=== PATIENT | male | born 1940 | race Caucasian/White ===

== ENCOUNTER 2023-06-19 10:06 | Inpatient (IN) | payer MEDICARE, SELFPAY ==
--- NOTE | 2023-06-18 22:59 | ED.GENMED ---
History of Present Illness
<KOREY Viveros - Last Filed: 06/18/23 23:24>
General
Chief Complaint: Breathing Problem
Source: patient
Exam Limitations: none
Time Seen by Provider: 06/18/23 22:43
Nursing documentation reviewed up to this point in time: agreed with
Travel History
Have you had any contact with someone who has COVID-19?: No
Do you have any symptoms of coronavirus? Fever > 100 degrees, chills, cough, shortness of breath, sore throat, loss of taste or smell, muscle aches, or headache?: No
History of Present Illness
History of Present Illness:
83 y/o M with history of afib, CHF, and HTN presents to ED c/o SOB x 7-8 days. He states that he feels short of breath with mild activity. He can only go about 3 steps before he feels SOB. This is not his usual. Patient states that the SOB was only
with activity but for the past 2-3 days, he has been feeling SOB at rest. He is also reporting leg pain, specifically left knee, for the past 4 days. He states he falls often due to leg weakness but reports the pain was prior to his falls. He uses a
walker at home. He also has associated leg swelling bilaterally for the past few weeks for which he is following his skills trainer for. Patient dose for his diuretic was doubled from 20mg am/20mg pm to 40mg am and 40mg pm due to increased swelling.
He also reports a home nurse visits his house often to help check his weight for fluid retenion and monitor symptoms. He has an appointment with cardiology tomorrow but may cancel due to his pain and SOB. Patient denies nausea, vomiting, diarrhea,
cough, congestion, chest pain, palpitations or dizziness.
Past History
<KOREY Viveros - Last Filed: 06/18/23 23:24>
Past History
ED Past Medical History: Arrthythmia (Paroxysmal atrial fibrillation), CHF, COPD, CVA, HTN, Hypercholesterolemia and Other (CKD)
ED Past Surgical History: Orthopedic (Resection of a thoracic spine lesion and spinal fusion)
Social History
Tobacco: Former smoker
Alcohol: None
Drug: None
Personal:
Living: alone
Employment: Retired
Family History
Family History: Other (Noncontributory)
Review of Systems
<KOREY Viveros - Last Filed: 06/18/23 23:24>
Review of Systems
Allergies reviewed?: Yes
All Other Systems: ROS reviewed and negative except as documented in HPI and ROS
Constitutional: Reports no symptoms
EENT: Reports no symptoms
Respiratory: Reports trouble breathing
Cardiac: Reports other (edema )
ABD/GI: Reports no symptoms
: Reports no symptoms
Musculoskeletal: Reports edema and other (leg pain)
Skin: Reports no symptoms
Neurological: Reports no symptoms
Endocrine: Reports no symptoms
Hematologic/Lymphatic: Reports no symptoms
Psychiatric: Reports no symptoms
Phy Exam
<KOREY Viveros - Last Filed: 06/18/23 23:24>
General Physical Exam
General Presentation: well appearing and no apparent distress
General age: appears stated age
General Skin: warm and dry
General Habitus: normal
General Mental: alert
General Hydration: appears well hydrated
ENT Exam
ENT Exam: EOMI, TM's normal, pharynx normal and neck supple
Eye Exam
Eye Exam: PERRL and EOMI
Cardiovascular Exam
Cardiovascular Exam: irregularly irregular
Pulmonary Exam
Pulmonary Exam: lungs clear and no respiratory distress
Neurological Exam
Neurological Exam: alert and oriented x3
Musculoskeletal Exam
Musculoskeletal Exam: neuro vasc intact and other (tender along lateral medial and posterior patella border, L knee mildly swollen )
Skin Exam
Skin Exam: other (edema and erythema in bilateral legs)
<Phyllis Pettit DO - Last Filed: 06/19/23 02:24>
Heart Failure Risk
Heart Failure Risk Score: Yes
History of Stroke or TIA: Yes
History of intubation for respiratory distress: No
Heart rate on ED arrival >/= 110: No
SaO2 <90% on arrival on room air: No
HR >/=110 during 3min walk test (or too ill to perform test): Yes
ECG has acute ischemic changes: No
Urea >/=12mmol/L (BUN 33.6mg/dL): No
Serum CO2>/=35mmol/L: No
Troponin I or T elevated to VT Level (0.4mg/dL): No
NT-proBNP >/=5,000ng/L (5,000pg/ml): No
HF Risk Score: 3
Admission Status: HIGH RISK 15.9% Consider SNF treatment or admission to hospital
Course
<KOREY Viveros - Last Filed: 06/18/23 23:24>
Orders/Labs/Results
Orders:
Orders
06/18/23 21:25
Electrocardiogram (*1) Urgent
Reason for Study: Chest Pain
Cardiac Monitoring- Treatment ONCE
EKG- Treatment ONCE
IV Insert/Care/Rem.- Treatment PRN
O2 Therapy [RESP] Urgent
Titrate/Wean O2 to maintain O2 sat greater than (%): 90
Special Instructions: Maintain sats >/=90%
Pulse Ox/spot Check [RESP] Urgent
Quantity: 1
Special Instructions: ON ROOM AIR
06/18/23 23:03
CR Chest - 2 Views Urgent
Comment:
Reason For Exam: SOB, hx CHF, COPD
06/18/23 23:29
Knee, Left 4 or More Views [CR Knee - Left 4 Or More View*] Urgent
Comment:
Reason For Exam: knee pain
06/18/23 23:44
Complete Blood Count/With Diff Urgent
Sed Rate [Erythrocyte Sed Rate] Urgent
06/18/23 23:45
Pro-BNP [NT-proBNP] Urgent
Troponin I Urgent
06/19/23 00:00
US Periph Venous LOWER Ext Manjit Urgent
Reason For Exam: progressive b/l LE edema, SOB
06/19/23 00:40
Interrogate Pacemaker- Treatment ONCE
06/19/23 01:09
Comprehensive Metabolic Panel Urgent
PTT Urgent
Uric Acid Urgent
Comment: REDRAW
Abnormal Lab Results
06/19/23 06/19/23
00:41 01:09
RBC 4.00 L 10^6/uL
(4.70-6.10)
Hgb 12.2 L g/dL
(13.0-18.0)
Hct 37.7 L %
(39.0-52.0)
MCV 94.3 H fL
(80.0-94.0)
MCHC 32.4 L g/dL
(33.0-37.0)
Abs Immat Gran (auto) 0.1 H 10^3/uL
(0-0.05)
Absolute Neuts (auto) 8.2 H 10^3/uL
(1.4-6.5)
Absolute Monos (auto) 0.9 H 10^3/uL
(0.1-0.6)
Immature Gran % 1.2 H %
(0-0.5)
Neutrophils % 78.3 H %
(42.2-75.2)
Lymphocytes % 11.0 L %
(20.5-51.1)
ESR 52 H mm/hour
(0-20)
Chloride 110 H mmol/L
(98-107)
BUN 27 H mg/dl
(9-20)
Uric Acid 10.2 H mg/dl
(3.5-8.5)
Calcium 7.7 L mg/dl
(8.4-10.2)
Total Protein 6.0 L g/dl
(6.3-8.2)
Albumin 3.2 L g/dl
(3.5-5.0)
06/19/23 00:41
06/19/23 01:09
Vital Signs
Initial and Last Documented VS:
Initial Vital Signs
Temp Pulse Resp Pulse Ox
97.8 F 86 28 95
06/18/23 21:19 06/18/23 21:19 06/18/23 21:19 06/18/23 21:19
Last Documented Vital Signs
Temp Pulse Resp Pulse Ox
97.8 F 86 28 95
06/18/23 21:19 06/18/23 21:19 06/18/23 21:19 06/18/23 21:19
<Phyllis Pettit DO - Last Filed: 06/19/23 02:24>
Orders/Labs/Results
Orders:
Orders
06/18/23 21:25
Electrocardiogram (*1) Urgent
Reason for Study: Chest Pain
Cardiac Monitoring- Treatment ONCE
EKG- Treatment ONCE
IV Insert/Care/Rem.- Treatment PRN
O2 Therapy [RESP] Urgent
Titrate/Wean O2 to maintain O2 sat greater than (%): 90
Special Instructions: Maintain sats >/=90%
Pulse Ox/spot Check [RESP] Urgent
Quantity: 1
Special Instructions: ON ROOM AIR
06/18/23 23:03
CR Chest - 2 Views Urgent
Comment:
Reason For Exam: SOB, hx CHF, COPD
06/18/23 23:29
Knee, Left 4 or More Views [CR Knee - Left 4 Or More View*] Urgent
Comment:
Reason For Exam: knee pain
06/18/23 23:44
Complete Blood Count/With Diff Urgent
Sed Rate [Erythrocyte Sed Rate] Urgent
06/18/23 23:45
Pro-BNP [NT-proBNP] Urgent
Troponin I Urgent
06/19/23 00:00
US Periph Venous LOWER Ext Manjit Urgent
Reason For Exam: progressive b/l LE edema, SOB
06/19/23 00:40
Interrogate Pacemaker- Treatment ONCE
06/19/23 01:09
Comprehensive Metabolic Panel Urgent
PTT Urgent
Uric Acid Urgent
Comment: REDRAW
Abnormal Lab Results
06/19/23 06/19/23
00:41 01:09
RBC 4.00 L 10^6/uL
(4.70-6.10)
Hgb 12.2 L g/dL
(13.0-18.0)
Hct 37.7 L %
(39.0-52.0)
MCV 94.3 H fL
(80.0-94.0)
MCHC 32.4 L g/dL
(33.0-37.0)
Abs Immat Gran (auto) 0.1 H 10^3/uL
(0-0.05)
Absolute Neuts (auto) 8.2 H 10^3/uL
(1.4-6.5)
Absolute Monos (auto) 0.9 H 10^3/uL
(0.1-0.6)
Immature Gran % 1.2 H %
(0-0.5)
Neutrophils % 78.3 H %
(42.2-75.2)
Lymphocytes % 11.0 L %
(20.5-51.1)
ESR 52 H mm/hour
(0-20)
Chloride 110 H mmol/L
(98-107)
BUN 27 H mg/dl
(9-20)
Uric Acid 10.2 H mg/dl
(3.5-8.5)
Calcium 7.7 L mg/dl
(8.4-10.2)
Total Protein 6.0 L g/dl
(6.3-8.2)
Albumin 3.2 L g/dl
(3.5-5.0)
06/19/23 00:41
06/19/23 01:09
Vital Signs
Initial and Last Documented VS:
Initial Vital Signs
Temp Pulse Resp Pulse Ox
97.8 F 86 28 95
06/18/23 21:19 06/18/23 21:19 06/18/23 21:19 06/18/23 21:19
Last Documented Vital Signs
Temp Pulse Resp Pulse Ox
97.8 F 86 28 95
06/18/23 21:19 06/18/23 21:19 06/18/23 21:19 06/18/23 21:19
<KOREY Viveros - Last Filed: 06/18/23 23:24>
MDM/Problems Addressed
Differential Diagnosis Includes:
Arrhythmia
CHF
Knee fracture?
<Phyllis Pettit DO - Last Filed: 06/19/23 02:24>
*Radiology
Radiology exam reviewed: preliminary read by ED provider (Chest x-ray shows cardiomegaly, mild interstitial fullness, perhaps minimally improved compared to previous film June 2022. No evidence of infiltrate. Left knee x-ray shows mild DJD, no
evidence of fracture.) and radiology read reviewed (Venous Doppler bilateral lower extremities negative for DVT.)
*Pulse Oximetry
Patient hypoxic: no
*EKG
Interpreted by ED Provider?: Yes
Interpretation: abnormal
Comparison EKG: changes noted (Atrial fibrillation is new compared to previous EKG showing normal sinus rhythm.)
Rate: normal
Rhythm: a-fib
[place]: left axis deviation
Interval: normal QT interval
QRS Pattern: normal QRS
Ischemia: no ischemia
*Regulator Assembler Interpretation
Rate: normal
Interpretation: abnormal
Rhythm: a-fib
*Critical Care Note
Total Time (30-74mins, 75-104mins- exclusive of procedures): Not Applicable
ED Attending Note
<KOREY Viveros - Last Filed: 06/18/23 23:24>
-
Portions of this chart may have been created with voice recognition software.� Occasional wrong word or��sound alike� substitutions may have occurred due to the inherent limitations of voice recognition software.
<Phyllis Pettit DO - Last Filed: 06/19/23 02:24>
ED Attending Note
Patient seen and examined by attending physician: Yes
I performed the substantive portion of visit, reviewed & personally made and approve the management plan that is documented in note by myself or BALTAZAR.: Yes
I performed a history and physical exam of patient and discussed management with resident, I reviewed resident's note and agree with documented findings and plan of care.: Yes
ED Attending Note:
This is an 83-year-old gentleman who has history of chronic diastolic CHF, paroxysmal atrial fibrillation maintained on Pradaxa, hypertension, chronic lymphedema, COPD, hyperlipidemia, hypothyroidism with previous hospitalization July 2022 for
acute on chronic CHF.
He follows with cardiology, Dr. Shin and was evaluated by PA in office 5 weeks ago due to some dyspnea on exertion and progression of bilateral lower extremity edema. At that time torsemide was increased from 20 mg twice daily to 40 mg twice
daily.
Despite increase in diuretic and despite minimal improvement/downtrend in weights he continues with significant bilateral lower extremity edema and has had progressive dyspnea on exertion much more so over the past week especially over the past 2 to
3 days.
He denies cough nor fever, denies palpitations nor chest pain, denies dizziness nor lightheadedness.
He has prior history of gout but reports no recent gout attacks.
He does however complain of left anterior knee pain that began 3 to 4 days ago. He has suffered several falls to his knees. He chronically uses a walker to ambulate and states over the past several weeks his legs have 'given out on him' and he has
fallen onto his knees most recently this morning. He has had no head injuries, no loss of consciousness, no neck or back pain.
He has a follow-up appointment with Dr. Shin scheduled for tomorrow but due to progressive dyspnea on exertion, much more so over the past few days he had a friend dropped him off at the [facility].
GENERAL: 83-year-old obese gentleman appears his stated age. Awake and alert, appears in no acute distress. Mild resting tachypnea noted when speaking. No cough appreciated.
EYE: pupils equal and reactive. anicteric
NECK: Supple, nontender, no meningismus, no significant adenopathy. Mild JVD.
ENT: oral mucosa is moist. No rhinorrhea.
CARDIAC: Irregularly irregular at a rate of 60-80, no murmur.
LUNGS: Mild resting tachypnea. Scant bibasilar rales otherwise lungs are clear to auscultation. No cough appreciated.
ABDOMEN: Rotund, soft, nondistended, without focal tenderness, no r/g, no cvat. normoactive BS.
NEUROLOGICAL: Alert and oriented x3, no focal neuro deficits.
SKIN: Warm and dry, mildly pale in color, skin intact. Moderate erythematous inguinal rash bilaterally. There is moderate global erythema to the left great toe.
MUSCULOSKELETAL: Significant global edema bilateral lower extremities left leg greater than right leg. There is very minimal ecchymosis left anterior knee with mild to moderate tenderness to palpation left anterior knee. No definitive joint
effusion, no erythema. There is full knee range of motion with increased pain with flexion greater than 90 degrees. No crepitus. No laxity. There is moderate global erythema to the left great toe with moderate local tenderness to palpation. No
lymphangitis. No tenderness to the foot nor ankle. Peripheral pulses are full and equal b/l.
PSYCH: Normal and appropriate interaction.
Concern for acute exacerbation of CHF, less likely exacerbation of COPD especially with lack of cough. Pneumonia is less likely as well with lack of cough nor fever.
Patient has no prior history of DVT nor previous thromboembolism and although no history of chronic lymphedema bilateral lower extremity, left leg is globally larger than right thus concern for potential DVT. Will check ultrasound bilateral lower
extremities.
He has history of paroxysmal A-fib, currently in A-fib with controlled ventricular response. Unclear as to how long he has been in A-fib. Will attempt to interrogate [employer] recorder. Patient himself believes EKG was performed 5 weeks ago at
skills trainer office and he recalls no mention of A-fib at that time.
Exam remarkable for bilateral inguinal erythema most consistent with tinea cruris. Cellulitis is less likely.
He is also noted to have moderate global erythema and mild to moderate tenderness left great toe which may be gout related. Focal cellulitis is another consideration.
06/19/2023 0211 AM
Labs show elevated BNP at 2600, this has trended up from 1800 in April.
Troponin is negative.
Creatinine 1.3, baseline 1.0-1.3 with occasional uptrend to 1.5/1.8.
Mildly to moderately elevated sed rate of 50, similar elevation noted previously as well as moderately elevated uric acid of 10 has trended down slightly from 2021 but remains elevated.
CBC shows mild anemia, similar to previous.
Chest x-ray shows cardiomegaly, very minimal interstitial fullness, overall similar to previous June 2022.
Left knee x-ray shows mild DJD, no evidence of fracture.
Venous Doppler bilateral lower extremities negative for DVT.
Due to progressive dyspnea on exertion, now unable to ambulate more than 2 to 3 feet without needing to stop to rest I suspect this is related to acute on chronic CHF and patient will require acute hospitalization.
Will initiate IV Lasix and admit to hospitalist service.
Discharge Plan
Departure
Patient Disposition: Admit
Date of Disposition: 06/19/23
Time of Disposition: 02:21
Admit to: Telemetry
Admit to doctor: Micah
Presentation/result/management discussed w/ accepting MD/DO: Hospitalist
Condition: Fair
Discharge Problem:
Acute on chronic diastolic (congestive) heart failure, Atrial fibrillation with controlled ventricular rate, Contusion of knee, left, Tinea cruris
Prescriptions:
No Action
atorvastatin 40 MG tablet
40 mg PO QPM
dabigatran etexilate [Pradaxa] 150 MG capsule
150 mg PO BID
folic acid 0.4 MG tablet
1 mg PO Q48H
tamsulosin 0.4 MG capsule
0.4 mg PO HS
finasteride 5 MG tablet
5 mg PO HS
metoprolol tartrate 25 MG tablet
25 mg PO BID
aspirin 81 MG tablet,delayed release (DR/EC)
81 mg PO DAILY
multivitamin with folic acid [Tab-A-Rikki] 1 TABLET tablet
1 tab PO TUTH
levothyroxine 112 MCG tablet
112 mcg PO DAILY
fluoxetine [Prozac] 40 MG capsule
40 mg PO HS
albuterol sulfate [ProAir HFA] 90 mcg/actuation Hfa Aerosol Inhaler
2 inh INHALATION R BID
Anoro Ellipta 62.5-25 mcg/actuation Blister With Device
1 inh INHALATION R DAILY
acetaminophen 325 MG tablet
650 mg PO Q4HPRN PRN (Reason: mild pain)
torsemide 20 mg Tablet
20 mg PO BID@0800,1600 Qty: 60 0RF
hydralazine 25 mg Tablet
25 mg PO TID Qty: 90 0RF
potassium chloride [Klor-Con] 20 mEq Packet
20 meq PO BID@0800,1600 Qty: 60 0RF
prednisone 20 mg Tablet
40 mg PO DAILY Qty: 4 0RF
mirtazapine 30 MG tablet
15 mg PO HS Qty: 0 0RF
Referrals:
Rajiv Pavon MD [Family Provider] -
Interventions
Interventions:
*General Assessment Last Done: 06/18/23 21:19
*Neglect/Abuse Screening Last Done: 06/18/23 21:19
ED- Fall Risk Assessment Last Done: 06/18/23 21:19
*ED COVID-19 Vaccine History Last Done: 06/18/23 21:19
[2023-06-18 23:00] VITALS: BP 137/71
[2023-06-19] VITALS (12 sets, daily range): BP systolic 123–182; BP diastolic 61–106; BMI 42.7; BMI 41.9
[2023-06-19 00:56] LABS: % Basophils 0.2 % (0-2); % Immature Granulocytes 1.2 % (0-0.5); % Monocytes 8.3 % (1.7-9.3); % Neutrophils 78.3 % (42.2-75.2); Absolute Eosinophils 0.1 10^3/uL (0-0.7); Absolute Immature Granulocytes 0.1 10^3/uL (0-0.05); Absolute Lymphocytes 1.2 10^3/uL (1.2-3.4); Absolute Monocytes 0.9 10^3/uL (0.1-0.6); Absolute Neutrophils 8.2 10^3/uL (1.4-6.5); Hematocrit 37.7 % (39.0-52.0); Hemoglobin 12.2 g/dL (13.0-18.0); Mean Corp Hgb Conc. 32.4 g/dL (33.0-37.0); Mean Corpuscular Hgb 30.5 pg (27.0-31.0); Mean Corpuscular Volume 94.3 fL (80.0-94.0); Mean Platelet Volume 9.9 fL (7.4-10.4); Nucleated Red Blood Cells % 0 % (-); Platelet Count 201 10^3/uL (130-400); Red Cell Dist. Width 14.4 % (11.5-14.5); White Blood Cell Count 10.4 10^3/uL (4.8-10.8)
[2023-06-19 01:14] LABS: NT-proBNP 2610 pg/ml; Troponin I < 0.012 ng/ml
[2023-06-19 01:31] LABS: Erythrocyte Sed Rate 52 mm/hour (0-20)
[2023-06-19 01:35] LABS: APTT 30.3 Sec (23.4-35.0)
[2023-06-19 01:45] LABS: ALT (SGPT) 10 U/L (0-50); AST (SGOT) 18 U/L (17-59); Albumin 3.2 g/dl (3.5-5.0); Alkaline Phosphatase 99 U/L (38-126); Blood Urea Nitrogen 27 mg/dl (9-20); Calcium 7.7 mg/dl (8.4-10.2); Carbon Dioxide 26 mmol/L (22-30); Chloride 110 mmol/L (98-107); Glucose 97 mg/dl (70-99); Potassium 3.7 mmol/L (3.5-5.1); Sodium 141 mmol/L (135-145); Total Bilirubin 0.4 mg/dl (0.2-1.3); Uric Acid 10.2 mg/dl (3.5-8.5); eGFR 54.51
[2023-06-19] MEDS: LASIX 40 MG IV ×3 (02:42→16:14)
--- NOTE | 2023-06-19 05:09 | HPS.HSE ---
Family Physician
-
Family Physician: Rajiv Pavon
Chief Complaint
-
SOB
History of Present Illness
Allergies
Allergy/AdvReac Type Severity Reaction Status Date / Time
No Known Allergies Allergy Verified 06/18/23 21:17
Home Medications
atorvastatin 40 mg tablet 40 mg PO QPM High cholesterol 01/19/20
dabigatran etexilate 150 mg capsule (Pradaxa) 150 mg PO BID Blood clot prevention/tx 01/19/20
aspirin 81 mg tablet,delayed release 81 mg PO DAILY Blood clot prevention/tx 04/07/20
finasteride 5 mg tablet 5 mg PO HS Urinary issue 04/07/20
folic acid 400 mcg tablet 1 mg PO Q48H Supplement 04/07/20
metoprolol tartrate 25 mg tablet 25 mg PO BID Blood pressure 04/07/20
multivitamin with folic acid 400 mcg tablet (Tab-A-Rikki) 1 tab PO TUTH Supplement 04/07/20
tamsulosin 0.4 mg capsule 0.4 mg PO HS Urinary issue 04/07/20
levothyroxine 112 mcg tablet 112 mcg PO DAILY Thyroid 07/21/21
fluoxetine 40 mg capsule (Prozac) 40 mg PO HS Mental Health/Anxiety 11/02/21
acetaminophen 325 mg tablet 650 mg PO Q4HPRN PRN mild pain 06/27/22
albuterol sulfate 90 mcg/actuation aerosol inhaler (ProAir HFA) 2 inh inhalation R BID PRN SOB 06/27/22
umeclidinium 62.5 mcg-vilanterol 25 mcg/actuation powdr for inhalation (Anoro Ellipta) 1 inh inhalation R DAILY 06/27/22
hydralazine 25 mg tablet 25 mg PO TID #90 tabs 07/07/22
mirtazapine 30 mg tablet 15 mg PO HS Mental Health/Anxiety #0 tabs 07/07/22
potassium chloride 20 mEq oral packet (Klor-Con) 20 meq PO BID@0800,1600 #60 ea 07/07/22
torsemide 20 mg tablet 40 mg PO BID@0800,1600 06/19/23
Medical History
Past Medical History
Past Medical History: Reports Arrhythmia (PAF on Pradaxa), CHF (HFpEF), COPD, HTN, Hypercholesterolemia, Renal Failure (CKD) and Other
Past Surgical History: Reports Cardiac (Cardioversion 06/30/22, [employer] )
Social History
Tobacco: Non-smoker
Alcohol: None
Drug: None
Family History
Family History: Not pertinent
Allergies / Home Medications
Allergies reflects when Allergies were last updated in [employer].
Home Medications with original date entered in [employer]
Allergy/Medication List:
Allergies
Allergy/AdvReac Type Severity Reaction Status Date / Time
No Known Allergies Allergy Verified 06/18/23 21:17
Home Medications
atorvastatin 40 mg tablet 40 mg PO QPM High cholesterol 01/19/20
dabigatran etexilate 150 mg capsule (Pradaxa) 150 mg PO BID Blood clot prevention/tx 01/19/20
aspirin 81 mg tablet,delayed release 81 mg PO DAILY Blood clot prevention/tx 04/07/20
finasteride 5 mg tablet 5 mg PO HS Urinary issue 04/07/20
folic acid 400 mcg tablet 1 mg PO Q48H Supplement 04/07/20
metoprolol tartrate 25 mg tablet 25 mg PO BID Blood pressure 04/07/20
multivitamin with folic acid 400 mcg tablet (Tab-A-Rikki) 1 tab PO TUTH Supplement 04/07/20
tamsulosin 0.4 mg capsule 0.4 mg PO HS Urinary issue 04/07/20
levothyroxine 112 mcg tablet 112 mcg PO DAILY Thyroid 07/21/21
fluoxetine 40 mg capsule (Prozac) 40 mg PO HS Mental Health/Anxiety 11/02/21
acetaminophen 325 mg tablet 650 mg PO Q4HPRN PRN mild pain 06/27/22
albuterol sulfate 90 mcg/actuation aerosol inhaler (ProAir HFA) 2 inh inhalation R BID PRN SOB 06/27/22
umeclidinium 62.5 mcg-vilanterol 25 mcg/actuation powdr for inhalation (Anoro Ellipta) 1 inh inhalation R DAILY 06/27/22
hydralazine 25 mg tablet 25 mg PO TID #90 tabs 07/07/22
mirtazapine 30 mg tablet 15 mg PO HS Mental Health/Anxiety #0 tabs 07/07/22
potassium chloride 20 mEq oral packet (Klor-Con) 20 meq PO BID@0800,1600 #60 ea 07/07/22
prednisone 20 mg tablet 40 mg PO DAILY #4 tabs 07/07/22
torsemide 20 mg tablet 40 mg PO BID@0800,1600 06/19/23
Review of Systems
-
A 12 point ROS was completed and negative except as noted: Yes
Physical Exam
Vital Signs
Vital Signs
Temp Pulse Resp BP Pulse Ox
97.8 F 68 21 131/78 93
06/18/23 21:19 06/19/23 04:45 06/19/23 04:45 06/19/23 04:00 06/19/23 04:45
Physical Exam
General: Well Developed, Well Nourished and No Apparent Distress
HEENT: NormoCephalic, Anicteric and Moist mucous membranes
Respiratory: Clear
Cardiac: S1/S2 and Regular Rhythm
GI: Soft, Non Tender, Non Distended and Normal Bowel Sounds
Musculoskeletal: No Clubbing, No Cyanosis, Edema, Left Lower Extremity and Edema, Right Lower Extremity
Skin: Warm and Dry
Neuro: AO x 3 and No Motor Deficits
Psych: Calm
Laboratory Results
-
06/19/23 00:41
06/19/23 01:09
Laboratory Results
APTT 30.3 Sec (23.4-35.0) 06/19/23 01:09
Total Bilirubin 0.4 mg/dl (0.2-1.3) 06/19/23 01:09
AST 18 U/L (17-59) 06/19/23 01:09
ALT 10 U/L (0-50) 06/19/23 01:09
Alkaline Phosphatase 99 U/L (38-126) 06/19/23 01:09
Troponin I < 0.012 ng/ml 06/19/23 00:41
Impression/Plan
-
IMPRESSION:
The patient is an 83 year old male with PMH significant for Atrial fibrillation, CHF, and HTN who presents to the ED due to dyspnea for the past 8 days, worse with mild activity. He also notes SOB at rest over the past 2-3 days. est. He is also
reporting leg pain, specifically left knee, for the past 4 days along with leg swelling. He recently increased Torsemide from 20 mg BID to 40 mg BID with good urine output.
ED txt:
Lasix 40 mg IV once
#Acute on chronic diastolic heart failure
-continue IV Lasix BID 40 mg
-Cardiology consultation is appreciated
-intake/output and daily weights
-monitor and replete electrolytes as needed
-check Mg and TSH
-Echo on 04/2023 normal LV function, mild pulmonary HTN, EF 55-60%
#Persistent A.fib
-continue BB and Pradaxa
#HTN
#HLD
#CKD creat is 1.3 (04/26/23 creat is 1.7)
DVT proph-Pradaxa
Full Code
[2023-06-19 07:03] LABS: Troponin I < 0.012 ng/ml
--- NOTE | 2023-06-19 08:30 | CON.CAR ---
Consultation
Consultation Request
Date/Time Consultation Requested: 06/19/19
Requesting Provider: Dr Obrien
Performing Provider: Dr Shin
Reason for Consultation: sob
Medical History
-
Chief Complaint: sob
History of Present Illness:
83-year-old gentleman who is well-known to me with a past medical history of HFpEF, persistent atrial fibrillation on Pradaxa, CKD 3A, COPD, hypertension, morbid obesity and lymphedema presented to the ED yesterday for evaluation of increasing
shortness of breath over the last 7 to 8 days. He was feeling winded with only 2-3 steps but over the last several days it has occurred with rest. He states he is not taking his torsemide as per shortness of breath come on all of a sudden and are
fleeting. Probably, he is having episodes of intermittent chest pain described as a burning in the left upper chest. These are also intermittent. He has had increasing lower extremity edema. He is not wrapping his legs. He is trying to be good
about his salt and fluid intake. He is compliant with his Pradaxa and reports no abnormal bleeding..
Past Medical History
Past Medical History: Arrhythmias (chronic afib), CHF (HFpEF), COPD, CVA, HTN, Hypothyroidism and Other
Social History
Tobacco: Non-Smoker
Alcohol: None
Living: Alone
Family History
Family History: Reviewed & Not Pertinent
Allergies / Home Medications
Allergy/AdvReac Type Severity Reaction Status Date / Time
No Known Allergies Allergy Verified 06/18/23 21:17
Medication Instructions Recorded Confirmed Type
atorvastatin 40 mg tablet 40 mg PO QPM High cholesterol 01/19/20 06/27/22 History
dabigatran etexilate 150 mg 150 mg PO BID Blood clot 01/19/20 06/27/22 History
capsule (Pradaxa) prevention/tx
aspirin 81 mg tablet,delayed 81 mg PO DAILY Blood clot 04/07/20 06/27/22 History
release prevention/tx
finasteride 5 mg tablet 5 mg PO HS Urinary issue 04/07/20 06/27/22 History
folic acid 400 mcg tablet 1 mg PO Q48H Supplement 04/07/20 06/27/22 History
metoprolol tartrate 25 mg tablet 25 mg PO BID Blood pressure 04/07/20 06/27/22 History
multivitamin with folic acid 400 1 tab PO TUTH Supplement 04/07/20 06/27/22 History
mcg tablet (Tab-A-Rikki)
tamsulosin 0.4 mg capsule 0.4 mg PO HS Urinary issue 04/07/20 06/27/22 History
levothyroxine 112 mcg tablet 112 mcg PO DAILY Thyroid 07/21/21 06/27/22 History
fluoxetine 40 mg capsule (Prozac) 40 mg PO HS Mental Health/Anxiety 11/02/21 06/27/22 History
acetaminophen 325 mg tablet 650 mg PO Q4HPRN PRN mild pain 06/27/22 06/27/22 History
albuterol sulfate 90 mcg/actuation 2 inh inhalation R BID PRN SOB 06/27/22 06/27/22 History
aerosol inhaler (ProAir HFA)
umeclidinium 62.5 mcg-vilanterol 1 inh inhalation R DAILY 06/27/22 06/27/22 History
25 mcg/actuation powdr for
inhalation (Anoro Ellipta)
hydralazine 25 mg tablet 25 mg PO TID #90 tabs 07/07/22 Rx
mirtazapine 30 mg tablet 15 mg PO HS Mental Health/Anxiety 07/07/22 06/27/22 Rx
#0 tabs
potassium chloride 20 mEq oral 20 meq PO BID@0800,1600 #60 ea 07/07/22 Rx
packet (Klor-Con)
prednisone 20 mg tablet 40 mg PO DAILY #4 tabs 07/07/22 Rx
torsemide 20 mg tablet 40 mg PO BID@0800,1600 06/19/23 History
Review of Systems
-
All other systems: Negative unless noted
Physical Exam
Vital Signs
Temp Pulse Resp BP Pulse Ox
97.8 F 75 28 127/68 93
06/18/23 21:19 06/19/23 07:30 06/19/23 07:30 06/19/23 07:00 06/19/23 07:15
Lab Results
06/19/23 00:41
06/19/23 01:09
Troponin I < 0.012 ng/ml 06/19/23 06:29
Yil-Y-Fxlxxktvnof Pept 2610 pg/ml 06/19/23 00:41
Physical Exam
General: Well Developed and Well Nourished
HEENT: Normocephalic
Respiratory: Clear, Wheezes (None), Crackles (None) and Rhonchi (None)
Cardiac: S1/S2, Irregular Rhythm, Murmur (None), Rub (None) and Peripheral Edema (Severe bilateral edema with mostly nonpitting and edema into the toes. Skin changes consistent of chronic lymphedema)
GI: Soft, Non Tender and Non Distended
Musculoskeletal: No Clubbing and No Cyanosis
Neuro: AO x 3
Impression / Plan
-
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
with complaints of shortness of breath.
Shortness of breath and chest pain: Intermittent, difficult to say what is the etiology.
-He has chronic lymphedema which makes it difficult to assess his body habitus. His chest x-ray is not overwhelming for volume overload.
Kidney function is normal.
-His risk factors, I would like to evaluate him with a right and left heart catheterization. This will help us evaluate his filling pressures and rule out ischemia as a source of his symptoms
HFpEF - chronic I suspect a an acute element to this.
Will continue with diuresis today.
will david out sglt2 inhibitor
Chronic Atrial Fibrillation
-Rates controlled
-Oral Anticoagulation: Continue�Pradaxa 150 mg BID. CrCl remains >30
-[id number]: score 6 (Heart failure, HTN, age 75 or more, prior Stroke/TIA)---will bridge while holding pradaxa for cath
� � �
HTN Urgency: resolved
-Continue�Hydralazine 25 mg TID.
CKD3a
-Follow with diuresis: stable
Obesity, morbid - BMI 42
Prior CVA
Chronic Lymphedema - add MEGAN wraps
Data:TTE 04/25/23: �
�Normal left ventricular size and systolic function without regional wall motion
�abnormality.
�Cannot comment on right ventricular size, but function appears normal.
PASP 46mmHG, IVC normal
�Compared to previous echo 06/28/2022, the prior study used Definity images. The
�pulmonary pressure has decreased from 55mmHg on the prior study.� The right
�ventricle now appears normal in function.
Data Reviewed
-
EKG: Tracing Personally Visualized and interpreted (atrial fibrillation with controlled ventricular response, ns st wane changes. )
Radiology: Image Personally Visualized and interpreted (no significant acute finding. )
Ultrasound: Report Reviewed by me (06/19/23 KAREN negative)
[2023-06-19] MEDS: STRIVERDI RESPIMAT 2 PUFF INH (08:32)
[2023-06-19] MEDS: SPIRIVA RESPIMAT 2.5 MCG 2 PUFF INH (08:32)
[2023-06-19] MEDS: ASPIR LOW (ENTERIC COATED) 81 MG PO (08:50)
[2023-06-19] MEDS: APRESOLINE 25 MG PO ×3 (08:50→22:54)
[2023-06-19] MEDS: SYNTHROID 112 MCG PO (08:51)
[2023-06-19] MEDS: PRADAXA 150 MG PO (08:51)
[2023-06-19] MEDS: FOLVITE 1 MG PO (08:52)
[2023-06-19] MEDS: LOPRESSOR 25 MG PO (08:52)
[2023-06-19] MEDS: THERAGRAN 1 TABLET PO (09:02)
--- NOTE | 2023-06-19 09:23 | W.PN.HOSP.TC ---
Today's Communication/Plan
-
cont iv diuresis, plan for cardiac cath
Assessment / Plan
Assessment / Plan
Physical exam:
General: Acutely ill, obese
HEENT: Normocephalic, Atraumatic and Moist Mucous Membranes
Respiratory: Scattered wheezes; Some crackles B/L. Negative Rhonchi
Cardiac: Irregular Rate and Rhythm and S1/S2
GI: Soft, Nontender and Nondistended
Musculoskeletal: No Clubbing, No Cyanosis. B/L Edema
Neuro: Awake, Alert and Oriented
Psych: Calm
A/P:
Acute on chronic diastolic heart failure/chest pain--> continue IV Lasix BID 40 mg, cardiology consult appreciated-->discussed with supervisor channel process today, Echo on 04/2023 normal LV function, mild pulmonary HTN, EF 55-60%. Start heparin drip tonight and
plan for cardiac cath tomorrow.
Persistent A.fib-->continue BB and Pradaxa(can hold for cardiac cath).
CKD--> avoid nephrotoxics, cont to monitor while diurese,
HTN--> cont current anti-hypertensives and adjust meds according to BP
Morbid obesity--> affect all spheres of care, might benefit from OP bariatric surgery if candidate.
DVT proph-Pradaxa-->heparin gtt
Full Code
Total time spent on today's encounter was 52 minutes which included time spent in counseling the patient/family regarding diagnosis and treatment plan as listed above, goals of care, and symptom management. Case was discussed with nursing staff,
specialists, and care coordinators/case management. All labs and imaging personally reviewed by me. Remainder the time spent in detailed review of previous records, lab data, imaging, and other medical provider documentation
Anticipated Discharge: > 48 hours
Subjective/Interval History
-
Date of Service: June 19, 2023
patient c/o sob, wheezing, LE edema. No cp today but had cp over the weekend prior to admission.
Objective Data
-
Labs:
Laboratory Results
06/19/23 06/19/23
00:41 01:09
WBC 10.4
Hgb 12.2 L
Hct 37.7 L
Plt Count 201
APTT 30.3
Sodium Cancelled 141
Potassium Cancelled 3.7
Chloride Cancelled 110 H
Carbon Dioxide Cancelled 26
BUN Cancelled 27 H
Creatinine Cancelled 1.3
Glucose Cancelled 97
Calcium Cancelled 7.7 L
Total Bilirubin Cancelled 0.4
AST Cancelled 18
ALT Cancelled 10
Alkaline Phosphatase Cancelled 99
Vital Signs:
Vital Signs
Temp Pulse Resp BP Pulse Ox
97.5 F 95 18 127/68 96
06/19/23 07:40 06/19/23 08:52 06/19/23 08:34 06/19/23 08:52 06/19/23 08:34
I&O
06/18/23 06/19/23 06/20/23
06:59 06:59 06:59
Output Total 200 / 200
Balance -200 / -200
--- NOTE | 2023-06-19 09:58 | VNURNOTE ---
Patient is current with [facility] since 03/08,now just w/SN, will monitor progress and plan at discharge.
[2023-06-19] MEDS: DESENEX/MITRAZOL/ZEASORB 1 APPLIC TOPICAL ×2 (10:11→22:55)
--- NOTE | 2023-06-19 10:57 | CM ---
Addendum entered by Lora Martin 06/19/23 11:15:
CM received consult for cost of Jardiance (10 mg) vs Farixga (10 mg). CM spoke with pharmacist at [facility], patient has Pacenet along with Medicare part D, has a $40 deductible monthly for Pacenet, which per Pharmacist, patients other
scripts pay into. Pharmacist reports david of Farxiga will be $15 a month would be cheaper than Jardiance.
Original Note:
Patient seen bedside, initial assessment completed. Emilio reports he lives alone in a town house, 13 steps to the second floor. Patient reports lately he has been sleeping on the couch on the first floor as steps have become difficult for him.
Patient reports he does still drive and is currently working with [facility]. Patient denies SNF. Patient confirms PCP Dr. Pavon at [facility], pharmacy used is [facility] in [place]. CM will continue to follow for discharge planning needs.
Plan; home with [facility] vs SNF, watch for PT/OT evals.
CM received TT that patient has been switched to inpatient status.
[2023-06-19 12:09] LABS: Troponin I < 0.012 ng/ml
[2023-06-19] MEDS: TYLENOL 650 MG PO (14:40)
[2023-06-19] MEDS: LIPITOR 40 MG PO (16:14)
[2023-06-19] MEDS: HEPARIN 25000 UNITS/250 ML IV (17:42)
[2023-06-19] MEDS: LOPRESSOR PO (21:23)
[2023-06-19] MEDS: FLOMAX 0.400000000000000022 MG PO (22:54)
[2023-06-19] MEDS: PROSCAR 5 MG PO (22:55)
[2023-06-19] MEDS: PROZAC 40 MG PO (22:55)
[2023-06-19] MEDS: REMERON 15 MG PO (22:55)
[2023-06-20] VITALS (16 sets, daily range): BP systolic 118–190; BP diastolic 61–140; BMI 42.5
[2023-06-20] MEDS: TYLENOL 650 MG PO (00:27)
[2023-06-20 01:18] LABS: APTT 90.6 Sec (23.4-35.0)
[2023-06-20] MEDS: LOPRESSOR 25 MG PO (07:41)
[2023-06-20] MEDS: ASPIR LOW (ENTERIC COATED) 81 MG PO (07:41)
[2023-06-20] MEDS: SYNTHROID 112 MCG PO (07:41)
[2023-06-20] MEDS: APRESOLINE 25 MG PO ×3 (07:42→22:33)
[2023-06-20] MEDS: DESENEX/MITRAZOL/ZEASORB 1 APPLIC TOPICAL ×2 (07:42→20:14)
[2023-06-20] MEDS: LASIX 40 MG IV (07:43)
[2023-06-20] MEDS: SPIRIVA RESPIMAT 2.5 MCG 2 PUFF INH (07:48)
[2023-06-20] MEDS: STRIVERDI RESPIMAT 2 PUFF INH (07:48)
[2023-06-20 07:54] LABS: APTT 75.1 Sec (23.4-35.0)
[2023-06-20 09:00] LABS: ALT (SGPT) < 10 U/L (0-50); AST (SGOT) 16 U/L (17-59); Albumin 2.9 g/dl (3.5-5.0); Alkaline Phosphatase 85 U/L (38-126); Blood Urea Nitrogen 32 mg/dl (9-20); Calcium 8.2 mg/dl (8.4-10.2); Carbon Dioxide 27 mmol/L (22-30); Chloride 106 mmol/L (98-107); Estimated Creatinine Clearance 55 ml/min; Glucose 105 mg/dl (70-99); Potassium 3.7 mmol/L (3.5-5.1); Sodium 140 mmol/L (135-145); Total Bilirubin 0.6 mg/dl (0.2-1.3); Total Protein 5.6 g/dl (6.3-8.2); eGFR 49.87
[2023-06-20 09:29] LABS: TSH Reflex To Free T4 3.73 uIU/ml (0.47-4.68)
[2023-06-20 09:35] LABS: Magnesium 2.5 mg/dl (1.6-2.3)
--- NOTE | 2023-06-20 12:17 | PTCARENOTE ---
1212: this Rn gave report to Alfreda Crowder via phone. pt will be transferred to IVU s/p procedure. This RN did not complete a physical assessment prior to pt leaving floor. belongings brought down to pts room in the IVU.
--- NOTE | 2023-06-20 12:24 | W.PN.CD ---
Today's Communication / Plan
-
L/RHC today.
We will adjust diuretics/GDMT aftewards.
Impression / Plan
-
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
Emergency Department with complaints of shortness of breath.
#Shortness of breath and chest pain
-Intermittent, difficult to say what is the etiology. Possible unstable angina.
-He has chronic lymphedema which makes it difficult to assess his body habitus. His chest x-ray is not overwhelming for volume overload.
-Given his multiple risk factors, it is reasonable to assess his coronary anatomy and filling pressures.
-L/RHC today.
-Continue secondary prevention with high dose, high potency statin.
#Acute on chronic HFpEF
-Weight is up compared to this time last year.
-Continue furosemide 40 mg IV BID.
-Assess filling pressures at cath today.
-Not currently on ACEI/ARB/ARNi (normal EF).
-He would benefit from SGLT2i. Start dapagliflozin 10 mg daily.
#Chronic Atrial Fibrillation
-Rates controlled on metoprolol.
-[id number]: score 6 (Heart failure, HTN, age 75 or more, prior Stroke/TIA).
-Oral Anticoagulation: resume�dabigatran 150 mg BID after cardiac catheterization.
#HTN
-Urgency resolved.
-BP's remain elevated.
-Hydralazine increased to 25 mg TID from home dose (10 mg TID).
-Would add isosorbide mononitrate 30 mg daily to hydralazine in the context of heart failure. This does not have an enormous BP effect but should be added and we can reassess BP afterward.
#CKD3a
-Baseline creatinine 1.3-1.6.
-Stable at 1.4.
#Prior CVA
-Chronic.
-Carotid Duplex shows < 50% bilateral stenoses.
#Obesity, morbid - BMI 42
#Chronic Lymphedema - add MEGAN wraps
Subjective/Interval History:
Some acute shortness in breath overnight.
Episodes are intermittent, occurring with exertion and occasionally at rest.
DATA:
TTE, 04/25/23: �
�Normal left ventricular size and systolic function without regional wall motion
�abnormality.
�Cannot comment on right ventricular size, but function appears normal.
PASP 46mmHG, IVC normal
�Compared to previous echo 06/28/2022, the prior study used Definity images. The
�pulmonary pressure has decreased from 55mmHg on the prior study.� The right
�ventricle now appears normal in function.
Physical Exam
Vital Signs/Labs
Vital Signs
Temp Pulse Resp BP Pulse Ox
36.3 C 75 20 138/75 93
06/20/23 07:59 06/20/23 07:59 06/20/23 07:59 06/20/23 07:59 06/20/23 07:59
06/19/23 06/20/23 06/21/23
11:59 11:59 11:59
Actual Weight 132.477 kg 134.263 kg
06/19/23 00:41
06/20/23 07:23
APTT 75.1 Sec (23.4-35.0) H 06/20/23 07:23
Magnesium 2.5 mg/dl (1.6-2.3) H 06/20/23 07:23
06/19/23
00:41
Osd-G-Tvbvktehwxj Pept 2610
LAB Results
06/19/23 06/19/23 06/19/23
00:41 06:29 11:37
Troponin I < 0.012 < 0.012 < 0.012
Physical Exam
Constitutional: No acute distress and Comfortable
EENT: Anicteric and Moist mucous membranes
Cardiovascular: Rhythm/rate is irregular, Pedal edema present, JVD present, S1S2 is normal and Murmur/rub/gallop absent
Respiratory: Respiratory effort normal, Lungs clear to auscul., Wheeze Absent, Crackles Absent and Rhonchi Absent
GI: Soft, Distention absent, Non tender, Normal bowel sounds and Other (Obese.)
Neuro/Psych: AO x 3
Data Reviewed
-
Date of Service: June 20, 2023
Medical Decision Making: Reviewed Test Results, Independent Historian Assessment, Test Interpretation and Review of Case with other Provider
EKG: Tracing Personally Visualized and interpreted
Echo: Report Reviewed by me
X-Ray/CT/US/MRI/NUC/PET: Image Personally Visualized and interpreted and Report Reviewed by me
Labs: Labs Reviewed by me
--- NOTE | 2023-06-20 12:37 | ITS.CL.ANGIO ---
[employer] - Angioplasty
Angioplasty
Procedure Report:
CARDIAC CATHETERIZATION REPORT
Date of Procedure: 06/20/2023
Referring: Britt Shin M.D.
Indication: Unstable angina, assessment of filling pressures.
PROCEDURE:
1. Right heart catheterization.
2. Left heart catheterization.
3. Coronary angiography.
4. IFR of the mid LAD.
5. Successful PCI of the mid LAD.
ACCESS:
6 Serbian right radial artery.
5 Serbian right antecubital vein.
CATHETERS:
1. 5 Serbian balloon wedge.
2. 5 Serbian JL 3.5.
3. 5 Serbian JR4.
4. 6 Serbian EBU 4.0 guiding catheter.
HEMODYNAMIC DATA
Weight (kg): 134.3
AO (s/d/x mmHg): 143/69/97
LV (s/x mmHg): 144/24
PCWP (a/v/x mmHg): 28//25
PA (s/d/x mmHg): 57/30/39
RV (s/x mmHg): 57/17
RA (a/v/x mmHg): /
SVC SvO2 (%): 64.4
PA SvO2 (%): 61.8
SaO2 (%): 94.9
Hbg (g/dL): 11.5
CO (L/min): 5.48
CI (L/min/m2): 2.22
TPG (mmHg): 14
PVR (East Units): 2.55
SVR (dynes*seconds*cm^-5): 1168
AVO2 Diff (Volume %): 5.18
AV gradient (x, mmHg): None.
AV area (cm2): Normal.
LEFT VENTRICULOGRAPHY: Not performed.
CORONARY ANGIOGRAPHY
Dominance: Codominant.
Left Main: Normal size, bifurcating vessel. There is no coronary artery disease.
LAD: Normal size vessel giving rise to 1 significant diagonal. There is a long, 30% lesion culminating in a 70% lesion in the mid vessel.
Ramus: Congenitally absent.
Circumflex: Large size, codominant vessel giving rise to 2 large obtuse marginals before terminating as a partial LPDA. There are minor luminal irregularities.
RCA: Normal size, codominant vessel that terminates as a partial RPDA. There are minor luminal irregularities.
INTERVENTIONS
1. Successful IFR of the 70% mid LAD lesion, demonstrating occlusive disease (IFR = 0.65).
2. Successful PCI of the 70% lesion, including the surrounding 30% plaque (overlapping Xience Skypoint 3.0 x 28 JANETTE, 3.25 x 8 JANETTE, postdilated with a 3.0 NC balloon) with reduction in stenoses to 0%, maintaining TOMY-3 flow.
Narrative:
The decision was made to perform physiologic testing. The diagnostic catheter was removed over a wire and exchanged for a(n) 6 Serbian EBU 4.0 guiding catheter. The guiding catheter was advanced into the ascending aorta and seated in the left main
coronary artery. Additional heparin was given to obtain an ACT greater than 250 seconds. An iFR wire was zeroed outside of the body, then inserted into the guiding sheath. The wire was advanced and the transducer was normalized just outside of the
guiding catheter tip. The wire was advanced into the distal LAD. Three iFR measurements were taken. The lesion was determined to be occlusive (0.65).
The decision was made to proceed with percutaneous coronary intervention. The Verrata wire was withdrawn and a Power Turn Flex wire was advanced into the distal LAD. The 70% mid LAD lesion was predilated with a 2.0 x 12 semi-compliant balloon to 12
osiel and a GuideLiner was advanced to assist with selective imaging of the LAD. The semi-compliant balloon was removed and a Xience Skypoint 3.0 x 28 drug-eluting stent was advanced. The stent was deployed at 12 atmospheres. The stent balloon was
removed. A 3.0 x 20 noncompliant balloon was advanced but would not cross into the body of the stent, likely due to catching on the edge of the stent as well as its overall rigidity. The NC balloon was withdrawn and a 3.0 x 12 noncompliant balloon
was advanced into the stent and the stent was postdilated to 14 atmospheres in the distal margin, 16 osiel in the mid and proximal margins.
Repeat angiography demonstrated an excellent stent expansion and apposition. I was concerned about a certain degree of pleating of the LAD at the proximal stent margin. The guide liner was advanced to this level for improved imaging. On passing
by the questionable segment, I noticed ventricularization of the pressure waveform, confirming that this was likely occlusive. The decision was made to extend the stented segment to cover this section. A Xience Skypoint 3.25 x 8 mm drug-eluting
stent was advanced. Meticulous care was taken while positioning the stent with the distal aspect overlapping with the first stent in the proximal aspect completely covering the pleated segment. The stent was deployed at 12 osiel. The stent balloon
was withdrawn.
Angiography was performed in orthogonal views, confirming good stent expansion and an excellent angiographic result. The coronary wire was withdrawn and the guide was disengaged from the artery. The catheter was removed over a standard J-wire.
Closure Device: Vascular band.
Radiation dose (mGy): 1501.16
DAP (cm2.Gy): 109.97
Fluoroscopy time (minutes): 14.6
Sedation time (minutes): 48
CONCLUSIONS:
1. Codominant circulation with a long, 30% mid LAD lesion culminating in an occlusive 70% lesion (IFR = 0.65), status post successful PCI of the entire lesion (overlapping Xience Skypoint 3.0 x 28 JANETTE, 3.25 x 8 JANETTE, postdilated with a 3.0 NC
balloon) with reduction in all stenoses to 0%, maintaining TOMY-3 flow.
2. Severely elevated filling pressures (LVEDP = 24 mmHg, PCWP = 25 mmHg at 134.3 kg).
3. Moderate pulmonary hypertension, WHO group 2.
RECOMMENDATIONS:
1. Expectant management after cardiac catheterization via right radial/right antecubital approach.
2. Limited weight bearing on the right wrist for one week.
3. Antiplatelet therapy with clopidogrel load 600 mg tomorrow morning (received ticagrelor in the [employer]). We will resume dabigatran for chronic atrial fibrillation.
4. Change furosemide to 80 mg IV daily.
5. Secondary prevention with high-dose, high potency statin.
6. Referral to cardiac rehab.
Copy to: Britt Shin M.D., Rajiv Pavon M.D.
Taqueria Wolf DO, FACC, FACP
[2023-06-20] MEDS: APRESOLINE 10 MG IV (13:43)
[2023-06-20] MEDS: LASIX 80 MG IV (13:44)
--- NOTE | 2023-06-20 13:56 | CM ---
Chart reviewed. Patient is independent of ADLS, lives at home alone in a [address] [facility], [facility], ambulates with a rolling walker at home. Patient with frequent falls at home. Await PT/OT evaluation. Patient is current with [facility]. Plan is for the patient
to return home with [facility] vs SNF. CM to follow
--- NOTE | 2023-06-20 14:21 | PTCARENOTE ---
received pt from [employer] [employer], right brachial is CDI, right radial ecchymotic, O2 99%. BP was 190/87, notified Dr. Wolf, hydralazine and lasix ordered. given as ordered. pt educated on plan of care and pt verbalized understanding. call corrigan within
reach.
--- NOTE | 2023-06-20 14:32 | W.PN.HOSP.TC ---
Today's Communication/Plan
-
Continue diuresis
PT/OT
Assessment / Plan
Assessment / Plan
Gen-AAOx3, NAD, morbid obesity
HEENT-NC, AT, anicteric, clear oral mm
Neck-supple
CV-reg, no M, +S1/S2
Lungs-clear B/L
Abd-soft, NT, ND
Ext-bilateral lower extremity lymphedema, Robert wraps
Musculoskeletal-no cyanosis, clubbing
Skin-warm and dry
Neuro-grossly non-focal
Psych-calm, cooperative
Acute on chronic heart failure preserved EF -continue diuresis. BNP 2610. Chest x-ray did not showing pulmonary edema. Patient underwent right and left heart catheterization today, results pending.
Chronic A.fib -resume Pradaxa when okay with cardiology.
CKD 3a -creatinine 1.4 today, will monitor.
Essential HTN - cont current anti-hypertensives and adjust meds according to BP
History of stroke
Bilateral lower extremity lymphedema -continue Robert wraps. Doppler ultrasound negative for DVT bilaterally.
COPD without exacerbation
Hyperlipidemia -continue atorvastatin.
Hypothyroidism -continue Synthroid.
BPH -continue finasteride, tamsulosin.
Morbid obesity due to excess calories
Full Code
Consult PT/OT
Anticipated Discharge: 24 - 48 hours
Subjective/Interval History
-
Date of Service: June 20, 2023
Patient seen and examined. Complaining of some shortness of breath after the catheterization.
Objective Data
-
Labs:
Laboratory Results
06/20/23
07:23
APTT 75.1 H
Sodium 140
Potassium 3.7
Chloride 106
Carbon Dioxide 27
BUN 32 H
Creatinine 1.4 H
Glucose 105 H
Calcium 8.2 L
Total Bilirubin 0.6
AST 16 L
ALT < 10
Alkaline Phosphatase 85
Vital Signs:
Vital Signs
Temp Pulse Resp BP Pulse Ox
97.5 F 57 24 169/80 99
06/20/23 13:00 06/20/23 13:44 06/20/23 13:00 06/20/23 13:44 06/20/23 13:00
I&O
06/19/23 06/20/23 06/21/23
06:59 06:59 06:59
Intake Total 870 / 870 30 / 30
Output Total 200 / 200 875 / 875 500 / 500
Balance -200 / -200 -5 / -5 -470 / -470
Review of Systems
-
History Source: Patient
All other systems: Reviewed and negative
[2023-06-20 15:01] LABS: ACT-LR - POC > 397 Seconds (116-155)
[2023-06-20 15:01] LABS: ACT-LR - POC > 397 Seconds (116-155)
[2023-06-20] MEDS: LIPITOR 40 MG PO (17:19)
--- NOTE | 2023-06-20 19:03 | PTCARENOTE ---
pt continued to be Afib on the monitor, HR in the 70s. VSS. pt complains of SOB intermittently, takes deep breaths and then his HR drops to 31 (AF), have him on 2L NC with pulse ox of 99%. His BP was high so dr. bryant ordered Lasix and hydralazine.
brachial is bleeding a bit, little edematous and radial is a little ecchymotic. dressing changed. pt denies pain at both sites. pt educated on plan of care and pt verbalized understanding. call corrigan within reach.
[2023-06-20] MEDS: PRADAXA 150 MG PO (20:14)
--- NOTE | 2023-06-20 22:08 | PTCARENOTE ---
Pt received start of shift, HR A-fib 70s. R radial dressing CDI, surrounding area ecchymotic. R brachial dressing CDI, surrounding area ecchymotic. Reviewed activity instructions with pt in regards to cardiac cath, pt states understanding. Pt denies
any CP, worsening SOB, or lightheadedness/dizziness at this time. Informed to notify RN if any changes, call corrigan within reach.
[2023-06-20] MEDS: PROSCAR 5 MG PO (22:32)
[2023-06-20] MEDS: REMERON 15 MG PO (22:32)
[2023-06-20] MEDS: FLOMAX 0.400000000000000022 MG PO (22:32)
[2023-06-20] MEDS: PROZAC 40 MG PO (22:32)
[2023-06-21] VITALS (8 sets, daily range): BP systolic 137–155; BP diastolic 63–82; PULSE 83; O2SAT 95–96; BMI 42.4
[2023-06-21 03:28] LABS: Hematocrit 34.4 % (39.0-52.0); Hemoglobin 11.7 g/dL (13.0-18.0); Mean Corpuscular Hgb 30.9 pg (27.0-31.0); Mean Corpuscular Volume 90.8 fL (80.0-94.0); Mean Platelet Volume 9.9 fL (7.4-10.4); Platelet Count 179 10^3/uL (130-400); Red Blood Cell Count 3.79 10^6/uL (4.70-6.10); Red Cell Dist. Width 14.4 % (11.5-14.5); White Blood Cell Count 7.5 10^3/uL (4.8-10.8)
[2023-06-21 03:47] LABS: Blood Urea Nitrogen 30 mg/dl (9-20); Calcium 7.9 mg/dl (8.4-10.2); Carbon Dioxide 26 mmol/L (22-30); Chloride 111 mmol/L (98-107); Estimated Creatinine Clearance 59 ml/min; Glucose 96 mg/dl (70-99); HDL Cholesterol 31 mg/dl; LDL Cholesterol, Calculated 65 mg/dl; Potassium 3.8 mmol/L (3.5-5.1); Sodium 140 mmol/L (135-145); Total Cholesterol 119 mg/dl (50-199); Triglyceride 119 mg/dl (10-149); Very Low Density Lipoprotein 23 mg/dl (0-30); eGFR 54.51
--- NOTE | 2023-06-21 07:54 | W.PN.HOSP.TC ---
Today's Communication/Plan
-
Diuresis
PT/OT
Assessment / Plan
Assessment / Plan
Gen-AAOx3, NAD, morbid obesity
HEENT-NC, AT, anicteric, clear oral mm
Neck-supple
CV-reg, no M, +S1/S2
Lungs-clear B/L
Abd-soft, NT, ND
Ext-bilateral lower extremity lymphedema, Robert wraps
Musculoskeletal-no cyanosis, clubbing
Skin-warm and dry
Neuro-grossly non-focal
Psych-calm, cooperative
Unstable angina -left heart catheterization performed 06/20, revealing 30% mid LAD lesion culminating in an occlusive 70% lesion. Treated with PCI and overlapping drug-eluting stents. Continue antiplatelet therapy per cardiology.
Acute on chronic heart failure preserved EF -continue diuresis. BNP 2610. Chest x-ray did not showing pulmonary edema. Right heart catheterization showed high pulmonary capillary wedge pressure. Continue IV Lasix.
Chronic A.fib -continue Pradaxa.
CKD 3a -creatinine stable at 1.3 today.
Essential HTN - cont current anti-hypertensives and adjust meds according to BP
History of stroke
Bilateral lower extremity lymphedema -continue Robert wraps. Doppler ultrasound negative for DVT bilaterally.
COPD without exacerbation
Hyperlipidemia -continue atorvastatin.
Hypothyroidism -continue Synthroid.
BPH -continue finasteride, tamsulosin.
Morbid obesity due to excess calories
Full Code
Consult PT/OT
Anticipated Discharge: > 48 hours
Subjective/Interval History
-
Date of Service: June 21, 2023
Patient seen and examined. No complaints. Denies chest pain or shortness of breath. Slept well.
Objective Data
-
Labs:
Laboratory Results
06/21/23
03:12
WBC 7.5
Hgb 11.7 L
Hct 34.4 L
Plt Count 179
Sodium 140
Potassium 3.8
Chloride 111 H
Carbon Dioxide 26
BUN 30 H
Creatinine 1.3
Glucose 96
Calcium 7.9 L
Vital Signs:
Vital Signs
Temp Pulse Resp BP Pulse Ox
98 F 73 20 141/74 95
06/21/23 02:59 06/21/23 03:15 06/21/23 02:59 06/21/23 02:59 06/21/23 02:59
I&O
06/20/23 06/21/23 06/22/23
06:59 06:59 06:59
Intake Total 870 / 870 990 / 990
Output Total 875 / 875 3250 / 3250
Balance -5 / -5 -2260 / -2260
Review of Systems
-
History Source: Patient
All other systems: Reviewed and negative
[2023-06-21] MEDS: SYNTHROID 112 MCG PO (08:10)
[2023-06-21] MEDS: PRADAXA 150 MG PO ×2 (08:12→20:26)
[2023-06-21] MEDS: FOLVITE 1 MG PO (08:13)
[2023-06-21] MEDS: ASPIR LOW (ENTERIC COATED) 81 MG PO (08:13)
[2023-06-21] MEDS: APRESOLINE 25 MG PO ×3 (08:13→22:51)
[2023-06-21] MEDS: DESENEX/MITRAZOL/ZEASORB 1 APPLIC TOPICAL ×2 (08:14→20:26)
[2023-06-21] MEDS: LASIX 80 MG IV (08:14)
[2023-06-21] MEDS: STRIVERDI RESPIMAT 2 PUFF INH (08:24)
[2023-06-21] MEDS: SPIRIVA RESPIMAT 2.5 MCG 2 PUFF INH (08:25)
[2023-06-21] MEDS: PLAVIX 600 MG PO (08:33)
--- NOTE | 2023-06-21 09:00 | PTCARENOTE ---
Assumed care of pt from night RN. Pt received awake and alert, Ox3. VSs, CM shows AF 70's, POX 97% on 2l nc. Pt assisted into chair with minimal assist. Robert wraps intact to both lower legs. Pt denies any pain or discomfort. # 25 cc intact
draining clear yellow urine.
[2023-06-21] MEDS: THERAGRAN 1 TABLET PO (09:40)
--- NOTE | 2023-06-21 10:50 | W.PN.CD ---
Today's Communication / Plan
-
Daily weights.
Start lisinopril 5 mg daily.
Start dapagliflozin 10 mg daily.
Case management consult for pricing.
Colchicine 0.3 mg PRN for ankle pain (gout vs. CPPD)
Impression / Plan
-
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
Emergency Department with complaints of shortness of breath.
#Unstable Angina/CAD
-New diagnosis.
-Cardiac catheterization showed a severe, iFR positive 70% mLAD lesion, s/p successful PCI (overlapping Xience Skypoint 3.0 x 28 JANETTE, 3.25 x 8 JANETTE) with reduction in stenosis to 0%, maintaining TOMY III flow.
-Antithrombotic therapy with clopidogrel (load this morning) and dabigatran.
-Continue secondary prevention with high dose, high potency statin. Goal LDL < 55.
#Acute on chronic HFpEF
-Weight is up. No new weight this morning.
-LVEDP 24 at catheterization. Furosemide changed from 40 mg IV BID to 80 mg IV daily.
-Not currently on ACEI/ARB/ARNi (normal EF).
-He would benefit from SGLT2i. Start dapagliflozin 10 mg daily. Case management consult.
-Daily weights.
#Chronic Atrial Fibrillation
-Rates controlled on metoprolol.
-[id number]: score 6 (Heart failure, HTN, age 75 or more, prior Stroke/TIA).
-Oral Anticoagulation: resume�dabigatran 150 mg BID after cardiac catheterization.
#HTN
-Urgency resolved.
-BP's remain elevated.
-Hydralazine increased to 25 mg TID from home dose (10 mg TID).
-Start lisinopril 5 mg daily. Monitor renal function.
#CKD3a
-Baseline creatinine 1.3-1.6.
-Stable at 1.3.
-Starting lisinopril 5 mg for HTN, renal protection.
-Monitor with addition of ACEI and SGLT2i.
#Ankle pain/crystalline arthropathy
-Gout vs. CPPD.
-Start colchicine 0.3 mg daily PRN. Monitor with renal dysfunction.
-No role for allopurinol as this can acutely worsen gout flair.
#Prior CVA
-Chronic.
-Carotid Duplex shows < 50% bilateral stenoses.
#Obesity, morbid - BMI 42
#Chronic Lymphedema - add MEGAN wraps
Subjective/Interval History:
Successful PCI of obstructive mLAD lesion yesterday.
LVEDP = 24 mmHg at cath. Furosemide changed to 80 mg IV daily.
He reports sitting in the chair and ambulating to the door with significant improvement in his MELGOZA.
He also reports some ankle pain and is concerned that his gout is about to flair.
DATA:
TTE, 04/25/23: �
�Normal left ventricular size and systolic function without regional wall motion
�abnormality.
�Cannot comment on right ventricular size, but function appears normal.
PASP 46mmHG, IVC normal
�Compared to previous echo 06/28/2022, the prior study used Definity images. The
�pulmonary pressure has decreased from 55mmHg on the prior study.� The right
�ventricle now appears normal in function.
Cardiac Catheterization/PCI, 06/20/2023:
CONCLUSIONS:
1.� Codominant circulation with a long, 30% mid LAD lesion culminating in an occlusive 70% lesion (IFR = 0.65), status post successful PCI of the entire lesion (overlapping Xience Skypoint 3.0 x 28 JANETTE, 3.25 x 8 JANETTE, postdilated with a 3.0 NC
balloon) with reduction in all stenoses to 0%, maintaining TOMY-3 flow.
2.� Severely elevated filling pressures (LVEDP = 24 mmHg, PCWP = 25 mmHg at 134.3 kg).
3.� Moderate pulmonary hypertension, WHO group 2.
Physical Exam
Vital Signs/Labs
Vital Signs
Temp Pulse Resp BP Pulse Ox
36.7 C 91 18 151/82 97
06/21/23 08:03 06/21/23 09:00 06/21/23 08:34 06/21/23 08:13 06/21/23 08:57
06/19/23 06/20/23 06/21/23
11:59 11:59 11:59
Actual Weight 132.477 kg 134.263 kg
06/21/23 03:12
06/21/23 03:12
APTT 75.1 Sec (23.4-35.0) H 06/20/23 07:23
Magnesium 2.5 mg/dl (1.6-2.3) H 06/20/23 07:23
Triglycerides 119 mg/dl (10-149) 06/21/23 03:12
LDL Cholesterol, Calc 65 mg/dl 06/21/23 03:12
VLDL Cholesterol, Calc 23 mg/dl (0-30) 06/21/23 03:12
HDL Cholesterol 31 mg/dl 06/21/23 03:12
06/19/23
00:41
Pjl-I-Zccflirnysp Pept 2610
LAB Results
06/19/23 06/19/23 06/19/23
00:41 06:29 11:37
Troponin I < 0.012 < 0.012 < 0.012
Physical Exam
Constitutional: No acute distress and Comfortable
EENT: Anicteric and Moist mucous membranes
Cardiovascular: Rhythm/rate is irregular, Pedal edema present, S1S2 is normal and Murmur/rub/gallop absent
Respiratory: Respiratory effort normal, Lungs clear to auscul., Wheeze Absent, Crackles Absent and Rhonchi Absent
GI: Soft, Distention absent, Flat, Non tender and Normal bowel sounds
Neuro/Psych: AO x 3
Other: Cath Site (Right radial/antecubital access site is C/D/I.)
Data Reviewed
-
Date of Service: June 21, 2023
Medical Decision Making: Reviewed Test Results, Independent Historian Assessment and Test Interpretation
EKG: Tracing Personally Visualized and interpreted and Report Reviewed by me
Echo: Tracing Personally Visualized and interpreted and Report Reviewed by me
X-Ray/CT/US/MRI/NUC/PET: Image Personally Visualized and interpreted and Report Reviewed by me
Medical Tests (PFT, Pathology etc): Image Personally Visualized and interpreted and Report Reviewed by me
Labs: Labs Reviewed by me
[2023-06-21] MEDS: FARXIGA 10 MG PO (11:12)
[2023-06-21] MEDS: ZESTRIL 5 MG PO (11:12)
[2023-06-21] MEDS: COLCHICINE 0.299999999999999989 MG PO (13:10)
--- NOTE | 2023-06-21 13:19 | PTCARENOTE ---
Colchicine 3 mg po given as per JUL for gout.
--- NOTE | 2023-06-21 15:59 | CM ---
Chart reviewed. Patient is independent of ADLS, lives at home alone in a [address], 2 [facility], ambulates with a rolling walker. Patient is current with [facility]. PT/OT recommending SNF vs Home PT. I will follow up with nursing and the patient as far as
plan of care.
[2023-06-21] MEDS: LIPITOR 40 MG PO (17:59)
[2023-06-21] MEDS: PROZAC 40 MG PO (22:51)
[2023-06-21] MEDS: REMERON 15 MG PO (22:51)
[2023-06-21] MEDS: FLOMAX 0.400000000000000022 MG PO (22:51)
[2023-06-21] MEDS: PROSCAR 5 MG PO (22:51)
--- NOTE | 2023-06-21 23:42 | PTCARENOTE ---
Assumed care of pt at [facility], HR A-fib 60s-80s. Pt appears much more awake and active than previous night. Pt sitting on side of bed without difficulty. Pt states they feel 'much better'. Pt denies any CP, SOB, or lightheadedness/dizziness
at this time. Informed to notify RN if any changes, call corrigan within reach.
[2023-06-22] VITALS (7 sets, daily range): BP systolic 118–150; BP diastolic 53–65; BMI 42.2
[2023-06-22] MEDS: SYNTHROID 112 MCG PO (06:36)
[2023-06-22] MEDS: SPIRIVA RESPIMAT 2.5 MCG 2 PUFF INH (08:36)
[2023-06-22] MEDS: STRIVERDI RESPIMAT 2 PUFF INH (08:36)
[2023-06-22] MEDS: ULTRAM 50 MG PO ×2 (08:47→18:16)
[2023-06-22] MEDS: FARXIGA 10 MG PO (08:49)
[2023-06-22] MEDS: PRADAXA 150 MG PO ×2 (08:50→20:20)
[2023-06-22] MEDS: ZESTRIL 5 MG PO (08:50)
[2023-06-22] MEDS: ASPIR LOW (ENTERIC COATED) 81 MG PO (08:50)
[2023-06-22] MEDS: APRESOLINE 25 MG PO ×3 (08:50→22:53)
[2023-06-22] MEDS: DESENEX/MITRAZOL/ZEASORB 1 APPLIC TOPICAL ×2 (08:51→20:17)
[2023-06-22] MEDS: PLAVIX 75 MG PO (08:51)
[2023-06-22] MEDS: ZAROXOLYN 5 MG PO (08:56)
--- NOTE | 2023-06-22 09:22 | W.PN.CD ---
Today's Communication / Plan
-
add metolazone 5mg x1
hold lisinopril until see cr
Impression / Plan
-
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
Emergency Department with complaints of shortness of breath.
#Unstable Angina/CAD
-New diagnosis.
-chest pain resolved
-Cardiac catheterization showed a severe, iFR positive 70% mLAD lesion, s/p successful PCI (overlapping Xience Skypoint 3.0 x 28 JANETTE, 3.25 x 8 JANETTE) with reduction in stenosis to 0%, maintaining TOMY III flow.
-Antithrombotic therapy with clopidogrel (load this morning) and dabigatran.
-Continue secondary prevention with high dose, high potency statin. Goal LDL < 55.
#Acute on chronic HFpEF
-Weight is up. and slowly declining
-LVEDP 24 at catheterization wt 134.3kg.
-Continue furosemide 80IV bid. Will add a single dose of metolazone (use with caution in the past has lead to Hyponatremia for him)
-Not currently on ACEI/ARB/ARNi (normal EF).
-He would benefit from SGLT2i. Start dapagliflozin 10 mg daily. Case management consult.
-Daily weights.
#Chronic Atrial Fibrillation
-Rates controlled on metoprolol.
-[id number]: score 6 (Heart failure, HTN, age 75 or more, prior Stroke/TIA).
-Oral Anticoagulation: resume�dabigatran 150 mg BID after cardiac catheterization.
#HTN
-Urgency resolved.
-BP's remain elevated.
-Hydralazine increased to 25 mg TID from home dose (10 mg TID).
-Dr Wolf Started lisinopril 5 mg daily. Monitor renal function.---given the need for more diuresis, farxiga, recent contrast and colchicine will hold tomorrow's dose until cr seen.
#CKD3a
-Baseline creatinine 1.3-1.6.
-Stable at 1.3. monitor with agents
-Consider lisinopril 5 mg for HTN, renal protection when diuresis complete
-Monitor with addition of ACEI and SGLT2i.
#Ankle pain/crystalline arthropathy
-Gout vs. CPPD.
-Start colchicine 0.3 mg daily PRN. Monitor with renal dysfunction.
-No role for allopurinol as this can acutely worsen gout flair.
#Prior CVA
-Chronic.
-Carotid Duplex shows < 50% bilateral stenoses.
#Obesity, morbid - BMI 42
#Chronic Lymphedema - add MEGAN wraps
Subjective/Interval History:
Back is hurting which is a chronic intermittent issue, but sob and cp resolved.
DATA:
TTE, 04/25/23: �
�Normal left ventricular size and systolic function without regional wall motion
�abnormality.
�Cannot comment on right ventricular size, but function appears normal.
PASP 46mmHG, IVC normal
�Compared to previous echo 06/28/2022, the prior study used Definity images. The
�pulmonary pressure has decreased from 55mmHg on the prior study.� The right
�ventricle now appears normal in function.
Cardiac Catheterization/PCI, 06/20/2023:
CONCLUSIONS:
1.� Codominant circulation with a long, 30% mid LAD lesion culminating in an occlusive 70% lesion (IFR = 0.65), status post successful PCI of the entire lesion (overlapping Xience Skypoint 3.0 x 28 JANETTE, 3.25 x 8 JANETTE, postdilated with a 3.0 NC
balloon) with reduction in all stenoses to 0%, maintaining TOMY-3 flow.
2.� Severely elevated filling pressures (LVEDP = 24 mmHg, PCWP = 25 mmHg at 134.3 kg).
3.� Moderate pulmonary hypertension, WHO group 2.
Physical Exam
Vital Signs/Labs
Vital Signs
Temp Pulse Resp BP Pulse Ox
97.8 F 73 20 142/63 95
06/22/23 07:13 06/22/23 08:56 06/22/23 07:13 06/22/23 08:56 06/22/23 07:13
06/21/23 06/22/23 06/23/23
06:59 06:59 06:59
Actual Weight 134 kg 133.3 kg
06/21/23 03:12
06/21/23 03:12
APTT 75.1 Sec (23.4-35.0) H 06/20/23 07:23
Magnesium 2.5 mg/dl (1.6-2.3) H 06/20/23 07:23
Triglycerides 119 mg/dl (10-149) 06/21/23 03:12
LDL Cholesterol, Calc 65 mg/dl 06/21/23 03:12
VLDL Cholesterol, Calc 23 mg/dl (0-30) 06/21/23 03:12
HDL Cholesterol 31 mg/dl 06/21/23 03:12
06/19/23
00:41
Rkt-Y-Zplpxzreecp Pept 2610
LAB Results
06/19/23
11:37
Troponin I < 0.012
Physical Exam
Constitutional: No acute distress
Cardiovascular: Systolic murmur absent, Diastolic murmur absent and Pedal edema present (soft with megan wraps on )
Respiratory: Respiratory effort normal, Lungs clear to auscul., Wheeze Absent, Crackles Absent and Rhonchi Absent
Neuro/Psych: AO x 3
Data Reviewed
-
Date of Service: June 22, 2023
EKG: Other (fib rate controlled)
Medical Tests (PFT, Pathology etc): Discussed with Physician (Dr Pena, will watch cr with all the renal insults )
--- NOTE | 2023-06-22 09:40 | W.PN.HOSP.TC ---
Today's Communication/Plan
-
Continue with IV Lasix
Assessment / Plan
Assessment / Plan
Unstable angina -left heart catheterization performed 06/20, revealing 30% mid LAD lesion culminating in an occlusive 70% lesion. Treated with PCI and overlapping drug-eluting stents. Continue antiplatelet therapy per cardiology. Asymptomatic
without further chest pain.
Acute on chronic heart failure preserved EF -continue diuresis. BNP 2610. Chest x-ray did not showing pulmonary edema. Right heart catheterization showed high pulmonary capillary wedge pressure. Continue IV Lasix. Follow weights daily.
Chronic A.fib -continue Pradaxa. Rate controlled
CKD 3a -creatinine stable at 1.3
Essential HTN - cont current anti-hypertensives and adjust meds according to BP
History of stroke
Bilateral lower extremity lymphedema -continue Robert wraps. Doppler ultrasound negative for DVT bilaterally.
COPD without exacerbation
Hyperlipidemia -continue atorvastatin.
Hypothyroidism -continue Synthroid.
BPH -continue finasteride, tamsulosin.
Morbid obesity due to excess calories
Full Code
Consult PT/OT
Anticipated Discharge: 24 - 48 hours
Subjective/Interval History
-
Date of Service: June 22, 2023
No chest pain or shortness of breath. Weight is higher than his baseline ; normally 280s.
He has a chronic back pain which is acting up because of being in bed.
Objective Data
-
Vital Signs:
Vital Signs
Temp Pulse Resp BP Pulse Ox
97.8 F 73 20 142/63 95
06/22/23 07:13 06/22/23 08:56 06/22/23 07:13 06/22/23 08:56 06/22/23 07:13
I&O
06/21/23 06/22/23 06/23/23
06:59 06:59 06:59
Intake Total 990 / 990
Output Total 3250 / 3250 1170 / 1170 120 / 120
Balance -2260 / -2260 -1170 / -1170 -120 / -120
Review of Systems
-
Constitutional: Denies Fever
EENT: Denies Sore Throat
Respiratory: Denies Cough
Abdomen/GI: Denies Abdominal Pain, Nausea or Vomiting
Neuro: Denies Dizzy
Physical Exam
-
General: No Apparent Distress
HEENT: Moist Mucous Membranes
Respiratory: Clear to Auscultation
Cardiac: S1/S2 and Irregular Rhythm; Negative Tachycardic
GI: Soft
Musculoskeletal: Other (Both legs in Robert wrap)
Neuro: AO x 3
Psych: Calm
Data Reviewed
-
Labs: Labs Reviewed by me
[2023-06-22] MEDS: LASIX 80 MG IV (09:59)
--- NOTE | 2023-06-22 11:30 | CM ---
Addendum entered by Sabina Quezada RN 06/22/23 14:59:
Agricultural Chemist thought the patient appeared still weak and would benefit from Skilled Rehab. I was able to convince the patient to go to Skilled Rehab. Patient is agreeable to go to [facility]. Referrals sent to [facility] and [facility]. [facility] will have a bed available on Sunday. Plan is for the patient to go to Skilled Rehab. CM to follow
Original Note:
Chart reviewed. Patient is independent of ADLS, lives alone in a [facility], 2 [facility], ambulates with a rolling walker. PT/OT recommending Home PT vs SNF, patient refusing SNF saying he had a horrible experience in the past. Patient is current with
[facility]. Patient would like to return home with [facility]. CM to follow
[2023-06-22] MEDS: LIPITOR 40 MG PO (18:12)
[2023-06-22] MEDS: FLUSH (NSS) 1 FLUSH IV (20:21)
--- NOTE | 2023-06-22 22:17 | PTCARENOTE ---
Received patient at change of shift this PM. AAOx3. VSS. He is A-Fib on the monitor with occasional PVCs. HR in the 60s-70s. INT patent. Right antecubital site appears ANGEL and clean, dry, and intact. Right radial site dressing is clean, dry, and
intact. No bleeding. Right upper extremity is very ecchymotic and purple. Post-cath restrictions and guidelines reviewed. He denies chest pain or discomfort at this time. Plan of care discussed. He is receptive to teaching and motivated. We
discussed his medications and he has no further questions about these at this time. He denies pain and appears comfortable in bed. Will continue to monitor.
[2023-06-22] MEDS: FLOMAX 0.400000000000000022 MG PO (22:52)
[2023-06-22] MEDS: PROZAC 40 MG PO (22:53)
[2023-06-22] MEDS: PROSCAR 5 MG PO (22:53)
[2023-06-22] MEDS: REMERON 15 MG PO (22:53)
[2023-06-23 04:12] VITALS: BP 137/59
[2023-06-23 04:40] LABS: Hematocrit 33.8 % (39.0-52.0); Hemoglobin 11.1 g/dL (13.0-18.0); Mean Corp Hgb Conc. 32.8 g/dL (33.0-37.0); Mean Corpuscular Hgb 30.4 pg (27.0-31.0); Mean Corpuscular Volume 92.6 fL (80.0-94.0); Mean Platelet Volume 9.8 fL (7.4-10.4); Platelet Count 180 10^3/uL (130-400); Red Blood Cell Count 3.65 10^6/uL (4.70-6.10); Red Cell Dist. Width 14.2 % (11.5-14.5); White Blood Cell Count 8.5 10^3/uL (4.8-10.8)
[2023-06-23] MEDS: SYNTHROID 112 MCG PO (04:41)
[2023-06-23] MEDS: COLCHICINE 0.299999999999999989 MG PO (04:41)
[2023-06-23 04:44] VITALS: BMI 42.1
[2023-06-23 05:04] LABS: Blood Urea Nitrogen 40 mg/dl (9-20); Calcium 8.2 mg/dl (8.4-10.2); Carbon Dioxide 29 mmol/L (22-30); Chloride 100 mmol/L (98-107); Estimated Creatinine Clearance 43 ml/min; Glucose 113 mg/dl (70-99); Potassium 3.4 mmol/L (3.5-5.1); Sodium 138 mmol/L (135-145); eGFR 36.89
--- NOTE | 2023-06-23 07:36 | W.PN.CD ---
Today's Communication / Plan
-
increase lasix to bid
hold lisinopril and farxiga
Impression / Plan
-
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
Emergency Department with complaints of shortness of breath.
#Unstable Angina/CAD
-New diagnosis.
-chest pain resolved
-Cardiac catheterization showed a severe, iFR positive 70% mLAD lesion, s/p successful PCI (overlapping Xience Skypoint 3.0 x 28 JANETTE, 3.25 x 8 JANETTE) with reduction in stenosis to 0%, maintaining TOMY III flow.
-Antithrombotic therapy with clopidogrel (load this morning) and dabigatran.
-Continue secondary prevention with high dose, high potency statin. Goal LDL < 55.
#Acute on chronic HFpEF
-Weight slowly declining
-LVEDP 24 at catheterization wt 134.3kg.
-Increase furosemide 80IV to bid. Will hold further metolzaone
-intensive monitoring of lytes and renal function
-potassium added.
-Not currently on ACEI/ARB/ARNi (normal EF).
-He would benefit from SGLT2i. Start dapagliflozin 10 mg daily on discharge if affordable Case management consult.
-Daily weights.
#Chronic Atrial Fibrillation
-Rates controlled on metoprolol.
-[id number]: score 6 (Heart failure, HTN, age 75 or more, prior Stroke/TIA).
-Oral Anticoagulation: resume�dabigatran 150 mg BID after cardiac catheterization.
#HTN
-Urgency resolved.
-BP's remain elevated.
-Hydralazine increased to 25 mg TID from home dose (10 mg TID).
-Dr Wolf Started lisinopril 5 mg daily. Monitor renal function.---given the need for more diuresis, farxiga, recent contrast and colchicine will hold tomorrow's dose until cr seen.
#CKD3a
-Baseline creatinine 1.3-1.6.--up to 1.8 but in the setting of farxiga, lisinopril, contrast exposure and diuresis
-hold lisinopril and farxiga
-will still need diuresis
-Consider lisinopril 5 mg for HTN, renal protection when diuresis complete
#Ankle pain/crystalline arthropathy
-Gout vs. CPPD.
-Start colchicine 0.3 mg daily PRN. Monitor with renal dysfunction.
-No role for allopurinol as this can acutely worsen gout flair.
#Prior CVA
-Chronic.
-Carotid Duplex shows < 50% bilateral stenoses.
#Obesity, morbid - BMI 42
#Chronic Lymphedema -continue MEGAN wraps
Subjective/Interval History:
He is feeling much better, sob improving. back pain improved
DATA:
TTE, 04/25/23: �
�Normal left ventricular size and systolic function without regional wall motion
�abnormality.
�Cannot comment on right ventricular size, but function appears normal.
PASP 46mmHG, IVC normal
�Compared to previous echo 06/28/2022, the prior study used Definity images. The
�pulmonary pressure has decreased from 55mmHg on the prior study.� The right
�ventricle now appears normal in function.
Cardiac Catheterization/PCI, 06/20/2023:
CONCLUSIONS:
1.� Codominant circulation with a long, 30% mid LAD lesion culminating in an occlusive 70% lesion (IFR = 0.65), status post successful PCI of the entire lesion (overlapping Xience Skypoint 3.0 x 28 JANETTE, 3.25 x 8 JANETTE, postdilated with a 3.0 NC
balloon) with reduction in all stenoses to 0%, maintaining TOMY-3 flow.
2.� Severely elevated filling pressures (LVEDP = 24 mmHg, PCWP = 25 mmHg at 134.3 kg).
3.� Moderate pulmonary hypertension, WHO group 2.
Physical Exam
Vital Signs/Labs
Vital Signs
Temp Pulse Resp BP Pulse Ox
97.6 F 74 18 137/59 95
06/23/23 04:12 06/23/23 04:30 06/23/23 04:12 06/23/23 04:12 06/23/23 04:12
06/22/23 06/23/23 06/24/23
06:59 06:59 06:59
Actual Weight 133.3 kg 133 kg
06/23/23 04:21
06/23/23 04:21
APTT 75.1 Sec (23.4-35.0) H 06/20/23 07:23
Magnesium 2.5 mg/dl (1.6-2.3) H 06/20/23 07:23
Triglycerides 119 mg/dl (10-149) 06/21/23 03:12
LDL Cholesterol, Calc 65 mg/dl 06/21/23 03:12
VLDL Cholesterol, Calc 23 mg/dl (0-30) 06/21/23 03:12
HDL Cholesterol 31 mg/dl 06/21/23 03:12
06/19/23
00:41
Jtb-K-Ocjkairoxmy Pept 2610
Physical Exam
Constitutional: No acute distress
Cardiovascular: Systolic murmur absent, Diastolic murmur absent, Rhythm/rate is irregular and Pedal edema present (1-2+ pitting and nonpitting)
Respiratory: Respiratory effort normal, Lungs clear to auscul., Wheeze Absent, Crackles Absent and Rhonchi Absent
Neuro/Psych: AO x 3
Data Reviewed
-
Date of Service: June 23, 2023
X-Ray/CT/US/MRI/NUC/PET: Discussed with Physician (holding farxiga and acei, increase lasix to bid) and Discussed with Nurse (lasix bid today)
[2023-06-23] MEDS: STRIVERDI RESPIMAT 2 PUFF INH (07:48)
[2023-06-23] MEDS: SPIRIVA RESPIMAT 2.5 MCG 2 PUFF INH (07:48)
[2023-06-23 07:55] VITALS: BP 137/68
[2023-06-23] MEDS: APRESOLINE 25 MG PO ×3 (08:27→22:38)
[2023-06-23] MEDS: KCL 40 MEQ PO (08:27)
[2023-06-23] MEDS: ASPIR LOW (ENTERIC COATED) 81 MG PO (08:27)
[2023-06-23] MEDS: ULTRAM 50 MG PO ×2 (08:28→23:25)
[2023-06-23] MEDS: DESENEX/MITRAZOL/ZEASORB 1 APPLIC TOPICAL ×2 (08:28→19:51)
[2023-06-23] MEDS: PLAVIX 75 MG PO (08:28)
[2023-06-23] MEDS: PRADAXA 150 MG PO ×2 (08:28→19:52)
[2023-06-23] MEDS: FOLVITE 1 MG PO (08:28)
[2023-06-23] MEDS: FLUSH (NSS) 2 FLUSH IV ×2 (08:29→09:25)
[2023-06-23] MEDS: LASIX IV (08:29)
--- NOTE | 2023-06-23 08:43 | W.PN.HOSP.TC ---
Today's Communication/Plan
-
Continue diuresis per cardiology
Repeat creatinine in a.m.
Follow weights daily
Assessment / Plan
Assessment / Plan
Unstable angina -left heart catheterization performed 06/20, revealing 30% mid LAD lesion culminating in an occlusive 70% lesion. Treated with PCI and overlapping drug-eluting stents. Continue antiplatelet therapy per cardiology. Asymptomatic
without further chest pain.
Acute on chronic heart failure preserved EF -continue diuresis. BNP 2610. Chest x-ray without pulmonary edema. Right heart catheterization showed high pulmonary capillary wedge pressure. Follow weights daily-293 pounds like yesterday. Rising
creatinine noted. Discussed with cardiology today who recommends to continue Lasix but no more metolazone ,Farxiga or lisinopril.
Chronic A.fib -continue Pradaxa. Rate controlled
ZA on CKD 3a -baseline creatinine at 1.3
Elevated creatinine up to 1.8 today noted. Suspect probably medication related. He also had cath with the dye.
Continue to follow creatinine-ROBERT inhibitors, Farxiga on hold. No more metolazone.
Diuretics per cardiology
Essential HTN - cont current anti-hypertensives and adjust meds according to BP
History of stroke
Bilateral lower extremity lymphedema -continue Robert wraps. Doppler ultrasound negative for DVT bilaterally.
COPD without exacerbation
Hyperlipidemia -continue atorvastatin.
Hypothyroidism -continue Synthroid.
BPH -continue finasteride, tamsulosin.
Morbid obesity due to excess calories
Full Code
Anticipated Discharge: 24 - 48 hours
Subjective/Interval History
-
Date of Service: June 23, 2023
Feeling improved from breathing standpoint. Off of oxygen.
No chest pain.
Objective Data
-
Labs:
Laboratory Results
06/23/23
04:21
WBC 8.5
Hgb 11.1 L
Hct 33.8 L
Plt Count 180
Sodium 138
Potassium 3.4 L
Chloride 100
Carbon Dioxide 29
BUN 40 H
Creatinine 1.8 H
Glucose 113 H
Calcium 8.2 L
Vital Signs:
Vital Signs
Temp Pulse Resp BP Pulse Ox
97.4 F 76 16 137/68 91
06/23/23 07:53 06/23/23 08:00 06/23/23 07:54 06/23/23 07:55 06/23/23 07:54
I&O
06/22/23 06/23/23 06/24/23
06:59 06:59 06:59
Intake Total 500 / 500
Output Total 1170 / 1170 1170 / 1170
Balance -1170 / -1170 -670 / -670
Review of Systems
-
Constitutional: Denies Fever
EENT: Denies Sore Throat
Respiratory: Denies Cough
Abdomen/GI: Denies Abdominal Pain, Nausea or Vomiting
Neuro: Denies Dizzy
Physical Exam
-
General: No Apparent Distress
HEENT: Moist Mucous Membranes
Respiratory: Clear to Auscultation and Non Labored Respirations; Negative Accessory Resp Muscle Use
Cardiac: S1/S2 and Irregular Rhythm; Negative Tachycardic
Musculoskeletal: Edema, Right Lower Extrem (1+ bilateral) and Edema, Left Lower Extrem
Neuro: AO x 3
Psych: Calm
Data Reviewed
-
Labs: Labs Reviewed by me
[2023-06-23] MEDS: LASIX 80 MG IV ×2 (09:25→17:06)
--- NOTE | 2023-06-23 11:12 | PTCARENOTE ---
Received patient this morning resting in bed. Plan for SNF by Sunday. Patient seen by cardiology and ok to continue scheduled IV lasix. Lower extremities remain edematous, eleuterio wraps applied.
[2023-06-23 11:23] VITALS: BP 161/80
[2023-06-23 15:40] VITALS: BP 137/65
[2023-06-23] MEDS: LIPITOR 40 MG PO (17:06)
[2023-06-23 19:27] VITALS: BP 160/68
[2023-06-23] MEDS: FLUSH (NSS) 1 FLUSH IV (19:52)
--- NOTE | 2023-06-23 21:14 | PTCARENOTE ---
Received patient at change of shift this PM. AAOx3. VSS. He is A-Fib on the monitor with occasional PVCs. HR in the 60s-80s. INT patent. Right antecubital and radial sites appear [employer] and clean, dry, and intact. He denies chest pain or discomfort.
Plan of care discussed. He is receptive to teaching and motivated. He understands that he is weakened at this time and needs assistance with ambulation. He is agreeable to SNF and understands to use his call corrigan for assistance with ambulation. We
discussed his medications at this time and he has no further questions. He appears comfortable in bed. Will continue to monitor.
[2023-06-23 22:37] VITALS: BP 121/57
[2023-06-23] MEDS: FLOMAX 0.400000000000000022 MG PO (22:38)
[2023-06-23] MEDS: PROSCAR 5 MG PO (22:38)
[2023-06-23] MEDS: REMERON 15 MG PO (22:40)
[2023-06-23] MEDS: PROZAC 40 MG PO (22:40)
[2023-06-24] VITALS (8 sets, daily range): BP systolic 129–152; BP diastolic 50–71; PULSE 77; BMI 41.3
[2023-06-24 03:28] LABS: Blood Urea Nitrogen 42 mg/dl (9-20); Carbon Dioxide 30 mmol/L (22-30); Chloride 100 mmol/L (98-107); Estimated Creatinine Clearance 43 ml/min; Glucose 113 mg/dl (70-99); Potassium 3.3 mmol/L (3.5-5.1); Sodium 137 mmol/L (135-145); eGFR 36.89
[2023-06-24] MEDS: KCL 40 MEQ PO (03:42)
[2023-06-24] MEDS: SYNTHROID 112 MCG PO (06:09)
[2023-06-24] MEDS: ULTRAM 50 MG PO ×3 (07:31→22:39)
[2023-06-24] MEDS: STRIVERDI RESPIMAT 2 PUFF INH (07:51)
[2023-06-24] MEDS: SPIRIVA RESPIMAT 2.5 MCG 2 PUFF INH (07:51)
[2023-06-24] MEDS: ASPIR LOW (ENTERIC COATED) 81 MG PO (09:15)
[2023-06-24] MEDS: APRESOLINE 25 MG PO ×3 (09:15→22:37)
[2023-06-24] MEDS: PLAVIX 75 MG PO (09:16)
[2023-06-24] MEDS: DESENEX/MITRAZOL/ZEASORB 1 APPLIC TOPICAL ×2 (09:16→19:29)
[2023-06-24] MEDS: LASIX 80 MG IV ×2 (09:16→15:29)
[2023-06-24] MEDS: PRADAXA 150 MG PO ×2 (09:16→19:28)
[2023-06-24] MEDS: FLUSH (NSS) 2 FLUSH IV (09:17)
--- NOTE | 2023-06-24 09:40 | W.PN.HOSP.TC ---
Today's Communication/Plan
-
Continue with diuretics. Replete potassium. Follow creatinine.
Assessment / Plan
Assessment / Plan
Unstable angina -left heart catheterization performed 06/20, revealing 30% mid LAD lesion culminating in an occlusive 70% lesion. Treated with PCI and overlapping drug-eluting stents. Continue antiplatelet therapy per cardiology. Asymptomatic
without further chest pain.
Acute on chronic heart failure preserved EF -continue diuresis. BNP 2610. Chest x-ray without pulmonary edema. Right heart catheterization showed high pulmonary capillary wedge pressure. Follow weights daily-293 pounds -await today's wt.
Rising creatinine noted. continue Lasix but holding metolazone ,Farxiga or lisinopril.
Chronic A.fib -continue Pradaxa. Rate controlled
ZA on CKD 3a -baseline creatinine at 1.3
Elevated creatinine up to 1.8 today noted. Suspect probably medication related. He also had cath with the dye.
Continue to follow creatinine-ROBERT inhibitors, Farxiga on hold. No more metolazone.
Diuretics per cardiology
Hypokalemia -replete
Essential HTN - cont current anti-hypertensives and adjust meds according to BP
History of stroke
Bilateral lower extremity lymphedema -continue Robert wraps. Doppler ultrasound negative for DVT bilaterally.
COPD without exacerbation
Hyperlipidemia -continue atorvastatin.
Hypothyroidism -continue Synthroid.
BPH -continue finasteride, tamsulosin.
Morbid obesity due to excess calories
Full Code
Anticipated Discharge: 24 - 48 hours
Subjective/Interval History
-
Date of Service: June 24, 2023
Couldnt get into gear and sleep last night . He hardly got any sleep. He is feeling little short of breath today. No chest pain. No angina. No cough. No nausea vomiting.
Objective Data
-
Labs:
Laboratory Results
06/24/23
02:44
Sodium 137
Potassium 3.3 L
Chloride 100
Carbon Dioxide 30
BUN 42 H
Creatinine 1.8 H
Glucose 113 H
Calcium 8.0 L
Vital Signs:
Vital Signs
Temp Pulse Resp BP Pulse Ox
97.8 F 72 15 129/55 95
06/24/23 06:59 06/24/23 07:55 06/24/23 07:55 06/24/23 07:03 06/24/23 07:55
I&O
06/23/23 06/24/23 06/25/23
06:59 06:59 06:59
Intake Total 500 / 500 1080 / 1080
Output Total 1170 / 1170 2800 / 2800
Balance -670 / -670 -1720 / -1720
Review of Systems
-
Constitutional: Denies Fever or Chills
EENT: Denies Sore Throat
Respiratory: Denies Cough
Abdomen/GI: Denies Abdominal Pain, Nausea or Vomiting
Neuro: Denies Dizzy
Physical Exam
-
General: No Apparent Distress
HEENT: Moist Mucous Membranes
Respiratory: Clear to Auscultation; Negative Wheezes or Crackles
Cardiac: Regular Rhythm and S1/S2
GI: Soft
Neuro: AO x 3
Psych: Calm; Negative Confused
Data Reviewed
-
Labs: Labs Reviewed by me
[2023-06-24] MEDS: COLCHICINE 0.299999999999999989 MG PO (09:50)
--- NOTE | 2023-06-24 10:49 | PTCARENOTE ---
Received patient this morning complained of insomnia last night, was up most of the night. States this does happen at home too. Complaining of lower back pain and medicated with tramadol as ordered. Also having gout type discomfort in the right
ankle and given prn colchicine. Required assist of two to stand at the bedside to obtain daily weight.
[2023-06-24] MEDS: FLUSH (NSS) 1 FLUSH IV (15:29)
--- NOTE | 2023-06-24 16:31 | W.PN.CD ---
Today's Communication / Plan
-
continue iv diuresis with intensive monitoring of lyte, renal function and bp
d/c planning
Impression / Plan
-
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
Emergency Department with complaints of shortness of breath.
#Unstable Angina/CAD
-New diagnosis.
-chest pain resolved
-Cardiac catheterization showed a severe, iFR positive 70% mLAD lesion, s/p successful PCI (overlapping Xience Skypoint 3.0 x 28 JANETTE, 3.25 x 8 JANETTE) with reduction in stenosis to 0%, maintaining TOMY III flow.
-Antithrombotic therapy with clopidogrel (load this morning) and dabigatran.
-Continue secondary prevention with high dose, high potency statin. Goal LDL < 55.
#Acute on chronic HFpEF
-Weight finally declinings now 130.7 from 135 on admission
-LVEDP 24 at catheterization wt 134.3kg.
-Increase furosemide 80IV to bid. Will hold further metolzaone
-intensive monitoring of lytes and renal function
-potassium added.
-Not currently on ACEI/ARB/ARNi (normal EF).
-He would benefit from SGLT2i. Start dapagliflozin 10 mg daily on discharge if affordable Case management consult.
-Daily weights.
#Chronic Atrial Fibrillation
-Rates controlled on metoprolol.
-[id number]: score 6 (Heart failure, HTN, age 75 or more, prior Stroke/TIA).
-Oral Anticoagulation: continue dabigatran 150 mg BID
#HTN
-Urgency resolved.
-BP's improved continue current medications
-Hydralazine increased to 25 mg TID from home dose (10 mg TID).
-Dr Wolf Started lisinopril 5 mg daily. Monitor renal function.---given the need for more diuresis, farxiga, recent contrast and colchicine will hold tomorrow's dose until cr seen.
#CKD3a
-Baseline creatinine 1.3-1.6.--up to 1.8 but in the setting of farxiga, lisinopril, contrast exposure and diuresis
-hold lisinopril and farxiga
-stable with diuresis
-Consider lisinopril 5 mg for HTN, renal protection when diuresis complete and renal function improved
#Ankle pain/crystalline arthropathy
-Gout vs. CPPD.
-Start colchicine 0.3 mg daily PRN. Monitor with renal dysfunction.
-No role for allopurinol as this can acutely worsen gout flair.
#Prior CVA
-Chronic.
-Carotid Duplex shows < 50% bilateral stenoses.
#Obesity, morbid - BMI 42
#Chronic Lymphedema -continue MEGAN wraps
Subjective/Interval History:
He is feeling much better, sob improving. back pain improved, he is planning to go to rehab
DATA:
TTE, 04/25/23: �
�Normal left ventricular size and systolic function without regional wall motion
�abnormality.
�Cannot comment on right ventricular size, but function appears normal.
PASP 46mmHG, IVC normal
�Compared to previous echo 06/28/2022, the prior study used Definity images. The
�pulmonary pressure has decreased from 55mmHg on the prior study.� The right
�ventricle now appears normal in function.
Cardiac Catheterization/PCI, 06/20/2023:
CONCLUSIONS:
1.� Codominant circulation with a long, 30% mid LAD lesion culminating in an occlusive 70% lesion (IFR = 0.65), status post successful PCI of the entire lesion (overlapping Xience Skypoint 3.0 x 28 JANETTE, 3.25 x 8 JANETTE, postdilated with a 3.0 NC
balloon) with reduction in all stenoses to 0%, maintaining TOMY-3 flow.
2.� Severely elevated filling pressures (LVEDP = 24 mmHg, PCWP = 25 mmHg at 134.3 kg).
3.� Moderate pulmonary hypertension, WHO group 2.
Physical Exam
Vital Signs/Labs
Vital Signs
Temp Pulse Resp BP Pulse Ox
97.8 F 81 20 131/67 95
06/24/23 15:43 06/24/23 15:45 06/24/23 15:43 06/24/23 15:32 06/24/23 15:43
06/23/23 06/24/23 06/25/23
06:59 06:59 06:59
Actual Weight 133 kg 130.7 kg
06/23/23 04:21
06/24/23 02:44
APTT 75.1 Sec (23.4-35.0) H 06/20/23 07:23
Magnesium 2.5 mg/dl (1.6-2.3) H 06/20/23 07:23
Triglycerides 119 mg/dl (10-149) 06/21/23 03:12
LDL Cholesterol, Calc 65 mg/dl 06/21/23 03:12
VLDL Cholesterol, Calc 23 mg/dl (0-30) 06/21/23 03:12
HDL Cholesterol 31 mg/dl 06/21/23 03:12
06/19/23
00:41
Pbe-P-Bdqsruvvbhx Pept 2610
Physical Exam
Constitutional: No acute distress
Cardiovascular: Rhythm & rate is regular, JVD pressure is normal, Systolic murmur absent, Diastolic murmur absent and JVD present (2+ b/l)
Respiratory: Respiratory effort normal, Lungs clear to auscul., Wheeze Absent, Crackles Absent and Rhonchi Absent
Neuro/Psych: AO x 3
Data Reviewed
-
Date of Service: June 24, 2023
EKG: Other (tele fib with rate control)
[2023-06-24] MEDS: LIPITOR 40 MG PO (17:41)
[2023-06-24] MEDS: PROSCAR 5 MG PO (22:36)
[2023-06-24] MEDS: REMERON 15 MG PO (22:36)
[2023-06-24] MEDS: PROZAC 40 MG PO (22:36)
[2023-06-24] MEDS: FLOMAX 0.400000000000000022 MG PO (22:37)
--- NOTE | 2023-06-25 01:27 | PTCARENOTE ---
Lower extremity edema remains but much improved per patient. Took ultram for back pain with relief. Sleeping at present. Remains in A-fib on the monitor in the 70's.
[2023-06-25 04:42] VITALS: BP 133/67
[2023-06-25] MEDS: SYNTHROID 112 MCG PO (05:06)
[2023-06-25 05:18] LABS: Hematocrit 33.6 % (39.0-52.0); Hemoglobin 11.1 g/dL (13.0-18.0); Mean Corpuscular Hgb 30.9 pg (27.0-31.0); Mean Corpuscular Volume 93.6 fL (80.0-94.0); Mean Platelet Volume 10.1 fL (7.4-10.4); Platelet Count 194 10^3/uL (130-400); Red Blood Cell Count 3.59 10^6/uL (4.70-6.10); Red Cell Dist. Width 13.6 % (11.5-14.5); White Blood Cell Count 10.3 10^3/uL (4.8-10.8)
[2023-06-25 06:17] LABS: Blood Urea Nitrogen 51 mg/dl (9-20); Calcium 8.1 mg/dl (8.4-10.2); Carbon Dioxide 31 mmol/L (22-30); Chloride 93 mmol/L (98-107); Estimated Creatinine Clearance 42 ml/min; Glucose 118 mg/dl (70-99); Potassium 3.4 mmol/L (3.5-5.1); Sodium 135 mmol/L (135-145); eGFR 36.89
[2023-06-25 06:48] VITALS: BP 141/60
[2023-06-25] MEDS: STRIVERDI RESPIMAT 2 PUFF INH (07:26)
[2023-06-25] MEDS: SPIRIVA RESPIMAT 2.5 MCG 2 PUFF INH (07:26)
--- NOTE | 2023-06-25 09:30 | W.PN.CD ---
Today's Communication / Plan
-
transition to torsemide 40 mg BID
daily weights
compression to legs daily
repeat renal function in 7 days
ok to discharge to rehab
will arrange office follow up for 4-6 weeks
I will sign off
Impression / Plan
-
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
Emergency Department with complaints of shortness of breath.
#Unstable Angina/CAD
-New diagnosis.
-chest pain resolved
-Cardiac catheterization showed a severe, iFR positive 70% mLAD lesion, s/p successful PCI (overlapping Xience Skypoint 3.0 x 28 JANETTE, 3.25 x 8 JANETTE) with reduction in stenosis to 0%, maintaining TOMY III flow.
-Antithrombotic therapy with clopidogrel (load this morning) and dabigatran.
-Continue secondary prevention with high dose, high potency statin. Goal LDL < 55.
#Acute on chronic HFpEF
-Weight finally declinings now 129.8 from 135 on admission
-lets call this 'dry'.
-LVEDP 24 at catheterization wt 134.3kg.
-Transition to torsemide 40mg bid
-Would recommend Renal panel in 7days.
-Not currently on ACEI/ARB/ARNi/SGLT2i due to renal function, can consider as an outpatient.
-Need DAILY WEIGHTS
#Chronic Atrial Fibrillation
-Rates controlled on metoprolol.
-[id number]: score 6 (Heart failure, HTN, age 75 or more, prior Stroke/TIA).
-Oral Anticoagulation: continue dabigatran 150 mg BID
#HTN
-Urgency resolved.
-BP's improved continue current medications
-Hydralazine increased to 25 mg TID from home dose (10 mg TID).
#CKD3a
-Baseline creatinine 1.3-1.6.--up to 1.8 but in the setting of farxiga, lisinopril, contrast exposure and diuresis
-hold lisinopril and farxiga
-stable with diuresis
--Would recommend Renal panel in 7days.
#Ankle pain/crystalline arthropathy
-Gout vs. CPPD.
-Start colchicine 0.3 mg daily PRN. Monitor with renal dysfunction.
-No role for allopurinol as this can acutely worsen gout flair.
#Prior CVA
-Chronic.
-Carotid Duplex shows < 50% bilateral stenoses.
#Obesity, morbid - BMI 42
#Chronic Lymphedema -continue MEGAN wraps
Subjective/Interval History:
He is feeling much better, sob improving
DATA:
TTE, 04/25/23: �
�Normal left ventricular size and systolic function without regional wall motion
�abnormality.
�Cannot comment on right ventricular size, but function appears normal.
PASP 46mmHG, IVC normal
�Compared to previous echo 06/28/2022, the prior study used Definity images. The
�pulmonary pressure has decreased from 55mmHg on the prior study.� The right
�ventricle now appears normal in function.
Cardiac Catheterization/PCI, 06/20/2023:
CONCLUSIONS:
1.� Codominant circulation with a long, 30% mid LAD lesion culminating in an occlusive 70% lesion (IFR = 0.65), status post successful PCI of the entire lesion (overlapping Xience Skypoint 3.0 x 28 JANETTE, 3.25 x 8 JANETTE, postdilated with a 3.0 NC
balloon) with reduction in all stenoses to 0%, maintaining TOMY-3 flow.
2.� Severely elevated filling pressures (LVEDP = 24 mmHg, PCWP = 25 mmHg at 134.3 kg).
3.� Moderate pulmonary hypertension, WHO group 2.
Physical Exam
Vital Signs/Labs
Vital Signs
Temp Pulse Resp BP Pulse Ox
98.3 F 71 16 141/60 90
06/25/23 06:53 06/25/23 07:29 06/25/23 07:29 06/25/23 06:48 06/25/23 07:29
06/24/23 06/25/23 06/26/23
06:59 06:59 06:59
Actual Weight 130.7 kg
06/25/23 04:57
06/25/23 04:57
APTT 75.1 Sec (23.4-35.0) H 06/20/23 07:23
Magnesium 2.5 mg/dl (1.6-2.3) H 06/20/23 07:23
Triglycerides 119 mg/dl (10-149) 06/21/23 03:12
LDL Cholesterol, Calc 65 mg/dl 06/21/23 03:12
VLDL Cholesterol, Calc 23 mg/dl (0-30) 06/21/23 03:12
HDL Cholesterol 31 mg/dl 06/21/23 03:12
06/19/23
00:41
Cfw-I-Wteqxiynaxm Pept 2610
Physical Exam
Constitutional: No acute distress
Cardiovascular: JVD pressure is normal, Systolic murmur absent, Diastolic murmur absent, Rhythm/rate is irregular and Pedal edema present (trace to 1 + pitting)
Respiratory: Respiratory effort normal, Lungs clear to auscul., Wheeze Absent, Crackles Absent and Rhonchi Absent
Neuro/Psych: AO x 3
Data Reviewed
-
Date of Service: June 25, 2023
EKG: Other (tele afib and pvc)
--- NOTE | 2023-06-25 09:38 | W.PN.HOSP.TC ---
Today's Communication/Plan
-
DC planning
Assessment / Plan
Assessment / Plan
Unstable angina -left heart catheterization performed 06/20, revealing 30% mid LAD lesion culminating in an occlusive 70% lesion. Treated with PCI and overlapping drug-eluting stents. Continue antiplatelet therapy per cardiology. Asymptomatic
without further chest pain.
Acute on chronic heart failure preserved EF -continue diuresis. BNP 2610. Chest x-ray without pulmonary edema. Right heart catheterization showed high pulmonary capillary wedge pressure. Follow weights daily-288 pounds . creatinine at 1.8 .
continue Lasix but holding metolazone ,Farxiga or lisinopril.
Chronic A.fib -continue Pradaxa. Rate controlled
ZA on CKD 3a -baseline creatinine at 1.3
Elevated creatinine up to 1.8 today noted. Suspect probably medication related. He also had cath with the dye.
Continue to follow creatinine-ROBERT inhibitors, Farxiga on hold. No more metolazone.
Diuretics per cardiology
Hypokalemia -replete
Essential HTN - cont current anti-hypertensives and adjust meds according to BP
History of stroke
Bilateral lower extremity lymphedema -continue Robert wraps. Doppler ultrasound negative for DVT bilaterally.
Gout with flare - improved left ankle pain ;tocday with right ankle and forefoot pain -cw colchicine prn daily
COPD without exacerbation
Hyperlipidemia -continue atorvastatin.
Hypothyroidism -continue Synthroid.
BPH -continue finasteride, tamsulosin.
Morbid obesity due to excess calories
Full Code
If ok with cardiology standpoint will discharge to rehab today
Anticipated Discharge: Today
Subjective/Interval History
-
Date of Service: June 25, 2023
Improved weight. Improved breathing.
Slept well last night.
He had left ankle pain and today right ankle pain. Colchicine helping. He has prior history of gout.
Objective Data
-
Labs:
Laboratory Results
06/25/23
04:57
WBC 10.3
Hgb 11.1 L
Hct 33.6 L
Plt Count 194
Sodium 135
Potassium 3.4 L
Chloride 93 L
Carbon Dioxide 31 H
BUN 51 H
Creatinine 1.8 H
Glucose 118 H
Calcium 8.1 L
Vital Signs:
Vital Signs
Temp Pulse Resp BP Pulse Ox
98.3 F 71 16 141/60 90
06/25/23 06:53 06/25/23 07:29 06/25/23 07:29 06/25/23 06:48 06/25/23 07:29
I&O
06/24/23 06/25/23 06/26/23
06:59 06:59 06:59
Intake Total 1080 / 1080 1080 / 1080
Output Total 2800 / 2800 2700 / 2700
Balance -1720 / -1720 -1620 / -1620
Review of Systems
-
Constitutional: Denies Fever
EENT: Denies Sore Throat
Respiratory: Denies Cough
Cardiac: Denies Chest Pain
Abdomen/GI: Denies Nausea or Vomiting
Musculoskeletal: Reports Joint Pain (left ankle and foot)
Neuro: Denies Dizzy
Physical Exam
-
General: No Apparent Distress
HEENT: Moist Mucous Membranes
Respiratory: Clear to Auscultation
Cardiac: Regular Rhythm and S1/S2
GI: Soft
Musculoskeletal: Edema, Right Lower Extrem, Edema, Left Lower Extrem and Other (rt ankle join tenderness and as well rt forefoot medially as well)
Neuro: AO x 3
Psych: Calm; Negative Confused
Data Reviewed
-
Labs: Labs Reviewed by me
[2023-06-25 09:43] VITALS: BMI 41.1
[2023-06-25] MEDS: COLCHICINE 0.299999999999999989 MG PO (09:44)
[2023-06-25] MEDS: PRADAXA 150 MG PO (09:45)
[2023-06-25] MEDS: PLAVIX 75 MG PO (09:45)
[2023-06-25] MEDS: APRESOLINE 25 MG PO ×2 (09:45→15:52)
[2023-06-25] MEDS: FOLVITE 1 MG PO (09:46)
[2023-06-25] MEDS: DESENEX/MITRAZOL/ZEASORB 1 APPLIC TOPICAL (09:46)
[2023-06-25] MEDS: ASPIR LOW (ENTERIC COATED) 81 MG PO (09:46)
[2023-06-25] MEDS: LASIX IV (09:57)
[2023-06-25] MEDS: DEMADEX 40 MG PO (09:58)
[2023-06-25] MEDS: FLUSH (NSS) 1 FLUSH IV (09:59)
--- NOTE | 2023-06-25 10:37 | PTCARENOTE ---
Received patient this morning resting in bed. Had a better night's sleep last night. Patient seen by cardiology, weight down 1 kg and IV lasix changed back to patient's usual PO demadex. Patient does not want to get oob yet. Medicated for gout
discomfort with PO colchicine. Bilateral eleuterio wraps applied for compression.
[2023-06-25 11:18] VITALS: BP 144/65
--- NOTE | 2023-06-25 12:20 | W.DS.TRANS ---
DC Summary - [employer]
-
Discharge Instructions:
Discharge Diagnosis/Procedures Unstable angina-Angioplasty with stent to LAD;
acute on chronic heart failure with preserved EF
; chronic atrial fibrillation; chronic kidney
disease stage IIIa; acute gout of the ankles
Diet Low Cholesterol,2 Gram Sodium
Activity As tolerated
Driving Restrictions As prior to admission
Blood Work BMP in one week
Other Services Cardiac Rehab,PT,OT
Specialty Instructions Weigh Daily
Instructions: *[facility] Heart Failure Instructions
Stand-Alone Forms: DC Instructions- Cath/EP Lab
Changes to Home Medications: Yes
Discharge Medications:
DC Medications w/original date entered in [employer]
atorvastatin 40 mg tablet 40 mg PO QPM High cholesterol 01/19/20
dabigatran etexilate 150 mg capsule (Pradaxa) 150 mg PO BID Blood clot prevention/tx 01/19/20
finasteride 5 mg tablet 5 mg PO HS Urinary issue 04/07/20
metoprolol tartrate 25 mg tablet 25 mg PO BID Blood pressure 04/07/20
tamsulosin 0.4 mg capsule 0.4 mg PO HS Urinary issue 04/07/20
levothyroxine 112 mcg tablet 112 mcg PO DAILY Thyroid 07/21/21
fluoxetine 40 mg capsule (Prozac) 40 mg PO HS Mental Health/Anxiety 11/02/21
albuterol sulfate 90 mcg/actuation aerosol inhaler (ProAir HFA) 2 inh inhalation R BIDPRN PRN SOB 06/27/22
folic acid 1 mg tablet 1 mg PO DAILY Supplement 06/19/23
potassium chloride 20 mEq oral packet (Klor-Con) 20 meq PO BID@0800,1600 Supplement 06/19/23
torsemide 20 mg tablet 40 mg PO BID@0800,1600 Fluid Retention/Swelling 06/19/23
clopidogrel 75 mg tablet 75 mg PO DAILY #1 tab 06/25/23
colchicine 0.6 mg tablet 0.3 mg PO DAILY PRN ankle pain #1 tab 06/25/23
hydralazine 25 mg tablet 25 mg PO TID #1 tab 06/25/23
mirtazapine 15 mg tablet 15 mg PO HS #1 tab 06/25/23
multivitamin with folic acid 400 mcg tablet (Tab-A-Rikki) 1 tab PO TuTh@0800 #1 tab 06/25/23
olodaterol 2.5 mcg/actuation mist for inhalation (Striverdi Respimat) 2.5 mcg inhalation R DAILY #4 grams 06/25/23
tramadol 50 mg tablet 50 mg PO Q6HPRN PRN moderate pain #10 tabs 06/25/23
Home Medication Changes
Discontinue medication-aspirin
New medication-Plavix, colchicine as needed, tramadol as needed
Change medication-hydralazine dose increased, mirtazapine dose decreased
Pending Results: No
[2023-06-25] MEDS: ULTRAM 50 MG PO (13:18)
[2023-06-25] MEDS: FLUZONE HIGH-DOSE QUAD 2023-24 0.699999999999999956 ML IM (13:23)
[2023-06-25] MEDS: PREVNAR 20 0.5 ML IM (13:25)
--- NOTE | 2023-06-25 13:29 | W.HF.CON ---
Heart Failure
- LV Function
Left ventricular function study result: LV Ejection fraction >40% (ECHO 04/25/23)
Ejection Fraction Percentage: 55-60
- ARNI
Patient already on ARNI: No
Heart Failure ARNI Not Indicated: LV Ejection Fraction >/= 40%
- ACEI/ARB
Patient already on ACEI/ARB: No
Heart Failure ACEI/ARB Not Indicated: LV Ejection Fraction > 40%
- Beta Billy
Patient already on Evidence Based Beta Billy: No
Heart Failure Evidence Based Beta Billy Not Indicated: LV Ejection Fraction > 40%
- Mineralocorticord Receptor Antagonist
Patient already on MRA: No
Heart Failure MRA Not Indicated: LV Ejection Fraction > 40%
- SGLT-2 Inhibitor
Patient already on SGLT-2 Inhibitor: No
Heart Failure SGLT-2 Inhibitor Not Indicated: LV Ejection Fraction >40%
- Afib Anticoagulation
Patient already on Anticoagulation for Afib: Yes
- NYHA CHF Classification
NYHA CHF Classification Level: Class III - Symptoms w/ min exertion, interferes w/ nml daily activity
- ACC/AHA Stage
ACC/AHA Stage: Stage C: Symptomatic Heart Failure
--- NOTE | 2023-06-25 15:02 | CM ---
bed avail at [facility], transportation via [employer]. pt called in payment.
[2023-06-25] MEDS: KCL 20 MEQ PO (15:52)
--- NOTE | 2023-06-25 17:59 | PTCARENOTE ---
Report called to Emilio Black, patient ate an early dinner and transferred via wheelchair van with his belongings.
--- NOTE | 2023-06-26 07:39 | W.DCSUMMARY ---
Discharge Summary
Discharge Data
Date of Admission: 06/19/23
Date of Discharge: 06/26/23
-
Pending Results: No
Hospital Course
Primary diagnosis:
Unstable angina status post left anterior descending artery stenting
Acute on chronic heart failure with preserved EF
Acute kidney injury on chronic kidney disease stage IIIa
Secondary diagnosis:
Essential hypertension
Chronic atrial fibrillation
History of stroke
Chronic obstructive pulmonary disease.
Hyperlipidemia
Hypothyroidism
Benign prostatic hypertension
Hospital course:
Patient presented with shortness of breath and intermittent chest pains. Clinical concern for unstable angina and heart failure. Troponins peaked to 0.1 only. Given the multiple risk factors it was felt reasonable to assess his coronary anatomy
and filling pressures and went on to have left and right heart catheterization which showed mid LAD 70% stenosis for which she had successful PCI (overlapping Xience Skypoint 3.0 x 28 JANETTE, 3.25 x 8 JANETTE). He was initiated on Plavix with loading.
Continued on Pradaxa for his A-fib. Aspirin was discontinued.
He was also discovered to be in acute on chronic heart failure with preserved EF. His LVEDP was 24 at weight 134.3 kg. He was initiated on diuretics higher dose. His weight came down from 297 pounds to 286 pounds at the time of discharge. He
also did get a dose of metolazone. Post catheter was initiated on Pradaxa ,MEGAN inhibitors which was discontinued as his creatinine bumped from 1.3-1.8 which plateaued holding this medication. On discharge no ARB/MEGAN inhibitor/Farxiga was
prescribed. He used to follow with cardiology next week to readdress goal-directed medical therapy for his cardiac disease.
He was also advised to get a repeat BMP in a week.
Consultants on board:
Cardiology-Dr. Shin
Discharge Plan
-
Patient Disposition: Prison/SNF
Discharge Diagnosis/Procedures: Unstable angina-Angioplasty with stent to LAD; acute on chronic heart failure with preserved EF; chronic atrial fibrillation; chronic kidney disease stage IIIa; acute gout of the ankles
Diet: Low Cholesterol and 2 Gram Sodium
Activity: As tolerated
Driving Restrictions: As prior to admission
Blood Work: BMP in one week
Other Services: PT, OT and Cardiac Rehab
Specialty Instructions: Weigh Daily- Call MD for wt gain/loss 3 lbs overnight/5 lbs in 1 week
Instructions: *CBC Heart Failure Instructions
Stand Alone Forms: DC Instructions- Cath/EP Lab
Referrals:
[facility] [Outside] - 07/26/23 1:00 pm
(Cardiac Rehab Orientation appointment is on 07/26/2023 at 1 PM.
The Cardiac Rehab gym is located on the first floor of the [facility].)
[facility] [Outside]
Gisela Blackwell NP [Specified Professional Personl] - 07/04/23 9:40 am (Cardiology followup appointment)
Rajiv Pavon MD [Family Provider] -
Prescriptions:
New
hydralazine 25 mg Tablet
25 mg PO TID Qty: 1 0RF
mirtazapine 15 mg Tablet
15 mg PO HS Qty: 1 0RF
multivitamin with folic acid [Tab-A-Rikki] 400 mcg Tablet
1 tab PO TuTh@0800 Qty: 1 0RF
clopidogrel 75 mg Tablet
75 mg PO DAILY Qty: 1 0RF
colchicine 0.6 mg Tablet
0.3 mg PO DAILY PRN (Reason: ankle pain) Qty: 1 0RF
Striverdi Respimat 2.5 mcg/actuation Mist
2.5 mcg inhalation R DAILY Qty: 4 0RF
tramadol 50 mg Tablet
50 mg PO Q6HPRN PRN (Reason: moderate pain) Qty: 10 0RF
Continued
atorvastatin 40 MG tablet
40 mg PO QPM
dabigatran etexilate [Pradaxa] 150 MG capsule
150 mg PO BID
tamsulosin 0.4 MG capsule
0.4 mg PO HS
finasteride 5 MG tablet
5 mg PO HS
metoprolol tartrate 25 MG tablet
25 mg PO BID
levothyroxine 112 MCG tablet
112 mcg PO DAILY
fluoxetine [Prozac] 40 MG capsule
40 mg PO HS
albuterol sulfate [ProAir HFA] 90 mcg/actuation Hfa Aerosol Inhaler
2 inh INHALATION R BIDPRN PRN (Reason: SOB )
torsemide 20 mg tablet
40 mg PO BID@0800,1600
folic acid 1 mg Tablet
1 mg PO DAILY
potassium chloride [Klor-Con] 20 mEq packet
20 meq PO BID@0800,1600
Discontinued
aspirin 81 MG tablet,delayed release (DR/EC)
81 mg PO DAILY
hydralazine 10 mg Tablet
10 mg PO TID
mirtazapine 45 mg Tablet
45 mg PO HS
Discharge Orders:
Discharge Patient (As Directed); Ordered 06/25/23
Ordered By: Fransisco Pena
Care Plan Goals
Care Plan Goals:
Problem: Readiness for enhanced knowledge related to diagnosis and treatment plan
Goal: Understand your diagnosis and treatment plan needs, including medications if applicable.
Instructions: Know your diagnosis, underlying causes and treatment plan options, including medications if applicable. Consult with your health care team to learn about your diagnosis and treatment plan, including medications if applicable.
Discharge Date and Time
Discharge Date/Time: 06/25/23 18:02
== END 2023-06-25 18:02 | DRG 321 ==
LOC: IVU 10:06
PROVIDERS: Emergency Medicine; Hospitalist; Internal Medicine Cardiovascular Disease; Nurse Practitioner Adult Health; Nurse Practitioner Gerontology; ADMITTING PHYSICIAN Internal Medicine; ATTENDING PHYSICIAN Internal Medicine; EMERGENCY PHYSICIAN Emergency Medicine; FAMILY PHYSICIAN Internal Medicine; OTHER PHYSICIAN Internal Medicine Cardiovascular Disease
PROC: 4A033BC Measurement of Arterial Pressure, Coronary, Percutaneous Approach (ICD-10-PCS; 2023-06-20)
PROC: B2111ZZ Fluoroscopy of Multiple Coronary Arteries using Low Osmolar Contrast (ICD-10-PCS; 2023-06-20)
PROC: 4A023N8 Measurement of Cardiac Sampling and Pressure, Bilateral, Percutaneous Approach (ICD-10-PCS; 2023-06-20)
PROC: 027034Z Dilation of Coronary Artery, One Artery with Drug-eluting Intraluminal Device, Percutaneous Approach (ICD-10-PCS; 2023-06-20)
PROC: 3E02340 Introduction of Influenza Vaccine into Muscle, Percutaneous Approach (ICD-10-PCS; 2023-06-25)
DX: I13.0 Hypertensive heart and chronic kidney disease with heart failure and stage 1 through stage 4 chronic kidney disease, or unspecified chronic kidney disease (principal); I50.33 Acute on chronic diastolic (congestive) heart failure; I48.19 Other persistent atrial fibrillation; Z68.41 Body mass index [BMI] 40.0-44.9, adult; N17.9 Acute kidney failure, unspecified; I25.110 Atherosclerotic heart disease of native coronary artery with unstable angina pectoris; N18.31 Chronic kidney disease, stage 3a; R29.6 Repeated falls; I27.22 Pulmonary hypertension due to left heart disease; J44.9 Chronic obstructive pulmonary disease, unspecified; E03.9 Hypothyroidism, unspecified; D64.9 Anemia, unspecified; I16.0 Hypertensive urgency; E66.01 Morbid (severe) obesity due to excess calories; N40.0 Benign prostatic hyperplasia without lower urinary tract symptoms; E78.00 Pure hypercholesterolemia, unspecified; M10.9 Gout, unspecified; E87.6 Hypokalemia; I89.0 Lymphedema, not elsewhere classified; Z87.891 Personal history of nicotine dependence; Z98.1 Arthrodesis status; Z23 Encounter for immunization; Z79.82 Long term (current) use of aspirin; Z79.890 Hormone replacement therapy; Z79.52 Long term (current) use of systemic steroids; Z86.73 Personal history of transient ischemic attack (TIA), and cerebral infarction without residual deficits
CPT/HCPCS: 71046; 73564; 80048; 80053; 80061; 83735; 83880; 84443; 84484; 84550; 85025; 85027; 85347; 85652; 85730; 90662; 90677; 93005; 93460; 93571; 93970; 94640; 94760; 96374; 97162; 97167; 97530; 99285; C1725; C1769; C1874; C1887; C1894; C9600; G0008; G0009; Q9967

== ENCOUNTER → 2023-06-27 10:35 | Outpatient (REF) | payer OTHER, MEDICARE, SELFPAY ==
[2023-06-27 17:11] LABS: Blood Urea Nitrogen 59 mg/dl (9-20); Calcium 8.4 mg/dl (8.4-10.2); Carbon Dioxide 28 mmol/L (22-30); Chloride 97 mmol/L (98-107); Glucose 108 mg/dl (70-99); Potassium 3.5 mmol/L (3.5-5.1); Sodium 134 mmol/L (135-145); eGFR 32.51
== END ==
LOC: OLABP 10:35
PROVIDERS: ATTENDING PHYSICIAN Family Medicine
DX: I50.33 Acute on chronic diastolic (congestive) heart failure (principal); I48.91 Unspecified atrial fibrillation; N18.30 Chronic kidney disease, stage 3 unspecified; J44.9 Chronic obstructive pulmonary disease, unspecified; I11.0 Hypertensive heart disease with heart failure; Z86.73 Personal history of transient ischemic attack (TIA), and cerebral infarction without residual deficits
CPT/HCPCS: 80048

== ENCOUNTER → 2023-07-02 12:03 | Outpatient (REF) | payer OTHER, MEDICARE, SELFPAY ==
[2023-07-02 13:34] LABS: Blood Urea Nitrogen 44 mg/dl (9-20); Calcium 7.9 mg/dl (8.4-10.2); Carbon Dioxide 31 mmol/L (22-30); Chloride 104 mmol/L (98-107); Glucose 88 mg/dl (70-99); Potassium 3.5 mmol/L (3.5-5.1); Sodium 141 mmol/L (135-145); eGFR 45.91
== END ==
LOC: OLABP 12:03
PROVIDERS: ATTENDING PHYSICIAN Family Medicine
DX: I50.33 Acute on chronic diastolic (congestive) heart failure (principal); I48.91 Unspecified atrial fibrillation; N18.30 Chronic kidney disease, stage 3 unspecified; J44.9 Chronic obstructive pulmonary disease, unspecified; I11.0 Hypertensive heart disease with heart failure; Z86.73 Personal history of transient ischemic attack (TIA), and cerebral infarction without residual deficits
CPT/HCPCS: 36415; 80048

== ENCOUNTER → 2023-07-09 13:26 | Outpatient (REF) | payer OTHER, MEDICARE, SELFPAY ==
[2023-07-09 13:46] LABS: % Basophils 0.2 % (0-2); % Eosinophils 2.4 % (0-6); % Immature Granulocytes 0.4 % (0-0.5); % Lymphocytes 12.7 % (20.5-51.1); % Monocytes 8.3 % (1.7-9.3); Absolute Eosinophils 0.2 10^3/uL (0-0.7); Absolute Lymphocytes 1.1 10^3/uL (1.2-3.4); Absolute Monocytes 0.7 10^3/uL (0.1-0.6); Absolute Neutrophils 6.4 10^3/uL (1.4-6.5); Hematocrit 33.6 % (39.0-52.0); Hemoglobin 10.7 g/dL (13.0-18.0); Mean Corp Hgb Conc. 31.8 g/dL (33.0-37.0); Mean Corpuscular Hgb 30.2 pg (27.0-31.0); Mean Corpuscular Volume 94.9 fL (80.0-94.0); Mean Platelet Volume 10.1 fL (7.4-10.4); Nucleated Red Blood Cells % 0 % (-); Platelet Count 207 10^3/uL (130-400); Red Blood Cell Count 3.54 10^6/uL (4.70-6.10); Red Cell Dist. Width 14.2 % (11.5-14.5); White Blood Cell Count 8.4 10^3/uL (4.8-10.8)
[2023-07-09 13:54] LABS: Blood Urea Nitrogen 31 mg/dl (9-20); Calcium 7.6 mg/dl (8.4-10.2); Carbon Dioxide 29 mmol/L (22-30); Chloride 103 mmol/L (98-107); Glucose 87 mg/dl (70-99); Potassium 3.6 mmol/L (3.5-5.1); Sodium 143 mmol/L (135-145); eGFR 54.51
== END ==
LOC: OLABP 13:26
PROVIDERS: ATTENDING PHYSICIAN Family Medicine
DX: I50.33 Acute on chronic diastolic (congestive) heart failure (principal); I48.91 Unspecified atrial fibrillation; N18.30 Chronic kidney disease, stage 3 unspecified; J44.9 Chronic obstructive pulmonary disease, unspecified; I11.0 Hypertensive heart disease with heart failure; Z86.73 Personal history of transient ischemic attack (TIA), and cerebral infarction without residual deficits
CPT/HCPCS: 36415; 80048; 85025

== ENCOUNTER 2023-08-28 08:44 | Inpatient (IN) | payer MEDICARE, SELFPAY ==
[2023-08-28] VITALS (14 sets, daily range): BP systolic 125–151; BP diastolic 54–94; O2SAT 97; BMI 41.9; BMI 39.8
[2023-08-28 05:08] LABS: % Basophils 0.3 % (0-2); % Eosinophils 0.9 % (0-6); % Immature Granulocytes 0.5 % (0-0.5); % Lymphocytes 6.3 % (20.5-51.1); % Monocytes 7.7 % (1.7-9.3); % Neutrophils 84.3 % (42.2-75.2); Absolute Eosinophils 0.1 10^3/uL (0-0.7); Absolute Immature Granulocytes 0.1 10^3/uL (0-0.05); Absolute Lymphocytes 0.8 10^3/uL (1.2-3.4); Absolute Neutrophils 10.4 10^3/uL (1.4-6.5); Hematocrit 35.2 % (39.0-52.0); Hemoglobin 11.1 g/dL (13.0-18.0); Mean Corp Hgb Conc. 31.5 g/dL (33.0-37.0); Mean Corpuscular Hgb 30.7 pg (27.0-31.0); Mean Corpuscular Volume 97.2 fL (80.0-94.0); Mean Platelet Volume 9.5 fL (7.4-10.4); Nucleated Red Blood Cells % 0 % (-); Platelet Count 228 10^3/uL (130-400); Red Blood Cell Count 3.62 10^6/uL (4.70-6.10); Red Cell Dist. Width 14.1 % (11.5-14.5); White Blood Cell Count 12.3 10^3/uL (4.8-10.8)
[2023-08-28 05:17] LABS: Albumin 3.5 g/dl (3.5-5.0)
[2023-08-28 05:31] LABS: NT-proBNP 3730 pg/ml; Troponin I < 0.012 ng/ml
[2023-08-28 05:46] LABS: ALT (SGPT) 11 U/L (0-50); AST (SGOT) 17 U/L (17-59); Alkaline Phosphatase 85 U/L (38-126); Blood Urea Nitrogen 24 mg/dl (9-20); Calcium 8.1 mg/dl (8.4-10.2); Carbon Dioxide 23 mmol/L (22-30); Chloride 109 mmol/L (98-107); Estimated Creatinine Clearance 51 ml/min; Glucose 117 mg/dl (70-99); Potassium 3.6 mmol/L (3.5-5.1); Sodium 140 mmol/L (135-145); Total Bilirubin 0.5 mg/dl (0.2-1.3); Total Protein 6.2 g/dl (6.3-8.2); eGFR 45.91
--- NOTE | 2023-08-28 06:45 | ED.GENMED ---
History of Present Illness
General
Chief Complaint: Cardiac Symptoms
Source: patient and records
Exam Limitations: none
Time Seen by Provider: 08/28/23 06:36
Nursing documentation reviewed up to this point in time: agreed with
Travel History
Have you had any contact with someone who has COVID-19?: No
Do you have any symptoms of coronavirus? Fever > 100 degrees, chills, cough, shortness of breath, sore throat, loss of taste or smell, muscle aches, or headache?: No
History of Present Illness
History of Present Illness:
83-year-old male patient Dr. Lady Shin and congestive heart failure PAF CAD status post stenting on most recent admission few months ago by Dr. Wolf presents with a few days of fatigue cough weakness trouble with activities of daily living
shortness of breath believes he has been in A-fib send leg edema no changes weight that he knows of, possibly did not have his Lasix yesterday no fevers no hemoptysis. Is noted to be hypoxic placed on oxygen
Past History
Past History
ED Past Medical History: Arrthythmia (Paroxysmal atrial fibrillation), CAD, CHF, COPD, CVA, HTN, Hypercholesterolemia and Other (CKD)
ED Past Surgical History: Cardiac and Orthopedic (Resection of a thoracic spine lesion and spinal fusion)
Social History
Tobacco: Former smoker
Alcohol: None
Drug: None
Personal:
Living: alone
Employment: Retired
Family History
Family History: Other (Noncontributory)
Review of Systems
Review of Systems
All Other Systems: Not applicable
Constitutional: Reports fatigue
EENT: Reports no symptoms
Respiratory: Reports cough and trouble breathing
Cardiac: Reports palpitations (Feels like he is in A-fib); Denies chest pain, diaphoresis or syncope
ABD/GI: Reports no symptoms
: Reports no symptoms
Musculoskeletal: Reports edema
Skin: Reports no symptoms
Neurological: Reports weakness
Endocrine: Reports no symptoms
Phy Exam
Physical Exam
Physical Exam:
Physical Exam
General: Chronically ill-appearing male
Neck: Positive JVD
Heart: Irregular
Lungs: Bibasilar crackle
Abdomen: Not
Neuro: alert and oriented. no focal neurological deficits
Skin: no rash
Psychiatric: Disheveled cooperative
Extremities: Edema present
Scores
Heart Failure Risk
Heart Failure Risk Score: Yes
History of Stroke or TIA: No
History of intubation for respiratory distress: No
Heart rate on ED arrival >/= 110: No
SaO2 <90% on arrival on room air: Yes
HR >/=110 during 3min walk test (or too ill to perform test): Yes
ECG has acute ischemic changes: No
Urea >/=12mmol/L (BUN 33.6mg/dL): No
Serum CO2>/=35mmol/L: No
Troponin I or T elevated to MO Level (0.4mg/dL): No
NT-proBNP >/=5,000ng/L (5,000pg/ml): Yes
HF Risk Score: 4
Admission Status: HIGH RISK 26.1% Consider SNF treatment or admission to hospital
Course
Orders/Labs/Results
Orders:
Orders
08/28/23 04:29
Electrocardiogram (*1) Urgent
Reason for Study: Palpitations
EKG- Treatment ONCE
08/28/23 04:38
IV Insert/Care/Rem.- Treatment PRN
08/28/23 05:00
BNP [NT-proBNP] Urgent
Complete Blood Count/With Diff Urgent
Comprehensive Metabolic Panel Urgent
Troponin I Urgent
08/28/23 05:02
Chest [CR Chest - 2 Views ] Urgent
Comment:
Reason For Exam: sob, hx chf
Abnormal Lab Results
08/28/23
05:00
WBC 12.3 H 10^3/uL
(4.8-10.8)
RBC 3.62 L 10^6/uL
(4.70-6.10)
Hgb 11.1 L g/dL
(13.0-18.0)
Hct 35.2 L %
(39.0-52.0)
MCV 97.2 H fL
(80.0-94.0)
MCHC 31.5 L g/dL
(33.0-37.0)
Abs Immat Gran (auto) 0.1 H 10^3/uL
(0-0.05)
Absolute Neuts (auto) 10.4 H 10^3/uL
(1.4-6.5)
Absolute Lymphs (auto) 0.8 L 10^3/uL
(1.2-3.4)
Absolute Monos (auto) 1.0 H 10^3/uL
(0.1-0.6)
Neutrophils % 84.3 H %
(42.2-75.2)
Lymphocytes % 6.3 L %
(20.5-51.1)
Chloride 109 H mmol/L
(98-107)
BUN 24 H mg/dl
(9-20)
Creatinine 1.5 H mg/dL
(0.7-1.3)
Glucose 117 H mg/dl
(70-99)
Calcium 8.1 L mg/dl
(8.4-10.2)
Total Protein 6.2 L g/dl
(6.3-8.2)
08/28/23 05:00
08/28/23 05:00
Vital Signs
Initial and Last Documented VS:
Initial Vital Signs
Temp Pulse Resp BP Pulse Ox
97.7 F 72 26 135/56 96
08/28/23 04:24 08/28/23 04:24 08/28/23 04:24 08/28/23 04:24 08/28/23 04:24
Last Documented Vital Signs
Temp Pulse Resp BP Pulse Ox
97.7 F 64 16 140/76 98
08/28/23 04:24 08/28/23 06:30 08/28/23 06:30 08/28/23 06:00 08/28/23 06:30
MDM/Problems Addressed
Differential Diagnosis Includes:
Congestive heart failure pneumonia aspiration doubt PE
MDM/Problems Addressed:
Shortness of breath A-fib
Chronic conditions affecting care:
Hypertension CHF CAD A-fib
Chronic conditions affecting care: HTN, CAD, Cardiomyopathy and Arrhythmia
Acute Exacerbation and/or Progression of Chronic Illness: HTN, CAD, Cardiomyopathy and Arrhythmia
*Radiology
Radiology exam reviewed: preliminary read by ED provider
*Pulse Oximetry
Patient hypoxic: yes
*EKG
Interpreted by ED Provider?: Yes
Interpretation: abnormal
Comparison EKG: no comparison EKG present
Heart Rate: 68
Rate: normal
Rhythm: a-fib
Ischemia: non-specific ST changes
*News Camera Person Interpretation
Rate: bradycardiac
Interpretation: abnormal
Heart Rate: 70
Rhythm: a-fib
*Critical Care Note
Total Time (30-74mins, 75-104mins- exclusive of procedures): 12
Data Reviewed
Review of Other/Old Records Reveals: Labs, Radiology Studies, Operative Reports, Progress Notes and Discharge Summary
Source: patient and records
Patient Management
Social determinants of health affecting care: Living situation and Poor outpatient follow-up
Escalation/DeEscalation of care consider admission/obs:
Patient with significant comorbid conditions suspect he is in exacerbation congestive heart failure he looks deconditioned he is hypoxic requiring oxygen will almost certainly require admission
ED Attending Note
-
Portions of this chart may have been created with voice recognition software.� Occasional wrong word or��sound alike� substitutions may have occurred due to the inherent limitations of voice recognition software.
Discharge Plan
Departure
Prescriptions:
No Action
atorvastatin 40 MG tablet
40 mg PO QPM
dabigatran etexilate [Pradaxa] 150 MG capsule
150 mg PO BID
tamsulosin 0.4 MG capsule
0.4 mg PO HS
finasteride 5 MG tablet
5 mg PO HS
metoprolol tartrate 25 MG tablet
25 mg PO BID
levothyroxine 112 MCG tablet
112 mcg PO DAILY
fluoxetine [Prozac] 40 MG capsule
40 mg PO HS
albuterol sulfate [ProAir HFA] 90 mcg/actuation Hfa Aerosol Inhaler
2 inh INHALATION R BIDPRN PRN (Reason: SOB )
torsemide 20 mg tablet
40 mg PO BID@0800,1600
folic acid 1 mg Tablet
1 mg PO DAILY
potassium chloride [Klor-Con] 20 mEq packet
20 meq PO BID@0800,1600
hydralazine 25 mg Tablet
25 mg PO TID Qty: 1 0RF
mirtazapine 15 mg Tablet
15 mg PO HS Qty: 1 0RF
multivitamin with folic acid [Tab-A-Rikki] 400 mcg Tablet
1 tab PO TuTh@0800 Qty: 1 0RF
clopidogrel 75 mg Tablet
75 mg PO DAILY Qty: 1 0RF
colchicine 0.6 mg Tablet
0.3 mg PO DAILY PRN (Reason: ankle pain) Qty: 1 0RF
Striverdi Respimat 2.5 mcg/actuation Mist
2.5 mcg inhalation R DAILY Qty: 4 0RF
tramadol 50 mg Tablet
50 mg PO Q6HPRN PRN (Reason: moderate pain) Qty: 10 0RF
Referrals:
Rajiv Pavon MD [Family Provider] -
Interventions
Interventions:
*Risk Screen - Suicide Last Done: 08/28/23 04:24
*General Assessment Last Done: 08/28/23 04:41
*Neglect/Abuse Screening Last Done: 08/28/23 04:24
ED- Fall Risk Assessment Last Done: 08/28/23 04:41
*ED COVID-19 Vaccine History Last Done: 08/28/23 04:41
ED-Skin Assessment Last Done: 08/28/23 04:41
ED- Pulmonary Assessment Last Done: 08/28/23 04:41
ED- Neurological Assessment Last Done: 08/28/23 04:41
ED-Musculoskeletal Assessment Last Done: 08/28/23 04:41
ED- Cardiac Assessment Last Done: 08/28/23 04:41
Discharge Date and Time
Print Language: MACEDONIAN
[2023-08-28] MEDS: LASIX 80 MG IV ×2 (07:20→15:51)
[2023-08-28] MEDS: DUONEB 3 ML INH (08:02)
--- NOTE | 2023-08-28 08:09 | HPS.HSE ---
Family Physician
-
Family Physician: Rajiv Pavon
Chief Complaint
-
Shortness of breath.
History of Present Illness
Patient is a 83 years old male with history of CHF, COPD, A-fib, hypertension, CVA, hypothyroidism, presented to the hospital with shortness of breath. Patient has been increasingly having shortness of breath for the last several days and it has
been progressively getting worse associated with increased lower extremity edema. Patient has been complaining of increased shortness of breath over the last 5 days. He has some orthopnea. Patient also has been having some generalized weakness
which has been significant for him over the last several days. He had mild dry cough. He might have not taken his diuretics yesterday per ER report but he tells me he is taking all his medication including his anticoagulant. He also complains of
bilateral lower extremity discomfort but more so on the right lower extremity. Denies any chest pain. Denies any fevers or chills. Denies any new rash. Denies any nausea vomiting or diarrhea. In the ED, noted hypoxic and placed on oxygen,
patient was noted with a BNP of 3730 and troponin less than 0.012, creatinine 1.5, white blood cell count 12.3, hemoglobin 11.1. Chest x-ray no acute cardiopulmonary disease per radiology. He was given Lasix 80 mg IV x 1 and DuoNeb x 1 in the ER.
He was referred to hospitalist for further evaluation.
Medical History
Past Medical History
Past Medical History: Reports Other (Hypertension, hyperlipidemia, chronic diastolic CHF, persistent atrial fibrillation, CKD, COPD, morbid obesity, lymphedema,)
Past Surgical History: Reports Other (Cardioversion, cardiac cath couple months ago.)
Social History
Tobacco: Non-smoker
Alcohol: None
Drug: None
Family History
Family History: Not pertinent
Allergies / Home Medications
Allergies reflects when Allergies were last updated in [facility].
Home Medications with original date entered in [facility]
Allergy/Medication List:
Allergies
Allergy/AdvReac Type Severity Reaction Status Date / Time
No Known Allergies Allergy Verified 08/28/23 04:28
Home Medications
atorvastatin 40 mg tablet 40 mg PO QPM High cholesterol 01/19/20
dabigatran etexilate 150 mg capsule (Pradaxa) 150 mg PO BID Blood clot prevention/tx 01/19/20
finasteride 5 mg tablet 5 mg PO HS Urinary issue 04/07/20
metoprolol tartrate 25 mg tablet 25 mg PO BID Blood pressure 04/07/20
tamsulosin 0.4 mg capsule 0.4 mg PO HS Urinary issue 04/07/20
levothyroxine 112 mcg tablet 112 mcg PO DAILY Thyroid 07/21/21
fluoxetine 40 mg capsule (Prozac) 40 mg PO HS Mental Health/Anxiety 11/02/21
albuterol sulfate 90 mcg/actuation aerosol inhaler (ProAir HFA) 2 inh inhalation R BIDPRN PRN SOB 06/27/22
folic acid 1 mg tablet 1 mg PO DAILY Supplement 06/19/23
potassium chloride 20 mEq oral packet (Klor-Con) 20 meq PO BID@0800,1600 Supplement 06/19/23
torsemide 20 mg tablet 40 mg PO BID@0800,1600 Fluid Retention/Swelling 06/19/23
clopidogrel 75 mg tablet 75 mg PO DAILY #1 tab 06/25/23
colchicine 0.6 mg tablet 0.3 mg (1/2 x 0.6 mg) PO DAILY PRN ankle pain #1 tab 06/25/23
hydralazine 25 mg tablet 25 mg PO TID #1 tab 06/25/23
multivitamin with folic acid 400 mcg tablet (Tab-A-Rikki) 1 tab PO TuTh@0800 #1 tab 06/25/23
olodaterol 2.5 mcg/actuation mist for inhalation (Striverdi Respimat) 2.5 mcg inhalation R DAILY #4 grams 06/25/23
tramadol 50 mg tablet 50 mg PO Q6HPRN PRN moderate pain #10 tabs 06/25/23
mirtazapine 15 mg tablet 15 mg PO HS 08/28/23
Review of Systems
-
A 12 point ROS was completed and negative except as noted: Yes
Physical Exam
Vital Signs
Vital Signs
Temp Pulse Resp BP Pulse Ox
97.7 F 64 16 140/76 98
08/28/23 04:24 08/28/23 06:30 08/28/23 06:30 08/28/23 06:00 08/28/23 06:30
Physical exam:
General: Acutely ill
HEENT: Normocephalic, Atraumatic and Moist Mucous Membranes
Respiratory: Coarse crackles bilateral; Negative Wheezes, Rales or Rhonchi
Cardiac: Irregular rate and rhythm and S1/S2
GI: Soft, Nontender and Nondistended
Musculoskeletal: Bilateral edema. No Clubbing, No Cyanosis
Neuro: Awake, Alert and Oriented
Psych: Calm
Physical Exam
General: Other
Laboratory Results
-
08/28/23 05:00
08/28/23 05:00
Laboratory Results
Total Bilirubin 0.5 mg/dl (0.2-1.3) 08/28/23 05:00
AST 17 U/L (17-59) 08/28/23 05:00
ALT 11 U/L (0-50) 08/28/23 05:00
Alkaline Phosphatase 85 U/L (38-126) 08/28/23 05:00
Troponin I < 0.012 ng/ml 08/28/23 05:00
Impression/Plan
-
IMPRESSION:
Patient 83 years old male with multiple comorbidities presented to the hospital worsening shortness of breath and found to be in acute decompensated heart failure. Patient with acute on chronic diastolic congestive heart failure. Patient also with
chronic/persistent atrial fibrillation. Given patient's presentation and multiple comorbidities he is at increased morbidity mortality and needs to be in the hospital treated accordingly and monitor very closely.
PLAN:
Acute hypoxic respiratory insufficiency due to Acute on chronic diastolic heart failure--> IV diuretics of Lasix 40 mg IV twice a day but he might need more in the ballpark of 80 mg twice a day but will reevaluate (Given 80 mg IV in the ER), monitor
strict I/O, monitor daily weight, monitor renal function and electrolytes, reviewed latest echocardiogram on our system, continue guideline-directed medical therapy for heart failure (GDMT), fluid restriction, salt restriction, heart failure
education, follow up clinical response. Cardiology consult.
Persistent A.fib-->continue BB and Pradaxa.
Leukocytosis--> reactive versus infectious. Afebrile and not localizing symptoms of infection but follow-up closely.
CKD--> avoid nephrotoxics, cont to monitor while diurese, creatinine 1.5 upon admission.
HTN--> cont current anti-hypertensives and adjust meds according to BP
Morbid obesity--> affect all spheres of care, might benefit from OP bariatric surgery if candidate.
DVT proph-Pradaxa
Full Code
Total time spent on today's encounter was 75 minutes which included time spent in counseling the patient/family regarding diagnosis and treatment plan as listed above, goals of care, and symptom management. Case was discussed with nursing staff,
specialists, and care coordinators/case management. All labs and imaging personally reviewed by me. Remainder the time spent in detailed review of previous records, lab data, imaging, and other medical provider documentation.
--- NOTE | 2023-08-28 10:39 | CON.CAR ---
Addendum entered and electronically signed by Max Spivey MD 08/28/23 14:24:
I saw and examined the patient.
The HAT LINING BLOCKER's note was reviewed and I agree with the note.
Comment:
HFpEF, acute on chronic
CKD3a
Needing PO KCl chronically (not on MRA)
Perm AFib
Plan:
He needs diuresis
We can stop KCl and add MRA (Aldactone and plan on serial BMP checks as outpatient)
We can add SGLT2-I
-
-
BB are not a part of HFpEF treatment plan but are used for rate control of his perm AFib
Original Note:
Consultation
Consultation Request
Date/Time Consultation Requested: 08/28/23 08:20
Date/Time Consultation Performed: 08/28/23 10:30
Requesting Provider: Dr. Lizarraga
Performing Provider: ALEXSANDRA Parrish for Dr. Spivey
Reason for Consultation: Acute on chronic HF
Medical History
-
Chief Complaint: Fatigue, weakness
History of Present Illness:
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
Emergency Department with complaints of weakness. He reports he has been experiencing weakness for several days. He states his right knee 'just gave out' this morning. After his prior hospitalization, he completed rehab at [facility]. He was given
a prescription for physical therapy by his PCP but has been having difficulties caring for himself at home. He has a weight gain, elevated proBNP, and worsening lower extremity edema. This is all consistent with acute on chronic heart failure. He
endorses medication and dietary adherence. He is not having any chest pain.
Past Medical History
Past Medical History: Arrhythmias (permanent atrial fibrillation [on Pradaxa]), CAD, CHF, COPD, CVA, HTN, Hypercholesterolemia and Other (chronic LE lymphedema, obesity)
Past Surgical History: Orthopedic
Social History
Tobacco: Former Smoker
Alcohol: None
Drug: None
Personal:
Living: Alone
Employment: Retired
Family History
Family History: Reviewed & Not Pertinent
Allergies / Home Medications
Allergy/AdvReac Type Severity Reaction Status Date / Time
No Known Allergies Allergy Verified 08/28/23 04:28
�Medication �Instructions �Recorded �Confirmed �Type
atorvastatin 40 mg tablet 40 mg PO QPM High cholesterol 01/19/20 08/28/23 History
dabigatran etexilate 150 mg 150 mg PO BID Blood clot 01/19/20 08/28/23 History
capsule (Pradaxa) prevention/tx
finasteride 5 mg tablet 5 mg PO HS Urinary issue 04/07/20 08/28/23 History
metoprolol tartrate 25 mg tablet 25 mg PO BID Blood pressure 04/07/20 08/28/23 History
tamsulosin 0.4 mg capsule 0.4 mg PO HS Urinary issue 04/07/20 08/28/23 History
levothyroxine 112 mcg tablet 112 mcg PO DAILY Thyroid 07/21/21 08/28/23 History
fluoxetine 40 mg capsule (Prozac) 40 mg PO HS Mental Health/Anxiety 11/02/21 08/28/23 History
albuterol sulfate 90 mcg/actuation 2 inh inhalation R BIDPRN PRN SOB 06/27/22 08/28/23 History
aerosol inhaler (ProAir HFA)
folic acid 1 mg tablet 1 mg PO DAILY Supplement 06/19/23 08/28/23 History
potassium chloride 20 mEq oral 20 meq PO BID@0800,1600 Supplement 06/19/23 08/28/23 History
packet (Klor-Con)
torsemide 20 mg tablet 40 mg PO BID@0800,1600 Fluid 06/19/23 08/28/23 History
Retention/Swelling
clopidogrel 75 mg tablet 75 mg PO DAILY #1 tab 06/25/23 08/28/23 Rx
colchicine 0.6 mg tablet 0.3 mg (1/2 x 0.6 mg) PO DAILY PRN 06/25/23 08/28/23 Rx
ankle pain #1 tab
hydralazine 25 mg tablet 25 mg PO TID #1 tab 06/25/23 08/28/23 Rx
multivitamin with folic acid 400 1 tab PO TuTh@0800 #1 tab 06/25/23 08/28/23 Rx
mcg tablet (Tab-A-Rikki)
olodaterol 2.5 mcg/actuation mist 2.5 mcg inhalation R DAILY #4 grams 06/25/23 08/28/23 Rx
for inhalation (Striverdi Respimat)
tramadol 50 mg tablet 50 mg PO Q6HPRN PRN moderate pain 06/25/23 08/28/23 Rx
#10 tabs
mirtazapine 15 mg tablet 15 mg PO HS 08/28/23 08/28/23 History
Review of Systems
-
History Source: Patient
All other systems: Negative unless noted
Constitutional: Fatigue
Respiratory: No Symptoms
Cardiac: No Symptoms
Musculoskeletal: Joint Pain (right knee) and Edema
Neurological: Weakness
Physical Exam
Vital Signs
Temp Pulse Resp BP Pulse Ox
97.7 F 70 23 149/94 97
08/28/23 04:24 08/28/23 09:00 08/28/23 09:00 08/28/23 09:00 08/28/23 09:00
Lab Results
08/28/23 05:00
08/28/23 05:00
Troponin I < 0.012 ng/ml 08/28/23 05:00
Uka-F-Zbkoyfgveei Pept 3730 pg/ml 08/28/23 05:00
Physical Exam
General: Well Developed, Well Nourished, No Apparent Distress and Comfortable
HEENT: Normocephalic, Anicteric and Moist Mucous Membranes
Respiratory: Clear and Non Labored Respirations
Cardiac: S1/S2, Irregular Rhythm and Peripheral Edema (+3 LE edema)
Breast: Deferred by me
GI: Soft, Non Tender, Non Distended and Normal Bowel Sounds
Rectal: Deferred by Provider
Genito-urinary: No Costovertebral Tender
Musculoskeletal: No Clubbing and No Cyanosis
Skin: Warm and Dry
Neuro: AO x 3
Hematologic/Lymphatic: No Lymphadenopathy
Psych: Calm
Impression / Plan
-
HFpEF, acute on chronic
-Volume overloaded on exam with elevated proBNP
-Denies missed doses of torsemide 40 mg twice daily at home
-Diuresis with furosemide 80 mg IV twice daily, goal weight ~129kg
-RHC 06/2023: LVEDP = 24 mmHg, PCWP = 25 mmHg at 134.3 kg
-Add spironolactone given the need for potassium supplementation
-Transition metoprolol to tartrate to metoprolol succinate
-Can consider addition of Farxiga ($15/month)
-Echocardiogram in am
Permanent atrial fibrillation
-Rate controlled on metoprolol tartrate 25 mg twice daily
-Oral Anticoagulation: Dabigatran, he denies missed doses and abnormal bleeding
-[id number]: score at least 7 (Heart failure, HTN, age 75 or more, prior Stroke/TIA, Vascular disease)
CAD
-Stable without chest pain
-Overlapping stents to LAD (06/2023) on DAPT (clopidogrel and dabigatran)
-Continue atorvastatin 40 mg, goal LDL <55
CKD3a, follow with diuresis
Anemia of chronic disease
Moderate pulmonary HTN by cardiac cath 06/2023
COPD
Chronic lymphedema, he would benefit from compression
Data Reviewed
-
EKG: Report Reviewed by me (Atrial fibrillation, rate 64)
Radiology: Report Reviewed by me (CXR: No active cardiopulmonary disease.)
Medical Tests (Nuc Med, Echo etc): Report Reviewed by me (LHC/RHC as above)
Labs: Labs Reviewed by me
Old Records: Reviewed
[2023-08-28] MEDS: LOPRESSOR PO ×2 (12:46→12:47)
[2023-08-28] MEDS: PLAVIX 75 MG PO (12:49)
[2023-08-28] MEDS: SYNTHROID 112 MCG PO (12:49)
[2023-08-28] MEDS: FOLVITE 1 MG PO (12:49)
[2023-08-28] MEDS: PRADAXA 150 MG PO ×2 (12:49→22:21)
[2023-08-28] MEDS: ULTRAM 50 MG PO (13:02)
[2023-08-28] MEDS: STRIVERDI RESPIMAT INH (14:01)
[2023-08-28] MEDS: APRESOLINE 25 MG PO ×2 (15:50→22:21)
[2023-08-28] MEDS: DILAUDID 0.25 MG IV ×2 (15:55→23:39)
[2023-08-28] MEDS: LIPITOR 40 MG PO (17:43)
[2023-08-28] MEDS: FLOMAX 0.400000000000000022 MG PO (22:21)
[2023-08-28] MEDS: PROSCAR 5 MG PO (22:21)
[2023-08-28] MEDS: LOPRESSOR 25 MG PO (22:24)
[2023-08-28] MEDS: PROZAC 40 MG PO (22:29)
[2023-08-28] MEDS: REMERON 15 MG PO (22:29)
[2023-08-29] VITALS (8 sets, daily range): BP systolic 99–144; BP diastolic 46–70; PULSE 64; O2SAT 94; BMI 39.8; BMI 41.2
[2023-08-29] MEDS: COLCHICINE 0.299999999999999989 MG PO (04:04)
[2023-08-29] MEDS: SYNTHROID 112 MCG PO (06:07)
[2023-08-29 07:44] LABS: % Basophils 0.2 % (0-2); % Immature Granulocytes 0.3 % (0-0.5); % Lymphocytes 7.1 % (20.5-51.1); % Monocytes 7.6 % (1.7-9.3); % Neutrophils 83.8 % (42.2-75.2); Absolute Eosinophils 0.1 10^3/uL (0-0.7); Absolute Lymphocytes 0.9 10^3/uL (1.2-3.4); Absolute Monocytes 0.9 10^3/uL (0.1-0.6); Hematocrit 35.1 % (39.0-52.0); Hemoglobin 10.8 g/dL (13.0-18.0); Mean Corp Hgb Conc. 30.8 g/dL (33.0-37.0); Mean Corpuscular Hgb 30.4 pg (27.0-31.0); Mean Corpuscular Volume 98.9 fL (80.0-94.0); Mean Platelet Volume 9.7 fL (7.4-10.4); Nucleated Red Blood Cells % 0 % (-); Platelet Count 210 10^3/uL (130-400); Red Blood Cell Count 3.55 10^6/uL (4.70-6.10); Red Cell Dist. Width 13.9 % (11.5-14.5)
[2023-08-29] MEDS: PRADAXA 150 MG PO ×2 (07:56→20:16)
[2023-08-29] MEDS: PLAVIX 75 MG PO (07:56)
[2023-08-29] MEDS: ULTRAM 50 MG PO (07:56)
[2023-08-29] MEDS: FARXIGA 10 MG PO (07:56)
[2023-08-29] MEDS: LOPRESSOR 25 MG PO ×2 (07:57→20:17)
[2023-08-29] MEDS: APRESOLINE 25 MG PO ×3 (07:57→23:45)
[2023-08-29] MEDS: ALDACTONE 25 MG PO (07:57)
[2023-08-29] MEDS: FOLVITE 1 MG PO (07:57)
[2023-08-29] MEDS: LASIX 80 MG IV ×2 (07:58→15:51)
[2023-08-29] MEDS: STRIVERDI RESPIMAT 2 PUFF INH (08:39)
[2023-08-29 09:09] LABS: Glycohemoglobin (HgbA1c) 5.8 % (4.0-5.6)
[2023-08-29] MEDS: DILAUDID 0.25 MG IV (09:28)
--- NOTE | 2023-08-29 09:59 | W.PN.HOSP.TC ---
Today's Communication/Plan
-
IV Lasix. Start oral steroids and colchicine.
Assessment / Plan
Assessment / Plan
Physical exam:
General: Acutely ill
HEENT: Normocephalic, Atraumatic and Moist Mucous Membranes
Respiratory: Coarse crackles bilateral; Negative Wheezes, Rales or Rhonchi
Cardiac: Irregular rate and rhythm and S1/S2
GI: Soft, Nontender and Nondistended
Musculoskeletal: Bilateral edema. Both knees are swollen but no erythema or warmth and amenable to flexion and extension. No Clubbing, No Cyanosis
Neuro: Awake, Alert and Oriented
Psych: Calm
A/P:
Acute hypoxic respiratory insufficiency due to Acute on chronic diastolic heart failure--> IV diuretics of Lasix 80 mg IV BID, monitor strict I/O, monitor daily weight, monitor renal function and electrolytes, reviewed latest echocardiogram on our
system, continue guideline-directed medical therapy for heart failure (GDMT), fluid restriction, salt restriction, heart failure education, follow up clinical response. Cardiology consult appreciated. (HbA1c ordered by cardio and it is 5.8)
Gouty attack on lower extremities--> start colchicine 0.6 mg twice a day, start prednisone 30 mg twice a day rather than NSAIDs since he is on both antiplatelets and anticoagulation, continue with Dilaudid, check uric acid. No need for ultrasound
of the legs since he is consistently on anticoagulation.
Persistent A.fib-->continue BB and Pradaxa.
CAD--> continue Plavix and Pradaxa due to overlapping stents to LAD back in June 2023.
Leukocytosis--> reactive versus infectious. Afebrile and not localizing symptoms of infection. Could be related to gout.
CKD--> component of cardiorenal syndrome. Avoid nephrotoxics, cont to monitor while diurese, creatinine 1.5 upon admission. Creatinine down to 1.3 today with diuresis.
HTN--> cont current anti-hypertensives and adjust meds according to BP
Morbid obesity--> affect all spheres of care, might benefit from OP bariatric surgery if candidate.
DVT proph-Pradaxa
Full Code
Total time spent on today's encounter was 52 minutes which included time spent in counseling the patient/family regarding diagnosis and treatment plan as listed above, goals of care, and symptom management. Case was discussed with nursing staff,
specialists, and care coordinators/case management. All labs and imaging personally reviewed by me. Remainder the time spent in detailed review of previous records, lab data, imaging, and other medical provider documentation.
Anticipated Discharge: > 48 hours
Subjective/Interval History
-
Date of Service: August 29, 2023
Patient complains significant amount of pain in his knees and unable to do anything with his legs due to pain. Prior he had pain in his hip and also shoulder area. No fevers. Shortness of breath improving.
Objective Data
-
Labs:
Laboratory Results
08/29/23
07:07
WBC 12.0 H
Hgb 10.8 L
Hct 35.1 L
Plt Count 210
Sodium Pending
Potassium Pending
Chloride Pending
Carbon Dioxide Pending
BUN Pending
Creatinine Pending
Glucose Pending
Calcium Pending
Vital Signs:
Vital Signs
Temp Pulse Resp BP Pulse Ox
98.9 F 75 18 99/62 97
08/29/23 08:00 08/29/23 08:45 08/29/23 08:45 08/29/23 08:00 08/29/23 08:45
I&O
08/28/23 08/29/23 08/30/23
06:59 06:59 06:59
Intake Total 1200 / 1200
Output Total 1900 / 1900
Balance -700 / -700
--- NOTE | 2023-08-29 10:01 | PTCARENOTE ---
pt aaox3. states 8/10 pain in both legs. pain med given as ordered. pt states he feels worse today. 3lnc. breath sounds diminished. afib seen on monitor. +2 edema in lower legs/pedal. weak pulses. condom cath on pt. pt refusing to turn and
eleuterio wraps due to pain. MD made aware of pt condition.
[2023-08-29 10:30] LABS: Blood Urea Nitrogen 25 mg/dl (9-20); Calcium 8.1 mg/dl (8.4-10.2); Carbon Dioxide 28 mmol/L (22-30); Chloride 105 mmol/L (98-107); Estimated Creatinine Clearance 58 ml/min; Glucose 97 mg/dl (70-99); Potassium 4.3 mmol/L (3.5-5.1); Sodium 140 mmol/L (135-145); eGFR 54.51
[2023-08-29] MEDS: DELTASONE 30 MG PO ×2 (11:30→20:16)
[2023-08-29] MEDS: COLCHICINE 0.599999999999999978 MG PO ×2 (11:30→20:18)
--- NOTE | 2023-08-29 11:36 | W.PN.CD ---
Addendum entered and electronically signed by Rei Tate MD 08/30/23 08:00:
I saw and examined the patient.
The PARCEL POST CARRIER's note was reviewed and I agree with the note.
Comment: Late addendum: patient seen and examined on August 29, 2023.
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
complaints of weakness. He has a weight gain, elevated proBNP, and worsening lower extremity edema.
- cont IV diuresis
Original Note:
Today's Communication / Plan
-
-continue IV diuresis and follow weights, I/O's, renal function/electrolytes
-Steven added this admit
Impression / Plan
-
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
Department with complaints of weakness. He has a weight gain, elevated proBNP, and worsening lower extremity edema. This is all consistent with acute on chronic heart failure.
HFpEF, acute on chronic:
-echo 04/25/23, limited study: Normal left ventricular size and systolic function without regional wall motion abnormality. Cannot comment on right ventricular size, but function appears normal. Aortic sclerosis. Mild pulmonary hypertension.
-Continue diuresis with furosemide 80 mg IV twice daily and monitor response. Goal weight was said to be 129 kg, but I think he will need more than that based on today's exam. His catheter bag is full, so seems to be diuresing- nursing to
dump/chart. Of note, I suspect the weight from 08/28/23 of 126 kg is erroneous as it is not similar to weight from today or earlier yesterday, so overall seems weight coming down with diuresis.
-RHC 06/2023: LVEDP = 24 mmHg, PCWP = 25 mmHg at 134.3 kg
-we have added spironolactone and Farxiga- continue
Permanent atrial fibrillation:
-Rate controlled- continue metoprolol
-continue Pradaxa for OAC
CAD:
-Stable without chest pain
-Overlapping stents to LAD (06/2023) on DAPT (clopidogrel and dabigatran)
-Continue atorvastatin 40 mg, goal LDL <55
CKD3a, follow with diuresis
Anemia of chronic disease
Moderate pulmonary HTN by cardiac cath 06/2023
COPD
Chronic lymphedema, he would benefit from compression
Physical Exam
Vital Signs/Labs
Vital Signs
Temp Pulse Resp BP Pulse Ox
98.9 F 75 18 99/62 97
08/29/23 08:00 08/29/23 08:45 08/29/23 08:45 08/29/23 08:00 08/29/23 08:45
08/28/23 08/29/23 08/30/23
06:59 06:59 06:59
Actual Weight 132.5 kg 130.351 kg
08/29/23 07:07
08/29/23 07:07
08/28/23
05:00
Rld-B-Atjtajtcxfy Pept 3730
LAB Results
08/28/23
05:00
Troponin I < 0.012
Physical Exam
Constitutional: No acute distress
EENT: Anicteric
Cardiovascular: Rhythm/rate is irregular
Respiratory: Other (on O2 by NC, some mild expiratory wheezing, scattered. Otherwise diminished.)
Neuro/Psych: AO x 3
Other: Skin (warm and dry)
Data Reviewed
-
Date of Service: August 29, 2023
EKG: Other (AFIB, rate controlled)
Labs: Labs Reviewed by me
[2023-08-29] MEDS: LIPITOR 40 MG PO (17:12)
--- NOTE | 2023-08-29 18:01 | CM ---
met with patient at bedside.patient lives alone in a 2 story house with 4 steps to enter,his bed and bath is on the second level,he amb with rw,he is I with his adl.dme:shower bench and rrw.his pcp is dr monika ahn and he uses [facility] in
[place] for his pharmacy needs.he does not have home oxygen.he has had a vn from [facility] and has been to [facility] and [facility] in past.he does not want to return to [facility],pt is adm with chf on iv lasix,3 liters nc o2.he was seen by therapy
who recommend snf.referrals sent via care port.
[2023-08-29] MEDS: PROSCAR 5 MG PO (23:04)
[2023-08-29] MEDS: PROZAC 40 MG PO (23:04)
[2023-08-29] MEDS: REMERON 15 MG PO (23:04)
[2023-08-29] MEDS: FLOMAX 0.400000000000000022 MG PO (23:04)
[2023-08-30] VITALS (7 sets, daily range): BP systolic 116–143; BP diastolic 55–84; BMI 41.9
[2023-08-30] MEDS: TYLENOL 650 MG PO (03:15)
[2023-08-30] MEDS: SYNTHROID 112 MCG PO (08:10)
[2023-08-30] MEDS: STRIVERDI RESPIMAT 2 PUFF INH (08:39)
--- NOTE | 2023-08-30 08:44 | W.PN.HOSP.TC ---
Addendum entered and electronically signed by Earnest Lizarraga MD 08/30/23 13:36:
Permanent atrial fibrillation
Original Note:
Today's Communication/Plan
-
IV Lasix. Oral steroids and colchicine.
Assessment / Plan
Assessment / Plan
Physical exam:
General: Acutely ill
HEENT: Normocephalic, Atraumatic and Moist Mucous Membranes
Respiratory: Coarse crackles bilateral; Negative Wheezes, Rales or Rhonchi
Cardiac: Irregular rate and rhythm and S1/S2
GI: Soft, Nontender and Nondistended
Musculoskeletal: Bilateral edema. Both knees are swollen but no erythema or warmth and amenable to flexion and extension. No Clubbing, No Cyanosis
Neuro: Awake, Alert and Oriented
Psych: Calm
A/P:
Acute hypoxic respiratory insufficiency due to Acute on chronic diastolic heart failure--> IV diuretics of Lasix 80 mg IV BID, monitor strict I/O, monitor daily weight, monitor renal function and electrolytes, reviewed latest echocardiogram on our
system, continue guideline-directed medical therapy for heart failure (GDMT), fluid restriction, salt restriction, heart failure education, follow up clinical response. Cardiology consult appreciated. (HbA1c ordered by cardio and it is 5.8)
Gouty attack on lower extremities--> start colchicine 0.6 mg twice a day, start prednisone 30 mg twice a day rather than NSAIDs since he is on both antiplatelets and anticoagulation, continue with Dilaudid, check uric acid. No need for ultrasound
of the legs since he is consistently on anticoagulation.
Fever, low-grade ---> likely from gout but rule out other infectious etiology obtain blood cultures and urinalysis.
Persistent A.fib-->continue BB and Pradaxa.
CAD--> continue Plavix and Pradaxa due to overlapping stents to LAD back in June 2023.
Leukocytosis--> reactive versus infectious. Afebrile and not localizing symptoms of infection. Could be related to gout.
CKD--> component of cardiorenal syndrome. Avoid nephrotoxics, cont to monitor while diurese, creatinine 1.5 upon admission. Creatinine down to 1.3 today with diuresis.
HTN--> cont current anti-hypertensives and adjust meds according to BP
Morbid obesity--> affect all spheres of care, might benefit from OP bariatric surgery if candidate.
DVT proph-Pradaxa
Full Code
Total time spent on today's encounter was 52 minutes which included time spent in counseling the patient/family regarding diagnosis and treatment plan as listed above, goals of care, and symptom management. Case was discussed with nursing staff,
specialists, and care coordinators/case management. All labs and imaging personally reviewed by me. Remainder the time spent in detailed review of previous records, lab data, imaging, and other medical provider documentation.
Anticipated Discharge: > 48 hours
Subjective/Interval History
-
Date of Service: August 30, 2023
Patient pain in his lower extremities improving substantially today. He had low-grade fever. Less shortness of breath. No chest pain
Objective Data
-
Labs:
Laboratory Results
08/30/23
07:40
Sodium Pending
Potassium Pending
Chloride Pending
Carbon Dioxide Pending
BUN Pending
Creatinine Pending
Glucose Pending
Calcium Pending
Vital Signs:
Vital Signs
Temp Pulse Resp BP Pulse Ox
97.3 F 68 20 120/66 95
08/30/23 08:26 08/30/23 08:26 08/30/23 08:26 08/30/23 08:26 08/30/23 08:26
I&O
08/29/23 08/30/23 08/31/23
06:59 06:59 06:59
Intake Total 1200 / 1200 1260 / 1260
Output Total 1900 / 1900 2250 / 2250
Balance -700 / -700 -990 / -990
--- NOTE | 2023-08-30 08:58 | W.PN.CD ---
Today's Communication / Plan
-
Continue IV diuresis
K > 4 Mag > 2
Impression / Plan
-
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
Department with complaints of weakness. He has a weight gain, elevated proBNP, and worsening lower extremity edema. This is all consistent with acute on chronic heart failure.
HFpEF, acute on chronic:
-echo 04/25/23, limited study: Normal left ventricular size and systolic function without regional wall motion abnormality. Cannot comment on right ventricular size, but function appears normal. Aortic sclerosis. Mild pulmonary hypertension.
-Continue diuresis with furosemide 80 mg IV twice daily weight continues to come down goal weight ~280 lbs.
-RHC 06/2023: LVEDP = 24 mmHg, PCWP = 25 mmHg at 134.3 kg
-we have added spironolactone and Farxiga- continue
Permanent atrial fibrillation:
-Rate controlled- continue metoprolol
-continue Pradaxa for OAC
CAD:
-Stable without chest pain
-Overlapping stents to LAD (06/2023) on DAPT (clopidogrel and dabigatran)
-Continue atorvastatin 40 mg, goal LDL <55
CKD3a, follow with diuresis
Anemia of chronic disease
Moderate pulmonary HTN by cardiac cath 06/2023
COPD
Chronic lymphedema, he would benefit from compression
Physical Exam
Vital Signs/Labs
Vital Signs
Temp Pulse Resp BP Pulse Ox
97.3 F 68 20 120/66 95
08/30/23 08:26 08/30/23 08:26 08/30/23 08:26 08/30/23 08:26 08/30/23 08:26
04/08/30/23 08/31/23
06:59 06:59 06:59
Actual Weight 287 lb 6 oz
08/29/23 07:07
08/28/23
05:00
Kua-K-Tslybmacauu Pept 3730
LAB Results
08/28/23
05:00
Troponin I < 0.012
Physical Exam
Constitutional: No acute distress
EENT: Anicteric
Cardiovascular: Rhythm/rate is irregular and Pedal edema present
Respiratory: Respiratory effort normal, Wheeze Present and Crackles Present
GI: Soft (obese)
Neuro/Psych: AO x 3
Data Reviewed
-
Date of Service: August 30, 2023
Medical Decision Making: Reviewed Test Results
EKG: Tracing Personally Visualized and interpreted (AF)
Echo: Report Reviewed by me
Labs: Labs Reviewed by me (not back will review)
[2023-08-30] MEDS: DELTASONE 30 MG PO ×2 (09:01→19:45)
[2023-08-30] MEDS: APRESOLINE 25 MG PO ×3 (09:01→22:34)
[2023-08-30] MEDS: LOPRESSOR 25 MG PO ×2 (09:01→19:48)
[2023-08-30] MEDS: PLAVIX 75 MG PO (09:01)
[2023-08-30] MEDS: PRADAXA 150 MG PO ×2 (09:01→19:46)
[2023-08-30] MEDS: FARXIGA 10 MG PO (09:01)
[2023-08-30] MEDS: ALDACTONE 25 MG PO (09:02)
[2023-08-30] MEDS: LASIX 80 MG IV ×2 (09:02→16:53)
[2023-08-30] MEDS: COLCHICINE 0.599999999999999978 MG PO ×2 (09:02→19:47)
[2023-08-30] MEDS: FOLVITE 1 MG PO (09:02)
[2023-08-30] MEDS: DESENEX/MITRAZOL/ZEASORB 1 APPLIC TOPICAL ×2 (09:03→19:48)
[2023-08-30 09:10] LABS: Blood Urea Nitrogen 30 mg/dl (9-20); Calcium 8.4 mg/dl (8.4-10.2); Carbon Dioxide 28 mmol/L (22-30); Chloride 103 mmol/L (98-107); Estimated Creatinine Clearance 47 ml/min; Glucose 120 mg/dl (70-99); Potassium 3.9 mmol/L (3.5-5.1); Sodium 138 mmol/L (135-145); eGFR 42.49
[2023-08-30] MEDS: THERAGRAN 1 TABLET PO (09:17)
--- NOTE | 2023-08-30 10:20 | PN.CDI ---
CDI
- -
CDI:
Physician Documentation Request
Admit Date: 08/28/23 08:44
Dear Doctor Zia,
Patient admitted for acute on chronic heart failure.
08/27 Cardiology Consult: 'Permanent atrial fibrillation -Rate controlled on metoprolol tartrate 25 mg twice daily'
08/28 Hospitalist PN: 'Persistent A.fib-->continue BB and Pradaxa.'
If possible, please provide further specificity regarding atrial fibrillation, such as:
Permanent atrial fibrillation - when a decision has been made to accept the presence of AF and there is no further attempt to restore or maintain sinus rhythm
Persistent atrial fibrillation - episodes of continuous AF that last more than 7 days and do not self-terminate
Other - please specify
Use of terms such as suspected, likely, concern for, or probable (associated with a specific diagnosis that is being evaluated, monitored, or treated as if it exists) are acceptable and can be coded in the inpatient setting, when documented at the
time of discharge.
Thank you,
Taty Hogue RN, BSN
CDI Specialist
Available via [place] text
Please use your independent medical judgment in providing your response.
[2023-08-30] MEDS: LIPITOR 40 MG PO (16:54)
[2023-08-30] MEDS: ULTRAM 50 MG PO (17:05)
[2023-08-30 17:18] LABS: Urine Albumin Negative (Neg - Trace); Urine Bilirubin Negative (Negative); Urine Character Clear (Clear); Urine Color Yellow; Urine Glucose 3+ (Negative); Urine Ketone Negative (Negative); Urine Leukocyte Negative (Negative); Urine Nitrite Negative (Negative); Urine Occult Blood Negative (Negative); Urine Specific Gravity 1.015 (<1.030); Urine Urobilinogen Negative (Neg - 1+)
[2023-08-30] MEDS: PROZAC 40 MG PO (22:33)
[2023-08-30] MEDS: REMERON 15 MG PO (22:34)
[2023-08-30] MEDS: PROSCAR 5 MG PO (22:34)
[2023-08-30] MEDS: FLOMAX 0.400000000000000022 MG PO (22:34)
[2023-08-31] MEDS: ULTRAM 50 MG PO ×2 (00:19→08:47)
[2023-08-31 03:38] VITALS: BP 127/53
[2023-08-31] MEDS: DILAUDID 0.25 MG IV (03:50)
[2023-08-31] MEDS: SYNTHROID 112 MCG PO (03:54)
[2023-08-31 06:00] VITALS: BMI 40.9
[2023-08-31 07:30] VITALS: BP 146/70
[2023-08-31 07:41] LABS: Blood Urea Nitrogen 42 mg/dl (9-20); Calcium 8.5 mg/dl (8.4-10.2); Carbon Dioxide 30 mmol/L (22-30); Chloride 101 mmol/L (98-107); Estimated Creatinine Clearance 50 ml/min; Glucose 123 mg/dl (70-99); Magnesium 2.5 mg/dl (1.6-2.3); Potassium 3.7 mmol/L (3.5-5.1); Sodium 138 mmol/L (135-145); eGFR 45.91
--- NOTE | 2023-08-31 07:43 | W.PN.HOSP.TC ---
Addendum entered and electronically signed by Earnest Lizarraga MD 08/31/23 14:30:
ZA on CKD
Original Note:
Today's Communication/Plan
-
IV Lasix. Colchicine and oral steroids.
Assessment / Plan
Assessment / Plan
Physical exam:
General: Acutely ill
HEENT: Normocephalic, Atraumatic and Moist Mucous Membranes
Respiratory: Coarse crackles bilateral; Negative Wheezes, Rales or Rhonchi
Cardiac: Irregular rate and rhythm and S1/S2
GI: Soft, Nontender and Nondistended
Musculoskeletal: Bilateral edema. Both knees are swollen but no erythema or warmth and amenable to flexion and extension. No Clubbing, No Cyanosis
Neuro: Awake, Alert and Oriented
Psych: Calm
A/P:
Acute hypoxic respiratory insufficiency due to Acute on chronic diastolic heart failure--> IV diuretics of Lasix 80 mg IV BID, monitor strict I/O, monitor daily weight, monitor renal function and electrolytes, reviewed latest echocardiogram on our
system, continue guideline-directed medical therapy for heart failure (GDMT), fluid restriction, salt restriction, heart failure education, follow up clinical response. Cardiology consult appreciated. (HbA1c ordered by cardio and it is 5.8).
Discussed with cardiology today.
Gouty attack on lower extremities--> continue colchicine 0.6 mg twice a day, continue prednisone but titrate to 20 mg twice a day rather than NSAIDs since he is on both antiplatelets and anticoagulation, continue with Dilaudid, check uric acid and
it is 10. No need for ultrasound of the legs since he is consistently on anticoagulation. Unfortunately gout can be exacerbated by diuresis but he definitely needs it at this point.
Fever, low-grade ---> likely from gout but rule out other infectious etiology obtain blood cultures and urinalysis. Urinalysis unremarkable blood cultures no growth blood pending.
Persistent A.fib-->continue BB and Pradaxa.
CAD--> continue Plavix and Pradaxa due to overlapping stents to LAD back in June 2023.
Leukocytosis--> reactive versus infectious. Afebrile and not localizing symptoms of infection. Could be related to gout.
CKD--> component of cardiorenal syndrome. Avoid nephrotoxics, cont to monitor while diurese, creatinine 1.5 upon admission. Creatinine down to 1.3 today with diuresis.
HTN--> cont current anti-hypertensives and adjust meds according to BP
Morbid obesity--> affect all spheres of care, might benefit from OP bariatric surgery if candidate.
DVT proph-Pradaxa
Full Code
Total time spent on today's encounter was 52 minutes which included time spent in counseling the patient/family regarding diagnosis and treatment plan as listed above, goals of care, and symptom management. Case was discussed with nursing staff,
specialists, and care coordinators/case management. All labs and imaging personally reviewed by me. Remainder the time spent in detailed review of previous records, lab data, imaging, and other medical provider documentation.
Anticipated Discharge: > 48 hours
Subjective/Interval History
-
Date of Service: August 31, 2023
Patient pain is back mainly on his right knee. Less shortness of breath but on supplemental oxygen. Still with significant peripheral edema.
Objective Data
-
Labs:
Laboratory Results
08/31/23
06:48
Sodium 138
Potassium 3.7
Chloride 101
Carbon Dioxide 30
BUN 42 H
Creatinine 1.5 H
Glucose 123 H
Calcium 8.5
Vital Signs:
Vital Signs
Temp Pulse Resp BP Pulse Ox
97.4 F 68 18 127/53 96
08/31/23 03:38 08/31/23 03:38 08/31/23 03:38 08/31/23 03:38 08/31/23 03:38
I&O
08/30/23 08/31/23 09/01/23
06:59 06:59 06:59
Intake Total 1260 / 1260 1560 / 1560
Output Total 2250 / 2250 2600 / 2600
Balance -990 / -990 -1040 / -1040
--- NOTE | 2023-08-31 07:54 | W.PN.CD ---
Today's Communication / Plan
-
continue diuresis
wean oxygen
continue rx for gout
Impression / Plan
-
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
Department with complaints of weakness. He has a weight gain, elevated proBNP, and worsening lower extremity edema. This is all consistent with acute on chronic heart failure.
HFpEF, acute on chronic:
-echo 04/25/23, limited study: Normal left ventricular size and systolic function without regional wall motion abnormality. Cannot comment on right ventricular size, but function appears normal. Aortic sclerosis. Mild pulmonary hypertension.
-Continue diuresis with furosemide 80 mg IV twice daily weight continues to come down goal weight ~280 lbs.
-[facility] 06/2023: LVEDP = 24 mmHg, PCWP = 25 mmHg at 134.3 kg
-Continue spironolactone and Farxiga- new this admission
-in the past has had ZA with Farxiga but in the setting of metolazone so hopefully he will tolerate
Permanent atrial fibrillation:
-Rate controlled- continue metoprolol
-continue Pradaxa for OAC
CAD:
-Stable without chest pain
-Overlapping stents to LAD (06/2023) on DAPT (clopidogrel and dabigatran)
-Continue atorvastatin 40 mg, goal LDL <55
Gout:
-predates admission and diuresis
-treatment as per medicine
CKD3a, follow with diuresis
Anemia of chronic disease
Moderate pulmonary HTN by cardiac cath 06/2023
COPD
Chronic lymphedema, he would benefit from compression
Physical Exam
Vital Signs/Labs
Vital Signs
Temp Pulse Resp BP Pulse Ox
97.4 F 68 18 127/53 96
08/31/23 03:38 08/31/23 03:38 08/31/23 03:38 08/31/23 03:38 08/31/23 03:38
08/30/23 08/31/23 09/01/23
06:59 06:59 06:59
Actual Weight 129.359 kg
08/29/23 07:07
08/31/23 06:48
Magnesium 2.5 mg/dl (1.6-2.3) H 08/31/23 06:48
08/28/23
05:00
Hhw-T-Femdxyfdymp Pept 3730
Physical Exam
Constitutional: No acute distress
Cardiovascular: JVD pressure is normal, Systolic murmur absent, Rhythm/rate is irregular and Pedal edema present
Respiratory: Respiratory effort normal, Lungs clear to auscul., Wheeze Absent, Crackles Absent and Rhonchi Absent
Neuro/Psych: AO x 3
Other: Other (right knee tender to touch but not red or hot)
Data Reviewed
-
Date of Service: August 31, 2023
Medical Tests (PFT, Pathology etc): Discussed with Physician (continue diuresis)
[2023-08-31] MEDS: ALDACTONE 25 MG PO (08:29)
[2023-08-31] MEDS: FOLVITE 1 MG PO (08:29)
[2023-08-31] MEDS: FARXIGA 10 MG PO (08:29)
[2023-08-31] MEDS: COLCHICINE 0.599999999999999978 MG PO ×2 (08:29→21:02)
[2023-08-31] MEDS: PRADAXA 150 MG PO ×2 (08:29→21:01)
[2023-08-31] MEDS: LOPRESSOR 25 MG PO ×2 (08:29→21:02)
[2023-08-31] MEDS: APRESOLINE 25 MG PO ×3 (08:29→21:02)
[2023-08-31] MEDS: PLAVIX 75 MG PO (08:30)
[2023-08-31] MEDS: DELTASONE 20 MG PO ×2 (08:30→21:01)
[2023-08-31] MEDS: LASIX 80 MG IV ×2 (08:30→17:00)
[2023-08-31] MEDS: DESENEX/MITRAZOL/ZEASORB 1 APPLIC TOPICAL ×2 (08:31→21:06)
[2023-08-31] MEDS: STRIVERDI RESPIMAT 2 PUFF INH (08:39)
--- NOTE | 2023-08-31 09:49 | PN.CDI ---
CDI
- -
CDI:
Physician Documentation Request
Admit Date: 08/28/23 08:44
Dear Doctor Zia,
Patient admitted for acute heart failure exacerbation.
Laboratory Tests
08/29/23 08/30/23
07:07 07:40
Creatinine 1.3 1.6 H
Clarify which of the following accurately represents the patient's renal status:
ZA on CKD
Rise in creatinine
Other
Criteria for ZA*
1 Increase in serum creatinine by > or = to 0.3 mg/dL (> or = to 26.5 micromol/L) within 48 hours, OR
2 Increase in serum creatinine to > or = to 1.5 times baseline, which is known or presumed to have occurred within 7 days, OR
3 Urine volume < 0.5 nL/kg/hour for six hours
Use of terms such as suspected, likely, concern for, or probable (associated with a specific diagnosis that is being evaluated, monitored, or treated as if it exists) are acceptable and can be coded in the inpatient setting, when documented at the
time of discharge.
Thank you,
Taty Hogue RN, BSN
CDI Specialist
Available via [place] text
Please use your independent medical judgment in providing your response.
*Source: Kidney Disease: Improving Global Outcomes (KDIGO) 2012
[2023-08-31 11:00] VITALS: BP 131/65
[2023-08-31 16:00] VITALS: BP 139/77
[2023-08-31] MEDS: LIPITOR 40 MG PO (17:49)
[2023-08-31 19:36] VITALS: BP 158/73
[2023-08-31] MEDS: PROZAC 40 MG PO (21:01)
[2023-08-31] MEDS: REMERON 15 MG PO (21:01)
[2023-08-31] MEDS: FLOMAX 0.400000000000000022 MG PO (21:01)
[2023-08-31] MEDS: PROSCAR 5 MG PO (21:02)
[2023-08-31 23:49] VITALS: BP 148/79
[2023-09-01 04:00] VITALS: BP 168/91
[2023-09-01 04:41] VITALS: BMI 41.1
[2023-09-01] MEDS: SYNTHROID 112 MCG PO (06:26)
[2023-09-01 07:00] VITALS: BP 164/79
[2023-09-01] MEDS: LASIX 80 MG IV ×2 (07:47→15:52)
[2023-09-01] MEDS: ULTRAM 50 MG PO ×2 (07:48→14:06)
[2023-09-01] MEDS: FOLVITE 1 MG PO (07:48)
[2023-09-01] MEDS: PRADAXA 150 MG PO ×2 (07:48→21:00)
[2023-09-01] MEDS: PLAVIX 75 MG PO (07:48)
[2023-09-01] MEDS: FARXIGA 10 MG PO (07:48)
[2023-09-01] MEDS: APRESOLINE 25 MG PO ×3 (07:48→21:12)
[2023-09-01] MEDS: COLCHICINE 0.599999999999999978 MG PO ×2 (07:48→21:00)
[2023-09-01] MEDS: ALDACTONE 25 MG PO (07:49)
[2023-09-01] MEDS: DELTASONE 20 MG PO ×2 (07:49→21:00)
[2023-09-01] MEDS: DESENEX/MITRAZOL/ZEASORB 1 APPLIC TOPICAL ×2 (07:49→21:13)
[2023-09-01] MEDS: LOPRESSOR 25 MG PO ×2 (07:49→21:00)
--- NOTE | 2023-09-01 07:49 | W.PN.CD ---
Today's Communication / Plan
-
Continue diuresis
Impression / Plan
-
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
Department with complaints of weakness. He has a weight gain, elevated proBNP, and worsening lower extremity edema. This is all consistent with acute on chronic heart failure.
HFpEF, acute on chronic:
-echo 04/25/23, limited study: Normal left ventricular size and systolic function without regional wall motion abnormality. Cannot comment on right ventricular size, but function appears normal. Aortic sclerosis. Mild pulmonary hypertension.
-Continue diuresis with furosemide 80 mg IV twice daily weight continues to come down goal weight ~280 lbs.
-RHC 06/2023: LVEDP = 24 mmHg, PCWP = 25 mmHg at 134.3 kg
-Continue spironolactone and Farxiga- new this admission
-in the past has had ZA with Farxiga but in the setting of metolazone so hopefully he will tolerate - Cr is improving
Permanent atrial fibrillation:
-Rate controlled- continue metoprolol
-continue Pradaxa for OAC
CAD:
-Stable without chest pain
-Overlapping stents to LAD (06/2023) on DAPT (clopidogrel and dabigatran)
-Continue atorvastatin 40 mg, goal LDL <55
Gout:
-predates admission and diuresis
-treatment as per medicine
CKD3a, follow with diuresis
Anemia of chronic disease
Moderate pulmonary HTN by cardiac cath 06/2023
COPD
Chronic lymphedema, he would benefit from compression
Physical Exam
Vital Signs/Labs
Vital Signs
Temp Pulse Resp BP Pulse Ox
97.4 F 65 20 168/91 93
09/01/23 04:00 09/01/23 04:00 09/01/23 04:00 09/01/23 04:00 09/01/23 04:00
08/31/23 09/01/23 09/02/23
06:59 06:59 06:59
Actual Weight 129.359 kg 129.812 kg
08/29/23 07:07
Magnesium 2.5 mg/dl (1.6-2.3) H 08/31/23 06:48
08/28/23
05:00
Tyt-G-Zyxopvooglz Pept 3730
Physical Exam
Constitutional: No acute distress and Comfortable
EENT: Anicteric and Moist mucous membranes
Cardiovascular: Rhythm/rate is irregular, JVD present and Systolic murmur present
Respiratory: Respiratory effort normal and Lungs clear to auscul.
GI: Soft and Non tender
Neuro/Psych: Alert and AO x 3
Data Reviewed
-
Date of Service: September 01, 2023
Medical Decision Making: Reviewed Test Results and Independent Historian Assessment
EKG: Tracing Personally Visualized and interpreted
Echo: Report Reviewed by me
Labs: Labs Reviewed by me
Old Records: Reviewed
[2023-09-01] MEDS: STRIVERDI RESPIMAT 2 PUFF INH (08:16)
[2023-09-01 08:42] LABS: Blood Urea Nitrogen 50 mg/dl (9-20); Calcium 8.2 mg/dl (8.4-10.2); Carbon Dioxide 29 mmol/L (22-30); Chloride 101 mmol/L (98-107); Estimated Creatinine Clearance 54 ml/min; Glucose 114 mg/dl (70-99); Potassium 3.8 mmol/L (3.5-5.1); Sodium 137 mmol/L (135-145); eGFR 49.87
--- NOTE | 2023-09-01 09:24 | W.PN.HOSP.TC ---
Today's Communication/Plan
-
IV Lasix. Oral steroids.
Assessment / Plan
Assessment / Plan
Physical exam:
General: Acutely ill
HEENT: Normocephalic, Atraumatic and Moist Mucous Membranes
Respiratory: Coarse crackles bilateral; Negative Wheezes, Rales or Rhonchi
Cardiac: Irregular rate and rhythm and S1/S2
GI: Soft, Nontender and Nondistended
Musculoskeletal: Bilateral edema but decreasing. Both knees are swollen but no erythema or warmth and amenable to flexion and extension. No Clubbing, No Cyanosis
Neuro: Awake, Alert and Oriented, no gross neuro-deficits
Psych: Calm
A/P:
Acute hypoxic respiratory insufficiency due to Acute on chronic diastolic heart failure--> IV diuretics of Lasix 80 mg IV BID, monitor strict I/O, monitor daily weight, monitor renal function and electrolytes, reviewed latest echocardiogram on our
system, continue guideline-directed medical therapy for heart failure (GDMT), fluid restriction, salt restriction, heart failure education, follow up clinical response. Cardiology consult appreciated. (HbA1c ordered by cardio and it is 5.8).
Gouty attack on lower extremities--> continue colchicine 0.6 mg twice a day, continue prednisone but titrate to 20 mg twice a day rather than NSAIDs since he is on both antiplatelets and anticoagulation, continue with Dilaudid, check uric acid and
it is 10. No need for ultrasound of the legs since he is consistently on anticoagulation. Unfortunately gout can be exacerbated by diuresis but he definitely needs it at this point. Right knee x-ray no fractures and arthritis and mild effusion
present (no evidence of septic arthritis).
Fever, low-grade ---> likely from gout but rule out other infectious etiology obtain blood cultures and urinalysis. Urinalysis unremarkable blood cultures no growth.
Permanent A.fib-->continue BB and Pradaxa.
CAD--> continue Plavix and Pradaxa due to overlapping stents to LAD back in June 2023.
Leukocytosis--> reactive versus infectious. Not localizing signs of infection. Likely related to gout.
ZA on CKD--> component of cardiorenal syndrome. Avoid nephrotoxics, cont to monitor while diurese, creatinine 1.5 upon admission. Creatinine down to 1.4 today with diuresis.
HTN--> cont current anti-hypertensives and adjust meds according to BP
Morbid obesity--> affect all spheres of care, might benefit from OP bariatric surgery if candidate.
DVT proph-Pradaxa
Full Code
Total time spent on today's encounter was 52 minutes which included time spent in counseling the patient/family regarding diagnosis and treatment plan as listed above, goals of care, and symptom management. Case was discussed with nursing staff,
specialists, and care coordinators/case management. All labs and imaging personally reviewed by me. Remainder the time spent in detailed review of previous records, lab data, imaging, and other medical provider documentation.
Anticipated Discharge: 24 - 48 hours
Subjective/Interval History
-
Date of Service: September 01, 2023
Patient feels less short of breath overall. Pain is better today in his knee.
Objective Data
-
Labs:
Laboratory Results
09/01/23
06:54
Sodium 137
Potassium 3.8
Chloride 101
Carbon Dioxide 29
BUN 50 H
Creatinine 1.4 H
Glucose 114 H
Calcium 8.2 L
Vital Signs:
Vital Signs
Temp Pulse Resp BP Pulse Ox
97.6 F 60 16 168/91 97
09/01/23 07:00 09/01/23 08:21 09/01/23 08:21 09/01/23 07:49 09/01/23 08:21
I&O
08/31/23 09/01/23 09/02/23
06:59 06:59 06:59
Intake Total 1560 / 1560 1080 / 1080
Output Total 2600 / 2600 2900 / 2900
Balance -1040 / -1040 -1820 / -1820
Review of Systems
-
All other systems: Reviewed and negative
[2023-09-01 11:00] VITALS: BP 150/78
--- NOTE | 2023-09-01 13:38 | CM ---
Spoke with patient bedside.
Continue oxygen weaning, room air today.
IV diuresis.
PT recommending skilled rehab.
Discussed facilities patient accepted to with patient.
Plan: skilled rehab when medically stable. no auth required.
[2023-09-01] MEDS: TYLENOL 650 MG PO (14:06)
[2023-09-01 15:00] VITALS: BP 143/94
[2023-09-01] MEDS: LIPITOR 40 MG PO (15:53)
[2023-09-01 19:58] VITALS: BP 146/68
[2023-09-01] MEDS: FLOMAX 0.400000000000000022 MG PO (21:12)
[2023-09-01] MEDS: PROZAC 40 MG PO (21:12)
[2023-09-01] MEDS: PROSCAR 5 MG PO (21:12)
[2023-09-01] MEDS: REMERON 15 MG PO (21:12)
[2023-09-01 23:56] VITALS: BP 158/90
[2023-09-02] VITALS (8 sets, daily range): BP systolic 128–159; BP diastolic 53–91; PULSE 51–54; O2SAT 93–96; BMI 40.6
[2023-09-02] MEDS: SYNTHROID 112 MCG PO (06:00)
[2023-09-02] MEDS: LASIX 80 MG IV ×2 (07:35→15:01)
[2023-09-02] MEDS: FARXIGA 10 MG PO (07:36)
[2023-09-02] MEDS: ALDACTONE 25 MG PO (07:36)
[2023-09-02] MEDS: PRADAXA 150 MG PO ×2 (07:36→21:05)
[2023-09-02] MEDS: COLCHICINE 0.599999999999999978 MG PO ×2 (07:36→21:06)
[2023-09-02] MEDS: LOPRESSOR 25 MG PO ×2 (07:36→21:05)
[2023-09-02] MEDS: APRESOLINE 25 MG PO ×3 (07:36→21:06)
[2023-09-02] MEDS: PLAVIX 75 MG PO (07:36)
[2023-09-02] MEDS: FOLVITE 1 MG PO (07:37)
[2023-09-02] MEDS: DELTASONE 20 MG PO (07:37)
[2023-09-02] MEDS: ULTRAM 50 MG PO (07:37)
[2023-09-02] MEDS: DESENEX/MITRAZOL/ZEASORB 1 APPLIC TOPICAL ×2 (07:37→21:07)
[2023-09-02] MEDS: STRIVERDI RESPIMAT 2 PUFF INH (08:21)
--- NOTE | 2023-09-02 09:21 | W.PN.CD ---
Today's Communication / Plan
-
Continue diuresis. Creatinine is 1.2 today
Impression / Plan
-
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
Department with complaints of weakness. He has a weight gain, elevated proBNP, and worsening lower extremity edema. This is all consistent with acute on chronic heart failure.
HFpEF, acute on chronic:
-echo 04/25/23, limited study: Normal left ventricular size and systolic function without regional wall motion abnormality. Cannot comment on right ventricular size, but function appears normal. Aortic sclerosis. Mild pulmonary hypertension.
-Continue diuresis with furosemide 80 mg IV twice daily weight continues to come down goal weight ~280 lbs.
-C 06/2023: LVEDP = 24 mmHg, PCWP = 25 mmHg at 134.3 kg
-Continue spironolactone and Farxiga- new this admission
-in the past has had ZA with Farxiga but in the setting of metolazone so hopefully he will tolerate - Cr is improving
Permanent atrial fibrillation:
-Rate controlled- continue metoprolol
-continue Pradaxa for OAC
CAD:
-Stable without chest pain
-Overlapping stents to LAD (06/2023) on DAPT (clopidogrel and dabigatran)
-Continue atorvastatin 40 mg, goal LDL <55
Gout:
-predates admission and diuresis
-treatment as per medicine
CKD3a, follow with diuresis
Anemia of chronic disease
Moderate pulmonary HTN by cardiac cath 06/2023
COPD
Chronic lymphedema, he would benefit from compression
Physical Exam
Vital Signs/Labs
Vital Signs
Temp Pulse Resp BP Pulse Ox
97.6 F 60 16 159/71 96
09/02/23 07:44 09/02/23 08:24 09/02/23 08:24 09/02/23 07:44 09/02/23 08:59
09/01/23 09/02/23 09/03/23
06:59 06:59 06:59
Actual Weight 129.812 kg 128.48 kg
08/29/23 07:07
Magnesium 2.5 mg/dl (1.6-2.3) H 08/31/23 06:48
08/28/23
05:00
Zsc-E-Bycnrhsasgm Pept 3730
Physical Exam
Constitutional: No acute distress and Comfortable
EENT: Anicteric and Moist mucous membranes
Cardiovascular: Rhythm/rate is irregular, JVD present and Systolic murmur present
Respiratory: Respiratory effort normal and Lungs clear to auscul.
GI: Soft, Non tender and Normal bowel sounds
Neuro/Psych: Alert, Oriented and AO x 3
Data Reviewed
-
Date of Service: September 02, 2023
Medical Decision Making: Reviewed Test Results, Independent Historian Assessment and Test Interpretation
EKG: Tracing Personally Visualized and interpreted
Echo: Report Reviewed by me
Labs: Labs Reviewed by me
Old Records: Reviewed
--- NOTE | 2023-09-02 09:29 | W.PN.HOSP.TC ---
Today's Communication/Plan
-
IV Lasix. Titrate oral steroids.
Assessment / Plan
Assessment / Plan
Physical exam:
General: Acutely ill
HEENT: Normocephalic, Atraumatic and Moist Mucous Membranes
Respiratory: Coarse crackles bilateral; Negative Wheezes, Rales or Rhonchi
Cardiac: Irregular rate and rhythm and S1/S2
GI: Soft, Nontender and Nondistended
Musculoskeletal: Bilateral edema but decreasing. Both knees are swollen but no erythema or warmth and amenable to flexion and extension. No Clubbing, No Cyanosis
Neuro: Awake, Alert and Oriented, no gross neuro-deficits
Psych: Calm
A/P:
Acute hypoxic respiratory insufficiency due to Acute on chronic diastolic heart failure--> IV diuretics of Lasix 80 mg IV BID, monitor strict I/O, monitor daily weight, monitor renal function and electrolytes, reviewed latest echocardiogram on our
system, continue guideline-directed medical therapy for heart failure (GDMT), fluid restriction, salt restriction, heart failure education, follow up clinical response. Cardiology consult appreciated. (HbA1c ordered by cardio and it is 5.8).
Gouty attack on lower extremities--> continue colchicine 0.6 mg twice a day, continue prednisone 30 bid-->20 bid-->titrate to 15 mg twice a day today (steroids rather than NSAIDs since he is on both antiplatelets and anticoagulation), continue with
Dilaudid, check uric acid and it is 10. No need for ultrasound of the legs since he is consistently on anticoagulation. Unfortunately gout can be exacerbated by diuresis but he definitely needs it at this point. Right knee x-ray no fractures and
arthritis and mild effusion present (no evidence of septic arthritis).
Fever, low-grade ---> likely from gout but rule out other infectious etiology obtain blood cultures and urinalysis. Urinalysis unremarkable blood cultures no growth.
Permanent A.fib-->continue BB and Pradaxa.
CAD--> continue Plavix and Pradaxa due to overlapping stents to LAD back in June 2023.
Leukocytosis--> reactive versus infectious. Not localizing signs of infection. Likely related to gout.
ZA on CKD--> component of cardiorenal syndrome. Avoid nephrotoxics, cont to monitor while diurese, creatinine 1.5 upon admission. Creatinine down to 1.2 today with diuresis.
HTN--> cont current anti-hypertensives and adjust meds according to BP
Morbid obesity--> affect all spheres of care, might benefit from OP bariatric surgery if candidate.
DVT proph-Pradaxa
Full Code
Anticipated Discharge: 24 - 48 hours
Subjective/Interval History
-
Date of Service: September 02, 2023
Patient has less shortness of breath. Pain in his knee is improving
Objective Data
-
Labs:
Laboratory Results
09/02/23
07:22
Sodium Pending
Potassium Pending
Chloride Pending
Carbon Dioxide Pending
BUN Pending
Creatinine Pending
Glucose Pending
Calcium Pending
Vital Signs:
Vital Signs
Temp Pulse Resp BP Pulse Ox
97.6 F 60 16 159/71 96
09/02/23 07:44 09/02/23 08:24 09/02/23 08:24 09/02/23 07:44 09/02/23 08:59
I&O
09/01/23 09/02/23 09/03/23
06:59 06:59 06:59
Intake Total 1320 / 1320 1620 / 1620
Output Total 2900 / 2900 750 / 750
Balance -1580 / -1580 870 / 870
Review of Systems
-
All other systems: Reviewed and negative
[2023-09-02 09:33] LABS: Blood Urea Nitrogen 55 mg/dl (9-20); Calcium 8.3 mg/dl (8.4-10.2); Carbon Dioxide 29 mmol/L (22-30); Chloride 100 mmol/L (98-107); Estimated Creatinine Clearance 63 ml/min; Glucose 128 mg/dl (70-99); Potassium 3.9 mmol/L (3.5-5.1); Sodium 138 mmol/L (135-145); eGFR > 60.00
--- NOTE | 2023-09-02 12:43 | CM ---
Addendum entered by Tonia Thomson 09/02/23 13:37:
Spoke with patients friend Stephan.
He would like [facility].
[facility] and [facility] are the first choices.
Stephan concerned no therapy this weekend, will [facility] PT/OT see patient.
Original Note:
Patient seen bedside.
Patient with questions re post d/c rehab.
patient accepted at [facility], [facility], and [facility] all pending bed availability on day of d/c.
Continues IV diuresis.
Oxygen 2liters/min.
PT/OT recommending skilled rehab.
Plan: Skilled rehab when stable, no auth needed. 1st choice [facility].
[2023-09-02] MEDS: LIPITOR 40 MG PO (17:18)
[2023-09-02] MEDS: DELTASONE 15 MG PO (21:02)
[2023-09-02] MEDS: PROZAC 40 MG PO (21:03)
[2023-09-02] MEDS: REMERON 15 MG PO (21:05)
[2023-09-02] MEDS: FLOMAX 0.400000000000000022 MG PO (21:06)
[2023-09-02] MEDS: PROSCAR 5 MG PO (21:06)
[2023-09-02] MEDS: DESYREL 12.5 MG PO (21:33)
[2023-09-03 03:09] VITALS: BP 116/92
[2023-09-03 04:15] VITALS: BMI 40.4
[2023-09-03] MEDS: SYNTHROID 112 MCG PO (05:34)
[2023-09-03 08:00] VITALS: BP 144/73
[2023-09-03 08:12] LABS: Blood Urea Nitrogen 57 mg/dl (9-20); Calcium 8.2 mg/dl (8.4-10.2); Carbon Dioxide 33 mmol/L (22-30); Chloride 99 mmol/L (98-107); Estimated Creatinine Clearance 63 ml/min; Glucose 110 mg/dl (70-99); Potassium 4.2 mmol/L (3.5-5.1); Sodium 139 mmol/L (135-145); eGFR > 60.00
[2023-09-03] MEDS: STRIVERDI RESPIMAT 2 PUFF INH (08:23)
--- NOTE | 2023-09-03 08:35 | W.PN.CD ---
Today's Communication / Plan
-
continue iv lasix
wean oxygen
Impression / Plan
-
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
Department with complaints of weakness. He has a weight gain, elevated proBNP, and worsening lower extremity edema. This is all consistent with acute on chronic heart failure.
HFpEF, acute on chronic:
-echo 04/25/23, limited study: Normal left ventricular size and systolic function without regional wall motion abnormality. Cannot comment on right ventricular size, but function appears normal. Aortic sclerosis. Mild pulmonary hypertension.
-Continue diuresis with furosemide 80 mg IV twice daily weight continues to come down goal weight ~280 lbs. Today at 281lbs
-likely transition to po torsemide in the am
-[facility] 06/2023: LVEDP = 24 mmHg, PCWP = 25 mmHg at 134.3 kg
-Continue spironolactone and Farxiga- new this admission
-in the past has had ZA with Farxiga but in the setting of metolazone so hopefully he will tolerate - Cr is improving with diuresis
Permanent atrial fibrillation:
-Rate controlled- continue metoprolol
-continue Pradaxa for OAC
CAD:
-Stable without chest pain
-Overlapping stents to LAD (06/2023) on DAPT (clopidogrel and dabigatran)
-Continue atorvastatin 40 mg, goal LDL <55
Gout:
-predates admission and diuresis
-treatment as per medicine
CKD3a, follow with diuresis
Anemia of chronic disease
Moderate pulmonary HTN by cardiac cath 06/2023
COPD
Chronic lymphedema, continue eleuterio
Subjective:
he is feeling so much better, knee improved, swelling improved, breathing improved
Physical Exam
Vital Signs/Labs
Vital Signs
Temp Pulse Resp BP Pulse Ox
97.6 F 65 14 144/73 96
09/03/23 08:00 09/03/23 08:25 09/03/23 08:25 09/03/23 08:00 09/03/23 08:25
09/02/23 09/03/23 09/04/23
06:59 06:59 06:59
Actual Weight 128.48 kg 127.6 kg
08/29/23 07:07
09/03/23 06:47
Magnesium 2.5 mg/dl (1.6-2.3) H 08/31/23 06:48
08/28/23
05:00
Cnf-V-Xzszgicxwkv Pept 3730
Physical Exam
Constitutional: No acute distress
Cardiovascular: JVD pressure is normal, Rhythm/rate is irregular, Pedal edema present (trace b/l), Systolic murmur present, Diastolic murmur present and Other (eleuterio wraps in place)
Respiratory: Respiratory effort normal, Lungs clear to auscul., Wheeze Absent and Crackles Absent
Neuro/Psych: AO x 3
Data Reviewed
-
Date of Service: September 03, 2023
[2023-09-03] MEDS: FARXIGA 10 MG PO (09:41)
[2023-09-03] MEDS: PRADAXA 150 MG PO ×2 (09:41→20:12)
[2023-09-03] MEDS: ALDACTONE 25 MG PO (09:42)
[2023-09-03] MEDS: COLCHICINE 0.599999999999999978 MG PO ×2 (09:42→20:13)
[2023-09-03] MEDS: DELTASONE 15 MG PO (09:43)
[2023-09-03] MEDS: LOPRESSOR 25 MG PO ×2 (09:44→20:13)
[2023-09-03] MEDS: FOLVITE 1 MG PO (09:44)
[2023-09-03] MEDS: DESENEX/MITRAZOL/ZEASORB 1 APPLIC TOPICAL ×2 (09:44→20:14)
[2023-09-03] MEDS: APRESOLINE 25 MG PO ×3 (09:44→23:05)
[2023-09-03] MEDS: PLAVIX 75 MG PO (09:44)
[2023-09-03] MEDS: LASIX 80 MG IV ×2 (09:45→17:32)
--- NOTE | 2023-09-03 09:49 | W.PN.HOSP.TC ---
Today's Communication/Plan
-
IV Lasix. Taper oral steroids. Case management for discharge disposition
Assessment / Plan
Assessment / Plan
Physical exam:
General: Acutely ill
HEENT: Normocephalic, Atraumatic and Moist Mucous Membranes
Respiratory: Coarse crackles bilateral; Negative Wheezes, Rales or Rhonchi
Cardiac: Irregular rate and rhythm and S1/S2
GI: Soft, Nontender and Nondistended
Musculoskeletal: Bilateral edema but decreasing. Both knees are swollen but no erythema or warmth and amenable to flexion and extension. No Clubbing, No Cyanosis
Neuro: Awake, Alert and Oriented, no gross neuro-deficits
Psych: Calm
A/P:
Acute hypoxic respiratory insufficiency due to Acute on chronic diastolic heart failure--> IV diuretics of Lasix 80 mg IV BID, monitor strict I/O, monitor daily weight, monitor renal function and electrolytes, reviewed latest echocardiogram on our
system, continue guideline-directed medical therapy for heart failure (GDMT), fluid restriction, salt restriction, heart failure education, follow up clinical response. Cardiology consult appreciated. (HbA1c ordered by cardio and it is 5.8).
Patient wants to go to rehab. dba manager consult as well as PT OT for skilled rehab discharge disposition. Titrate oxygen down as able.
Gouty attack on lower extremities--> continue colchicine 0.6 mg twice a day, continue prednisone 30 bid-->20 bid-->15 mg twice a day-->titrate to 20mg daily (steroids rather than NSAIDs since he is on both antiplatelets and anticoagulation),
continue with Dilaudid, check uric acid and it is 10. No need for ultrasound of the legs since he is consistently on anticoagulation. Unfortunately gout can be exacerbated by diuresis but he definitely needs it at this point. Right knee x-ray no
fractures and arthritis and mild effusion present (no evidence of septic arthritis).
Fever, low-grade ---> likely from gout but rule out other infectious etiology obtain blood cultures and urinalysis. Urinalysis unremarkable blood cultures no growth.
Permanent A.fib-->continue BB and Pradaxa.
CAD--> continue Plavix and Pradaxa due to overlapping stents to LAD back in June 2023.
Leukocytosis--> reactive versus infectious. Not localizing signs of infection. Likely related to gout.
ZA on CKD--> component of cardiorenal syndrome. Avoid nephrotoxics, cont to monitor while diurese, creatinine 1.5 upon admission. Creatinine down to 1.2 today with diuresis.
HTN--> cont current anti-hypertensives and adjust meds according to BP
Morbid obesity--> affect all spheres of care, might benefit from OP bariatric surgery if candidate.
DVT proph-Pradaxa
Full Code
Anticipated Discharge: Within 24 hours
Subjective/Interval History
-
Date of Service: September 03, 2023
Patient feels better overall. Less shortness of breath. Less peripheral edema. Significant amount of less pain and able to ambulate to some degree. Still generalized weakness. Still on oxygen
Objective Data
-
Labs:
Laboratory Results
09/03/23
06:47
Sodium 139
Potassium 4.2
Chloride 99
Carbon Dioxide 33 H
BUN 57 H
Creatinine 1.2
Glucose 110 H
Calcium 8.2 L
Vital Signs:
Vital Signs
Temp Pulse Resp BP Pulse Ox
97.6 F 65 14 144/73 96
09/03/23 08:00 09/03/23 08:25 09/03/23 08:25 09/03/23 08:00 09/03/23 08:25
I&O
09/02/23 09/03/23 09/04/23
06:59 06:59 06:59
Intake Total 1620 / 1620 1500 / 1500 240 / 240
Output Total 750 / 750 2000 / 2000 1500 / 1500
Balance 870 / 870 -500 / -500 -1260 / -1260
[2023-09-03 11:30] VITALS: BP 125/60
--- NOTE | 2023-09-03 12:15 | CM ---
CM consult for dc planning- ADC <24 hours
Bedside meeting with pt and update on SNF referrals
Pt offered beds at [facility], [facility] and [place] pending bed availability
[facility] referral remains pending
IMM verbally reviewed- copy provided
Discharge Disposition- SNF
[2023-09-03] MEDS: DELTASONE 5 MG PO (12:35)
[2023-09-03 16:04] VITALS: BP 154/76
[2023-09-03] MEDS: LIPITOR 40 MG PO (17:33)
[2023-09-03 19:30] VITALS: BP 125/68
[2023-09-03] MEDS: REMERON 15 MG PO (23:05)
[2023-09-03] MEDS: FLOMAX 0.400000000000000022 MG PO (23:05)
[2023-09-03] MEDS: PROSCAR 5 MG PO (23:05)
[2023-09-03] MEDS: DESYREL 12.5 MG PO (23:05)
[2023-09-03] MEDS: PROZAC 40 MG PO (23:05)
[2023-09-03 23:20] VITALS: BP 148/80
[2023-09-04 03:20] VITALS: BP 152/68
[2023-09-04] MEDS: SYNTHROID 112 MCG PO (05:49)
[2023-09-04 06:00] VITALS: BMI 39.2
[2023-09-04 07:00] VITALS: BP 155/85
[2023-09-04 07:28] LABS: Hematocrit 39.4 % (39.0-52.0); Hemoglobin 12.3 g/dL (13.0-18.0)
--- NOTE | 2023-09-04 07:40 | W.PN.HOSP.TC ---
Today's Communication/Plan
-
Discharge planning today.
Assessment / Plan
Assessment / Plan
Physical exam:
General: No acute distress
HEENT: Normocephalic, Atraumatic and Moist Mucous Membranes
Respiratory: Coarse crackles bilateral; Negative Wheezes, Rales or Rhonchi
Cardiac: Irregular rate and rhythm and S1/S2
GI: Soft, Nontender and Nondistended
Musculoskeletal: Bilateral edema but decreasing. Both knees are less swollen and no erythema or warmth and amenable to flexion and extension. No Clubbing, No Cyanosis
Neuro: Awake, Alert and Oriented, no gross neuro-deficits
Psych: Calm
A/P:
Acute hypoxic respiratory insufficiency due to Acute on chronic diastolic heart failure--> IV diuretics of Lasix 80 mg IV BID, monitor strict I/O, monitor daily weight, monitor renal function and electrolytes, reviewed latest echocardiogram on our
system, continue guideline-directed medical therapy for heart failure (GDMT), fluid restriction, salt restriction, heart failure education, follow up clinical response. Cardiology consult appreciated. (HbA1c ordered by cardio and it is 5.8).
Patient wants to go to rehab. skating rink manager consult as well as PT OT for skilled rehab discharge disposition. Off oxygen today. Cardiology cleared for discharge today.
Gouty attack on lower extremities--> continue colchicine 0.6 mg twice a day, continue prednisone 30 bid-->20 bid-->15 mg twice a day-->titrate to 20mg daily for 3 more days (steroids rather than NSAIDs since he is on both antiplatelets and
anticoagulation), continue with Dilaudid, check uric acid and it is 10. No need for ultrasound of the legs since he is consistently on anticoagulation. Unfortunately gout can be exacerbated by diuresis but he definitely needs it at this point.
Right knee x-ray no fractures and arthritis and mild effusion present (no evidence of septic arthritis).
Fever, low-grade ---> likely from gout but rule out other infectious etiology obtain blood cultures and urinalysis. Urinalysis unremarkable blood cultures no growth.
Permanent A.fib-->continue BB and Pradaxa.
CAD--> continue Plavix and Pradaxa due to overlapping stents to LAD back in June 2023.
Leukocytosis--> reactive versus infectious. Not localizing signs of infection. Likely related to gout.
ZA on CKD--> component of cardiorenal syndrome. Avoid nephrotoxics, cont to monitor while diurese, creatinine 1.5 upon admission. Creatinine down to 1.2 today with diuresis.
HTN--> cont current anti-hypertensives and adjust meds according to BP
Morbid obesity--> affect all spheres of care, might benefit from OP bariatric surgery if candidate.
DVT proph-Pradaxa
Full Code
Anticipated Discharge: Today
Subjective/Interval History
-
Date of Service: September 04, 2023
Patient doing well today.
Objective Data
-
Labs:
Laboratory Results
09/04/23
05:58
Hgb 12.3 L
Hct 39.4
Sodium Pending
Potassium Pending
Chloride Pending
Carbon Dioxide Pending
BUN Pending
Creatinine Pending
Glucose Pending
Calcium Pending
Vital Signs:
Vital Signs
Temp Pulse Resp BP Pulse Ox
97.4 F 59 18 152/68 94
09/04/23 03:20 09/04/23 03:20 09/04/23 03:20 09/04/23 03:20 09/04/23 03:20
I&O
09/03/23 09/04/23 09/05/23
06:59 06:59 06:59
Intake Total 1500 / 1500 360 / 360
Output Total 1999 / 1999 4370 / 4370
Balance -500 / -500 -4010 / -4010
[2023-09-04 08:03] LABS: Blood Urea Nitrogen 52 mg/dl (9-20); Calcium 8.4 mg/dl (8.4-10.2); Carbon Dioxide 34 mmol/L (22-30); Chloride 98 mmol/L (98-107); Estimated Creatinine Clearance 53 ml/min; Glucose 87 mg/dl (70-99); Magnesium 2.7 mg/dl (1.6-2.3); Potassium 4.2 mmol/L (3.5-5.1); Sodium 137 mmol/L (135-145); eGFR 49.87
[2023-09-04 08:10] VITALS: BMI 39.2
[2023-09-04] MEDS: FARXIGA 10 MG PO (08:10)
[2023-09-04] MEDS: STRIVERDI RESPIMAT 2 PUFF INH (08:10)
[2023-09-04] MEDS: THERAGRAN 1 TABLET PO (08:11)
[2023-09-04] MEDS: ALDACTONE 25 MG PO (08:12)
[2023-09-04] MEDS: APRESOLINE 25 MG PO ×2 (08:12→16:06)
[2023-09-04] MEDS: COLCHICINE 0.599999999999999978 MG PO (08:12)
[2023-09-04] MEDS: FOLVITE 1 MG PO (08:12)
[2023-09-04] MEDS: PRADAXA 150 MG PO (08:13)
[2023-09-04] MEDS: DELTASONE 20 MG PO (08:13)
[2023-09-04] MEDS: LOPRESSOR 25 MG PO (08:14)
[2023-09-04] MEDS: PLAVIX 75 MG PO (08:15)
[2023-09-04] MEDS: LASIX 80 MG IV (08:15)
[2023-09-04] MEDS: DESENEX/MITRAZOL/ZEASORB 1 APPLIC TOPICAL (08:16)
--- NOTE | 2023-09-04 10:15 | W.PN.CD ---
Today's Communication / Plan
-
Move to PO Demedex 40 bid (none tonight)
Will need bmp in 1 and 3 weeks with new meds
Impression / Plan
-
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
Department with complaints of weakness. He has a weight gain, elevated proBNP, and worsening lower extremity edema. This is all consistent with acute on chronic heart failure.
HFpEF, acute on chronic:
- Diuresis goal weight ~280 lbs (127 kg)
- May have over shot diuresis => Today at 123.9 kg (272.6 pounds)
- Move to PO Demedex (hold tonight)
- Continue spironolactone and Farxiga- new this admission
- in the past has had ZA with Farxiga but in the setting of metolazone so hopefully he will tolerate - Cr is improving with diuresis
Permanent atrial fibrillation:
-Rate controlled- continue metoprolol
-continue Pradaxa for OAC
CAD:
-Stable without chest pain
-Overlapping stents to LAD (06/2023) on DAPT (clopidogrel and dabigatran)
-Continue atorvastatin 40 mg, goal LDL <55
Gout:
-predates admission and diuresis
-treatment as per medicine
CKD3a, follow with diuresis
Anemia of chronic disease
Moderate pulmonary HTN by cardiac cath 06/2023
COPD
Chronic lymphedema, continue eleuterio
Subjective:
Feels better
- RHC 06/2023: LVEDP = 24 mmHg, PCWP = 25 mmHg at 134.3 kg
- Echo 04/25/23, limited study: Normal left ventricular size and systolic function without regional wall motion abnormality. Cannot comment on right ventricular size, but function appears normal. Aortic sclerosis. Mild pulmonary hypertension.
Physical Exam
Vital Signs/Labs
Vital Signs
Temp Pulse Resp BP Pulse Ox
97.3 F 55 20 155/85 98
09/04/23 07:00 09/04/23 07:00 09/04/23 07:00 09/04/23 07:00 09/04/23 08:10
09/03/23 09/04/23 09/05/23
06:59 06:59 06:59
Actual Weight 127.6 kg 123.944 kg
09/04/23 05:58
09/04/23 05:58
Magnesium 2.7 mg/dl (1.6-2.3) H 09/04/23 05:58
08/28/23
05:00
Ony-[id number]-Qyyggxtoeri Pept [id number]
Physical Exam
Constitutional: No acute distress
EENT: Anicteric
Cardiovascular: Pedal edema is absent and Rhythm/rate is irregular
Respiratory: Respiratory effort normal and Lungs clear to auscul.
GI: Soft
Neuro/Psych: AO x 3
Data Reviewed
-
Date of Service: September 04, 2023
[2023-09-04 11:35] VITALS: BP 120/88
--- NOTE | 2023-09-04 12:03 | CM ---
Addendum entered by Tonia Thomson 09/04/23 14:22:
TC back from Stephan/POA he will contact [facility] and pay for WC van.
Addendum entered by Tonia Thomson 09/04/23 14:16:
Reviewed skilled facility costs with patient and he verbalized understanding and hopes to be home befere week 3 of skilled rehab.
Covid test negative.
Original Note:
Patient accepted at [facility] for today.
patient will require a Covid test.
patient will transport via WC van, left voice message for Stephan, primary contact/POA and await TCB.
Per [facility], since no secondary insurance, days 1-20 will be covered at 100%, days 21-100 would have a daily copay of $204.
Patient updated, will update POA.
Patient will require a Covid test.
[facility] (formerly [facility])
Report# [phone]
--- NOTE | 2023-09-04 12:40 | W.DCSUMMARY ---
Discharge Summary
Discharge Data
Date of Admission: 08/28/23
Date of Discharge: 09/04/23
-
Pending Results: No
Hospital Course
Patient 83 years old male with history of A-fib, CAD, CHF, COPD, hypertension, CKD, obesity, presented to hospital generalized weakness and shortness of breath and lower extremity edema. Patient was found to be in acute decompensated heart failure.
Cardiology consulted. Patient was aggressively diuresed. His weight went down to dry weight. He had negative balance throughout this hospital stay. Cardiology switch his diuretics to oral. Course complicated with gout and he was treated with
increased doses of colchicine and steroids taper due to the fact that he was on anticoagulants and antiplatelets. He will be kept on colchicine and finished a course of steroids for the next few days. Patient had x-rays of the right knee and no
fractures. Patient did well in terms of his gout attack and improved substantially. Patient participated PT and OT. It was felt that he would benefit from rehab. Patient is currently discharged to skilled facility today.
Discharge duration: 38 minutes
Discharge Plan
-
Patient Disposition: Residential/SNF
Discharge Diagnosis/Procedures: Acute on chronic diastolic congestive heart failure. Gout attack. Permanent atrial fibrillation. Coronary artery disease. Chronic kidney disease. Chronic lymphedema. Pulmonary hypertension. Anemia of chronic
disease.
Condition: Fair
Diet: Low Cholesterol, Low Sodium and Restrict fluids to 48 oz
Blood Work: Please PCP to order CBC, BMP within 1 week.
Specialty Instructions: Weigh Daily- Call MD for wt gain/loss 3 lbs overnight/5 lbs in 1 week
Instructions: *CBC Heart Failure Instructions
Referrals:
Rajiv Pavon MD [Family Provider] - in less than 1 week
Max Spivey MD [Active] - in two to three weeks
Prescriptions:
New
prednisone 20 mg Tablet
20 mg PO DAILY 3 Days Qty: 3 0RF
spironolactone 25 mg Tablet
25 mg PO DAILY 30 Days Qty: 30 0RF
dapagliflozin propanediol 10 mg Tablet
10 mg PO DAILY 30 Days Qty: 30 0RF
Continued
atorvastatin 40 MG tablet
40 mg PO QPM
dabigatran etexilate [Pradaxa] 150 MG capsule
150 mg PO BID
tamsulosin 0.4 MG capsule
0.4 mg PO HS
finasteride 5 MG tablet
5 mg PO HS
metoprolol tartrate 25 MG tablet
25 mg PO BID
levothyroxine 112 MCG tablet
112 mcg PO DAILY
fluoxetine [Prozac] 40 MG capsule
40 mg PO HS
albuterol sulfate [ProAir HFA] 90 mcg/actuation Hfa Aerosol Inhaler
2 inh INHALATION R BIDPRN PRN (Reason: SOB )
folic acid 1 mg Tablet
1 mg PO DAILY
potassium chloride [Klor-Con] 20 mEq packet
20 meq PO BID@0800,1600
hydralazine 25 mg Tablet
25 mg PO TID Qty: 1 0RF
multivitamin with folic acid [Tab-A-Rikki] 400 mcg Tablet
1 tab PO TuTh@0800 Qty: 1 0RF
clopidogrel 75 mg Tablet
75 mg PO DAILY Qty: 1 0RF
Striverdi Respimat 2.5 mcg/actuation Mist
2.5 mcg inhalation R DAILY Qty: 4 0RF
mirtazapine 15 mg Tablet
15 mg PO HS
Rx Instructions:
stop 45mg
tramadol 50 mg Tablet
50 mg PO Q6HPRN PRN (Reason: moderate pain) Qty: 4 0RF
Changed
colchicine 0.6 mg Tablet
0.3 mg PO DAILY Qty: 1 0RF
Held
torsemide 20 mg tablet
40 mg PO BID@0800,1600
Hold Instructions: Resume on 09/05/23.
Discharge Orders:
Discharge Patient (As Directed); Ordered 09/04/23
Ordered By: Earnest Lizarraga
Discharge Date and Time
Print Language: [place]
[2023-09-04 13:19] LABS: COVID-19 Antigen Negative (Negative)
[2023-09-04 16:05] VITALS: BP 151/77
[2023-09-04] MEDS: LIPITOR 40 MG PO (16:06)
== END 2023-09-04 16:33 | DRG 291 ==
LOC: 4 WEST ACU 08:44
PROVIDERS: Emergency Medicine; ADMITTING PHYSICIAN Hospitalist; CONSULT PHYSICIAN Internal Medicine Cardiovascular Disease; EMERGENCY PHYSICIAN Emergency Medicine; FAMILY PHYSICIAN Internal Medicine
DX: I13.0 Hypertensive heart and chronic kidney disease with heart failure and stage 1 through stage 4 chronic kidney disease, or unspecified chronic kidney disease (principal); I50.33 Acute on chronic diastolic (congestive) heart failure; I48.21 Permanent atrial fibrillation; N17.9 Acute kidney failure, unspecified; R09.02 Hypoxemia; I25.10 Atherosclerotic heart disease of native coronary artery without angina pectoris; E78.00 Pure hypercholesterolemia, unspecified; N18.32 Chronic kidney disease, stage 3b; J44.9 Chronic obstructive pulmonary disease, unspecified; R06.89 Other abnormalities of breathing; I89.0 Lymphedema, not elsewhere classified; M10.9 Gout, unspecified; D63.8 Anemia in other chronic diseases classified elsewhere; I27.20 Pulmonary hypertension, unspecified; E03.9 Hypothyroidism, unspecified; D72.829 Elevated white blood cell count, unspecified; E66.01 Morbid (severe) obesity due to excess calories; Z11.52 Encounter for screening for COVID-19; Z87.891 Personal history of nicotine dependence; Z98.1 Arthrodesis status; Z79.890 Hormone replacement therapy; Z79.02 Long term (current) use of antithrombotics/antiplatelets; Z79.51 Long term (current) use of inhaled steroids; Z68.39 Body mass index [BMI] 39.0-39.9, adult; Z86.73 Personal history of transient ischemic attack (TIA), and cerebral infarction without residual deficits; Z79.52 Long term (current) use of systemic steroids
CPT/HCPCS: 71046; 73560; 80048; 80053; 81003; 83036; 83735; 83880; 84484; 84550; 85014; 85018; 85025; 87040; 87811; 93005; 94640; 96374; 97163; 97167; 97530; 99285

== ENCOUNTER 2023-12-10 15:07 | Inpatient (IN) | payer MEDICARE, SELFPAY ==
[2023-12-10 11:54] VITALS: BP 128/77
[2023-12-10 12:25] LABS: % Basophils 0.2 % (0-2); % Eosinophils 0.1 % (0-6); % Immature Granulocytes 0.9 % (0-0.5); % Lymphocytes 8.6 % (20.5-51.1); % Monocytes 5.5 % (1.7-9.3); % Neutrophils 84.7 % (42.2-75.2); Absolute Immature Granulocytes 0.1 10^3/uL (0-0.05); Absolute Lymphocytes 0.8 10^3/uL (1.2-3.4); Absolute Monocytes 0.5 10^3/uL (0.1-0.6); Absolute Neutrophils 8.1 10^3/uL (1.4-6.5); Hematocrit 38.1 % (39.0-52.0); Hemoglobin 12.9 g/dL (13.0-18.0); Mean Corp Hgb Conc. 33.9 g/dL (33.0-37.0); Mean Corpuscular Hgb 30.6 pg (27.0-31.0); Mean Corpuscular Volume 90.3 fL (80.0-94.0); Nucleated Red Blood Cells % 0 % (-); Platelet Count 297 10^3/uL (130-400); Red Blood Cell Count 4.22 10^6/uL (4.70-6.10); Red Cell Dist. Width 14.3 % (11.5-14.5); White Blood Cell Count 9.6 10^3/uL (4.8-10.8)
[2023-12-10 12:39] LABS: ALT (SGPT) 14 U/L (0-50); AST (SGOT) 21 U/L (17-59); Albumin 3.9 g/dl (3.5-5.0); Alkaline Phosphatase 94 U/L (38-126); Blood Urea Nitrogen 38 mg/dl (9-20); Calcium 8.8 mg/dl (8.4-10.2); Carbon Dioxide 24 mmol/L (22-30); Chloride 105 mmol/L (98-107); Glucose 157 mg/dl (70-99); Potassium 3.8 mmol/L (3.5-5.1); Sodium 139 mmol/L (135-145); Total Bilirubin 0.7 mg/dl (0.2-1.3); Total Protein 6.6 g/dl (6.3-8.2); eGFR 39.51
--- NOTE | 2023-12-10 13:13 | ED.GENMED ---
History of Present Illness
General
Chief Complaint: Breathing Problem
Time Seen by Provider: 12/10/23 13:05
History of Present Illness
History of Present Illness:
83-year-old male with history of prior stroke, chronic atrial fibrillation on Pradaxa, hypertension, hyperlipidemia, and hypothyroidism presents to the emergency department for evaluation of abrupt onset of shortness of breath that began this
morning and woke him up from sleep. He has associated nausea and vomiting as well as 'indigestion'. He denies any chest or back pain. Symptoms seem improved when he is upright. No fevers or chills, reports overall weakness but no focal weakness.
Past History
Past History
ED Past Medical History: Arrthythmia (Paroxysmal atrial fibrillation), CAD, CHF, COPD, CVA, HTN, Hypercholesterolemia and Other (CKD)
ED Past Surgical History: Cardiac and Orthopedic (Resection of a thoracic spine lesion and spinal fusion)
Social History
Tobacco: Former smoker
Alcohol: None
Drug: None
Personal:
Living: alone
Employment: Retired
Family History
Family History: Other (Noncontributory)
Review of Systems
Review of Systems
Allergies reviewed?: Yes
All Other Systems: ROS reviewed and negative except as documented in HPI and ROS
Phy Exam
Physical Exam
Physical Exam:
GEN: Well appearing, NAD, WDWN
Eyes: PERRLA, EOMs intact, no scleral icterus
HENT: NCAT, oral mucosa moist
Lungs: CTAB, no wheezes, rales, rhonchi, normal chest wall excursion
Cardiac: RRR, no M/R/G, no peripheral edema. Radial pulses 2+ bilat
Abdomen: S, NT, ND, NABS, no masses or hepatosplenomegaly
Neuro: AO x 3
MSK: No gross deformity or ecchymosis. No edema. No digital clubbing
Skin: No rashes, petechiae. Normal color, no pallor or jaundice.
Psych: Calm, cooperative, proper hygiene
Scores
Heart Failure Risk
Heart Failure Risk Score: Yes
History of Stroke or TIA: No
History of intubation for respiratory distress: No
Heart rate on ED arrival >/= 110: No
SaO2 <90% on arrival on room air: Yes
HR >/=110 during 3min walk test (or too ill to perform test): Yes
ECG has acute ischemic changes: No
Urea >/=12mmol/L (BUN 33.6mg/dL): No
Serum CO2>/=35mmol/L: No
Troponin I or T elevated to [place] Level (0.4mg/dL): No
NT-proBNP >/=5,000ng/L (5,000pg/ml): No
HF Risk Score: 3
Admission Status: HIGH RISK 15.9% Consider SNF treatment or admission to hospital
Course
Orders/Labs/Results
Orders:
Orders
12/10/23 Lunch
Clear Liquid
At Your Request: Full Participation
Does patient need a safe tray?: No
12/10/23 11:56
Electrocardiogram (*1) Urgent
Reason for Study: Atrial Fibrillation
EKG- Treatment ONCE
12/10/23 12:01
Complete Blood Count/With Diff Urgent
Comprehensive Metabolic Panel Urgent
NT-proBNP Urgent
Troponin I Urgent
12/10/23 13:13
Ondansetron Injectable [Zofran] 4 mg .ROUTE .STK-MED ONE
Ondansetron Injectable [Zofran] 4 mg IV NOW STA
CR Chest - 2 Views Urgent
Comment:
Reason For Exam: SOB
12/10/23 13:46
Furosemide [Lasix] 80 mg IV NOW STA
12/10/23 14:39
Admit/Transfer Patient As Directed
Co-Sign Provider:
Level of Care: Inpatient admission
Assign to:: Telemetry
Physician / Group: Genesis Cao
Diagnosis: acute heart failure
Reason for Telemetry: Pulmonary Edema
Date to Stop Telemetry: 12/13/23
Time to Stop Telemetry: 11:00
Reason for Hospitalization: acute heart failure
Expected length of stay greater than two midnights?: Yes
ELOS- Estimated Length of Stay in days: 3
I certify the patient meets the requirements for IP care: Yes
PRN Pain Medication Management As Directed
May give lesser potent ordered pain med per pt: Yes
preference::
Protocol:: Medication orders for pain may be administered in a
manner that supports deferring to patient preference
when the pt is:
- Requesting an ordered lesser potent pain medication.
Least to most potent pain medications are defined
as: acetaminophen < NSAID < tramadol < opioids
(morphine, oxycodone, hydromorphone).
- Requesting a lesser dose of the same medication IF
ORDERED.
- Requesting a less intrusive route of administration
if both routes are prescribed by the provider (PO <
IV).
12/10/23 14:41
Dabigatran Etexilate Mesylate [Pradaxa] 150 mg PO NOW STA
12/10/23 14:42
Code Status As Directed
Resuscitation Status: Do not resuscitate
Reached after discussion with pt or family/Healthcare POA: Yes
DNR Bracelet Application ONCE
12/10/23 14:45
CR Abdomen - 2 Views Urgent
Reason For Exam: vomiting
12/10/23 14:50
Electrocardiogram (*1) Urgent
Reason for Study: Shortness of Breath
EKG- Treatment ONCE
12/10/23 14:51
Troponin I Routine
Potassium Chloride [KCl] 20 meq 0.9% Sodium Chloride 150 ml [Nss] 150 ml IV NOW
12/10/23 14:[address] Non Medication Order As Directed
Physician Order: please tiger text me when x-ray results
Above order entered?: Yes
12/10/23 15:00
Clopidogrel Bisulfate [Plavix] 75 mg PO DAILY
Flush (0.9% Sodium Chloride) [Flush (Nss)] See Dose Instructions IV PER PROTOCOL
Pantoprazole [Protonix IV] 40 mg IV DAILY
12/10/23 16:18
HydrALAZINE [Apresoline] 25 mg PO TID
Tramadol HCl [Ultram] 50 mg PO Q6HPRN PRN
umeclidinium-vilanterol [Anoro Ellipta] 1 inh INH R DAILY
12/10/23 16:18
HF DIETARY CONSULT Routine
HF EDUCATOR CONSULT Routine
Comment:
Activity As Directed
Activity Level: As Tolerated
Intake/ Output As Directed
Frequency: Per unit guidelines
Nursing to Place Non Medication Order As Directed
Physician Order: please TT me results of evening BMP
Above order entered?: Yes
Patient Education As Directed
Type: CHF folder
Comment: give on admission. Document in Interdisciplinary Education record
Sleep Apnea Assessment by RN As Directed
Comment:
Physician Instructions:
Vital Signs As Directed
Frequency: Other
Additional Instructions:: Q12 or per unit guidelines if more frequent.
Weight As Directed
Frequency: Daily
Type of Scale: Standing Scale
Comment: Daily morning weight. If unable to stand, use balanced bed scale.
Weight As Directed
Frequency: Once
Type of Scale: Standing Scale
Comment: Upon Admission. If unable to stand, use balanced bed scale.
Pulse Ox/cont/shift [RESP] Routine
Quantity: 1
Special Instructions: Daily pulse oximetry at rest. If greater than 92% at rest also obtain pulse oximetry
while ambulating as tolerated.
12/10/23 17:12
BMP [Basic Metabolic Panel] Routine
Troponin I Routine
12/10/23 17:30
Olodaterol HCl [Striverdi Respimat] 1 puff INH R DAILY
12/10/23 18:00
Atorvastatin [Lipitor] 40 mg PO QPM
12/10/23 19:00
Ondansetron Injectable [Zofran] 4 mg IV Q6HPRN PRN
12/10/23 20:00
Dabigatran Etexilate Mesylate [Pradaxa] 150 mg PO BID
Metoprolol [Lopressor] 25 mg PO BID
12/10/23 22:00
Dabigatran Etexilate Mesylate [Pradaxa] 150 mg PO BID
Finasteride [Proscar] 5 mg PO HS
Fluoxetine HCl [Prozac] 40 mg PO HS
Mirtazapine [Remeron] 15 mg PO HS
Tamsulosin [Flomax] 0.4 mg PO HS
12/11/23 06:00
Basic Metabolic Panel IN AM
Cardiovascular Evaluation IN AM
Complete Blood Count/With Diff IN AM
Magnesium IN AM
TSH Reflex To Free T4 IN AM
Troponin I IN AM
Levothyroxine [Synthroid] 112 mcg PO DAILY@0600
12/11/23 07:00
Echo 2D MMode Color/Doppler IN AM
Reason for Study: heart failure
12/11/23 08:00
FOLic ACID [Folvite] 1 mg PO DAILY
12/11/23 15:00
0.9% Sodium Chloride [Nss (Preservative Free)] 10 ml IV DAILY
12/12/23 06:00
Basic Metabolic Panel IN AM
12/13/23 06:00
Basic Metabolic Panel IN AM
12/13/23 11:00
DC Protocol for Telemetry ONCE
Abnormal Lab Results
12/10/23
12:01
RBC 4.22 L 10^6/uL
(4.70-6.10)
Hgb 12.9 L g/dL
(13.0-18.0)
Hct 38.1 L %
(39.0-52.0)
Abs Immat Gran (auto) 0.1 H 10^3/uL
(0-0.05)
Absolute Neuts (auto) 8.1 H 10^3/uL
(1.4-6.5)
Absolute Lymphs (auto) 0.8 L 10^3/uL
(1.2-3.4)
Immature Gran % 0.9 H %
(0-0.5)
Neutrophils % 84.7 H %
(42.2-75.2)
Lymphocytes % 8.6 L %
(20.5-51.1)
BUN 38 H mg/dl
(9-20)
Creatinine 1.7 H mg/dL
(0.7-1.3)
Glucose 157 H mg/dl
(70-99)
12/10/23 12:01
12/10/23 12:01
Vital Signs
Initial and Last Documented VS:
Initial Vital Signs
Temp Pulse Resp BP Pulse Ox
98.1 F 75 16 128/77 98
12/10/23 11:54 12/10/23 11:54 12/10/23 11:54 12/10/23 11:54 12/10/23 11:54
Last Documented Vital Signs
Temp Pulse Resp BP Pulse Ox
97.9 F 72 20 138/61 91
12/10/23 19:40 12/10/23 19:40 12/10/23 19:40 12/10/23 19:40 12/10/23 19:40
MDM/Problems Addressed
MDM/Problems Addressed:
I suspect the patient may be in acute decompensated CHF evidenced by his profound hypoxia with exertion however his weight is markedly down compared to prior dry weight. Chest x-ray does not show any significant abnormalities but BNP is elevated.
Troponin is not negative which again suggest some degree of cardiac stress. Low clinical suspicion for pulmonary embolism given that he is on Pradaxa and he has no chest or back pain thus I do not suspect an aortic dissection. Patient is too
hypoxic with exertion to discharge home thus we will trial IV diuresis and admit to the hospitalist service. Regards to the patient's vomiting it is not clear what is provoking this, symptoms could be an acute self-limited viral syndrome, he has no
focal wheezing to suggest vomiting provoked an aspiration event. He has no abdominal tenderness thus I do not see any indication for CT of the abdomen
Comment
Comment:
EKG independently interpreted by me shows atrial fibrillation at a rate of 64 with new T wave inversions laterally compared to prior EKG from August 2023. QTc of 422
*Critical Care Note
Total Time (30-74mins, 75-104mins- exclusive of procedures): Not Applicable
ED Attending Note
-
Portions of this chart may have been created with voice recognition software.� Occasional wrong word or��sound alike� substitutions may have occurred due to the inherent limitations of voice recognition software.
Discharge Plan
Departure
Patient Disposition: Admit
Date of Disposition: 12/10/23
Time of Disposition: 13:47
Admit to: Med/Surg
Presentation/result/management discussed w/ accepting MD/DO: Hospitalist
Discharge Problem:
Acute heart failure with preserved ejection fraction (HFpEF)
Interventions
Interventions:
*Risk Screen - Suicide Last Done: 12/10/23 12:53
*General Assessment Last Done: 12/10/23 12:52
*Neglect/Abuse Screening Last Done: 12/10/23 12:52
ED- Fall Risk Assessment Last Done: 12/10/23 15:00
*ED COVID-19 Vaccine History Last Done: 12/10/23 12:52
*Nursing Disposition Last Done: 12/10/23 16:29
ED- Cardiac Assessment Last Done: 12/10/23 12:53
ED- Pulmonary Assessment Last Done: 12/10/23 12:55
Discharge Date and Time
Discharge Date/Time: 12/10/23 16:30
[2023-12-10 13:14] VITALS: BP 182/89
[2023-12-10 13:17] LABS: NT-proBNP 3400 pg/ml
[2023-12-10] MEDS: ZOFRAN 4 MG IV (13:18)
[2023-12-10 14:00] VITALS: BP 174/97
[2023-12-10] MEDS: LASIX 80 MG IV (14:00)
--- NOTE | 2023-12-10 14:17 | HPS.HSE ---
Family Physician
-
Family Physician:
Chief Complaint
-
shortness of breath
History of Present Illness
Mr. Rei Álvarez is a 82 yo man with hx chronic atrial fibrillation on Pradaxa, CAD s/p PCI 06/30, prior CVA, HFpEF, HTN, HLD, hypothyroidism who presents to the ER with shortness of breath in setting of nausea and vomiting.
Patient lives alone, uses a walker in the house. He weighs himself daily and has not gained weight. Last night he woke up with sudden difficulty breathing associated with nausea. He had an episode of vomiting. After my exam, patient had another
episode of significant vomiting per RN. He currently states his indigestion is improved. He denies abdominal pain. He states he is passing minimal gas as of this morning but did have a BM earlier.
He denies fevers/chills. No chest pain. No headache. No abdominal pain. He has not had an increase in lower extremity swelling. No diarrhea.
Medical History
Past Medical History
Past Medical History: Reports Other (Hypertension, hyperlipidemia, chronic diastolic CHF, persistent atrial fibrillation, CKD, COPD, morbid obesity, lymphedema,)
Past Surgical History: Reports Other (Cardioversion, cardiac cath )
Social History
Tobacco: Non-smoker
Alcohol: None
Drug: None
Family History
Family History: Not pertinent
Allergies / Home Medications
Allergies reflects when Allergies were last updated in [facility].
Home Medications with original date entered in [facility]
Allergy/Medication List:
Allergies
Allergy/AdvReac Type Severity Reaction Status Date / Time
No Known Allergies Allergy Verified 12/10/23 11:55
Home Medications
atorvastatin 40 mg tablet 40 mg PO QPM High cholesterol 01/19/20
dabigatran etexilate 150 mg capsule (Pradaxa) 150 mg PO BID Blood clot prevention/tx 01/19/20
finasteride 5 mg tablet 5 mg PO HS Urinary issue 04/07/20
metoprolol tartrate 25 mg tablet 25 mg PO BID Blood pressure 04/07/20
tamsulosin 0.4 mg capsule 0.4 mg PO HS Urinary issue 04/07/20
levothyroxine 112 mcg tablet 112 mcg PO DAILY Thyroid 07/21/21
fluoxetine 40 mg capsule (Prozac) 40 mg PO HS Mental Health/Anxiety 11/02/21
folic acid 1 mg tablet 1 mg PO DAILY Supplement 06/19/23
potassium chloride 20 mEq oral packet (Klor-Con) 20 meq PO BID@0800,1600 Supplement 06/19/23
torsemide 20 mg tablet 40 mg PO BID@0800,1600 Fluid Retention/Swelling 06/19/23
clopidogrel 75 mg tablet 75 mg PO DAILY #1 tab 06/25/23
hydralazine 25 mg tablet 25 mg PO TID #1 tab 06/25/23
olodaterol 2.5 mcg/actuation mist for inhalation (Striverdi Respimat) 2.5 mcg inhalation R DAILY #4 grams 06/25/23
mirtazapine 15 mg tablet 15 mg PO HS Mental Health 08/28/23
dapagliflozin propanediol 10 mg tablet 10 mg PO DAILY 30 days #30 tabs 09/04/23
tramadol 50 mg tablet 50 mg PO Q6HPRN PRN moderate pain #4 tabs 09/04/23
colchicine 0.6 mg tablet 0.3 mg PO DAILYPRN PRN gout flares 12/10/23
umeclidinium 62.5 mcg-vilanterol 25 mcg/actuation powdr for inhalation (Anoro Ellipta) 1 inh inhalation R DAILY 12/10/23
Review of Systems
-
History Source: Patient
A 12 point ROS was completed and negative except as noted: Yes
Physical Exam
Vital Signs
Vital Signs
Temp Pulse Resp BP Pulse Ox
98.1 F 69 19 182/89 91
12/10/23 11:54 12/10/23 13:15 12/10/23 13:15 12/10/23 13:14 12/10/23 13:15
Physical Exam
General: No Apparent Distress
HEENT: PERRLA
Respiratory: Clear; No Wheezes
Cardiac: S1/S2, Regular Rhythm and JVD
GI: Soft and Non Tender
Musculoskeletal: Other (trace edema b/l )
Skin: Warm and Dry; No Rash
Neuro: AO x 3
Psych: Calm
Laboratory Results
-
12/10/23 12:01
12/10/23 12:01
Laboratory Results
Total Bilirubin 0.7 mg/dl (0.2-1.3) 12/10/23 12:01
AST 21 U/L (17-59) 12/10/23 12:01
ALT 14 U/L (0-50) 12/10/23 12:01
Alkaline Phosphatase 94 U/L (38-126) 12/10/23 12:01
Troponin I 0.020 ng/ml 12/10/23 12:01
Data Reviewed
-
Diagnostic Radiology: Report Reviewed by me
Lab Data: Labs Reviewed by me
Impression/Plan
-
Mr. Rei Álvarez is a 82 yo man with hx chronic atrial fibrillation on Pradaxa, CAD s/p PCI 06/30, prior CVA, HFpEF, HTN, HLD, hypothyroidism who presents to the ER with shortness of breath in setting of nausea and vomiting. Presentation
unclear, initial concern for heart failure but patient's weight is down and unusual to be associated with this degree of vomiting.
Triage VS: T 98.1, P 75, RR 16, BP 128/77, SpO2 98%
LABS: WBC 9.6, Hg 12.9, PLT 297 Na 139, K+ 3.8, BUN 38, Cr 1.7, Glucose 157, liver enzymes WNL, Trop 0.020, BNP 3400
EKG: afib @ 64, TWI lateral leads
CXR
IMPRESSION:
No acute disease of the chest.
Stable elevation of the right hemidiaphragm.
TTE 04/25/23
CONCLUSIONS
Normal left ventricular size and systolic function without regional wall motion
abnormality.
Cannot comment on right ventricular size, but function appears normal.
Aortic sclerosis.
Mild pulmonary hypertension.
Overall, this is a limited study, if indicated recommend additional imaging
with Contrast may be helpful.
Compared to previous echo 06/28/2022, the prior study used Definity images. The
pulmonary pressure has decreased from 55mmHg on the prior study. The right
ventricle now appears normal in function.
Indications:
Acute on chronic diastolic (congestive) heart failure, Persistent atrial
fibrillation
Shortness of Breath
Nausea/Vomiting, possible Gastroenteritis versus obstruction
Hx Heart Failure preserved EF; unclear if acute heart failure at this time as weight is down, no LE swelling
-obtain obstruction series now
-s/p lasix 80mg IV in the ER, will hold off on further diuresis until presentation becomes more clear.
-repeat labs this evening. If creatinine up, I would actually start gentle IVF
-clear liquids (make NPO if e/o obstruction)
-IV Zofran PRN
HFpEF
-patient is on Torsemide 40mg PO BID at home and spironolactone 25mg PO QD - hold
Permanent Atrial Fibrillation
-resume CENTER MANAGER Pradaxa once confirmed obstruction ruled out
-CENTER MANAGER Metoprolol
CAD with hx PCI 06/2023
-patient is on DAPT plavix and Pradaxa - resume once obstruction ruled out
Essential HTN
-hypertensive in ER
-CENTER MANAGER Hydralazine
Hypokalemia
-relete with 20mEq K
Hx CVA
Depression
-CENTER MANAGER Prozac, Mirtazapine
BPH
-CENTER MANAGER Finasteride, Flomax
COPD
-CENTER MANAGER nebulizers
DVT PPx Pradaxa (start hep subQ if this needs to be held for obstruction)
DNR - confirmed on admission
76 minutes spent on patient evaluation, medical decision making, coordination of care
--- NOTE | 2023-12-10 14:52 | PHANOTE ---
med rec note- spoke to patient about his medication he is not sure what he takes at home even by name or what they do. used physician and pharmacy. patient did know some on them but not all
[2023-12-10] MEDS: PROTONIX IV 40 MG IV (15:08)
[2023-12-10] MEDS: KCL 160 MEQ IV (15:10)
[2023-12-10 15:19] LABS: Troponin I 0.022 ng/ml
[2023-12-10 17:03] VITALS: BP 131/77
[2023-12-10 17:04] VITALS: BMI 38.7
[2023-12-10 17:08] VITALS: BMI 38.7
[2023-12-10] MEDS: PRADAXA 150 MG PO (17:16)
[2023-12-10] MEDS: PLAVIX 75 MG PO (17:16)
[2023-12-10] MEDS: LIPITOR 40 MG PO (17:16)
[2023-12-10] MEDS: APRESOLINE 25 MG PO ×2 (17:16→23:20)
[2023-12-10 17:29] VITALS: BMI 38.7
[2023-12-10 17:44] LABS: Blood Urea Nitrogen 37 mg/dl (9-20); Calcium 8.8 mg/dl (8.4-10.2); Carbon Dioxide 28 mmol/L (22-30); Chloride 106 mmol/L (98-107); Estimated Creatinine Clearance 39 ml/min; Glucose 121 mg/dl (70-99); Potassium 4.8 mmol/L (3.5-5.1); Sodium 143 mmol/L (135-145); Troponin I 0.023 ng/ml; eGFR 34.57
[2023-12-10] MEDS: STRIVERDI RESPIMAT INH (19:21)
[2023-12-10 19:40] VITALS: BP 138/61
[2023-12-10] MEDS: LOPRESSOR 25 MG PO (20:13)
[2023-12-10] MEDS: REMERON 15 MG PO (20:17)
[2023-12-10] MEDS: PROSCAR 5 MG PO (20:17)
[2023-12-10] MEDS: FLOMAX 0.4 MG PO (20:19)
[2023-12-10] MEDS: PROZAC 40 MG PO (20:19)
[2023-12-10] MEDS: NSS 250 IV (20:21)
[2023-12-10] MEDS: NSS 1000 IV (21:54)
[2023-12-10 23:26] VITALS: BP 125/68
[2023-12-11] VITALS (8 sets, daily range): BP systolic 104–158; BP diastolic 51–84; PULSE 62; O2SAT 95; BMI 37.7
--- NOTE | 2023-12-11 04:05 | PTCARENOTE ---
Patient in afib on telemetry, HR ranging from 30s-50s after HS metoprolol and hydralazine, asymptomatic. 0300 BP 104/51. 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 BS for 502 and SC for 500. UA sent. Plan of care ongoing.
[2023-12-11 04:47] LABS: Urine Albumin Negative (Neg - Trace); Urine Bilirubin Negative (Negative); Urine Character Clear (Clear); Urine Color Yellow; Urine Glucose 1+ (Negative); Urine Ketone Negative (Negative); Urine Leukocyte Negative (Negative); Urine Nitrite Negative (Negative); Urine Occult Blood Negative (Negative); Urine Specific Gravity 1.015 (<1.030); Urine Urobilinogen Negative (Neg - 1+)
[2023-12-11] MEDS: SYNTHROID 112 MCG PO (05:54)
[2023-12-11] MEDS: STRIVERDI RESPIMAT 1 PUFF INH (07:39)
[2023-12-11 08:28] LABS: % Basophils 0.3 % (0-2); % Eosinophils 1.3 % (0-6); % Immature Granulocytes 0.5 % (0-0.5); % Lymphocytes 19.9 % (20.5-51.1); Absolute Eosinophils 0.1 10^3/uL (0-0.7); Absolute Lymphocytes 1.3 10^3/uL (1.2-3.4); Absolute Monocytes 0.7 10^3/uL (0.1-0.6); Absolute Neutrophils 4.3 10^3/uL (1.4-6.5); Hematocrit 34.2 % (39.0-52.0); Hemoglobin 11.2 g/dL (13.0-18.0); Mean Corp Hgb Conc. 32.7 g/dL (33.0-37.0); Mean Corpuscular Hgb 30.8 pg (27.0-31.0); Mean Platelet Volume 10.1 fL (7.4-10.4); Nucleated Red Blood Cells % 0 % (-); Platelet Count 222 10^3/uL (130-400); Red Blood Cell Count 3.64 10^6/uL (4.70-6.10); Red Cell Dist. Width 14.4 % (11.5-14.5); White Blood Cell Count 6.3 10^3/uL (4.8-10.8)
[2023-12-11] MEDS: DESENEX/MITRAZOL/ZEASORB 1 APPLIC TOPICAL ×2 (08:32→19:49)
[2023-12-11] MEDS: NSS (PRESERVATIVE FREE) 10 ML IV (08:32)
[2023-12-11] MEDS: FOLVITE 1 MG PO (08:33)
[2023-12-11] MEDS: APRESOLINE 25 MG PO ×3 (08:33→21:34)
[2023-12-11] MEDS: PRADAXA 150 MG PO ×2 (08:33→19:36)
[2023-12-11] MEDS: PROTONIX IV 40 MG IV (08:33)
[2023-12-11] MEDS: LOPRESSOR PO (08:34)
[2023-12-11] MEDS: PLAVIX 75 MG PO (08:34)
[2023-12-11 09:01] LABS: Blood Urea Nitrogen 36 mg/dl (9-20); Calcium 8.2 mg/dl (8.4-10.2); Carbon Dioxide 28 mmol/L (22-30); Chloride 105 mmol/L (98-107); Estimated Creatinine Clearance 40 ml/min; Glucose 98 mg/dl (70-99); HDL Cholesterol 31 mg/dl; LDL Cholesterol, Calculated 71 mg/dl; Magnesium 2.6 mg/dl (1.6-2.3); Potassium 3.8 mmol/L (3.5-5.1); Sodium 139 mmol/L (135-145); Total Cholesterol 122 mg/dl (50-199); Triglyceride 104 mg/dl (10-149); Very Low Density Lipoprotein 20 mg/dl (0-30); eGFR 36.89
[2023-12-11 10:09] LABS: TSH Reflex To Free T4 0.82 uIU/ml (0.47-4.68)
--- NOTE | 2023-12-11 10:35 | CARDSERVLU ---
Echocardiogram with [facility] completed after protocol screening completed. Allergies verified.
Patent IV site: __Left wrist___
IV site flushed with 0.9% NaCl pre and post administration.
Diluted bolus method utilized to enhance visualization of ventricular wallace.
Total volume given: __5.0__ mL
Patient tolerated all procedures well without complications.
--- NOTE | 2023-12-11 11:04 | CM ---
CM met with pt bedside
Pt resides alone in a 2SH with 4 MARINA
Full flight to 2nd floor
[facility] few weeks
Pt notes independence with use of a WW
His firned/Stephan is his POA
Denies financial insecurities
Hx with [facility], [facility] and [facility]
PCP- Rajiv Pavon
Rx- [facility]
Call from [place]/ nurse THOR from the [place] [phone]. [phone]
Update provided- she can assist with dc planning as needed
[facility] Turner[facility]
Pt is not service connected
PT/OT orders requested
Discharge Disposition- anticipate home, follow for higher needs
--- NOTE | 2023-12-11 11:47 | W.PN.HOSP.TC ---
Today's Communication/Plan
-
250cc bolus, orthostats, rebolus if needed
PT/OT
likely DC tomorrow
Assessment / Plan
Assessment / Plan
Mr. Rei Álvarez is a 82 yo man with hx chronic atrial fibrillation on Pradaxa, CAD s/p PCI 06/30, prior CVA, HFpEF, HTN, HLD, hypothyroidism who presents to the ER with shortness of breath in setting of nausea and vomiting. Presentation
unclear, initial concern for heart failure but patient's weight is down and unusual to be associated with this degree of vomiting.
CXR
IMPRESSION:
No acute disease of the chest.
Stable elevation of the right hemidiaphragm.
TTE 04/25/23
CONCLUSIONS
Normal left ventricular size and systolic function without regional wall motion
abnormality.
Cannot comment on right ventricular size, but function appears normal.
Aortic sclerosis.
Mild pulmonary hypertension.
Overall, this is a limited study, if indicated recommend additional imaging
with Contrast may be helpful.
Compared to previous echo 06/28/2022, the prior study used Definity images. The
pulmonary pressure has decreased from 55mmHg on the prior study. The right
ventricle now appears normal in function.
Indications:
Acute on chronic diastolic (congestive) heart failure, Persistent atrial
fibrillation
Shortness of Breath
Nausea/Vomiting, possible Gastroenteritis versus obstruction
-x-ray without obstruction
-nausea resolved - diet ordered
-SOB was in setting significant nausea, now resolved
-IV Zofran PRN
HFpEF, chronic - acute has been ruled out
-patient is on Torsemide 40mg PO BID at home and spironolactone 25mg PO QD - hold given dehydration post vomiting
CKD
-creatinine close to baseline, mildly above
-give small bolus now
-check orthostats
Permanent Atrial Fibrillation
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
-MOLDING PROCESS TECHNICIAN Metoprolol
CAD with hx PCI 06/2023
-patient is on DAPT Plavix and Pradaxa - resume once obstruction ruled out
Essential HTN
-hypertensive in ER
-MOLDING PROCESS TECHNICIAN Hydralazine
Hypokalemia
-repleted
Hx CVA
Depression
-MOLDING PROCESS TECHNICIAN Prozac, Mirtazapine
BPH
-MOLDING PROCESS TECHNICIAN Finasteride, Flomax
COPD
-MOLDING PROCESS TECHNICIAN nebulizers
DVT PPx Pradaxa
DNR - confirmed on admission
51 minutes spent on patient evaluation, medical decision making, coordination of care
Anticipated Discharge: 24 - 48 hours
Subjective/Interval History
-
Date of Service: December 11, 2023
feeling better today
no further nausea/vomiting
Objective Data
-
Labs:
Laboratory Results
12/11/23
07:38
WBC 6.3
Hgb 11.2 L
Hct 34.2 L
Plt Count 222 D
Sodium 139
Potassium 3.8
Chloride 105
Carbon Dioxide 28
BUN 36 H
Creatinine 1.8 H
Glucose 98
Calcium 8.2 L
Vital Signs:
Vital Signs
Temp Pulse Resp BP Pulse Ox
97.9 F 84 18 124/66 95
12/11/23 11:30 12/11/23 11:30 12/11/23 11:30 12/11/23 11:30 12/11/23 11:30
I&O
12/10/23 12/11/23 12/12/23
06:59 06:59 06:59
Intake Total 240 / 240
Output Total 950 / 950
Balance -710 / -710
Review of Systems
-
History Source: Patient
All other systems: Reviewed and negative
Physical Exam
-
General: No Apparent Distress
HEENT: PERRLA
Respiratory: Clear to Auscultation; Negative Wheezes
Cardiac: Regular Rhythm and S1/S2
GI: Soft and Nontender
Musculoskeletal: No Edema
Skin: Warm and Dry; Negative Rash
Neuro: AO x 3
Psych: Calm
Data Reviewed
-
Diagnostic Radiology: Report Reviewed by me
Labs: Labs Reviewed by me
[2023-12-11] MEDS: NSS 250 IV ×2 (13:02→16:48)
[2023-12-11] MEDS: NSS IV (13:24)
--- NOTE | 2023-12-11 15:20 | PN.CDI ---
CDI
- -
CDI:
Physician Documentation Request
Admit Date: 12/10/23 15:07
Dear Doctor Kiley,
Patient presented for shortness of breath. Progress notes states 'Persistent atrial fibrillation' as well as ' Permanent atrial fibrillation'
In an attempt to clarify potential conflicting documentation, please clarify the type of atrial fibrillation:
Persistent atrial fibrillation - episodes of continuous AF that last more than 7 days and do not self-terminate
Permanent atrial fibrillation - when a decision has been made to accept the presence of AF and there is no further attempt to restore or maintain sinus rhythm
Other - please specify
Use of terms such as suspected, likely, concern for, or probable (associated with a specific diagnosis that is being evaluated, monitored, or treated as if it exists) are acceptable and can be coded in the inpatient setting, when documented at the
time of discharge.
Thank you,
Jocelyn Washington RN, BSN
CDI Specialist
tiger text
Please use your independent medical judgment in providing your response.
[2023-12-11] MEDS: LIPITOR 40 MG PO (16:49)
[2023-12-11] MEDS: LOPRESSOR 25 MG PO (19:35)
[2023-12-11] MEDS: ULTRAM 50 MG PO (19:37)
[2023-12-11] MEDS: PROZAC 40 MG PO (21:27)
[2023-12-11] MEDS: PROSCAR 5 MG PO (21:27)
[2023-12-11] MEDS: REMERON 15 MG PO (21:28)
[2023-12-11] MEDS: FLOMAX 0.4 MG PO (21:35)
[2023-12-12 03:23] VITALS: BP 107/89
[2023-12-12 06:00] VITALS: BMI 38.7
[2023-12-12] MEDS: SYNTHROID 112 MCG PO (06:38)
[2023-12-12 07:21] LABS: Blood Urea Nitrogen 35 mg/dl (9-20); Calcium 8.6 mg/dl (8.4-10.2); Carbon Dioxide 26 mmol/L (22-30); Chloride 105 mmol/L (98-107); Estimated Creatinine Clearance 46 ml/min; Glucose 94 mg/dl (70-99); Magnesium 2.6 mg/dl (1.6-2.3); Potassium 4.4 mmol/L (3.5-5.1); Sodium 137 mmol/L (135-145); eGFR 42.49
[2023-12-12 07:46] VITALS: BP 148/69
[2023-12-12] MEDS: SPIRIVA RESPIMAT 2.5 MCG 2 PUFF INH (07:59)
[2023-12-12] MEDS: STRIVERDI RESPIMAT 2 PUFF INH (07:59)
[2023-12-12] MEDS: ULTRAM 50 MG PO (08:43)
[2023-12-12] MEDS: APRESOLINE 25 MG PO (08:43)
[2023-12-12] MEDS: PRADAXA 150 MG PO (08:44)
[2023-12-12] MEDS: PLAVIX 75 MG PO (08:44)
[2023-12-12] MEDS: LOPRESSOR 25 MG PO (08:44)
[2023-12-12] MEDS: FOLVITE 1 MG PO (08:44)
[2023-12-12] MEDS: PROTONIX IV 40 MG IV (08:45)
[2023-12-12] MEDS: NSS (PRESERVATIVE FREE) 10 ML IV (08:45)
[2023-12-12] MEDS: DESENEX/MITRAZOL/ZEASORB 1 APPLIC TOPICAL (08:52)
[2023-12-12 09:25] VITALS: BP 151/65; PULSE 58; O2SAT 96
[2023-12-12 11:42] VITALS: BP 123/65; BP 124/63; BP 92/70; PULSE 60; PULSE 70; PULSE 71
--- NOTE | 2023-12-12 11:51 | W.PN.HOSP.TC ---
Addendum entered and electronically signed by Genesis Cao MD 12/13/23 08:48:
CKD IIIa
-monitoring renal function closely as outpatient
Addendum entered and electronically signed by Genesis Cao MD 12/12/23 14:51:
permanent afib
-LADIES ATTENDANT Pradaxa
Original Note:
Today's Communication/Plan
-
OK for DC today
Assessment / Plan
Assessment / Plan
Mr. Rei Álvarez is a 82 yo man with hx chronic atrial fibrillation on Pradaxa, CAD s/p PCI 06/30, prior CVA, HFpEF, HTN, HLD, hypothyroidism who presents to the ER with shortness of breath in setting of nausea and vomiting. Presentation
unclear, initial concern for heart failure but patient's weight is down and unusual to be associated with this degree of vomiting.
CXR
IMPRESSION:
No acute disease of the chest.
Stable elevation of the right hemidiaphragm.
TTE 04/25/23
CONCLUSIONS
Normal left ventricular size and systolic function without regional wall motion
abnormality.
Cannot comment on right ventricular size, but function appears normal.
Aortic sclerosis.
Mild pulmonary hypertension.
Overall, this is a limited study, if indicated recommend additional imaging
with Contrast may be helpful.
Compared to previous echo 06/28/2022, the prior study used Definity images. The
pulmonary pressure has decreased from 55mmHg on the prior study. The right
ventricle now appears normal in function.
Indications:
Acute on chronic diastolic (congestive) heart failure, Persistent atrial
fibrillation
Shortness of Breath
Nausea/Vomiting, possible Gastroenteritis versus obstruction
-x-ray without obstruction
-nausea resolved - diet ordered
-SOB was in setting significant nausea, now resolved
-IV Zofran PRN
HFpEF, chronic - acute has been ruled out
-patient is on Torsemide 40mg PO BID at home and spironolactone 25mg PO QD - hold given dehydration post vomiting --> OK to resume tomorrow
-hold spironolactone until repeat outpatient labs
CKD
-creatinine improving
-holding diuretics one more day
Permanent Atrial Fibrillation
-LADIES ATTENDANT Pradaxa
-LADIES ATTENDANT Metoprolol
CAD with hx PCI 06/2023
-patient is on DAPT Plavix and Pradaxa
Essential HTN
-hypertensive in ER
-LADIES ATTENDANT Hydralazine
Hypokalemia
-repleted
Hx CVA
Depression
-LADIES ATTENDANT Prozac, Mirtazapine
BPH
-LADIES ATTENDANT Finasteride, Flomax
COPD
-LADIES ATTENDANT nebulizers
DVT PPx Pradaxa
DNR - confirmed on admission
51 minutes spent on patient evaluation, medical decision making, coordination of care
Anticipated Discharge: Today
Subjective/Interval History
-
Date of Service: December 12, 2023
he is feeling well and feels ready to go home
no lightheadedness or dizziness
no shortness of breath
eating and drinking okay
Objective Data
-
Labs:
Laboratory Results
12/12/23
06:31
Sodium 137
Potassium 4.4
Chloride 105
Carbon Dioxide 26
BUN 35 H
Creatinine 1.6 H
Glucose 94
Calcium 8.6
Vital Signs:
Vital Signs
Temp Pulse Resp BP Pulse Ox
97.6 F 84 18 148/69 97
12/12/23 11:42 12/12/23 08:43 12/12/23 11:42 12/12/23 08:43 12/12/23 11:42
I&O
12/11/23 12/12/23 12/13/23
06:59 06:59 06:59
Intake Total 240 / 240 1860 / 1860
Output Total 950 / 950 950 / 950 100 / 100
Balance -710 / -710 910 / 910 -100 / -100
Review of Systems
-
History Source: Patient
All other systems: Reviewed and negative
Physical Exam
-
General: No Apparent Distress
HEENT: PERRLA
Respiratory: Clear to Auscultation; Negative Wheezes
Cardiac: Regular Rhythm and S1/S2
GI: Soft and Nontender
Musculoskeletal: No Edema
Skin: Warm and Dry; Negative Rash
Neuro: AO x 3
Psych: Calm
Data Reviewed
-
Diagnostic Radiology: Report Reviewed by me
Labs: Labs Reviewed by me
--- NOTE | 2023-12-12 12:00 | W.DS.TRANS ---
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
-
Discharge Instructions:
Discharge Diagnosis/Procedures Dehydration in setting of Gastroenteritis
Diet Restrict fluids to 48 oz,Low Cholesterol
Activity As tolerated
Driving Restrictions As prior to admission
Bathing Restrictions None
Blood Work BMP on Sunday12/14/23
Other Services VN,PT
Specialty Instructions Weigh Daily
Instructions:
Stand-Alone Forms:
Changes to Home Medications: Yes
Discharge Medications:
DC Medications w/original date entered in [employer]
atorvastatin 40 mg tablet 40 mg PO QPM High cholesterol 01/19/20
dabigatran etexilate 150 mg capsule (Pradaxa) 150 mg PO BID Blood clot prevention/tx 01/19/20
finasteride 5 mg tablet 5 mg PO HS Urinary issue 04/07/20
metoprolol tartrate 25 mg tablet 25 mg PO BID Blood pressure 04/07/20
tamsulosin 0.4 mg capsule 0.4 mg PO HS Urinary issue 04/07/20
levothyroxine 112 mcg tablet 112 mcg PO DAILY Thyroid 07/21/21
fluoxetine 40 mg capsule (Prozac) 40 mg PO HS Mental Health/Anxiety 11/02/21
folic acid 1 mg tablet 1 mg PO DAILY Supplement 06/19/23
potassium chloride 20 mEq oral packet (Klor-Con) 20 meq PO BID@0800,1600 Supplement 06/19/23
torsemide 20 mg tablet 40 mg PO BID@0800,1600 Fluid Retention/Swelling 06/19/23
clopidogrel 75 mg tablet 75 mg PO DAILY #1 tab 06/25/23
hydralazine 25 mg tablet 25 mg PO TID #1 tab 06/25/23
olodaterol 2.5 mcg/actuation mist for inhalation (Striverdi Respimat) 2.5 mcg inhalation R DAILY #4 grams 06/25/23
mirtazapine 15 mg tablet 15 mg PO HS Mental Health 08/28/23
dapagliflozin propanediol 10 mg tablet 10 mg PO DAILY 30 days #30 tabs 09/04/23
tramadol 50 mg tablet 50 mg PO Q6HPRN PRN moderate pain #4 tabs 09/04/23
colchicine 0.6 mg tablet 0.3 mg PO DAILYPRN PRN gout flares 12/10/23
spironolactone 25 mg tablet 25 mg PO DAILY 12/10/23
umeclidinium 62.5 mcg-vilanterol 25 mcg/actuation powdr for inhalation (Anoro Ellipta) 1 inh inhalation R DAILY 12/10/23
Home Medication Changes
hold spironolactone until after repeat labs
OK to resume Torsemide tomorrow
Pending Results: No
[2023-12-12 12:31] VITALS: BP 124/63
--- NOTE | 2023-12-12 12:31 | CM ---
Addendum entered by Ericka Singh 12/12/23 12:33:
patient states his friends are busy and not able to transport him home.he will call a cab.
Original Note:
met with patient at bedside.he is stable for dc home with [facility].referral called to jazmin at [facility].min signed imm letter.
--- NOTE | 2023-12-12 13:16 | VNURNOTE ---
Home Health Liaison met with patient at bedside to discuss [facility] nurse/therapy, visits, schedule and homebound status. Patient is agreeable and understands that visits at home will be 1-3 x per week to assess and teach medical management. Patient
has had [facility] in the past and has contact information. Patient is aware that [facility] will contact them for start of care in 1-2 days after discharge from . [facility] referral completed in [facility].
--- NOTE | 2023-12-12 14:36 | W.DCSUMMARY ---
Discharge Summary
Discharge Data
Date of Admission: 12/10/23
Date of Discharge: 12/12/23
-
Pending Results: No
Hospital Course
Discharging Physician : Dr. Genesis Cao
Disposition : Home with Home Health
Primary care physician : Dr. Rajiv Pavon
Principal Discharge diagnosis : Gastroenteritis, Dehydration
Hospital Course :
Mr. Rei Álvarez is a 82 yo man with hx chronic atrial fibrillation on Pradaxa, CAD s/p PCI 06/30, prior CVA, HFpEF, HTN, HLD, hypothyroidism who presents to the ER with shortness of breath in setting of nausea and vomiting. Triage vitals
stable, labs with WBC 9.6, Cr 1.7, Trop 0.020, BNP 3400. CXR without acute disease of the chest.
Given shortness of breath and elevated BNP, initially there was concern for heart failure and patient was given lasix in the ER. He then had further vomiting and presentation suggested more gastroenteritis and dehydration. obstruction series
negative. He was given IVF overnight and patient's symptoms, including his shortness of breath, resolved. He no longer had nausea and tolerated a regular diet. His creatinine initially went up to 1.9 then improved with IVF and is down to 1.6 on
day of discharge. He is told to hold his Torsemide one more day and hold spironolactone until further directed by outpatient physicians. Given delicate fluid balance, I am getting close follow up labs on 12/14/23.
Patient worked with PT and HH recommended.
Time spent on discharge was 32 minutes.
Important imaging findings :
Abdomen X-Ray 12/10/23
IMPRESSION:
Nonobstructive bowel gas pattern.
TTE 12/11/23
CONCLUSIONS
Normal biventricular size and systolic function without regional wall motion
abnormality.
Left ventricular ejection fraction is 50-55% by visual assessment.
Enlarged right ventricular size with normal right ventricular systolic
function.
No significant valvular disease.
Compared to the previous echo the right ventricle is better visualized on
today's study and appears enlarged.
Procedure findings :
Discharge Plan
-
Patient Disposition: Home with Home Care
Discharge Diagnosis/Procedures: Dehydration in setting of Gastroenteritis
Diet: Low Cholesterol and Restrict fluids to 48 oz
Activity: As tolerated
Driving Restrictions: As prior to admission
Bathing Restrictions: None
Blood Work: BMP on Sunday12/14/23
Other Services: VN and PT
Specialty Instructions: Weigh Daily- Call MD for wt gain/loss 3 lbs overnight/5 lbs in 1 week
Referrals:
Rajiv Pavon MD [Family Provider] - in less than 1 week
Additional Discharge Medication Instructions: OK to resume your Torsemide tomorrow on 12/13/23.
Hold Spironolactone until you are further directed by your PCP. If kidney function stable on repeat labs on Sunday then should be okay to resume.
Prescriptions:
Continued
atorvastatin 40 MG tablet
40 mg PO QPM
dabigatran etexilate [Pradaxa] 150 MG capsule
150 mg PO BID
tamsulosin 0.4 MG capsule
0.4 mg PO HS
finasteride 5 MG tablet
5 mg PO HS
metoprolol tartrate 25 MG tablet
25 mg PO BID
levothyroxine 112 MCG tablet
112 mcg PO DAILY
fluoxetine [Prozac] 40 MG capsule
40 mg PO HS
torsemide 20 mg tablet
40 mg PO BID@0800,1600
folic acid 1 mg Tablet
1 mg PO DAILY
potassium chloride [Klor-Con] 20 mEq packet
20 meq PO BID@0800,1600
hydralazine 25 mg Tablet
25 mg PO TID Qty: 1 0RF
clopidogrel 75 mg Tablet
75 mg PO DAILY Qty: 1 0RF
Striverdi Respimat 2.5 mcg/actuation Mist
2.5 mcg inhalation R DAILY Qty: 4 0RF
mirtazapine 15 mg Tablet
15 mg PO HS
Rx Instructions:
stop 45mg
dapagliflozin propanediol 10 mg Tablet
10 mg PO DAILY 30 Days Qty: 30 0RF
tramadol 50 mg Tablet
50 mg PO Q6HPRN PRN (Reason: moderate pain) Qty: 4 0RF
Anoro Ellipta 62.5-25 mcg/actuation Blister With Device
1 inh INHALATION R DAILY
colchicine 0.6 mg tablet
0.3 mg PO DAILYPRN PRN (Reason: gout flares)
Rx Instructions:
take 2 tablet at once for flare up then 1 tablet there after
Held
spironolactone 25 mg Tablet
25 mg PO DAILY
Hold Instructions: Resume on 12/19/23.
Discharge Orders:
Discharge Patient (As Directed); Ordered 12/12/23
Ordered By: Genesis Cao
Discharge Date and Time
Discharge Date/Time: 12/12/23 13:15
Print Language: BENGALI
--- NOTE | 2023-12-12 15:17 | PN.CDI ---
CDI
- -
CDI:
Physician Documentation Request
Admit Date: 12/10/23 15:07
Dear Doctor Kiley,
H&P and progress notes state patient has CKD.
The following are the eGRF results from this hospitalization and some from early 2023.
06/20/23 06/23/23 07/02/23
07:23 04:21 07:00
eGFR 49.87 36.89 45.91
07/09/23 08/30/23 09/02/23
06:23 07:40 07:22
eGFR 54.51 42.49 > 60.00
12/10/23 12/10/23 12/11/23
12:01 17:12 07:38
eGFR 39.51 34.57 36.89
12/12/23
06:31
eGFR 42.49
Please clarify the patient's stage of CKD:
Stages of Chronic Kidney Disease*
Level Description GFR
G1 Normal or High >90
G2 Mildly decreased 60-89
G3a Mildly to moderately decreased 45-59
G3b Moderately to severely decreased 30-44
G4 Severely decreased 15-29
G5 Kidney failure <15
Other
Use of terms such as suspected, likely, concern for, or probable (associated with a specific diagnosis that is being evaluated, monitored, or treated as if it exists) are acceptable and can be coded in the inpatient setting, when documented at the
time of discharge.
Thank you,
Jocelyn Washington RN, BSN
CDI Specialist
tiger text
Please use your independent medical judgment in providing your response.
*Source: Kidney Disease: Improving Global Outcomes (KDIGO) 2012
== END 2023-12-12 13:15 | disposition home health service (06) | DRG 392 ==
LOC: 4 EAST ACU 15:07
PROVIDERS: Emergency Medicine; Nurse Practitioner Family; Physician Assistant; ADMITTING PHYSICIAN Student in an Organized Health Care Education/Training Program; EMERGENCY PHYSICIAN Student in an Organized Health Care Education/Training Program; FAMILY PHYSICIAN Internal Medicine
DX: K52.9 Noninfective gastroenteritis and colitis, unspecified (principal); I13.0 Hypertensive heart and chronic kidney disease with heart failure and stage 1 through stage 4 chronic kidney disease, or unspecified chronic kidney disease; I48.21 Permanent atrial fibrillation; I50.32 Chronic diastolic (congestive) heart failure; E86.0 Dehydration; E03.9 Hypothyroidism, unspecified; E66.01 Morbid (severe) obesity due to excess calories; I89.0 Lymphedema, not elsewhere classified; J44.9 Chronic obstructive pulmonary disease, unspecified; E78.00 Pure hypercholesterolemia, unspecified; I27.20 Pulmonary hypertension, unspecified; N18.31 Chronic kidney disease, stage 3a; I70.0 Atherosclerosis of aorta; E87.6 Hypokalemia; F32.A Depression, unspecified; N40.0 Benign prostatic hyperplasia without lower urinary tract symptoms; I25.10 Atherosclerotic heart disease of native coronary artery without angina pectoris; Z66 Do not resuscitate; Z87.891 Personal history of nicotine dependence; Z98.1 Arthrodesis status; Z79.02 Long term (current) use of antithrombotics/antiplatelets; Z86.73 Personal history of transient ischemic attack (TIA), and cerebral infarction without residual deficits; Z98.61 Coronary angioplasty status; Z68.38 Body mass index [BMI] 38.0-38.9, adult; Z79.01 Long term (current) use of anticoagulants
CPT/HCPCS: 71046; 74019; 80048; 80053; 80061; 81003; 83735; 83880; 84443; 84484; 85025; 93005; 93306; 94640; 96374; 96375; 97116; 97162; 97166; 99285; Q9950

== ENCOUNTER → 2023-12-14 11:58 | Outpatient (REF) | payer MEDICARE, SELFPAY ==
[2023-12-15 14:22] LABS: Glucose 111 mg/dl (70-99)
[2023-12-15 14:23] LABS: Blood Urea Nitrogen 24 mg/dl (9-20); Carbon Dioxide 22 mmol/L (22-30); Chloride 105 mmol/L (98-107); Potassium 4.1 mmol/L (3.5-5.1); Sodium 138 mmol/L (135-145); eGFR 42.49
== END ==
LOC: CLAB 11:58
PROVIDERS: ATTENDING PHYSICIAN Internal Medicine Cardiovascular Disease; FAMILY PHYSICIAN Internal Medicine
DX: E78.2 Mixed hyperlipidemia (principal); D50.9 Iron deficiency anemia, unspecified; N18.30 Chronic kidney disease, stage 3 unspecified; E03.9 Hypothyroidism, unspecified
CPT/HCPCS: 80048

== ENCOUNTER 2024-02-17 04:30 | Inpatient (IN) | payer MEDICARE, SELFPAY ==
[2024-02-17] VITALS (12 sets, daily range): BP systolic 104–175; BP diastolic 53–87; PULSE 61; O2SAT 97; BMI 38.9; BMI 38.3
--- NOTE | 2024-02-17 01:06 | ED.GENMED ---
History of Present Illness
General
Chief Complaint: Weakness
Source: patient
Exam Limitations: none
Time Seen by Provider: 02/17/24 00:40
History of Present Illness
History of Present Illness:
84-year-old male presents from home with progressive weakness over the past 4 days. He states he has been falling frequently secondary to the bilateral lower extremity weakness. He estimates he fell about 4 times today but did not sustain any
significant injury. He notes leg swelling. He also notes decreased appetite and decreased taste. He notes a cough. He denies fever. No abdominal pain nausea vomiting or chest pain.
Past History
Past History
ED Past Medical History: Arrthythmia (Paroxysmal atrial fibrillation), CAD, CHF, COPD, CVA, HTN, Hypercholesterolemia and Other (CKD)
ED Past Surgical History: Cardiac and Orthopedic (Resection of a thoracic spine lesion and spinal fusion)
Social History
Tobacco: Former smoker
Alcohol: None
Drug: None
Personal:
Living: alone
Employment: Retired
Family History
Family History: Other (Noncontributory)
Phy Exam
Physical Exam
Physical Exam:
General: Well-appearing male no acute respiratory distress
HEENT: Normocephalic atraumatic
Heart: Regular rate and rhythm no murmurs
Lungs: Clear no obvious wheeze or rales
Extremities: Pitting edema bilateral lower extremity
Skin: Warm no rash
Abdomen is soft nontender
Course
Orders/Labs/Results
Orders:
Orders
02/17/24 00:49
Urinalysis Reflex To Culture Urgent
CR Chest - 2 Views Urgent
Comment:
Reason For Exam: weakness
02/17/24 00:58
Comprehensive Metabolic Panel Urgent
02/17/24 00:59
COVID-19 Antigen Urgent
Source: Nasal Swab
Complete Blood Count/With Diff Urgent
NT-proBNP Urgent
Influenza A+B Rapid Molecular Urgent
LG Source: Nasal Swab
Specimen Description:
Abnormal Lab Results
02/17/24 02/17/24
00:58 00:59
WBC 12.6 H 10^3/uL
(4.8-10.8)
RBC 3.82 L 10^6/uL
(4.70-6.10)
Hgb 11.2 L g/dL
(13.0-18.0)
Hct 35.1 L %
(39.0-52.0)
MCHC 31.9 L g/dL
(33.0-37.0)
Abs Immat Gran (auto) 0.1 H 10^3/uL
(0-0.05)
Absolute Neuts (auto) 10.6 H 10^3/uL
(1.4-6.5)
Absolute Lymphs (auto) 1.0 L 10^3/uL
(1.2-3.4)
Absolute Monos (auto) 0.9 H 10^3/uL
(0.1-0.6)
Immature Gran % 0.7 H %
(0-0.5)
Neutrophils % 84.0 H %
(42.2-75.2)
Lymphocytes % 7.7 L %
(20.5-51.1)
Chloride 110 H mmol/L
(98-107)
Carbon Dioxide 17 L mmol/L
(22-30)
BUN 34 H mg/dl
(9-20)
Creatinine 1.6 H mg/dL
(0.7-1.3)
Calcium 8.0 L mg/dl
(8.4-10.2)
02/17/24 00:59
02/17/24 00:58
Vital Signs
Initial and Last Documented VS:
Initial Vital Signs
Temp Pulse Resp BP Pulse Ox
98.7 F 68 26 118/64 98
02/17/24 00:21 02/17/24 00:21 02/17/24 00:21 02/17/24 00:21 02/17/24 00:21
Last Documented Vital Signs
Temp Pulse Resp BP Pulse Ox
98.7 F 57 14 110/53 98
02/17/24 00:21 02/17/24 01:15 02/17/24 01:15 02/17/24 00:50 02/17/24 01:15
MDM/Problems Addressed
Differential Diagnosis Includes:
Generalized weakness with falls. Question anemia versus electrolyte abnormality versus infectious process
Start workup with broad testing including labs chest x-ray urinalysis.
*Critical Care Note
Total Time (30-74mins, 75-104mins- exclusive of procedures): Not Applicable
Update Note
Update Note:
BNP elevated. Patient does appear slightly volume overloaded. Suspect CHF flare. Patient states that he has been following frequently and as much is 4 times today. Discussed with emergency room attending. Will keep in hospital. Lasix ordered
IV. COVID-negative.
ED Attending Note
-
Portions of this chart may have been created with voice recognition software.� Occasional wrong word or��sound alike� substitutions may have occurred due to the inherent limitations of voice recognition software.
Discharge Plan
Departure
Patient Disposition: Admit
Date of Disposition: 02/17/24
Time of Disposition: 02:27
Admit to: Telemetry
Presentation/result/management discussed w/ accepting MD/DO: Hospitalist
Discharge Problem:
CHF
Prescriptions:
No Action
atorvastatin 40 MG tablet
40 mg PO QPM
dabigatran etexilate [Pradaxa] 150 MG capsule
150 mg PO BID
tamsulosin 0.4 MG capsule
0.4 mg PO HS
finasteride 5 MG tablet
5 mg PO HS
metoprolol tartrate 25 MG tablet
25 mg PO BID
levothyroxine 112 MCG tablet
112 mcg PO DAILY
fluoxetine [Prozac] 40 MG capsule
40 mg PO HS
torsemide 20 mg tablet
40 mg PO BID@0800,1600
folic acid 1 mg Tablet
1 mg PO DAILY
potassium chloride [Klor-Con] 20 mEq packet
20 meq PO BID@0800,1600
hydralazine 25 mg Tablet
25 mg PO TID Qty: 1 0RF
clopidogrel 75 mg Tablet
75 mg PO DAILY Qty: 1 0RF
Striverdi Respimat 2.5 mcg/actuation Mist
2.5 mcg inhalation R DAILY Qty: 4 0RF
mirtazapine 15 mg Tablet
15 mg PO HS
Rx Instructions:
stop 45mg
dapagliflozin propanediol 10 mg Tablet
10 mg PO DAILY 30 Days Qty: 30 0RF
tramadol 50 mg Tablet
50 mg PO Q6HPRN PRN (Reason: moderate pain) Qty: 4 0RF
Anoro Ellipta 62.5-25 mcg/actuation Blister With Device
1 inh INHALATION R DAILY
colchicine 0.6 mg tablet
0.3 mg PO DAILYPRN PRN (Reason: gout flares)
Rx Instructions:
take 2 tablet at once for flare up then 1 tablet there after
spironolactone 25 mg Tablet
25 mg PO DAILY
Referrals:
Rajiv Pavon MD [Family Provider] -
Interventions
Interventions:
*Risk Screen - Suicide Last Done: 02/17/24 00:21
*General Assessment Last Done: 02/17/24 00:40
*Neglect/Abuse Screening Last Done: 02/17/24 00:21
ED- Fall Risk Assessment Last Done: 02/17/24 00:40
*ED COVID-19 Vaccine History Last Done: 02/17/24 00:40
ED- Cardiac Assessment Last Done: 02/17/24 01:00
ED-Musculoskeletal Assessment Last Done: 02/17/24 00:44
ED- Neurological Assessment Last Done: 02/17/24 00:43
ED- Pulmonary Assessment Last Done: 02/17/24 00:43
ED-Skin Assessment Last Done: 02/17/24 01:00
Discharge Date and Time
Print Language: ALBANIAN
[2024-02-17 01:28] LABS: % Basophils 0.2 % (0-2); % Eosinophils 0.4 % (0-6); % Immature Granulocytes 0.7 % (0-0.5); % Lymphocytes 7.7 % (20.5-51.1); Absolute Eosinophils 0.1 10^3/uL (0-0.7); Absolute Immature Granulocytes 0.1 10^3/uL (0-0.05); Absolute Monocytes 0.9 10^3/uL (0.1-0.6); Absolute Neutrophils 10.6 10^3/uL (1.4-6.5); Hematocrit 35.1 % (39.0-52.0); Hemoglobin 11.2 g/dL (13.0-18.0); Mean Corp Hgb Conc. 31.9 g/dL (33.0-37.0); Mean Corpuscular Hgb 29.3 pg (27.0-31.0); Mean Corpuscular Volume 91.9 fL (80.0-94.0); Mean Platelet Volume 9.8 fL (7.4-10.4); Nucleated Red Blood Cells % 0 % (-); Platelet Count 288 10^3/uL (130-400); Red Blood Cell Count 3.82 10^6/uL (4.70-6.10); Red Cell Dist. Width 13.3 % (11.5-14.5); White Blood Cell Count 12.6 10^3/uL (4.8-10.8)
[2024-02-17 01:32] LABS: COVID-19 Antigen Negative (Negative)
[2024-02-17 01:36] LABS: NT-proBNP 3940 pg/ml
[2024-02-17 01:56] LABS: ALT (SGPT) 13 U/L (0-50); AST (SGOT) 20 U/L (17-59); Albumin 3.7 g/dl (3.5-5.0); Alkaline Phosphatase 63 U/L (38-126); Blood Urea Nitrogen 34 mg/dl (9-20); Carbon Dioxide 17 mmol/L (22-30); Chloride 110 mmol/L (98-107); Estimated Creatinine Clearance 45 ml/min; Glucose 99 mg/dl (70-99); Potassium 4.4 mmol/L (3.5-5.1); Sodium 142 mmol/L (135-145); Total Bilirubin 0.7 mg/dl (0.2-1.3); Total Protein 6.3 g/dl (6.3-8.2); eGFR 42.22
[2024-02-17] MEDS: LASIX 40 MG IV (02:32)
--- NOTE | 2024-02-17 03:46 | HPS.HSE ---
Family Physician
-
Family Physician: Rajiv Pavon
Chief Complaint
-
Frequent falls
History of Present Illness
This is an 84-year-old with a history of gout, CHF with preserved EF, atrial fibrillation on anticoagulation with Pradaxa, COPD, hypertension, prior CVA who presents to the emergency department with recent episodes of multiple falls at home.
Patient reports that this falls off because when he gets up and attempts to walk. There is no associated loss of consciousness. He does report feeling lightheaded when he gets up and that has been specifically noted for about the last 4 days. He
reports that he has been no vertigo nausea or vomiting. He denies any numbness tingling. He denies any focal weakness in his leg or arm. In particular today the patient reported that as he attempted to stand up and walk he felt lightheaded and
fell without passing out. Was able to get up on his own again but his legs felt very weak and he had to call EMS. This seems to be department over the last 3 to 4 days. The patient ambulates with a walker for the last 1 year. This is the fourth
and he has been falling while using a walker. Prior to being at work reports that he has had frequent falls. Patient denies any back pain. Denies any other injuries. He denies incontinence of the bladder or bowel. He denies having constipation.
Patient denies any acute changes in his medications. He reported that he was on increased dose of torsemide but states he has been back to his usual dose of 40 twice daily. He reports that his follows with regularly and his weight has been steady
has not been any significant weight gain or weight loss. He reports that his appetite is reduced due to lack of taste. Patient denies any vision changes. Headaches, cough, fevers, chills, sick contacts. He feels his legs are slightly more
swollen. He has a 4 pillow orthopnea which is unchanged. He denies any dyspnea on exertion. He denies shortness of breath at rest. The patient denies having palpitations. He denies any chest pain. He denies any melena or hematochezia. He has
not been any recent diarrhea.
In the emergency department the patient was afebrile, blood pressure was 120/80, pulse 53 with oxygen saturation of 90% on room air. Chest x-ray appears clear to me. ECG is pending. White count was 12 hemoglobin 11.2
To eat with urology from prior. Chemistry shows a BUN of 34 and a creatinine of 1.6 which is unchanged from prior. Bicarb was 17. Electrolytes otherwise unremarkable. COVID test is negative. LFTs within normal limits. His BNP is elevated at
3900 which is similar to his most recent BNP is over the last few months.
Medical History
Past Medical History
Past Medical History: Reports Other
Additional Past Medical History:
CHF with preserved EF
Atrial fibrillation on anticoagulation
BPH
COPD
Morbid obesity
Hypothyroid
Gout
CAD CAD status post PCI earlier this year
Past Surgical History: Reports None
Social History
Tobacco: Non-smoker
Alcohol: None
Drug: None
Personal: Single
Living: Alone (has home health aid)
Employment: Retired
Family History
Family History: Not pertinent
Allergies / Home Medications
Allergies reflects when Allergies were last updated in [email or web address].
Home Medications with original date entered in [email or web address]
Allergy/Medication List:
Allergies
Allergy/AdvReac Type Severity Reaction Status Date / Time
No Known Allergies Allergy Verified 02/17/24 00:25
Home Medications
atorvastatin 40 mg tablet 40 mg PO QPM High cholesterol 01/19/20
dabigatran etexilate 150 mg capsule (Pradaxa) 150 mg PO BID Blood clot prevention/tx 01/19/20
finasteride 5 mg tablet 5 mg PO HS Urinary issue 04/07/20
metoprolol tartrate 25 mg tablet 25 mg PO BID Blood pressure 04/07/20
tamsulosin 0.4 mg capsule 0.4 mg PO HS Urinary issue 04/07/20
levothyroxine 112 mcg tablet 112 mcg PO DAILY Thyroid 07/21/21
fluoxetine 40 mg capsule (Prozac) 40 mg PO HS Mental Health/Anxiety 11/02/21
folic acid 1 mg tablet 1 mg PO DAILY Supplement 06/19/23
potassium chloride 20 mEq oral packet (Klor-Con) 20 meq PO BID@0800,1600 Supplement 06/19/23
torsemide 20 mg tablet 40 mg PO BID@0800,1600 Fluid Retention/Swelling 06/19/23
clopidogrel 75 mg tablet 75 mg PO DAILY #1 tab 06/25/23
hydralazine 25 mg tablet 25 mg PO TID #1 tab 06/25/23
olodaterol 2.5 mcg/actuation mist for inhalation (Striverdi Respimat) 2.5 mcg inhalation R DAILY #4 grams 06/25/23
mirtazapine 15 mg tablet 15 mg PO HS Mental Health 08/28/23
dapagliflozin propanediol 10 mg tablet 10 mg PO DAILY 30 days #30 tabs 09/04/23
tramadol 50 mg tablet 50 mg PO Q6HPRN PRN moderate pain #4 tabs 09/04/23
colchicine 0.6 mg tablet 0.3 mg PO DAILYPRN PRN gout flares 12/10/23
spironolactone 25 mg tablet 25 mg PO DAILY 12/10/23
umeclidinium 62.5 mcg-vilanterol 25 mcg/actuation powdr for inhalation (Anoro Ellipta) 1 inh inhalation R DAILY 12/10/23
Review of Systems
-
History Source: Patient
Constitutional: Reports No Symptoms
EENT: Reports No Symptoms
Respiratory: Reports No Symptoms
Cardiac: Reports No Symptoms
Abdomen/GI: Reports No Symptoms
: Reports No Symptoms
Musculoskeletal: Reports No Symptoms
Skin: Reports No Symptoms
Neurological: Reports Weakness
Endocrine: Reports No Symptoms
Hematologic/Lymphatic: Reports No Symptoms
Psych: Reports No Symptoms
Physical Exam
Vital Signs
Vital Signs
Temp Pulse Resp BP Pulse Ox
98.7 F 53 16 132/87 98
02/17/24 00:21 02/17/24 02:32 02/17/24 02:30 02/17/24 02:32 02/17/24 02:30
Physical Exam
General: No Apparent Distress, Comfortable, Appears Chronically Ill and Obese
HEENT: NormoCephalic, Anicteric, Moist mucous membranes, Atraumatic, PERRLA, [place] Conjunctivae and Neck Nontender
Respiratory: Clear
Cardiac: S1/S2 and Irregular Rhythm
Breast: Deferred by me
GI: Soft, Non Tender, Normal Bowel Sounds and No Hepatosplenomegaly
Rectal: Deferred by Provider
Genito-urinary: No costovertebral tender
Musculoskeletal: No Clubbing, No Cyanosis, Edema, Left Lower Extremity (1+ pedal edema) and Edema, Right Lower Extremity (1 + pedal edema)
Skin: Warm
Neuro: AO x 3, No Motor Deficits and Cranial Nerves Intact
Hematologic/Lymphatic: No Lymphadenopathy
Psych: Calm
Laboratory Results
-
02/17/24 00:59
02/17/24 00:58
Laboratory Results
Total Bilirubin 0.7 mg/dl (0.2-1.3) 02/17/24 00:58
AST 20 U/L (17-59) 02/17/24 00:58
ALT 13 U/L (0-50) 02/17/24 00:58
Alkaline Phosphatase 63 U/L (38-126) 02/17/24 00:58
Data Reviewed
-
Diagnostic Radiology: Image Personally Visualized and interpreted
Medical Tests (Nuc Med, Echo, EKG etc): Image Personally Visualized and interpreted
Lab Data: Labs Reviewed by me
Old Records: Reviewed
Impression/Plan
-
IMPRESSION:
84-year-old obese male with multiple comorbidities who presents to the emergency department following a week of multiple falls and having up to 4 falls today. Lab work in the ED was mostly unremarkable. His initial vital signs are stable. Chest
x-ray shows no acute findings.
PLAN:
1.Falls/weakness -patient reports fall sites often associated with standing to start walking. He reports lightheadedness but no vertigo. Suspect possible orthostatic in the setting of aggressive treatment and management of face CHF, this also be
secondary to rate control and A-fib versus generalized weakness, hypothyroidism or myopathy. No evidence of acute neurological changes to suggest TIA or stroke or myelopathy. No radicular findings.
- admit to telemetry
- check orthostatic vital signs, hold further IV diuresis until clearly not orthostatic
- check tsh, cpk, b12,
- check u/a, COVID and flu are negative
- monitor tele and check ecg
- last echo was just 2 months ago with preserved EF, he looks euvolemic to slightly hyper and has no murmurs or new exertional dyspnea, will hold off on echo
- denies any focal joint pains. Denies vertigo
- PT evaluation
- care management
2. CHF - CHF w/ preserved EF. BNP 3900 is at the upper level of his range this last year. No rales on exam, no JVD, and no definitive pulm edema. He has bilateral 1+ pedal edema. Got 40 of lasix in ED. Not in any significant exacerbation on my
exam. Using salt/fluid restriction with his current torsemide may be adequate.
- orthostatics as above
- continue torsemide 40 po bid unless + orthostatic vital signs, then hold and re-eval
- similarly will continue metoprolol, spironolactone, and dapagliflozlin
- hold hydralazine pending eval
- salt and fluid restrictions, daily weights
3. AFIB - Rate controlled in the 50s
- continue metoprolol and pradaxa
4. Hypothyroid - On levothyroxine
- check tsh
- continue levothyroxine
5. COPD - No acute symptoms
- continue inhalers
6. BPH - No acute changes in urinary symptoms.
- continue finesteride and tamsulosin
DVT PPX - on pradaxa
Code status - DNR
[2024-02-17 03:58] LABS: Urine Albumin Negative (Neg - Trace); Urine Bilirubin Negative (Negative); Urine Character Clear (Clear); Urine Color Yellow; Urine Glucose Trace (Negative); Urine Ketone Negative (Negative); Urine Leukocyte Negative (Negative); Urine Nitrite Negative (Negative); Urine Occult Blood Negative (Negative); Urine Specific Gravity 1.015 (<1.030); Urine Urobilinogen Negative (Neg - 1+)
[2024-02-17] MEDS: SPIRIVA RESPIMAT 2.5 MCG 2 PUFF INH (07:33)
[2024-02-17] MEDS: STRIVERDI RESPIMAT 2 PUFF INH (07:33)
[2024-02-17] MEDS: SYNTHROID 112 MCG PO (07:53)
[2024-02-17] MEDS: DEMADEX 40 MG PO ×2 (07:53→15:56)
[2024-02-17] MEDS: ALDACTONE 25 MG PO (07:54)
[2024-02-17] MEDS: LOPRESSOR 25 MG PO ×2 (07:54→20:25)
[2024-02-17] MEDS: FARXIGA 10 MG PO (07:54)
[2024-02-17] MEDS: FOLVITE 1 MG PO (07:54)
[2024-02-17] MEDS: PLAVIX 75 MG PO (07:54)
[2024-02-17] MEDS: PRADAXA 150 MG PO ×2 (07:54→20:25)
--- NOTE | 2024-02-17 08:05 | W.PN.UPDATE ---
Update Note
Progress Note Update
Patient seen and examined. No changes to management and will follow-up on plan as established by admission note earlier this morning.
--- NOTE | 2024-02-17 14:33 | CM ---
retail area manager reviewed patient's chart and met with patient and patient resides in a 2 story home with 2 small steps to enter, patient is independent with adl's and has 2 walkers that he uses with ambulation, patient has a stair glide to 2nd floor,
[facility] 3 days a week. Per physical therapy they are recommending skilled placement, options reviewed with patient and patient has selected [facility], [facility] and [facility], referrals
sent to facilities.
PCP: Dr. Pavon
[facility]
Plan; Possible skilled placement.
[2024-02-17] MEDS: LIPITOR 40 MG PO (17:03)
[2024-02-17] MEDS: TYLENOL 650 MG PO (17:03)
--- NOTE | 2024-02-17 17:16 | CON.CAR ---
Consultation
Consultation Request
Date/Time Consultation Requested: 02/17/2024 at 9 AM
Date/Time Consultation Performed: 02/17/2024 at 4 PM
Requesting Provider: Hospitalist
Performing Provider: Dr. Plasencia
Reason for Consultation: Falls.
Medical History
-
History of Present Illness:
84-year-old male with past medical history below who presents with falls. Normally walks with a walker he states he was walking downstairs and then his legs just seem to give out. Denies having any loss of consciousness he was able to get himself
back up and used his chairlift to get up the stairs he then transition to a walker and while walking again it felt like his legs gave out from him. No loss of consciousness. No episodes of lightheadedness or dizziness no episodes of syncope
reported.
Past medical history
CAD - LAD stent 06/2023
Atrial fibrillation, permanent
Heart failure preserved ejection fraction
CKD
CVA
COPD
CAD
Hypercholesterolemia
obesity
Echocardiogram 12/11/2023 normal left ventricular function ejection fraction 50 to 55%. Enlarged right ventricular size but normal right ventricular function no significant valvular disease
Allergies / Home Medications
Allergy/AdvReac Type Severity Reaction Status Date / Time
No Known Allergies Allergy Verified 02/17/24 00:25
�Medication �Instructions �Recorded �Confirmed �Type
atorvastatin 40 mg tablet 40 mg PO QPM High cholesterol 01/19/20 12/10/23 History
dabigatran etexilate 150 mg 150 mg PO BID Blood clot 01/19/20 12/10/23 History
capsule (Pradaxa) prevention/tx
finasteride 5 mg tablet 5 mg PO HS Urinary issue 04/07/20 12/10/23 History
metoprolol tartrate 25 mg tablet 25 mg PO BID Blood pressure 04/07/20 12/10/23 History
tamsulosin 0.4 mg capsule 0.4 mg PO HS Urinary issue 04/07/20 12/10/23 History
levothyroxine 112 mcg tablet 112 mcg PO DAILY Thyroid 07/21/21 12/10/23 History
fluoxetine 40 mg capsule (Prozac) 40 mg PO HS Mental Health/Anxiety 11/02/21 12/10/23 History
folic acid 1 mg tablet 1 mg PO DAILY Supplement 06/19/23 12/10/23 History
potassium chloride 20 mEq oral 20 meq PO BID@0800,1600 Supplement 06/19/23 12/10/23 History
packet (Klor-Con)
torsemide 20 mg tablet 40 mg PO BID@0800,1600 Fluid 06/19/23 12/10/23 History
Retention/Swelling
clopidogrel 75 mg tablet 75 mg PO DAILY #1 tab 06/25/23 12/10/23 Rx
hydralazine 25 mg tablet 25 mg PO TID #1 tab 06/25/23 12/10/23 Rx
olodaterol 2.5 mcg/actuation mist 2.5 mcg inhalation R DAILY #4 grams 06/25/23 12/10/23 Rx
for inhalation (Striverdi Respimat)
mirtazapine 15 mg tablet 15 mg PO HS Mental Health 08/28/23 12/10/23 History
dapagliflozin propanediol 10 mg 10 mg PO DAILY 30 days #30 tabs 09/04/23 12/10/23 Rx
tablet
tramadol 50 mg tablet 50 mg PO Q6HPRN PRN moderate pain 09/04/23 12/10/23 Rx
#4 tabs
colchicine 0.6 mg tablet 0.3 mg PO DAILYPRN PRN gout flares 12/10/23 12/10/23 History
spironolactone 25 mg tablet 25 mg PO DAILY 12/10/23 12/10/23 History
umeclidinium 62.5 mcg-vilanterol 1 inh inhalation R DAILY 12/10/23 12/10/23 History
25 mcg/actuation powdr for
inhalation (Anoro Ellipta)
Physical Exam
Vital Signs
Temp Pulse Resp BP Pulse Ox
97.3 F 61 20 114/70 95
10/13/24 11:44 02/17/24 11:44 02/17/24 11:44 02/17/24 11:44 02/17/24 07:39
Lab Results
02/17/24 00:59
02/17/24 00:58
Vnr-V-Quyrnrqugxk Pept 3940 pg/ml 02/17/24 00:59
Impression / Plan
-
Falls exact etiology unclear patient states his legs just give out. No report of syncope no clear prodromal symptoms. Possibility of orthostatic hypotension or presyncopal symptoms a consideration. Could also be related to leg weakness and
ambulatory dysfunction.
-Orthostatic vitals
-Telemetry
-PT eval
.
Heart failure preserved ejection fraction
-Respiratory status stable
-Continue current therapy
-Follow weights
-Orthostatic vitals
.
CAD. PCI of the LAD 06/20/2023
-Stable and at angina continue Pradaxa and Plavix.
.
A-fib. Permanent
-Rate controlled
-Continue with rate control anticoagulation
.
CKD. Stable
[2024-02-17] MEDS: PROZAC 40 MG PO (22:38)
[2024-02-17] MEDS: PROSCAR 5 MG PO (22:40)
[2024-02-17] MEDS: FLOMAX 0.4 MG PO (22:40)
[2024-02-18] VITALS (7 sets, daily range): BP systolic 113–149; BP diastolic 54–87; PULSE 62–68; BMI 38.5
[2024-02-18] MEDS: MELATONIN 5 MG PO ×2 (00:08→22:22)
[2024-02-18 02:38] LABS: % Basophils 0.2 % (0-2); % Eosinophils 1.7 % (0-6); % Immature Granulocytes 0.5 % (0-0.5); % Lymphocytes 14.1 % (20.5-51.1); % Monocytes 8.8 % (1.7-9.3); % Neutrophils 74.7 % (42.2-75.2); Absolute Eosinophils 0.2 10^3/uL (0-0.7); Absolute Immature Granulocytes 0.1 10^3/uL (0-0.05); Absolute Lymphocytes 1.3 10^3/uL (1.2-3.4); Absolute Monocytes 0.8 10^3/uL (0.1-0.6); Absolute Neutrophils 6.9 10^3/uL (1.4-6.5); Hemoglobin 10.9 g/dL (13.0-18.0); Mean Corp Hgb Conc. 32.1 g/dL (33.0-37.0); Mean Corpuscular Hgb 30.6 pg (27.0-31.0); Mean Corpuscular Volume 95.5 fL (80.0-94.0); Mean Platelet Volume 9.9 fL (7.4-10.4); Nucleated Red Blood Cells % 0 % (-); Platelet Count 250 10^3/uL (130-400); Red Blood Cell Count 3.56 10^6/uL (4.70-6.10); Red Cell Dist. Width 13.1 % (11.5-14.5); White Blood Cell Count 9.2 10^3/uL (4.8-10.8)
[2024-02-18 02:46] LABS: Troponin I < 0.012 ng/ml
[2024-02-18 03:06] LABS: Blood Urea Nitrogen 42 mg/dl (9-20); Calcium 8.3 mg/dl (8.4-10.2); Carbon Dioxide 23 mmol/L (22-30); Chloride 107 mmol/L (98-107); Creatine Phosphokinase 56 U/L (55-170); Estimated Creatinine Clearance 42 ml/min; Glucose 124 mg/dl (70-99); Magnesium 2.5 mg/dl (1.6-2.3); Phosphorus 3.9 mg/dl (2.5-4.5); Potassium 4.7 mmol/L (3.5-5.1); Sodium 143 mmol/L (135-145); eGFR 39.26
[2024-02-18 03:37] LABS: TSH Reflex To Free T4 3.55 uIU/ml (0.47-4.68)
[2024-02-18 04:02] LABS: Vitamin B12 456 pg/ml (239-931)
[2024-02-18] MEDS: SYNTHROID 112 MCG PO (05:12)
[2024-02-18] MEDS: STRIVERDI RESPIMAT 2 PUFF INH (07:25)
[2024-02-18] MEDS: SPIRIVA RESPIMAT 2.5 MCG 2 PUFF INH (07:25)
[2024-02-18] MEDS: ALDACTONE 25 MG PO (08:22)
[2024-02-18] MEDS: PLAVIX 75 MG PO (08:23)
[2024-02-18] MEDS: FARXIGA 10 MG PO (08:23)
[2024-02-18] MEDS: FOLVITE 1 MG PO (08:23)
[2024-02-18] MEDS: LOPRESSOR 25 MG PO ×2 (08:23→20:35)
[2024-02-18] MEDS: DEMADEX 40 MG PO ×2 (08:23→15:45)
[2024-02-18] MEDS: PRADAXA 150 MG PO ×2 (08:24→20:35)
--- NOTE | 2024-02-18 09:01 | W.PN.CD ---
Today's Communication / Plan
-
No new recommendations
Fall was assoc with leg weakness and not cardiac issues
Cont current meds
We will sign off please call with questions/concerns
Impression / Plan
-
Falls exact etiology unclear patient states his legs just give out from leg weakness he had no chest pain and denies loss of consciousness
-pt eval
.
CP overnight
- burning right sided exacerbated by movement
- does not appear cardiac in nature
.
Heart failure preserved ejection fraction chronic
-Respiratory status stable
-Continue current therapy
-Follow weights
-Orthostatic vitals
.
CAD. PCI of the LAD 06/20/2023
-Stable and w/o angina continue Pradaxa and Plavix.
.
A-fib. Permanent
-Rate controlled
-Continue with rate control anticoagulation
.
CKD. Stable
Subjective:
Complains of gouty knee pain and MSK chest pain otherwise no new complaints
Physical Exam
Vital Signs/Labs
Vital Signs
Temp Pulse Resp BP Pulse Ox
97.6 F 80 20 145/60 97
02/18/24 07:37 02/18/24 08:22 02/18/24 07:37 02/18/24 08:22 02/18/24 07:37
02/17/24 02/18/24 02/19/24
06:59 06:59 06:59
Actual Weight 267 lb
02/18/24 01:56
02/18/24 01:56
Magnesium 2.5 mg/dl (1.6-2.3) H 02/18/24 01:56
02/17/24
00:59
Cum-D-Iodjrahgbfa Pept 3940
LAB Results
02/18/24
01:56
Troponin I < 0.012
Physical Exam
Constitutional: No acute distress
EENT: Anicteric
Cardiovascular: Rhythm/rate is irregular
Respiratory: Respiratory effort normal and Lungs clear to auscul.
GI: Soft
Neuro/Psych: AO x 3
Data Reviewed
-
Date of Service: February 18, 2024
EKG: Tracing Personally Visualized and interpreted (af)
Echo: Report Reviewed by me
Labs: Labs Reviewed by me
[2024-02-18] MEDS: TYLENOL 650 MG PO ×2 (09:32→20:45)
[2024-02-18 09:48] LABS: Troponin I < 0.012 ng/ml
--- NOTE | 2024-02-18 12:56 | CM ---
CM reviewed chart, spoke with Jessy in Admissions at [facility], per admissions , can accept patient pending bed availability/day of discharge. Per Jessy, patient is covered 100% through days 1-20, days 21-100 copay $204 a day. Patient seen, aware of
copay days. Patient preference remains [facility]. CM will continue to follow for all discharge planning needs.
Plan; SNF, preference [facility], pending bed availability/ day of discharge.
--- NOTE | 2024-02-18 16:24 | W.PN.HOSP.TC ---
Today's Communication/Plan
-
see plan above
Assessment / Plan
Assessment / Plan
Recurrent falls-suspect probably secondary to orthostatic hypotension. No evidence of syncope. Follow on tele.
Orthostatic hypotension without any extrarenal losses. Check TSH cortisol. With the weight loss might need to consider changing the dose of his medication. No recent adjustments made. Awaiting med rec to be completed. apply AKIKO delgadillo for
now. I suspect this may be medication related. He is on large doses of diuretics along with GDMT medication.
CHF - CHF w/ preserved EF. BNP 3900 is at the upper level of his range this last year. No rales on exam, no JVD, and no definitive pulm edema. He has bilateral 1+ pedal edema. Got 40 of lasix in ED. Using salt/fluid restriction with his
current torsemide may be adequate.
- orthostatics as above
- Clinically compensated ;pt with sig wt loss this year . Decrease torsemide , currently taking 40 po bid but with sig drop in BP will hold it today
- similarly will continue metoprolol, spironolactone, and dapagliflozlin -reeval dosing ; await med rec.
- hold hydralazine
- salt and fluid restrictions, daily weights
AFIB - Rate controlled in the 50s
- continue metoprolol and pradaxa
Hypothyroid - On levothyroxine
- check tsh
- continue levothyroxine
COPD - No acute symptoms
- continue inhalers
BPH - No acute changes in urinary symptoms.
- continue finesteride and tamsulosin
DVT PPX - on pradaxa
Code status - DNR
total time spent on today's encounter was 52 minutes which included time spent in counseling the patient regarding diagnosis and treatment plan as listed above, goals of care, and symptom management. Case was discussed with nursing staff,
specialists . All labs and imaging personally reviewed by me. Remainder the time spent in detailed review of previous records, lab data, imaging, and other medical provider documentation.
Anticipated Discharge: 24 - 48 hours
Subjective/Interval History
-
Date of Service: February 18, 2024
He may have had 1 or 2 falls before but this last week he had 4 of them.
All of the management is trying to go from lying to sitting to standing position. He feels lightheaded along with sudden onset of weakness in his legs. No loss of consciousness.
He is noted to be orthostatic here in the hospital. He says he is never had problems like this before. No recent GI losses or dehydration issues. No recent suggestions of infection.
He does admit weight loss of 30 pounds since spring. He lost appetite but no GI symptoms again.
Objective Data
-
Vital Signs:
Vital Signs
Temp Pulse Resp BP Pulse Ox
97.9 F 57 20 137/65 98
02/18/24 15:22 02/18/24 15:22 02/18/24 15:22 02/18/24 15:45 02/18/24 15:22
I&O
02/17/24 02/18/24 02/19/24
06:59 06:59 06:59
Intake Total 450 / 450
Output Total 1375 / 1375
Balance -925 / -925
Review of Systems
-
Respiratory: Denies Trouble Breathing
Cardiac: Denies Chest Pain
Abdomen/GI: Denies Abdominal Pain, Nausea or Vomiting
Neuro: Reports Dizzy; Denies Headache
Physical Exam
-
General: No Apparent Distress
HEENT: Moist Mucous Membranes
Respiratory: Clear to Auscultation
Cardiac: S1/S2 and Irregular Rhythm; Negative Tachycardic
GI: Soft and Nontender
Neuro: AO x 3 and No Motor Deficits
Psych: Calm; Negative Confused
Data Reviewed
-
Labs: Labs Reviewed by me
[2024-02-18] MEDS: LIPITOR 40 MG PO (17:03)
[2024-02-18] MEDS: PROZAC 40 MG PO (22:21)
[2024-02-18] MEDS: PROSCAR 5 MG PO (22:21)
[2024-02-18] MEDS: FLOMAX 0.4 MG PO (22:21)
[2024-02-19] MEDS: TYLENOL 650 MG PO ×2 (02:57→08:57)
[2024-02-19 03:44] VITALS: BP 124/58
[2024-02-19] MEDS: SYNTHROID 112 MCG PO (05:17)
[2024-02-19 06:00] VITALS: BMI 37.8
[2024-02-19] MEDS: LOPRESSOR 25 MG PO ×2 (07:23→19:53)
[2024-02-19] MEDS: PRADAXA 150 MG PO ×2 (07:23→19:54)
[2024-02-19] MEDS: FARXIGA 10 MG PO (07:23)
[2024-02-19] MEDS: FOLVITE 1 MG PO (07:23)
[2024-02-19] MEDS: PLAVIX 75 MG PO (07:24)
[2024-02-19 07:34] VITALS: BP 107/68; BP 114/59; PULSE 60; PULSE 65
[2024-02-19] MEDS: STRIVERDI RESPIMAT INH (08:50)
[2024-02-19] MEDS: SPIRIVA RESPIMAT 2.5 MCG INH (08:50)
[2024-02-19] MEDS: COLCHICINE 0.6 MG PO ×2 (09:01→21:09)
[2024-02-19 09:10] LABS: Blood Urea Nitrogen 43 mg/dl (9-20); Calcium 8.6 mg/dl (8.4-10.2); Carbon Dioxide 21 mmol/L (22-30); Chloride 105 mmol/L (98-107); Estimated Creatinine Clearance 47 ml/min; Glucose 101 mg/dl (70-99); Potassium 3.8 mmol/L (3.5-5.1); Sodium 141 mmol/L (135-145); eGFR 45.62
[2024-02-19 09:36] LABS: TSH 3.77 uIU/ml (0.47-4.68)
--- NOTE | 2024-02-19 11:55 | PN.CDI ---
CDI
- -
CDI:
Physician Documentation Request
Admit Date: 02/17/24 04:30
Dear Doctor Jean,
Please review the following and provide your response in the progress notes.
Clinical Indicators:
- per ER Physician - pmh CKD
- 02/17 Cardiology 'CKD...stable'
- Prior admission 12/12/23 Progress Note CKD 3a
Laboratory Tests
02/17/24 02/18/24 02/19/24
00:58 01:56 08:01
Creatinine 1.6 H 1.7 H 1.5 H
eGFR 42.22 39.26 45.62
Please clarify which of the following accurately represents the patient's renal status:
Stages of Chronic Kidney Disease*
Level Description GFR
G1 Normal or High >90
G2 Mildly decreased 60-89
G3a Mildly to moderately decreased 45-59
G3b Moderately to severely decreased 30-44
G4 Severely decreased 15-29
G5 Kidney failure <15
Use of terms such as suspected, likely, concern for, or probable (associated with a specific diagnosis that is being evaluated, monitored, or treated as if it exists) are acceptable and can be coded in the inpatient setting, when documented at the
time of discharge.
Thank you,
Naman Bernard RN
CDI Specialist
Please use your independent medical judgment in providing your response.
*Source: Kidney Disease: Improving Global Outcomes (KDIGO) 2012
--- NOTE | 2024-02-19 12:03 | W.PN.CD ---
Today's Communication / Plan
-
Stop hydralazine
torsemide 40 daily
Suspect he has significant deconditioning
We will sign off can stop spironolactone if needed, please call with questions
Impression / Plan
-
Falls exact etiology unclear patient states his legs just give out from leg weakness he had no chest pain and denies loss of consciousness
-pt eval
- orthostatic hypotension
- stop hydralazine and make torsemide daily
.
CP overnight
- burning right sided exacerbated by movement
- does not appear cardiac in nature
.
Heart failure preserved ejection fraction chronic
-Respiratory status stable
-Continue current therapy
-Follow weights
-Orthostatic vitals
.
CAD. PCI of the LAD 06/20/2023
-Stable and w/o angina continue Pradaxa and Plavix.
.
A-fib. Permanent
-Rate controlled
-Continue with rate control anticoagulation
.
CKD. Stable
Subjective:
no new complaints
Physical Exam
Vital Signs/Labs
Vital Signs
Temp Pulse Resp BP Pulse Ox
98.1 F 65 18 107/68 98
02/19/24 07:34 02/19/24 07:34 02/19/24 07:34 02/19/24 07:34 02/19/24 07:34
02/18/24 02/19/24 02/20/24
06:59 06:59 06:59
Actual Weight 268 lb 3 oz 263 lb 4 oz
02/18/24 01:56
02/19/24 08:01
Magnesium 2.5 mg/dl (1.6-2.3) H 02/18/24 01:56
TSH 3.77 uIU/ml (0.47-4.68) 02/19/24 08:01
02/17/24
00:59
Aiz-K-Hnzfbtinyvs Pept 3940
LAB Results
02/18/24 02/18/24 02/18/24
01:56 09:06 17:30
Troponin I < 0.012 < 0.012 Cancelled
Physical Exam
Constitutional: No acute distress and Comfortable
Cardiovascular: Rhythm & rate is regular
Respiratory: Respiratory effort normal and Lungs clear to auscul.
GI: Soft
Neuro/Psych: AO x 3
Data Reviewed
-
Date of Service: February 19, 2024
EKG: Tracing Personally Visualized and interpreted (af)
Echo: Report Reviewed by me
Labs: Labs Reviewed by me
--- NOTE | 2024-02-19 13:27 | W.PN.HOSP.TC ---
Addendum entered and electronically signed by Fransisco Pena MD 02/19/24 15:45:
CKD 3 -Cr stable
Addendum entered and electronically signed by Fransisco Pena MD 02/19/24 13:32:
Rt knee pain - pt with gouty attacks to rt knee and uses prn Colchicine which i would continue.
Original Note:
Today's Communication/Plan
-
Hold diuretics. Follow orthostatic blood pressure reads. PT OT eval.
Assessment / Plan
Assessment / Plan
Recurrent falls-suspect probably secondary to orthostatic hypotension. No evidence of syncope. Follow on tele.
Orthostatic hypotension without any extrarenal losses.Normal TSH cortisol. With the weight loss might need to consider changing the dose of his medication. No recent adjustments made. apply AKIKO stockings for now. I suspect this may be medication
related. He is on large doses of diuretics along with GDMT medication. Cards adjusting meds.
CHF - CHF w/ preserved EF. BNP 3900 is at the upper level of his range this last year. No rales on exam, no JVD, and no definitive pulm edema. He has bilateral 1+ pedal edema. Got 40 of lasix in ED. Using salt/fluid restriction with his
current torsemide may be adequate.
- orthostatics as above
- Clinically compensated ;pt with sig wt loss this year . Hold diuretics
- similarly will continue metoprolol, spironolactone, and dapagliflozlin -dosing per cards
- hold hydralazine
- salt and fluid restrictions, daily weights
AFIB - Rate controlled in the 50s
- continue metoprolol and pradaxa
Hypothyroid - On levothyroxine
- continue levothyroxine
COPD - No acute symptoms
- continue inhalers
BPH - No acute changes in urinary symptoms.
- continue finesteride and tamsulosin
DVT PPX - on pradaxa
Code status - DNR
PT eval
Anticipated Discharge: 24 - 48 hours
Subjective/Interval History
-
Date of Service: February 19, 2024
did not sleep well because disturbance.
Still feeling weak in the legs and difficulty ambulating.
Feeling lightheaded with times to stand up.
Objective Data
-
Labs:
Laboratory Results
02/19/24
08:01
Sodium 141
Potassium 3.8
Chloride 105
Carbon Dioxide 21 L
BUN 43 H
Creatinine 1.5 H
Glucose 101 H
Calcium 8.6
Vital Signs:
Vital Signs
Temp Pulse Resp BP Pulse Ox
98.1 F 65 18 107/68 98
02/19/24 07:34 02/19/24 07:34 02/19/24 07:34 02/19/24 07:34 02/19/24 07:34
I&O
02/18/24 02/19/24 02/20/24
06:59 06:59 06:59
Intake Total 450 / 450 600 / 600
Output Total 1375 / 1375 2275 / 2275
Balance -925 / -925 -1675 / -1675
Review of Systems
-
Respiratory: Denies Trouble Breathing
Cardiac: Denies Chest Pain or Palpitations
Abdomen/GI: Denies Abdominal Pain, Nausea or Vomiting
Physical Exam
-
General: No Apparent Distress
HEENT: Moist Mucous Membranes
Respiratory: Clear to Auscultation
Cardiac: S1/S2 and Irregular Rhythm; Negative Tachycardic
GI: Soft
Neuro: AO x 3
Psych: Calm
Data Reviewed
-
Labs: Labs Reviewed by me
[2024-02-19 15:23] VITALS: BP 149/81
[2024-02-19] MEDS: LIPITOR 40 MG PO (17:54)
[2024-02-19 19:35] VITALS: BP 127/90
[2024-02-19] MEDS: FLOMAX 0.4 MG PO (21:03)
[2024-02-19] MEDS: PROSCAR 5 MG PO (21:03)
[2024-02-19] MEDS: PROZAC 40 MG PO (21:03)
[2024-02-19] MEDS: MELATONIN 5 MG PO (21:03)
[2024-02-19 23:10] VITALS: BP 148/68
--- NOTE | 2024-02-20 04:33 | DOWNTIME ---
There was a [employer] Client Medical Receptionist Downtime on 02/20/2024 from 0100 to 02/20/2024 at 0355. Downtime documentation of patient's care, including medication administrations, has been reconciled in the electronic record per guidelines. Refer to the
patient's paper chart under the miscellaneous tab to see printed paper medication records and downtime forms.
[2024-02-20] MEDS: SYNTHROID 112 MCG PO (04:55)
[2024-02-20] MEDS: TYLENOL 650 MG PO ×2 (04:55→12:09)
[2024-02-20 06:00] VITALS: BMI 38.5
[2024-02-20 07:28] VITALS: BP 139/62
[2024-02-20] MEDS: SPIRIVA RESPIMAT 2.5 MCG 2 PUFF INH (07:52)
[2024-02-20] MEDS: STRIVERDI RESPIMAT 2 PUFF INH (07:53)
[2024-02-20] MEDS: FOLVITE 1 MG PO (09:30)
[2024-02-20] MEDS: PLAVIX 75 MG PO (09:33)
[2024-02-20] MEDS: PRADAXA 150 MG PO ×2 (09:34→20:06)
[2024-02-20] MEDS: LOPRESSOR 25 MG PO ×2 (09:37→20:07)
[2024-02-20] MEDS: ULTRAM 50 MG PO (09:46)
[2024-02-20 10:46] LABS: Uric Acid 10.5 mg/dl (3.5-8.5)
--- NOTE | 2024-02-20 11:03 | PHANOTE ---
med rec note- called patient room he asked us to call [facility]. called friend on file no answer waiting an hour, called back and a women picked up and said she couldn't help and to call [facility], patient has ecw records but
not current
--- NOTE | 2024-02-20 12:03 | CM ---
CM reviewed chart, per Hospitalist, patient not clear for discharge at this time. CM met with patient bedside, [facility] remains patients first choice when stable for discharge to SNF. Acceptance will depend on when patient is medically stable/if
bed is available, patient understands. CM will continue to follow for all discharge planning needs.
Plan; SNF when medically stable, first choice [facility].
[2024-02-20 14:28] VITALS: BP 109/70; BP 133/59; BP 79/52; BP 84/64; PULSE 52; PULSE 63; O2SAT 98
--- NOTE | 2024-02-20 14:45 | CON.ORTHO ---
Consultation
-
Performing Provider: Mahamed La MD
Reason for Consultation: gout vs septic arthritis bilateral knees
Consultation - Orthopedics
History
Mr. Álvarez is a an 84-year-old male with AFIB, CHF, gout, orthostatis hypotension complaining of approximately 1 week of bilateral leg weakness and knee pain. He states that he has becoming lightheaded and weak and sustained several
ground-level falls. He states that he just has no strength in his bilateral legs. He was admitted for orthostatic hypotension, however while in the hospital he states that his knees have become very painful and swollen. He states he has been
diagnosed with gout in the past and this does feel similar to prior gout episodes. He states he has pain in the knees when he attempts to perform range of motion or to bear weight on them. He denies numbness or tingling in his lower extremities.
He denies prior injury to the knees or prior surgeries. While in the hospital he has been receiving colchicine, and he states that after several doses of this medication his knees do feel better.
PE:
RLE:
Knee swollen without erythema, skin dry
No open wounds
Mild effusion
Painful PROM 0-90
Knee stable to varus/valgus stress
Negative anterior/posterior drawer
5/5 dorsi/plantarflexion, EHL/FHL
3/5 quadriceps
Palpable pulses, toes warm and well perfused, brisk capillary refill
Sensation intact
LLE:
Knee swollen without erythema, skin dry
No open wounds
Mild effusion
Painful PROM 0-90
Knee stable to varus/valgus stress
Negative anterior/posterior drawer
5/5 dorsi/plantarflexion, EHL/FHL
3/5 quadriceps
Palpable pulses, toes warm and well perfused, brisk capillary refill
Sensation intact
Due to concern for possible septic arthritis, arthrocentesis of bilateral knees was attempted 10mL of straw colored fluid was obtained form the left knee, the right was a dry tap. Fluid was sent for crystal analysis and microbiology, currently
pending results.
Aspirate from knee With 23,000 white blood cells and positive for monosodium urate crystals. This is consistent with gout, low suspicion for septic arthritis.
Allergies / Home Medications
Allergy/AdvReac Type Severity Reaction Status Date / Time
No Known Allergies Allergy Verified 02/17/24 00:25
�Medication �Instructions �Recorded
atorvastatin 40 mg tablet 40 mg PO QPM High cholesterol 01/19/20
dabigatran etexilate 150 mg 150 mg PO BID Blood clot 01/19/20
capsule (Pradaxa) prevention/tx
finasteride 5 mg tablet 5 mg PO HS Urinary issue 04/07/20
metoprolol tartrate 25 mg tablet 25 mg PO BID Blood pressure 04/07/20
tamsulosin 0.4 mg capsule 0.4 mg PO HS Urinary issue 04/07/20
levothyroxine 112 mcg tablet 112 mcg PO DAILY Thyroid 07/21/21
fluoxetine 40 mg capsule (Prozac) 40 mg PO HS Mental Health/Anxiety 11/02/21
folic acid 1 mg tablet 1 mg PO DAILY Supplement 06/19/23
potassium chloride 20 mEq oral 20 meq PO BID@0800,1600 Supplement 06/19/23
packet (Klor-Con)
torsemide 20 mg tablet 40 mg PO BID@0800,1600 Fluid 06/19/23
Retention/Swelling
clopidogrel 75 mg tablet 75 mg PO DAILY #1 tab 06/25/23
hydralazine 25 mg tablet 25 mg PO TID #1 tab 06/25/23
olodaterol 2.5 mcg/actuation mist 2.5 mcg inhalation R DAILY #4 grams 06/25/23
for inhalation (Striverdi Respimat)
mirtazapine 15 mg tablet 15 mg PO HS Mental Health 08/28/23
dapagliflozin propanediol 10 mg 10 mg PO DAILY 30 days #30 tabs 09/04/23
tablet
umeclidinium 62.5 mcg-vilanterol 1 inh inhalation R DAILY 12/10/23
25 mcg/actuation powdr for
inhalation (Anoro Ellipta)
spironolactone 25 mg tablet 25 mg PO DAILY 02/20/24
Vital Signs / Lab Results
Temp Pulse Resp BP Pulse Ox
97.6 F 54 16 139/62 97
02/20/24 07:28 02/20/24 09:37 02/20/24 07:57 02/20/24 09:37 02/20/24 07:57
02/18/24 01:56
02/19/24 08:01
Assessment / Plan
Mr Álvarez is a 84M with gout flares in his bilateral knees. I recommend medical treatment for his condition, which has already been initiated. Patient has improved with this treatment and no orthopedic intervention is warranted at this time.
Please reconsult as necessary.
[2024-02-20 15:03] VITALS: BP 128/67
[2024-02-20 15:05] VITALS: BP 126/48; BP 128/67; PULSE 55; PULSE 59
[2024-02-20 15:14] LABS: Body Fluid WBC 23319 /CUMM
[2024-02-20 15:15] LABS: Body Fluid Polymorphonuclear 90.8 %
[2024-02-20 15:16] LABS: Body Fluid Mononuclear 9.2 %
[2024-02-20 15:21] LABS: Body Fluid Second Tech EYM
--- NOTE | 2024-02-20 15:43 | W.PN.HOSP.TC ---
Today's Communication/Plan
-
Xray knees
Ortho consult for arthrocentesis
Assessment / Plan
Assessment / Plan
Recurrent falls-suspect probably secondary to orthostatic hypotension. No evidence of syncope. Follow on tele.
Orthostatic hypotension without any extrarenal losses.Normal TSH cortisol. With the weight loss might need to consider changing the dose of his medication. No recent adjustments made. apply AKIKO stockings for now. I suspect this may be medication
related. He is on large doses of diuretics along with GDMT medication. Cards adjusting meds.
CHF - CHF w/ preserved EF. BNP 3900 is at the upper level of his range this last year. No rales on exam, no JVD, and no definitive pulm edema. He has bilateral 1+ pedal edema. Got 40 of lasix in ED. Using salt/fluid restriction with his
current torsemide may be adequate.
- orthostatics as above
- Clinically compensated ;pt with sig wt loss this year . Hold diuretics
- similarly will continue metoprolol, spironolactone, and dapagliflozlin -dosing per cards
- hold hydralazine
- salt and fluid restrictions, daily weights
AFIB - Rate controlled in the 50s
- continue metoprolol and pradaxa
BL knee L>R pain - severe - check xray to rule out trauma from fall . Consult ortho for diagnostic tap.
Hypothyroid - On levothyroxine
- continue levothyroxine
COPD - No acute symptoms
- continue inhalers
BPH - No acute changes in urinary symptoms.
- continue finesteride and tamsulosin
DVT PPX - on pradaxa
Code status - DNR
Total time spent on today's encounter was 52 minutes which included time spent in counseling the patient/family regarding diagnosis and treatment plan as listed above, goals of care, and symptom management. Case was discussed with nursing staff,
specialists.All labs and imaging personally reviewed by me. Remainder the time spent in detailed review of previous records, lab data, imaging, and other medical provider documentation.
Anticipated Discharge: 24 - 48 hours
Subjective/Interval History
-
Date of Service: February 20, 2024
Complains of bilateral knee more on the left today than right. Difficulty ambulating because of the pain.
No fever or chills.
He had prior history of gout affecting usually the ankle and the big toes but never the knee joints.
He had 4 falls and one of the falls he did land on his knees.
Objective Data
-
Vital Signs:
Vital Signs
Temp Pulse Resp BP Pulse Ox
97.6 F 55 20 128/67 99
02/20/24 15:03 02/20/24 15:03 02/20/24 15:03 02/20/24 15:03 02/20/24 15:03
I&O
02/19/24 02/20/24 02/21/24
06:59 06:59 06:59
Intake Total 600 / 600 840 / 840
Output Total 2275 / 2275 1350 / 1350
Balance -1675 / -1675 -510 / -510
Review of Systems
-
Respiratory: Denies Trouble Breathing
Cardiac: Denies Chest Pain
Neuro: Denies Dizzy
Physical Exam
-
General: No Apparent Distress
HEENT: Moist Mucous Membranes
Respiratory: Clear to Auscultation
Cardiac: Regular Rhythm and S1/S2
Musculoskeletal: Other (left knee effused and PROM with minimal movment. PROM on right knee too but better ROM compared to left .No obvious redness or increased warmth of knees.)
Neuro: AO x 3
Psych: Calm
Data Reviewed
-
Labs: Labs Reviewed by me
[2024-02-20] MEDS: LIPITOR 40 MG PO (17:35)
[2024-02-20] MEDS: DELTASONE 20 MG PO (18:05)
[2024-02-20] MEDS: PROTONIX 40 MG PO (18:05)
[2024-02-20] MEDS: COLCHICINE 0.6 MG PO (18:06)
[2024-02-20] MEDS: PROZAC 40 MG PO (21:24)
[2024-02-20] MEDS: PROSCAR 5 MG PO (21:24)
[2024-02-20] MEDS: FLOMAX 0.4 MG PO (21:24)
[2024-02-20] MEDS: MELATONIN 5 MG PO (21:24)
[2024-02-20 23:29] VITALS: BP 150/63
[2024-02-21] MEDS: TYLENOL 650 MG PO ×2 (01:57→17:01)
[2024-02-21] MEDS: SYNTHROID 112 MCG PO (05:49)
[2024-02-21 05:55] VITALS: BMI 38.1
[2024-02-21 07:30] LABS: Hematocrit 32.4 % (39.0-52.0); Hemoglobin 10.3 g/dL (13.0-18.0); Mean Corp Hgb Conc. 31.8 g/dL (33.0-37.0); Mean Corpuscular Hgb 29.4 pg (27.0-31.0); Mean Corpuscular Volume 92.6 fL (80.0-94.0); Mean Platelet Volume 9.5 fL (7.4-10.4); Platelet Count 256 10^3/uL (130-400); Red Cell Dist. Width 13.1 % (11.5-14.5)
[2024-02-21 07:45] VITALS: BP 117/64; BP 150/69; BP 90/60; PULSE 60; PULSE 64; PULSE 74
[2024-02-21] MEDS: SPIRIVA RESPIMAT 2.5 MCG 2 PUFF INH (07:50)
[2024-02-21] MEDS: STRIVERDI RESPIMAT 2 PUFF INH (07:50)
[2024-02-21 07:52] LABS: Blood Urea Nitrogen 38 mg/dl (9-20); Calcium 8.6 mg/dl (8.4-10.2); Carbon Dioxide 25 mmol/L (22-30); Chloride 107 mmol/L (98-107); Estimated Creatinine Clearance 60 ml/min; Glucose 116 mg/dl (70-99); Potassium 4.7 mmol/L (3.5-5.1); Sodium 142 mmol/L (135-145); eGFR 59.63
[2024-02-21] MEDS: LOPRESSOR 25 MG PO ×2 (09:39→20:36)
[2024-02-21] MEDS: PROTONIX 40 MG PO (09:39)
[2024-02-21] MEDS: DELTASONE 20 MG PO (09:40)
[2024-02-21] MEDS: PRADAXA 150 MG PO ×2 (09:40→20:36)
[2024-02-21] MEDS: FOLVITE 1 MG PO (09:40)
[2024-02-21] MEDS: COLCHICINE 0.6 MG PO (09:41)
[2024-02-21] MEDS: PLAVIX 75 MG PO (09:41)
--- NOTE | 2024-02-21 11:42 | W.PN.HOSP.TC ---
Today's Communication/Plan
-
See plan above
Likely dc in am if more mobile and less pain in left knee
Assessment / Plan
Assessment / Plan
Recurrent falls-suspect probably secondary to orthostatic hypotension. No evidence of syncope. Follow on tele.
Orthostatic hypotension without any extrarenal losses.Normal TSH cortisol. With the weight loss might need to consider changing the dose of his medication. No recent adjustments made. cw AKIKO stockrola for now. I suspect this may be medication
related. He is on large doses of diuretics along with GDMT medication. Unfortunately cannot use midodrine with supine hypertension
Chronic CHF - CHF w/ preserved EF. BNP 3900 is at the upper level of his range this last year. No rales on exam, no JVD, and no definitive pulm edema. He has bilateral 1+ pedal edema. Got 40 of lasix in ED. Using salt/fluid restriction with
his current torsemide may be adequate.
- orthostatics as above
- Clinically compensated ;pt with sig wt loss this year . Hold diuretics
- similarly will continue metoprolol, spironolactone, and dapagliflozlin -dosing per cards
- hold hydralazine
- salt and fluid restrictions, daily weights
AFIB - Rate controlled in the 50s
- continue metoprolol and pradaxa
BL knee L>R pain secondary to acute gouty arthritis. No evidence of traumatic injury to the knees on x-ray. Left knee tap shows gout crystals. Patient on colchicine as needed but due to chronic kidney disease cannot use higher dose than once
daily. Added low-dose steroids. Clinically improving.
Hypothyroid - On levothyroxine
- continue levothyroxine
COPD - No acute symptoms
- continue inhalers
BPH - No acute changes in urinary symptoms.
- continue finesteride and tamsulosin
DVT PPX - on pradaxa
Code status - DNR
I doubt he would be able to participate in physical therapy at [facility] at this current functional status.
Likely DC in a.m. if more mobile.
Anticipated Discharge: Within 24 hours
Subjective/Interval History
-
Date of Service: February 21, 2024
Improved left knee pain with steroids and and after arthrocentesis .
Still having difficulty ambulating due to knee issues. Has not been able to participate with PT yet.
No fever chills.
Objective Data
-
Labs:
Laboratory Results
02/21/24
06:44
WBC 11.0 H
Hgb 10.3 L
Hct 32.4 L
Plt Count 256
Sodium 142
Potassium 4.7
Chloride 107
Carbon Dioxide 25
BUN 38 H
Creatinine 1.2
Glucose 116 H
Calcium 8.6
Vital Signs:
Vital Signs
Temp Pulse Resp BP Pulse Ox
97.6 F 60 16 150/69 95
02/21/24 07:45 02/21/24 09:39 02/21/24 07:57 02/21/24 09:39 02/21/24 08:37
I&O
02/20/24 02/21/24 02/22/24
06:59 06:59 06:59
Intake Total 840 / 840 840 / 840
Output Total 1350 / 1350 1300 / 1300
Balance -510 / -510 -460 / -460
Review of Systems
-
Respiratory: Denies Trouble Breathing
Cardiac: Denies Chest Pain
Abdomen/GI: Denies Abdominal Pain, Nausea or Vomiting
Neuro: Reports Dizzy (standing)
Physical Exam
-
General: Comfortable
Respiratory: Non Labored Respirations; Negative Accessory Resp Muscle Use
Cardiac: Regular Rhythm and S1/S2
GI: Soft
Musculoskeletal: Other (improved ROM in left knee )
Neuro: AO x 3 and No Motor Deficits
Psych: Negative Calm
Data Reviewed
-
Labs: Labs Reviewed by me
--- NOTE | 2024-02-21 14:16 | CM ---
CM reviewed chart, patient not stable for discharge, update to [facility]. CM will check with [facility] admissions tomorrow regarding bed availability. CM will continue to follow for all discharge planning needs.
Plan; SNF when medically stable.
[2024-02-21 15:45] VITALS: BP 154/75
[2024-02-21] MEDS: LIPITOR 40 MG PO (17:01)
[2024-02-21] MEDS: PROZAC 40 MG PO (22:06)
[2024-02-21] MEDS: MELATONIN 5 MG PO (22:06)
[2024-02-21] MEDS: FLOMAX 0.4 MG PO (22:06)
[2024-02-21] MEDS: PROSCAR 5 MG PO (22:06)
[2024-02-21 23:10] VITALS: BP 120/59
[2024-02-22] MEDS: SYNTHROID 112 MCG PO (05:40)
[2024-02-22 06:00] VITALS: BMI 37.9
[2024-02-22 07:30] VITALS: BP 154/68
[2024-02-22] MEDS: SPIRIVA RESPIMAT 2.5 MCG 2 PUFF INH (08:05)
[2024-02-22] MEDS: STRIVERDI RESPIMAT 2 PUFF INH (08:05)
[2024-02-22] MEDS: PROTONIX 40 MG PO (08:47)
[2024-02-22] MEDS: COLCHICINE 0.6 MG PO (08:47)
[2024-02-22] MEDS: PRADAXA 150 MG PO (08:48)
[2024-02-22] MEDS: LOPRESSOR 25 MG PO (08:48)
[2024-02-22] MEDS: PLAVIX 75 MG PO (08:49)
[2024-02-22] MEDS: DELTASONE 20 MG PO (08:49)
[2024-02-22] MEDS: FOLVITE 1 MG PO (08:49)
[2024-02-22 10:42] LABS: COVID-19 Antigen Negative (Negative)
--- NOTE | 2024-02-22 11:03 | CM ---
Addendum entered by Lora Martin 02/22/24 13:09:
Transport time switched to 4:00 p.m.
Addendum entered by Lora Martin 02/22/24 11:18:
[facility]
Report: [phone]

Original Note:
CM reviewed chart, patient clear for discharge today. [facility] can offer patient bed, patient scheduled for 2:00 p.m. ambulance transport. Covid test negative. IMM reviewed with patient, signed, placed in chart. CM will continue to follow for all
discharge planning needs.
Plan; [facility] SNF, 2:00 p.m. ambulance transport
--- NOTE | 2024-02-22 12:02 | W.PN.HOSP.TC ---
Addendum entered and electronically signed by Fransisco Pena MD 02/22/24 12:17:
With BP creeping up and no ortho symptoms will reintroduce his hydralazine for BP on DC.
Original Note:
Today's Communication/Plan
-
dc
Assessment / Plan
Assessment / Plan
Recurrent falls-suspect probably secondary to orthostatic hypotension. No evidence of syncope. Follow on tele-rate controlled AFIB
Orthostatic hypotension without any extrarenal losses.Normal TSH cortisol. With the weight loss might need to consider changing the dose of his medication. No recent adjustments made. cw AKIKO stockings for now. I suspect this may be medication
related. He is on large doses of diuretics along with GDMT medication. Unfortunately cannot use midodrine with supine hypertension. Thought drop in blood pressure on standing noted he is not symptomatic currently.
Chronic CHF - CHF w/ preserved EF. BNP 3900 is at the upper level of his range this last year. No rales on exam, no JVD, and no definitive pulm edema. He has bilateral 1+ pedal edema.
- orthostatics as above
- Clinically compensated ;pt with sig wt loss this year. His wt has been down on this adx too . ECHO recently with normal EF. I would use diuretics prn going forward. Advised to follow with cardiology in office
- DCed spironolatone and farxiga for now till reviewed by cards in office.
- continue metoprolol
- hold hydralazine
- salt and fluid restrictions, daily weights
AFIB - Rate controlled in the 50s
- continue metoprolol and pradaxa
BL knee L>R pain secondary to acute gouty arthritis. No evidence of traumatic injury to the knees on x-ray. Left knee tap shows gout crystals. Patient on colchicine as needed but due to chronic kidney disease cannot use higher dose than once
daily. Added low-dose steroids. Clinically improving. Will do 5 day course of steroids and stop
Hypothyroid - On levothyroxine
- continue levothyroxine
COPD - No acute symptoms
- continue inhalers
BPH - No acute changes in urinary symptoms.
- continue finesteride and tamsulosin
DVT PPX - on pradaxa
Code status - DNR
More participation with transfers noted.
Medically stable for discharge to rehab today.
Total time of discharge 35 minutes
Patient is aware that after discharge from rehab he is going to follow with his cardiology Dr. Shin to reevaluate the need of GDMT.
Anticipated Discharge: Today
Subjective/Interval History
-
Date of Service: February 22, 2024
Feeling improved. Able to move better with less knee pain.
Not feeling dizzy with standing now.
No fever or chills.
Denies shortness of breath or chest pain.
Good appetite.
Objective Data
-
Vital Signs:
Vital Signs
Temp Pulse Resp BP Pulse Ox
97.6 F 59 16 154/68 97
02/22/24 07:30 02/22/24 08:16 02/22/24 08:16 02/22/24 07:30 02/22/24 08:16
I&O
02/21/24 02/22/24 02/23/24
06:59 06:59 06:59
Intake Total 840 / 840 1200 / 1200
Output Total 1300 / 1300 1205 / 1205
Balance -460 / -460 -5 / -5
Review of Systems
-
Constitutional: Denies Fever
Respiratory: Denies Cough
Abdomen/GI: Denies Abdominal Pain, Nausea or Vomiting
Physical Exam
-
General: No Apparent Distress
HEENT: Moist Mucous Membranes
Respiratory: Clear to Auscultation and Non Labored Respirations; Negative Accessory Resp Muscle Use
Cardiac: S1/S2 and Irregular Rhythm; Negative Tachycardic
GI: Soft
Musculoskeletal: Other (Much improved ROM in left and right knee)
Neuro: AO x 3
[2024-02-22] MEDS: FLUAD (65 yr+) 2024-2025 FORMULA 0.5 ML IM (13:28)
[2024-02-22 15:00] VITALS: BP 148/86
[2024-02-22 16:29] LABS: Lyme Antibody Screen, EIA Negative (Negative)
== END 2024-02-22 17:18 | DRG 312 ==
LOC: 4 WEST ACU 04:30
PROVIDERS: Hospitalist; Physician Assistant; Registered Nurse; ADMITTING PHYSICIAN Internal Medicine; ATTENDING PHYSICIAN Internal Medicine; CONSULT PHYSICIAN Student in an Organized Health Care Education/Training Program; EMERGENCY PHYSICIAN Emergency Medicine; FAMILY PHYSICIAN Internal Medicine; OTHER PHYSICIAN Internal Medicine Cardiovascular Disease
PROC: 3E02340 Introduction of Influenza Vaccine into Muscle, Percutaneous Approach (ICD-10-PCS; 2024-02-22)
DX: I95.1 Orthostatic hypotension (principal); I50.32 Chronic diastolic (congestive) heart failure; I13.0 Hypertensive heart and chronic kidney disease with heart failure and stage 1 through stage 4 chronic kidney disease, or unspecified chronic kidney disease; I48.21 Permanent atrial fibrillation; M10.9 Gout, unspecified; R53.1 Weakness; R29.6 Repeated falls; M79.89 Other specified soft tissue disorders; E78.00 Pure hypercholesterolemia, unspecified; N40.0 Benign prostatic hyperplasia without lower urinary tract symptoms; E66.01 Morbid (severe) obesity due to excess calories; E03.9 Hypothyroidism, unspecified; N18.9 Chronic kidney disease, unspecified; I25.10 Atherosclerotic heart disease of native coronary artery without angina pectoris; J44.9 Chronic obstructive pulmonary disease, unspecified; M25.561 Pain in right knee; M25.562 Pain in left knee; N18.30 Chronic kidney disease, stage 3 unspecified; Z66 Do not resuscitate; Z60.2 Problems related to living alone; Z87.891 Personal history of nicotine dependence; Z98.1 Arthrodesis status; Z79.890 Hormone replacement therapy; Z79.02 Long term (current) use of antithrombotics/antiplatelets; Z79.51 Long term (current) use of inhaled steroids; Z86.73 Personal history of transient ischemic attack (TIA), and cerebral infarction without residual deficits; Z79.01 Long term (current) use of anticoagulants; Z98.61 Coronary angioplasty status; Z68.37 Body mass index [BMI] 37.0-37.9, adult; Z23 Encounter for immunization; Z11.52 Encounter for screening for COVID-19
CPT/HCPCS: 71046; 73560; 80048; 80053; 81003; 82533; 82550; 82607; 83735; 83880; 84100; 84443; 84484; 84550; 85025; 85027; 86140; 86618; 87015; 87070; 87205; 87502; 87811; 89051; 89060; 90662; 93005; 94640; 96374; 97162; 97530; 99285; G0008

== ENCOUNTER 2024-04-02 08:01 | Emergency (ER) | payer MEDICARE, SELFPAY ==
[2024-04-02 08:02] VITALS: BP 124/35
[2024-04-02 08:08] VITALS: BP 124/35
[2024-04-02 08:23] VITALS: BMI 40.6
[2024-04-02 09:50] VITALS: BP 132/69
--- NOTE | 2024-04-02 09:56 | ED.SKININJ ---
HPI-Injury
<Igor Nelson PA-C - Last Filed: 04/02/24 11:48>
General
Chief Complaint: Skin Surface Trauma
Source: patient
Exam Limitations: none
Time Seen by Provider: 04/02/24 08:22
History of Present Illness-Injury
Initial Injury comments:
84 year old male via EMS from home. Slipped off step stool and hit right glasgow on step stool. On pradaxa. last dose, las evening. No head strike or headache. No chest pain or SOB. He had significant mount of bleeding from the wound at home. He
lives by himself. Typically uses a cane or a walker. EMS noted a large laceration to the right leg and brought him here
Past History
<PATRICIA Jamil Last Filed: 04/02/24 11:48>
Past History
ED Past Medical History: Arrthythmia (Paroxysmal atrial fibrillation), CAD, CHF, COPD, CVA, HTN, Hypercholesterolemia and Other (CKD)
ED Past Surgical History: Cardiac and Orthopedic (Resection of a thoracic spine lesion and spinal fusion)
Social History
Tobacco: Former smoker
Alcohol: None
Drug: None
Personal:
Living: alone
Employment: Retired
Family History
Family History: Other (Noncontributory)
Phy Exam
<PATRICIA Jamil Last Filed: 04/02/24 11:48>
Physical Exam
Physical Exam:
General: Well-appearing male no acute respiratory distress
HEENT: Normocephalic atraumatic
Heart: Regular rate and rhythm no murmurs
Lungs: Clear no wheeze
Skin: 12 cm curvilinear laceration anterior lateral aspect midportion right glasgow with underlying ecchymosis
Extremities: Lymphedema noted bilateral lower extremities
Course
<PATRICIA Jamil Last Filed: 04/02/24 11:48>
Orders/Labs/Results
Orders:
Orders
04/02/24 08:21
1:1 Observation - Suicide/ Violent Behavior As Directed
Comment: depression thoughts of SI
04/02/24 08:27
Tetanus/Diphth/Acelpertussis [Adacel] 0.5 ml IM .ONCE ONE
04/02/24 09:35
Crisis Consult Urgent
Reason for Consult: depressed with thoughts of SI no plan
04/02/24 09:54
Complete Blood Count/With Diff Urgent
Comprehensive Metabolic Panel Urgent
NT-proBNP Urgent
04/02/24 09:56
CR Chest - 2 Views Urgent
Comment:
Reason For Exam: sob
CR Leg Tibia/fibula Right 2 Vw Urgent
Comment:
Reason For Exam: laceration
Abnormal Lab Results
04/02/24
09:54
RBC 3.61 L 10^6/uL
(4.70-6.10)
Hgb 10.7 L g/dL
(13.0-18.0)
Hct 34.7 L %
(39.0-52.0)
MCV 96.1 H fL
(80.0-94.0)
MCHC 30.8 L g/dL
(33.0-37.0)
Abs Immat Gran (auto) 0.1 H 10^3/uL
(0-0.05)
Absolute Neuts (auto) 8.4 H 10^3/uL
(1.4-6.5)
Absolute Lymphs (auto) 1.0 L 10^3/uL
(1.2-3.4)
Absolute Monos (auto) 0.8 H 10^3/uL
(0.1-0.6)
Neutrophils % 80.7 H %
(42.2-75.2)
Lymphocytes % 9.9 L %
(20.5-51.1)
BUN 32 H mg/dl
(9-20)
Creatinine 1.5 H mg/dL
(0.7-1.3)
Calcium 8.0 L mg/dl
(8.4-10.2)
04/02/24 09:54
04/02/24 09:54
Vital Signs
Initial and Last Documented VS:
Initial Vital Signs
BP
124/35
04/02/24 08:02
Last Documented Vital Signs
Temp Pulse Resp BP Pulse Ox
98.4 F 73 18 124/35 95
04/02/24 08:08 04/02/24 08:08 04/02/24 08:08 04/02/24 08:08 04/02/24 08:15
<Suresh Mackey, DO - Last Filed: 04/02/24 11:23>
Orders/Labs/Results
Orders:
Orders
04/02/24 08:21
1:1 Observation - Suicide/ Violent Behavior As Directed
Comment: depression thoughts of SI
04/02/24 08:27
Tetanus/Diphth/Acelpertussis [Adacel] 0.5 ml IM .ONCE ONE
04/02/24 09:35
Crisis Consult Urgent
Reason for Consult: depressed with thoughts of SI no plan
04/02/24 09:54
Complete Blood Count/With Diff Urgent
Comprehensive Metabolic Panel Urgent
NT-proBNP Urgent
04/02/24 09:56
CR Chest - 2 Views Urgent
Comment:
Reason For Exam: sob
CR Leg Tibia/fibula Right 2 Vw Urgent
Comment:
Reason For Exam: laceration
Abnormal Lab Results
04/02/24
09:54
RBC 3.61 L 10^6/uL
(4.70-6.10)
Hgb 10.7 L g/dL
(13.0-18.0)
Hct 34.7 L %
(39.0-52.0)
MCV 96.1 H fL
(80.0-94.0)
MCHC 30.8 L g/dL
(33.0-37.0)
Abs Immat Gran (auto) 0.1 H 10^3/uL
(0-0.05)
Absolute Neuts (auto) 8.4 H 10^3/uL
(1.4-6.5)
Absolute Lymphs (auto) 1.0 L 10^3/uL
(1.2-3.4)
Absolute Monos (auto) 0.8 H 10^3/uL
(0.1-0.6)
Neutrophils % 80.7 H %
(42.2-75.2)
Lymphocytes % 9.9 L %
(20.5-51.1)
BUN 32 H mg/dl
(9-20)
Creatinine 1.5 H mg/dL
(0.7-1.3)
Calcium 8.0 L mg/dl
(8.4-10.2)
04/02/24 09:54
04/02/24 09:54
Vital Signs
Initial and Last Documented VS:
Initial Vital Signs
BP
124/35
04/02/24 08:02
Last Documented Vital Signs
Temp Pulse Resp BP Pulse Ox
98.4 F 73 18 124/35 95
04/02/24 08:08 04/02/24 08:08 04/02/24 08:08 04/02/24 08:08 04/02/24 08:15
<Igor Nelson PA-C - Last Filed: 11/27/24 11:48>
MDM/Problems Addressed
Differential Diagnosis Includes:
Laceration anterior lateral right glasgow on Pradaxa. There was a significant mount of bleeding noted on scene. Blood work pending.
The wound was copiously irrigated with saline and anesthetized in a local fashion using 1% lidocaine with epinephrine. 4-0 Prolene was used in a simple erupted fashion to provide wound edge approximation and hemostasis. 30 1 sutures were required
to do so. The wound was then observed without any dressing. There is a clear drainage from the wound but no blood drainage. This was then wrapped with Adaptic ABD pad Curlex and Robert bandages. Will start him on antibiotics secondary to the size
of the wound. Labs pending chest x-ray and right leg x-ray pending
<Igor Nelson PA-C - Last Filed: 04/02/24 11:48>
*Critical Care Note
Total Time (30-74mins, 75-104mins- exclusive of procedures): Not Applicable
<Igor Nelson PA-C - Last Filed: 04/02/24 11:48>
Update Note
Update Note:
X-ray of the right leg negative for acute bony abnormality. Chest x-ray and labs otherwise at baseline. No indication for admission. Will start patient on antibiotics secondary to the depth and size of the wound. Recommend follow-up with wound
care center for further evaluation. Sutures to be removed in 2 weeks
ED Attending Note
<Igor Nelson PA-C - Last Filed: 04/02/24 11:48>
-
Portions of this chart may have been created with voice recognition software.� Occasional wrong word or��sound alike� substitutions may have occurred due to the inherent limitations of voice recognition software.
<Suresh Mackey DO - Last Filed: 04/02/24 11:23>
ED Attending Note
Patient seen and examined by attending physician: Yes
I performed the substantive portion of visit, reviewed & personally made and approve the management plan that is documented in note by myself or BALTAZAR.: Yes
ED Attending Note:
Seen with PA examined independently received a call from EMS patient on Pradaxa with a complex leg wound on a piece of metal wound closed by PA, see his note for details also seen by crisis outpatient follow-up [facility]
Discharge Plan
Departure
Patient Disposition: Home (Routine Discharge)
Date of Disposition: 04/02/24
Time of Disposition: 11:45
Patient with high blood pressure during this ER visit?: No
Discharge Problem:
Laceration
Instructions: Laceration Repair With Stitches (DC)
Prescriptions:
New
cephalexin 500 mg capsule
500 mg PO Q6H 7 Days Qty: 28 0RF
No Action
atorvastatin 40 MG tablet
40 mg PO QPM
dabigatran etexilate [Pradaxa] 150 MG capsule
150 mg PO BID
tamsulosin 0.4 MG capsule
0.4 mg PO HS
finasteride 5 MG tablet
5 mg PO HS
metoprolol tartrate 25 MG tablet
25 mg PO BID
levothyroxine 112 MCG tablet
112 mcg PO DAILY
fluoxetine [Prozac] 40 MG capsule
40 mg PO HS
folic acid 1 mg Tablet
1 mg PO DAILY
hydralazine 25 mg Tablet
25 mg PO TID Qty: 1 0RF
clopidogrel 75 mg Tablet
75 mg PO DAILY Qty: 1 0RF
Striverdi Respimat 2.5 mcg/actuation Mist
2.5 mcg inhalation R DAILY Qty: 4 0RF
mirtazapine 15 mg Tablet
15 mg PO HS
Rx Instructions:
stop 45mg
Anoro Ellipta 62.5-25 mcg/actuation Blister With Device
1 inh INHALATION R DAILY
prednisone 20 mg Tablet
20 mg PO DAILY Qty: 1 0RF
Rx Instructions:
for 2 more days and stop
melatonin 5 mg Tablet
5 mg PO HS Qty: 1 0RF
acetaminophen 325 mg Tablet
650 mg PO Q6HPRN PRN (Reason: mild pain/ fever>100.5F) Qty: 1 0RF
torsemide 10 mg tablet
10 mg PO DAILY PRN (Reason: weight gain) Qty: 1 0RF
Rx Instructions:
wt gain of> 3lb/day or >5lb/week
colchicine 0.6 mg Tablet
0.6 mg PO DAILY Qty: 1 0RF
Rx Instructions:
daily for 2 days and then prn
pantoprazole 40 mg Tablet,Delayed Release (Dr/Ec)
40 mg PO DAILY Qty: 7 0RF
Rx Instructions:
for a week and stop
Referrals:
Rajiv Pavon MD [Family Provider] -
[facility] -
Activity Restrictions/Additional Instructions:
Take antibiotics as directed. Elevate leg for swelling. Have sutures removed in 2 weeks. Please follow-up with wound care center for wound check. Return if needed otherwise.
Interventions
Interventions:
*Risk Screen - Suicide Last Done: 04/02/24 08:08
*General Assessment Last Done: 04/02/24 08:08
*Neglect/Abuse Screening Last Done: 04/02/24 08:08
ED- Fall Risk Assessment Last Done: 04/02/24 08:23
*ED COVID-19 Vaccine History Last Done: 04/02/24 08:08
ED-Skin Assessment Last Done: 04/02/24 08:23
Discharge Date and Time
Print Language: DIVEHI
[2024-04-02 10:00] VITALS: BP 122/73
[2024-04-02 10:12] LABS: % Basophils 0.3 % (0-2); % Eosinophils 1.4 % (0-6); % Immature Granulocytes 0.5 % (0-0.5); % Lymphocytes 9.9 % (20.5-51.1); % Monocytes 7.2 % (1.7-9.3); % Neutrophils 80.7 % (42.2-75.2); Absolute Eosinophils 0.2 10^3/uL (0-0.7); Absolute Immature Granulocytes 0.1 10^3/uL (0-0.05); Absolute Monocytes 0.8 10^3/uL (0.1-0.6); Absolute Neutrophils 8.4 10^3/uL (1.4-6.5); Hematocrit 34.7 % (39.0-52.0); Hemoglobin 10.7 g/dL (13.0-18.0); Mean Corp Hgb Conc. 30.8 g/dL (33.0-37.0); Mean Corpuscular Hgb 29.6 pg (27.0-31.0); Mean Corpuscular Volume 96.1 fL (80.0-94.0); Mean Platelet Volume 9.5 fL (7.4-10.4); Nucleated Red Blood Cells % 0 % (-); Platelet Count 282 10^3/uL (130-400); Red Blood Cell Count 3.61 10^6/uL (4.70-6.10); Red Cell Dist. Width 14.1 % (11.5-14.5); White Blood Cell Count 10.4 10^3/uL (4.8-10.8)
[2024-04-02 10:36] LABS: NT-proBNP 5140 pg/ml
[2024-04-02 10:57] LABS: ALT (SGPT) 14 U/L (0-50); AST (SGOT) 21 U/L (17-59); Albumin 4.1 g/dl (3.5-5.0); Alkaline Phosphatase 79 U/L (38-126); Blood Urea Nitrogen 32 mg/dl (9-20); Carbon Dioxide 28 mmol/L (22-30); Chloride 107 mmol/L (98-107); Estimated Creatinine Clearance 49 ml/min; Glucose 99 mg/dl (70-99); Potassium 3.8 mmol/L (3.5-5.1); Sodium 145 mmol/L (135-145); Total Bilirubin 0.5 mg/dl (0.2-1.3); Total Protein 6.9 g/dl (6.3-8.2); eGFR 45.62
[2024-04-02 12:42] VITALS: BP 152/71
[2024-04-02] MEDS: ADACEL 0.5 ML IM (12:50)
[2024-04-02] MEDS: KEFLEX 500 MG PO (12:50)
--- NOTE | 2024-04-02 13:24 | CM ---
Lenore from [facility] asked for d/c instructions. They were sent via [facility].
--- NOTE | 2024-04-02 13:25 | EDRN ---
Reviewed discharge instructions with patient. Verbalized understanding. Taken to lobby in wheelchair to wait for his ride home. Compression dressing clean,dry and intact. Wound care instructions reviewed with patient. Verbalized understanding.
[2024-04-02 13:27] VITALS: BP 152/72
== END 2024-04-02 13:15 | disposition home or self-care (01) ==
LOC: EMR 08:01
PROVIDERS: Physician Assistant; EMERGENCY PHYSICIAN Emergency Medicine; FAMILY PHYSICIAN Internal Medicine
DX: S81.811A Laceration without foreign body, right lower leg, initial encounter (principal); W11.XXXA Fall on and from ladder, initial encounter; I48.0 Paroxysmal atrial fibrillation; Z79.01 Long term (current) use of anticoagulants; I25.10 Atherosclerotic heart disease of native coronary artery without angina pectoris; I13.0 Hypertensive heart and chronic kidney disease with heart failure and stage 1 through stage 4 chronic kidney disease, or unspecified chronic kidney disease; I50.9 Heart failure, unspecified; N18.9 Chronic kidney disease, unspecified; J44.9 Chronic obstructive pulmonary disease, unspecified; Z86.73 Personal history of transient ischemic attack (TIA), and cerebral infarction without residual deficits; E78.00 Pure hypercholesterolemia, unspecified; Z87.891 Personal history of nicotine dependence; Z23 Encounter for immunization
CPT/HCPCS: 12004; 90471; 99284; 71046; 73590; 80053; 83880; 85025; 90715

== ENCOUNTER 2024-04-05 11:54 | Emergency (ER) | payer MEDICARE, SELFPAY ==
[2024-04-05 11:58] VITALS: BP 120/63; BMI 40.6
[2024-04-05 12:00] VITALS: BP 120/63
[2024-04-05 12:14] LABS: % Basophils 0.2 % (0-2); % Eosinophils 2.2 % (0-6); % Immature Granulocytes 0.5 % (0-0.5); % Lymphocytes 10.4 % (20.5-51.1); % Monocytes 8.5 % (1.7-9.3); % Neutrophils 78.2 % (42.2-75.2); Absolute Eosinophils 0.2 10^3/uL (0-0.7); Absolute Immature Granulocytes 0.1 10^3/uL (0-0.05); Absolute Monocytes 0.8 10^3/uL (0.1-0.6); Absolute Neutrophils 7.7 10^3/uL (1.4-6.5); Hematocrit 29.1 % (39.0-52.0); Mean Corp Hgb Conc. 30.9 g/dL (33.0-37.0); Mean Corpuscular Hgb 29.2 pg (27.0-31.0); Mean Corpuscular Volume 94.5 fL (80.0-94.0); Mean Platelet Volume 9.1 fL (7.4-10.4); Nucleated Red Blood Cells % 0 % (-); Platelet Count 305 10^3/uL (130-400); Red Blood Cell Count 3.08 10^6/uL (4.70-6.10); White Blood Cell Count 9.8 10^3/uL (4.8-10.8)
--- NOTE | 2024-04-05 12:42 | ED.GENMED ---
History of Present Illness
General
Chief Complaint: Wound Check/Suture Removal
Source: patient
Exam Limitations: none
Time Seen by Provider: 04/05/24 12:23
Nursing documentation reviewed up to this point in time: agreed with
History of Present Illness
History of Present Illness:
84-year-old male presenting to the emergency department today with concerns of some intermittent bleeding to the right glasgow after getting sutures a few days ago. Denies any fever or systemic symptoms or additional concerns otherwise.
Past History
Past History
ED Past Medical History: Arrthythmia (Paroxysmal atrial fibrillation), CAD, CHF, COPD, CVA, HTN, Hypercholesterolemia and Other (CKD)
ED Past Surgical History: Cardiac and Orthopedic (Resection of a thoracic spine lesion and spinal fusion)
Social History
Tobacco: Former smoker
Alcohol: None
Drug: None
Personal:
Living: alone
Employment: Retired
Family History
Family History: Other (Noncontributory)
Review of Systems
Review of Systems
Allergies reviewed?: Yes
All Other Systems: ROS reviewed and negative except as documented in HPI and ROS
Phy Exam
Physical Exam
Physical Exam:
GENERAL: Alert , in no apparent distress
EYE: pupils equal and reactive
NECK: Supple, no significant adenopathy.
ENT: o/p clr, mmm.
CARDIAC: Regular rate and rhythm .
LUNGS: Clear breath sounds bilaterally, no acute respiratory distress, no wheezes/rales/rhonchi
ABDOMEN: Soft, without focal tenderness, no r/g, no cvat
NEUROLOGICAL: Alert and oriented, no focal neuro deficits
SKIN: Right sided glasgow with healing sutured laceration semicircular in shape centralized hematoma. Tenderness palpation to the area but no redness or warmth no active drainage no rapidly expanding hematoma. Warm and dry, skin intact.
MUSCULOSKELETAL: No edema, well perfused.
PSYCH: Normal and appropriate interaction.
Course
Orders/Labs/Results
Orders:
Orders
04/05/24 12:08
Complete Blood Count/With Diff Urgent
Comprehensive Metabolic Panel Urgent
Abnormal Lab Results
04/05/24
12:08
RBC 3.08 L 10^6/uL
(4.70-6.10)
Hgb 9.0 L g/dL
(13.0-18.0)
Hct 29.1 L %
(39.0-52.0)
MCV 94.5 H fL
(80.0-94.0)
MCHC 30.9 L g/dL
(33.0-37.0)
Abs Immat Gran (auto) 0.1 H 10^3/uL
(0-0.05)
Absolute Neuts (auto) 7.7 H 10^3/uL
(1.4-6.5)
Absolute Lymphs (auto) 1.0 L 10^3/uL
(1.2-3.4)
Absolute Monos (auto) 0.8 H 10^3/uL
(0.1-0.6)
Neutrophils % 78.2 H %
(42.2-75.2)
Lymphocytes % 10.4 L %
(20.5-51.1)
04/05/24 12:08
Vital Signs
Initial and Last Documented VS:
Initial Vital Signs
Temp Pulse Resp BP Pulse Ox
98.1 F 64 20 120/63 96
04/05/24 11:58 04/05/24 11:58 04/05/24 11:58 04/05/24 11:58 04/05/24 11:58
Last Documented Vital Signs
Temp Pulse Resp BP Pulse Ox
98.1 F 53 23 120/63 100
04/05/24 11:58 04/05/24 12:01 04/05/24 12:01 04/05/24 12:00 04/05/24 12:01
MDM/Problems Addressed
MDM/Problems Addressed:
84-year-old male presenting to the emergency department today with concerns of bleeding from a recent laceration that occurred 2 days ago. Here is not red or warm no evidence of infection he is taking Keflex. Does have a hematoma but no active
drainage. Pressure bandage was placed otherwise stable for discharge no evidence of rapidly expanding hematoma or ongoing bleed.
*Critical Care Note
Total Time (30-74mins, 75-104mins- exclusive of procedures): Not Applicable
ED Attending Note
-
Portions of this chart may have been created with voice recognition software.� Occasional wrong word or��sound alike� substitutions may have occurred due to the inherent limitations of voice recognition software.
Discharge Plan
Departure
Patient Disposition: Home (Routine Discharge)
Date of Disposition: 04/05/24
Time of Disposition: 12:46
Patient with high blood pressure during this ER visit?: No
Condition: Good
Covid-19: Not Applicable
Discharge Problem:
Bleeding from wound
Instructions: Stitches and abiodun
Prescriptions:
No Action
atorvastatin 40 MG tablet
40 mg PO QPM
dabigatran etexilate [Pradaxa] 150 MG capsule
150 mg PO BID
tamsulosin 0.4 MG capsule
0.4 mg PO HS
finasteride 5 MG tablet
5 mg PO HS
metoprolol tartrate 25 MG tablet
25 mg PO BID
levothyroxine 112 MCG tablet
112 mcg PO DAILY
fluoxetine [Prozac] 40 MG capsule
40 mg PO HS
folic acid 1 mg Tablet
1 mg PO DAILY
hydralazine 25 mg Tablet
25 mg PO TID Qty: 1 0RF
clopidogrel 75 mg Tablet
75 mg PO DAILY Qty: 1 0RF
Striverdi Respimat 2.5 mcg/actuation Mist
2.5 mcg inhalation R DAILY Qty: 4 0RF
mirtazapine 15 mg Tablet
15 mg PO HS
Rx Instructions:
stop 45mg
Anoro Ellipta 62.5-25 mcg/actuation Blister With Device
1 inh INHALATION R DAILY
prednisone 20 mg Tablet
20 mg PO DAILY Qty: 1 0RF
Rx Instructions:
for 2 more days and stop
melatonin 5 mg Tablet
5 mg PO HS Qty: 1 0RF
acetaminophen 325 mg Tablet
650 mg PO Q6HPRN PRN (Reason: mild pain/ fever>100.5F) Qty: 1 0RF
torsemide 10 mg tablet
10 mg PO DAILY PRN (Reason: weight gain) Qty: 1 0RF
Rx Instructions:
wt gain of> 3lb/day or >5lb/week
colchicine 0.6 mg Tablet
0.6 mg PO DAILY Qty: 1 0RF
Rx Instructions:
daily for 2 days and then prn
pantoprazole 40 mg Tablet,Delayed Release (Dr/Ec)
40 mg PO DAILY Qty: 7 0RF
Rx Instructions:
for a week and stop
cephalexin 500 mg capsule
500 mg PO Q6H 7 Days Qty: 28 0RF
Referrals:
Rajiv Pavon MD [Family Provider] -
Activity Restrictions/Additional Instructions:
You came to the emergency department with concerns of intermittent bleeding from your recently sutured laceration. Please keep a pressure bandage on the area and keep your leg elevated. Return for any worsening, new or concerning symptoms.
Interventions
Interventions:
*Risk Screen - Suicide Last Done: 04/05/24 11:58
*General Assessment Last Done: 04/05/24 11:58
*Neglect/Abuse Screening Last Done: 04/05/24 11:58
ED- Fall Risk Assessment Last Done: 04/05/24 12:12
*ED COVID-19 Vaccine History Last Done: 04/05/24 11:58
ED-Skin Assessment Last Done: 04/05/24 12:12
Discharge Date and Time
Print Language: JAPANESE
[2024-04-05 12:51] LABS: Albumin 3.9 g/dl (3.5-5.0); Carbon Dioxide 26 mmol/L (22-30); Estimated Creatinine Clearance 44 ml/min; Total Protein 6.6 g/dl (6.3-8.2); eGFR 39.26
[2024-04-05 12:57] LABS: ALT (SGPT) 13 U/L (0-50); AST (SGOT) 22 U/L (17-59); Alkaline Phosphatase 63 U/L (38-126); Blood Urea Nitrogen 34 mg/dl (9-20); Calcium 7.3 mg/dl (8.4-10.2); Chloride 116 mmol/L (98-107); Glucose 91 mg/dl (70-99); Potassium 3.4 mmol/L (3.5-5.1); Sodium 151 mmol/L (135-145); Total Bilirubin 0.5 mg/dl (0.2-1.3)
[2024-04-05 13:00] VITALS: BP 140/66
[2024-04-05 14:00] VITALS: BP 138/68
[2024-04-05 15:00] VITALS: BP 114/77
== END 2024-04-05 17:33 | disposition home or self-care (01) ==
LOC: EMR 11:54
PROVIDERS: Physician Assistant; EMERGENCY PHYSICIAN Student in an Organized Health Care Education/Training Program; FAMILY PHYSICIAN Internal Medicine
DX: S81.811D Laceration without foreign body, right lower leg, subsequent encounter (principal); W22.8XXA Striking against or struck by other objects, initial encounter; Z48.00 Encounter for change or removal of nonsurgical wound dressing; Z87.891 Personal history of nicotine dependence
CPT/HCPCS: 99283; 80053; 85025

== ENCOUNTER → 2024-04-11 12:44 | Outpatient (REF) | payer MEDICARE, SELFPAY | LOC: WOUND 12:44 | PROVIDERS: ATTENDING PHYSICIAN Surgery; FAMILY PHYSICIAN Internal Medicine | DX: S86.821A Laceration of other muscle(s) and tendon(s) at lower leg level, right leg, initial encounter (principal); L97.212 Non-pressure chronic ulcer of right calf with fat layer exposed; I50.32 Chronic diastolic (congestive) heart failure; J44.9 Chronic obstructive pulmonary disease, unspecified; N18.31 Chronic kidney disease, stage 3a; I34.0 Nonrheumatic mitral (valve) insufficiency; Z87.891 Personal history of nicotine dependence; I13.0 Hypertensive heart and chronic kidney disease with heart failure and stage 1 through stage 4 chronic kidney disease, or unspecified chronic kidney disease; X58.XXXA Exposure to other specified factors, initial encounter | CPT/HCPCS: 99203 ==

== ENCOUNTER → 2024-04-18 10:22 | Outpatient (REF) | payer MEDICARE, SELFPAY | LOC: WOUND 10:22 | PROVIDERS: ATTENDING PHYSICIAN Surgery; FAMILY PHYSICIAN Internal Medicine | DX: S86.821A Laceration of other muscle(s) and tendon(s) at lower leg level, right leg, initial encounter (principal); L97.212 Non-pressure chronic ulcer of right calf with fat layer exposed; I50.32 Chronic diastolic (congestive) heart failure; J44.9 Chronic obstructive pulmonary disease, unspecified; N18.31 Chronic kidney disease, stage 3a; I34.0 Nonrheumatic mitral (valve) insufficiency; I10 Essential (primary) hypertension; Z87.891 Personal history of nicotine dependence; W08.XXXA Fall from other furniture, initial encounter | CPT/HCPCS: 99213 ==

== ENCOUNTER → 2024-04-24 08:53 | Outpatient (REF) | payer MEDICARE, SELFPAY | LOC: WOUND 08:53 | PROVIDERS: ATTENDING PHYSICIAN Surgery; FAMILY PHYSICIAN Internal Medicine | DX: S86.821A Laceration of other muscle(s) and tendon(s) at lower leg level, right leg, initial encounter (principal); L97.212 Non-pressure chronic ulcer of right calf with fat layer exposed; I50.32 Chronic diastolic (congestive) heart failure; J44.9 Chronic obstructive pulmonary disease, unspecified; N18.31 Chronic kidney disease, stage 3a; I34.0 Nonrheumatic mitral (valve) insufficiency; I11.0 Hypertensive heart disease with heart failure; Z87.891 Personal history of nicotine dependence; I13.0 Hypertensive heart and chronic kidney disease with heart failure and stage 1 through stage 4 chronic kidney disease, or unspecified chronic kidney disease | CPT/HCPCS: 99213 ==

== ENCOUNTER 2024-06-19 05:04 | Inpatient (IN) | payer MEDICARE, SELFPAY ==
[2024-06-19] VITALS (11 sets, daily range): BP systolic 114–179; BP diastolic 52–95; PULSE 62–64; O2SAT 98; BMI 40.5; BMI 40.0
[2024-06-19 01:43] LABS: % Basophils 0.1 % (0-2); % Eosinophils 0.1 % (0-6); % Immature Granulocytes 0.7 % (0-0.5); % Lymphocytes 5.2 % (20.5-51.1); % Monocytes 10.1 % (1.7-9.3); % Neutrophils 83.8 % (42.2-75.2); Absolute Immature Granulocytes 0.1 10^3/uL (0-0.05); Absolute Lymphocytes 0.9 10^3/uL (1.2-3.4); Absolute Monocytes 1.7 10^3/uL (0.1-0.6); Absolute Neutrophils 13.7 10^3/uL (1.4-6.5); Hematocrit 28.4 % (39.0-52.0); Hemoglobin 8.3 g/dL (13.0-18.0); Mean Corp Hgb Conc. 29.2 g/dL (33.0-37.0); Mean Corpuscular Hgb 23.5 pg (27.0-31.0); Mean Corpuscular Volume 80.5 fL (80.0-94.0); Mean Platelet Volume 9.1 fL (7.4-10.4); Nucleated Red Blood Cells % 0 % (-); Platelet Count 349 10^3/uL (130-400); Red Blood Cell Count 3.53 10^6/uL (4.70-6.10); Red Cell Dist. Width 17.2 % (11.5-14.5); White Blood Cell Count 16.4 10^3/uL (4.8-10.8)
--- NOTE | 2024-06-19 01:51 | ED.GENMED ---
History of Present Illness
General
Chief Complaint: Fall
Source: patient and ambulance crew
Exam Limitations: none
Time Seen by Provider: 06/19/24 01:39
Nursing documentation reviewed up to this point in time: agreed with
History of Present Illness
History of Present Illness:
84-year-old male with a past medical history of hypertension, hyperlipidemia, CAD, CHF, atrial fibrillation on Pradaxa who presents to the emergency room from home for evaluation of shortness of breath; also had a minor fall this evening. Patient
reports that for the past week he has had increased shortness of breath particularly with exertion. He says he has also had palpitations consistent with his typical A-fib symptoms. Denies any chest pain. He has had a nonproductive cough. Denies
fever. He says that today his symptoms were so severe that he felt lightheaded while he was walking and lowered himself to the ground�he says that he did not necessarily fall but sat onto his bottom and was too weak to stand up. He says a friend
was able to call EMS but he was sitting on the ground for about 2 hours prior to getting help. He denies any head strike during the fall or any other injuries. He does have right knee and left foot pain but he says that this is chronic and this is
due to gout; he denies any neck pain or back pain.
Past History
Past History
ED Past Medical History: Arrthythmia (Paroxysmal atrial fibrillation), CAD, CHF, COPD, CVA, HTN, Hypercholesterolemia and Other (CKD)
ED Past Surgical History: Cardiac and Orthopedic (Resection of a thoracic spine lesion and spinal fusion)
Social History
Tobacco: Former smoker
Alcohol: None
Drug: None
Personal:
Living: alone
Employment: Retired
Family History
Family History: Other (Noncontributory)
Review of Systems
Review of Systems
All Other Systems: ROS reviewed and negative except as documented in HPI and ROS
Constitutional: Reports fatigue; Denies fever or chills
EENT: Denies sore throat or runny nose
Respiratory: Reports cough and trouble breathing
Cardiac: Reports palpitations; Denies chest pain
ABD/GI: Denies abdominal pain, nausea or vomiting
: Denies flank pain
Musculoskeletal: Reports edema; Denies neck pain or back pain
Neurological: Reports dizzy; Denies headache
Phy Exam
Physical Exam
Physical Exam:
General: Awake, alert, oriented x3; in mild respiratory distress
Head: Normocephalic, atraumatic
Eyes: Conjunctiva normal, pupils equal round and reactive to light bilaterally
Throat: Airway intact, handling secretions
Neck: Trachea midline, no JVD, no cervical spine tenderness
Back: No signs of trauma the back or flank
Lungs: Patient is tachypneic with a respiratory rate in the mid 20s, hypoxic requiring 3 L nasal cannula; he is conversationally dyspneic speaking in 3-4 word sentences; lungs sound tight with diminished air movement and bilateral wheezing throughout
Heart: Regular rate and irregular rhythm, no murmurs, gallops, or rubs
Abd: Obese but soft, non distended, nontender
Neuro: No gross deficits
Extremities: Extremities are atraumatic; he does have +2 edema in the lower extremities bilaterally, his extremities are warm and well-perfused; his right knee although he complains of pain is not red, swollen and he has reasonable range of motion
although he does have pain on flexion and extension; similarly has some mild left midfoot tenderness but no redness or warmth
Scores
Heart Failure Risk
Heart Failure Risk Score: Not Applicable
Heart Score for Chest Pain Patients
STEMI patient?: Not applicable
Withdrawal Assessment of Alcohol
Withdrawal Assessment Completed?: Not applicable
Course
Orders/Labs/Results
Orders:
Orders
06/19/24 01:22
Electrocardiogram (*1) Urgent
Reason for Study: Other
Other Reason for Exam: Respiratory Distress
Cardiac Monitoring- Treatment ONCE
IV Insert/Care/Rem.- Treatment PRN
CR Chest - 2 Views Urgent
Comment:
Reason For Exam: respiratory distress
O2 Therapy [RESP] Urgent
Titrate/Wean O2 to maintain O2 sat greater than (%): 93
Special Instructions: TO MAINTAIN CONTINUOUS O2 SATS >/= 93%
Pulse Ox/cont/shift [RESP] Urgent
Quantity: 1
Special Instructions: continuous pulse ox
06/19/24 01:23
EKG- Treatment ONCE
06/19/24 01:28
Complete Blood Count/With Diff Urgent
Comprehensive Metabolic Panel Urgent
Creatine Phosphokinase Urgent
NT-proBNP Urgent
Troponin I Urgent
06/19/24 01:30
Add On- LAB Urgent
Tests Added?: cpk
06/19/24 01:49
Ipratropium/Albuterol Sulfate [Duoneb] 3 ml INH R NOW STA
CR Foot - Left Min 3 Views Urgent
Comment:
Reason For Exam: left foot pain
CR Knee- Right 4 Or More View* Urgent
Comment:
Reason For Exam: right knee pain
06/19/24 02:18
CT Chest W/o Iv Contrast Urgent
Comment:
Reason For Exam: hypoxia, leukocytosis, eval for occult pna
06/19/24 02:24
COVID-19 Antigen Urgent
Source: Nasal Swab
Carboxyhemoglobin Urgent
Lactate Level [Lactic Acid] Urgent
Venous Blood Gas Urgent
%Oxygen/Room Air: 90
Blood Culture Q30M
LG Source: Blood/Venous
Specimen Description:
Influenza A+B Rapid Molecular Urgent
LG Source: Nasal Swab
Specimen Description:
06/19/24 02:31
Blood Culture Q30M
LG Source: Blood/Venous
Specimen Description:
06/19/24 03:19
Ipratropium/Albuterol Sulfate [Duoneb] 3 ml INH R NOW STA
06/19/24 03:20
Furosemide [Lasix] 40 mg IV NOW STA
06/19/24 03:34
MethylPREDNISolone PF [Solu-Medrol Pf] 125 mg IV NOW STA
Abnormal Lab Results
06/19/24 06/19/24
01:28 02:24
WBC 16.4 H 10^3/uL
(4.8-10.8)
RBC 3.53 L 10^6/uL
(4.70-6.10)
Hgb 8.3 L g/dL
(13.0-18.0)
Hct 28.4 L %
(39.0-52.0)
MCH 23.5 L pg
(27.0-31.0)
MCHC 29.2 L g/dL
(33.0-37.0)
RDW 17.2 H %
(11.5-14.5)
Abs Immat Gran (auto) 0.1 H 10^3/uL
(0-0.05)
Absolute Neuts (auto) 13.7 H 10^3/uL
(1.4-6.5)
Absolute Lymphs (auto) 0.9 L 10^3/uL
(1.2-3.4)
Absolute Monos (auto) 1.7 H 10^3/uL
(0.1-0.6)
Immature Gran % 0.7 H %
(0-0.5)
Neutrophils % 83.8 H %
(42.2-75.2)
Lymphocytes % 5.2 L %
(20.5-51.1)
Monocytes % 10.1 H %
(1.7-9.3)
VBG pCO2 49 H mmHg
(35-48)
VBG HCO3 27.1 H mmol/L
(22-27)
BUN 39 H mg/dl
(9-20)
Creatinine 1.6 H mg/dL
(0.7-1.3)
Glucose 104 H mg/dl
(70-99)
Calcium 8.0 L mg/dl
(8.4-10.2)
06/19/24 01:28
06/19/24 01:28
Vital Signs
Initial and Last Documented VS:
Initial Vital Signs
Temp Pulse Resp BP Pulse Ox
37.0 C 70 20 179/76 96
06/19/24 01:23 06/19/24 01:23 06/19/24 01:23 06/19/24 01:23 06/19/24 01:23
Last Documented Vital Signs
Temp Pulse Resp BP Pulse Ox
37.0 C 79 37 179/76 95
06/19/24 01:23 06/19/24 02:00 06/19/24 02:00 06/19/24 01:23 06/19/24 01:45
MDM/Problems Addressed
Differential Diagnosis Includes:
Shortness of breath: COPD/bronchitis, pneumonia, CHF, symptomatic A-fib
MDM/Problems Addressed:
84-year-old male presents for evaluation of shortness of breath over the past week; also had minor fall as described above this evening. Vitals and exam as above. Will place an IV send labs including a CBC and CMP, VBG. Check troponin and proBNP.
Will check a CPK. Check EKG and a chest x-ray. Will treat with a DuoNeb. Regarding his fall�although he is on Pradaxa he did not have any head strike, no objective signs of head trauma, normal mental status with GCS of 15�no indication for
emergent head imaging at this point. He does have right knee and left foot pain but he says this is a chronic issue from gout nevertheless given his fall can check x-rays. No other pains or injuries notable on exam. Will monitor closely and
reassess after the above.
Labs reviewed: CBC shows leukocytosis of 16.4, stable anemia at 8.4. CMP shows stable chronic kidney disease creatinine 1.6. His VBG shows no significant amount of CO2 retention. Troponin is undetectable, proBNP is elevated at 3570; chest x-ray
shows no clear pneumonia or ga edema but given leukocytosis we will follow-up with CT chest to evaluate for occult pneumonia. Still has significant wheezing and tachypnea will treat with a second DuoNeb. Suspect some mild CHF as well given
elevated proBNP and lower extremity edema�will dose with Lasix. X-ray of the knee and foot reviewed by me shows gouty changes on the first MTP on foot x-ray, some mild arthritis on the x-ray but no acute abnormalities.
CT chest shows atelectasis but no pneumonia, no edema, no other acute pathology. At this point working diagnosis is bronchitis with component of CHF. Fortunately we have been able to wean patient off of oxygen and is now 92% on room air. He
unfortunately still remains tachypneic and conversationally dyspneic. Still has significant wheezing although his exam has improved. Will plan to admit for continued treatment. Case discussed with hospitalist.
Chronic conditions affecting care:
A-fib, CHF
Acute Exacerbation and/or Progression of Chronic Illness:
Acutely hypertensive
Acute Exacerbation and/or Progression of Chronic Illness: HTN
*Radiology
Radiology exam reviewed: preliminary read by ED provider
*Pulse Oximetry
Patient hypoxic: yes
*EKG
Interpreted by ED Provider?: Yes
Heart Rate: 71
Rate: normal
Rhythm: a-fib
[place]: normal axis
Ischemia: non-specific ST changes
*Critical Care Note
Total Time (30-74mins, 75-104mins- exclusive of procedures): Not Applicable
Data Reviewed
Review of Other/Old Records Reveals: Labs and Records
Source: patient, records and ambulance crew
Further Testing Considered But Not Given:
Considered need for CT head as above
Patient Management
Discussion with other providers: Hospitalist (Discussed with hospitalist)
Escalation/DeEscalation of care consider admission/obs:
Admission indicated
ED Attending Note
-
Portions of this chart may have been created with voice recognition software.� Occasional wrong word or��sound alike� substitutions may have occurred due to the inherent limitations of voice recognition software.
Discharge Plan
Departure
Patient Disposition: Admit
Date of Disposition: 06/19/24
Time of Disposition: 03:42
Admit to doctor: Gabino
Presentation/result/management discussed w/ accepting MD/DO: Hospitalist
Discharge Problem:
CHF exacerbation, Acute bronchitis
Prescriptions:
No Action
atorvastatin 40 MG tablet
40 mg PO QPM
dabigatran etexilate [Pradaxa] 150 MG capsule
150 mg PO BID
tamsulosin 0.4 MG capsule
0.4 mg PO HS
finasteride 5 MG tablet
5 mg PO HS
metoprolol tartrate 25 MG tablet
25 mg PO BID
levothyroxine 112 MCG tablet
112 mcg PO DAILY
fluoxetine [Prozac] 40 MG capsule
40 mg PO HS
folic acid 1 mg Tablet
1 mg PO DAILY
hydralazine 25 mg Tablet
25 mg PO TID Qty: 1 0RF
Striverdi Respimat 2.5 mcg/actuation Mist
2.5 mcg inhalation R DAILY Qty: 4 0RF
mirtazapine 15 mg Tablet
15 mg PO HS
Rx Instructions:
stop 45mg
Anoro Ellipta 62.5-25 mcg/actuation Blister With Device
1 inh INHALATION R DAILY
prednisone 20 mg Tablet
20 mg PO DAILY Qty: 1 0RF
Rx Instructions:
for 2 more days and stop
acetaminophen 325 mg Tablet
650 mg PO Q6HPRN PRN (Reason: mild pain/ fever>100.5F) Qty: 1 0RF
torsemide 10 mg tablet
10 mg PO DAILY PRN (Reason: weight gain) Qty: 1 0RF
Rx Instructions:
wt gain of> 3lb/day or >5lb/week
colchicine 0.6 mg Tablet
0.6 mg PO DAILY Qty: 1 0RF
Rx Instructions:
daily for 2 days and then prn
pantoprazole 40 mg Tablet,Delayed Release (Dr/Ec)
40 mg PO DAILY Qty: 7 0RF
Rx Instructions:
for a week and stop
Referrals:
Rajiv Pavon MD [Family Provider] -
Interventions
Interventions:
*Risk Screen - Suicide Last Done: 06/19/24 01:23
*General Assessment Last Done: 06/19/24 01:23
*Neglect/Abuse Screening Last Done: 06/19/24 01:23
*ED COVID-19 Vaccine History Last Done: 06/19/24 01:23
ED-Musculoskeletal Assessment Last Done: 06/19/24 01:30
ED- Neurological Assessment Last Done: 06/19/24 01:30
ED-Skin Assessment Last Done: 06/19/24 01:30
Discharge Date and Time
Print Language: UKRAINIAN
[2024-06-19 02:02] LABS: NT-proBNP 3570 pg/ml; Troponin I < 0.012 ng/ml
[2024-06-19 02:08] LABS: ALT (SGPT) 13 U/L (0-50); AST (SGOT) 17 U/L (17-59); Albumin 3.7 g/dl (3.5-5.0); Alkaline Phosphatase 84 U/L (38-126); Blood Urea Nitrogen 39 mg/dl (9-20); Carbon Dioxide 24 mmol/L (22-30); Chloride 105 mmol/L (98-107); Creatine Phosphokinase 57 U/L (55-170); Estimated Creatinine Clearance 46 ml/min; Glucose 104 mg/dl (70-99); Potassium 4.2 mmol/L (3.5-5.1); Sodium 141 mmol/L (135-145); Total Bilirubin 0.6 mg/dl (0.2-1.3); Total Protein 6.8 g/dl (6.3-8.2); eGFR 42.22
[2024-06-19] MEDS: DUONEB 3 ML INH ×5 (02:31→19:11)
[2024-06-19 02:39] LABS: Carboxyhemoglobin 3.8 %
[2024-06-19 02:41] LABS: Venous Blood Gas B.E. 1.2 mmol/L (-4 to +4); Venous Blood Gas HCO3 27.1 mmol/L (22-27); Venous Blood Gas O2 Sat % 69.7 %; Venous Blood Gas pCO2 49 mmHg (35-48); Venous Blood Gas pH 7.35 (7.32-7.43); Venous Blood Gas pO2 43 mmHg (30-50)
[2024-06-19 02:50] LABS: Lactic Acid 1.1 mmol/L (0.7-2.0)
[2024-06-19 02:55] LABS: COVID-19 Antigen Negative (Negative)
[2024-06-19] MEDS: SOLU-MEDROL PF 125 MG IV (03:41)
[2024-06-19] MEDS: LASIX 40 MG IV ×3 (03:41→16:00)
[2024-06-19] MEDS: TYLENOL 1000 MG PO (04:15)
[2024-06-19] MEDS: FLUSH (NSS) 1 FLUSH IV (04:15)
--- NOTE | 2024-06-19 04:57 | HPS.HSE ---
Family Physician
-
Family Physician: Rajiv Pavon
Chief Complaint
-
SOB
History of Present Illness
Patient is an 84y M with PMH significant for COPD, CHF and A-Fib who presents to ED complaining of SOB. Patient states that he has had cough productive of mucus and worsening SOB for the past 5 days. He has been using his nebulizer at home with
only minimal / temporary relief in his symptoms. Patient denies any chest pain, fevers or chills. He notes increased edema from usual baseline. He complains of pain in the LEs - L > R knees.
Patient was last hospitalized at in 02/2024 with lightheadedness / orthostatic hypotension.
At that time his Farxiga and Aldactone were discontinued and his torsemide was decreased from 40mg BID to 10mg daily as needed.
Medical History
Past Medical History
Past Medical History: Reports Other
Additional Past Medical History:
Hypertension
Chronic HFpEF
COPD
Permanent Atrial Fibrillation
Lumbar DDD
ASCVD
Gout
Morbid Obesity
Past Surgical History: Reports Other
Additional Past Surgical History:
PTCA with Stent
Lumbar laminectomy
LINQ Implant
Social History
Tobacco: Former Smoker (Quit smoking 25 years ago. > 40 pack years total use.)
Alcohol: None
Drug: None
Family History
Family History: Not pertinent
Allergies / Home Medications
Allergies reflects when Allergies were last updated in [facility].
Home Medications with original date entered in [facility]
Allergy/Medication List:
Allergies
Allergy/AdvReac Type Severity Reaction Status Date / Time
No Known Allergies Allergy Verified 02/17/24 00:25
Home Medications
atorvastatin 40 mg tablet 40 mg PO QPM High cholesterol 01/19/20
dabigatran etexilate 150 mg capsule (Pradaxa) 150 mg PO BID Blood clot prevention/tx 01/19/20
finasteride 5 mg tablet 5 mg PO HS Urinary issue 04/07/20
metoprolol tartrate 25 mg tablet 25 mg PO BID Blood pressure 04/07/20
tamsulosin 0.4 mg capsule 0.4 mg PO HS Urinary issue 04/07/20
levothyroxine 112 mcg tablet 112 mcg PO DAILY Thyroid 07/21/21
fluoxetine 40 mg capsule (Prozac) 40 mg PO HS Mental Health/Anxiety 11/02/21
folic acid 1 mg tablet 1 mg PO DAILY Supplement 06/19/23
hydralazine 25 mg tablet 25 mg PO TID #1 tab 06/25/23
olodaterol 2.5 mcg/actuation mist for inhalation (Striverdi Respimat) 2.5 mcg inhalation R DAILY #4 grams 06/25/23
mirtazapine 15 mg tablet 15 mg PO HS Mental Health 08/28/23
umeclidinium 62.5 mcg-vilanterol 25 mcg/actuation powdr for inhalation (Anoro Ellipta) 1 inh inhalation R DAILY 12/10/23
acetaminophen 325 mg tablet 650 mg (2 x 325 mg) PO Q6HPRN PRN mild pain/ fever>100.5F #1 tab 02/22/24
colchicine 0.6 mg tablet 0.6 mg PO DAILY #1 tab 02/22/24
pantoprazole 40 mg tablet,delayed release 40 mg PO DAILY #7 tabs 02/22/24
prednisone 20 mg tablet 20 mg PO DAILY #1 tab 02/22/24
torsemide 10 mg tablet 10 mg PO DAILY PRN weight gain #1 tab 02/22/24
Review of Systems
-
History Source: Patient
A 12 point ROS was completed and negative except as noted: Yes
Constitutional: Reports Fatigue; Denies Fever or Chills
EENT: Denies Sore Throat
Respiratory: Reports Cough and Trouble Breathing
Cardiac: Denies Chest Pain, Diaphoresis, Palpitations or Syncope
Abdomen/GI: Denies Abdominal Pain, Nausea, Vomiting or Diarrhea
: Denies Dysuria or Frequency
Musculoskeletal: Reports Joint Pain, Joint Swelling and Edema
Neurological: Denies Dizzy or Headache
Psych: Denies Depression or Anxiety
Physical Exam
Vital Signs
Vital Signs
Temp Pulse Resp BP Pulse Ox
98.6 F 85 29 154/78 94
06/19/24 01:23 06/19/24 04:15 06/19/24 04:15 06/19/24 04:00 06/19/24 04:15
Physical Exam
General: Other (84y M in mild distress secondary to SOB. Pos conversational dyspnea.)
HEENT: Other (Thick neck. MMM.)
Respiratory: Other (Scattered expiratory wheezes throughout. No focal rales / rhonchi.)
Cardiac: S1/S2 and Irregular Rhythm; No Murmur
GI: Other (Obese, not tender, pos BS.)
Musculoskeletal: Other (3-4+ pitting edema b/l LEs to the groin. Erythema over the LLE > RLE. Pos tenderness.)
Neuro: AO x 3
Laboratory Results
-
06/19/24 01:28
06/19/24 01:28
Laboratory Results
Lactic Acid 1.1 mmol/L (0.7-2.0) 06/19/24 02:24
Total Bilirubin 0.6 mg/dl (0.2-1.3) 06/19/24 01:28
AST 17 U/L (17-59) 06/19/24 01:28
ALT 13 U/L (0-50) 06/19/24 01:28
Alkaline Phosphatase 84 U/L (38-126) 06/19/24 01:28
Troponin I < 0.012 ng/ml 06/19/24 01:28
Impression/Plan
-
A/P: Patient is an 84y M with PMH significant for COPD and CHF who presents to ED complaining of SOB.
SOB
- Admit for further evaluation and treatment.
- Suspect symptoms are multifactorial with COPD and CHF components.
- Continue supplemental O2 and treat individual issues as noted below.
COPD with Acute Exacerbation
- Patient with recent cough symptoms / mucus production and wheezing on exam.
- Some relief with nebs at home albeit temporary.
- IV steroids, Nebs ATC and PRN.
- PO doxycycline for now.
- Follow for clinical improvement and taper / transition to PO steroids when appropriate.
Acute on Chronic HFpEF
- Patient with marked LE edema - though BNP not much changed and no rales / pulm edema appreciated.
- Predominately R sided HF symptoms.
- IV Lasix BID for now and follow I/Os, daily weights, etc.
- Note significant changes to diuretics made 02/2024 when patient presented with hypotension at that time.
- Update Echo (12/2023 = LVEF = 50-55%, Enlarged RV with normal function).
- Follow for effective diuresis / clinical improvement.
Normocytic Anemia
- Hgb = 8.3 compared to prior baseline around 02-14.
- No noted blood loss per patient.
- Heme test stools and check iron studies, etc.
- Follow for changes in H&H.
Permanent Atrial Fibrillation
- Stable. Continue current medications including Pradaxa.
ASCVD
- Stable. No complaints of chest pain. No acute ischemic appreciated on EKG.
- Continue current CV med regimen.
Benign Hypertension
- Stable. Hold hydralazine to allow for effective diuresis.
- Adjust med regimen for BP control.
CKD III
- Stable. Renal function is at / near known baseline.
- Follow for changes with diuresis.
Gout
- Current pain in the knees which patient attributes to gout flare.
- Should see improvement with IV steroids being used for AE-COPD.
- Follow for clinical changes.
BPH
- Stable. Continue current medications.
- Bladder scan protocol.
Morbid Obesity
- Affects all aspects of care.
- Encourage healthy diet and increased activity with goal of weight loss.
DVT Prophylaxis: On Pradaxa
Code Status: DNR
--- NOTE | 2024-06-19 06:33 | PTCARENOTE ---
Addendum entered by Brianna Munoz RN 06/19/24 06:41:
per Dr. Lloyd, daysflft should reevaluate.
Original Note:
Pt pulled over from stretcher to bed. Pt aaox3 and no c/o pain. While asking pt admission questions, pt admitted to being depressed over the past two weeks and has had thoughts of hurting himself at 'some point during the two weeks'. Pt denied
having current thoughts of hurting himself, having a plan and having ever attempted to hurt himself. Per protocol, pt mild risk and needs to be ordered 1:1. Nursing cargo supervisor and admitting MD Lloyd notified. Dr. Lloyd was asked if he believes pt
should have 1:1, he stated he does not. Will pass on to dayshift RN. Call corrigan within reach and plan of care ongoing.
[2024-06-19] MEDS: COLCHICINE 0.6 MG PO (07:43)
[2024-06-19] MEDS: SYNTHROID 112 MCG PO (07:43)
[2024-06-19] MEDS: VIBRAMYCIN 100 MG PO ×2 (07:44→22:00)
[2024-06-19] MEDS: FOLVITE 1 MG PO (07:44)
[2024-06-19] MEDS: PRADAXA 150 MG PO ×2 (07:44→22:00)
[2024-06-19] MEDS: LOPRESSOR 25 MG PO ×2 (07:45→22:01)
[2024-06-19] MEDS: DUONEB INH (08:20)
--- NOTE | 2024-06-19 08:47 | CARDSERVLU ---
Echocardiogram with [facility] completed after protocol screening completed. Allergies verified.
Patent IV site: RAC (existing)
IV site flushed with 0.9% NaCl pre and post administration.
Diluted bolus method utilized to enhance visualization of ventricular wallace.
Total volume given: 4 mL
Patient tolerated all procedures well without complications.
[2024-06-19 08:58] LABS: Iron < 20 ug/dl (49-181)
[2024-06-19 08:59] LABS: Total Iron Binding Capacity 400 ug/dl (261-462)
--- NOTE | 2024-06-19 10:33 | CM ---
Reviewed the chart notes and spoke with the patient at the bedside. The patient resides alone in a two story home with two steps to enter. The patient has a rolling walker, nebulizer, and stair glide. The patient has had VN in the past, but could
not recall the name of the agency. The patient has been to [facility] in past. Patient confirmed his pharmacy of choice is [facility]. The patient [facility] caregivers three [facility] The patient is currently on
supplemental O2. CM continues to be available to patient/family and is monitoring medical plan for needs at discharge.
Plan: Discharge plans will depend on the patient's progress.
[2024-06-19 11:22] LABS: TSH Reflex To Free T4 4.15 uIU/ml (0.47-4.68)
[2024-06-19 11:57] LABS: Folate > 20.0 ng/ml (2.76-20); Vitamin B12 386 pg/ml (239-931)
[2024-06-19] MEDS: DECADRON 4 MG IV ×2 (13:01→22:01)
--- NOTE | 2024-06-19 13:34 | W.PN.HOSP.TC ---
Today's Communication/Plan
-
Assessment / Plan
Assessment / Plan
Gen-AAOx3, NAD
HEENT-NC, AT, anicteric, clear oral mm
Neck-supple
CV-reg, no M, +S1/S2
Lungs-clear B/L
Abd-soft, NT, ND
Musculoskeletal-no edema, no deformity
Skin-warm and dry
Neuro-grossly non-focal
Psych-calm, cooperative
Mr. Álvarez is an 84-year-old male with a medical history of COPD, HFpEF, permanent A-fib (on Pradaxa), gout, and hypertension who presented with cough and shortness of breath for 5 days prior to arrival. He also reported bilateral lower
extremity edema. Of note, he was hospitalized in February 2024 at [facility] with lightheadedness and orthostatic hypotension at which time his Farxiga and Aldactone were discontinued and his torsemide dose was decreased to 10 mg daily as
needed. At the time of this hospitalization he was found to be approximately 8 kg above his previous discharge weight in February 2024. Chest imaging suspicious for pulmonary edema. On exam he was found to be bronchospastic. Labs showed
significant leukocytosis of 16,000. He was started on steroids, antibiotics, and diuretic. He has been admitted for further evaluation and management of suspected COPD exacerbation, CHF exacerbation, and possible pneumonia.
HFpEF, acute on chronic:
-NYHA class III
-Continue diuresis with Lasix 40 mg IV twice daily, monitor I's and O's and daily weights, weight at time of prior discharge was approximately 120 kg and he weighed 128 kg at time of this admission
-Continue beta-blockade with metoprolol tartrate 25 mg p.o. twice daily
-Had previously been on hydralazine for afterload reduction, holding for now due to borderline hypotension, resume as needed
-Echocardiogram shows normal systolic function
-Continue to monitor
COPD with acute exacerbation:
-Continue IV steroids with dexamethasone 4 mg IV every 8 hours
-Nebulizers as needed
Community-acquired pneumonia:
-No overt lobar consolidation on chest imaging
-Respiratory panel negative for COVID-19 and influenza
-Treating empirically with doxycycline for now considering cough and leukocytosis
-Follow-up cultures
Permanent A-fib:
-Continue home Pradaxa
-Rate control with metoprolol tartrate
CODE STATUS: DNR
Anticipated Discharge: 24 - 48 hours
Subjective/Interval History
-
Date of Service: June 19, 2024
Patient was seen and examined at bedside this morning. Breathing comfortably eating breakfast. No complaints. Discussed betting on horse racing.
Objective Data
-
Labs:
Laboratory Results
06/19/24
01:28
WBC 16.4 H
Hgb 8.3 L
Hct 28.4 L
Plt Count 349
Sodium 141
Potassium 4.2
Chloride 105
Carbon Dioxide 24
BUN 39 H
Creatinine 1.6 H
Glucose 104 H
Calcium 8.0 L
Total Bilirubin 0.6
AST 17
ALT 13
Alkaline Phosphatase 84
Vital Signs:
Vital Signs
Temp Pulse Resp BP Pulse Ox
98.2 F 69 16 114/55 95
06/19/24 11:13 06/19/24 11:13 06/19/24 11:13 06/19/24 11:13 06/19/24 11:13
I&O
06/18/24 06/19/24 06/20/24
06:59 06:59 06:59
Output Total 375 / 375
Balance -375 / -375
Review of Systems
-
History Source: Patient
All other systems: Reviewed and negative
Physical Exam
-
General: No Apparent Distress
[2024-06-19] MEDS: DESENEX/MITRAZOL/ZEASORB 1 APPLIC TOPICAL ×2 (14:26→22:02)
--- NOTE | 2024-06-19 15:39 | CON.CAR ---
Addendum entered and electronically signed by Marc Shin MD 06/19/24 17:03:
I saw and examined the patient.
The SIMULATION EDUCATOR's note was reviewed and I agree with the note.
Comment: Rei is a pleasant 84 yo male who is well known to me with a history of HFpEF, permanant AF, OH, Lymphedema, COPD and morbid obesity p/w weakness. He is being treated for PNA, COPD and we are asked to hlep with CHF. He is feeling better
since admission. On exam he has b/l le edema LT>Rt, lungs have some rales b/l, irreg irreg r/rhythm. He is A&Ox3. Echo shows increase in his pulmonary pressure to 60 mmHg, preserved LVEF. Mild aortic stenosis. Overall, Rei is feeling better.
He has some mild exacerbation of his HFpEF. Will continue with IV diuresis with intensive monitoring. I recommended compression therapy to the legs but he is not interested. Continue Farxiga. GDMT has been limited by orthostasis in the past. He
will continue on his DOAC therapy given permanent atrial fibrillation. Monitor for recurrent orthostasis. Will follow.
Original Note:
Consultation
Consultation Request
Date/Time Consultation Requested: 06/19/24 1356
Date/Time Consultation Performed: 06/19/24 1550
Requesting Provider: Dr. Swift
Performing Provider: Anuradha UPTON for Dr. Shin
Reason for Consultation: CHF
Medical History
-
Chief Complaint: SOB
History of Present Illness:
84 y/o male with HFpEF, CAD, hypertension, CKD3B, COPD, obesity, LE lymphedema, orthostatic hypotension, permanent AFIB on Pradaxa who is here for SOB since the weekend. He also felt weak and light-headed. Also increased LE edema. He is admitted and
being treated for COPD, CHF, and PNA. We are consulted due to CHF.
Past Medical History
Past Medical History: CAD, CHF, COPD, HTN and Other (as above)
Social History
Tobacco: Former Smoker
Family History
Family History: Reviewed & Not Pertinent
Allergies / Home Medications
Allergy/AdvReac Type Severity Reaction Status Date / Time
No Known Allergies Allergy Verified 02/17/24 00:25
�Medication �Instructions �Recorded �Confirmed �Type
atorvastatin 40 mg tablet 40 mg PO QPM High cholesterol 01/19/20 06/19/24 History
dabigatran etexilate 150 mg 150 mg PO BID Blood clot 01/19/20 06/19/24 History
capsule (Pradaxa) prevention/tx
finasteride 5 mg tablet 5 mg PO HS Urinary issue 04/07/20 06/19/24 History
metoprolol tartrate 25 mg tablet 25 mg PO BID Blood pressure 04/07/20 06/19/24 History
tamsulosin 0.4 mg capsule 0.4 mg PO HS Urinary issue 04/07/20 06/19/24 History
levothyroxine 112 mcg tablet 112 mcg PO DAILY Thyroid 07/21/21 06/19/24 History
fluoxetine 40 mg capsule (Prozac) 40 mg PO HS depression/anxiety 11/02/21 06/19/24 History
folic acid 1 mg tablet 1 mg PO DAILY Supplement 06/19/23 06/19/24 History
hydralazine 25 mg tablet 25 mg PO TID #1 tab 06/25/23 06/19/24 Rx
mirtazapine 15 mg tablet 7.5 mg PO HS sleep 08/28/23 06/19/24 History
umeclidinium 62.5 mcg-vilanterol 1 inh inhalation R DAILY 12/10/23 06/19/24 History
25 mcg/actuation powdr for Lung/Breathing Issues
inhalation (Anoro Ellipta)
acetaminophen 325 mg tablet 650 mg (2 x 325 mg) PO Q6HPRN PRN 02/22/24 06/19/24 Rx
mild pain/ fever>100.5F #1 tab
albuterol sulfate 2.5 mg/3 mL 2.5 mg inhalation QID 06/19/24 06/19/24 History
(0.083 %) solution for nebulization Lung/Breathing Issues
albuterol sulfate 90 mcg/actuation 1 puff inhalation QID PRN 06/19/24 06/19/24 History
aerosol inhaler (Ventolin HFA) wheeze/SOB
allopurinol 100 mg tablet 100 mg PO DAILY gout prophylaxis 06/19/24 06/19/24 History
clopidogrel 75 mg tablet 75 mg PO DAILY Blood Clot 06/19/24 06/19/24 History
Prevention/Tx
cyanocobalamin (vitamin B-12) 1,000 mcg PO DAILY Supplement 06/19/24 06/19/24 History
1,000 mcg tablet,extended release
dapagliflozin propanediol 10 mg 10 mg PO DAILY Heart Failure 06/19/24 06/19/24 History
tablet (Farxiga)
potassium chloride 20 mEq 20 meq PO BID Electrolyte Repletion 06/19/24 06/19/24 History
tablet,extended release(part/cryst)
torsemide 20 mg tablet 40 mg PO BID Fluid 06/19/24 06/19/24 History
Retention/Swelling
Review of Systems
-
History Source: Patient
All other systems: Negative unless noted
Respiratory: Trouble Breathing
Musculoskeletal: Edema
Neurological: Weakness
Physical Exam
Vital Signs
Temp Pulse Resp BP Pulse Ox
98 F 68 16 124/55 96
06/19/24 15:30 06/19/24 15:30 06/19/24 15:30 06/19/24 15:30 06/19/24 15:30
Lab Results
06/19/24 01:28
06/19/24 01:28
Troponin I < 0.012 ng/ml 06/19/24 01:28
Mjh-W-Fwztxrvrogi Pept 3570 pg/ml 06/19/24 01:28
Physical Exam
General: Well Developed, Well Nourished and No Apparent Distress
HEENT: Normocephalic and Anicteric
Respiratory: Crackles (b/l rales) and Other (on O2 by NC)
Cardiac: Irregular Rhythm and Peripheral Edema
Musculoskeletal: Edema (+3 BLE edema, L > R)
Neuro: AO x 3
Psych: Calm
Impression / Plan
-
Wkahq-tt-zobeasp HFpEF:
-Echo 06/19/24: Left ventricular ejection fraction is 60-65%. Normal regional wall motion. Enlarged right ventricular size. Normal right ventricular systolic function. Aortic valve is poorly visualized. Likely mild aortic stenosis; peak/mean
gradients 13/8 mmHg, calculated BRIONNA 1.8 cm2. Mild tricuspid regurgitation. Estimated pulmonary artery pressure of 60-65 mmHg.
-agree with IV Lasix, which requires intensive monitoring
-on Farxiga
COPD:
-getting breathing tx, steroids
PNA:
-on IV ABX
CAD:
-stable
-continue Plavix, statin, BB
Permanent AFIB:
-stable, continue BB and Pradaxa
Anemia:
-denies clinical bleeding
-follow
Data Reviewed
-
EKG: Tracing Personally Visualized and interpreted (AFIB 71 BPM, nonspecific T wave)
CT Scan: Report Reviewed by me (There is no evidence of pulmonary edema or pneumonia. Atelectasis within the bilateral lower lobes and posterior left upper lobe. Moderate cardiomegaly with moderate coronary artery calcifications.)
Medical Tests (Nuc Med, Echo etc): Report Reviewed by me (echo as noted)
Labs: Labs Reviewed by me
[2024-06-19] MEDS: LIPITOR 40 MG PO (17:03)
[2024-06-19] MEDS: PROZAC 40 MG PO ×2 (21:59→22:01)
[2024-06-19] MEDS: FLOMAX 0.4 MG PO (22:00)
[2024-06-19] MEDS: PROSCAR 5 MG PO (22:00)
[2024-06-20] VITALS (12 sets, daily range): BP systolic 99–160; BP diastolic 39–68; BMI 40.7
[2024-06-20] MEDS: DECADRON 4 MG IV ×3 (04:00→22:16)
[2024-06-20 06:06] LABS: Hematocrit 24.6 % (39.0-52.0); Hemoglobin 7.3 g/dL (13.0-18.0); Mean Corp Hgb Conc. 29.7 g/dL (33.0-37.0); Mean Corpuscular Hgb 23.4 pg (27.0-31.0); Mean Corpuscular Volume 78.8 fL (80.0-94.0); Mean Platelet Volume 9.2 fL (7.4-10.4); Platelet Count 268 10^3/uL (130-400); Red Blood Cell Count 3.12 10^6/uL (4.70-6.10); White Blood Cell Count 10.9 10^3/uL (4.8-10.8)
[2024-06-20] MEDS: SYNTHROID 112 MCG PO (06:06)
[2024-06-20 06:33] LABS: Blood Urea Nitrogen 46 mg/dl (9-20); Calcium 8.1 mg/dl (8.4-10.2); Carbon Dioxide 26 mmol/L (22-30); Chloride 105 mmol/L (98-107); Estimated Creatinine Clearance 46 ml/min; Glucose 135 mg/dl (70-99); HDL Cholesterol 40 mg/dl; LDL Cholesterol, Calculated 51 mg/dl; Potassium 4.6 mmol/L (3.5-5.1); Sodium 140 mmol/L (135-145); Total Cholesterol 99 mg/dl (50-199); Triglyceride 42 mg/dl (10-149); Very Low Density Lipoprotein 8 mg/dl (0-30); eGFR 42.22
[2024-06-20] MEDS: DUONEB 3 ML INH ×4 (07:47→18:03)
--- NOTE | 2024-06-20 08:34 | W.PN.CD ---
Today's Communication / Plan
-
hold pm lasix
hold pradaxa
heme test stools
type and crossmatch with hgb at noon
Impression / Plan
-
Anemia:
-unclear etiology but need ro rule out bleeding given DOAC and microcytic
-high risk situation
-denies clinical bleeding, Hgb now down to 7.3
-felling a bit lightheaded and fatigued
-no clear signs of bleeding,
-repeat hgb and type and cross
-hold pradaxa given down trend until clearly stable
Mmgdk-kz-vrqhynh HFpEF:
-Echo 06/19/24: Left ventricular ejection fraction is 60-65%. Normal regional wall motion. Enlarged right ventricular size. Normal right ventricular systolic function. Aortic valve is poorly visualized. Likely mild aortic stenosis; peak/mean
gradients 13/8 mmHg, calculated BRIONNA 1.8 cm2. Mild tricuspid regurgitation. Estimated pulmonary artery pressure of 60-65 mmHg.
-typical 'dry weight' is 280lbs
-agree with IV Lasix BID but currently bp low and hgb dropped will hold pm dose, and reconsider resuming if hbg and bp stable
-on Farxiga
-continue Plavix, statin, BB
Permanent AFIB:
-stable, continue BB and typically on Pradaxa
-Hold Pradaxa until the course of anemia more clear
COPD:
-getting breathing tx, steroids
PNA:
-on IV ABX
CAD:
-stable
Subjective:
He is lh and fatigued but breathing is improved
Physical Exam
Vital Signs/Labs
Vital Signs
Temp Pulse Resp BP Pulse Ox
97.8 F 66 16 99/60 98
06/20/24 07:30 06/20/24 07:49 06/20/24 07:49 06/20/24 07:30 06/20/24 07:49
06/19/24 06/20/24 06/21/24
06:59 06:59 06:59
Actual Weight 126.325 kg 128.622 kg
06/20/24 05:35
06/20/24 05:35
Triglycerides 42 mg/dl (10-149) 06/20/24 05:35
LDL Cholesterol, Calc 51 mg/dl 06/20/24 05:35
VLDL Cholesterol, Calc 8 mg/dl (0-30) 06/20/24 05:35
HDL Cholesterol 40 mg/dl 06/20/24 05:35
06/19/24
01:28
Txr-T-Wcxoauipmxz Pept 3570
LAB Results
06/19/24
01:28
Troponin I < 0.012
Physical Exam
Constitutional: No acute distress and Comfortable
Cardiovascular: Rhythm/rate is irregular and Pedal edema present (2+ pitting b/l )
Respiratory: Respiratory effort normal, Lungs clear to auscul., Wheeze Absent, Crackles Absent and Rhonchi Absent
Neuro/Psych: AO x 3
Data Reviewed
-
Date of Service: June 20, 2024
Medical Decision Making: Review of Case with other Provider (Dr Swift and nursing, holding pradaxa, w/u anemia. )
[2024-06-20] MEDS: FARXIGA 10 MG PO (09:06)
[2024-06-20] MEDS: ZYLOPRIM 100 MG PO (09:06)
[2024-06-20] MEDS: VIBRAMYCIN 100 MG PO ×2 (09:06→22:14)
[2024-06-20] MEDS: PLAVIX 75 MG PO (09:06)
[2024-06-20] MEDS: LOPRESSOR 25 MG PO ×2 (09:07→22:14)
[2024-06-20] MEDS: FOLVITE 1 MG PO (09:07)
[2024-06-20] MEDS: LASIX 40 MG IV (09:08)
[2024-06-20] MEDS: PRADAXA PO (09:08)
[2024-06-20] MEDS: VITAMIN B-12 1000 MCG PO (09:08)
[2024-06-20] MEDS: DESENEX/MITRAZOL/ZEASORB 1 APPLIC TOPICAL ×2 (09:14→22:29)
[2024-06-20 12:10] LABS: Hematocrit 26.1 % (39.0-52.0); Hemoglobin 7.4 g/dL (13.0-18.0); Mean Corp Hgb Conc. 28.4 g/dL (33.0-37.0); Mean Corpuscular Hgb 23.1 pg (27.0-31.0); Mean Corpuscular Volume 81.3 fL (80.0-94.0); Mean Platelet Volume 9.5 fL (7.4-10.4); Platelet Count 286 10^3/uL (130-400); Red Blood Cell Count 3.21 10^6/uL (4.70-6.10); Red Cell Dist. Width 17.2 % (11.5-14.5); White Blood Cell Count 13.2 10^3/uL (4.8-10.8)
--- NOTE | 2024-06-20 14:13 | W.PN.HOSP.TC ---
Today's Communication/Plan
-
Assessment / Plan
Assessment / Plan
Gen-AAOx3, NAD
HEENT-NC, AT, anicteric, clear oral mm
Neck-supple
CV-reg, no M, +S1/S2
Lungs-mild expiratory wheezing B/L
Abd-soft, NT, ND
Musculoskeletal-bilateral lower extremity edema to mid glasgow, no deformity
Skin-warm and dry
Neuro-grossly non-focal
Psych-calm, cooperative
Mr. Álvarez is an 84-year-old male with a medical history of COPD, HFpEF, permanent A-fib (on Pradaxa), CKD stage IIIb, gout, and hypertension who presented with cough and shortness of breath for 5 days prior to arrival. He also reported
bilateral lower extremity edema. Of note, he was hospitalized in February 2024 at [facility] with lightheadedness and orthostatic hypotension at which time his Farxiga and Aldactone were discontinued and his torsemide dose was decreased to
10 mg daily as needed. At the time of this hospitalization he was found to be approximately 8 kg above his previous discharge weight in February 2024. Chest imaging suspicious for pulmonary edema. On exam he was found to be bronchospastic. Labs
showed significant leukocytosis of 16,000. He was started on steroids, antibiotics, and diuretic. He has been admitted for further evaluation and management of suspected COPD exacerbation, CHF exacerbation, and possible pneumonia.
HFpEF, acute on chronic:
-NYHA class III
-Continue diuresis with Lasix 40 mg IV twice daily, monitor I's and O's and daily weights, weight at time of prior discharge was approximately 120 kg and he weighed 128 kg at time of this admission
-Continue beta-blockade with metoprolol tartrate 25 mg p.o. twice daily
-Had previously been on hydralazine for afterload reduction, holding for now due to borderline hypotension, resume as needed
-Echocardiogram shows normal systolic function
-Continue to monitor
COPD with acute exacerbation:
-Continue IV steroids with dexamethasone 4 mg IV every 8 hours
-Nebulizers as needed
Community-acquired pneumonia:
-No overt lobar consolidation on chest imaging
-Respiratory panel negative for COVID-19 and influenza
-Treating empirically with doxycycline for now considering presenting cough and leukocytosis
-Follow-up cultures
Permanent A-fib:
-Holding home Pradaxa due to downtrending hemoglobin
-Rate control with metoprolol tartrate
Iron deficiency anemia:
-Hemoglobin 7.3 on labs this morning
-Will transfuse 1 unit PRBCs
-Hold Pradaxa
-Monitor
-Follow-up FOBT
-No overt evidence of bleeding
CKD stage IIIb:
-Appears to be close to baseline renal function
-Continue to renally dose medications, monitor
CODE STATUS: DNR
Anticipated Discharge: 24 - 48 hours
Subjective/Interval History
-
Date of Service: June 20, 2024
Patient was seen and examined at bedside this morning. Reports improvement in his leg swelling and breathing. Hemoglobin dropped to 7.3 this morning from 8.3 on admission. Hemoglobin was over 11 in February of last year. Will order 1 unit PRBCs.
We also discussed the car joce seen from the [employer] movie [employer].
Objective Data
-
Labs:
Laboratory Results
06/20/24 06/20/24
05:35 11:47
WBC 10.9 H 13.2 H
Hgb 7.3 L 7.4 L
Hct 24.6 L 26.1 L
Plt Count 268 D 286
Sodium 140
Potassium 4.6
Chloride 105
Carbon Dioxide 26
BUN 46 H
Creatinine 1.6 H
Glucose 135 H
Calcium 8.1 L
Vital Signs:
Vital Signs
Temp Pulse Resp BP Pulse Ox
98.2 F 71 16 120/68 100
06/20/24 13:58 06/20/24 13:58 06/20/24 13:58 06/20/24 13:58 06/20/24 11:26
I&O
06/19/24 06/20/24 06/21/24
06:59 06:59 06:59
Intake Total 960 / 960 0 / 0
Output Total 1255 / 1255
Balance -295 / -295 0 / 0
Review of Systems
-
History Source: Patient
All other systems: Reviewed and negative
Musculoskeletal: Reports Edema (Bilateral lower extremities)
Physical Exam
-
General: No Apparent Distress
[2024-06-20] MEDS: LIPITOR 40 MG PO (17:41)
[2024-06-20] MEDS: PROSCAR 5 MG PO (22:18)
[2024-06-20] MEDS: FLOMAX 0.4 MG PO (22:19)
[2024-06-21] VITALS (7 sets, daily range): BP systolic 126–169; BP diastolic 66–80; O2SAT 98; BMI 40.2
[2024-06-21] MEDS: MELATONIN 5 MG PO (01:26)
[2024-06-21] MEDS: DECADRON 4 MG IV ×2 (03:58→11:12)
[2024-06-21] MEDS: SYNTHROID 112 MCG PO (06:13)
[2024-06-21] MEDS: DUONEB 3 ML INH ×4 (07:53→18:17)
[2024-06-21] MEDS: PLAVIX 75 MG PO (09:27)
[2024-06-21] MEDS: ZYLOPRIM 100 MG PO (09:27)
[2024-06-21] MEDS: VIBRAMYCIN 100 MG PO ×2 (09:27→19:55)
[2024-06-21] MEDS: FARXIGA 10 MG PO (09:27)
[2024-06-21] MEDS: LOPRESSOR 25 MG PO ×2 (09:28→20:01)
[2024-06-21] MEDS: FOLVITE 1 MG PO (09:28)
[2024-06-21] MEDS: DESENEX/MITRAZOL/ZEASORB 1 APPLIC TOPICAL ×2 (09:31→20:03)
[2024-06-21 10:09] LABS: % Basophils 0.1 % (0-2); % Immature Granulocytes 0.7 % (0-0.5); % Lymphocytes 2.4 % (20.5-51.1); % Monocytes 1.7 % (1.7-9.3); % Neutrophils 95.1 % (42.2-75.2); Absolute Immature Granulocytes 0.1 10^3/uL (0-0.05); Absolute Lymphocytes 0.3 10^3/uL (1.2-3.4); Absolute Monocytes 0.2 10^3/uL (0.1-0.6); Absolute Neutrophils 10.4 10^3/uL (1.4-6.5); Hemoglobin 8.4 g/dL (13.0-18.0); Mean Corpuscular Hgb 24.6 pg (27.0-31.0); Mean Corpuscular Volume 81.9 fL (80.0-94.0); Mean Platelet Volume 9.4 fL (7.4-10.4); Nucleated Red Blood Cells % 0.2 % (-); Platelet Count 297 10^3/uL (130-400); Red Blood Cell Count 3.42 10^6/uL (4.70-6.10); Red Cell Dist. Width 16.9 % (11.5-14.5)
[2024-06-21] MEDS: VITAMIN B-12 1000 MCG PO (10:22)
[2024-06-21 10:53] LABS: Blood Urea Nitrogen 54 mg/dl (9-20); Calcium 8.2 mg/dl (8.4-10.2); Carbon Dioxide 25 mmol/L (22-30); Chloride 104 mmol/L (98-107); Estimated Creatinine Clearance 46 ml/min; Glucose 184 mg/dl (70-99); Magnesium 2.8 mg/dl (1.6-2.3); Phosphorus 3.9 mg/dl (2.5-4.5); Potassium 4.7 mmol/L (3.5-5.1); Sodium 139 mmol/L (135-145); eGFR 42.22
--- NOTE | 2024-06-21 11:09 | W.PN.CD ---
Today's Communication / Plan
-
stop clopidogrel
transient use of ASA while DOAC held
resume lasix
monitor bp and labs intensively
given high risk situation of anemia and DOAC/Antiplatelet, would recommend inpt evaluation so that we can safely setablish when to resume.
Impression / Plan
-
Anemia:
-unclear etiology but need ro rule out bleeding given DOAC and microcytic
-high risk situation
-denies clinical bleeding, Hgb now down to 7.3 up to 8.4 with single unit
-felling a bit lightheaded and fatigued
-no clear signs of bleeding, would prefer inpatient evaluation given the need for chronic DOAC use and significant drop this hospitalization
-hold pradaxa given down trend until clearly stable, and/or timing of evaluation planned
-stopping clopidogrel, will use asa only until sorted out then transition to DOAC only
Qyryz-tj-cfdcigz HFpEF:
-Echo 06/19/24: Left ventricular ejection fraction is 60-65%. Normal regional wall motion. Enlarged right ventricular size. Normal right ventricular systolic function. Aortic valve is poorly visualized. Likely mild aortic stenosis; peak/mean
gradients 13/8 mmHg, calculated BRIONNA 1.8 cm2. Mild tricuspid regurgitation. Estimated pulmonary artery pressure of 60-65 mmHg.
-typical 'dry weight' is 280lbs
-resume lasix
-on Farxiga
-continue statin, BB
-BP has limited GDMT in the past
Permanent AFIB:
-stable, continue BB and typically on Pradaxa
-Hold Pradaxa until the course of anemia more clear
CAD:PCI of the LAD 06/20/2023-
-with anemia, ok to stop Clopidogrel and ulitmately just continue Pradaxa, but while on hold with use aspirin.
-stable
COPD:
-getting breathing tx, steroids
PNA:
-on IV ABX
Subjective:
He is lh and fatigued but breathing is improved
Physical Exam
Vital Signs/Labs
Vital Signs
Temp Pulse Resp BP Pulse Ox
97.6 F 67 16 141/78 97
06/21/24 07:44 06/21/24 07:57 06/21/24 07:57 06/21/24 07:44 06/21/24 07:57
06/20/24 06/21/24 06/22/24
06:59 06:59 06:59
Actual Weight 128.622 kg 127.204 kg
06/21/24 09:37
06/21/24 09:37
Magnesium 2.8 mg/dl (1.6-2.3) H 06/21/24 09:37
Triglycerides 42 mg/dl (10-149) 06/20/24 05:35
LDL Cholesterol, Calc 51 mg/dl 06/20/24 05:35
VLDL Cholesterol, Calc 8 mg/dl (0-30) 06/20/24 05:35
HDL Cholesterol 40 mg/dl 06/20/24 05:35
06/19/24
01:28
Tzd-M-Lrbdgykbvvr Pept 3570
LAB Results
06/19/24
01:28
Troponin I < 0.012
Physical Exam
Constitutional: No acute distress
Cardiovascular: Rhythm/rate is irregular and Pedal edema present (2+ b/l)
Respiratory: Respiratory effort normal and Rhonchi Present
Neuro/Psych: AO x 3
Data Reviewed
-
Date of Service: June 21, 2024
Medical Decision Making: Review of Case with other Provider (D/w Dr Jamison de souzae shaniqua, consider inpt evaluation of the anemia)
EKG: Other (afib rate controlled)
[2024-06-21] MEDS: LASIX 40 MG IV ×2 (11:36→17:32)
--- NOTE | 2024-06-21 14:26 | W.PN.HOSP.TC ---
Today's Communication/Plan
-
Assessment / Plan
Assessment / Plan
Gen-AAOx3, NAD
HEENT-NC, AT, anicteric, clear oral mm
Neck-supple
CV-reg, no M, +S1/S2
Lungs-mild expiratory wheezing B/L
Abd-soft, NT, ND
Musculoskeletal-bilateral lower extremity edema to mid glasgow, no deformity
Skin-warm and dry
Neuro-grossly non-focal
Psych-calm, cooperative
Mr. Álvarez is an 84-year-old male with a medical history of COPD, HFpEF, permanent A-fib (on Pradaxa), CKD stage IIIb, gout, and hypertension who presented with cough and shortness of breath for 5 days prior to arrival. He also reported
bilateral lower extremity edema. Of note, he was hospitalized in February 2024 at [facility] with lightheadedness and orthostatic hypotension at which time his Farxiga and Aldactone were discontinued and his torsemide dose was decreased to
10 mg daily as needed. At the time of this hospitalization he was found to be approximately 8 kg above his previous discharge weight in February 2024. Chest imaging suspicious for pulmonary edema. On exam he was found to be bronchospastic. Labs
showed significant leukocytosis of 16,000. He was started on steroids, antibiotics, and diuretic. He has been admitted for further evaluation and management of suspected COPD exacerbation, CHF exacerbation, and possible pneumonia.
HFpEF, acute on chronic:
-NYHA class III
-Continue diuresis with Lasix 40 mg IV twice daily, monitor I's and O's and daily weights
-Weight at time of prior discharge was approximately 120 kg and he weighed 128 kg at time of this admission, 127.2 kg today
-Continue beta-blockade with metoprolol tartrate 25 mg p.o. twice daily
-Had previously been on hydralazine for afterload reduction, have been holding due to borderline hypotension, will resume tomorrow as able
-Echocardiogram shows normal systolic function
-Continue to monitor
COPD with acute exacerbation:
-Continue IV steroids with dexamethasone 4 mg IV every 8 hours
-Nebulizers as needed
Community-acquired pneumonia:
-No overt lobar consolidation on chest imaging
-Respiratory panel negative for COVID-19 and influenza
-Treating empirically with doxycycline for now considering presenting cough and leukocytosis
-Follow-up cultures
Permanent A-fib:
-Holding home Pradaxa due to downtrending hemoglobin
-Rate control with metoprolol tartrate
Iron deficiency anemia:
-Hemoglobin 7.3 on labs morning of 06/20
-Hemoglobin 8.4 this morning 06/21 after transfusion of 1 unit PRBCs on 06/20
-Holding Pradaxa for now
-Follow-up FOBT
-To be evaluated by GI
-No overt evidence of bleeding
CKD stage IIIb:
-Appears to be close to baseline renal function
-Continue to renally dose medications, monitor
Hyperglycemia:
-Suspect due to steroids for bronchospasm which have been de-escalated
-Sliding scale insulin as needed
-Does not take diabetic medications at home
-Will check hemoglobin A1c
CODE STATUS: DNR
Anticipated Discharge: 24 - 48 hours
Subjective/Interval History
-
Date of Service: June 21, 2024
Patient was seen and examined at bedside this morning. Continues to diurese well. No complaints. Hemoglobin levels responded well this morning to transfusion of 1 unit PRBCs yesterday.
Objective Data
-
Labs:
Laboratory Results
06/21/24
09:37
WBC 11.0 H
Hgb 8.4 L
Hct 28.0 L
Plt Count 297
Sodium 139
Potassium 4.7
Chloride 104
Carbon Dioxide 25
BUN 54 H
Creatinine 1.6 H
Glucose 184 H
Calcium 8.2 L
Vital Signs:
Vital Signs
Temp Pulse Resp BP Pulse Ox
97.8 F 62 16 151/71 96
06/21/24 11:18 06/21/24 11:56 06/21/24 11:56 06/21/24 11:18 06/21/24 11:56
I&O
06/20/24 06/21/24 06/22/24
06:59 06:59 06:59
Intake Total 960 / 960 2350 / 2350
Output Total 1255 / 1255 2300 / 2300
Balance -295 / -295 50 / 50
Review of Systems
-
History Source: Patient
All other systems: Reviewed and negative
Physical Exam
-
General: No Apparent Distress
--- NOTE | 2024-06-21 15:47 | CON.GI ---
Consultation
-
Date/Time Consultation Requested: 06/21/2024, 11:30am
Date/Time Consultation Performed: 06/21/2024, 4:30 pm
Requesting Provider: Dr. Swift
Performing Provider: Dr. Dang
Reason for Consultation: drop in Hb
Medical History
Chief Complaint / HPI
Chief Complaint: SOB
History of Present Illness:
84-year-old gentleman past medical history of COPD, CHF, A-fib on Pradaxa presenting with cough and shortness of breath. Thought to likely had COPD exacerbation with acute heart failure. He has known normocytic anemia although his hemoglobin was
lower than its baseline. Typically his hemoglobin is between 9 and 12 and this admission hb went to 7.3 and improved to 8.4 after being given 1 U PRBC. Iron studies show iron less than 20, TIBC 408, percent sat cancelled, ferritin not checked. He
has been having brown stools here in the hospital. He underwent cardiac stent in June 2013. Cardiology has seen him during this hospitalization plan was to stop Plavix and just continue Pradaxa ultimately but while both on hold will give
aspirin. Last plavix dose was this AM; pradaxa 06/19.
On discussion with patient, he denies any abdominal pain, nausea, vomiting, dysphagia, heartburn, weight loss, change in bowel habits, diarrhea, constipation. Brown stools recorded here (he mentioned today looked 'cinnamon color'). No family
history of GI malignancy. He had a colonoscopy about 4 to 5 years ago on [employer]. Never had upper endoscopy.
Past Medical History
Past Medical History: CAD, CHF, COPD and HTN
Past Surgical History: Other (stent, lumbar laminectomy, LINQ implant)
Social History
Tobacco: Former Smoker
Alcohol: None
Drug: None
Family History
Family History: Reviewed & Not Pertinent
Allergies / Home Medications
Allergy/AdvReac Type Severity Reaction Status Date / Time
No Known Allergies Allergy Verified 02/17/24 00:25
�Medication �Instructions �Recorded
atorvastatin 40 mg tablet 40 mg PO QPM High cholesterol 01/19/20
dabigatran etexilate 150 mg 150 mg PO BID Blood clot 01/19/20
capsule (Pradaxa) prevention/tx
finasteride 5 mg tablet 5 mg PO HS Urinary issue 04/07/20
metoprolol tartrate 25 mg tablet 25 mg PO BID Blood pressure 04/07/20
tamsulosin 0.4 mg capsule 0.4 mg PO HS Urinary issue 04/07/20
levothyroxine 112 mcg tablet 112 mcg PO DAILY Thyroid 07/21/21
fluoxetine 40 mg capsule (Prozac) 40 mg PO HS depression/anxiety 11/02/21
folic acid 1 mg tablet 1 mg PO DAILY Supplement 06/19/23
hydralazine 25 mg tablet 25 mg PO TID #1 tab 06/25/23
mirtazapine 15 mg tablet 7.5 mg PO HS sleep 08/28/23
umeclidinium 62.5 mcg-vilanterol 1 inh inhalation R DAILY 12/10/23
25 mcg/actuation powdr for Lung/Breathing Issues
inhalation (Anoro Ellipta)
acetaminophen 325 mg tablet 650 mg (2 x 325 mg) PO Q6HPRN PRN 02/22/24
mild pain/ fever>100.5F #1 tab
albuterol sulfate 2.5 mg/3 mL 2.5 mg inhalation QID 06/19/24
(0.083 %) solution for nebulization Lung/Breathing Issues
albuterol sulfate 90 mcg/actuation 1 puff inhalation QID PRN 06/19/24
aerosol inhaler (Ventolin HFA) wheeze/SOB
allopurinol 100 mg tablet 100 mg PO DAILY gout prophylaxis 06/19/24
clopidogrel 75 mg tablet 75 mg PO DAILY Blood Clot 06/19/24
Prevention/Tx
cyanocobalamin (vitamin B-12) 1,000 mcg PO DAILY Supplement 06/19/24
1,000 mcg tablet,extended release
dapagliflozin propanediol 10 mg 10 mg PO DAILY Heart Failure 06/19/24
tablet (Farxiga)
potassium chloride 20 mEq 20 meq PO BID Electrolyte Repletion 06/19/24
tablet,extended release(part/cryst)
torsemide 20 mg tablet 40 mg PO BID Fluid 06/19/24
Retention/Swelling
Review of Systems
-
All other systems: A 12 pt ROS was Negative except as stated above in HPI
Vital Signs
Temp Pulse Resp BP Pulse Ox
97.8 F 72 16 151/71 96
06/21/24 11:18 06/21/24 15:33 06/21/24 15:33 06/21/24 11:18 06/21/24 15:33
Physical Exam
Exam
General: Other (mild SOB )
HEENT: Normocephalic
Respiratory: Clear
Cardiac: S1/S2
GI: Non Tender and Tender
Results
WBC 11.0 10^3/uL (4.8-10.8) H 06/21/24 09:37
Hgb 8.4 g/dL (13.0-18.0) L 06/21/24 09:37
Hct 28.0 % (39.0-52.0) L 06/21/24 09:37
MCV 81.9 fL (80.0-94.0) 06/21/24 09:37
Plt Count 297 10^3/uL (130-400) 06/21/24 09:37
Absolute Neuts (auto) 10.4 10^3/uL (1.4-6.5) H 06/21/24 09:37
Sodium 139 mmol/L (135-145) 06/21/24 09:37
Potassium 4.7 mmol/L (3.5-5.1) 06/21/24 09:37
Chloride 104 mmol/L (98-107) 06/21/24 09:37
Carbon Dioxide 25 mmol/L (22-30) 06/21/24 09:37
BUN 54 mg/dl (9-20) H 06/21/24 09:37
Creatinine 1.6 mg/dL (0.7-1.3) H 06/21/24 09:37
Calcium 8.2 mg/dl (8.4-10.2) L 06/21/24 09:37
Total Bilirubin 0.6 mg/dl (0.2-1.3) 06/19/24 01:28
AST 17 U/L (17-59) 06/19/24 01:28
ALT 13 U/L (0-50) 06/19/24 01:28
Alkaline Phosphatase 84 U/L (38-126) 06/19/24 01:28
Diagnostic Image Results:
Prior GI Procedures:
EGD:
Colonoscopy:
Assessment / Plan
-
84-year-old gentleman past medical history of CAD status post stent 1 year ago, COPD, heart failure, A-fib on Pradaxa and Plavix presenting with shortness of breath found to have COPD exacerbation with heart failure and incidentally was found to
have iron deficiency anemia.
Reviewed cardiology notes and I do agree given the situation of anemia and DOAC/antiplatelet recommend inpatient evaluation. However, his last dose of Plavix was this morning so typically takes 5 days to washout so we will plan tentatively to do
endoscopy and colonoscopy on pending clinical status as ideally given his age/comorbidities would like to not have to repeat procedures twice if we can avoid it and there is no active bleeding necessitating urgent procedure. Okay to
continue aspirin. We discussed the risk, benefits, and alternatives to upper endoscopy. The risks include bleeding, infection, perforation, missed lesion, and cardiopulmonary complications from anesthesia. We discussed the risks of colonoscopy
including bleeding, infection, missed lesion, incomplete procedure, perforation and cardiopulmonary complications from anesthesia. Patient is agreeable to procedures. Discussed need for prep.
Will plan to do a 2-day bowel prep and will need to do GoLytely given his kidneys next week.
-
-
Thank you for consultation and allowing me to participate in the patient's care. 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
[2024-06-21] MEDS: DUONEB INH (16:08)
[2024-06-21 17:32] LABS: Glucose - Point of Care 203 mg/dl (70-99)
[2024-06-21] MEDS: LIPITOR 40 MG PO (17:36)
[2024-06-21] MEDS: TESSALON PERLES 100 MG PO (17:37)
[2024-06-21] MEDS: NOVOLOG FLEXPEN-LOW RESISTANCE 2 UNITS SC (18:10)
[2024-06-21] MEDS: PROZAC 40 MG PO (21:08)
[2024-06-21] MEDS: PROSCAR 5 MG PO (21:08)
[2024-06-21] MEDS: FLOMAX 0.4 MG PO (21:08)
[2024-06-21 21:41] LABS: Glucose - Point of Care 175 mg/dl (70-99)
[2024-06-22 03:00] VITALS: BP 127/69
[2024-06-22] MEDS: SYNTHROID 112 MCG PO (05:46)
[2024-06-22 06:00] VITALS: BMI 40.5
[2024-06-22 07:07] LABS: % Basophils 0.1 % (0-2); % Immature Granulocytes 0.5 % (0-0.5); % Lymphocytes 5.1 % (20.5-51.1); % Monocytes 8.4 % (1.7-9.3); % Neutrophils 85.9 % (42.2-75.2); Absolute Immature Granulocytes 0.1 10^3/uL (0-0.05); Absolute Lymphocytes 0.5 10^3/uL (1.2-3.4); Absolute Monocytes 0.8 10^3/uL (0.1-0.6); Absolute Neutrophils 7.8 10^3/uL (1.4-6.5); Hematocrit 25.5 % (39.0-52.0); Hemoglobin 7.9 g/dL (13.0-18.0); Mean Corpuscular Hgb 24.8 pg (27.0-31.0); Mean Corpuscular Volume 80.2 fL (80.0-94.0); Mean Platelet Volume 9.1 fL (7.4-10.4); Nucleated Red Blood Cells % 0 % (-); Platelet Count 270 10^3/uL (130-400); Red Blood Cell Count 3.18 10^6/uL (4.70-6.10); White Blood Cell Count 9.1 10^3/uL (4.8-10.8)
[2024-06-22 07:18] VITALS: BP 147/81
[2024-06-22 07:38] LABS: Blood Urea Nitrogen 54 mg/dl (9-20); Calcium 7.9 mg/dl (8.4-10.2); Carbon Dioxide 26 mmol/L (22-30); Chloride 103 mmol/L (98-107); Estimated Creatinine Clearance 53 ml/min; Glucose 103 mg/dl (70-99); Magnesium 2.7 mg/dl (1.6-2.3); Phosphorus 3.3 mg/dl (2.5-4.5); Potassium 4.4 mmol/L (3.5-5.1); Sodium 138 mmol/L (135-145); eGFR 49.56
[2024-06-22 07:44] LABS: Glucose - Point of Care 109 mg/dl (70-99)
[2024-06-22] MEDS: NOVOLOG FLEXPEN-LOW RESISTANCE SC ×3 (07:49→16:38)
[2024-06-22] MEDS: DUONEB 3 ML INH ×4 (08:15→19:30)
[2024-06-22] MEDS: LOPRESSOR 25 MG PO ×2 (08:57→21:01)
[2024-06-22] MEDS: APRESOLINE 25 MG PO ×3 (08:57→22:42)
[2024-06-22] MEDS: DELTASONE 40 MG PO (08:58)
[2024-06-22] MEDS: FARXIGA 10 MG PO (08:58)
[2024-06-22] MEDS: LASIX 40 MG IV ×2 (08:58→16:23)
[2024-06-22] MEDS: ZYLOPRIM 100 MG PO (08:58)
[2024-06-22] MEDS: VIBRAMYCIN 100 MG PO ×2 (08:58→21:01)
[2024-06-22] MEDS: FOLVITE 1 MG PO (08:58)
[2024-06-22] MEDS: ASPIRIN 325 MG PO (09:07)
[2024-06-22] MEDS: TESSALON PERLES 100 MG PO (09:07)
[2024-06-22] MEDS: DESENEX/MITRAZOL/ZEASORB 1 APPLIC TOPICAL ×2 (09:10→21:08)
[2024-06-22] MEDS: VITAMIN B-12 1000 MCG PO (09:16)
[2024-06-22 11:10] VITALS: BP 134/72
[2024-06-22 11:28] LABS: Glucose - Point of Care 145 mg/dl (70-99)
[2024-06-22 12:15] LABS: Glycohemoglobin (HgbA1c) 5.8 % (4.0-5.6)
--- NOTE | 2024-06-22 13:59 | W.PN.HOSP.TC ---
Today's Communication/Plan
-
Assessment / Plan
Assessment / Plan
Gen-AAOx3, NAD
HEENT-NC, AT, anicteric, clear oral mm
Neck-supple
CV-reg, no M, +S1/S2
Lungs-CTA B/L
Abd-soft, NT, ND
Musculoskeletal-bilateral lower extremity edema to mid glasgow, no deformity
Skin-warm and dry
Neuro-grossly non-focal
Psych-calm, cooperative
Mr. Álvarez is an 84-year-old male with a medical history of COPD, HFpEF, permanent A-fib (on Pradaxa), CKD stage IIIb, gout, and hypertension who presented with cough and shortness of breath for 5 days prior to arrival. He also reported
bilateral lower extremity edema. Of note, he was hospitalized in February 2024 at [facility] with lightheadedness and orthostatic hypotension at which time his Farxiga and Aldactone were discontinued and his torsemide dose was decreased to
10 mg daily as needed. At the time of this hospitalization he was found to be approximately 8 kg above his previous discharge weight in February 2024. Chest imaging suspicious for pulmonary edema. On exam he was found to be bronchospastic. Labs
showed significant leukocytosis of 16,000. He was started on steroids, antibiotics, and diuretic. He has been admitted for further evaluation and management of suspected COPD exacerbation, CHF exacerbation, and possible pneumonia.
HFpEF, acute on chronic:
-NYHA class III
-Continue diuresis with Lasix 40 mg IV twice daily, monitor I's and O's and daily weights
-Weight at time of prior discharge was approximately 120 kg and he weighed 128 kg at time of this admission, fluid balance -2.3 L so far this admission
-Continue beta-blockade with metoprolol tartrate 25 mg p.o. twice daily
-Had been holding home hydralazine due to hypotension which we have now resumed
-Echocardiogram shows normal systolic function
-Continue to monitor
COPD with acute exacerbation:
-De-escalated steroids to prednisone 40 mg daily
-Nebulizers as needed
Community-acquired pneumonia:
-No overt lobar consolidation on chest imaging
-Respiratory panel negative for COVID-19 and influenza
-Treating empirically with doxycycline for now considering presenting cough and leukocytosis, today is day 4/5 of antibiotics
-Follow-up cultures
Permanent A-fib:
-Holding home Pradaxa due to downtrending hemoglobin
-Rate control with metoprolol tartrate
Iron deficiency anemia:
-Hemoglobin 7.3 on labs morning of 06/20, transfused 1 unit PRBCs and hemoglobin to 8.4
-Hemoglobin drifted down to 7.9 on repeat labs this morning
-Holding Pradaxa for now
-GI planning endoscopy this week, holding Plavix and Pradaxa
-No overt evidence of bleeding
CKD stage IIIb:
-Appears to be close to baseline renal function
-Continue to renally dose medications, monitor
Hyperglycemia:
-Improved
-Suspect due to steroids for bronchospasm which have been de-escalated
-Sliding scale insulin as needed
-Does not take diabetic medications at home
-hemoglobin A1c 5.8%
CODE STATUS: DNR
Anticipated Discharge: 24 - 48 hours
Subjective/Interval History
-
Date of Service: June 22, 2024
Patient was seen and examined at bedside this morning. Feeling well. Diuresing appropriately on IV Lasix.
Objective Data
-
Labs:
Laboratory Results
06/22/24
05:36
WBC 9.1
Hgb 7.9 L
Hct 25.5 L
Plt Count 270
Sodium 138
Potassium 4.4
Chloride 103
Carbon Dioxide 26
BUN 54 H
Creatinine 1.4 H
Glucose 103 H
Calcium 7.9 L
Vital Signs:
Vital Signs
Temp Pulse Resp BP Pulse Ox
98.6 F 63 19 134/72 97
06/22/24 11:10 06/22/24 11:10 06/22/24 11:10 06/22/24 11:10 06/22/24 11:10
I&O
06/21/24 06/22/24 06/23/24
06:59 06:59 06:59
Intake Total 2350 / 2350 1320 / 1320
Output Total 2300 / 2300 3650 / 3650
Balance 50 / 50 -2330 / -2330
Review of Systems
-
History Source: Patient
All other systems: Reviewed and negative
Physical Exam
-
General: No Apparent Distress
[2024-06-22 15:23] VITALS: BP 111/72
[2024-06-22 16:35] LABS: Glucose - Point of Care 149 mg/dl (70-99)
--- NOTE | 2024-06-22 16:56 | W.PN.CD ---
Today's Communication / Plan
-
continue diuresis
continue hgb trend
consider hep gtt if hgb stable tomorrow
Impression / Plan
-
Anemia:
-unclear etiology but need ro rule out bleeding given DOAC and microcytic
-high risk situation
-denies clinical bleeding, Hgb now down to 7.3 up to 8.4 with single unit
-felling a bit lightheaded and fatigued
-no clear signs of bleeding, would prefer inpatient evaluation given the need for chronic DOAC use and significant drop this hospitalization
-hold pradaxa given down trend until clearly stable,then consider a heparin ggt as it will be done on
-stopping clopidogrel, will use asa only until sorted out then transition to DOAC only
[id number] HFpEF:
-Echo 06/19/24: Left ventricular ejection fraction is 60-65%. Normal regional wall motion. Enlarged right ventricular size. Normal right ventricular systolic function. Aortic valve is poorly visualized. Likely mild aortic stenosis; peak/mean
gradients 13/8 mmHg, calculated BRIONNA 1.8 cm2. Mild tricuspid regurgitation. Estimated pulmonary artery pressure of 60-65 mmHg.
-typical 'dry weight' is 280lbs, please weight on standing scale
-Continue lasix
-on Farxiga
-continue statin, BB
-BP has limited GDMT in the past
Permanent AFIB:
-stable, continue BB and typically on Pradaxa
-Hold Pradaxa until the course of anemia more clear
CAD: PCI of the LAD 06/20/2023-
-with anemia, ok to stop Clopidogrel and ulitmately just continue Pradaxa, but while on hold with use aspirin.
-stable
COPD:
-getting breathing tx, steroids
PNA:
-on IV ABX
Subjective:
His breathing is improving no palps
Physical Exam
Vital Signs/Labs
Vital Signs
Temp Pulse Resp BP Pulse Ox
98.6 F 71 17 111/72 95
06/22/24 15:23 06/22/24 16:14 06/22/24 16:14 06/22/24 15:23 06/22/24 16:14
06/21/24 06/22/24 06/23/24
06:59 06:59 06:59
Actual Weight 127.204 kg 128.094 kg
06/22/24 05:36
06/22/24 05:36
Magnesium 2.7 mg/dl (1.6-2.3) H 06/22/24 05:36
Triglycerides 42 mg/dl (10-149) 06/20/24 05:35
LDL Cholesterol, Calc 51 mg/dl 06/20/24 05:35
VLDL Cholesterol, Calc 8 mg/dl (0-30) 06/20/24 05:35
HDL Cholesterol 40 mg/dl 06/20/24 05:35
06/19/24
01:28
[id number] Pept 3570
Physical Exam
Constitutional: No acute distress
Cardiovascular: Rhythm/rate is irregular, Pedal edema present (1+) and S1S2 is normal
Respiratory: Respiratory effort normal, Lungs clear to auscul., Wheeze Absent, Crackles Absent and Rhonchi Absent
Neuro/Psych: AO x 3
Data Reviewed
-
Date of Service: June 22, 2024
EKG: Other (tele is fib)
[2024-06-22] MEDS: LIPITOR 40 MG PO (18:09)
[2024-06-22 19:00] VITALS: BP 122/59
[2024-06-22 21:54] LABS: Glucose - Point of Care 123 mg/dl (70-99)
[2024-06-22] MEDS: PROSCAR 5 MG PO (22:43)
[2024-06-22] MEDS: PROZAC 40 MG PO (22:43)
[2024-06-22] MEDS: FLOMAX 0.4 MG PO (22:43)
[2024-06-22 23:00] VITALS: BP 127/72
[2024-06-23] VITALS (7 sets, daily range): BP systolic 127–157; BP diastolic 50–78; PULSE 70; O2SAT 98; BMI 40.4
[2024-06-23] MEDS: SYNTHROID 112 MCG PO (06:08)
[2024-06-23 06:12] LABS: % Basophils 0.1 % (0-2); % Immature Granulocytes 0.5 % (0-0.5); % Lymphocytes 7.2 % (20.5-51.1); % Neutrophils 83.2 % (42.2-75.2); Absolute Immature Granulocytes 0.1 10^3/uL (0-0.05); Absolute Lymphocytes 0.8 10^3/uL (1.2-3.4); Absolute Neutrophils 9.6 10^3/uL (1.4-6.5); Hematocrit 27.7 % (39.0-52.0); Hemoglobin 8.3 g/dL (13.0-18.0); Mean Corpuscular Hgb 23.9 pg (27.0-31.0); Mean Corpuscular Volume 79.8 fL (80.0-94.0); Mean Platelet Volume 9.2 fL (7.4-10.4); Nucleated Red Blood Cells % 0 % (-); Platelet Count 263 10^3/uL (130-400); Red Blood Cell Count 3.47 10^6/uL (4.70-6.10); White Blood Cell Count 11.5 10^3/uL (4.8-10.8)
[2024-06-23 06:33] LABS: Blood Urea Nitrogen 59 mg/dl (9-20); Calcium 7.8 mg/dl (8.4-10.2); Carbon Dioxide 27 mmol/L (22-30); Chloride 106 mmol/L (98-107); Estimated Creatinine Clearance 57 ml/min; Glucose 97 mg/dl (70-99); Magnesium 2.6 mg/dl (1.6-2.3); Phosphorus 3.2 mg/dl (2.5-4.5); Potassium 4.2 mmol/L (3.5-5.1); Sodium 139 mmol/L (135-145); eGFR 54.17
[2024-06-23] MEDS: DUONEB 3 ML INH ×4 (07:20→19:34)
[2024-06-23 07:41] LABS: Glucose - Point of Care 93 mg/dl (70-99)
[2024-06-23] MEDS: NOVOLOG FLEXPEN-LOW RESISTANCE SC ×2 (08:15→11:41)
[2024-06-23] MEDS: MIRALAX 17 GRAMS PO ×2 (08:20→20:37)
[2024-06-23] MEDS: LOPRESSOR PO (08:23)
[2024-06-23] MEDS: LOW STRENGTH ASPIRIN 81 MG PO (08:23)
[2024-06-23] MEDS: DELTASONE 40 MG PO (08:23)
[2024-06-23] MEDS: VIBRAMYCIN 100 MG PO ×2 (08:23→20:37)
[2024-06-23] MEDS: APRESOLINE 25 MG PO ×3 (08:23→22:38)
[2024-06-23] MEDS: FOLVITE 1 MG PO (08:23)
[2024-06-23] MEDS: FARXIGA 10 MG PO (08:23)
[2024-06-23] MEDS: ZYLOPRIM 100 MG PO (08:23)
[2024-06-23] MEDS: VITAMIN B-12 1000 MCG PO (08:23)
[2024-06-23] MEDS: LASIX 40 MG IV ×2 (08:25→16:14)
[2024-06-23] MEDS: DESENEX/MITRAZOL/ZEASORB 1 APPLIC TOPICAL ×2 (08:25→20:37)
--- NOTE | 2024-06-23 08:25 | W.PN.CD ---
Today's Communication / Plan
-
start heparin gtt given prolonged hold
continue diuresis
Impression / Plan
-
Anemia:
-unclear etiology but need ro rule out bleeding given DOAC and microcytic
-high risk situation
-denies clinical bleeding, Hgb now down to 7.3 up to 8.4 with single unit and stable
-no clear signs of bleeding, would prefer inpatient evaluation given the need for chronic DOAC use and significant drop this hospitalization
-hold Pradaxa given down trend until clearly stable, with start heparin ggt as it will be done on with intensive
-stopping clopidogrel
[id number] HFpEF:
-Echo 06/19/24: Left ventricular ejection fraction is 60-65%. Normal regional wall motion. Enlarged right ventricular size. Normal right ventricular systolic function. Aortic valve is poorly visualized. Likely mild aortic stenosis; peak/mean
gradients 13/8 mmHg, calculated BRIONNA 1.8 cm2. Mild tricuspid regurgitation. Estimated pulmonary artery pressure of 60-65 mmHg.
-typical 'dry weight' is 280lbs, please weight on standing scale
-Continue lasix
-on Farxiga
-continue statin, BB
-BP has limited GDMT in the past
Permanent AFIB:
-stable, continue BB and typically on Pradaxa
-Hold Pradaxa until the course of anemia more clear
CAD: PCI of the LAD 06/20/2023-
-with anemia, ok to stop Clopidogrel and ultimately just continue Pradaxa, but while on hold with use aspirin.
-stable
COPD:
-getting breathing tx, steroids
PNA:
-on IV ABX
Subjective:
His breathing is improving no palps
Physical Exam
Vital Signs/Labs
Vital Signs
Temp Pulse Resp BP Pulse Ox
97.4 F 43 24 152/75 100
06/23/24 07:37 06/23/24 07:37 06/23/24 07:37 06/23/24 07:37 06/23/24 07:37
06/22/24 06/23/24 06/24/24
06:59 06:59 06:59
Actual Weight 128.094 kg 127.732 kg
06/23/24 05:38
06/23/24 05:38
Magnesium 2.6 mg/dl (1.6-2.3) H 06/23/24 05:38
Triglycerides 42 mg/dl (10-149) 06/20/24 05:35
LDL Cholesterol, Calc 51 mg/dl 06/20/24 05:35
VLDL Cholesterol, Calc 8 mg/dl (0-30) 06/20/24 05:35
HDL Cholesterol 40 mg/dl 06/20/24 05:35
06/19/24
01:28
Tvw-[id number] Pept 3570
Physical Exam
Constitutional: No acute distress
Cardiovascular: Rhythm/rate is irregular, Pedal edema present (2+ b/l edema) and Systolic murmur present
Respiratory: Respiratory effort normal, Lungs clear to auscul., Wheeze Absent and Crackles Absent
Neuro/Psych: AO x 3
Data Reviewed
-
Date of Service: June 23, 2024
Medical Decision Making: Review of Case with other Provider (d/w Dr Velazquez and MUSIC [employer]POS[employer] Kaylee Morton from GI, would like to start heparin gtt given prolonged hold)
--- NOTE | 2024-06-23 10:14 | W.PN.HOSP.TC ---
Today's Communication/Plan
-
see A/P
Assessment / Plan
Assessment / Plan
Mr. Álvarez is an 84-year-old male with a medical history of COPD, HFpEF, permanent A-fib (on Pradaxa), CKD stage IIIb, gout, and hypertension who presented with cough and shortness of breath for 5 days prior to arrival. He also reported
bilateral lower extremity edema. Of note, he was hospitalized in February 2024 at [facility] with lightheadedness and orthostatic hypotension at which time his Farxiga and Aldactone were discontinued and his torsemide dose was decreased to
10 mg daily as needed. At the time of this hospitalization he was found to be approximately 8 kg above his previous discharge weight in February 2024. Chest imaging suspicious for pulmonary edema. On exam he was found to be bronchospastic. Labs
showed significant leukocytosis of 16,000. He was started on steroids, antibiotics, and diuretic. He has been admitted for further evaluation and management of suspected COPD exacerbation, CHF exacerbation, and possible pneumonia.
A/P:
# HFpEF, acute on chronic, NYHA class III
Continue diuresis with Lasix 40 mg IV twice daily, monitor I's and O's and daily weights
Continue beta-blockade with metoprolol tartrate 25 mg p.o. twice daily
Had been holding home hydralazine due to hypotension which we have now resumed
Echocardiogram shows normal systolic function
Continue to monitor
# COPD with acute exacerbation:
with resolved wheezing, stop further prednisone 40 mg daily
Nebulizers as needed
# Community-acquired pneumonia
No overt lobar consolidation on chest imaging
Respiratory panel negative for COVID-19 and influenza
Treating empirically with doxycycline for now considering presenting cough and leukocytosis, total 5 days
# Acute hypoxic respiratory insufficiency
placed on 2L NC, wean as tolerated, pt not on home O2
# Permanent A-fib:
Holding home Pradaxa due to downtrending hemoglobin,
Replaced with heparin drip per Card
Rate control with metoprolol tartrate
# Iron deficiency anemia:
s/p 1 unit PRBC
GI planning endoscopy this week, holding Plavix and Pradaxa
No overt evidence of bleeding
# ZA on CKD stage IIIb:
Cr 1.7 to 1.3 today
# Hyperglycemia:
Improved
Suspect due to steroids for bronchospasm which have been de-escalated
Sliding scale insulin as needed
Does not take diabetic medications at home
hemoglobin A1c 5.8%
DVT ppx: heparin drip
CODE STATUS: DNR
DW Card and GI PA
total time spent 51 min
Anticipated Discharge: > 48 hours
Subjective/Interval History
-
Date of Service: June 23, 2024
Objective Data
-
Labs:
Laboratory Results
06/23/24 06/23/24
05:38 10:04
WBC 11.5 H Pending
Hgb 8.3 L Pending
Hct 27.7 L Pending
Plt Count 263 Pending
APTT Pending
Sodium 139
Potassium 4.2
Chloride 106
Carbon Dioxide 27
BUN 59 H
Creatinine 1.3
Glucose 97
Calcium 7.8 L
Vital Signs:
Vital Signs
Temp Pulse Resp BP Pulse Ox
36.3 C 43 24 152/75 100
06/23/24 07:37 06/23/24 07:37 06/23/24 07:37 06/23/24 07:37 06/23/24 08:15
I&O
06/22/24 06/23/24 06/24/24
06:59 06:59 06:59
Intake Total 1320 / 1320 1320 / 1320
Output Total 3650 / 3650 2265 / 2265
Balance -2330 / -2330 -945 / -945
Review of Systems
-
All other systems: Reviewed and negative
Physical Exam
-
General: Well Developed, Well Nourished, Comfortable, Respiratory Distress (mild), Conversant and Morbidly Obese
HEENT: Normocephalic, Atraumatic and Oxygen (2L NC)
Respiratory: Clear to Auscultation and Non Labored Respirations; Negative Wheezes or Accessory Resp Muscle Use
GI: Soft, Nontender, Nondistended and Normal Bowel Sounds
Musculoskeletal: Edema, Right Lower Extrem and Edema, Left Lower Extrem
Neuro: Awake and Alert
Psych: Calm and Intact Judgement/Insight
Data Reviewed
-
Labs: Labs Reviewed by me
[2024-06-23] MEDS: HEPARIN 25000 UNITS/250 ML IV (10:45)
[2024-06-23 10:49] LABS: Hematocrit 28.1 % (39.0-52.0); Hemoglobin 8.3 g/dL (13.0-18.0); Mean Corp Hgb Conc. 29.5 g/dL (33.0-37.0); Mean Corpuscular Hgb 23.6 pg (27.0-31.0); Mean Corpuscular Volume 80.1 fL (80.0-94.0); Platelet Count 273 10^3/uL (130-400); Red Blood Cell Count 3.51 10^6/uL (4.70-6.10); Red Cell Dist. Width 17.1 % (11.5-14.5); White Blood Cell Count 13.3 10^3/uL (4.8-10.8)
[2024-06-23 10:52] LABS: APTT 30.2 Sec (23.4-35.0)
--- NOTE | 2024-06-23 11:19 | PN.CDI ---
CDI
- -
CDI:
Physician Documentation Request
Admit Date: 06/19/24 05:04
Dear Doctor Marcus,
Clinical Indicators:
Patient admitted with acute on chronic HFpEF.
06/19 ED report, 'Patient is tachypneic with a respiratory rate in the mid 20s, hypoxic requiring 3 L nasal cannula; he is conversationally dyspneic speaking in 3-4 word sentences'
VBG PCO2
06/19/24
02:24
VBG pCO2 49 H
02 requirements:
06/19/24
19:45
Oxygen Mode of Delivery BiPAP
06/19/24
08:07 06/19/24
14:58 06/23/24
11:12
Nasal Cannula flow liters per minute 2 3 2
Please clarify which of the following accurately represents the patient's respiratory status:
Acute hypoxic/hypercapnic respiratory failure
Acute respiratory insufficiency
Other
Additional information for Respiratory Failure:
Recognized criteria for Respiratory Failure (Source: [facility] Mar 2013)
ABGs: (1 or more) Symptoms Please indicate type if known
1. p)2 <60 or RA SPO2 <91% on RA 1. Tachypnea, SOB, dyspnea Hypoxic
2. pCO2 50 and pH <7.35 2. Use of accessory muscles Hypercapnic
3. pO2 decrease of pCO2 increase by 3. Pallor or cyanosis Hypoxic and Hypercapnic
10 mmHg from baseline if known 4. Anxiety or restlessness Unable to determine
5. Unable to speak in full sentences
Supplemental O2 of > 40% (5LPM) Intubation is not required
Use of terms such as suspected, likely, concern for, or probable (associated with a specific diagnosis that is being evaluated, monitored, or treated as if it exists) are acceptable and can be coded in the inpatient setting, when documented at the
time of discharge.
Thank you,
Chelsey Jolly RN BSN
CDI Specialist
available via tiger text
Please use your independent medical judgment in providing your response.
[2024-06-23 11:39] LABS: Glucose - Point of Care 124 mg/dl (70-99)
--- NOTE | 2024-06-23 14:45 | CM ---
Patient seen at bedside. Patient remains on O2 2 liters. Patient does not have home O2. Patient wants to go home with [facility]. Patient will need home O2 assessment for discharge planning needs.
Plan; home with [facility] watch for home O2 needs.
--- NOTE | 2024-06-23 15:22 | W.PN.GI.CBS2 ---
Today's Communication / Plan
-
egd/colo
Assessment / Plan
-
84-year-old gentleman past medical history of CAD status post stent 1 year ago, COPD, heart failure, A-fib on Pradaxa and Plavix presenting with shortness of breath found to have COPD exacerbation with heart failure and incidentally was found to
have iron deficiency anemia.
Reviewed cardiology notes and I do agree given the situation of anemia and DOAC/antiplatelet recommend inpatient evaluation. However, his last dose of Plavix was this morning so typically takes 5 days to washout so we will plan tentatively to do
endoscopy and colonoscopy on pending clinical status as ideally given his age/comorbidities would like to not have to repeat procedures twice if we can avoid it and there is no active bleeding necessitating urgent procedure. Okay to
continue aspirin and heparin gtt. We discussed the risk, benefits, and alternatives to upper endoscopy. The risks include bleeding, infection, perforation, missed lesion, and cardiopulmonary complications from anesthesia. We discussed the risks
of colonoscopy including bleeding, infection, missed lesion, incomplete procedure, perforation and cardiopulmonary complications from anesthesia. Patient is agreeable to procedures. Discussed need for prep.
Will plan to do a 2-day bowel prep and will need to do GoLytely given his kidneys next week.
Started miralax bid today.
Subjective
Subjective
Date of Service: June 23, 2024
no events
Objective
Data Reviewed
Laboratory Data:
Laboratory Results
06/23/24 10:28
06/23/24 05:38
Laboratory Results
APTT 30.2 Sec (23.4-35.0) 06/23/24 10:28
Phosphorus 3.2 mg/dl (2.5-4.5) 06/23/24 05:38
Magnesium 2.6 mg/dl (1.6-2.3) H 06/23/24 05:38
Total Bilirubin 0.6 mg/dl (0.2-1.3) 06/19/24 01:28
AST 17 U/L (17-59) 06/19/24 01:28
ALT 13 U/L (0-50) 06/19/24 01:28
Alkaline Phosphatase 84 U/L (38-126) 06/19/24 01:28
Vital Signs and I&O:
Vital Signs
Temp Pulse Resp BP Pulse Ox
97.4 F 58 16 127/61 96
06/23/24 11:12 06/23/24 11:31 06/23/24 11:31 06/23/24 11:12 06/23/24 11:31
I&O
06/22/24 06/23/24 06/24/24
06:59 06:59 06:59
Intake Total 1320 / 1320 1320 / 1320
Output Total 3650 / 3650 2265 / 2265
Balance -2330 / -2330 -945 / -945
Physical Exam
Physical Exam
HEENT: Anicteric
Cardiology: Normal Sinus Rhythm
Pulmonary: Clear
GI: Non Distended and Non Tender
[2024-06-23 16:33] LABS: Glucose - Point of Care 190 mg/dl (70-99)
[2024-06-23] MEDS: NOVOLOG FLEXPEN-LOW RESISTANCE 1 UNITS SC (17:18)
[2024-06-23] MEDS: LIPITOR 40 MG PO (17:19)
[2024-06-23 17:43] LABS: APTT 33.8 Sec (23.4-35.0)
[2024-06-23] MEDS: LOPRESSOR 25 MG PO (20:37)
[2024-06-23 21:38] LABS: Glucose - Point of Care 163 mg/dl (70-99)
[2024-06-23] MEDS: PROZAC 40 MG PO (22:38)
[2024-06-23] MEDS: PROSCAR 5 MG PO (22:38)
[2024-06-23] MEDS: FLOMAX 0.4 MG PO (22:38)
[2024-06-24] VITALS (7 sets, daily range): BP systolic 132–170; BP diastolic 65–99; BMI 39.9
[2024-06-24 01:02] LABS: APTT 31.3 Sec (23.4-35.0)
[2024-06-24] MEDS: SYNTHROID 112 MCG PO (06:11)
[2024-06-24 07:38] LABS: APTT 48.9 Sec (23.4-35.0); Hematocrit 30.5 % (39.0-52.0); Hemoglobin 9.1 g/dL (13.0-18.0); Mean Corp Hgb Conc. 29.8 g/dL (33.0-37.0); Mean Corpuscular Hgb 24.3 pg (27.0-31.0); Mean Corpuscular Volume 81.6 fL (80.0-94.0); Mean Platelet Volume 9.1 fL (7.4-10.4); Platelet Count 274 10^3/uL (130-400); Red Blood Cell Count 3.74 10^6/uL (4.70-6.10); Red Cell Dist. Width 17.3 % (11.5-14.5); White Blood Cell Count 11.8 10^3/uL (4.8-10.8)
[2024-06-24] MEDS: DUONEB 3 ML INH ×4 (07:59→20:09)
[2024-06-24 08:00] LABS: Glucose - Point of Care 88 mg/dl (70-99)
[2024-06-24 08:27] LABS: Blood Urea Nitrogen 51 mg/dl (9-20); Calcium 8.2 mg/dl (8.4-10.2); Carbon Dioxide 31 mmol/L (22-30); Chloride 104 mmol/L (98-107); Estimated Creatinine Clearance 61 ml/min; Glucose 84 mg/dl (70-99); Potassium 4.4 mmol/L (3.5-5.1); Sodium 141 mmol/L (135-145); eGFR 59.63
[2024-06-24] MEDS: NOVOLOG FLEXPEN-LOW RESISTANCE SC ×3 (09:08→17:56)
[2024-06-24] MEDS: APRESOLINE 25 MG PO ×3 (09:09→23:01)
[2024-06-24] MEDS: LOW STRENGTH ASPIRIN 81 MG PO (09:10)
[2024-06-24] MEDS: MIRALAX 17 GRAMS PO ×2 (09:10→20:17)
[2024-06-24] MEDS: FARXIGA 10 MG PO (09:10)
[2024-06-24] MEDS: VITAMIN B-12 1000 MCG PO (09:11)
[2024-06-24] MEDS: LOPRESSOR 25 MG PO ×2 (09:11→20:17)
[2024-06-24] MEDS: ZYLOPRIM 100 MG PO (09:11)
[2024-06-24] MEDS: FOLVITE 1 MG PO (09:12)
[2024-06-24] MEDS: LASIX 40 MG IV ×2 (09:12→16:35)
[2024-06-24] MEDS: DESENEX/MITRAZOL/ZEASORB 1 APPLIC TOPICAL ×2 (09:13→20:17)
--- NOTE | 2024-06-24 10:26 | W.PN.CD ---
Addendum entered and electronically signed by Rei Tate MD 06/26/24 14:59:
I saw and examined the patient.
The MACHINE CLOTH MEASURER's note was reviewed and I agree with the note.
Comment: 84M with HFpEF, permanent AF (on dabigatran), OH, lymphedema, COPD and morbid obesity p/w weakness. He was diagnosed with acute HFpEF. He developed anemia.
- egd/colonoscopy on
Original Note:
Today's Communication / Plan
-
Stop intravenous diuresis after today
Torsemide tomorrow but only single dose as he will be getting bowel prep to avoid electrolyte disturbance
Impression / Plan
-
IMPRESSION/PLAN: 84M with HFpEF, permanent AF (on dabigatran), OH, lymphedema, COPD and morbid obesity p/w weakness. He was diagnosed with acute HFpEF. He developed anemia.
Primary inventory taker: Dr. Shin
Anemia, unclear etiology
-High risk situation
-No clear signs of bleeding, would prefer inpatient evaluation given the need for chronic DOAC use and significant drop this hospitalization
-Pradaxa on hold, on heparin drip, aspirin while Pradaxa on hold
-Plan to permanently stop clopidogrel
-Plan for EGD/[place] on
Srvwr-qe-hgbuotw HFpEF:
-Echo 06/19/24: EF 60-65%. No RWMA. Enlarged right ventricular size. Normal RV. Aortic valve is poorly visualized. Likely mild aortic stenosis; peak/mean gradients 13/8 mmHg, calculated BRIONNA 1.8 cm2. Mild tricuspid regurgitation. Estimated pulmonary
artery pressure of 60-65 mmHg.
-Typical 'dry weight' is 280lbs, standing scale weights only
-Stop furosemide intravenously after today, 1 dose of torsemide tomorrow as he will be starting bowel prep
-Continue statin, BB, and Farxiga
-BP has limited GDMT in the past
Permanent atrial fibrillation
-Rate controlled
-Oral anticoagulation: Pradaxa on hold, on heparin drip
CAD
-Stable without chest pain
-PCI of the LAD 06/20/2023
-With anemia, okay to stop Clopidogrel and ultimately just continue Pradaxa, but while on hold with use aspirin.
COPD, acute exacerbation, per primary
CAP, on antibiotics, per primary, negative for influenza and COVID-19
Prediabetes, HbA1c 5.8%, per primary
Lymphedema, chronic
Obesity, BMI 39.9, he would benefit from weight loss
SUBJECTIVE:
Denies chest pain, shortness of breath, and dizziness
Physical Exam
Vital Signs/Labs
Vital Signs
Temp Pulse Resp BP Pulse Ox
97.6 F 63 14 170/75 98
06/24/24 07:46 06/24/24 09:09 06/24/24 08:00 06/24/24 09:11 06/24/24 08:00
06/23/24 06/24/24 06/25/24
06:59 06:59 06:59
Actual Weight 127.732 kg 126.28 kg
06/24/24 07:15
06/24/24 07:15
APTT 48.9 Sec (23.4-35.0) H 06/24/24 07:15
Magnesium 2.6 mg/dl (1.6-2.3) H 06/23/24 05:38
Triglycerides 42 mg/dl (10-149) 06/20/24 05:35
LDL Cholesterol, Calc 51 mg/dl 06/20/24 05:35
VLDL Cholesterol, Calc 8 mg/dl (0-30) 06/20/24 05:35
HDL Cholesterol 40 mg/dl 06/20/24 05:35
06/19/24
01:28
Gwn-Q-Kkoxcgwahcf Pept 3570
Physical Exam
Constitutional: No acute distress and Comfortable
EENT: Anicteric and Moist mucous membranes
Cardiovascular: Rhythm/rate is irregular, Pedal edema present and S1S2 is normal
Respiratory: Respiratory effort normal and Lungs clear to auscul.
GI: Soft, Distention absent, Flat, Non tender and Normal bowel sounds
Neuro/Psych: AO x 3
Other: Skin (Warm and dry)
Data Reviewed
-
Date of Service: June 24, 2024
[2024-06-24] MEDS: HEPARIN 25000 UNITS/250 ML IV (10:39)
--- NOTE | 2024-06-24 10:44 | W.PN.HOSP.TC ---
Addendum entered and electronically signed by Barbara Velazquez MD 06/24/24 12:38:
# Acute hypoxic/hypercapnic respiratory failure, resolved
Original Note:
Today's Communication/Plan
-
see A/P
Assessment / Plan
Assessment / Plan
Mr. Álvarez is an 84-year-old male with a medical history of COPD, HFpEF, permanent A-fib (on Pradaxa), CKD stage IIIb, gout, and hypertension who presented with cough and shortness of breath for 5 days prior to arrival. He also reported
bilateral lower extremity edema. Of note, he was hospitalized in February 2024 at [facility] with lightheadedness and orthostatic hypotension at which time his Farxiga and Aldactone were discontinued and his torsemide dose was decreased to
10 mg daily as needed. At the time of this hospitalization he was found to be approximately 8 kg above his previous discharge weight in February 2024. Chest imaging suspicious for pulmonary edema. On exam he was found to be bronchospastic. Labs
showed significant leukocytosis of 16,000. He was started on steroids, antibiotics, and diuretic. He has been admitted for further evaluation and management of suspected COPD exacerbation, CHF exacerbation, and possible pneumonia.
A/P:
# HFpEF, acute on chronic, NYHA class III
Continue Lasix 40 mg IV twice daily, monitor I's and O's and daily weights
Continue beta-blockade with metoprolol tartrate 25 mg p.o. twice daily
resumed [employer] hydralazine 25 mg TID
Echocardiogram shows normal systolic function
Continue to monitor
# COPD with acute exacerbation:
with resolved wheezing, stopped prednisone 40 mg daily
Nebulizers as needed
# Community-acquired pneumonia
No overt lobar consolidation on chest imaging
Respiratory panel negative for COVID-19 and influenza
Treating empirically with doxycycline for now considering presenting cough and leukocytosis, total 5 days
# Acute hypoxic respiratory insufficiency
placed on 2L NC, wean as tolerated, pt not on home O2
# Permanent A-fib:
Holding home Pradaxa due to downtrending hemoglobin,
Replaced with heparin drip per Card
Rate control with metoprolol tartrate
# Iron deficiency anemia:
s/p 1 unit PRBC
GI planning EGD and C scope 06/26, cont to hold Plavix and Pradaxa
No overt evidence of bleeding
# ZA on CKD stage IIIb:
Cr 1.7 to 1.2 today
# Hyperglycemia, Improved
Suspect due to steroid (stopped)
Sliding scale insulin as needed
Does not take diabetic medications at home
hemoglobin A1c 5.8%
DVT ppx: heparin drip
CODE STATUS: DNR
DW RN
Anticipated Discharge: > 48 hours
Subjective/Interval History
-
Date of Service: June 24, 2024
Objective Data
-
Labs:
Laboratory Results
06/24/24 06/24/24 06/24/24
00:41 07:15 14:00
WBC 11.8 H
Hgb 9.1 L
Hct 30.5 L
Plt Count 274
APTT 31.3 48.9 H Pending
Sodium 141
Potassium 4.4
Chloride 104
Carbon Dioxide 31 H
BUN 51 H
Creatinine 1.2
Glucose 84
Calcium 8.2 L
Vital Signs:
Vital Signs
Temp Pulse Resp BP Pulse Ox
36.4 C 63 14 170/75 98
06/24/24 07:46 06/24/24 09:09 06/24/24 08:00 06/24/24 09:11 06/24/24 08:00
I&O
06/23/24 06/24/24 06/25/24
06:59 06:59 06:59
Intake Total 1320 / 1320 840 / 840
Output Total 2265 / 2265 194 / 194
Balance -945 / -945 -1100 / -1100
Review of Systems
-
All other systems: Reviewed and negative
Physical Exam
-
General: Well Developed, Well Nourished, Comfortable, Respiratory Distress (mild), Conversant and Morbidly Obese
HEENT: Normocephalic, Atraumatic and Oxygen (2L NC)
Respiratory: Clear to Auscultation and Non Labored Respirations; Negative Wheezes or Accessory Resp Muscle Use
GI: Soft, Nontender, Nondistended and Normal Bowel Sounds
Musculoskeletal: Edema, Right Lower Extrem and Edema, Left Lower Extrem
Neuro: Awake and Alert
Psych: Calm and Intact Judgement/Insight
Data Reviewed
-
Labs: Labs Reviewed by me
--- NOTE | 2024-06-24 11:18 | W.PN.GI.CBS2 ---
Today's Communication / Plan
-
Slow 2 day colonic cleanse starting today and tomorrow
Anticipate EGD/colonoscopy on after washout of plavix/pradaxa
Assessment / Plan
-
84-year-old gentleman past medical history of CAD status post stent 1 year ago, COPD, heart failure, A-fib on Pradaxa and Plavix presenting with shortness of breath found to have COPD exacerbation with heart failure and incidentally was found to
have iron deficiency anemia.
Impression
- Iron def anemia
s/p 1u PRBC on this admission
- Chronic anticoagulation
- CAD s/p stent
- CHF
- COPD
- Afib
Recommendations
- Start slow golytle 2L today, 4L tomorrow for 2 day prep
- Full liquid diet today and CLD tomorrow
- Anticipate EGD/colon on after Plavix and pradaxa washout
- Appreciate cardiology recs
Will follow with you
Subjective
Subjective
Date of Service: June 24, 2024
Denies abd pain, nausea/vomiting. No further BM. He believes breathing is improved.
Objective
Data Reviewed
Laboratory Data:
Laboratory Results
06/24/24 07:15
06/24/24 07:15
Laboratory Results
APTT 48.9 Sec (23.4-35.0) H 06/24/24 07:15
Phosphorus 3.2 mg/dl (2.5-4.5) 06/23/24 05:38
Magnesium 2.6 mg/dl (1.6-2.3) H 06/23/24 05:38
Total Bilirubin 0.6 mg/dl (0.2-1.3) 06/19/24 01:28
AST 17 U/L (17-59) 06/19/24 01:28
ALT 13 U/L (0-50) 06/19/24 01:28
Alkaline Phosphatase 84 U/L (38-126) 06/19/24 01:28
Vital Signs and I&O:
Vital Signs
Temp Pulse Resp BP Pulse Ox
98.2 F 52 20 157/69 99
06/24/24 11:14 06/24/24 11:14 06/24/24 11:14 06/24/24 11:14 06/24/24 11:14
I&O
06/23/24 06/24/24 06/25/24
06:59 06:59 06:59
Intake Total 1320 / 1320 840 / 840
Output Total 2265 / 2265 1940 / 1940
Balance -945 / -945 -1100 / -1100
Physical Exam
Physical Exam
GEN: No acute distress, conversant, pleasant
HEENT: anicteric, extraocular movements intact, clear oropharynx without exudates
GI: soft, obese non-distended, not tender to palpation, normal active bowel sounds, no hepatosplenomegaly
EXT: warm, well perfused, 1 edema bilaterally
NEURO: AAOx3, non-focal
[2024-06-24] MEDS: DULCOLAX 10 MG PO (11:45)
[2024-06-24] MEDS: NULYTELY SOLUTION 2 LITERS PO (11:45)
[2024-06-24 11:54] LABS: Glucose - Point of Care 109 mg/dl (70-99)
[2024-06-24 14:33] LABS: APTT 53.9 Sec (23.4-35.0)
[2024-06-24] MEDS: LIPITOR 40 MG PO (17:15)
[2024-06-24 17:54] LABS: Glucose - Point of Care 90 mg/dl (70-99)
[2024-06-24 20:55] LABS: APTT 65.1 Sec (23.4-35.0)
[2024-06-24 21:17] LABS: Glucose - Point of Care 100 mg/dl (70-99)
[2024-06-24] MEDS: FLOMAX 0.4 MG PO (23:01)
[2024-06-24] MEDS: PROZAC 40 MG PO (23:01)
[2024-06-24] MEDS: REMERON 7.5 MG PO (23:01)
[2024-06-24] MEDS: PROSCAR 5 MG PO (23:02)
[2024-06-25] VITALS (7 sets, daily range): BP systolic 100–146; BP diastolic 48–81; PULSE 70; O2SAT 97; BMI 40.4
[2024-06-25] MEDS: TYLENOL 650 MG PO ×2 (00:22→21:26)
[2024-06-25] MEDS: HEPARIN 25000 UNITS/250 ML IV ×2 (00:24→17:13)
--- NOTE | 2024-06-25 02:39 | DOWNTIME ---
There was a [employer] Client Foreman/Project Manager Downtime on 06/25/2024 from 0100 to 06/25/2023 at 0235 . Downtime documentation of patient's care, including medication administrations, has been reconciled in the electronic record per guidelines. Refer to the
patient's paper chart under the miscellaneous tab to see printed paper medication records and downtime forms.
[2024-06-25 03:53] LABS: APTT 154.8 Sec (23.4-35.0)
[2024-06-25] MEDS: SYNTHROID 112 MCG PO (05:09)
[2024-06-25] MEDS: DUONEB 3 ML INH ×4 (07:34→20:49)
[2024-06-25] MEDS: LOPRESSOR PO (08:38)
[2024-06-25] MEDS: MIRALAX 17 GRAMS PO ×2 (08:38→20:00)
[2024-06-25] MEDS: VITAMIN B-12 1000 MCG PO (08:42)
[2024-06-25] MEDS: FARXIGA 10 MG PO (08:42)
[2024-06-25] MEDS: LOW STRENGTH ASPIRIN 81 MG PO (08:42)
[2024-06-25] MEDS: DEMADEX 40 MG PO (08:42)
[2024-06-25] MEDS: FOLVITE 1 MG PO (08:46)
[2024-06-25] MEDS: ZYLOPRIM 100 MG PO (08:46)
[2024-06-25] MEDS: DESENEX/MITRAZOL/ZEASORB 1 APPLIC TOPICAL ×2 (08:48→20:00)
--- NOTE | 2024-06-25 09:26 | W.PN.GI.CBS2 ---
Today's Communication / Plan
-
4L [place] today
Hold heparin gtt at 5am (orders in) on 06/26 for EGD/colon 06/26
Start protonix
Assessment / Plan
-
84-year-old gentleman past medical history of CAD status post stent 1 year ago, COPD, heart failure, A-fib on Pradaxa and Plavix presenting with shortness of breath found to have COPD exacerbation with heart failure and incidentally was found to
have iron deficiency anemia.
Impression
- Iron def anemia
s/p 1u PRBC on this admission
- Chronic anticoagulation
- CAD s/p stent
- CHF
- COPD
- Afib
Recommendations
- C/w [place] 4L today
- CLD now and NPO at [facility]
- Anticipate EGD/colon on after Plavix and pradaxa washout. Orders to hold heparin gtt placed for 5am on 06/26
- Appreciate cardiology recs
- Start protonix daily
Will follow with you
Subjective
Subjective
Date of Service: June 25, 2024
Having brown loose BMs. Denies abd pain nausea or vomiting
Objective
Data Reviewed
Laboratory Data:
Laboratory Results
APTT 154.8 Sec (23.4-35.0) H* 06/25/24 03:05
Phosphorus 3.2 mg/dl (2.5-4.5) 06/23/24 05:38
Magnesium 2.6 mg/dl (1.6-2.3) H 06/23/24 05:38
Total Bilirubin 0.6 mg/dl (0.2-1.3) 06/19/24 01:28
AST 17 U/L (17-59) 06/19/24 01:28
ALT 13 U/L (0-50) 06/19/24 01:28
Alkaline Phosphatase 84 U/L (38-126) 06/19/24 01:28
Vital Signs and I&O:
Vital Signs
Temp Pulse Resp BP Pulse Ox
97.6 F 50 16 100/70 96
06/25/24 07:20 06/25/24 08:38 06/25/24 07:35 06/25/24 07:20 06/25/24 07:35
I&O
06/24/24 06/25/24 06/26/24
06:59 06:59 06:59
Intake Total 840 / 840 1869
Output Total 1939 / 1939
Balance -1100 / -1100 -180 / -180
Physical Exam
Physical Exam
GEN: No acute distress, conversant, pleasant
HEENT: anicteric, extraocular movements intact, clear oropharynx without exudates
GI: soft, mildly distended, not tender to palpation, normal active bowel sounds, no hepatosplenomegaly
EXT: warm, well perfused, 1+ edema bilaterally
NEURO: AAOx3, non-focal
[2024-06-25] MEDS: NOVOLOG FLEXPEN-LOW RESISTANCE SC ×3 (09:39→18:29)
--- NOTE | 2024-06-25 10:28 | W.PN.CD ---
Addendum entered and electronically signed by Aldo Plasencia MD 06/25/24 16:32:
I saw and examined the patient.
The SALES COACH's note was reviewed and I agree with the note.
Patient currently comfortable respiratory status is stable. Lungs clear. Will await results of GI evaluation.
Original Note:
Today's Communication / Plan
-
AM labs pending
plan is for EGD/colonoscopy tomorrow
continue heparin drip for now with holding plan per GI
Off IV diuretic now and back on PO. Getting lower dose today in setting of GI prep, but have to monitor volume status with this.
Impression / Plan
-
IMPRESSION/PLAN: 84M with HFpEF, permanent AF (on dabigatran), OH, lymphedema, COPD and morbid obesity p/w weakness. He was diagnosed with acute HFpEF. He developed anemia.
Primary intel recruiter: Dr. Shin
Anemia, unclear etiology
-High risk situation
-No clear signs of bleeding, would prefer inpatient evaluation given the need for chronic DOAC use and significant drop this hospitalization
-Pradaxa on hold, on heparin drip, aspirin while Pradaxa on hold
-Plan to permanently stop clopidogrel
-Plan for EGD/[place] on
Nsoup-ym-[id number] HFpEF:
-Echo 06/19/24: EF 60-65%. No RWMA. Enlarged right ventricular size. Normal RV. Aortic valve is poorly visualized. Likely mild aortic stenosis; peak/mean gradients 13/8 mmHg, calculated BRIONNA 1.8 cm2. Mild tricuspid regurgitation. Estimated pulmonary
artery pressure of 60-65 mmHg.
-Typical 'dry weight' is 280lbs, standing scale weights only. He is currently 281.
-IV diuretic stopped, now back on PO daily (rather than BID) in setting of colon prep. Monitor volume.
-Continue statin, BB, and Farxiga
-BP has limited GDMT in the past
Permanent atrial fibrillation
-Rate controlled, continue BB
-Oral anticoagulation: Pradaxa on hold, on heparin drip
CAD
-Stable without chest pain
-PCI of the LAD 06/20/2023
-With anemia, okay to stop Clopidogrel and ultimately just continue Pradaxa, but while on hold with use aspirin.
COPD, acute exacerbation, per primary
CAP, on antibiotics, per primary, negative for influenza and COVID-19
Prediabetes, HbA1c 5.8%, per primary
Lymphedema, chronic
Obesity, BMI 39.9, he would benefit from weight loss
SUBJECTIVE:
Feeling improved- was a '06/16' and now is a '
Edema better per patient
Physical Exam
Vital Signs/Labs
Vital Signs
Temp Pulse Resp BP Pulse Ox
97.6 F 50 16 100/70 96
06/25/24 07:20 06/25/24 08:38 06/25/24 07:35 06/25/24 07:20 06/25/24 07:35
06/24/24 06/25/24 06/26/24
06:59 06:59 06:59
Actual Weight 126.28 kg 127.686 kg
APTT 154.8 Sec (23.4-35.0) H* 06/25/24 03:05
Magnesium 2.6 mg/dl (1.6-2.3) H 06/23/24 05:38
Triglycerides 42 mg/dl (10-149) 06/20/24 05:35
LDL Cholesterol, Calc 51 mg/dl 06/20/24 05:35
VLDL Cholesterol, Calc 8 mg/dl (0-30) 06/20/24 05:35
HDL Cholesterol 40 mg/dl 06/20/24 05:35
06/19/24
01:28
Com-Z-Mafqbcjaupv Pept 3570
Physical Exam
Constitutional: No acute distress
EENT: Anicteric
Cardiovascular: Rhythm/rate is irregular and Pedal edema present (+3 BLE edema (improved per patient))
Respiratory: Respiratory effort normal and Lungs clear to auscul.
Neuro/Psych: AO x 3
Data Reviewed
-
Date of Service: June 25, 2024
EKG: Other (AFIB, rate-controlled)
Labs: Other (labs pending)
[2024-06-25] MEDS: DULCOLAX 10 MG PO (10:39)
[2024-06-25] MEDS: NULYTELY SOLUTION 4 LITERS PO (10:41)
[2024-06-25 10:53] LABS: Hematocrit 35.3 % (39.0-52.0); Hemoglobin 10.4 g/dL (13.0-18.0); Mean Corp Hgb Conc. 29.5 g/dL (33.0-37.0); Mean Corpuscular Hgb 24.1 pg (27.0-31.0); Mean Corpuscular Volume 81.9 fL (80.0-94.0); Mean Platelet Volume 9.1 fL (7.4-10.4); Platelet Count 334 10^3/uL (130-400); Red Blood Cell Count 4.31 10^6/uL (4.70-6.10); Red Cell Dist. Width 17.9 % (11.5-14.5); White Blood Cell Count 10.7 10^3/uL (4.8-10.8)
[2024-06-25 10:58] LABS: APTT 103.1 Sec (23.4-35.0)
--- NOTE | 2024-06-25 11:07 | W.PN.HOSP.TC ---
Today's Communication/Plan
-
see A/P
Assessment / Plan
Assessment / Plan
Mr. Álvarez is an 84-year-old male with a medical history of COPD, HFpEF, permanent A-fib (on Pradaxa), CKD stage IIIb, gout, and hypertension who presented with cough and shortness of breath for 5 days prior to arrival. He also reported
bilateral lower extremity edema. Of note, he was hospitalized in February [address] [facility] with lightheadedness and orthostatic hypotension at which time his Farxiga and Aldactone were discontinued and his torsemide dose was decreased to
10 mg daily as needed. At the time of this hospitalization he was found to be approximately 8 kg above his previous discharge weight in February 2024. Chest imaging suspicious for pulmonary edema. On exam he was found to be bronchospastic. Labs
showed significant leukocytosis of 16,000. He was started on steroids, antibiotics, and diuretic. He has been admitted for further evaluation and management of suspected COPD exacerbation, CHF exacerbation, and possible pneumonia.
A/P:
# HFpEF, acute on chronic, NYHA class III
IV Lasix 40 twice daily -> Torsemide 40 mg daily
monitor I's and O's and daily weights
Continue beta-blockade with metoprolol tartrate 25 mg p.o. twice daily
resumed [employer] hydralazine 25 mg TID
Echocardiogram shows normal systolic function
Continue to monitor
# COPD with acute exacerbation, resolved
resolved wheezing, stopped prednisone 40 mg daily
Nebulizers as needed
# Community-acquired pneumonia
No overt lobar consolidation on chest imaging
Respiratory panel negative for COVID-19 and influenza
Treating empirically with doxycycline for now considering presenting cough and leukocytosis, total 5 days
# Acute hypoxic respiratory insufficiency, resolved
Was placed on 2L NC, weaned to RA, pt not on home O2
# Permanent A-fib
Holding home Pradaxa due to downtrending hemoglobin,
Replaced with heparin drip per Card
Rate control with metoprolol tartrate
# Iron deficiency anemia:
s/p 1 unit PRBC
GI planning EGD and C scope 06/26, cont to hold Plavix and Pradaxa
No overt evidence of bleeding
# ZA on CKD stage IIIb:
Cr 1.7 to 1.2
# Hyperglycemia, Improved
Suspect due to steroid (stopped)
Sliding scale insulin as needed
Does not take diabetic medications at home
hemoglobin A1c 5.8%
DVT ppx: heparin drip
CODE STATUS: DNR
Dispo: PT OT recc SNF
Anticipated Discharge: 24 - 48 hours
Subjective/Interval History
-
Date of Service: June 25, 2024
Objective Data
-
Labs:
Laboratory Results
06/25/24 06/25/24
03:05 10:26
WBC 10.7
Hgb 10.4 L
Hct 35.3 L
Plt Count 334 D
APTT 154.8 H* 103.1 H
Sodium Pending
Potassium Pending
Chloride Pending
Carbon Dioxide Pending
BUN Pending
Creatinine Pending
Glucose Pending
Calcium Pending
Vital Signs:
Vital Signs
Temp Pulse Resp BP Pulse Ox
36.4 C 50 16 100/70 96
06/25/24 07:20 06/25/24 08:38 06/25/24 07:35 06/25/24 07:20 06/25/24 07:35
I&O
06/24/24 06/25/24 06/26/24
06:59 06:59 06:59
Intake Total 840 / 840 1869 / 1869
Output Total 1939 / 1939
Balance -1100 / -1100 -180 / -180
Review of Systems
-
All other systems: Reviewed and negative
Physical Exam
-
General: Well Developed, Well Nourished, Comfortable, Conversant and Morbidly Obese
HEENT: Normocephalic and Atraumatic
Respiratory: Clear to Auscultation and Non Labored Respirations; Negative Wheezes or Accessory Resp Muscle Use
GI: Soft, Nontender, Nondistended and Normal Bowel Sounds
Musculoskeletal: Edema, Right Lower Extrem (chronic) and Edema, Left Lower Extrem (chronic)
Neuro: Awake and Alert
Psych: Calm and Intact Judgement/Insight
Data Reviewed
-
Labs: Labs Reviewed by me
[2024-06-25 11:49] LABS: Blood Urea Nitrogen 45 mg/dl (9-20); Calcium 8.1 mg/dl (8.4-10.2); Carbon Dioxide 25 mmol/L (22-30); Chloride 101 mmol/L (98-107); Estimated Creatinine Clearance 67 ml/min; Glucose 105 mg/dl (70-99); Potassium 4.4 mmol/L (3.5-5.1); Sodium 138 mmol/L (135-145); eGFR > 60.00
[2024-06-25] MEDS: LIDOCAINE 4% PATCH 1 PATCH TOPICAL (12:07)
[2024-06-25 12:12] LABS: Glucose - Point of Care 119 mg/dl (70-99)
[2024-06-25] MEDS: APRESOLINE PO ×2 (12:48→22:58)
--- NOTE | 2024-06-25 16:58 | CM ---
Continued Heparin gtt.
Weaned to room air.
Lasix changed to po.
Jael Patterson referral in care port.
PLAN Home with Jael PATTERSON
[2024-06-25] MEDS: APRESOLINE 25 MG PO (17:12)
[2024-06-25] MEDS: LIPITOR 40 MG PO (17:13)
[2024-06-25 17:55] LABS: APTT 167.4 Sec (23.4-35.0)
--- NOTE | 2024-06-25 18:30 | PTCARENOTE ---
All of ordered bowel prep completed. Stool remains liquid brown at this time.
[2024-06-25] MEDS: LOPRESSOR 25 MG PO (19:59)
[2024-06-25] MEDS: NSS (PRESERVATIVE FREE) 10 ML IV (20:00)
[2024-06-25] MEDS: PROTONIX IV 40 MG IV (20:00)
[2024-06-25] MEDS: PROZAC 40 MG PO (21:26)
[2024-06-25] MEDS: PROSCAR 5 MG PO (21:26)
[2024-06-25] MEDS: FLOMAX 0.4 MG PO (21:26)
[2024-06-26] VITALS (12 sets, daily range): BP systolic 14–152; BP diastolic 48–114; PULSE 76; O2SAT 93; BMI 40.5
[2024-06-26 00:36] LABS: APTT 92.6 Sec (23.4-35.0)
[2024-06-26] MEDS: ZYLOPRIM 100 MG PO ×2 (05:39→07:59)
[2024-06-26] MEDS: SYNTHROID 112 MCG PO (05:39)
[2024-06-26 05:42] LABS: Hematocrit 34.7 % (39.0-52.0); Hemoglobin 10.1 g/dL (13.0-18.0); Mean Corp Hgb Conc. 29.1 g/dL (33.0-37.0); Mean Corpuscular Hgb 23.8 pg (27.0-31.0); Mean Corpuscular Volume 81.8 fL (80.0-94.0); Mean Platelet Volume 8.9 fL (7.4-10.4); Platelet Count 323 10^3/uL (130-400); Red Blood Cell Count 4.24 10^6/uL (4.70-6.10); Red Cell Dist. Width 17.9 % (11.5-14.5); White Blood Cell Count 12.8 10^3/uL (4.8-10.8)
[2024-06-26 06:02] LABS: Blood Urea Nitrogen 37 mg/dl (9-20); Calcium 8.1 mg/dl (8.4-10.2); Carbon Dioxide 31 mmol/L (22-30); Chloride 99 mmol/L (98-107); Estimated Creatinine Clearance 61 ml/min; Glucose 86 mg/dl (70-99); Potassium 3.9 mmol/L (3.5-5.1); Sodium 138 mmol/L (135-145); eGFR 59.63
[2024-06-26] MEDS: DUONEB 3 ML INH ×4 (07:27→19:20)
[2024-06-26] MEDS: LOW STRENGTH ASPIRIN PO (07:56)
[2024-06-26] MEDS: DEMADEX 40 MG PO (07:56)
[2024-06-26] MEDS: APRESOLINE 25 MG PO ×3 (07:57→22:16)
[2024-06-26] MEDS: LOPRESSOR 25 MG PO ×2 (07:59→20:33)
[2024-06-26] MEDS: FARXIGA 10 MG PO (08:00)
[2024-06-26] MEDS: FOLVITE 1 MG PO (08:00)
[2024-06-26] MEDS: NSS (PRESERVATIVE FREE) 10 ML IV ×2 (08:01→20:34)
[2024-06-26] MEDS: LIDOCAINE 4% PATCH 1 PATCH TOPICAL (08:02)
[2024-06-26] MEDS: PROTONIX IV 40 MG IV ×2 (08:02→20:34)
[2024-06-26] MEDS: DESENEX/MITRAZOL/ZEASORB 1 APPLIC TOPICAL ×2 (08:04→20:36)
[2024-06-26] MEDS: MIRALAX PO ×2 (08:05→20:34)
[2024-06-26] MEDS: VITAMIN B-12 1000 MCG PO (08:09)
--- NOTE | 2024-06-26 08:17 | W.PN.CD ---
Today's Communication / Plan
-
EGD/[place] today
reassess volume as his weight is up
gout care per medicine
Impression / Plan
-
IMPRESSION/PLAN: 84M with HFpEF, permanent AF (on dabigatran), OH, lymphedema, COPD and morbid obesity p/w weakness. He was diagnosed with acute HFpEF. He developed anemia.
Primary dado operator: Dr. Shin
Anemia, unclear etiology
-High risk situation
-No clear signs of bleeding, would prefer inpatient evaluation given the need for chronic DOAC use and significant drop this hospitalization
-Pradaxa on hold, on heparin drip, aspirin while Pradaxa on hold
-Plan to permanently stop clopidogrel
-Plan for EGD/[place] on
Ihqug-br-vfdfoat HFpEF:
-Echo 06/19/24: EF 60-65%. No RWMA. Enlarged right ventricular size. Normal RV. Aortic valve is poorly visualized. Likely mild aortic stenosis; peak/mean gradients 13/8 mmHg, calculated BRIONNA 1.8 cm2. Mild tricuspid regurgitation. Estimated pulmonary
artery pressure of 60-65 mmHg.
-Typical 'dry weight' is 280lbs, standing scale weights only. He is currently 282.
-IV diuretic stopped, now back on PO daily (rather than BID) in setting of colon prep. Monitor volume.
-?+ with diuresis and prep, wt slightly up
-will need to reassess volume status after completes GI procedures
-Continue statin, BB, and Farxiga
-BP has limited GDMT in the past
Permanent atrial fibrillation
-Rate controlled, continue BB
-Oral anticoagulation: Pradaxa on hold, on heparin drip
CAD
-Stable without chest pain
-PCI of the LAD 06/20/2023
-With anemia, okay to stop Clopidogrel and ultimately just continue Pradaxa, but while on hold with use aspirin.
COPD, acute exacerbation, per primary
CAP, on antibiotics, per primary, negative for influenza and COVID-19
Prediabetes, HbA1c 5.8%, per primary
Lymphedema, chronic
Obesity, BMI 39.9, he would benefit from weight loss
SUBJECTIVE:
gout is acting up, he is starving
Physical Exam
Vital Signs/Labs
Vital Signs
Temp Pulse Resp BP Pulse Ox
97.5 F 73 16 152/73 99
06/26/24 07:15 06/26/24 07:28 06/26/24 07:28 06/26/24 07:15 06/26/24 07:28
06/25/24 06/26/24 06/27/24
06:59 06:59 06:59
Actual Weight 127.686 kg 128.049 kg
06/26/24 05:17
06/26/24 05:17
APTT 92.6 Sec (23.4-35.0) H 06/26/24 00:16
Magnesium 2.6 mg/dl (1.6-2.3) H 06/23/24 05:38
Triglycerides 42 mg/dl (10-149) 06/20/24 05:35
LDL Cholesterol, Calc 51 mg/dl 06/20/24 05:35
VLDL Cholesterol, Calc 8 mg/dl (0-30) 06/20/24 05:35
HDL Cholesterol 40 mg/dl 06/20/24 05:35
06/19/24
01:28
Xeh-A-Zdpftqgjlse Pept 3570
Physical Exam
Constitutional: No acute distress
Cardiovascular: Rhythm & rate is regular and Pedal edema present (2+ pitting and nonpitting edema b/l)
Respiratory: Respiratory effort normal, Lungs clear to auscul., Wheeze Absent and Crackles Absent
Neuro/Psych: AO x 3
Data Reviewed
-
Date of Service: June 26, 2024
EKG: Other (tele fib with rate control rare pvcs)
[2024-06-26] MEDS: NOVOLOG FLEXPEN-LOW RESISTANCE SC ×3 (09:25→17:03)
--- NOTE | 2024-06-26 09:51 | W.PN.HOSP.TC ---
Today's Communication/Plan
-
see A/P
Assessment / Plan
Assessment / Plan
Mr. Álvarez is an 84-year-old male with a medical history of COPD, HFpEF, permanent A-fib (on Pradaxa), CKD stage IIIb, gout, and hypertension who presented with cough and shortness of breath for 5 days prior to arrival. He also reported
bilateral lower extremity edema. Of note, he was hospitalized in February 2024 at [facility] with lightheadedness and orthostatic hypotension at which time his Farxiga and Aldactone were discontinued and his torsemide dose was decreased to
10 mg daily as needed. At the time of this hospitalization he was found to be approximately 8 kg above his previous discharge weight in February 2024. Chest imaging suspicious for pulmonary edema. On exam he was found to be bronchospastic. Labs
showed significant leukocytosis of 16,000. He was started on steroids, antibiotics, and diuretic. He has been admitted for further evaluation and management of suspected COPD exacerbation, CHF exacerbation, and possible pneumonia.
A/P:
# HFpEF, acute on chronic, NYHA class III
IV Lasix 40 twice daily -> Torsemide 40 mg daily
monitor I's and O's and daily weights
Continue beta-blockade with metoprolol tartrate 25 mg p.o. twice daily
resumed MATERIALS DIRECTOR hydralazine 25 mg BID
Echocardiogram shows normal systolic function
Continue to monitor
# COPD with acute exacerbation, resolved
resolved wheezing, stopped prednisone 40 mg daily
Nebulizers as needed
# Community-acquired pneumonia
No overt lobar consolidation on chest imaging
Respiratory panel negative for COVID-19 and influenza
Treating empirically with doxycycline for now considering presenting cough and leukocytosis, total 5 days
# Acute hypoxic respiratory insufficiency, resolved
Was placed on 2L NC, weaned to RA, pt not on home O2
# Permanent A-fib
Holding home Pradaxa due to downtrending hemoglobin,
Replaced with heparin drip per Card
Rate control with metoprolol tartrate
# Iron deficiency anemia:
s/p 1 unit PRBC
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
Per GI, OK to resume heparin gtt and anticoagulation tomorrow if no bleeding seen.
No overt evidence of bleeding
# ZA on CKD stage IIIb:
Cr 1.7 to 1.2
# Hyperglycemia, Improved
Suspect due to steroid (stopped)
Sliding scale insulin as needed
Does not take diabetic medications at home
hemoglobin A1c 5.8%
DVT ppx: heparin drip
CODE STATUS: DNR
Dispo: HH
DW GI
Anticipated Discharge: Within 24 hours
Subjective/Interval History
-
Date of Service: June 26, 2024
Objective Data
-
Labs:
Laboratory Results
06/26/24 06/26/24
00:16 05:17
WBC 12.8 H
Hgb 10.1 L
Hct 34.7 L
Plt Count 323
APTT 92.6 H
Sodium 138
Potassium 3.9
Chloride 99
Carbon Dioxide 31 H
BUN 37 H
Creatinine 1.2
Glucose 86
Calcium 8.1 L
Vital Signs:
Vital Signs
Temp Pulse Resp BP Pulse Ox
36.4 C 73 16 152/73 99
06/26/24 07:15 06/26/24 07:28 06/26/24 07:28 06/26/24 07:15 06/26/24 07:28
I&O
06/25/24 06/26/24 06/27/24
06:59 06:59 06:59
Intake Total 1869 5430 / 5430
Output Total 2049 1750 / 175
Balance -180 / -180 3680 / 3680
Review of Systems
-
All other systems: Reviewed and negative
Physical Exam
-
General: Well Developed, Well Nourished, Comfortable, Conversant and Morbidly Obese
HEENT: Normocephalic and Atraumatic
Respiratory: Clear to Auscultation and Non Labored Respirations; Negative Wheezes or Accessory Resp Muscle Use
GI: Soft, Nontender, Nondistended and Normal Bowel Sounds
Musculoskeletal: Edema, Right Lower Extrem (chronic) and Edema, Left Lower Extrem (chronic)
Neuro: Awake and Alert
Psych: Calm and Intact Judgement/Insight
Data Reviewed
-
Labs: Labs Reviewed by me
[2024-06-26 11:24] LABS: Glucose - Point of Care 90 mg/dl (70-99)
[2024-06-26] MEDS: TYLENOL 650 MG PO ×2 (11:32→20:35)
[2024-06-26] MEDS: KCL 20 MEQ PO (16:37)
[2024-06-26 16:39] LABS: Glucose - Point of Care 127 mg/dl (70-99)
[2024-06-26] MEDS: LASIX 40 MG IV (16:59)
[2024-06-26] MEDS: LIPITOR 40 MG PO (17:00)
[2024-06-26 21:44] LABS: Glucose - Point of Care 138 mg/dl (70-99)
[2024-06-26] MEDS: PROZAC 40 MG PO (22:15)
[2024-06-26] MEDS: PROSCAR 5 MG PO (22:15)
[2024-06-26] MEDS: FLOMAX 0.4 MG PO (22:16)
[2024-06-27] MEDS: TYLENOL 650 MG PO (02:32)
[2024-06-27 03:41] VITALS: BP 134/110
[2024-06-27] MEDS: SYNTHROID 112 MCG PO (05:12)
[2024-06-27 05:43] LABS: Hematocrit 31.6 % (39.0-52.0); Hemoglobin 9.2 g/dL (13.0-18.0); Mean Corp Hgb Conc. 29.1 g/dL (33.0-37.0); Mean Corpuscular Hgb 23.7 pg (27.0-31.0); Mean Corpuscular Volume 81.4 fL (80.0-94.0); Platelet Count 266 10^3/uL (130-400); Red Blood Cell Count 3.88 10^6/uL (4.70-6.10); Red Cell Dist. Width 18.1 % (11.5-14.5); White Blood Cell Count 10.2 10^3/uL (4.8-10.8)
[2024-06-27 06:08] LABS: Blood Urea Nitrogen 34 mg/dl (9-20); Carbon Dioxide 33 mmol/L (22-30); Chloride 100 mmol/L (98-107); Estimated Creatinine Clearance 57 ml/min; Glucose 97 mg/dl (70-99); Sodium 138 mmol/L (135-145); eGFR 54.17
[2024-06-27 06:10] VITALS: BMI 40.3
[2024-06-27] MEDS: DUONEB 3 ML INH ×2 (07:10→11:03)
[2024-06-27 07:36] VITALS: BP 132/52
[2024-06-27 07:42] LABS: Glucose - Point of Care 102 mg/dl (70-99)
[2024-06-27] MEDS: NOVOLOG FLEXPEN-LOW RESISTANCE SC ×2 (07:45→11:48)
[2024-06-27] MEDS: PLAVIX 75 MG PO (08:22)
[2024-06-27] MEDS: PRADAXA 150 MG PO (08:22)
[2024-06-27] MEDS: LOW STRENGTH ASPIRIN 81 MG PO (08:23)
[2024-06-27] MEDS: DESENEX/MITRAZOL/ZEASORB 1 APPLIC TOPICAL (08:23)
[2024-06-27] MEDS: DEMADEX 40 MG PO (08:25)
[2024-06-27] MEDS: FOLVITE 1 MG PO (08:25)
[2024-06-27] MEDS: LOPRESSOR 25 MG PO (08:25)
[2024-06-27] MEDS: APRESOLINE 25 MG PO (08:25)
[2024-06-27] MEDS: FARXIGA 10 MG PO (08:25)
[2024-06-27] MEDS: ZYLOPRIM 100 MG PO (08:26)
[2024-06-27] MEDS: LIDOCAINE 4% PATCH 1 PATCH TOPICAL (08:26)
[2024-06-27] MEDS: MIRALAX 17 GRAMS PO (08:27)
[2024-06-27] MEDS: PROTONIX IV 40 MG IV (08:28)
[2024-06-27] MEDS: NSS (PRESERVATIVE FREE) 10 ML IV (08:28)
[2024-06-27] MEDS: VITAMIN B-12 1000 MCG PO (08:32)
--- NOTE | 2024-06-27 09:45 | W.PN.CD ---
Today's Communication / Plan
-
continue pradaxa 150mg bid
no more ASA or Plavix
stable from cardiac perspective
please call us back with additional questions
Impression / Plan
-
IMPRESSION/PLAN: 84M with HFpEF, permanent AF (on dabigatran), OH, lymphedema, COPD and morbid obesity p/w weakness. He was diagnosed with acute HFpEF. He developed anemia.
Primary learning specialist: Dr. Shin
Anemia, unclear etiology
-s/p EGD/colo per GI: angiodysplasia treated with APC
-Plan to permanently stop clopidogrel
Rifaz-bq-uzskhez HFpEF: improved
-Echo 06/19/24: EF 60-65%. No RWMA. Enlarged right ventricular size. Normal RV. Aortic valve is poorly visualized. Likely mild aortic stenosis; peak/mean gradients 13/8 mmHg, calculated BRIONNA 1.8 cm2. Mild tricuspid regurgitation. Estimated pulmonary
artery pressure of 60-65 mmHg.
-Typical 'dry weight' is 280lbs: back to this weight
-back on torsemide 40mg bid, farxiga 10mg daily
Permanent atrial fibrillation
-Rate controlled, continue metoprolol
-Oral anticoagulation: Pradaxa resumed
CAD
-Stable without chest pain
-PCI of the LAD 06/20/2023
-no more plavix or ASA
COPD, acute exacerbation, per primary
CAP, on antibiotics, per primary, negative for influenza and COVID-19
Prediabetes, HbA1c 5.8%, per primary
Lymphedema, chronic
Obesity, BMI 39.9, he would benefit from weight loss
Physical Exam
Vital Signs/Labs
Vital Signs
Temp Pulse Resp BP Pulse Ox
97.9 F 69 17 132/52 96
06/27/24 07:36 06/27/24 07:36 06/27/24 07:36 06/27/24 07:36 06/27/24 07:36
06/26/24 06/27/24 06/28/24
06:59 06:59 06:59
Actual Weight 128.049 kg 127.261 kg
06/27/24 05:22
06/27/24 05:22
APTT 92.6 Sec (23.4-35.0) H 06/26/24 00:16
Magnesium 2.6 mg/dl (1.6-2.3) H 06/23/24 05:38
Triglycerides 42 mg/dl (10-149) 06/20/24 05:35
LDL Cholesterol, Calc 51 mg/dl 06/20/24 05:35
VLDL Cholesterol, Calc 8 mg/dl (0-30) 06/20/24 05:35
HDL Cholesterol 40 mg/dl 06/20/24 05:35
06/19/24
01:28
Tbp-B-Dvmvnyaqepl Pept 3570
Physical Exam
Constitutional: No acute distress and Comfortable
EENT: Moist mucous membranes
Cardiovascular: JVD pressure is normal, Systolic murmur absent, Rhythm/rate is irregular and Pedal edema present
Respiratory: Respiratory effort normal and Lungs clear to auscul.
Neuro/Psych: AO x 3
Data Reviewed
-
Date of Service: June 27, 2024
EKG: Other (Tele: A fib 60s-70s)
Labs: Labs Reviewed by me
[2024-06-27 11:07] VITALS: BP 116/41
--- NOTE | 2024-06-27 11:15 | W.PN.HOSP.TC ---
Addendum entered and electronically signed by Barbara Velazquez MD 06/27/24 15:16:
total DC time 38 min
Original Note:
Today's Communication/Plan
-
DC home with
Assessment / Plan
Assessment / Plan
Mr. Álvarez is an 84-year-old male with a medical history of COPD, HFpEF, permanent A-fib (on Pradaxa), CKD stage IIIb, gout, and hypertension who presented with cough and shortness of breath for 5 days prior to arrival. He also reported
bilateral lower extremity edema. Of note, he was hospitalized in February 2024 at [facility] with lightheadedness and orthostatic hypotension at which time his Farxiga and Aldactone were discontinued and his torsemide dose was decreased to
10 mg daily as needed. At the time of this hospitalization he was found to be approximately 8 kg above his previous discharge weight in February 2024. Chest imaging suspicious for pulmonary edema. On exam he was found to be bronchospastic. Labs
showed significant leukocytosis of 16,000. He was started on steroids, antibiotics, and diuretic. He has been admitted for further evaluation and management of suspected COPD exacerbation, CHF exacerbation, and possible pneumonia.
A/P:
# HFpEF, acute on chronic, NYHA class III
IV Lasix 40 twice daily -> Torsemide 40 mg daily
monitor I's and O's and daily weights
Continue beta-blockade with metoprolol tartrate 25 mg p.o. twice daily
resumed INDUSTRIAL TRUCK OPERATOR hydralazine 25 mg BID
Echocardiogram shows normal systolic function
Continue to monitor
# COPD with acute exacerbation, resolved
resolved wheezing, stopped prednisone 40 mg daily
Nebulizers as needed
# Community-acquired pneumonia
No overt lobar consolidation on chest imaging
Respiratory panel negative for COVID-19 and influenza
Treating empirically with doxycycline for now considering presenting cough and leukocytosis, total 5 days
# Acute hypoxic respiratory insufficiency, resolved
Was placed on 2L NC, weaned to RA, pt not on home O2
# Permanent A-fib
resumed home Pradaxa
Rate control with metoprolol tartrate
# Iron deficiency anemia:
s/p 1 unit PRBC
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
Ok to cont Pradaxa, stop further ASA or Plavix
# ZA on CKD stage IIIb:
Cr 1.7 to 1.3 today
# Hyperglycemia, Improved
Suspect due to steroid (stopped)
Sliding scale insulin as needed
Does not take diabetic medications at home
hemoglobin A1c 5.8%
DVT ppx: INDUSTRIAL TRUCK OPERATOR pradexa
CODE STATUS: DNR
Dispo: HH
DW Card
Anticipated Discharge: Today
Subjective/Interval History
-
Date of Service: June 27, 2024
Objective Data
-
Labs:
Laboratory Results
06/27/24
05:22
WBC 10.2
Hgb 9.2 L
Hct 31.6 L
Plt Count 266
Sodium 138
Potassium 4.0
Chloride 100
Carbon Dioxide 33 H
BUN 34 H
Creatinine 1.3
Glucose 97
Calcium 8.0 L
Vital Signs:
Vital Signs
Temp Pulse Resp BP Pulse Ox
36.9 C 70 17 116/41 95
06/27/24 11:07 06/27/24 11:07 06/27/24 11:07 06/27/24 11:07 06/27/24 11:07
I&O
06/26/24 06/27/24 06/28/24
06:59 06:59 06:59
Intake Total 5430 / 5430 1020 / 1020
Output Total 1750 / 1750 1950 / 1950
Balance 3680 / 3680 -930 / -930
Review of Systems
-
All other systems: Reviewed and negative
Physical Exam
-
General: Well Developed, Well Nourished, Comfortable, Conversant and Morbidly Obese
HEENT: Normocephalic and Atraumatic
Respiratory: Clear to Auscultation and Non Labored Respirations; Negative Wheezes or Accessory Resp Muscle Use
GI: Soft, Nontender, Nondistended and Normal Bowel Sounds
Musculoskeletal: Edema, Right Lower Extrem (chronic) and Edema, Left Lower Extrem (chronic)
Neuro: Awake and Alert
Psych: Calm and Intact Judgement/Insight
Data Reviewed
-
Labs: Labs Reviewed by me
--- NOTE | 2024-06-27 11:21 | CM ---
Addendum entered by Donna Rubio, LARA 06/27/24 12:02:
Spoke with friend Stephan Asuncion . Stephan set up transport home with [facility] [phone] spoke with Chata. Chata said shared ride would be at hospital at 2:00pm [place]ival Ko and take him to his home. Pt to have $5.10 for ride. Pt
informed of above and he said he has some giles on him. receptionist secretary and RN notified of above.
Original Note:
MD entered order for discharge.
Maintained on room air.
Lasix changed to po.
Jael Ptaterson referral accepted in care port.
PLAN Home with Jael PATTERSON fax [phone]
[2024-06-27 11:38] LABS: Glucose - Point of Care 119 mg/dl (70-99)
--- NOTE | 2024-06-27 13:46 | W.DCSUMMARY ---
Discharge Summary
Discharge Data
Date of Admission: 06/19/24
Date of Discharge: 06/27/24
-
Pending Results: No
Hospital Course
Principal Diagnosis:
Acute on chronic heart failure with preserved ejection fraction
Iron deficiency anemia
Acute kidney injury (ZA) on chronic kidney disease (CKD) stage 3
COPD with acute exacerbation, resolved
Presumed community-acquired pneumonia
Chronic Diagnoses:�
Permanent atrial fibrillation, on Pradaxa and metoprolol tartrate
Iron deficiency anemia
Consultations:�
Gastroenterology
Cardiology
Procedures:�
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
Clinical course:�
84-year-old male with past medical history as stated above, who presented with mild cough and shortness of breath.
Problem 1:
Acute on chronic heart failure with preserved ejection fraction.
This was treated with IV Lasix 40 mg twice daily while he was in the hospital, and he was transitioned back to torsemide at 40 mg but increased from daily to twice daily.
He is can continue with prior to admission metoprolol tartrate at 25 mg p.o. twice daily.
His echocardiogram showed normal systolic function.
Problem 2:
COPD with acute exacerbation, resolved.
This was treated with steroid while he was in the hospital, and with resolution of his wheezing, prednisone was discontinued.
Problem 3:
Presumed community-acquired pneumonia.
There was no overt lobar consolidation on chest imaging.
His COVID-19 and influenza tests were negative.
He was empirically covered with doxycycline for 5 days while in the hospital.
Problem 4:
Iron deficiency anemia.
He received 1 unit PRBC transfusion this admission.
He underwent EGD and C scope on 06/26/20.
His EGD was largely unrevealing (showed white nummular lesions in esophageal mucosa- brushings performed; erythematous mucosa in the antrum- biopsied).
His C scope noted AVM without bleeding which was treated.
With resolution of his GI bleed, his prior to admission Pradaxa was resumed which he can continue going forward.
He is home Plavix was stopped.
Problem 5:
ZA on CKD stage IIIb
Patient's creatinine improved from 1.7 on admission to 1.3 on the day of discharge.
As for the rest of his medical problems, they were stable during his hospital stay.
Discharge Plan
-
Patient Disposition: Home with Home Care
Discharge Diagnosis/Procedures: Acute on chronic heart failure with preserved ejection fraction;
COPD with resolved exacerbation;
Possible Community-acquired pneumonia (complete 5 days doxycycline);
Acute blood loss with iron deficiency anemia (status post EGD and colonoscopy on 06/26/2024, noted AVM in the colon).
Acute kidney injury (resolved) on chronic kidney disease;
Permanent atrial fibrillation
Condition: Fair
Diet: As tolerated, Low Cholesterol, Low Fiber, Low Sodium and Restrict fluids to 48 oz
Activity: As tolerated
Driving Restrictions: Not until seen by your Dr
Instructions: *CBC Heart Failure Instructions
Referrals:
Rajiv Pavon MD [Family Provider] - in less than 1 week
Additional Discharge Medication Instructions: Stop Plavix
Prescriptions:
Continued
atorvastatin 40 MG tablet
40 mg PO QPM
dabigatran etexilate [Pradaxa] 150 MG capsule
150 mg PO BID
tamsulosin 0.4 MG capsule
0.4 mg PO HS
finasteride 5 MG tablet
5 mg PO HS
metoprolol tartrate 25 MG tablet
25 mg PO BID
levothyroxine 112 MCG tablet
112 mcg PO DAILY
fluoxetine [Prozac] 40 MG capsule
40 mg PO HS
folic acid 1 mg Tablet
1 mg PO DAILY
hydralazine 25 mg Tablet
25 mg PO TID Qty: 1 0RF
mirtazapine 15 mg Tablet
7.5 mg PO HS
Rx Instructions:
stop 45mg
Anoro Ellipta 62.5-25 mcg/actuation Blister With Device
1 inh INHALATION R DAILY
acetaminophen 325 mg Tablet
650 mg PO Q6HPRN PRN (Reason: mild pain/ fever>100.5F) Qty: 1 0RF
cyanocobalamin (vitamin B-12) 1,000 mcg tablet extended release
1,000 mcg PO DAILY
torsemide 20 mg tablet
40 mg PO BID
albuterol sulfate 2.5 mg /3 mL (0.083 %) solution for nebulization
2.5 mg inhalation QID
allopurinol 100 mg tablet
100 mg PO DAILY
potassium chloride 20 mEq tablet,ER particles/crystals
20 meq PO BID
dapagliflozin propanediol [Farxiga] 10 mg tablet
10 mg PO DAILY
albuterol sulfate [Ventolin HFA] 90 mcg/actuation Hfa Aerosol Inhaler
1 puff INHALATION QID PRN (Reason: wheeze/SOB)
Discontinued
clopidogrel 75 mg tablet
75 mg PO DAILY
Discharge Orders:
Discharge Patient (As Directed); Ordered 06/27/24
Ordered By: Barbara Velazquez
Discharge Date and Time
Discharge Date/Time: 06/27/24 14:32
Print Language: LUXEMBOURGISH
--- NOTE | 2024-06-30 11:41 | W.HF.CON ---
Heart Failure
- LV Function
Left ventricular function study result: LV Ejection fraction >/= 50%
Ejection Fraction Percentage: 60-65
- ARNI
Patient already on ARNI: No
Heart Failure ARNI Not Indicated: LV Ejection Fraction >/= 40%
- ACEI/ARB
Patient already on ACEI/ARB: No
Heart Failure ACEI/ARB Not Indicated: LV Ejection Fraction > 40%
- Beta Billy
Patient already on Evidence Based Beta Billy: No
Heart Failure Evidence Based Beta Billy Not Indicated: LV Ejection Fraction > 40%
- Mineralocorticord Receptor Antagonist
Patient already on MRA: No
Heart Failure MRA Not Indicated: LV Ejection Fraction > 40%
- SGLT-2 Inhibitor
Patient already on SGLT-2 Inhibitor: Yes
- Afib Anticoagulation
Patient already on Anticoagulation for Afib: Yes
- NYHA CHF Classification
NYHA CHF Classification Level: Class III - Symptoms w/ min exertion, interferes w/ nml daily activity (COPD, anemia)
- ACC/AHA Stage
ACC/AHA Stage: Stage C: Symptomatic Heart Failure
== END 2024-06-27 14:32 | disposition home health service (06) | DRG 377 ==
LOC: 3 WEST ACU 05:04
PROVIDERS: Internal Medicine; Internal Medicine Gastroenterology; Student in an Organized Health Care Education/Training Program; ADMITTING PHYSICIAN Hospitalist; ATTENDING PHYSICIAN Internal Medicine; CONSULT PHYSICIAN Internal Medicine Cardiovascular Disease; CONSULT PHYSICIAN Internal Medicine Gastroenterology; EMERGENCY PHYSICIAN Emergency Medicine; FAMILY PHYSICIAN Internal Medicine
PROC: 5A09357 Assistance with Respiratory Ventilation, Less than 24 Consecutive Hours, Continuous Positive Airway Pressure (ICD-10-PCS; 2024-06-19)
PROC: 30233N1 Transfusion of Nonautologous Red Blood Cells into Peripheral Vein, Percutaneous Approach (ICD-10-PCS; 2024-06-20)
PROC: 0D5M8ZZ Destruction of Descending Colon, Via Natural or Artificial Opening Endoscopic (ICD-10-PCS; 2024-06-26)
PROC: 0D5H8ZZ Destruction of Cecum, Via Natural or Artificial Opening Endoscopic (ICD-10-PCS; 2024-06-26)
PROC: 0DB98ZX Excision of Duodenum, Via Natural or Artificial Opening Endoscopic, Diagnostic (ICD-10-PCS; 2024-06-26)
PROC: 0DB78ZX Excision of Stomach, Pylorus, Via Natural or Artificial Opening Endoscopic, Diagnostic (ICD-10-PCS; 2024-06-26)
DX: K55.21 Angiodysplasia of colon with hemorrhage (principal); I50.33 Acute on chronic diastolic (congestive) heart failure; J18.9 Pneumonia, unspecified organism; J96.02 Acute respiratory failure with hypercapnia; J96.01 Acute respiratory failure with hypoxia; I13.0 Hypertensive heart and chronic kidney disease with heart failure and stage 1 through stage 4 chronic kidney disease, or unspecified chronic kidney disease; I48.21 Permanent atrial fibrillation; J44.1 Chronic obstructive pulmonary disease with (acute) exacerbation; Z68.41 Body mass index [BMI] 40.0-44.9, adult; J98.11 Atelectasis; J44.0 Chronic obstructive pulmonary disease with (acute) lower respiratory infection; N17.9 Acute kidney failure, unspecified; D62 Acute posthemorrhagic anemia; D50.9 Iron deficiency anemia, unspecified; M25.561 Pain in right knee; N18.32 Chronic kidney disease, stage 3b; I25.10 Atherosclerotic heart disease of native coronary artery without angina pectoris; E78.00 Pure hypercholesterolemia, unspecified; M10.9 Gout, unspecified; J20.9 Acute bronchitis, unspecified; E66.01 Morbid (severe) obesity due to excess calories; M79.672 Pain in left foot; D72.829 Elevated white blood cell count, unspecified; R53.1 Weakness; M51.369 Other intervertebral disc degeneration, lumbar region without mention of lumbar back pain or lower extremity pain; N40.0 Benign prostatic hyperplasia without lower urinary tract symptoms; K22.89 Other specified disease of esophagus; K44.9 Diaphragmatic hernia without obstruction or gangrene; K31.89 Other diseases of stomach and duodenum; I89.0 Lymphedema, not elsewhere classified; K64.8 Other hemorrhoids; D12.0 Benign neoplasm of cecum; K57.31 Diverticulosis of large intestine without perforation or abscess with bleeding; K55.20 Angiodysplasia of colon without hemorrhage; R73.9 Hyperglycemia, unspecified; T38.0X5A Adverse effect of glucocorticoids and synthetic analogues, initial encounter; Y92.9 Unspecified place or not applicable; Z66 Do not resuscitate; Z87.891 Personal history of nicotine dependence; Z98.1 Arthrodesis status; Z86.73 Personal history of transient ischemic attack (TIA), and cerebral infarction without residual deficits; Z11.52 Encounter for screening for COVID-19; Z79.890 Hormone replacement therapy; Z79.51 Long term (current) use of inhaled steroids; Z79.52 Long term (current) use of systemic steroids; Z95.5 Presence of coronary angioplasty implant and graft; Z79.01 Long term (current) use of anticoagulants
CPT/HCPCS: 88305; 71046; 71250; 73564; 73630; 80048; 80053; 80061; 82375; 82550; 82607; 82746; 82805; 82962; 83036; 83540; 83550; 83605; 83735; 83880; 84100; 84443; 84484; 85025; 85027; 85730; 86850; 86900; 86901; 86920; 87040; 87220; 87502; 87811; 88342; 93005; 93306; 94640; 97116; 97162; 97166; 97530; 97535; 99285; P9016; Q9950

== ENCOUNTER 2024-06-30 10:00 | Emergency (ER) | payer MEDICARE, SELFPAY ==
[2024-06-30] VITALS (10 sets, daily range): BP systolic 110–165; BP diastolic 60–78; PULSE 71; O2SAT 95; BMI 41.0
[2024-06-30 10:20] LABS: % Basophils 0.1 % (0-2); % Eosinophils 2.9 % (0-6); % Immature Granulocytes 0.7 % (0-0.5); % Lymphocytes 10.4 % (20.5-51.1); % Monocytes 9.6 % (1.7-9.3); % Neutrophils 76.3 % (42.2-75.2); Absolute Eosinophils 0.2 10^3/uL (0-0.7); Absolute Immature Granulocytes 0.1 10^3/uL (0-0.05); Absolute Lymphocytes 0.8 10^3/uL (1.2-3.4); Absolute Monocytes 0.7 10^3/uL (0.1-0.6); Absolute Neutrophils 5.8 10^3/uL (1.4-6.5); Hematocrit 32.5 % (39.0-52.0); Hemoglobin 9.5 g/dL (13.0-18.0); Mean Corp Hgb Conc. 29.2 g/dL (33.0-37.0); Mean Corpuscular Hgb 23.8 pg (27.0-31.0); Mean Corpuscular Volume 81.5 fL (80.0-94.0); Mean Platelet Volume 9.4 fL (7.4-10.4); Nucleated Red Blood Cells % 0 % (-); Platelet Count 216 10^3/uL (130-400); Red Blood Cell Count 3.99 10^6/uL (4.70-6.10); White Blood Cell Count 7.6 10^3/uL (4.8-10.8)
--- NOTE | 2024-06-30 11:25 | ED.GENMED ---
History of Present Illness
General
Chief Complaint: Weakness
Time Seen by Provider: 06/30/24 10:10
History of Present Illness
History of Present Illness:
84-year-old male presents to the emergency department for evaluation of generalized weakness and failure to thrive. States that since he was discharged in this hospital 3 days ago he is essentially been able to get off the couch. He has been using
urine hours and soiling himself frequently. Crawling around his house to get food. He does not feel safe at home. He indicated suicidal thoughts to nurse during triage but denies any active plan.
Past History
Past History
ED Past Medical History: Arrthythmia (Paroxysmal atrial fibrillation), CAD, CHF, COPD, CVA, HTN, Hypercholesterolemia and Other (CKD)
ED Past Surgical History: Cardiac and Orthopedic (Resection of a thoracic spine lesion and spinal fusion)
Social History
Tobacco: Former smoker
Alcohol: None
Drug: None
Personal:
Living: alone
Employment: Retired
Family History
Family History: Other (Noncontributory)
Review of Systems
Review of Systems
Allergies reviewed?: Yes
All Other Systems: ROS reviewed and negative except as documented in HPI and ROS
Phy Exam
Physical Exam
Physical Exam:
GEN: Disheveled but in no distress, morbidly obese
HEENT: Oral mucosa moist, no scleral icterus
Cardiac: Regular rate, irregular rhythm
Lung: No respiratory distress, no tachypnea, lungs clear to auscultation
MSK: Massive edema bilateral lower extremities reportedly chronic
Skin: Good color, no pallor or jaundice, no rashes
Neuro: AO x3, moves all extremities freely
Psych: Disheveled and malodorous, calm and cooperative
Course
Orders/Labs/Results
Orders:
Orders
06/30/24 10:07
Electrocardiogram (*1) Urgent
Reason for Study: Atrial Fibrillation
06/30/24 10:08
EKG- Treatment ONCE
06/30/24 10:10
Complete Blood Count/With Diff Urgent
06/30/24 10:12
Crisis Consult Urgent
Reason for Consult: depression
06/30/24 10:52
Add On- LAB Urgent
Tests Added?: CPK
06/30/24 11:18
Comprehensive Metabolic Panel Urgent
Creatine Phosphokinase Urgent
06/30/24 12:05
Allopurinol [Zyloprim] 100 mg PO NOW STA
06/30/24 12:12
Case Management Consult ONCE
Case Management Consult: Prison Placement
Pt Eval And Treat Urgent
Treatment: failure to thrive/weakness
Activity Level: As Tolerated
06/30/24 13:22
COVID-19 Antigen Urgent
Source: Nasal Swab
06/30/24 15:21
Urinalysis Reflex To Culture Urgent
Date Specimen was Collected: 06/30/24
Time Specimen was Collected: 10:07
Abnormal Lab Results
06/30/24 06/30/24 06/30/24
10:10 11:18 15:21
RBC 3.99 L 10^6/uL
(4.70-6.10)
Hgb 9.5 L g/dL
(13.0-18.0)
Hct 32.5 L %
(39.0-52.0)
MCH 23.8 L pg
(27.0-31.0)
MCHC 29.2 L g/dL
(33.0-37.0)
RDW 19.0 H %
(11.5-14.5)
Abs Immat Gran (auto) 0.1 H 10^3/uL
(0-0.05)
Absolute Lymphs (auto) 0.8 L 10^3/uL
(1.2-3.4)
Absolute Monos (auto) 0.7 H 10^3/uL
(0.1-0.6)
Immature Gran % 0.7 H %
(0-0.5)
Neutrophils % 76.3 H %
(42.2-75.2)
Lymphocytes % 10.4 L %
(20.5-51.1)
Monocytes % 9.6 H %
(1.7-9.3)
BUN 34 H mg/dl
(9-20)
Creatinine 1.4 H mg/dL
(0.7-1.3)
Calcium 7.6 L mg/dl
(8.4-10.2)
Total Protein 6.0 L g/dl
(6.3-8.2)
Albumin 3.3 L g/dl
(3.5-5.0)
Urine Glucose 1+ A
(Negative)
06/30/24 10:10
06/30/24 11:18
Vital Signs
Initial and Last Documented VS:
Initial Vital Signs
Temp Pulse Resp BP Pulse Ox
98.7 F 63 18 132/76 95
06/30/24 10:08 06/30/24 10:08 06/30/24 10:08 06/30/24 10:08 06/30/24 10:08
Last Documented Vital Signs
Temp Pulse Resp BP Pulse Ox
98.7 F 70 26 142/73 96
06/30/24 10:08 06/30/24 16:30 06/30/24 16:30 06/30/24 17:05 06/30/24 17:05
MDM/Problems Addressed
MDM/Problems Addressed:
Patient appears to be medically stable however clearly functionally deconditioned. Evaluated by PT and case management and will place the patient in [facility] facility at [facility]
*Critical Care Note
Total Time (30-74mins, 75-104mins- exclusive of procedures): Not Applicable
ED Attending Note
-
Portions of this chart may have been created with voice recognition software.� Occasional wrong word or��sound alike� substitutions may have occurred due to the inherent limitations of voice recognition software.
Discharge Plan
Departure
Patient Disposition: Prison/SNF
Date of Disposition: 06/30/24
Time of Disposition: 13:32
Discharge Problem:
Adult failure to thrive
Prescriptions:
No Action
atorvastatin 40 MG tablet
40 mg PO QPM
dabigatran etexilate [Pradaxa] 150 MG capsule
150 mg PO BID
tamsulosin 0.4 MG capsule
0.4 mg PO HS
finasteride 5 MG tablet
5 mg PO HS
metoprolol tartrate 25 MG tablet
25 mg PO BID
levothyroxine 112 MCG tablet
112 mcg PO DAILY
fluoxetine [Prozac] 40 MG capsule
40 mg PO HS
folic acid 1 mg Tablet
1 mg PO DAILY
hydralazine 25 mg Tablet
25 mg PO TID Qty: 1 0RF
mirtazapine 15 mg Tablet
7.5 mg PO HS
Rx Instructions:
stop 45mg
Anoro Ellipta 62.5-25 mcg/actuation Blister With Device
1 inh INHALATION R DAILY
acetaminophen 325 mg Tablet
650 mg PO Q6HPRN PRN (Reason: mild pain/ fever>100.5F) Qty: 1 0RF
cyanocobalamin (vitamin B-12) 1,000 mcg tablet extended release
1,000 mcg PO DAILY
torsemide 20 mg tablet
40 mg PO BID
albuterol sulfate 2.5 mg /3 mL (0.083 %) solution for nebulization
2.5 mg inhalation QID
allopurinol 100 mg tablet
100 mg PO DAILY
potassium chloride 20 mEq tablet,ER particles/crystals
20 meq PO BID
dapagliflozin propanediol [Farxiga] 10 mg tablet
10 mg PO DAILY
albuterol sulfate [Ventolin HFA] 90 mcg/actuation Hfa Aerosol Inhaler
1 puff INHALATION QID PRN (Reason: wheeze/SOB)
Referrals:
Rajiv Pavon MD [Family Provider] -
Interventions
Interventions:
*Risk Screen - Suicide Last Done: 06/30/24 10:08
*General Assessment Last Done: 06/30/24 10:08
*Neglect/Abuse Screening Last Done: 06/30/24 10:08
*ED COVID-19 Vaccine History Last Done: 06/30/24 11:11
*Nursing Disposition Last Done: 06/30/24 17:23
ED- Cardiac Assessment Last Done: 06/30/24 10:17
ED- Neurological Assessment Last Done: 06/30/24 10:17
ED- Pulmonary Assessment Last Done: 06/30/24 10:17
Discharge Date and Time
Discharge Date/Time: 06/30/24 17:26
Print Language: WALLISIAN
[2024-06-30 12:03] LABS: ALT (SGPT) 20 U/L (0-50); AST (SGOT) 20 U/L (17-59); Albumin 3.3 g/dl (3.5-5.0); Alkaline Phosphatase 71 U/L (38-126); Blood Urea Nitrogen 34 mg/dl (9-20); Calcium 7.6 mg/dl (8.4-10.2); Carbon Dioxide 30 mmol/L (22-30); Chloride 102 mmol/L (98-107); Creatine Phosphokinase 61 U/L (55-170); Estimated Creatinine Clearance 53 ml/min; Glucose 99 mg/dl (70-99); Potassium 3.5 mmol/L (3.5-5.1); Sodium 139 mmol/L (135-145); Total Bilirubin 0.7 mg/dl (0.2-1.3); eGFR 49.56
[2024-06-30] MEDS: ZYLOPRIM 100 MG PO (12:10)
--- NOTE | 2024-06-30 13:26 | CM ---
CM following re: discharge planning.
CM consulted to assist the pt with placement to a SNF due to pt feels unsafe at discharge.
Reviewed pt's chart, met with pt.
Pt is an 84 year old male, arrived to ED with concerns being unable to care at home and to have unsafe situation. Pt lives alone 2SH, 2 steps to enter, has supportive friend. Pt has caregiver services 3-4 hours 3 times per week [facility]. Pt stated he
feels unsafe at home and he would like to go to [facility] for a short term rehab.
Pt has required Medicare 3 days stay during last admissions from 06/19/24 till 06/27/24.
CM received a phone call from [facility] liaison and she stated that pt was discharged from on 06/27/24 and they found pt being unsafe at home and pt went to ED.
PT evaluations noted - SNF level of care recommended. Pt is aware, requested [facility].
A referral to [facility] made, pt's clinical with a copy of Medicare card faxed to [facility], spoke to social service director, pt is accepted for admission and after 4:30 p.m. clam picker time requested.
COVID 19 test requested. is aware.
[facility] nursing report: [phone]
Discharge instructions fax: [phone] or [phone]
to arrange ambulance transport with clam picker 4:30 p.m. or later. PMNC completed and left with .
D/C plan: [facility]
[2024-06-30 13:55] LABS: COVID-19 Antigen Negative (Negative)
[2024-06-30 15:29] LABS: Urine Albumin Negative (Neg - Trace); Urine Bilirubin Negative (Negative); Urine Character Clear (Clear); Urine Color Yellow; Urine Glucose 1+ (Negative); Urine Ketone Negative (Negative); Urine Leukocyte Negative (Negative); Urine Nitrite Negative (Negative); Urine Occult Blood Negative (Negative); Urine Urobilinogen Negative (Neg - 1+)
== END 2024-06-30 17:26 ==
LOC: EMR 10:00
PROVIDERS: Physician Assistant; EMERGENCY PHYSICIAN Emergency Medicine; FAMILY PHYSICIAN Internal Medicine
DX: R62.7 Adult failure to thrive (principal); Z11.52 Encounter for screening for COVID-19; Z87.891 Personal history of nicotine dependence
CPT/HCPCS: 99285; 80053; 81003; 82550; 85025; 87811; 93005

== ENCOUNTER 2024-09-08 04:12 | Inpatient (IN) | payer MEDICARE, SELFPAY ==
[2024-09-08] VITALS (18 sets, daily range): BP systolic 114–167; BP diastolic 34–87; BMI 41.8; BMI 41.0
--- NOTE | 2024-09-08 01:40 | ED.GENMED ---
History of Present Illness
General
Chief Complaint: Cardiac Symptoms
Source: patient
Exam Limitations: none
Time Seen by Provider: 09/08/24 01:22
Nursing documentation reviewed up to this point in time: agreed with
History of Present Illness
History of Present Illness:
84-year-old male with past medical history of A-fib on Pradaxa, CHF on furosemide, hypertension, early COPD, presents emergency department today with concerns of shortness of breath and bilateral lower extremity edema for the past 4 days. Patient
is a patient of Dr. Shin and was instructed to take and monitor his weight daily. Patient notes a 10 pound weight gain in the past 4 days. He also reports that you can barely ambulate without becoming very short of breath. He also notes
that he has been wheezing persistently he has been using DuoNeb treatments at home without relief. He also notes that his legs have started to swell and he reports that he has the baseline mild level of swelling that he has never gotten so swollen
to this point to the point where he has trouble putting on his shoes on his pants. Patient denies any fevers or chills, coughing, upper respiratory symptoms, abdominal pain, nausea, vomiting. Patient denies any chest pain.
Past History
Past History
ED Past Medical History: Arrthythmia (Paroxysmal atrial fibrillation), CAD, CHF, COPD, CVA, HTN, Hypercholesterolemia and Other (CKD)
ED Past Surgical History: Cardiac and Orthopedic (Resection of a thoracic spine lesion and spinal fusion)
Social History
Tobacco: Former smoker
Alcohol: None
Drug: None
Personal:
Living: alone
Employment: Retired
Family History
Family History: Other (Noncontributory)
Review of Systems
Review of Systems
All Other Systems: ROS reviewed and negative except as documented in HPI and ROS
Phy Exam
Physical Exam
Physical Exam:
General: Patient is well appearing and in no acute distress; non-toxic
Skin: Warm and dry, no rashes or lesions
Head: Normocephalic, atraumatic
Eyes: Sclera non-icteric. EOMs intact.
Cardiac: Irregularly irregular rhythm, no murmurs
Peripheral Vascular: Bilateral lower extremity edema
Pulm: Tachypnea noted with scattered wheezing, no rhonchi
Abdomen: No abdominal tenderness to palpation
Neuro: CN II-XII intact, no focal neurologic deficits.
Psychiatric: Appropriate mood and affect.
Sepsis
Sepsis Screening
Sepsis Assessment: Sepsis Ruled Out
Sepsis Screen
Sepsis Screen: Sepsis Ruled Out
Date: 09/08/24
Time: 05:59
Course
Orders/Labs/Results
Orders:
Orders
09/08/24 01:13
Electrocardiogram (*1) Urgent
Reason for Study: Shortness of Breath
09/08/24 01:14
EKG- Treatment ONCE
09/08/24 01:25
BNP [NT-proBNP] Urgent
Complete Blood Count/With Diff Urgent
Comprehensive Metabolic Panel Urgent
Troponin I Urgent
09/08/24 01:36
CR Chest - 2 Views Urgent
Comment:
Reason For Exam: shortness of breath
09/08/24 02:32
Furosemide [Lasix] 40 mg IV NOW STA
09/08/24 02:57
Furosemide [Lasix] 20 mg IV NOW STA
09/08/24 03:47
Admit/Transfer Patient As Directed
Co-Sign Provider:
Level of Care: Inpatient admission
Assign to:: Telemetry
Physician / Group: Gabino
Diagnosis: CHF
Reason for Telemetry: Acute Heart Failure
Date to Stop Telemetry: 09/11/24
Time to Stop Telemetry: 11:00
Reason for Hospitalization: CHF
Expected length of stay greater than two midnights?: Yes
ELOS- Estimated Length of Stay in days: 3
I certify the patient meets the requirements for IP care: Yes
PRN Pain Medication Management As Directed
May give lesser potent ordered pain med per pt: Yes
preference::
Protocol:: Medication orders for pain may be administered in a
manner that supports deferring to patient preference
when the pt is:
- Requesting an ordered lesser potent pain medication.
Least to most potent pain medications are defined
as: acetaminophen < NSAID < tramadol < opioids
(morphine, oxycodone, hydromorphone).
- Requesting a lesser dose of the same medication IF
ORDERED.
- Requesting a less intrusive route of administration
if both routes are prescribed by the provider (PO <
IV).
09/08/24 03:49
Code Status As Directed
Resuscitation Status: Do not resuscitate
Reached after discussion with pt or family/Healthcare POA: Yes
DNR Bracelet Application ONCE
09/08/24 04:17
Acetaminophen [Tylenol] 650 mg PO Q4HPRN PRN
Albuterol Nebs [Ventolin Nebules] 2.5 mg INH R Q4HPRN PRN
Dextrose 50%-Water [Dextrose 50% Syringe] 12.5 grams IV [id number] PRN
Glucagon [GlucaGen] 1 mg IM PRN PRN
MethylPREDNISolone PF [Solu-Medrol Pf] 40 mg IV Q12@0600,1800
09/08/24 04:17
Activity As Directed
Activity Level: Ambulate
With Assistance
Bedside Glucose Monitoring As Directed
Frequency: AC&HS
Additional Instructions:: Change to q6h if pt on TPN, tube feeding or not eating
Bladder Scan As Directed
Follow Bladder Retention/Intermittent Cath Algorithm?: Yes
PRN if no void in __ hours: 6
Frequency: Per Retention Algorithm
If Bladder Scan Result >: 400
then:: Straight cath
EKG with chest pain [ECG as needed] As Directed
ECG as needed for:: Chest Pain
I/O [Intake/ Output] As Directed
Frequency: Per unit guidelines
Pneumatic Compression Sleeves As Directed
Type: Knee high
Straight Cath As Directed
Frequency: Per Retention Algorithm
Additional Instructions: straight cath as needed per acute urinary retention algorithm for 24 hrs
Additional Instructions: for bladder scan greater than 400 mL
Vital Signs As Directed
Frequency: Per unit guidelines
Weight As Directed
Frequency: Daily
Oxygen Therapy [O2 Therapy] [RESP] Routine
Titrate/Wean O2 to maintain O2 sat greater than (%): 94
DX Deep Vein Thrombosis Video Routine
09/08/24 05:00
Flush (0.9% Sodium Chloride) [Flush (Nss)] See Dose Instructions IV PER PROTOCOL
09/08/24 05:44
Basic Metabolic Panel IN AM
Complete Blood Count/No Diff IN AM
Glycohemoglobin (HgbA1c) IN AM
Troponin I Q6H
09/08/24 06:00
EKG [Electrocardiogram (*1)] IN AM
Reason for Study: Chest Pain
Regular
Fluid Restriction: 1200 mL/day (40 oz)
09/08/24 07:30
Insulin Aspart Corrective Low [Novolog Flexpen-Low Resistance] See Protocol SC AC
09/08/24 08:00
Allopurinol [Zyloprim] 100 mg PO DAILY
Cyanocobalamin [Vitamin B-12] 1,000 mcg PO DAILY
Dapagliflozin [Farxiga] 10 mg PO DAILY
FOLic ACID [Folvite] 1 mg PO DAILY
Furosemide [Lasix] 40 mg IV BID AT 0800,1600
HydrALAZINE [Apresoline] 25 mg PO TID
Ipratropium/Albuterol Sulfate [Duoneb] 3 ml INH R QID
Metoprolol [Lopressor] 25 mg PO BID
Potassium Chloride [KCl] 20 meq PO BID
Tiotropium [place] 2.5 Mcg [Spiriva Respimat 2.5 Mcg] 2 puff INH R DAILY
09/08/24 10:17
Troponin I Q6H
09/08/24 14:00
Ferric Gluconate [Ferrlecit] 125 mg 0.9% Sodium Chloride 100 ml [Nss] 100 ml IV DAILY@1400
09/08/24 16:17
Troponin I Q6H
09/08/24 18:00
Atorvastatin [Lipitor] 40 mg PO QPM
09/08/24 22:00
Finasteride [Proscar] 5 mg PO HS
Fluoxetine HCl [Prozac] 40 mg PO HS
Mirtazapine [Remeron] 7.5 mg PO HS
Tamsulosin [Flomax] 0.4 mg PO HS
09/11/24 11:00
DC Protocol for Telemetry ONCE
Abnormal Lab Results
09/08/24
01:25
WBC 13.2 H 10^3/uL
(4.8-10.8)
RBC 3.41 L 10^6/uL
(4.70-6.10)
Hgb 7.8 L g/dL
(13.0-18.0)
Hct 26.6 L %
(39.0-52.0)
MCV 78.0 L fL
(80.0-94.0)
MCH 22.9 L pg
(27.0-31.0)
MCHC 29.3 L g/dL
(33.0-37.0)
RDW 20.4 H %
(11.5-14.5)
Abs Immat Gran (auto) 0.1 H 10^3/uL
(0-0.05)
Absolute Neuts (auto) 11.0 H 10^3/uL
(1.4-6.5)
Absolute Lymphs (auto) 1.0 L 10^3/uL
(1.2-3.4)
Absolute Monos (auto) 0.9 H 10^3/uL
(0.1-0.6)
Immature Gran % 0.7 H %
(0-0.5)
Neutrophils % 82.8 H %
(42.2-75.2)
Lymphocytes % 7.6 L %
(20.5-51.1)
Sodium 147 H mmol/L
(135-145)
Chloride 112 H mmol/L
(98-107)
BUN 54 H mg/dl
(9-20)
Creatinine 1.9 H mg/dL
(0.7-1.3)
Calcium 7.9 L mg/dl
(8.4-10.2)
AST 16 L U/L
(17-59)
Total Protein 6.0 L g/dl
(6.3-8.2)
Albumin 3.4 L g/dl
(3.5-5.0)
09/08/24 01:25
09/08/24 01:25
Vital Signs
Initial and Last Documented VS:
Initial Vital Signs
Pulse Resp
65 14
09/08/24 01:24 09/08/24 01:24
Last Documented Vital Signs
Temp Pulse Resp BP Pulse Ox
98.5 F 59 21 155/66 96
09/08/24 01:28 09/08/24 04:00 09/08/24 04:00 09/08/24 04:00 09/08/24 04:00
MDM/Problems Addressed
Differential Diagnosis Includes:
Differentials include CHF exacerbation, COPD exacerbation, pneumonia, ACS
MDM/Problems Addressed:
84-year-old male presents the emergency department today with concerns of bilateral lower extreme edema and shortness of breath. He has a history of congestive heart failure and does take furosemide 20 mg once daily. He follows with
[facility]. Patient notes a 10 pound weight gain within the last 4 days He has difficulty ambulating. On physical exam he is generally nontoxic-appearing, does appear chronically ill, scattered wheezing and tachypnea noted bilateral lower
extremity edema, he does have significant hypoxia with ambulation and with standing or position changes. Will initiate IV diuresis and refer for admission.
*Pulse Oximetry
Patient hypoxic: yes
*EKG
Interpreted by ED Provider?: Yes
EKG Intrepretation Date: 09/08/24
Interpretation: abnormal
Heart Rate: 76
Rhythm: a-fib
*Critical Care Note
Total Time (30-74mins, 75-104mins- exclusive of procedures): Not Applicable
ED Attending Note
-
Portions of this chart may have been created with voice recognition software.� Occasional wrong word or��sound alike� substitutions may have occurred due to the inherent limitations of voice recognition software.
Discharge Plan
Departure
Patient Disposition: Admit
Date of Disposition: 09/08/24
Time of Disposition: 03:18
Admit to: Telemetry
Presentation/result/management discussed w/ accepting MD/DO: Hospitalist
Condition: Fair
Discharge Problem:
Acute congestive heart failure
Interventions
Interventions:
*Risk Screen - Suicide Last Done: 09/08/24 01:18
*General Assessment Last Done: 09/08/24 01:24
*Neglect/Abuse Screening Last Done: 09/08/24 01:18
*ED- Fall Risk Assessment Last Done: 09/08/24 01:24
*ED COVID-19 Vaccine History Last Done: 09/08/24 01:24
ED- Pulmonary Assessment Last Done: 09/08/24 05:08
ED- Cardiac Assessment Last Done: 09/08/24 02:30
[2024-09-08 01:53] LABS: % Basophils 0.2 % (0-2); % Eosinophils 1.7 % (0-6); % Immature Granulocytes 0.7 % (0-0.5); % Lymphocytes 7.6 % (20.5-51.1); % Neutrophils 82.8 % (42.2-75.2); Absolute Eosinophils 0.2 10^3/uL (0-0.7); Absolute Immature Granulocytes 0.1 10^3/uL (0-0.05); Absolute Monocytes 0.9 10^3/uL (0.1-0.6); Hematocrit 26.6 % (39.0-52.0); Hemoglobin 7.8 g/dL (13.0-18.0); Mean Corp Hgb Conc. 29.3 g/dL (33.0-37.0); Mean Corpuscular Hgb 22.9 pg (27.0-31.0); Mean Platelet Volume 8.9 fL (7.4-10.4); Nucleated Red Blood Cells % 0.2 % (-); Platelet Count 288 10^3/uL (130-400); Red Blood Cell Count 3.41 10^6/uL (4.70-6.10); Red Cell Dist. Width 20.4 % (11.5-14.5); White Blood Cell Count 13.2 10^3/uL (4.8-10.8)
[2024-09-08 02:26] LABS: NT-proBNP 5150 pg/ml; Troponin I < 0.012 ng/ml
[2024-09-08 02:39] LABS: ALT (SGPT) 12 U/L (0-50); AST (SGOT) 16 U/L (17-59); Albumin 3.4 g/dl (3.5-5.0); Alkaline Phosphatase 90 U/L (38-126); Blood Urea Nitrogen 54 mg/dl (9-20); Calcium 7.9 mg/dl (8.4-10.2); Carbon Dioxide 25 mmol/L (22-30); Chloride 112 mmol/L (98-107); Estimated Creatinine Clearance 40 ml/min; Glucose 99 mg/dl (70-99); Potassium 4.2 mmol/L (3.5-5.1); Sodium 147 mmol/L (135-145); Total Bilirubin 0.5 mg/dl (0.2-1.3); eGFR 34.35
[2024-09-08] MEDS: LASIX 20 MG IV (03:06)
--- NOTE | 2024-09-08 03:42 | EDRN ---
Assisted patient with urinal and now Dr. Lloyd at bedside working on admission
--- NOTE | 2024-09-08 03:51 | HPS.HSE ---
Family Physician
-
Family Physician: Rajiv Pavon
Chief Complaint
-
SOB, Edema, Weight Gain
History of Present Illness
Patient is an 84y M with PMH significant for COPD, CHF and A-Fib who presents to ED complaining of SOB, weight gain and increased edema. Patient states that he weighs himself daily at home. He reports weight gain of 12 lbs in the past week. He
notes dyspnea with even minimal exertion and significant increase in LE swelling. He denies any chest pain, palpitations, fevers / chills, cough, etc. Patient notes that he has been compliant with medications including torsemide - which he takes
40mg BID. He has not appreciate any significant change in urinary frequency / output.
Patient does not on ROS that he has seen BRB on the toilet paper after a BM on multiple occasions.
Medical History
Past Medical History
Past Medical History: Reports Other
Additional Past Medical History:
Hypertension
Chronic HFpEF
COPD
Permanent Atrial Fibrillation
Lumbar DDD
ASCVD
Gout
Morbid Obesity
Past Surgical History: Reports Other
Additional Past Surgical History:
PTCA with Stent
Lumbar laminectomy
LINQ Implant
Social History
Tobacco: Former Smoker (Quit smoking 25 years ago. > 40 pack years total use.)
Alcohol: None
Drug: None
Family History
Family History: Not pertinent
Allergies / Home Medications
Allergies reflects when Allergies were last updated in [employer].
Home Medications with original date entered in [employer]
Allergy/Medication List:
Allergies
Allergy/AdvReac Type Severity Reaction Status Date / Time
No Known Allergies Allergy Verified 09/08/24 01:20
Home Medications
atorvastatin 40 mg tablet 40 mg PO QPM High cholesterol 01/19/20
dabigatran etexilate 150 mg capsule (Pradaxa) 150 mg PO BID Blood clot prevention/tx 01/19/20
finasteride 5 mg tablet 5 mg PO HS Urinary issue 04/07/20
metoprolol tartrate 25 mg tablet 25 mg PO BID Blood pressure 04/07/20
tamsulosin 0.4 mg capsule 0.4 mg PO HS Urinary issue 04/07/20
fluoxetine 40 mg capsule (Prozac) 40 mg PO HS depression/anxiety 11/02/21
folic acid 1 mg tablet 1 mg PO DAILY Supplement 06/19/23
hydralazine 25 mg tablet 25 mg PO TID #1 tab 06/25/23
mirtazapine 15 mg tablet 7.5 mg PO HS sleep 08/28/23
umeclidinium 62.5 mcg-vilanterol 25 mcg/actuation powdr for inhalation (Anoro Ellipta) 1 inh inhalation R DAILY Lung/Breathing Issues 12/10/23
albuterol sulfate 2.5 mg/3 mL (0.083 %) solution for nebulization 2.5 mg inhalation QID Lung/Breathing Issues 06/19/24
albuterol sulfate 90 mcg/actuation aerosol inhaler (Ventolin HFA) 1 puff inhalation QID PRN wheeze/SOB 06/19/24
allopurinol 100 mg tablet 100 mg PO DAILY gout prophylaxis 06/19/24
cyanocobalamin (vitamin B-12) 1,000 mcg tablet,extended release 1,000 mcg PO DAILY Supplement 06/19/24
dapagliflozin propanediol 10 mg tablet (Farxiga) 10 mg PO DAILY Heart Failure 06/19/24
potassium chloride 20 mEq tablet,extended release(part/cryst) 20 meq PO BID Electrolyte Repletion 06/19/24
torsemide 20 mg tablet 40 mg PO BID Fluid Retention/Swelling 06/19/24
Review of Systems
-
History Source: Patient
A 12 point ROS was completed and negative except as noted: Yes
Constitutional: Reports Weight Gain; Denies Fever or Chills
EENT: Denies Sore Throat
Respiratory: Reports Trouble Breathing; Denies Cough or Hemoptysis
Cardiac: Denies Chest Pain, Diaphoresis or Palpitations
Abdomen/GI: Reports Bloody Stools; Denies Abdominal Pain, Nausea, Vomiting or Diarrhea
: Denies Dysuria, Frequency or Flank Pain
Musculoskeletal: Reports Edema; Denies Joint Pain
Neurological: Denies Dizzy or Headache
Psych: Denies Depression or Anxiety
Physical Exam
Vital Signs
Vital Signs
Temp Pulse Resp BP Pulse Ox
98.5 F 65 24 141/72 94
09/08/24 01:28 09/08/24 03:06 09/08/24 03:00 09/08/24 03:06 09/08/24 03:00
Physical Exam
General: Other (84y M in mild distress due to dyspnea.)
HEENT: Moist mucous membranes, PERRLA and Other (Thick neck.)
Respiratory: Other (Few bibasilar rales. Diffuse expiratory wheezing.)
Cardiac: S1/S2, Irregular Rhythm and Murmur (II/ VIMAL)
GI: Non Tender, Non Distended, Normal Bowel Sounds and Other (Obese.)
Musculoskeletal: No Clubbing, No Cyanosis and Other (4+ pitting edema b/l LEs. Some clear oozing from lateral aspect of the LLE.)
Neuro: AO x 3
Laboratory Results
-
09/08/24 01:25
09/08/24 01:25
Laboratory Results
Total Bilirubin 0.5 mg/dl (0.2-1.3) 09/08/24 01:25
AST 16 U/L (17-59) L 09/08/24 01:25
ALT 12 U/L (0-50) 09/08/24 01:25
Alkaline Phosphatase 90 U/L (38-126) 09/08/24 01:25
Troponin I < 0.012 ng/ml 09/08/24 01:25
Impression/Plan
-
A/P: Patient is an 84y M with PMH significant for CHF, COPD and A-Fib who presents to ED complaining of SOB, weight gain and edema.
Acute on Chronic HFpEF
- Admit for further evaluation and treatment.
- Patient notes 12 lbs weight gain, dyspnea with activity and significant increase in LE edema.
- Change to IV Lasix BID and follow for effective diuresis.
- Monitor I/Os, daily weights, etc.
- Echo done 06/2024 with normal LVEF, mild and mild TR. Dilated RV with normal appearing function.
- Likely contributed to by worsening anemia, COPD / cor pulmonale, etc.
Iron Deficiency Anemia
Colonic Angiodysplastic Lesions
- Patient with decrease in Hgb from prior baseline.
- Previous iron studies indicated iron deficiency.
- Endoscopic examinations done in June included colonoscopy with multiple angiodysplastic lesions seen. No active bleeding at that time.
- Hold Pradaxa again.
- Iron replacement / Ferrlecit.
- Follow for improvement in anemia.
- Consider transfusion if Hgb decreases or dyspnea does not improve.
COPD
- Diffuse wheezing noted on exam which could be cardiac in origin, but suspect COPD flare / exacerbation.
- COPD likely contributing to degree of right-sided HF as noted above.
- Short course of IV steroids and then oral taper.
- Nebs ATC and PRN.
- Follow for clinical improvement.
ZA on CKD III
- SCr = 1.9 compared to prior baseline of around 1.3.
- Likely secondary to CHF. Follow for improvement with diuresis.
Permanent Atrial Fibrillation
- Stable. Holding Pradaxa acutely as noted above.
- Continue metoprolol.
ASCVD
- Stable. No complaints of chest pain. No acute ischemia appreciated on EKG.
- Continue current CV med regimen.
Benign Hypertension
- Stable. Continue usual home meds with holding parameters.
Gout
- Stable. Continue allopurinol.
BPH
- Stable. Continue current medications.
- Bladder scan protocol.
Morbid Obesity
- Affects all aspects of care.
- Encourage healthy diet and increased activity with goal of weight loss.
DVT Prophylaxis: SCDs while Pradaxa on hold.
Code Status: DNR
[2024-09-08] MEDS: SOLU-MEDROL PF 40 MG IV ×2 (05:05→17:30)
--- NOTE | 2024-09-08 05:08 | EDRN ---
Patient called me into the stating he choked on his ice cube and peed his pants, ice chips removed from bedside, patients underwear removed, placed 2L o2 on patient for comfort, patient's o2 sats are stable, will continue to monitor
[2024-09-08 06:07] LABS: Hematocrit 27.4 % (39.0-52.0); Hemoglobin 7.8 g/dL (13.0-18.0); Mean Corp Hgb Conc. 28.5 g/dL (33.0-37.0); Mean Corpuscular Hgb 22.2 pg (27.0-31.0); Mean Corpuscular Volume 78.1 fL (80.0-94.0); Mean Platelet Volume 9.3 fL (7.4-10.4); Platelet Count 279 10^3/uL (130-400); Red Blood Cell Count 3.51 10^6/uL (4.70-6.10); Red Cell Dist. Width 20.3 % (11.5-14.5); White Blood Cell Count 12.9 10^3/uL (4.8-10.8)
[2024-09-08 06:24] LABS: Blood Urea Nitrogen 58 mg/dl (9-20); Calcium 7.6 mg/dl (8.4-10.2); Carbon Dioxide 25 mmol/L (22-30); Chloride 110 mmol/L (98-107); Estimated Creatinine Clearance 42 ml/min; Glucose 99 mg/dl (70-99); Potassium 3.9 mmol/L (3.5-5.1); Sodium 148 mmol/L (135-145); eGFR 36.66
[2024-09-08 06:34] LABS: Troponin I < 0.012 ng/ml
[2024-09-08] MEDS: SPIRIVA RESPIMAT 2.5 MCG 2 PUFF INH (07:31)
[2024-09-08] MEDS: VENTOLIN NEBULES 2.5 MG INH ×4 (07:31→19:41)
[2024-09-08] MEDS: STRIVERDI RESPIMAT 2 PUFF INH (07:32)
[2024-09-08] MEDS: FARXIGA 10 MG PO (10:08)
[2024-09-08] MEDS: LOPRESSOR 25 MG PO ×2 (10:09→19:57)
[2024-09-08] MEDS: APRESOLINE 25 MG PO ×3 (10:09→22:25)
[2024-09-08] MEDS: FOLVITE 1 MG PO (10:09)
[2024-09-08] MEDS: KCL 20 MEQ PO ×2 (10:09→19:57)
[2024-09-08] MEDS: ZYLOPRIM 100 MG PO (10:09)
[2024-09-08] MEDS: LASIX 40 MG IV ×2 (10:10→15:26)
[2024-09-08 10:19] LABS: Glycohemoglobin (HgbA1c) 5.9 % (4.0-5.6)
[2024-09-08] MEDS: VITAMIN B-12 PO (10:26)
[2024-09-08 11:02] LABS: Troponin I < 0.012 ng/ml
--- NOTE | 2024-09-08 11:52 | EDRN ---
this RN called the receiving unit and notified them that paper report was going to be tubed up
--- NOTE | 2024-09-08 13:39 | W.PN.HOSP.TC ---
Today's Communication/Plan
-
Assessment / Plan
Assessment / Plan
General: No Apparent Distress, Comfortable and Conversant
HEENT: NormoCephalic, Moist mucous membranes, Atraumatic
Respiratory: Clear and Non Labored Respirations
Cardiac: S1/S2 and Regular Rhythm; No Rub or Gallop
GI: Soft, Non Tender, Non Distended and Normal Bowel Sounds
Musculoskeletal: Significant pitting lower extremity edema bilaterally with weeping, no deformity
Skin: Warm and dry
: NO [place]
Neuro: Awake, Alert, Nonfocal/grossly intact
Psych: Calm and Intact Judgment/Insight
Mr. Álvarez is a 84-year-old male with a medical history of HFpEF, COPD, A-fib, and morbid obesity who presented with worsening shortness of breath, weight gain, and lower extremity edema. He reports adherence with his home medication regimen.
He was found to be wheezing on initial exam. He has been admitted for treatment of COPD exacerbation and acute on chronic HFpEF.
HFpEF, acute on chronic:
- Continue diuresis with Lasix 40 mg IV twice daily, monitor I's and O's and daily weights
- Afterload reduction with hydralazine 25 mg p.o. 3 times daily
- Beta-blockade with metoprolol tartrate 25 mg p.o. twice daily
COPD with acute exacerbation:
- Continue IV steroids and scheduled breathing treatments
- Likely transition to oral steroids in the next 24 hours
- Additional nebulizers as needed
Iron deficiency anemia:
- Hemoglobin low but stable at 7.8 recent baseline appears to be around 9.5
- Holding anticoagulation due to known history of colonic angiodysplastic lesions noted on endoscopy in June 2024
- Continue Ferrlecit
- Monitor for bleeding, transfuse as needed
A-fib:
- Currently rate controlled with metoprolol tartrate 25 mg p.o. twice daily
- Holding anticoagulation with Pradaxa due to prior GI bleeding colonic angiodysplastic lesions
ZA on CKD stage III:
- Baseline creatinine appears to be around 1.3, on admission creatinine was 1.9 as only slightly improved to 1.8 today
- Will monitor for continued improvement with diuresis
DVT prophylaxis: SCD while Pradaxa on hold
CODE STATUS: DNR
Anticipated Discharge: > 48 hours
Subjective/Interval History
-
Date of Service: September 08, 2024
Patient was seen and examined at bedside this morning. He is breathing more comfortably after breathing treatments and steroids. Diuresing appropriately.
Objective Data
-
Labs:
Laboratory Results
09/08/24 09/08/24
01:25 05:44
WBC 13.2 H 12.9 H
Hgb 7.8 L 7.8 L
Hct 26.6 L 27.4 L
Plt Count 288 279
Sodium 147 H 148 H
Potassium 4.2 3.9
Chloride 112 H 110 H
Carbon Dioxide 25 25
BUN 54 H 58 H
Creatinine 1.9 H 1.8 H
Glucose 99 99
Calcium 7.9 L 7.6 L
Total Bilirubin 0.5
AST 16 L
ALT 12
Alkaline Phosphatase 90
Vital Signs:
Vital Signs
Temp Pulse Resp BP Pulse Ox
97.7 F 62 16 120/53 99
09/08/24 12:21 09/08/24 12:35 09/08/24 12:35 09/08/24 12:21 09/08/24 12:35
I&O
09/07/24 09/08/24 09/09/24
06:59 06:59 06:59
Output Total 550 / 550 250 / 250
Balance -550 / -550 -250 / -250
Review of Systems
-
History Source: Patient
All other systems: Reviewed and negative
Musculoskeletal: Reports Edema (Bilateral lower extremity edema)
Physical Exam
-
General: No Apparent Distress
[2024-09-08] MEDS: FERRLECIT 110 MG IV (15:26)
--- NOTE | 2024-09-08 15:27 | CM ---
Patient seen bedside.
IA completed.
Patient lives alone in a 2 story home with 3 steps to enter.
Bed and full bath on second floor, has powder room on 1st floor.
Patient has a stair glide up to the second floor.
patient does not drive, his friend will transport.
Patient currently on oxygen, not on oxygen at home.
Patient has had [facility] in the past and would like them again if needed.
patient has been to [facility], [facility] and [facility] in the past, if needed would like [facility].
Patient's friend Stephan will transport home home.
Patient denies food or housing insecurities.
PCP:Dr Zaragoza
Pharmacy- [facility], they package his meds in blister packs 7days per week. he has them deliver his meds.
Plan: home with possible [facility] needs ([facility]) vs skilled rehab, will need therapy evaluations when appropriate.
[2024-09-08] MEDS: LIPITOR 40 MG PO (17:30)
[2024-09-08] MEDS: VENTOLIN NEBULES INH (18:07)
--- NOTE | 2024-09-08 22:00 | PTCARENOTE ---
pt legs +4 edema, weak pedal pulses, brown pvd legs. pt on lasix BID. b/l legs- weeping. legs rafita on pillows w/ pads.
[2024-09-08] MEDS: PROZAC 40 MG PO (22:25)
[2024-09-08] MEDS: REMERON 7.5 MG PO (22:25)
[2024-09-08] MEDS: PROSCAR 5 MG PO (22:25)
[2024-09-08] MEDS: FLOMAX 0.4 MG PO (22:25)
[2024-09-09 03:06] VITALS: BP 134/58
[2024-09-09 03:40] VITALS: BMI 41.0
--- NOTE | 2024-09-09 03:43 | PTCARENOTE ---
pt HR 30-60's, afib w/ pauses throughout the shift.
[2024-09-09 06:00] VITALS: BMI 41.0
[2024-09-09] MEDS: SOLU-MEDROL PF 40 MG IV (06:03)
[2024-09-09] MEDS: STRIVERDI RESPIMAT 2 PUFF INH (07:31)
[2024-09-09] MEDS: VENTOLIN NEBULES 2.5 MG INH ×4 (07:31→20:21)
[2024-09-09] MEDS: SPIRIVA RESPIMAT 2.5 MCG 2 PUFF INH (07:31)
[2024-09-09 08:00] VITALS: BP 123/55
[2024-09-09 08:39] LABS: % Basophils 0.1 % (0-2); % Immature Granulocytes 0.8 % (0-0.5); % Lymphocytes 5.7 % (20.5-51.1); % Monocytes 4.5 % (1.7-9.3); % Neutrophils 88.9 % (42.2-75.2); Absolute Immature Granulocytes 0.1 10^3/uL (0-0.05); Absolute Lymphocytes 0.7 10^3/uL (1.2-3.4); Absolute Monocytes 0.5 10^3/uL (0.1-0.6); Absolute Neutrophils 10.1 10^3/uL (1.4-6.5); Hematocrit 26.3 % (39.0-52.0); Hemoglobin 7.5 g/dL (13.0-18.0); Mean Corp Hgb Conc. 28.5 g/dL (33.0-37.0); Mean Corpuscular Hgb 22.9 pg (27.0-31.0); Mean Corpuscular Volume 80.2 fL (80.0-94.0); Mean Platelet Volume 9.3 fL (7.4-10.4); Nucleated Red Blood Cells % 0.4 % (-); Platelet Count 278 10^3/uL (130-400); Red Blood Cell Count 3.28 10^6/uL (4.70-6.10); Red Cell Dist. Width 20.2 % (11.5-14.5); White Blood Cell Count 11.4 10^3/uL (4.8-10.8)
[2024-09-09] MEDS: ZYLOPRIM 100 MG PO (08:48)
[2024-09-09] MEDS: LOPRESSOR 25 MG PO ×2 (08:48→20:10)
[2024-09-09] MEDS: KCL 20 MEQ PO ×2 (08:48→20:10)
[2024-09-09] MEDS: VITAMIN B-12 1000 MCG PO (08:48)
[2024-09-09] MEDS: FARXIGA 10 MG PO (08:49)
[2024-09-09] MEDS: LASIX 40 MG IV ×2 (08:49→16:25)
[2024-09-09] MEDS: APRESOLINE 25 MG PO (08:49)
[2024-09-09] MEDS: FOLVITE 1 MG PO (08:49)
[2024-09-09 09:01] LABS: Blood Urea Nitrogen 54 mg/dl (9-20); Calcium 7.7 mg/dl (8.4-10.2); Carbon Dioxide 28 mmol/L (22-30); Chloride 111 mmol/L (98-107); Estimated Creatinine Clearance 46 ml/min; Glucose 126 mg/dl (70-99); Potassium 4.5 mmol/L (3.5-5.1); Sodium 147 mmol/L (135-145); eGFR 42.22
[2024-09-09 11:27] VITALS: BP 152/73
--- NOTE | 2024-09-09 14:18 | W.PN.HOSP.TC ---
Addendum entered and electronically signed by Laurent Swift DO 09/10/24 09:01:
Additional diagnosis
Hypernatremia: Mild, clinically insignificant at this time, will monitor
Original Note:
Today's Communication/Plan
-
Assessment / Plan
Assessment / Plan
General: No Apparent Distress, Comfortable and Conversant
HEENT: NormoCephalic, Moist mucous membranes, Atraumatic
Respiratory: Clear and Non Labored Respirations
Cardiac: S1/S2 and Regular Rhythm; No Rub or Gallop
GI: Soft, Non Tender, Non Distended and Normal Bowel Sounds
Musculoskeletal: Significant pitting lower extremity edema bilaterally, no deformity
Skin: Warm and dry
: NO Acosta
Neuro: Awake, Alert, Nonfocal/grossly intact
Psych: Calm and Intact Judgment/Insight
Mr. Álvarez is a 84-year-old male with a medical history of HFpEF, COPD, A-fib, and morbid obesity who presented with worsening shortness of breath, weight gain, and lower extremity edema. He reports adherence with his home medication regimen.
He was found to be wheezing on initial exam. He has been admitted for treatment of COPD exacerbation and acute on chronic HFpEF.
HFpEF, acute on chronic:
- Continue diuresis with Lasix 40 mg IV twice daily, fluid balance is -1.2 L so far this admission, suspect weights have been an accurate
- Afterload reduction with hydralazine 25 mg p.o. 3 times daily
- Beta-blockade with metoprolol tartrate 25 mg p.o. twice daily
- Anticipate switching to oral Lasix in the next 24 hours
COPD with acute exacerbation:
- Breathing comfortably, no wheezing on exam
- Will transition to oral prednisone tomorrow 09/10
- Continue scheduled breathing treatments
- Additional nebulizers as needed
Iron deficiency anemia:
- Hemoglobin low but stable at 7.5 recent baseline appears to be around 9.5
- Holding anticoagulation due to known history of colonic angiodysplastic lesions noted on endoscopy in June 2024
- Continue Ferrlecit
- Monitor for bleeding, check Hemoccult, transfuse as needed
A-fib:
- Currently rate controlled with metoprolol tartrate 25 mg p.o. twice daily
- Holding anticoagulation with Pradaxa due to prior GI bleeding colonic angiodysplastic lesions
ZA on CKD stage III:
- Baseline creatinine appears to be around 1.3, on admission creatinine was 1.9, has improved to 1.6 today
- Will monitor for continued improvement with diuresis
DVT prophylaxis: SCD while Pradaxa on hold
CODE STATUS: DNR
Total time spent 40 minutes
Anticipated Discharge: 24 - 48 hours
Subjective/Interval History
-
Date of Service: September 09, 2024
Patient was seen and examined at bedside this morning. Continues to diurese well with a fluid balance of 1.2 L so far this admission, suspect weights have been inaccurate.
Objective Data
-
Labs:
Laboratory Results
09/09/24
07:56
WBC 11.4 H
Hgb 7.5 L
Hct 26.3 L
Plt Count 278
Sodium 147 H
Potassium 4.5
Chloride 111 H
Carbon Dioxide 28
BUN 54 H
Creatinine 1.6 H
Glucose 126 H
Calcium 7.7 L
Vital Signs:
Vital Signs
Temp Pulse Resp BP Pulse Ox
97.8 F 66 18 152/73 97
09/09/24 11:27 09/09/24 12:04 09/09/24 12:04 09/09/24 11:27 09/09/24 12:04
I&O
09/08/24 09/09/24 09/10/24
06:59 06:59 06:59
Intake Total 310 / 310 300 / 300
Output Total 550 / 550 2074
Balance -550 / -550 -1765 / -1765 300 / 300
Review of Systems
-
History Source: Patient
All other systems: Reviewed and negative
Physical Exam
-
General: No Apparent Distress
[2024-09-09] MEDS: FERRLECIT 110 MG IV (15:04)
[2024-09-09 15:34] VITALS: BP 106/53
[2024-09-09] MEDS: APRESOLINE PO ×2 (16:25→22:51)
[2024-09-09] MEDS: LIPITOR 40 MG PO (16:25)
[2024-09-09 19:30] VITALS: BP 143/49
[2024-09-09 22:50] VITALS: BP 101/68
[2024-09-09] MEDS: PROSCAR 5 MG PO (22:51)
[2024-09-09] MEDS: REMERON 7.5 MG PO (22:51)
[2024-09-09] MEDS: FLOMAX 0.4 MG PO (22:51)
[2024-09-09] MEDS: PROZAC 40 MG PO (22:52)
--- NOTE | 2024-09-09 23:15 | PTCARENOTE ---
pt legs +3 edema, weak pedal pulses, brown pvd legs. pt on lasix BID. b/l legs- weeping copious amounts of drainage. 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
[2024-09-10 03:53] VITALS: BP 134/62
[2024-09-10 06:00] VITALS: BMI 41.3
[2024-09-10] MEDS: SPIRIVA RESPIMAT 2.5 MCG 2 PUFF INH (07:13)
[2024-09-10] MEDS: VENTOLIN NEBULES 2.5 MG INH ×5 (07:13→23:53)
[2024-09-10] MEDS: STRIVERDI RESPIMAT 2 PUFF INH (07:13)
[2024-09-10 07:36] VITALS: BP 125/56
[2024-09-10] MEDS: APRESOLINE 25 MG PO ×3 (08:36→21:38)
[2024-09-10] MEDS: FARXIGA 10 MG PO (08:36)
[2024-09-10] MEDS: DELTASONE 40 MG PO (08:37)
[2024-09-10] MEDS: VITAMIN B-12 1000 MCG PO (08:38)
[2024-09-10] MEDS: ZYLOPRIM 100 MG PO (08:38)
[2024-09-10] MEDS: FOLVITE 1 MG PO (08:38)
[2024-09-10] MEDS: LASIX 40 MG IV (08:39)
[2024-09-10] MEDS: KCL 20 MEQ PO ×2 (08:39→19:42)
[2024-09-10] MEDS: LOPRESSOR 25 MG PO ×2 (08:39→19:42)
--- NOTE | 2024-09-10 08:44 | PN.CDI ---
CDI
- -
CDI:
Physician Documentation Request
Admit Date: 09/08/24 04:12
Dear Doctor Jamison,
Clinical Indicators:
Patient admitted with acute on chronic HFpEF.
Lasix 40 mg IV bid ordered.
Sodium trend:
09/08/24 09/08/24 09/09/24
05:44 07:56
Sodium 147 H 148 H 147 H
Based on the above, could you clarify in the progress notes, the appropriate diagnosis, if significant, that supports the above abnormalities and additional evaluation, monitoring and/or treatment rendered:
Hypernatremia
Abnormal lab values, clinically insignificant
Other, please specify
Use of terms such as suspected, likely, concern for, or probable (associated with a specific diagnosis that is being evaluated, monitored, or treated as if it exists) are acceptable and can be coded in the inpatient setting, when documented at the
time of discharge.
Thank you,
RL Yin RN
CDI Specialist
available via tiger text
Please use your independent medical judgment in providing your response.
[2024-09-10 08:45] LABS: % Basophils 0.1 % (0-2); % Eosinophils 0.3 % (0-6); % Lymphocytes 10.4 % (20.5-51.1); % Monocytes 8.7 % (1.7-9.3); % Neutrophils 79.5 % (42.2-75.2); Absolute Immature Granulocytes 0.1 10^3/uL (0-0.05); Absolute Lymphocytes 1.4 10^3/uL (1.2-3.4); Absolute Monocytes 1.2 10^3/uL (0.1-0.6); Absolute Neutrophils 10.7 10^3/uL (1.4-6.5); Hematocrit 25.7 % (39.0-52.0); Hemoglobin 7.3 g/dL (13.0-18.0); Mean Corp Hgb Conc. 28.4 g/dL (33.0-37.0); Mean Corpuscular Hgb 22.3 pg (27.0-31.0); Mean Corpuscular Volume 78.4 fL (80.0-94.0); Mean Platelet Volume 9.3 fL (7.4-10.4); Nucleated Red Blood Cells % 0.4 % (-); Platelet Count 310 10^3/uL (130-400); Red Blood Cell Count 3.28 10^6/uL (4.70-6.10); Red Cell Dist. Width 20.3 % (11.5-14.5); White Blood Cell Count 13.5 10^3/uL (4.8-10.8)
[2024-09-10 09:05] LABS: Blood Urea Nitrogen 56 mg/dl (9-20); Carbon Dioxide 23 mmol/L (22-30); Chloride 111 mmol/L (98-107); Estimated Creatinine Clearance 47 ml/min; Glucose 91 mg/dl (70-99); Potassium 4.1 mmol/L (3.5-5.1); Sodium 146 mmol/L (135-145); eGFR 42.22
[2024-09-10 09:11] LABS: Anisocytosis 1+; Hypochromasia 2+; Normal RBC Morphology No; Ovalocytes 1+; Polychromasia 1+
--- NOTE | 2024-09-10 10:08 | CM ---
Patient seen bedside.
OOB ambulating in room.
Patient known to Jael AGUIRRE, will place referral in [facility] for CHF management.
Continues with IV diuresis.
Patient has friend to transport home when stable.
Plan: home with Jael AGUIRRE
[2024-09-10 11:21] VITALS: BP 126/58
[2024-09-10] MEDS: FERRLECIT 110 MG IV (13:33)
--- NOTE | 2024-09-10 14:15 | W.PN.HOSP.TC ---
Today's Communication/Plan
-
Assessment / Plan
Assessment / Plan
General: No Apparent Distress, Comfortable and Conversant
HEENT: NormoCephalic, Moist mucous membranes, Atraumatic
Respiratory: Clear and Non Labored Respirations
Cardiac: S1/S2 and Regular Rhythm; No Rub or Gallop
GI: Soft, Non Tender, Non Distended and Normal Bowel Sounds
Musculoskeletal: Significant pitting lower extremity edema bilaterally, no deformity
Skin: Warm and dry
: NO Acosta
Neuro: Awake, Alert, Nonfocal/grossly intact
Psych: Calm and Intact Judgment/Insight
Mr. Álvarez is a 84-year-old male with a medical history of HFpEF, COPD, A-fib, and morbid obesity who presented with worsening shortness of breath, weight gain, and lower extremity edema. He reports adherence with his home medication regimen.
He was found to be wheezing on initial exam. He has been admitted for treatment of COPD exacerbation and acute on chronic HFpEF.
HFpEF, acute on chronic:
- Increased Lasix dose to 80 mg IV twice daily, does not appear to be a significant negative fluid balance so far
- Have consulted cardiology
- Afterload reduction with hydralazine 25 mg p.o. 3 times daily
- Beta-blockade with metoprolol tartrate 25 mg p.o. twice daily
COPD with acute exacerbation:
- Breathing comfortably, no wheezing on exam
- Transitioned to short course of oral prednisone
- Continue scheduled breathing treatments
- Additional nebulizers as needed
Iron deficiency anemia:
- Hemoglobin continues to slowly drop, down to 7.3 today, recent baseline appears to be around 9.5
- Holding anticoagulation due to known history of colonic angiodysplastic lesions noted on endoscopy in June 2024
- Continue Ferrlecit
- Check Hemoccult
- Transfuse as needed
A-fib:
- Currently rate controlled with metoprolol tartrate 25 mg p.o. twice daily
- Holding anticoagulation with Pradaxa due to prior GI bleeding colonic angiodysplastic lesions
ZA on CKD stage III:
- Baseline creatinine appears to be around 1.3, on admission creatinine was 1.9, stable at 1.6 today
- Will monitor for continued improvement with diuresis
DVT prophylaxis: SCD while Pradaxa on hold
CODE STATUS: DNR
Total time spent 40 minutes
Anticipated Discharge: > 48 hours
Subjective/Interval History
-
Date of Service: September 10, 2024
Patient was seen and examined at bedside. He reports ongoing dyspnea with minimal exertion. He also has ongoing weeping from his edematous lower extremities. He is however in good spirits and telling jokes mostly about the [employer].
Objective Data
-
Labs:
Laboratory Results
09/10/24
08:08
WBC 13.5 H
Hgb 7.3 L
Hct 25.7 L
Plt Count 310
Sodium 146 H
Potassium 4.1
Chloride 111 H
Carbon Dioxide 23
BUN 56 H
Creatinine 1.6 H
Glucose 91
Calcium 8.0 L
Vital Signs:
Vital Signs
Temp Pulse Resp BP Pulse Ox
97.8 F 64 17 126/58 99
09/10/24 11:21 09/10/24 11:21 09/10/24 11:21 09/10/24 11:21 09/10/24 11:21
I&O
09/09/24 09/10/24 09/11/24
06:59 06:59 06:59
Intake Total 310 / 310 1520 / 1520 410 / 410
Output Total 2074 / 2074 1550 / 1550 625 / 625
Balance -1765 / -1765 -30 / -30 -215 / -215
Review of Systems
-
History Source: Patient
All other systems: Reviewed and negative
Respiratory: Reports Trouble Breathing
Musculoskeletal: Reports Edema
Physical Exam
-
General: No Apparent Distress
[2024-09-10 15:19] VITALS: BP 137/66
--- NOTE | 2024-09-10 15:23 | CON.CAR ---
Addendum entered and electronically signed by Crow Abrams MD 09/10/24 18:15:
I saw and examined the patient independently. I discussed the assessment/plan with resident MD Dr Rao, with changes/additions noted.
84 yo male with chronic HFPEF, permanent A fib pradaxa is admitted with progressive edema, SOB, weight gain. Exam with irregular rhythm, no murmurs, 2+ LE edema. Cr 1.6. Tele: rate controlled A fib.
Acute on chronic HFPEF. Severe, requiring hospitalization, and IV lasix, with close monitoring of labs, tele. Increase lasix to 80mg IV bid.
Permanent A fib. Pradaxa held by hospitalist team due to downtrending Hgb. Trend.
Original Note:
Consultation
Consultation Request
Date/Time Consultation Requested: 09/10/2024/1:30pm
Date/Time Consultation Performed: 09/10/2024/2:00pm
Requesting Provider: Jamison Mancilla DO.
Performing Provider: Crow Abrams MD.
Reason for Consultation: Acute on chronic CHF
Medical History
-
Chief Complaint: Worsening SOB, weight gain, LE edema
History of Present Illness:
84 year old male with history of HFpEF, permanent Afib, essential hypertension, CAD s/p stenting, CVA, gout, COPD, who presents with worsening SOB, Lower extremity edema, and weight gain of 11 lbs over the past week. He noted that dyspnea was
present even at rest, and family/friends remarked that he sounded SOB while speaking. He is adherent to his medications and checks his weight daily. He reports an approximate dry weight of 270s lbs.
He denies orthopnea, cough, chest pain, palp, fever, recent illness.
On admission, trop 0.012, ProBNP 5150, Cr 1.9, wt 132kg. Cardiology consulted to assist with management of acute heart failure exacerbation.
Past Medical History
Past Medical History: Arrhythmias (permanent Afib), CAD, CHF (HFpEF), CVA and HTN
Past Surgical History: Cardiac (LINQ implant, PTCA stent) and Orthopedic (Lumbar laminectomy)
Social History
Tobacco: Former Smoker (Quit 20 years ago )
Alcohol: None
Drug: None
Family History
Family History: Reviewed & Not Pertinent
Allergies / Home Medications
Allergy/AdvReac Type Severity Reaction Status Date / Time
No Known Allergies Allergy Verified 09/08/24 01:20
�Medication �Instructions �Recorded �Confirmed �Type
atorvastatin 40 mg tablet 40 mg PO QPM High cholesterol 01/19/20 09/08/24 History
dabigatran etexilate 150 mg 150 mg PO BID Blood clot 01/19/20 09/08/24 History
capsule (Pradaxa) prevention/tx
finasteride 5 mg tablet 5 mg PO HS Urinary issue 04/07/20 09/08/24 History
metoprolol tartrate 25 mg tablet 25 mg PO BID Blood pressure 04/07/20 09/08/24 History
tamsulosin 0.4 mg capsule 0.4 mg PO HS Urinary issue 04/07/20 09/08/24 History
fluoxetine 40 mg capsule (Prozac) 40 mg PO HS depression/anxiety 11/02/21 09/08/24 History
folic acid 1 mg tablet 1 mg PO DAILY Supplement 06/19/23 09/08/24 History
hydralazine 25 mg tablet 25 mg PO TID #1 tab 06/25/23 09/08/24 Rx
mirtazapine 15 mg tablet 15 mg PO HS sleep 08/28/23 09/08/24 History
umeclidinium 62.5 mcg-vilanterol 1 inh inhalation R DAILY 12/10/23 09/08/24 History
25 mcg/actuation powdr for Lung/Breathing Issues
inhalation (Anoro Ellipta)
albuterol sulfate 2.5 mg/3 mL 2.5 mg inhalation R QIDPRN PRN sob 06/19/24 09/08/24 History
(0.083 %) solution for nebulization
albuterol sulfate 90 mcg/actuation 1 puff inhalation R Q4HPRN PRN 06/19/24 09/08/24 History
aerosol inhaler (Ventolin HFA) wheeze/SOB
allopurinol 100 mg tablet 100 mg PO DAILY gout prophylaxis 06/19/24 09/08/24 History
cyanocobalamin (vitamin B-12) 1,000 mcg PO DAILY Supplement 06/19/24 09/08/24 History
1,000 mcg tablet,extended release
dapagliflozin propanediol 10 mg 10 mg PO DAILY Heart Failure 06/19/24 09/08/24 History
tablet (Farxiga)
potassium chloride 20 mEq 20 meq PO BID Electrolyte Repletion 06/19/24 09/08/24 History
tablet,extended release(part/cryst)
torsemide 20 mg tablet 40 mg PO BID Fluid 06/19/24 09/08/24 History
Retention/Swelling
clopidogrel 75 mg tablet (Plavix) 75 mg PO DAILY 09/08/24 09/08/24 History
Review of Systems
-
History Source: Patient
Constitutional: Weight Gain and Other (No fever)
Respiratory: Trouble Breathing and Other (no cough)
Cardiac: Other (no chest pain or palpitations)
: Other (normal urine output, no difficulty voiding)
Skin: Other (weeping from left leg)
Physical Exam
Vital Signs
Temp Pulse Resp BP Pulse Ox
97.9 F 72 18 137/66 99
09/10/24 15:19 09/10/24 15:19 09/10/24 15:19 09/10/24 15:19 09/10/24 15:19
Lab Results
09/10/24 08:08
09/10/24 08:08
Troponin I Cancelled 09/08/24 16:17
Mjd-K-Ounyvxbiibs Pept 5150 pg/ml 09/08/24 01:25
Physical Exam
General: Respiratory Distress
HEENT: Normocephalic, Anicteric and Moist Mucous Membranes
Respiratory: Clear and Other (increased work of breathing); Negative Wheezes, Crackles or Rhonchi
Cardiac: S1/S2, Irregular Rhythm (regularly irregular) and Peripheral Edema (Bilateral LE); Negative Murmur, Rub, Calf Tenderness or JVD (Large body habitus)
GI: Soft, Non Tender, Non Distended and Normal Bowel Sounds
Genito-urinary: No Costovertebral Tender
Skin: Warm and Dry
Neuro: Awake, Alert and Oriented
Psych: Calm
Impression / Plan
-
84 year old male with history of HFpEF, permanent Afib, essential hypertension, CAD s/p stenting, CVA, gout, COPD who presents with acute HFpEF exacerbation.
Acute on chronic HFpEF:
- Agree with Lasix 80mg IV
- follow strict IandO, fluid restrict, daily weights with dry weight goal of 127kg, follow BMP
- If no significant diuresis, consider adding Metolazone 5mg to augment diuresis
- There is room for more GDMT
- Tele while diuresing
permanent Afib:
- Dabigatran held for anemia
ZA on CKD 3:
- Improving. Likely secondary to HF exacerbation/congestion
- Continue IV diuresis.
- Follow BMP
CAD/CVA:
- Continue atorvastatin
Essential hypertension:
- Continue Metoprolol tartrate and Hydralazine
PCI:
1. Codominant circulation with a long, 30% mid LAD lesion culminating in an occlusive 70% lesion (IFR = 0.65), status post successful PCI of the entire lesion (overlapping Xience Skypoint 3.0 x 28 JANETTE, 3.25 x 8 JANETTE, postdilated with a 3.0 NC
balloon) with reduction in all stenoses to 0%, maintaining TOMY-3 flow.
2. Severely elevated filling pressures (LVEDP = 24 mmHg, PCWP = 25 mmHg at 134.3 kg).
3. Moderate pulmonary hypertension, WHO group 2
Echo 06/19/2024:
Left ventricular ejection fraction is 60-65%. Normal regional wall motion.
Enlarged right ventricular size. Normal right ventricular systolic function.
Aortic valve is poorly visualized. Likely mild aortic stenosis; peak/mean
gradients 13/8 mmHg, calculated BRIONAN 1.8 cm2.
Mild tricuspid regurgitation. Estimated pulmonary artery pressure of 60-65
mmHg, assuming a right atrial pressure of 8 mmHg.
[2024-09-10] MEDS: LASIX 80 MG IV (16:12)
[2024-09-10] MEDS: LIPITOR 40 MG PO (17:03)
[2024-09-10 19:20] VITALS: BP 136/74
[2024-09-10] MEDS: PROZAC 40 MG PO (21:37)
[2024-09-10] MEDS: REMERON 7.5 MG PO (21:37)
[2024-09-10] MEDS: FLOMAX 0.4 MG PO (21:37)
[2024-09-10] MEDS: PROSCAR 5 MG PO (21:37)
[2024-09-10] MEDS: TYLENOL 650 MG PO (21:38)
[2024-09-10 22:40] VITALS: BP 129/54
[2024-09-11] VITALS (7 sets, daily range): BP systolic 112–149; BP diastolic 57–72; BMI 41.2
--- NOTE | 2024-09-11 01:26 | PTCARENOTE ---
pt had a small heme positive bm.
[2024-09-11] MEDS: TYLENOL 650 MG PO (01:46)
[2024-09-11] MEDS: MELATONIN 5 MG PO (01:46)
[2024-09-11 06:28] LABS: % Basophils 0.1 % (0-2); % Eosinophils 0.4 % (0-6); % Lymphocytes 10.1 % (20.5-51.1); % Monocytes 9.1 % (1.7-9.3); % Neutrophils 79.3 % (42.2-75.2); Absolute Eosinophils 0.1 10^3/uL (0-0.7); Absolute Immature Granulocytes 0.2 10^3/uL (0-0.05); Absolute Lymphocytes 1.5 10^3/uL (1.2-3.4); Absolute Monocytes 1.3 10^3/uL (0.1-0.6); Absolute Neutrophils 11.4 10^3/uL (1.4-6.5); Hematocrit 23.9 % (39.0-52.0); Hemoglobin 6.8 g/dL (13.0-18.0); Mean Corp Hgb Conc. 28.5 g/dL (33.0-37.0); Mean Corpuscular Hgb 22.9 pg (27.0-31.0); Mean Corpuscular Volume 80.5 fL (80.0-94.0); Mean Platelet Volume 9.3 fL (7.4-10.4); Nucleated Red Blood Cells % 0.7 % (-); Platelet Count 264 10^3/uL (130-400); Red Blood Cell Count 2.97 10^6/uL (4.70-6.10); Red Cell Dist. Width 20.5 % (11.5-14.5); White Blood Cell Count 14.4 10^3/uL (4.8-10.8)
--- NOTE | 2024-09-11 06:57 | W.PN.UPDATE ---
Update Note
Progress Note Update
hgb 6.8, heme positive, type and screen, blood consent obtained, asymptomatic, will transfuse 1 unit PRBC's. consult GI
[2024-09-11] MEDS: SPIRIVA RESPIMAT 2.5 MCG 2 PUFF INH (07:22)
[2024-09-11] MEDS: VENTOLIN NEBULES 2.5 MG INH ×4 (07:22→19:24)
[2024-09-11] MEDS: STRIVERDI RESPIMAT 2 PUFF INH (07:22)
[2024-09-11 08:37] LABS: Blood Urea Nitrogen 56 mg/dl (9-20); Calcium 7.7 mg/dl (8.4-10.2); Carbon Dioxide 28 mmol/L (22-30); Chloride 110 mmol/L (98-107); Estimated Creatinine Clearance 50 ml/min; Glucose 119 mg/dl (70-99); Potassium 4.1 mmol/L (3.5-5.1); Sodium 147 mmol/L (135-145); eGFR 45.62
--- NOTE | 2024-09-11 08:40 | W.PN.CD ---
Today's Communication / Plan
-
continue IV diuresis
Robert wraps to legs
Agree with blood
GI evaluation.
Impression / Plan
-
84 year old male with history of HFpEF, permanent Afib, essential hypertension, CAD s/p stenting, CVA, gout, COPD who presents with acute HFpEF exacerbation.
Acute on chronic HFpEF:
- Agree with Lasix 80mg IV BID
- follow strict IandO, fluid restrict, daily weights with dry weight goal of 127kg, follow BMP
-may need additional dose of Lasix after transfusion
- There is room for more GDMT, MRA stopped in the past for OH.
- Tele while diuresing
permanent Afib:
- Dabigatran held for anemia
- Depending on GI workup, may need to start considering a watchman. I explained this is not ideal but her hand may be forced.
ZA on CKD 3:
- Improving. Likely secondary to HF exacerbation/congestion
- Continue IV diuresis.
- Follow BMP
Acute Anemia:
-high risk given DOAC
-Hgb now 6.8-->agree with prbcs
-Heme + stool--> GI consulted
CAD/CVA:
- Continue atorvastatin
Essential hypertension:
- Continue Metoprolol tartrate and Hydralazine
Lymphedema:
-b/l, needs robert wraps
Subjective:
last night needed oxygen for sob then felt better, reports stool has been intermittently black at home
PCI:
1. Codominant circulation with a long, 30% mid LAD lesion culminating in an occlusive 70% lesion (IFR = 0.65), status post successful PCI of the entire lesion (overlapping Xience Skypoint 3.0 x 28 JANETTE, 3.25 x 8 JANETTE, postdilated with a 3.0 NC
balloon) with reduction in all stenoses to 0%, maintaining TOMY-3 flow.
2. Severely elevated filling pressures (LVEDP = 24 mmHg, PCWP = 25 mmHg at 134.3 kg).
3. Moderate pulmonary hypertension, WHO group 2
Echo 06/19/2024:
Left ventricular ejection fraction is 60-65%. Normal regional wall motion.
Enlarged right ventricular size. Normal right ventricular systolic function.
Aortic valve is poorly visualized. Likely mild aortic stenosis; peak/mean
gradients 13/8 mmHg, calculated BRIONNA 1.8 cm2.
Mild tricuspid regurgitation. Estimated pulmonary artery pressure of 60-65
mmHg, assuming a right atrial pressure of 8 mmHg.
Physical Exam
Vital Signs/Labs
Vital Signs
Temp Pulse Resp BP Pulse Ox
97.5 F 84 24 138/57 96
09/11/24 07:00 09/11/24 07:24 09/11/24 07:24 09/11/24 07:00 09/11/24 07:24
09/10/24 09/11/24 09/12/24
06:59 06:59 06:59
Actual Weight 287 lb 9 oz 287 lb
09/11/24 06:04
09/11/24 06:04
09/08/24
01:25
Mhi-B-Ofnrviyards Pept 5150
LAB Results
09/08/24 09/08/24
10:30 16:17
Troponin I < 0.012 Cancelled
Physical Exam
Constitutional: No acute distress
Cardiovascular: Rhythm & rate is regular, Diastolic murmur absent, Pedal edema present (2-3+ bl ) and S1S2 is normal
Respiratory: Respiratory effort normal, Lungs clear to auscul., Wheeze Absent and Rhonchi Absent
Neuro/Psych: AO x 3
Data Reviewed
-
Date of Service: September 11, 2024
EKG: Other (Sinus jonas with pvcs on tele)
[2024-09-11] MEDS: APRESOLINE 25 MG PO ×3 (08:49→20:49)
[2024-09-11] MEDS: LASIX 80 MG IV ×2 (08:50→14:54)
[2024-09-11] MEDS: FOLVITE 1 MG PO (08:50)
[2024-09-11] MEDS: ZYLOPRIM 100 MG PO (08:50)
[2024-09-11] MEDS: KCL 20 MEQ PO ×2 (08:50→20:50)
[2024-09-11] MEDS: DELTASONE 40 MG PO (08:50)
[2024-09-11] MEDS: FARXIGA 10 MG PO (08:50)
[2024-09-11] MEDS: LOPRESSOR 25 MG PO ×2 (08:50→20:50)
[2024-09-11] MEDS: VITAMIN B-12 1000 MCG PO (08:50)
--- NOTE | 2024-09-11 09:33 | CON.GI ---
Addendum entered and electronically signed by Daniel Shi MD 09/11/24 14:59:
I saw and examined the patient.
The medical imaging technologist note was reviewed and I agree with the note.
--acute on chronic anemia - underwent EGD/ colonoscopy with 06/2024 . noted to have esophageal candidiasis. 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 currently denies any overt GI bleed. heme occult + ( plavix was stopped during last
admission 06/2024 )
--admitted with acute on chronic CHF
--COPD with acute exacerbation
--afib on Pradaxa. Currently on hold
-- ZA on CKD
plan
Transfuse 1 unit PRBC. Continue to monitor H&H. Keep Hb above 7
If no overt bleeding and Hb staying stable after transfusion - okay to restart Pradaxa in 48 hours considering benefit vs risks. He may require watchman in the future
Patient currently denies any overt GI bleeding. With history of colonic AVMs there is high probability of small bowel AVMs as well. Will arrange video capsule endoscopy as outpatient with Dr. Gilbert
Continue current care as medical team.
No Further recommendation at this point. Will sign off. Outpatient follow-up with Dr. Gilbert - message sent
Original Note:
Consultation
-
Date/Time Consultation Requested: 09/11/24
Date/Time Consultation Performed: 09/11/24
Requesting Provider: Dr Daniel Shi
Performing Provider: Dr Tamra Dawkins
Reason for Consultation: anemia
Medical History
Chief Complaint / HPI
Chief Complaint: SOB, LE edema
History of Present Illness:
84 year old male presented with SOB, LE edema, weight gain of 11 lbs which prompted him to come to the ED. PMH of CHF, CAD, permanent afib on Pradaxa. Patient reports that he has gained around 11 pounds in 1 week. He reports that his left lower
leg edema has worsened to a point that it is weeping out fluid. He reports of being adherent with his medications. He has a his history of hemorrhoids, last colonoscopy and endoscopy 2 months ago. He denies hematochezia, melena, hemoptysis. He
reports noticing small red spots on the toilet paper when he wipes which is intermittent.
Workup in the ED shows acute heart failure exacerbation, currently on IV Lasix, on 3L of O2. Hemoglobin has been downtrending , currently 6.8, baseline is 9.5. Patient has not received any transfusions yet. GI is consulted to comment on anemia.
Past Medical History
Past Medical History: Arrhythmias (permanent afib ), CAD, CHF, COPD, HTN and Hypercholesterolemia
Social History
Tobacco: Former Smoker
Alcohol: None
Drug: None
Personal:
Living: With Family
Employment: Retired
Family History
Family History: Reviewed & Not Pertinent
Allergies / Home Medications
Allergy/AdvReac Type Severity Reaction Status Date / Time
No Known Allergies Allergy Verified 09/08/24 01:20
�Medication �Instructions �Recorded
atorvastatin 40 mg tablet 40 mg PO QPM High cholesterol 01/19/20
dabigatran etexilate 150 mg 150 mg PO BID Blood clot 01/19/20
capsule (Pradaxa) prevention/tx
finasteride 5 mg tablet 5 mg PO HS Urinary issue 04/07/20
metoprolol tartrate 25 mg tablet 25 mg PO BID Blood pressure 04/07/20
tamsulosin 0.4 mg capsule 0.4 mg PO HS Urinary issue 04/07/20
fluoxetine 40 mg capsule (Prozac) 40 mg PO HS depression/anxiety 11/02/21
folic acid 1 mg tablet 1 mg PO DAILY Supplement 06/19/23
hydralazine 25 mg tablet 25 mg PO TID #1 tab 06/25/23
mirtazapine 15 mg tablet 15 mg PO HS sleep 08/28/23
umeclidinium 62.5 mcg-vilanterol 1 inh inhalation R DAILY 12/10/23
25 mcg/actuation powdr for Lung/Breathing Issues
inhalation (Anoro Ellipta)
albuterol sulfate 2.5 mg/3 mL 2.5 mg inhalation R QIDPRN PRN sob 06/19/24
(0.083 %) solution for nebulization
albuterol sulfate 90 mcg/actuation 1 puff inhalation R Q4HPRN PRN 06/19/24
aerosol inhaler (Ventolin HFA) wheeze/SOB
allopurinol 100 mg tablet 100 mg PO DAILY gout prophylaxis 06/19/24
cyanocobalamin (vitamin B-12) 1,000 mcg PO DAILY Supplement 06/19/24
1,000 mcg tablet,extended release
dapagliflozin propanediol 10 mg 10 mg PO DAILY Heart Failure 06/19/24
tablet (Farxiga)
potassium chloride 20 mEq 20 meq PO BID Electrolyte Repletion 06/19/24
tablet,extended release(part/cryst)
torsemide 20 mg tablet 40 mg PO BID Fluid 06/19/24
Retention/Swelling
clopidogrel 75 mg tablet (Plavix) 75 mg PO DAILY 09/08/24
Review of Systems
-
All other systems: A 12 pt ROS was Negative except as stated above in HPI
Vital Signs
Temp Pulse Resp BP Pulse Ox
97.5 F 66 24 138/57 96
09/11/24 07:00 09/11/24 08:50 09/11/24 07:24 09/11/24 08:50 09/11/24 07:24
Physical Exam
Exam
General: Comfortable
HEENT: Normocephalic and Anicteric
Respiratory: Other (Decreased breath sounds bilaterally)
Cardiac: Irregular Rhythm
GI: Soft, Non Tender, Non Distended and Normal Bowel Sounds
Rectal: Hem Positive
Musculoskeletal: Edema
Neuro: AO x 3
Psych: Calm
Results
WBC 14.4 10^3/uL (4.8-10.8) H 09/11/24 06:04
Hgb 6.8 g/dL (13.0-18.0) L* 09/11/24 06:04
Hct 23.9 % (39.0-52.0) L 09/11/24 06:04
MCV 80.5 fL (80.0-94.0) 09/11/24 06:04
Plt Count 264 10^3/uL (130-400) 09/11/24 06:04
Absolute Neuts (auto) 11.4 10^3/uL (1.4-6.5) H 09/11/24 06:04
Sodium 147 mmol/L (135-145) H 09/11/24 06:04
Potassium 4.1 mmol/L (3.5-5.1) 09/11/24 06:04
Chloride 110 mmol/L (98-107) H 09/11/24 06:04
Carbon Dioxide 28 mmol/L (22-30) 09/11/24 06:04
BUN 56 mg/dl (9-20) H 09/11/24 06:04
Creatinine 1.5 mg/dL (0.7-1.3) H 09/11/24 06:04
Calcium 7.7 mg/dl (8.4-10.2) L 09/11/24 06:04
Total Bilirubin 0.5 mg/dl (0.2-1.3) 09/08/24 01:25
AST 16 U/L (17-59) L 09/08/24 01:25
ALT 12 U/L (0-50) 09/08/24 01:25
Alkaline Phosphatase 90 U/L (38-126) 09/08/24 01:25
Diagnostic Image Results:
Prior GI Procedures:
EGD: 06/26/24
- White nummular lesions in esophageal mucosa. Brushings performed.
- Erythematous mucosa in the antrum. Biopsied.
- 2 cm hiatal hernia.
- Normal examined duodenum. Biopsied.
Colonoscopy: 06/26/24
- Preparation of the colon was fair.
- Non-bleeding internal hemorrhoids.
- Multiple non-bleeding colonic angiodysplastic
lesions. Treated with argon plasma coagulation (APC).
- A single non-bleeding colonic angiodysplastic
lesion. Treated with argon plasma coagulation (APC).
- Diverticulosis in the sigmoid colon and in the
descending colon.
- One 8 mm polyp in the cecum. Resection not attempted.
- No specimens collected.
Assessment / Plan
-
Assessment and plan
#Acute anemia unclear etiology
HB downtrending, 6.8 now
Agree with 1 unit of blood
Maybe related to Pradaxa
Hold Pradaxa
Previous colonoscopy showed A single non-bleeding colonic angiodysplastic lesion 06/26/19
EGD revealed white nummular lesions in esophageal mucosa. Erythematous mucosa in the antrum.
Plan for video capsule endoscopy outpatient.
Monitor H&H
-
-
Thank you for consultation and allowing me to participate in the patient's care. Please call the on call pharmacy technician GI physician during the after hours with any questions or concerns.
--- NOTE | 2024-09-11 11:28 | W.PN.HOSP.TC ---
Addendum entered and electronically signed by Laurent Swift DO 09/11/24 15:05:
Additional diagnosis
Acute blood loss anemia with baseline Iron deficiency anemia
Original Note:
Today's Communication/Plan
-
Assessment / Plan
Assessment / Plan
General: No Apparent Distress, Comfortable and Conversant
HEENT: NormoCephalic, Moist mucous membranes, Atraumatic
Respiratory: Clear and Non Labored Respirations
Cardiac: S1/S2 and Regular Rhythm; No Rub or Gallop
GI: Soft, Non Tender, Non Distended and Normal Bowel Sounds
Musculoskeletal: Significant pitting lower extremity edema bilaterally, no deformity
Skin: Warm and dry
: NO Acosta
Neuro: Awake, Alert, Nonfocal/grossly intact
Psych: Calm and Intact Judgment/Insight
Mr. Álvarez is a 84-year-old male with a medical history of HFpEF, COPD, A-fib, and morbid obesity who presented with worsening shortness of breath, weight gain, and lower extremity edema. He reports adherence with his home medication regimen.
He was found to be wheezing on initial exam. He has been admitted for treatment of COPD exacerbation and acute on chronic HFpEF.
HFpEF, acute on chronic:
- Increased Lasix dose to 80 mg IV twice daily, recorded fluid balance approximately -2 L
- Cardiology following, appreciate recommendations, adding compression wraps to lower extremities, continuing aggressive diuresis
- Afterload reduction with hydralazine 25 mg p.o. 3 times daily
- Beta-blockade with metoprolol tartrate 25 mg p.o. twice daily
Iron deficiency anemia:
-Suspect due to GI bleeding, Hemoccult positive
- Hemoglobin continues to slowly drop, down to 6.8 today, recent baseline appears to be around 9.5
- Transfusing 1 unit PRBCs
- Holding anticoagulation due to known history of colonic angiodysplastic lesions noted on endoscopy in June 2024
- Appreciate GI recommendations, will need eventual capsule endoscopy
COPD with acute exacerbation:
- Resolving, no wheezing on exam
- Continue short course of oral prednisone
- Continue scheduled breathing treatments
- Additional nebulizers as needed
A-fib:
- Currently rate controlled with metoprolol tartrate 25 mg p.o. twice daily
- Holding anticoagulation with Pradaxa due to prior GI bleeding colonic angiodysplastic lesions
ZA on CKD stage III:
- Appears to be back to baseline renal function with creatinine 1.5 today
- Will monitor with diuresis
DVT prophylaxis: SCD while Pradaxa on hold
CODE STATUS: DNR
Total time spent 40 minutes
Anticipated Discharge: 24 - 48 hours
Subjective/Interval History
-
Date of Service: September 11, 2024
Patient was seen and examined at bedside this morning. In good spirits. Said he had some trouble breathing last night which resolved with breathing treatments and supplemental oxygen via nasal cannula. Hemoglobin dropped to 6.8 this morning with
Hemoccult positive stool and small amount of blood noted on toilet paper. He is going to be transfused 1 unit PRBCs.
Objective Data
-
Labs:
Laboratory Results
09/11/24
06:04
WBC 14.4 H
Hgb 6.8 L*
Hct 23.9 L
Plt Count 264
Sodium 147 H
Potassium 4.1
Chloride 110 H
Carbon Dioxide 28
BUN 56 H
Creatinine 1.5 H
Glucose 119 H
Calcium 7.7 L
Vital Signs:
Vital Signs
Temp Pulse Resp BP Pulse Ox
97.5 F 55 22 138/64 98
09/11/24 11:12 09/11/24 11:12 09/11/24 11:12 09/11/24 11:12 09/11/24 11:12
I&O
09/10/24 09/11/24 09/12/24
06:59 06:59 06:59
Intake Total 1520 / 1520 650 / 650 0 / 0
Output Total 1550 / 1550 2175 / 2175 500 / 500
Balance -30 / -30 -1525 / -1525 -500 / -500
Review of Systems
-
History Source: Patient
All other systems: Reviewed and negative
Musculoskeletal: Reports Edema (Significant bilateral lower extremity edema with weeping)
Physical Exam
-
General: No Apparent Distress
--- NOTE | 2024-09-11 14:28 | PN.CDI ---
CDI
- -
CDI:
Physician Documentation Request
Admit Date: 09/08/24 04:12
Dear Doctor Jamison,
Clinical Indicators:
Patient admitted with acute on chronic HFpEF.
09/11 PN, 'Iron deficiency anemia:-Suspect due to GI bleeding, Hemoccult positive'
09/11 PRBCs 1 unit transfused.
Hgb/Hct trend:
09/08/24 09/11/24
06:04
Hgb 7.8 L 6.8 L*
Hct 26.6 L 23.9 L
Based on the above, could you clarify, in your progress note, which of the following is the most likely type of anemia you are evaluating, monitoring and/or treating?
Acute blood loss anemia with baseline Iron deficiency anemia
Iron deficiency anemia only
Other, please specify
Use of terms such as suspected, likely, concern for, or probable (associated with a specific diagnosis that is being evaluated, monitored, or treated as if it exists) are acceptable and can be coded in the inpatient setting, when documented at the
time of discharge.
Thank you,
RL Yin RN
CDI Specialist
available via tiger text
Please use your independent medical judgment in providing your response.
[2024-09-11] MEDS: FERRLECIT 110 MG IV (14:54)
--- NOTE | 2024-09-11 15:00 | PTCARENOTE ---
Pt received 1 unit PRBC w/o incident. VSS. 80mg IV Lasix due at 1600, given at this time per Dr Shin. Pt weaned off oxygen, 93-95% on RA. Will continue to monitor. MELGOZA. Stress incontinence noted, heavily soiled underpants removed. LLE weeping
edema noted, Cristina dressing applied. Knee high MEGAN wraps applied to Manjit LE. Pt assisted OOB to chair. Resting comfortable at this time.
[2024-09-11 16:29] LABS: Hematocrit 28.7 % (39.0-52.0); Hemoglobin 8.3 g/dL (13.0-18.0)
[2024-09-11] MEDS: LIPITOR 40 MG PO (17:17)
--- NOTE | 2024-09-11 19:30 | PTCARENOTE ---
Patient arrived from 1 Acute. AAO x 3. FALSE PASS. PERRLA. Midline. AVENDAÑO with decreased mobility in lower extremities due to +3 edema. OOB x 1 assist with no devices. Patient reeducated on importance of adhering to fluid restriction. HF videos ordered and
assigned for reinforcement. Urinal provided for frequent urination due to administration of IV Lasix. Patient oriented to room. Bed in lowest position. Call corrigan and personal belongings within reach.
[2024-09-11] MEDS: REMERON 7.5 MG PO (20:48)
[2024-09-11] MEDS: FLOMAX 0.4 MG PO (20:48)
[2024-09-11] MEDS: PROSCAR 5 MG PO (20:49)
[2024-09-11] MEDS: PROZAC 40 MG PO (20:49)
[2024-09-12 03:37] VITALS: BP 131/58
[2024-09-12 06:00] VITALS: BMI 40.9
[2024-09-12 07:34] VITALS: BP 145/55
[2024-09-12] MEDS: VENTOLIN NEBULES 2.5 MG INH ×4 (07:43→20:17)
[2024-09-12] MEDS: STRIVERDI RESPIMAT 2 PUFF INH (07:43)
[2024-09-12] MEDS: SPIRIVA RESPIMAT 2.5 MCG 2 PUFF INH (07:43)
[2024-09-12 08:03] LABS: % Basophils 0.1 % (0-2); % Eosinophils 0.6 % (0-6); % Immature Granulocytes 1.3 % (0-0.5); % Lymphocytes 9.5 % (20.5-51.1); % Neutrophils 79.5 % (42.2-75.2); Absolute Eosinophils 0.1 10^3/uL (0-0.7); Absolute Immature Granulocytes 0.2 10^3/uL (0-0.05); Absolute Lymphocytes 1.4 10^3/uL (1.2-3.4); Absolute Monocytes 1.3 10^3/uL (0.1-0.6); Absolute Neutrophils 11.8 10^3/uL (1.4-6.5); Hematocrit 25.8 % (39.0-52.0); Hemoglobin 7.6 g/dL (13.0-18.0); Mean Corp Hgb Conc. 29.5 g/dL (33.0-37.0); Mean Corpuscular Hgb 23.4 pg (27.0-31.0); Mean Corpuscular Volume 79.4 fL (80.0-94.0); Mean Platelet Volume 9.4 fL (7.4-10.4); Nucleated Red Blood Cells % 2.2 % (-); Platelet Count 272 10^3/uL (130-400); Red Blood Cell Count 3.25 10^6/uL (4.70-6.10); Red Cell Dist. Width 20.5 % (11.5-14.5); White Blood Cell Count 14.9 10^3/uL (4.8-10.8)
[2024-09-12 08:27] LABS: Blood Urea Nitrogen 54 mg/dl (9-20); Calcium 7.8 mg/dl (8.4-10.2); Carbon Dioxide 28 mmol/L (22-30); Chloride 109 mmol/L (98-107); Estimated Creatinine Clearance 53 ml/min; Glucose 83 mg/dl (70-99); Magnesium 2.6 mg/dl (1.6-2.3); Phosphorus 3.2 mg/dl (2.5-4.5); Potassium 4.1 mmol/L (3.5-5.1); Sodium 147 mmol/L (135-145); eGFR 49.56
--- NOTE | 2024-09-12 08:32 | W.PN.CD ---
Today's Communication / Plan
-
IV diuresis
Resume dabigatran once OK from bleeding perspective
Impression / Plan
-
84 year old male with history of HFpEF, permanent Afib, essential hypertension, CAD s/p stenting, CVA, gout, COPD who presents with acute HFpEF exacerbation.
Acute on chronic HFpEF:
- Cont Lasix 80mg IV BID
- follow strict IandO, fluid restrict, daily weights with dry weight goal of 127kg, follow BMP
- may need additional dose of Lasix after transfusion
- There is room for more GDMT, MRA stopped in the past for OH.
- Tele while diuresing
permanent Afib:
- Dabigatran held for anemia, resume once OK from bleeding perspective
- Depending on GI workup, may need to start considering a watchman. I explained this is not ideal but her hand may be forced.
ZA on CKD 3:
- Improving. Likely secondary to HF exacerbation/congestion
- Continue IV diuresis.
- Follow BMP
Acute Anemia:
-high risk given DOAC
-Hgb relatively stable 7.6
-Heme + stool--> GI consulted
CAD/CVA:
- Continue atorvastatin
Essential hypertension:
- Continue Metoprolol tartrate and Hydralazine
Lymphedema:
-b/l, needs eleuterio wraps
Subjective:
Feels improved breathing feels much better
PCI:
1. Codominant circulation with a long, 30% mid LAD lesion culminating in an occlusive 70% lesion (IFR = 0.65), status post successful PCI of the entire lesion (overlapping Xience Skypoint 3.0 x 28 JANETTE, 3.25 x 8 JANETTE, postdilated with a 3.0 NC
balloon) with reduction in all stenoses to 0%, maintaining TOMY-3 flow.
2. Severely elevated filling pressures (LVEDP = 24 mmHg, PCWP = 25 mmHg at 134.3 kg).
3. Moderate pulmonary hypertension, WHO group 2
Echo 06/19/2024:
Left ventricular ejection fraction is 60-65%. Normal regional wall motion.
Enlarged right ventricular size. Normal right ventricular systolic function.
Aortic valve is poorly visualized. Likely mild aortic stenosis; peak/mean
gradients 13/8 mmHg, calculated BRIONNA 1.8 cm2.
Mild tricuspid regurgitation. Estimated pulmonary artery pressure of 60-65
mmHg, assuming a right atrial pressure of 8 mmHg.
Physical Exam
Vital Signs/Labs
Vital Signs
Temp Pulse Resp BP Pulse Ox
97.9 F 68 18 145/55 94
09/12/24 07:34 09/12/24 07:44 09/12/24 07:44 09/12/24 07:34 09/12/24 07:44
09/11/24 09/12/24 09/13/24
06:59 06:59 06:59
Actual Weight 287 lb 285 lb 6 oz
09/12/24 07:11
09/12/24 07:11
Magnesium 2.6 mg/dl (1.6-2.3) H 09/12/24 07:11
09/08/24
01:25
[id number] Pept 5150
Physical Exam
Constitutional: No acute distress and Comfortable
EENT: Anicteric
Cardiovascular: Rhythm/rate is irregular
Respiratory: Respiratory effort normal and Lungs clear to auscul.
GI: Soft
Neuro/Psych: AO x 3
Data Reviewed
-
Date of Service: September 12, 2024
EKG: Tracing Personally Visualized and interpreted (af)
Echo: Report Reviewed by me
Labs: Labs Reviewed by me
[2024-09-12] MEDS: FARXIGA 10 MG PO (09:58)
[2024-09-12] MEDS: DELTASONE 40 MG PO (09:59)
[2024-09-12] MEDS: APRESOLINE 25 MG PO ×3 (09:59→22:06)
[2024-09-12] MEDS: ZYLOPRIM 100 MG PO (10:00)
[2024-09-12] MEDS: VITAMIN B-12 1000 MCG PO (10:00)
[2024-09-12] MEDS: KCL 20 MEQ PO ×2 (10:01→20:07)
[2024-09-12] MEDS: FOLVITE 1 MG PO (10:01)
[2024-09-12] MEDS: LASIX 80 MG IV ×2 (10:02→15:19)
[2024-09-12] MEDS: LOPRESSOR 25 MG PO ×2 (10:09→20:07)
[2024-09-12 10:51] VITALS: BP 127/56
--- NOTE | 2024-09-12 12:25 | CM ---
CM reviewed chart, patient seen bedside. Patient confirms he is current with [facility], update to Jenni at [facility] on patient status. CM will continue to follow for all discharge planning needs.
Plan; home with [facility] when stable
[2024-09-12 13:35] LABS: Glucose - Point of Care 181 mg/dl (70-99)
--- NOTE | 2024-09-12 14:50 | W.PN.HOSP.TC ---
Today's Communication/Plan
-
Assessment / Plan
Assessment / Plan
General: No Apparent Distress, Comfortable and Conversant
HEENT: NormoCephalic, Moist mucous membranes, Atraumatic
Respiratory: Clear and Non Labored Respirations
Cardiac: S1/S2 and Regular Rhythm; No Rub or Gallop
GI: Soft, Non Tender, Non Distended and Normal Bowel Sounds
Musculoskeletal: Lower extremity compression wraps bilaterally, no deformity
Skin: Warm and dry
: NO Acosta
Neuro: Awake, Alert, Nonfocal/grossly intact
Psych: Calm and Intact Judgment/Insight
Mr. Álvarez is a 84-year-old male with a medical history of HFpEF, COPD, A-fib, and morbid obesity who presented with worsening shortness of breath, weight gain, and lower extremity edema. He reports adherence with his home medication regimen.
He was found to be wheezing on initial exam. He has been admitted for treatment of COPD exacerbation and acute on chronic HFpEF.
HFpEF, acute on chronic:
- Continue Lasix dose to 80 mg IV twice daily, his weight is down approximately 2.5 kg this admission, recorded fluid balance approximately -1.1 L
- Cardiology following, appreciate recommendations, adding compression wraps to lower extremities, continuing aggressive diuresis
- Afterload reduction with hydralazine 25 mg p.o. 3 times daily
- Beta-blockade with metoprolol tartrate 25 mg p.o. twice daily
Iron deficiency anemia:
- Suspect due to GI bleeding, Hemoccult positive
- Was transfused 1 unit PRBCs yesterday for hemoglobin of 6.8, stool is Hemoccult positive
- Hemoglobin improved to 8.3 following transfusion PRBCs yesterday, drifted back down to 7.6 on repeat this morning
- Holding anticoagulation due to known history of colonic angiodysplastic lesions noted on endoscopy in June 2024, restart anticoagulation as able when hemoglobin stable
- Appreciate GI recommendations, will need eventual capsule endoscopy, GI has now signed off
COPD with acute exacerbation:
- Resolving, no wheezing on exam
- Continue short course of oral prednisone
- Continue scheduled breathing treatments
- Additional nebulizers as needed
A-fib:
- Currently rate controlled with metoprolol tartrate 25 mg p.o. twice daily
- Holding anticoagulation with Pradaxa due to prior GI bleeding colonic angiodysplastic lesions, restart as able, would benefit from evaluation for Watchman
ZA on CKD stage III:
- Appears to be back to baseline renal function with creatinine 1.4 today
- Will monitor with diuresis
DVT prophylaxis: SCD while Pradaxa on hold
CODE STATUS: DNR
Total time spent 40 minutes
Anticipated Discharge: > 48 hours
Subjective/Interval History
-
Date of Service: September 12, 2024
Patient was seen and examined at bedside this morning. He feels like his lower extremities are less swollen today than yesterday. He was transfused a unit of PRBCs yesterday for hemoglobin of 6.8 with posttransfusion improvement to 8.3. His
stools were heme positive. Hemoglobin has dropped again this morning to 7.6.
Objective Data
-
Labs:
Laboratory Results
09/12/24
07:11
WBC 14.9 H
Hgb 7.6 L
Hct 25.8 L
Plt Count 272
Sodium 147 H
Potassium 4.1
Chloride 109 H
Carbon Dioxide 28
BUN 54 H
Creatinine 1.4 H
Glucose 83
Calcium 7.8 L
Vital Signs:
Vital Signs
Temp Pulse Resp BP Pulse Ox
97.8 F 75 20 127/56 93
09/12/24 13:22 09/12/24 11:12 09/12/24 11:12 09/12/24 10:51 09/12/24 11:12
I&O
09/11/24 09/12/24 09/13/24
06:59 06:59 06:59
Intake Total 650 / 650 1250 / 1250
Output Total 2175 / 2175 2500 / 2500
Balance -1525 / -1525 -1250 / -1250
Review of Systems
-
History Source: Patient
All other systems: Reviewed and negative
Respiratory: Reports Trouble Breathing
Musculoskeletal: Reports Edema
Physical Exam
-
General: No Apparent Distress
[2024-09-12] MEDS: FERRLECIT 110 MG IV (14:54)
[2024-09-12 16:25] VITALS: BP 108/82
[2024-09-12] MEDS: LIPITOR 40 MG PO (18:29)
[2024-09-12 19:54] VITALS: BP 149/65
[2024-09-12] MEDS: FLOMAX 0.4 MG PO (20:07)
[2024-09-12] MEDS: PROZAC 40 MG PO (22:06)
[2024-09-12] MEDS: REMERON 7.5 MG PO (22:11)
[2024-09-12] MEDS: PROSCAR 5 MG PO (22:11)
[2024-09-12 23:32] VITALS: BP 149/73
[2024-09-13 03:18] VITALS: BP 150/72
[2024-09-13 06:00] VITALS: BMI 40.5
[2024-09-13 07:00] VITALS: BP 152/68
[2024-09-13] MEDS: VENTOLIN NEBULES 2.5 MG INH ×4 (07:40→19:56)
[2024-09-13] MEDS: STRIVERDI RESPIMAT 2 PUFF INH (07:40)
[2024-09-13] MEDS: SPIRIVA RESPIMAT 2.5 MCG 2 PUFF INH (07:40)
[2024-09-13] MEDS: VITAMIN B-12 1000 MCG PO (09:18)
[2024-09-13] MEDS: FARXIGA 10 MG PO (09:18)
[2024-09-13] MEDS: APRESOLINE 25 MG PO ×3 (09:18→21:27)
[2024-09-13] MEDS: KCL 20 MEQ PO ×2 (09:18→20:17)
[2024-09-13] MEDS: ZYLOPRIM 100 MG PO (09:19)
[2024-09-13] MEDS: LOPRESSOR 25 MG PO ×2 (09:23→20:17)
[2024-09-13] MEDS: FOLVITE 1 MG PO (09:25)
[2024-09-13] MEDS: LASIX 80 MG IV ×2 (09:25→17:48)
[2024-09-13 09:42] LABS: % Basophils 0.2 % (0-2); % Eosinophils 1.2 % (0-6); % Lymphocytes 11.8 % (20.5-51.1); % Monocytes 8.9 % (1.7-9.3); % Neutrophils 76.9 % (42.2-75.2); Absolute Eosinophils 0.1 10^3/uL (0-0.7); Absolute Immature Granulocytes 0.1 10^3/uL (0-0.05); Absolute Lymphocytes 1.4 10^3/uL (1.2-3.4); Absolute Monocytes 1.1 10^3/uL (0.1-0.6); Absolute Neutrophils 9.3 10^3/uL (1.4-6.5); Hematocrit 25.8 % (39.0-52.0); Hemoglobin 7.7 g/dL (13.0-18.0); Mean Corp Hgb Conc. 29.8 g/dL (33.0-37.0); Mean Corpuscular Hgb 24.4 pg (27.0-31.0); Mean Corpuscular Volume 81.6 fL (80.0-94.0); Mean Platelet Volume 9.4 fL (7.4-10.4); Nucleated Red Blood Cells % 0.8 % (-); Platelet Count 254 10^3/uL (130-400); Red Blood Cell Count 3.16 10^6/uL (4.70-6.10); Red Cell Dist. Width 21.4 % (11.5-14.5); White Blood Cell Count 12.1 10^3/uL (4.8-10.8)
[2024-09-13 10:04] LABS: Blood Urea Nitrogen 48 mg/dl (9-20); Carbon Dioxide 30 mmol/L (22-30); Chloride 110 mmol/L (98-107); Estimated Creatinine Clearance 53 ml/min; Glucose 86 mg/dl (70-99); Magnesium 2.7 mg/dl (1.6-2.3); Phosphorus 3.4 mg/dl (2.5-4.5); Sodium 146 mmol/L (135-145); eGFR 49.56
[2024-09-13 11:00] VITALS: BP 144/69
--- NOTE | 2024-09-13 13:44 | W.PN.CD ---
Today's Communication / Plan
-
Cont Lasix 80mg IV BID
Impression / Plan
-
84 year old male with history of HFpEF, permanent Afib, essential hypertension, CAD s/p stenting, CVA, gout, COPD who presents with acute HFpEF exacerbation.
Acute on chronic HFpEF:
-severe requiring hospitalization, IV diuresis, and close monitoring of labs/tele
-dry weight thought to be 127 kg
- Cont Lasix 80mg IV BID
permanent Afib:
- Dabigatran held for anemia, resume once OK from bleeding perspective
- Depending on GI workup, may need to start considering a watchman.
ZA on CKD 3:
- Improving. Likely secondary to HF exacerbation/congestion
- Continue IV diuresis.
- Follow BMP
Acute Anemia:
-per GI
CAD/CVA:
- Continue atorvastatin
Essential hypertension:
- Continue Metoprolol tartrate and Hydralazine
Lymphedema:
-b/l, needs eleuterio wraps
Subjective:
Feels improved breathing feels much better
PCI:
1. Codominant circulation with a long, 30% mid LAD lesion culminating in an occlusive 70% lesion (IFR = 0.65), status post successful PCI of the entire lesion (overlapping Xience Skypoint 3.0 x 28 JANETTE, 3.25 x 8 JANETTE, postdilated with a 3.0 NC
balloon) with reduction in all stenoses to 0%, maintaining TOMY-3 flow.
2. Severely elevated filling pressures (LVEDP = 24 mmHg, PCWP = 25 mmHg at 134.3 kg).
3. Moderate pulmonary hypertension, WHO group 2
Echo 06/19/2024:
Left ventricular ejection fraction is 60-65%. Normal regional wall motion.
Enlarged right ventricular size. Normal right ventricular systolic function.
Aortic valve is poorly visualized. Likely mild aortic stenosis; peak/mean
gradients 13/8 mmHg, calculated BRIONNA 1.8 cm2.
Mild tricuspid regurgitation. Estimated pulmonary artery pressure of 60-65
mmHg, assuming a right atrial pressure of 8 mmHg.
Physical Exam
Vital Signs/Labs
Vital Signs
Temp Pulse Resp BP Pulse Ox
97.5 F 64 18 144/69 95
09/13/24 11:00 09/13/24 11:04 09/13/24 11:04 09/13/24 11:00 09/13/24 11:04
09/12/24 09/13/24 09/14/24
06:59 06:59 06:59
Actual Weight 129.444 kg 128.176 kg
09/13/24 08:39
09/13/24 08:39
Magnesium 2.7 mg/dl (1.6-2.3) H 09/13/24 08:39
09/08/24
01:25
[id number] Pept 5150
Physical Exam
Constitutional: No acute distress
EENT: Moist mucous membranes
Cardiovascular: Rhythm/rate is irregular, Pedal edema present, JVD present and Systolic murmur present
Respiratory: Respiratory effort normal and Lungs clear to auscul.
Neuro/Psych: AO x 3
Data Reviewed
-
Date of Service: September 13, 2024
EKG: Other (Tele: A fib 60s)
Labs: Labs Reviewed by me
--- NOTE | 2024-09-13 14:38 | W.PN.HOSP.TC ---
Today's Communication/Plan
-
Assessment / Plan
Assessment / Plan
General: No Apparent Distress, Comfortable and Conversant
HEENT: NormoCephalic, Moist mucous membranes, Atraumatic
Respiratory: Clear and Non Labored Respirations
Cardiac: S1/S2 and Regular Rhythm; No Rub or Gallop
GI: Soft, Non Tender, Non Distended and Normal Bowel Sounds
Musculoskeletal: Lower extremity compression wraps bilaterally, no deformity
Skin: Warm and dry
: NO Acosta
Neuro: Awake, Alert, Nonfocal/grossly intact
Psych: Calm and Intact Judgment/Insight
Mr. Álvarez is a 84-year-old male with a medical history of HFpEF, COPD, A-fib, and morbid obesity who presented with worsening shortness of breath, weight gain, and lower extremity edema. He reports adherence with his home medication regimen.
He was found to be wheezing on initial exam. He has been admitted for treatment of COPD exacerbation and acute on chronic HFpEF.
HFpEF, acute on chronic:
- Diuresing effectively currently
- Continue Lasix dose to 80 mg IV twice daily, his weight is down approximately 4 kg this admission, dry weight around 127 kg
- Cardiology following, appreciate recommendations, added compression wraps to lower extremities, continuing aggressive diuresis
- Afterload reduction with hydralazine 25 mg p.o. 3 times daily
- Beta-blockade with metoprolol tartrate 25 mg p.o. twice daily
Iron deficiency anemia:
- Suspect due to GI bleeding, Hemoccult positive
- Was transfused 1 unit PRBCs yesterday for hemoglobin of 6.8, stool is Hemoccult positive
- Hemoglobin improved to 8.3 following transfusion PRBCs yesterday, drifted back down to 7.6 on repeat this morning
- Holding anticoagulation due to known history of colonic angiodysplastic lesions noted on endoscopy in June 2024, restart anticoagulation as able when hemoglobin stable
- Appreciate GI recommendations, will need eventual capsule endoscopy, GI has now signed off
COPD with acute exacerbation:
- Resolving, no wheezing on exam
- Completed short course of oral prednisone
- Continue scheduled breathing treatments
- Additional nebulizers as needed
A-fib:
- Currently rate controlled with metoprolol tartrate 25 mg p.o. twice daily
- Holding anticoagulation with Pradaxa due to prior GI bleeding colonic angiodysplastic lesions, restart as able, would benefit from evaluation for Watchman
ZA on CKD stage III:
- Appears to be back to baseline renal function with creatinine stable again at 1.4 today
- Will monitor with diuresis
DVT prophylaxis: SCD while Pradaxa on hold
CODE STATUS: DNR
Total time spent 40 minutes
Anticipated Discharge: 24 - 48 hours
Subjective/Interval History
-
Date of Service: September 13, 2024
Patient was seen and examined at bedside this morning. In good spirits. He feels more comfortable today after extensive diuresis over the past 48 hours. His weight is down approximately 4 kg since admission.
Objective Data
-
Labs:
Laboratory Results
09/13/24
08:39
WBC 12.1 H
Hgb 7.7 L
Hct 25.8 L
Plt Count 254
Sodium 146 H
Potassium 4.0
Chloride 110 H
Carbon Dioxide 30
BUN 48 H
Creatinine 1.4 H
Glucose 86
Calcium 8.0 L
Vital Signs:
Vital Signs
Temp Pulse Resp BP Pulse Ox
97.5 F 64 18 144/69 95
09/13/24 11:00 09/13/24 11:04 09/13/24 11:04 09/13/24 11:00 09/13/24 11:04
I&O
09/12/24 09/13/24 09/14/24
06:59 06:59 06:59
Intake Total 1250 / 1250 1240 / 1240
Output Total 2500 / 2500 2585 / 2585
Balance -1250 / -1250 -1345 / -1345
Review of Systems
-
History Source: Patient
All other systems: Reviewed and negative
Respiratory: Reports Trouble Breathing
Musculoskeletal: Reports Edema
Physical Exam
-
General: No Apparent Distress
[2024-09-13 15:00] VITALS: BP 135/67
[2024-09-13] MEDS: LIPITOR 40 MG PO (17:47)
[2024-09-13 18:46] VITALS: BP 133/71
[2024-09-13] MEDS: PROSCAR 5 MG PO (20:18)
[2024-09-13] MEDS: FLOMAX 0.4 MG PO (20:18)
[2024-09-13] MEDS: REMERON 7.5 MG PO (20:18)
[2024-09-13] MEDS: PROZAC 40 MG PO (21:27)
[2024-09-14] VITALS (9 sets, daily range): BP systolic 118–147; BP diastolic 51–74; PULSE 58–66; O2SAT 94–95; BMI 40.2
[2024-09-14] MEDS: TYLENOL 650 MG PO (01:43)
[2024-09-14] MEDS: SPIRIVA RESPIMAT 2.5 MCG 2 PUFF INH (07:33)
[2024-09-14] MEDS: STRIVERDI RESPIMAT 2 PUFF INH (07:35)
[2024-09-14] MEDS: VENTOLIN NEBULES 2.5 MG INH ×4 (07:35→20:12)
[2024-09-14 07:52] LABS: % Basophils 0.3 % (0-2); % Eosinophils 4.7 % (0-6); % Immature Granulocytes 0.9 % (0-0.5); % Lymphocytes 9.9 % (20.5-51.1); % Monocytes 8.2 % (1.7-9.3); Absolute Eosinophils 0.5 10^3/uL (0-0.7); Absolute Immature Granulocytes 0.1 10^3/uL (0-0.05); Absolute Lymphocytes 1.1 10^3/uL (1.2-3.4); Absolute Monocytes 0.9 10^3/uL (0.1-0.6); Absolute Neutrophils 8.2 10^3/uL (1.4-6.5); Hematocrit 26.8 % (39.0-52.0); Hemoglobin 7.9 g/dL (13.0-18.0); Mean Corp Hgb Conc. 29.5 g/dL (33.0-37.0); Mean Corpuscular Hgb 24.5 pg (27.0-31.0); Mean Platelet Volume 9.2 fL (7.4-10.4); Nucleated Red Blood Cells % 0.6 % (-); Platelet Count 242 10^3/uL (130-400); Red Blood Cell Count 3.23 10^6/uL (4.70-6.10); White Blood Cell Count 10.8 10^3/uL (4.8-10.8)
[2024-09-14 08:38] LABS: Blood Urea Nitrogen 47 mg/dl (9-20); Calcium 7.7 mg/dl (8.4-10.2); Carbon Dioxide 32 mmol/L (22-30); Chloride 108 mmol/L (98-107); Estimated Creatinine Clearance 53 ml/min; Glucose 87 mg/dl (70-99); Magnesium 2.6 mg/dl (1.6-2.3); Phosphorus 3.7 mg/dl (2.5-4.5); Potassium 3.9 mmol/L (3.5-5.1); Sodium 147 mmol/L (135-145); eGFR 49.56
[2024-09-14] MEDS: LASIX 80 MG IV ×2 (08:43→17:17)
[2024-09-14] MEDS: FOLVITE 1 MG PO (08:49)
[2024-09-14] MEDS: LOPRESSOR 25 MG PO ×2 (08:49→19:36)
[2024-09-14] MEDS: KCL 20 MEQ PO ×2 (08:49→19:36)
[2024-09-14] MEDS: APRESOLINE 25 MG PO ×3 (08:49→19:40)
[2024-09-14] MEDS: VITAMIN B-12 1000 MCG PO (08:50)
[2024-09-14] MEDS: ZYLOPRIM 100 MG PO (08:50)
[2024-09-14] MEDS: FARXIGA 10 MG PO (08:52)
[2024-09-14] MEDS: PRADAXA 150 MG PO ×2 (10:15→19:39)
--- NOTE | 2024-09-14 13:07 | W.PN.CD ---
Today's Communication / Plan
-
Cont Lasix 80mg IV BID
Impression / Plan
-
84 year old male with history of HFpEF, permanent Afib, essential hypertension, CAD s/p stenting, CVA, gout, COPD who presents with acute HFpEF exacerbation.
Acute on chronic HFpEF:
-severe requiring hospitalization, IV diuresis, and close monitoring of labs/tele
-dry weight thought to be 127 kg: he is at this weight today, but still appears volume overloaded
- Cont Lasix 80mg IV BID
permanent Afib:
- Dabigatran held for anemia, resume once OK from bleeding perspective
- Depending on GI workup, may need to start considering a watchman.
ZA on CKD 3:
- Improving. Likely secondary to HF exacerbation/congestion
- Continue IV diuresis.
- Follow BMP
Acute Anemia:
-per GI: monitoring Hgb back on pradaxa; no plans for endoscopy at this time
CAD/CVA:
- Continue atorvastatin
Essential hypertension:
- Continue Metoprolol tartrate and Hydralazine
Lymphedema:
-b/l, needs eleuterio wraps
Subjective:
Feels improved breathing feels much better
PCI:
1. Codominant circulation with a long, 30% mid LAD lesion culminating in an occlusive 70% lesion (IFR = 0.65), status post successful PCI of the entire lesion (overlapping Xience Skypoint 3.0 x 28 JANETTE, 3.25 x 8 JANETTE, postdilated with a 3.0 NC
balloon) with reduction in all stenoses to 0%, maintaining TOMY-3 flow.
2. Severely elevated filling pressures (LVEDP = 24 mmHg, PCWP = 25 mmHg at 134.3 kg).
3. Moderate pulmonary hypertension, WHO group 2
Echo 06/19/2024:
Left ventricular ejection fraction is 60-65%. Normal regional wall motion.
Enlarged right ventricular size. Normal right ventricular systolic function.
Aortic valve is poorly visualized. Likely mild aortic stenosis; peak/mean
gradients 13/8 mmHg, calculated BRIONNA 1.8 cm2.
Mild tricuspid regurgitation. Estimated pulmonary artery pressure of 60-65
mmHg, assuming a right atrial pressure of 8 mmHg.
Physical Exam
Vital Signs/Labs
Vital Signs
Temp Pulse Resp BP Pulse Ox
97.9 F 56 20 125/71 92
09/14/24 11:00 09/14/24 11:24 09/14/24 11:24 09/14/24 11:00 09/14/24 11:24
09/13/24 09/14/24 09/15/24
06:59 06:59 06:59
Actual Weight 128.176 kg 127.233 kg
09/14/24 07:13
09/14/24 07:13
Magnesium 2.6 mg/dl (1.6-2.3) H 09/14/24 07:13
09/08/24
01:25
[id number] Pept 5150
Physical Exam
Constitutional: No acute distress and Comfortable
EENT: Moist mucous membranes
Cardiovascular: Rhythm & rate is regular, Pedal edema present, JVD present and Systolic murmur present
Respiratory: Respiratory effort normal and Lungs clear to auscul.
Neuro/Psych: AO x 3
Data Reviewed
-
Date of Service: September 14, 2024
Labs: Labs Reviewed by me
--- NOTE | 2024-09-14 16:21 | W.PN.HOSP.TC ---
Today's Communication/Plan
-
Assessment / Plan
Assessment / Plan
General: No Apparent Distress, Comfortable and Conversant
HEENT: NormoCephalic, Moist mucous membranes, Atraumatic
Respiratory: Clear and Non Labored Respirations
Cardiac: S1/S2 and Regular Rhythm; No Rub or Gallop
GI: Soft, Non Tender, Non Distended and Normal Bowel Sounds
Musculoskeletal: Lower extremity compression wraps bilaterally, no deformity
Skin: Warm and dry
: NO Acosta
Neuro: Awake, Alert, Nonfocal/grossly intact
Psych: Calm and Intact Judgment/Insight
Mr. Álvarez is a 84-year-old male with a medical history of HFpEF, COPD, A-fib, and morbid obesity who presented with worsening shortness of breath, weight gain, and lower extremity edema. He reports adherence with his home medication regimen.
He was found to be wheezing on initial exam. He has been admitted for treatment of COPD exacerbation and acute on chronic HFpEF.
HFpEF, acute on chronic:
- Diuresing effectively currently
- Continue Lasix dose to 80 mg IV twice daily, his weight is down approximately 5 kg this admission, still appears volume overloaded although significantly improved
- Cardiology following, appreciate recommendations, added compression wraps to lower extremities, continuing aggressive diuresis
- Afterload reduction with hydralazine 25 mg p.o. 3 times daily
- Beta-blockade with metoprolol tartrate 25 mg p.o. twice daily
Iron deficiency anemia:
- Suspect due to GI bleeding, Hemoccult positive
- Was transfused 1 unit PRBCs on 09/11 for hemoglobin of 6.8, stool is Hemoccult positive
- Hemoglobin improved to 8.3 following transfusion PRBCs, currently remained stable around 8.0
- Restarted home Pradaxa this morning 09/14, monitor closely for bleeding/drop in hemoglobin
- Known history of colonic angiodysplastic lesions noted on endoscopy in June 2024
- Appreciate GI recommendations, will need eventual capsule endoscopy, GI has now signed off
COPD with acute exacerbation:
- Resolving, no wheezing on exam
- Completed short course of oral prednisone
- Continue scheduled breathing treatments
- Additional nebulizers as needed
A-fib:
- Currently rate controlled with metoprolol tartrate 25 mg p.o. twice daily
- Restarted anticoagulation with Pradaxa this morning 09/14, monitor for bleeding, would benefit from evaluation for Watchman
ZA on CKD stage III:
- Appears to be back to baseline renal function with creatinine stable again at 1.4 today
- Will monitor with diuresis
DVT prophylaxis: SCD while Pradaxa on hold
CODE STATUS: DNR
Total time spent 40 minutes
Anticipated Discharge: 24 - 48 hours
Subjective/Interval History
-
Date of Service: September 14, 2024
Patient was seen and examined at bedside this morning. Continues to diurese well. Breathing much more comfortably today. Weight down approximately 5 kg since admission. Restarting Pradaxa, will monitor hemoglobin.
Objective Data
-
Labs:
Laboratory Results
09/14/24
07:13
WBC 10.8
Hgb 7.9 L
Hct 26.8 L
Plt Count 242
Sodium 147 H
Potassium 3.9
Chloride 108 H
Carbon Dioxide 32 H
BUN 47 H
Creatinine 1.4 H
Glucose 87
Calcium 7.7 L
Vital Signs:
Vital Signs
Temp Pulse Resp BP Pulse Ox
97.9 F 60 18 125/71 93
09/14/24 11:00 09/14/24 15:22 09/14/24 15:22 09/14/24 11:00 09/14/24 15:22
I&O
09/13/24 09/14/24 09/15/24
06:59 06:59 06:59
Intake Total 1240 / 1240 240 / 240
Output Total 2585 / 2585 1750 / 1750 400 / 400
Balance -1345 / -1345 -1510 / -1510 -400 / -400
Review of Systems
-
History Source: Patient
All other systems: Reviewed and negative
Physical Exam
-
General: No Apparent Distress
[2024-09-14] MEDS: LIPITOR 40 MG PO (17:16)
[2024-09-14] MEDS: REMERON 7.5 MG PO (19:36)
[2024-09-14] MEDS: FLOMAX 0.4 MG PO (19:36)
[2024-09-14] MEDS: PROSCAR 5 MG PO (19:36)
[2024-09-14] MEDS: PROZAC 40 MG PO (19:40)
[2024-09-15 02:33] VITALS: BP 142/74
[2024-09-15 06:00] VITALS: BMI 40.2
[2024-09-15] MEDS: SPIRIVA RESPIMAT 2.5 MCG 2 PUFF INH (07:21)
[2024-09-15] MEDS: STRIVERDI RESPIMAT 2 PUFF INH (07:23)
[2024-09-15] MEDS: VENTOLIN NEBULES 2.5 MG INH ×4 (07:23→19:54)
[2024-09-15 07:42] VITALS: BP 127/55
[2024-09-15 07:54] LABS: % Basophils 0.2 % (0-2); % Eosinophils 3.4 % (0-6); % Immature Granulocytes 0.7 % (0-0.5); % Lymphocytes 8.3 % (20.5-51.1); % Monocytes 7.3 % (1.7-9.3); % Neutrophils 80.1 % (42.2-75.2); Absolute Eosinophils 0.4 10^3/uL (0-0.7); Absolute Immature Granulocytes 0.1 10^3/uL (0-0.05); Absolute Monocytes 0.9 10^3/uL (0.1-0.6); Absolute Neutrophils 9.6 10^3/uL (1.4-6.5); Hematocrit 27.1 % (39.0-52.0); Hemoglobin 8.1 g/dL (13.0-18.0); Mean Corp Hgb Conc. 29.9 g/dL (33.0-37.0); Mean Corpuscular Hgb 24.7 pg (27.0-31.0); Mean Corpuscular Volume 82.6 fL (80.0-94.0); Mean Platelet Volume 9.2 fL (7.4-10.4); Nucleated Red Blood Cells % 0 % (-); Platelet Count 224 10^3/uL (130-400); Red Blood Cell Count 3.28 10^6/uL (4.70-6.10); Red Cell Dist. Width 23.9 % (11.5-14.5)
[2024-09-15] MEDS: KCL 20 MEQ PO ×2 (08:08→20:12)
[2024-09-15] MEDS: FOLVITE 1 MG PO (08:08)
[2024-09-15] MEDS: FARXIGA 10 MG PO (08:08)
[2024-09-15] MEDS: VITAMIN B-12 1000 MCG PO (08:08)
[2024-09-15] MEDS: ZYLOPRIM 100 MG PO (08:08)
[2024-09-15] MEDS: PRADAXA 150 MG PO ×2 (08:08→20:12)
[2024-09-15] MEDS: LOPRESSOR 25 MG PO ×2 (08:10→20:12)
[2024-09-15] MEDS: LASIX 80 MG IV ×2 (08:10→15:44)
--- NOTE | 2024-09-15 08:11 | W.PN.CD ---
Today's Communication / Plan
-
- Continue Lasix 80 mg IV BID; patient could benefit from a significant amount of more IV diuresis (until his kidneys say otherwise).
Impression / Plan
-
84 year old male with history of HFpEF, permanent Afib, essential hypertension, CAD s/p stenting, CVA, gout, COPD who presents with acute HFpEF exacerbation.
Acute on chronic HFpEF:
-severe requiring hospitalization, IV diuresis, and close monitoring of labs/tele
-dry weight thought to be 127 kg: he is at this weight today, but still appears volume overloaded
- Continue Lasix 80 mg IV BID; patient could benefit from a significant amount of more IV diuresis (until his kidneys say otherwise).
- Continue Farxiga.
permanent Afib:
- Rate-controlled; no significant pauses.
- Continue current dose of metoprolol tartrate.
- Dabigatran was held for anemia; now resumed.
- Depending on GI workup, may need to start considering a Watchman in the future.
ZA on CKD 3:
- Renal function stable.
- Continue to monitor creatinine with IV diuresis.
Acute Anemia:
-per GI: monitoring Hgb back on pradaxa; no plans for endoscopy at this time
- Hemoglobin is stable.
CAD/CVA:
- Stable status-post JANETTE to mid LAD 06/20/2023.
- Continue atorvastatin and metoprolol tartrate.
- On Pradaxa.
Essential hypertension:
- Blood pressure fairly controlled on current medication regimen.
- Continue Metoprolol tartrate, Hydralazine, and IV Lasix.
Pulmonary hypertension:
- PASP 60-65 mmHg.
- Continue IV Lasix as above.
Lymphedema:
-b/l, needs eleuterio wraps
Mild aortic stenosis:
- Continue to monitor as outpatient.
Subjective:
No major events overnight. Shortness of breath improving.
PCI:
1. Codominant circulation with a long, 30% mid LAD lesion culminating in an occlusive 70% lesion (IFR = 0.65), status post successful PCI of the entire lesion (overlapping Xience Skypoint 3.0 x 28 JANETTE, 3.25 x 8 JANETTE, postdilated with a 3.0 NC
balloon) with reduction in all stenoses to 0%, maintaining TOMY-3 flow.
2. Severely elevated filling pressures (LVEDP = 24 mmHg, PCWP = 25 mmHg at 134.3 kg).
3. Moderate pulmonary hypertension, WHO group 2
Echo 06/19/2024:
Left ventricular ejection fraction is 60-65%. Normal regional wall motion.
Enlarged right ventricular size. Normal right ventricular systolic function.
Aortic valve is poorly visualized. Likely mild aortic stenosis; peak/mean
gradients 13/8 mmHg, calculated BRIONNA 1.8 cm2.
Mild tricuspid regurgitation. Estimated pulmonary artery pressure of 60-65
mmHg, assuming a right atrial pressure of 8 mmHg.
Physical Exam
Vital Signs/Labs
Vital Signs
Temp Pulse Resp BP Pulse Ox
97.7 F 65 16 142/74 96
09/15/24 02:33 09/15/24 07:25 09/15/24 07:25 09/15/24 02:33 09/15/24 07:25
09/14/24 09/15/24 09/16/24
06:59 06:59 06:59
Actual Weight 127.233 kg 127.233 kg
09/15/24 07:17
Magnesium 2.6 mg/dl (1.6-2.3) H 09/14/24 07:13
09/08/24
01:25
Dvt-P-Rkgtnfpuyvw Pept 5150
Physical Exam
Constitutional: No acute distress and Comfortable
EENT: Anicteric
Cardiovascular: Rhythm/rate is irregular, Pedal edema present (2-3+), Systolic murmur present (2/6) and S1S2 is normal
Respiratory: Respiratory effort normal and Wheeze Present (Mild end-expiratory wheeze)
GI: Soft
Neuro/Psych: AO x 3
Other: Skin (Warm, dry)
Data Reviewed
-
Date of Service: September 15, 2024
EKG: Report Reviewed by me (Telemetry: A-fib)
Echo: Report Reviewed by me (EF 60-65%; mild aortic stenosis; mild tricuspid regurgitation, PASP 60-65 mmHg.)
Labs: Labs Reviewed by me
[2024-09-15 08:13] LABS: Blood Urea Nitrogen 44 mg/dl (9-20); Calcium 7.4 mg/dl (8.4-10.2); Carbon Dioxide 29 mmol/L (22-30); Chloride 109 mmol/L (98-107); Estimated Creatinine Clearance 57 ml/min; Glucose 94 mg/dl (70-99); Potassium 3.7 mmol/L (3.5-5.1); Sodium 146 mmol/L (135-145); eGFR 54.17
[2024-09-15] MEDS: APRESOLINE 25 MG PO ×3 (08:18→22:40)
--- NOTE | 2024-09-15 10:37 | W.PN.HOSP.TC ---
Today's Communication/Plan
-
IV Lasix
IV SoluMedrol
Nebs
Assessment / Plan
Assessment / Plan
PE
General: No Apparent Distress, obese, Comfortable and Conversant
HEENT: NormoCephalic, Moist mucous membranes, Atraumatic
Respiratory: Crackles with expiratory wheezes
Cardiac: S1/S2 and Regular Rhythm; No Rub or Gallop
GI: Soft, Non Tender, Non Distended and Normal Bowel Sounds
Musculoskeletal: Lower extremity compression wraps bilaterally, no deformity
Skin: Warm and dry
: NO Acosta
Neuro: Awake, Alert, Nonfocal/grossly intact
Psych: Calm and Intact Judgment/Insight
Mr. Álvarez is a 84-year-old male with a medical history of HFpEF, COPD, A-fib, and morbid obesity who presented with worsening shortness of breath, weight gain, and lower extremity edema. He reports adherence with his home medication regimen.
He was found to be wheezing on initial exam. He has been admitted for treatment of COPD exacerbation and acute on chronic HFpEF.
HFpEF, acute on chronic:
Still crackles and wheezes on exam
- Continue Lasix dose to 80 mg IV twice daily, his weight is down approximately 5 kg this admission, seems to approach his dry weight
- Cardiology following, appreciate recommendations, added compression wraps to lower extremities, continuing aggressive diuresis
- Afterload reduction with hydralazine 25 mg p.o. 3 times daily
- Beta-blockade with metoprolol tartrate 25 mg p.o. twice daily
Iron deficiency anemia:
- Suspect due to GI bleeding, Hemoccult positive
- Was transfused 1 unit PRBCs on 09/11 for hemoglobin of 6.8, stool is Hemoccult positive
- Hemoglobin improved to 8.3 following transfusion PRBCs, currently remained stable around 8.0
- Restarted home Pradaxa this morning 09/14, monitor closely for bleeding/drop in hemoglobin
- Known history of colonic angiodysplastic lesions noted on endoscopy in June 2024
- Appreciate GI recommendations, will need eventual capsule endoscopy, GI has now signed off
COPD with acute exacerbation:
-Will c/w inhalation therapy, will resume steroid as he is still wheezing, he received only 3 days course of prednisone 40 mg QD.
- Continue scheduled breathing treatments
- Additional nebulizers as needed
Acute Anemia:
-per GI: monitoring Hgb back on Pradaxa; no plans for endoscopy at this time
- Hemoglobin is stable.
CAD/CVA:
- Stable status-post JANETTE to mid LAD 06/20/2023.
- Continue atorvastatin and metoprolol tartrate.
- On Pradaxa.
permanent Afib:
- Currently rate controlled with metoprolol tartrate 25 mg p.o. twice daily
- Restarted anticoagulation with Pradaxa this morning 09/14, monitor for bleeding, would benefit from evaluation for Watchman
ZA on CKD stage IIIb:
- Appears to be back to baseline renal function with creatinine stable again at 1.4 today
- Will monitor with diuresis
DVT prophylaxis: Pradaxa
Lymphedema:
-b/l, needs eleuterio wraps
Mild aortic stenosis:
- Continue to monitor as outpatient.
Obesity BMI 40
Hypernatremia
CODE STATUS: DNR
Total time spent to see the patient, examine the patient, review data and lab result, discuss treatment plan with patient, nursing staff around 55 minutes
Anticipated Discharge: > 48 hours
Subjective/Interval History
-
Date of Service: September 15, 2024
No chest pain
No sob
No abdominal pain
Objective Data
-
Labs:
Laboratory Results
09/15/24
07:17
WBC 12.0 H
Hgb 8.1 L
Hct 27.1 L
Plt Count 224
Sodium 146 H
Potassium 3.7
Chloride 109 H
Carbon Dioxide 29
BUN 44 H
Creatinine 1.3
Glucose 94
Calcium 7.4 L
Vital Signs:
Vital Signs
Temp Pulse Resp BP Pulse Ox
97.8 F 73 20 127/55 95
09/15/24 07:42 09/15/24 07:42 09/15/24 07:42 09/15/24 07:42 09/15/24 07:42
I&O
09/14/24 09/15/24 09/16/24
06:59 06:59 06:59
Intake Total 240 / 240 120 / 120
Output Total 1750 / 1750 190 / 1899
Balance -1510 / -1510 -0 / -1779
--- NOTE | 2024-09-15 10:46 | CM ---
Chart reviewed and case resource manager met with patient this am, and per patient he spoke with his physician this am and he will be at the hospital for another 1-2 days, then plan is to home with [facility] visiting nurses, referral sent to Jael, patient
states that he was at [facility] for a while and used up his skilled days.
Plan; Home with [facility] visiting nurses, update provided to Jenni [phone], at [facility].
[facility]
[phone]
[2024-09-15 11:28] VITALS: BP 134/64
[2024-09-15] MEDS: TYLENOL 650 MG PO (13:01)
[2024-09-15 15:10] VITALS: BP 145/74
[2024-09-15] MEDS: SOLU-MEDROL PF 40 MG IV (15:43)
[2024-09-15] MEDS: LIPITOR 40 MG PO (16:23)
[2024-09-15 19:31] VITALS: BP 133/65
[2024-09-15] MEDS: FLOMAX 0.4 MG PO (22:36)
[2024-09-15] MEDS: PROSCAR 5 MG PO (22:36)
[2024-09-15] MEDS: REMERON 7.5 MG PO (22:36)
[2024-09-15] MEDS: PROZAC 40 MG PO (22:40)
[2024-09-15 23:09] VITALS: BP 137/69
[2024-09-16] VITALS (7 sets, daily range): BP systolic 119–147; BP diastolic 50–78; PULSE 68; O2SAT 93; BMI 39.9
[2024-09-16] MEDS: TYLENOL 650 MG PO (03:04)
[2024-09-16] MEDS: STRIVERDI RESPIMAT 2 PUFF INH (07:57)
[2024-09-16] MEDS: VENTOLIN NEBULES 2.5 MG INH (07:57)
[2024-09-16] MEDS: SPIRIVA RESPIMAT 2.5 MCG 2 PUFF INH (07:57)
[2024-09-16 08:11] LABS: % Basophils 0.1 % (0-2); % Immature Granulocytes 0.5 % (0-0.5); % Lymphocytes 4.8 % (20.5-51.1); % Monocytes 4.9 % (1.7-9.3); % Neutrophils 89.7 % (42.2-75.2); Absolute Immature Granulocytes 0.1 10^3/uL (0-0.05); Absolute Lymphocytes 0.5 10^3/uL (1.2-3.4); Absolute Monocytes 0.5 10^3/uL (0.1-0.6); Absolute Neutrophils 9.8 10^3/uL (1.4-6.5); Blood Urea Nitrogen 44 mg/dl (9-20); Calcium 7.5 mg/dl (8.4-10.2); Carbon Dioxide 25 mmol/L (22-30); Chloride 112 mmol/L (98-107); Estimated Creatinine Clearance 52 ml/min; Glucose 113 mg/dl (70-99); Hematocrit 26.3 % (39.0-52.0); Hemoglobin 7.9 g/dL (13.0-18.0); Mean Corpuscular Hgb 24.8 pg (27.0-31.0); Mean Corpuscular Volume 82.4 fL (80.0-94.0); Mean Platelet Volume 9.5 fL (7.4-10.4); Nucleated Red Blood Cells % 0 % (-); Platelet Count 204 10^3/uL (130-400); Potassium 4.1 mmol/L (3.5-5.1); Red Blood Cell Count 3.19 10^6/uL (4.70-6.10); Red Cell Dist. Width 25.1 % (11.5-14.5); Sodium 145 mmol/L (135-145); White Blood Cell Count 10.9 10^3/uL (4.8-10.8); eGFR 49.56
--- NOTE | 2024-09-16 08:20 | W.PN.CD ---
Today's Communication / Plan
-
- Continue Lasix 80 mg IV BID.
- Continue to monitor renal function--labs pending this a.m.
Impression / Plan
-
84 year old male with history of HFpEF, permanent Afib, essential hypertension, CAD s/p stenting, CVA, gout, COPD who presents with acute HFpEF exacerbation.
Acute on chronic HFpEF:
-severe requiring hospitalization, IV diuresis, and close monitoring of labs/tele
-dry weight thought to be 127 kg: he is at this weight today, but still appears volume overloaded
- Continue Lasix 80 mg IV BID.
- Continue Farxiga.
permanent Afib:
- Rate-controlled; no significant pauses.
- Continue current dose of metoprolol tartrate.
- Dabigatran was held for anemia; now resumed.
- Depending on GI workup, may need to start considering a Watchman in the future.
ZA on CKD 3:
- Renal function stable.
- Continue to monitor renal function--labs pending this a.m.
Acute Anemia:
-per GI: monitoring Hgb back on pradaxa; no plans for endoscopy at this time
- Hemoglobin remains stable.
CAD/CVA:
- Remains stable status-post JANETTE to mid LAD 06/20/2023.
- Continue atorvastatin and metoprolol tartrate.
- On Pradaxa.
Essential hypertension:
- Blood pressure stable/controlled.
- Continue current doses of metoprolol tartrate, Hydralazine, and IV Lasix.
Pulmonary hypertension:
- PASP 60-65 mmHg.
- Continue IV Lasix.
Lymphedema:
-b/l, needs eleuterio wraps
- Continue IV Lasix.
Mild aortic stenosis:
- Continue to monitor as outpatient.
PCI:
1. Codominant circulation with a long, 30% mid LAD lesion culminating in an occlusive 70% lesion (IFR = 0.65), status post successful PCI of the entire lesion (overlapping Xience Skypoint 3.0 x 28 JANETTE, 3.25 x 8 JANETTE, postdilated with a 3.0 NC
balloon) with reduction in all stenoses to 0%, maintaining TOMY-3 flow.
2. Severely elevated filling pressures (LVEDP = 24 mmHg, PCWP = 25 mmHg at 134.3 kg).
3. Moderate pulmonary hypertension, WHO group 2
Echo 06/19/2024:
Left ventricular ejection fraction is 60-65%. Normal regional wall motion.
Enlarged right ventricular size. Normal right ventricular systolic function.
Aortic valve is poorly visualized. Likely mild aortic stenosis; peak/mean
gradients 13/8 mmHg, calculated BRIONNA 1.8 cm2.
Mild tricuspid regurgitation. Estimated pulmonary artery pressure of 60-65
mmHg, assuming a right atrial pressure of 8 mmHg.
Physical Exam
Vital Signs/Labs
Vital Signs
Temp Pulse Resp BP Pulse Ox
98.4 F 63 16 140/71 96
09/16/24 07:34 09/16/24 08:00 09/16/24 08:00 09/16/24 07:34 09/16/24 08:00
09/15/24 09/16/24 09/17/24
06:59 06:59 06:59
Actual Weight 127.233 kg 126.212 kg
09/16/24 06:56
09/16/24 06:56
Magnesium 2.6 mg/dl (1.6-2.3) H 09/14/24 07:13
09/08/24
01:25
Qbu-[id number] Pept 5150
Physical Exam
Constitutional: No acute distress and Comfortable
EENT: Anicteric
Cardiovascular: Rhythm/rate is irregular, Pedal edema present (1-2+), Systolic murmur present (2/6) and S1S2 is normal
Respiratory: Respiratory effort normal and Lungs clear to auscul.
GI: Soft
Neuro/Psych: AO x 3
Other: Skin (warm)
Data Reviewed
-
Date of Service: September 16, 2024
EKG: Tracing Personally Visualized and interpreted (Telemetry: A-fib (rate-controlled))
Labs: Labs Reviewed by me
--- NOTE | 2024-09-16 08:37 | W.PN.HOSP.TC ---
Today's Communication/Plan
-
Mirtazapine, increase dose to help with sleep
Encourage C pap use at night
Assessment / Plan
Assessment / Plan
PE
General: No Apparent Distress, obese, Comfortable and Conversant
HEENT: NormoCephalic, Moist mucous membranes, Atraumatic
Respiratory: Crackles with expiratory wheezes
Cardiac: S1/S2 and Regular Rhythm; No Rub or Gallop
GI: Soft, Non Tender, Non Distended and Normal Bowel Sounds
Musculoskeletal: Lower extremity compression wraps bilaterally, no deformity
Skin: Warm and dry
: NO Acosta
Neuro: Awake, Alert, Nonfocal/grossly intact
Psych: Calm and Intact Judgment/Insight
Mr. Álvarez is a 84-year-old male with a medical history of HFpEF, COPD, A-fib, and morbid obesity who presented with worsening shortness of breath, weight gain, and lower extremity edema. He reports adherence with his home medication regimen.
He was found to be wheezing on initial exam. He has been admitted for treatment of COPD exacerbation and acute on chronic HFpEF.
HFpEF, acute on chronic:
Still crackles and wheezes on exam
- Continue Lasix dose to 80 mg IV twice daily, his weight is down approximately 5 kg this admission, seems to approach his dry weight
- Cardiology following, appreciate recommendations, added compression wraps to lower extremities, continuing aggressive diuresis
- Afterload reduction with hydralazine 25 mg p.o. 3 times daily
- Beta-blockade with metoprolol tartrate 25 mg p.o. twice daily
# Severe obstructive sleep apnea
Non compliant with c pap
# depression with insomnia
c/w Fluoxetine
c/w Mirtazapine, increase dose to help with sleep
Iron deficiency anemia:
- Suspect due to GI bleeding, Hemoccult positive
- Was transfused 1 unit PRBCs on 09/11 for hemoglobin of 6.8, stool is Hemoccult positive
- Hemoglobin improved to 8.3 following transfusion PRBCs, currently remained stable around 8.0
- Restarted home Pradaxa this morning 09/14, monitor closely for bleeding/drop in hemoglobin
- Known history of colonic angiodysplastic lesions noted on endoscopy in June 2024
- Appreciate GI recommendations, will need eventual capsule endoscopy, GI has now signed off
COPD with acute exacerbation:
-Will c/w inhalation therapy, will resume steroid as he is still wheezing, he received only 3 days course of prednisone 40 mg QD.
- Continue scheduled breathing treatments
- Additional nebulizers as needed
Acute Anemia:
-per GI: monitoring Hgb back on Pradaxa; no plans for endoscopy at this time
- Hemoglobin is stable.
CAD/CVA:
- Stable status-post JANETTE to mid LAD 06/20/2023.
- Continue atorvastatin and metoprolol tartrate.
- On Pradaxa.
permanent Afib:
- Currently rate controlled with metoprolol tartrate 25 mg p.o. twice daily
- Restarted anticoagulation with Pradaxa this morning 09/14, monitor for bleeding, would benefit from evaluation for Watchman
ZA on CKD stage IIIb:
- Appears to be back to baseline renal function with creatinine stable again at 1.4 today
- Will monitor with diuresis
DVT prophylaxis: Pradaxa
Lymphedema:
-b/l, needs eleuterio wraps
Mild aortic stenosis:
- Continue to monitor as outpatient.
Obesity BMI 40
Hypernatremia
CODE STATUS: DNR
Total time spent to see the patient, examine the patient, review data and lab result, discuss treatment plan with patient, nursing staff around 55 minutes
Anticipated Discharge: 24 - 48 hours
Subjective/Interval History
-
Date of Service: September 16, 2024
Objective Data
-
Labs:
Laboratory Results
09/16/24
06:56
WBC 10.9 H
Hgb 7.9 L
Hct 26.3 L
Plt Count 204
Sodium 145
Potassium 4.1
Chloride 112 H
Carbon Dioxide 25
BUN 44 H
Creatinine 1.4 H
Glucose 113 H
Calcium 7.5 L
Vital Signs:
Vital Signs
Temp Pulse Resp BP Pulse Ox
98.4 F 63 16 140/71 96
09/16/24 07:34 09/16/24 08:00 09/16/24 08:00 09/16/24 07:34 09/16/24 08:00
I&O
09/15/24 09/16/24 09/17/24
06:59 06:59 06:59
Intake Total 120 / 120 1000 / 1000
Output Total 1900 / 1900 21713 / 26910
Balance -1780 / -1780 -08548 / -77952
[2024-09-16] MEDS: LOPRESSOR 25 MG PO ×2 (09:30→19:56)
[2024-09-16] MEDS: VITAMIN B-12 1000 MCG PO (09:31)
[2024-09-16] MEDS: PRADAXA 150 MG PO ×2 (09:31→19:56)
[2024-09-16] MEDS: KCL 20 MEQ PO ×2 (09:31→19:56)
[2024-09-16] MEDS: FARXIGA 10 MG PO (09:31)
[2024-09-16] MEDS: ZYLOPRIM 100 MG PO (09:31)
[2024-09-16] MEDS: FOLVITE 1 MG PO (09:32)
[2024-09-16] MEDS: APRESOLINE 25 MG PO ×3 (09:32→21:39)
[2024-09-16] MEDS: LASIX 80 MG IV ×2 (09:32→16:47)
[2024-09-16] MEDS: SOLU-MEDROL PF 40 MG IV (09:33)
--- NOTE | 2024-09-16 12:41 | CM ---
CM reviewed chart, patient seen in chair, discussed SNF vs VN, patient reports he would like to return home with VN, will provide updates to [facility] when patient stable for d/c. 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
cleaning, laundry. CM will continue to follow for all discharge planning needs.
Plan; home with [facility] VN when stable.
[2024-09-16] MEDS: LIPITOR 40 MG PO (16:48)
[2024-09-16] MEDS: FLOMAX 0.4 MG PO (21:39)
[2024-09-16] MEDS: REMERON 15 MG PO (21:39)
[2024-09-16] MEDS: KLONOPIN 0.25 MG PO (21:40)
[2024-09-16] MEDS: PROSCAR 5 MG PO (21:40)
[2024-09-16] MEDS: PROZAC 40 MG PO (21:40)
[2024-09-17] VITALS (7 sets, daily range): BP systolic 123–150; BP diastolic 54–98; PULSE 59; O2SAT 98; BMI 39.9
[2024-09-17] MEDS: FOLVITE 1 MG PO (08:23)
[2024-09-17] MEDS: VITAMIN B-12 1000 MCG PO (08:23)
[2024-09-17] MEDS: LOPRESSOR 25 MG PO ×2 (08:24→20:12)
[2024-09-17] MEDS: KCL 20 MEQ PO ×2 (08:24→20:13)
[2024-09-17] MEDS: LASIX 80 MG IV ×2 (08:24→16:35)
[2024-09-17] MEDS: ZYLOPRIM 100 MG PO (08:24)
[2024-09-17] MEDS: FARXIGA 10 MG PO (08:24)
[2024-09-17] MEDS: APRESOLINE 25 MG PO ×3 (08:24→22:10)
[2024-09-17] MEDS: PRADAXA 150 MG PO ×2 (08:24→20:12)
--- NOTE | 2024-09-17 08:24 | W.PN.CD ---
Today's Communication / Plan
-
- Currently at dry weight of ~126 kg; still with notable edema, although chronic.
- Continue Lasix 80 mg IV BID today; can transition to torsemide 80 mg PO BID tomorrow, which should be new home dose.
- Remains rate-controlled; no significant pauses (>3 seconds).
Impression / Plan
-
84 year old male with history of HFpEF, permanent Afib, essential hypertension, CAD s/p stenting, CVA, gout, COPD who presents with acute HFpEF exacerbation.
Acute on chronic HFpEF:
-severe requiring hospitalization, IV diuresis, and close monitoring of labs/tele
- Currently at dry weight of ~126 kg; still with notable edema, although chronic.
- Continue Lasix 80 mg IV BID today; can transition to torsemide 80 mg PO BID tomorrow, which should be new home dose.
- Continue Farxiga.
permanent Afib:
- Remains rate-controlled; no significant pauses (>3 seconds).
- Continue current low-dose of metoprolol tartrate.
- Dabigatran was held for anemia; now resumed.
- Depending on GI workup, may need to start considering a Watchman in the future as outpatient.
ZA on CKD 3:
- Renal function remains relatively stable.
- Continuing to monitor.
Acute Anemia:
-per GI: monitoring Hgb back on pradaxa; no plans for endoscopy at this time
- Hemoglobin relatively stable.
CAD/CVA:
- Remains stable status-post JANETTE to mid LAD 06/20/2023.
- Continue atorvastatin and metoprolol tartrate.
- On Pradaxa.
Essential hypertension:
- Blood pressure remains stable/controlled.
- Continue current doses of metoprolol tartrate, Hydralazine, and IV Lasix.
Pulmonary hypertension:
- PASP 60-65 mmHg.
-Diuretic management as above.
Lymphedema:
-b/l, needs eleuterio wraps
-Diuretic management as above.
Mild aortic stenosis:
-Will continue to monitor as outpatient.
PCI:
1. Codominant circulation with a long, 30% mid LAD lesion culminating in an occlusive 70% lesion (IFR = 0.65), status post successful PCI of the entire lesion (overlapping Xience Skypoint 3.0 x 28 JANETTE, 3.25 x 8 JANETTE, postdilated with a 3.0 NC
balloon) with reduction in all stenoses to 0%, maintaining TOMY-3 flow.
2. Severely elevated filling pressures (LVEDP = 24 mmHg, PCWP = 25 mmHg at 134.3 kg).
3. Moderate pulmonary hypertension, WHO group 2
Echo 06/19/2024:
Left ventricular ejection fraction is 60-65%. Normal regional wall motion.
Enlarged right ventricular size. Normal right ventricular systolic function.
Aortic valve is poorly visualized. Likely mild aortic stenosis; peak/mean
gradients 13/8 mmHg, calculated BRIONNA 1.8 cm2.
Mild tricuspid regurgitation. Estimated pulmonary artery pressure of 60-65
mmHg, assuming a right atrial pressure of 8 mmHg.
Physical Exam
Vital Signs/Labs
Vital Signs
Temp Pulse Resp BP Pulse Ox
98.8 F 57 18 128/54 93
09/17/24 07:24 09/17/24 07:24 09/17/24 07:24 09/17/24 07:24 09/17/24 07:24
09/16/24 09/17/24 09/18/24
06:59 06:59 06:59
Actual Weight 126.212 kg 126.1 kg
Magnesium 2.6 mg/dl (1.6-2.3) H 09/14/24 07:13
09/08/24
01:25
Tfo-A-Vourzxhrkee Pept 5150
Physical Exam
Constitutional: No acute distress and Comfortable
EENT: Anicteric
Cardiovascular: Rhythm/rate is irregular, Pedal edema present (2+), Systolic murmur present (2/6) and S1S2 is normal
Respiratory: Respiratory effort normal and Lungs clear to auscul.
GI: Soft
Neuro/Psych: AO x 3
Other: Skin (warm)
Data Reviewed
-
Date of Service: September 17, 2024
EKG: Tracing Personally Visualized and interpreted (Telemetry: A-fib)
[2024-09-17] MEDS: SOLU-MEDROL PF 40 MG IV (08:25)
[2024-09-17] MEDS: STRIVERDI RESPIMAT 2 PUFF INH (08:27)
[2024-09-17] MEDS: SPIRIVA RESPIMAT 2.5 MCG 2 PUFF INH (08:27)
[2024-09-17 08:36] LABS: % Basophils 0.1 % (0-2); % Eosinophils 0.1 % (0-6); % Immature Granulocytes 0.5 % (0-0.5); % Lymphocytes 9.5 % (20.5-51.1); % Monocytes 9.9 % (1.7-9.3); % Neutrophils 79.9 % (42.2-75.2); Absolute Lymphocytes 0.8 10^3/uL (1.2-3.4); Absolute Monocytes 0.9 10^3/uL (0.1-0.6); Hematocrit 26.4 % (39.0-52.0); Hemoglobin 7.8 g/dL (13.0-18.0); Mean Corp Hgb Conc. 29.5 g/dL (33.0-37.0); Mean Corpuscular Hgb 24.6 pg (27.0-31.0); Mean Corpuscular Volume 83.3 fL (80.0-94.0); Mean Platelet Volume 9.5 fL (7.4-10.4); Nucleated Red Blood Cells % 0 % (-); Platelet Count 203 10^3/uL (130-400); Red Blood Cell Count 3.17 10^6/uL (4.70-6.10); Red Cell Dist. Width 25.2 % (11.5-14.5); White Blood Cell Count 8.8 10^3/uL (4.8-10.8)
[2024-09-17 08:59] LABS: Blood Urea Nitrogen 49 mg/dl (9-20); Calcium 7.5 mg/dl (8.4-10.2); Carbon Dioxide 27 mmol/L (22-30); Chloride 110 mmol/L (98-107); Estimated Creatinine Clearance 49 ml/min; Glucose 86 mg/dl (70-99); Sodium 145 mmol/L (135-145); eGFR 45.62
--- NOTE | 2024-09-17 11:04 | W.PN.HOSP.TC ---
Today's Communication/Plan
-
Likely dc in AM
Assessment / Plan
Assessment / Plan
PE
General: No Apparent Distress, obese, Comfortable and Conversant
HEENT: NormoCephalic, Moist mucous membranes, Atraumatic
Respiratory: Crackles with expiratory wheezes
Cardiac: S1/S2 and Regular Rhythm; No Rub or Gallop
GI: Soft, Non Tender, Non Distended and Normal Bowel Sounds
Musculoskeletal: Lower extremity compression wraps bilaterally, no deformity
Skin: Warm and dry
: NO Acosta
Neuro: Awake, Alert, Nonfocal/grossly intact
Psych: Calm and Intact Judgment/Insight
Mr. Álvarez is a 84-year-old male with a medical history of HFpEF, COPD, A-fib, and morbid obesity who presented with worsening shortness of breath, weight gain, and lower extremity edema. He reports adherence with his home medication regimen.
He was found to be wheezing on initial exam. He has been admitted for treatment of COPD exacerbation and acute on chronic HFpEF.
HFpEF, acute on chronic:
Much less crackles and no wheezes on exam. I think he improvement after using Lasix and C pap
- Continue Lasix dose to 80 mg IV twice daily, his weight is down approximately 5 kg this admission, seems to approach his dry weight
- Cardiology following, appreciate recommendations, added compression wraps to lower extremities, continuing aggressive diuresis
- Afterload reduction with hydralazine 25 mg p.o. 3 times daily
- Beta-blockade with metoprolol tartrate 25 mg p.o. twice daily
- bradycardia over night, no pauses, k to c/w current treatment, d/w cardiology
I also d/w pulmonary for C pap/ sleep apnea. Pt had c pap but taken back due to lack of use, pt will need to call office to set up an appointment
# Severe obstructive sleep apnea
Non compliant with c pap
# depression with insomnia
c/w Fluoxetine
c/w Mirtazapine, increase dose to help with sleep
Iron deficiency anemia:
- Suspect due to GI bleeding, Hemoccult positive
- Was transfused 1 unit PRBCs on 09/11 for hemoglobin of 6.8, stool is Hemoccult positive
- Hemoglobin improved to 8.3 following transfusion PRBCs, currently remained stable around 8.0
- Restarted home Pradaxa this morning 09/14, monitor closely for bleeding/drop in hemoglobin
- Known history of colonic angiodysplastic lesions noted on endoscopy in June 2024
- Appreciate GI recommendations, will need eventual capsule endoscopy, GI has now signed off
COPD with acute exacerbation:
-Will c/w inhalation therapy, will resume steroid as he is still wheezing, he received only 3 days course of prednisone 40 mg QD.
- Continue scheduled breathing treatments
- Additional nebulizers as needed
Acute Anemia:
-per GI: monitoring Hgb back on Pradaxa; no plans for endoscopy at this time
- Hemoglobin is stable.
CAD/CVA:
- Stable status-post JANETTE to mid LAD 06/20/2023.
- Continue atorvastatin and metoprolol tartrate.
- On Pradaxa.
permanent Afib:
- Currently rate controlled with metoprolol tartrate 25 mg p.o. twice daily
- Restarted anticoagulation with Pradaxa this morning 09/14, monitor for bleeding, would benefit from evaluation for Watchman
ZA on CKD stage IIIb:
- Appears to be back to baseline renal function with creatinine stable again at 1.4 today
- Will monitor with diuresis
DVT prophylaxis: Pradaxa
Lymphedema:
-b/l, needs eleuterio wraps
Mild aortic stenosis:
- Continue to monitor as outpatient.
Obesity BMI 40
Hypernatremia
CODE STATUS: DNR
Total time spent to see the patient, examine the patient, review data and lab result, discuss treatment plan with patient, nursing staff around 55 minutes
Anticipated Discharge: Within 24 hours
Subjective/Interval History
-
Date of Service: September 17, 2024
He reports less sob and slept well
Objective Data
-
Labs:
Laboratory Results
09/17/24
07:07
WBC 8.8
Hgb 7.8 L
Hct 26.4 L
Plt Count 203
Sodium 145
Potassium 4.0
Chloride 110 H
Carbon Dioxide 27
BUN 49 H
Creatinine 1.5 H
Glucose 86
Calcium 7.5 L
Vital Signs:
Vital Signs
Temp Pulse Resp BP Pulse Ox
98.3 F 67 18 139/61 94
09/17/24 10:40 09/17/24 10:40 09/17/24 10:40 09/17/24 10:40 09/17/24 10:40
I&O
09/16/24 09/17/24 09/18/24
06:59 06:59 06:59
Intake Total 1000 / 1000 1320 / 1320
Output Total 73683 / 86321 1500 / 1500
Balance -19936 / -21759 -180 / -180
--- NOTE | 2024-09-17 11:09 | CM ---
CM reviewed chart, patient seen bedside. Plan remains return home with [facility] upon discharge. Patient reports he has a close friend who may be able to provide transport home upon d/c. CM will continue to follow for all discharge planning needs.
Plan; home with [facility] and aides
[2024-09-17] MEDS: LIPITOR 40 MG PO (16:35)
[2024-09-17] MEDS: PROZAC 40 MG PO (22:10)
[2024-09-17] MEDS: FLOMAX 0.4 MG PO (22:10)
[2024-09-17] MEDS: PROSCAR 5 MG PO (22:10)
[2024-09-17] MEDS: REMERON 15 MG PO (22:10)
[2024-09-18] VITALS (8 sets, daily range): BP systolic 108–154; BP diastolic 46–73; PULSE 2–53; O2SAT 93; BMI 40.1
--- NOTE | 2024-09-18 01:14 | PTCARENOTE ---
Patient wore cpap from about 22:30 until 00:30 and insisted on taking it off. Respiratory is aware.
[2024-09-18 07:43] LABS: Blood Urea Nitrogen 58 mg/dl (9-20); Calcium 7.6 mg/dl (8.4-10.2); Carbon Dioxide 28 mmol/L (22-30); Chloride 108 mmol/L (98-107); Estimated Creatinine Clearance 52 ml/min; Glucose 87 mg/dl (70-99); Potassium 4.3 mmol/L (3.5-5.1); Sodium 145 mmol/L (135-145); eGFR 49.56
[2024-09-18] MEDS: STRIVERDI RESPIMAT 2 PUFF INH (07:59)
[2024-09-18] MEDS: SPIRIVA RESPIMAT 2.5 MCG 2 PUFF INH (07:59)
--- NOTE | 2024-09-18 08:24 | W.PN.CD ---
Today's Communication / Plan
-
ok to discharge on current diuretic plan
will arrange chf follow up
will sign off
Impression / Plan
-
84 year old male with history of HFpEF, permanent Afib, essential hypertension, CAD s/p stenting, CVA, gout, COPD who presents with acute HFpEF exacerbation.
Acute on chronic HFpEF:
-severe requiring hospitalization, IV diuresis, and close monitoring of labs/tele
- -transitioned to torsemide 80 mg PO BID tomorrow, which should be new home dose.
- Continue Farxiga.
-hydralazine for bp control
-MRA stopped for OH in recent past/ACEI stopped in the past due to ZA. Can revisit as an op
permanent Afib:
- Remains rate-controlled; no significant pauses (>3 seconds).
- Continue current low-dose of metoprolol tartrate.
- Dabigatran was held for anemia; now resumed.
- Depending on GI workup, may need to start considering a Watchman in the future as outpatient.
ZA on CKD 3:
- Renal function remains relatively stable.
- Continuing to monitor.
Acute Anemia:
-per GI: monitoring Hgb back on pradaxa; no plans for endoscopy at this time
- Hemoglobin relatively stable.
CAD/CVA:
- Remains stable status-post JANETTE to mid LAD 06/20/2023.
- Continue atorvastatin and metoprolol tartrate.
- On Pradaxa.
Essential hypertension:
- Blood pressure remains stable/controlled.
- Continue current doses of metoprolol tartrate, Hydralazine, and IV Lasix.
Pulmonary hypertension:
- PASP 60-65 mmHg.
-Diuretic management as above.
Lymphedema:
-b/l, needs eleuterio wraps
-Diuretic management as above.
Mild aortic stenosis:
-Will continue to monitor as outpatient.
Subjective:
cannot sleep but feeling much
PCI:
1. Codominant circulation with a long, 30% mid LAD lesion culminating in an occlusive 70% lesion (IFR = 0.65), status post successful PCI of the entire lesion (overlapping Xience Skypoint 3.0 x 28 JANETTE, 3.25 x 8 JANETTE, postdilated with a 3.0 NC
balloon) with reduction in all stenoses to 0%, maintaining TOMY-3 flow.
2. Severely elevated filling pressures (LVEDP = 24 mmHg, PCWP = 25 mmHg at 134.3 kg).
3. Moderate pulmonary hypertension, WHO group 2
Echo 06/19/2024:
Left ventricular ejection fraction is 60-65%. Normal regional wall motion.
Enlarged right ventricular size. Normal right ventricular systolic function.
Aortic valve is poorly visualized. Likely mild aortic stenosis; peak/mean
gradients 13/8 mmHg, calculated BRIONNA 1.8 cm2.
Mild tricuspid regurgitation. Estimated pulmonary artery pressure of 60-65
mmHg, assuming a right atrial pressure of 8 mmHg.
Physical Exam
Vital Signs/Labs
Vital Signs
Temp Pulse Resp BP Pulse Ox
98.1 F 53 18 140/57 96
09/18/24 03:51 09/18/24 08:02 09/18/24 08:02 09/18/24 03:51 09/18/24 08:02
09/17/24 09/18/24 09/19/24
06:59 06:59 06:59
Actual Weight 278 lb 0.046 oz 279 lb 5 oz
09/17/24 07:07
09/18/24 06:40
Magnesium 2.6 mg/dl (1.6-2.3) H 09/14/24 07:13
09/08/24
01:25
Jqs-Z-Eaopamxtdal Pept 5150
Physical Exam
Constitutional: No acute distress
Cardiovascular: JVD pressure is normal, Rhythm/rate is irregular and Pedal edema present (1+ b/l)
Respiratory: Respiratory effort normal, Lungs clear to auscul., Wheeze Absent, Crackles Absent and Rhonchi Absent
Neuro/Psych: AO x 3
Data Reviewed
-
Date of Service: September 18, 2024
[2024-09-18] MEDS: PRADAXA 150 MG PO ×2 (09:11→19:35)
[2024-09-18] MEDS: DEMADEX 80 MG PO ×2 (09:12→17:07)
[2024-09-18] MEDS: APRESOLINE 25 MG PO ×3 (09:13→21:45)
[2024-09-18] MEDS: FARXIGA 10 MG PO (09:13)
[2024-09-18] MEDS: LOPRESSOR 25 MG PO ×2 (09:14→19:35)
[2024-09-18] MEDS: VITAMIN B-12 1000 MCG PO (09:17)
[2024-09-18] MEDS: FOLVITE 1 MG PO (09:17)
[2024-09-18] MEDS: KCL 20 MEQ PO ×2 (09:17→19:42)
[2024-09-18] MEDS: ZYLOPRIM 100 MG PO (09:18)
--- NOTE | 2024-09-18 09:35 | W.PN.HOSP.TC ---
Today's Communication/Plan
-
.
Assessment / Plan
Assessment / Plan
PE
General: No Apparent Distress, obese, Comfortable and Conversant
HEENT: NormoCephalic, Moist mucous membranes, Atraumatic
Respiratory: Crackles with expiratory wheezes
Cardiac: S1/S2 and Regular Rhythm; No Rub or Gallop
GI: Soft, Non Tender, Non Distended and Normal Bowel Sounds
Musculoskeletal: Lower extremity compression wraps bilaterally, no deformity
Skin: Warm and dry
: NO Acosta
Neuro: Awake, Alert, Nonfocal/grossly intact
Psych: Calm and Intact Judgment/Insight
Mr. Álvarez is a 84-year-old male with a medical history of HFpEF, COPD, A-fib, and morbid obesity who presented with worsening shortness of breath, weight gain, and lower extremity edema. He reports adherence with his home medication regimen.
He was found to be wheezing on initial exam. He has been admitted for treatment of COPD exacerbation and acute on chronic HFpEF.
HFpEF, acute on chronic:
Much less crackles and no wheezes on exam. I think he improvement after using Lasix and C pap
-s/p Lasix dose to 80 mg IV twice daily, his weight is down approximately 5 kg this admission, seems to approach his dry weight
- Cardiology following, appreciate recommendations, added compression wraps to lower extremities, continuing on Torsemide 80 mg BID from 40 mg BID.
- Afterload reduction with hydralazine 25 mg p.o. 3 times daily
- Beta-blockade with metoprolol tartrate 25 mg p.o. twice daily
- bradycardia over night, no pauses, ok to c/w current treatment, d/w cardiology
# Severe obstructive sleep apnea
Non compliant with c pap
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
after reviewing options, seems pt will benefit from OP sleep study. Pt is motivated to do that
# depression with insomnia
c/w Fluoxetine
c/w Mirtazapine, increased dose to help with sleep to 15 mg, was 7.5 mg here
Iron deficiency anemia:
- Suspect due to GI bleeding, Hemoccult positive
- Was transfused 1 unit PRBCs on 09/11 for hemoglobin of 6.8, stool is Hemoccult positive
- Hemoglobin improved to 8.3 following transfusion PRBCs, currently remained stable around 8.0
- Restarted home Pradaxa this morning 09/14, monitor closely for bleeding/drop in hemoglobin
- Known history of colonic angiodysplastic lesions noted on endoscopy in June 2024
- Appreciate GI recommendations, will need eventual capsule endoscopy, GI has now signed off
COPD with acute exacerbation:
-Will c/w inhalation therapy, will resume steroid as he is still wheezing, he received only 3 days course of prednisone 40 mg QD.
- Continue scheduled breathing treatments
- Additional nebulizers as needed
Acute Anemia:
-per GI: monitoring Hgb back on Pradaxa; no plans for endoscopy at this time
- Hemoglobin is stable.
CAD/CVA:
- Stable status-post JANETTE to mid LAD 06/20/2023.
- Continue atorvastatin and metoprolol tartrate.
- On Pradaxa.
permanent Afib:
- Currently rate controlled with metoprolol tartrate 25 mg p.o. twice daily
- Restarted anticoagulation with Pradaxa this morning 09/14, monitor for bleeding, would benefit from evaluation for Watchman
ZA on CKD stage IIIb:
- Appears to be back to baseline renal function with creatinine stable again at 1.4 today
- Will monitor with diuresis
DVT prophylaxis: Pradaxa
Lymphedema:
-b/l, needs eleuterio wraps
Mild aortic stenosis:
- Continue to monitor as outpatient.
Obesity BMI 40
Hypernatremia
CODE STATUS: DNR
Total time spent to see the patient, examine the patient, review data and lab result, discuss treatment plan with patient, pulmonary service , nursing staff around 55 minutes
Anticipated Discharge: Within 24 hours
Subjective/Interval History
-
Date of Service: September 18, 2024
No sob
No chest pain
Objective Data
-
Labs:
Laboratory Results
09/18/24
06:40
Sodium 145
Potassium 4.3
Chloride 108 H
Carbon Dioxide 28
BUN 58 H
Creatinine 1.4 H
Glucose 87
Calcium 7.6 L
Vital Signs:
Vital Signs
Temp Pulse Resp BP Pulse Ox
97.6 F 53 18 133/72 96
09/18/24 07:00 09/18/24 08:02 09/18/24 08:02 09/18/24 07:00 09/18/24 08:02
I&O
09/17/24 09/18/24 09/19/24
06:59 06:59 06:59
Intake Total 1320 / 1320 1200 / 1200
Output Total 1500 / 1500 2200 / 2200 225 / 225
Balance -180 / -180 -1000 / -1000 -225 / -225
--- NOTE | 2024-09-18 12:22 | CM ---
CM reviewed chart, patient seen bedside. Patient reports his friend will transport him home tomorrow morning. IMM reviewed, signed, placed in chart. CM will update [facility] on discharge plan. CM will continue to follow for all discharge planning
needs.
Plan; discharge home tomorrow, friend to transport, [facility], private caregivers
[facility]
[2024-09-18] MEDS: LIPITOR 40 MG PO (17:06)
[2024-09-18] MEDS: REMERON 15 MG PO (21:45)
[2024-09-18] MEDS: FLOMAX 0.4 MG PO (21:45)
[2024-09-18] MEDS: PROSCAR 5 MG PO (21:46)
[2024-09-18] MEDS: PROZAC 40 MG PO (21:46)
[2024-09-19 02:52] VITALS: BP 144/53
[2024-09-19 05:35] VITALS: BMI 39.7
[2024-09-19 07:00] VITALS: BP 116/47
[2024-09-19] MEDS: SPIRIVA RESPIMAT 2.5 MCG 2 PUFF INH (07:09)
[2024-09-19] MEDS: STRIVERDI RESPIMAT 2 PUFF INH (07:09)
[2024-09-19] MEDS: KCL 20 MEQ PO (07:52)
[2024-09-19] MEDS: VITAMIN B-12 1000 MCG PO (07:52)
[2024-09-19] MEDS: DEMADEX 80 MG PO (07:52)
[2024-09-19] MEDS: APRESOLINE 25 MG PO (07:52)
[2024-09-19] MEDS: FARXIGA 10 MG PO (07:52)
[2024-09-19] MEDS: FOLVITE 1 MG PO (07:52)
[2024-09-19] MEDS: PRADAXA 150 MG PO (07:53)
[2024-09-19] MEDS: LOPRESSOR 25 MG PO (07:53)
[2024-09-19] MEDS: ZYLOPRIM 100 MG PO (07:53)
--- NOTE | 2024-09-19 08:54 | W.PN.HOSP.TC ---
Today's Communication/Plan
-
dc
Assessment / Plan
Assessment / Plan
PE
General: No Apparent Distress, obese, Comfortable and Conversant
HEENT: NormoCephalic, Moist mucous membranes, Atraumatic
Respiratory: Crackles with expiratory wheezes
Cardiac: S1/S2 and Regular Rhythm; No Rub or Gallop
GI: Soft, Non Tender, Non Distended and Normal Bowel Sounds
Musculoskeletal: Lower extremity compression wraps bilaterally, no deformity
Skin: Warm and dry
: NO Acosta
Neuro: Awake, Alert, Nonfocal/grossly intact
Psych: Calm and Intact Judgment/Insight
Mr. Álvarez is a 84-year-old male with a medical history of HFpEF, COPD, A-fib, and morbid obesity who presented with worsening shortness of breath, weight gain, and lower extremity edema. He reports adherence with his home medication regimen.
He was found to be wheezing on initial exam. He has been admitted for treatment of COPD exacerbation and acute on chronic HFpEF.
HFpEF, acute on chronic:
resolved
now on Torsemide
# Severe obstructive sleep apnea
Non compliant with c pap
I had discussion with pulmonary doctor phone counselor
after reviewing options, seems pt will benefit from OP sleep study. Pt is motivated to do that
# depression with insomnia
c/w Fluoxetine
c/w Mirtazapine, increased dose to help with sleep
Iron deficiency anemia:
- Suspect due to GI bleeding, Hemoccult positive
- Was transfused 1 unit PRBCs on 09/11 for hemoglobin of 6.8, stool is Hemoccult positive
- Hemoglobin improved to 8.3 following transfusion PRBCs, currently remained stable around 8.0
- Restarted home Pradaxa this morning 09/14, monitor closely for bleeding/drop in hemoglobin
- Known history of colonic angiodysplastic lesions noted on endoscopy in June 2024
- Appreciate GI recommendations, will need eventual capsule endoscopy, GI has now signed off
COPD with acute exacerbation:
-Will c/w inhalation therapy, will resume steroid as he is still wheezing, he received only 3 days course of prednisone 40 mg QD.
- Continue scheduled breathing treatments
- Additional nebulizers as needed
Acute Anemia:
-per GI: monitoring Hgb back on Pradaxa; no plans for endoscopy at this time
- Hemoglobin is stable.
CAD/CVA:
- Stable status-post JANETTE to mid LAD 06/20/2023.
- Continue atorvastatin and metoprolol tartrate.
- On Pradaxa.
permanent Afib:
- Currently rate controlled with metoprolol tartrate 25 mg p.o. twice daily
- Restarted anticoagulation with Pradaxa this morning 09/14, monitor for bleeding, would benefit from evaluation for Watchman
ZA on CKD stage IIIb:
- Appears to be back to baseline renal function with creatinine stable again at 1.4 today
- Will monitor with diuresis
DVT prophylaxis: Pradaxa
Lymphedema:
-b/l, needs eleuterio wraps
Mild aortic stenosis:
- Continue to monitor as outpatient.
Obesity BMI 40
Hypernatremia
CODE STATUS: DNR
Total discharge time spent to see the patient, examine the patient, review data and lab result, discuss discharge plan with patient, nursing staff around 65 minutes
Anticipated Discharge: Today
Subjective/Interval History
-
Date of Service: September 19, 2024
Doing well
Tried C pap one hour but felt mask was not fitting
No chest pain
Reports breathing is ( back to normal)
Objective Data
-
Vital Signs:
Vital Signs
Temp Pulse Resp BP Pulse Ox
97.8 F 65 18 116/47 93
09/19/24 07:00 09/19/24 07:53 09/19/24 07:16 09/19/24 07:00 09/19/24 07:16
I&O
09/18/24 09/19/24 09/20/24
06:59 06:59 06:59
Intake Total 1200 / 1200 360 / 360
Output Total 2200 / 2200 2875 / 2875
Balance -1000 / -1000 -2515 / -2515
--- NOTE | 2024-09-19 09:17 | PTCARENOTE ---
Patient for d/c today. D/C discussed with Dr. Garay. Patient O2 sat 93% on RA, VSS. Patient denies SOB with exertion and at rest. Weight down ~3lbs since yesterday. Overall patient feels ready for d/c, states ride will be here at 9am. IV access
removed. patient monitor removed. HF teaching given with d/c paperwork. Patient without questions, anxious to leave. All belongings accounted for at time of d/c. Patient leaving by with volunteer escort.
--- NOTE | 2024-09-19 11:22 | CM ---
CM reviewed chart, patient discharge home with Jael AGUIRRE. Patient friend to transport home. Update to Lenore at [facility] with patient discharge. CM will continue to follow for all discharge planning needs.
Plan; home with Jael AGUIRRE
Jael AGUIRRE
--- NOTE | 2024-09-19 13:34 | W.DCSUMMARY ---
Discharge Summary
Discharge Data
Date of Admission: 09/08/24
Date of Discharge: 09/19/24
-
Pending Results: No
Hospital Course
84 years old male presented with history of weight gain, increasing peripheral edema and exertional shortness of breath. Patient was diagnosed with acute on chronic heart failure with a preserved ejection fraction. He was evaluated by
children's lunchroom supervisor. Patient received intravenous diuretic therapy with furosemide. He started to improve slowly with losing weight and decreasing edema. Patient has history of chronic kidney disease. His kidney function is stabilized with creatinine
around 1.5 upon discharge. Patient was noted to have untreated obstructive sleep apnea. He reported he had positive study but could not tolerate CPAP. Patient was counseled at length about the importance of treating sleep apnea. He was given
instructions to follow-up with pulmonary service in the outpatient setting for better testing and evaluation. Patient was noted to have bradycardia without significant pauses. Wood Gouger recommended to continue rate control medications. He was
discharged on increasing dose of torsemide from 40 mg twice a day to 80 mg twice a day. Patient remained hemodynamically stable and was evaluated by physical therapy. Recommendation to do home health services. Patient was discharged in stable
condition.
Discharge Plan
-
Patient Disposition: Home with Home Care
Discharge Diagnosis/Procedures: Acute on chronic HFpEF:
Untreated obstructive sleep apnea
A fib
Diet: Low Sodium
Instructions: *CBC Heart Failure Instructions
Referrals:
Gisela Blackwell NP [Specified Professional Personl] - 10/03/24 9:40 am
Rajiv Pavon MD [Family Provider] -
Tommy Barth MD [Active] - in one to two weeks (make an appointment for sleep apnea )
Prescriptions:
New
torsemide 20 mg Tablet
80 mg PO BID@0800,1600 Qty: 60 0RF
mirtazapine 15 mg Tablet
15 mg PO HS Qty: 30 0RF
Continued
atorvastatin 40 MG tablet
40 mg PO QPM
dabigatran etexilate [Pradaxa] 150 MG capsule
150 mg PO BID
tamsulosin 0.4 MG capsule
0.4 mg PO HS
finasteride 5 MG tablet
5 mg PO HS
metoprolol tartrate 25 MG tablet
25 mg PO BID
fluoxetine [Prozac] 40 MG capsule
40 mg PO HS
folic acid 1 mg Tablet
1 mg PO DAILY
hydralazine 25 mg Tablet
25 mg PO TID Qty: 1 0RF
umeclidinium-vilanterol [Anoro Ellipta] 62.5-25 mcg/actuation Blister With Device
1 inh INHALATION R DAILY
cyanocobalamin (vitamin B-12) 1,000 mcg tablet extended release
1,000 mcg PO DAILY
albuterol sulfate 2.5 mg /3 mL (0.083 %) solution for nebulization
2.5 mg inhalation R QIDPRN PRN (Reason: sob)
allopurinol 100 mg tablet
100 mg PO DAILY
potassium chloride 20 mEq tablet,ER particles/crystals
20 meq PO BID
dapagliflozin propanediol [Farxiga] 10 mg tablet
10 mg PO DAILY
albuterol sulfate [Ventolin HFA] 90 mcg/actuation Hfa Aerosol Inhaler
1 puff INHALATION R Q4HPRN PRN (Reason: wheeze/SOB)
clopidogrel [Plavix] 75 mg Tablet
75 mg PO DAILY
Discontinued
mirtazapine 15 mg Tablet
15 mg PO HS
Rx Instructions:
stop 45mg
torsemide 20 mg tablet
40 mg PO BID
Discharge Orders:
Discharge Patient (As Directed); Ordered 09/19/24
Ordered By: Hussein Garay
Discharge Date and Time
Discharge Date/Time: 09/19/24 11:43
Print Language: NIUEAN
== END 2024-09-19 11:43 | disposition home health service (06) | DRG 291 ==
LOC: 4 WEST ACU 04:12
PROVIDERS: Internal Medicine; ADMITTING PHYSICIAN Hospitalist; ATTENDING PHYSICIAN Internal Medicine; CONSULT PHYSICIAN Internal Medicine; CONSULT PHYSICIAN Internal Medicine Gastroenterology; EMERGENCY PHYSICIAN Emergency Medicine; FAMILY PHYSICIAN Internal Medicine
PROC: 30233N1 Transfusion of Nonautologous Red Blood Cells into Peripheral Vein, Percutaneous Approach (ICD-10-PCS; 2024-09-11)
PROC: 5A09357 Assistance with Respiratory Ventilation, Less than 24 Consecutive Hours, Continuous Positive Airway Pressure (ICD-10-PCS; 2024-09-16)
DX: I13.0 Hypertensive heart and chronic kidney disease with heart failure and stage 1 through stage 4 chronic kidney disease, or unspecified chronic kidney disease (principal); I50.33 Acute on chronic diastolic (congestive) heart failure; I48.21 Permanent atrial fibrillation; J44.1 Chronic obstructive pulmonary disease with (acute) exacerbation; E87.0 Hyperosmolality and hypernatremia; D62 Acute posthemorrhagic anemia; Z68.41 Body mass index [BMI] 40.0-44.9, adult; N17.9 Acute kidney failure, unspecified; N18.30 Chronic kidney disease, stage 3 unspecified; M51.369 Other intervertebral disc degeneration, lumbar region without mention of lumbar back pain or lower extremity pain; I25.10 Atherosclerotic heart disease of native coronary artery without angina pectoris; M10.9 Gout, unspecified; E66.01 Morbid (severe) obesity due to excess calories; I27.22 Pulmonary hypertension due to left heart disease; D50.9 Iron deficiency anemia, unspecified; K55.20 Angiodysplasia of colon without hemorrhage; K44.9 Diaphragmatic hernia without obstruction or gangrene; K64.8 Other hemorrhoids; I89.0 Lymphedema, not elsewhere classified; F41.9 Anxiety disorder, unspecified; F32.A Depression, unspecified; G47.33 Obstructive sleep apnea (adult) (pediatric); G47.00 Insomnia, unspecified; E61.1 Iron deficiency; I27.81 Cor pulmonale (chronic); E78.00 Pure hypercholesterolemia, unspecified; N40.0 Benign prostatic hyperplasia without lower urinary tract symptoms; Z66 Do not resuscitate; Z95.5 Presence of coronary angioplasty implant and graft; Z87.891 Personal history of nicotine dependence; Z98.1 Arthrodesis status; Z79.02 Long term (current) use of antithrombotics/antiplatelets; Z86.73 Personal history of transient ischemic attack (TIA), and cerebral infarction without residual deficits; Z86.0100 Personal history of colon polyps, unspecified; Z87.19 Personal history of other diseases of the digestive system; Z91.199 Patient's noncompliance with other medical treatment and regimen due to unspecified reason; Z79.84 Long term (current) use of oral hypoglycemic drugs
CPT/HCPCS: 71046; 80048; 80053; 82962; 83036; 83735; 83880; 84100; 84484; 85014; 85018; 85025; 85027; 86850; 86900; 86901; 86920; 93005; 94640; 94660; 96374; 97116; 97162; 97166; 97530; 97535; 99285; J2916; P9016

== ENCOUNTER 2024-09-24 02:57 | Inpatient (IN) | payer MEDICARE, SELFPAY ==
[2024-09-23 20:52] VITALS: BP 136/75
[2024-09-23 21:16] LABS: % Basophils 0.1 % (0-2); % Eosinophils 0.7 % (0-6); % Immature Granulocytes 0.6 % (0-0.5); % Lymphocytes 5.5 % (20.5-51.1); % Monocytes 6.9 % (1.7-9.3); % Neutrophils 86.2 % (42.2-75.2); Absolute Eosinophils 0.1 10^3/uL (0-0.7); Absolute Immature Granulocytes 0.1 10^3/uL (0-0.05); Absolute Lymphocytes 0.8 10^3/uL (1.2-3.4); Absolute Neutrophils 12.8 10^3/uL (1.4-6.5); Hemoglobin 8.8 g/dL (13.0-18.0); Mean Corp Hgb Conc. 29.3 g/dL (33.0-37.0); Mean Corpuscular Hgb 24.5 pg (27.0-31.0); Mean Corpuscular Volume 83.6 fL (80.0-94.0); Mean Platelet Volume 9.6 fL (7.4-10.4); Nucleated Red Blood Cells % 0 % (-); Platelet Count 273 10^3/uL (130-400); Red Blood Cell Count 3.59 10^6/uL (4.70-6.10); Red Cell Dist. Width 24.3 % (11.5-14.5); White Blood Cell Count 14.9 10^3/uL (4.8-10.8)
[2024-09-23 21:23] LABS: ALT (SGPT) 18 U/L (0-50); AST (SGOT) 22 U/L (17-59); Albumin 4.2 g/dl (3.5-5.0); Alkaline Phosphatase 66 U/L (38-126); Blood Urea Nitrogen 58 mg/dl (9-20); Calcium 7.2 mg/dl (8.4-10.2); Carbon Dioxide 25 mmol/L (22-30); Chloride 108 mmol/L (98-107); Glucose 102 mg/dl (70-99); Potassium 4.2 mmol/L (3.5-5.1); Sodium 143 mmol/L (135-145); Total Bilirubin 0.7 mg/dl (0.2-1.3); Total Protein 7.3 g/dl (6.3-8.2); eGFR 36.66
[2024-09-23 21:28] LABS: Anisocytosis 1+; Normal RBC Morphology No
[2024-09-23 21:29] LABS: Macrocytosis 1+
[2024-09-23 21:30] LABS: NT-proBNP 5810 pg/ml
[2024-09-23 21:34] LABS: Hypochromasia 1+; Polychromasia Slight
[2024-09-23 21:35] LABS: Ovalocytes 1+
[2024-09-23 23:41] VITALS: BP 162/80
[2024-09-23 23:43] VITALS: BMI 41.4
[2024-09-24] VITALS (14 sets, daily range): BP systolic 124–159; BP diastolic 51–132; BMI 41.4; BMI 40.8
[2024-09-24] MEDS: LASIX 80 MG IV ×3 (00:26→15:26)
--- NOTE | 2024-09-24 00:42 | ED.GENMED ---
History of Present Illness
General
Chief Complaint: Breathing Problem
Source: patient
Exam Limitations: none
Time Seen by Provider: 09/24/24 00:12
History of Present Illness
History of Present Illness:
Patient complaining of weight gain increase shortness of breath since his discharge 4 days ago. Has not changed anything at home. No fever no pleuritic pain no other complaints. Symptoms are moderate in nature
Past History
Past History
ED Past Medical History: Arrthythmia (Paroxysmal atrial fibrillation), CAD, CHF, COPD, CVA, HTN, Hypercholesterolemia and Other (CKD)
ED Past Surgical History: Cardiac and Orthopedic (Resection of a thoracic spine lesion and spinal fusion)
Social History
Tobacco: Former smoker
Alcohol: None
Drug: None
Personal:
Living: alone
Employment: Retired
Family History
Family History: Other (Noncontributory)
Review of Systems
Review of Systems
All Other Systems: Not applicable
Constitutional: Reports weight gain; Denies fever
Respiratory: Reports trouble breathing; Denies cough
Cardiac: Reports no symptoms
Phy Exam
Physical Exam
Physical Exam:
GENERAL: Alert and oriented. Chronically ill-appearing. Mildly tachypneic at rest.
EYE: Orbits normal.
NECK: Supple, no significant adenopathy.
ENT: Pharynx without erythema
CARDIAC: Mildly irregular
LUNGS: Rales left greater than right base with some mild expiratory wheeze
ABDOMEN: Soft, without focal tenderness or distention
NEUROLOGICAL: Alert and oriented , grossly non-focal
SKIN: Warm and dry, no rash or lesion, no discoloration, skin intact.
MUSCULOSKELETAL: Significant bilateral lower extremity pitting edema
PSYCH: Normal and appropriate interaction.
Scores
Heart Failure Risk
Heart Failure Risk Score: Yes
History of Stroke or TIA: No
History of intubation for respiratory distress: No
Heart rate on ED arrival >/= 110: No
SaO2 <90% on arrival on room air: No
HR >/=110 during 3min walk test (or too ill to perform test): Yes
ECG has acute ischemic changes: No
Urea >/=12mmol/L (BUN 33.6mg/dL): Yes
Serum CO2>/=35mmol/L: No
Troponin I or T elevated to [place] Level (0.4mg/dL): No
NT-proBNP >/=5,000ng/L (5,000pg/ml): Yes
HF Risk Score: 4
Admission Status: HIGH RISK 26.1% Consider SNF treatment or admission to hospital
Course
Orders/Labs/Results
Orders:
Orders
09/23/24 20:56
Electrocardiogram (*1) Urgent
Reason for Study: Shortness of Breath
09/23/24 20:57
EKG- Treatment ONCE
09/23/24 21:03
Complete Blood Count/With Diff Urgent
Comprehensive Metabolic Panel Urgent
NT-proBNP Urgent
09/24/24 00:18
CXR Port [CR Chest Portable - 1 View] Urgent
Comment:
Reason For Exam: sob
Reason Study Needs to be Portable: Patient Unstable
09/24/24 00:21
Furosemide [Lasix] 80 mg IV NOW STA
Abnormal Lab Results
09/23/24
21:03
WBC 14.9 H 10^3/uL
(4.8-10.8)
RBC 3.59 L 10^6/uL
(4.70-6.10)
Hgb 8.8 L g/dL
(13.0-18.0)
Hct 30.0 L %
(39.0-52.0)
MCH 24.5 L pg
(27.0-31.0)
MCHC 29.3 L g/dL
(33.0-37.0)
RDW 24.3 H %
(11.5-14.5)
Abs Immat Gran (auto) 0.1 H 10^3/uL
(0-0.05)
Absolute Neuts (auto) 12.8 H 10^3/uL
(1.4-6.5)
Absolute Lymphs (auto) 0.8 L 10^3/uL
(1.2-3.4)
Absolute Monos (auto) 1.0 H 10^3/uL
(0.1-0.6)
Immature Gran % 0.6 H %
(0-0.5)
Neutrophils % 86.2 H %
(42.2-75.2)
Lymphocytes % 5.5 L %
(20.5-51.1)
Chloride 108 H mmol/L
(98-107)
BUN 58 H mg/dl
(9-20)
Creatinine 1.8 H mg/dL
(0.7-1.3)
Glucose 102 H mg/dl
(70-99)
Calcium 7.2 L mg/dl
(8.4-10.2)
09/23/24 21:03
09/23/24 21:03
Vital Signs
Initial and Last Documented VS:
Initial Vital Signs
Temp Pulse Resp BP Pulse Ox
98 F 78 20 136/75 93
09/23/24 20:52 09/23/24 20:52 09/23/24 20:52 09/23/24 20:52 09/23/24 20:52
Last Documented Vital Signs
Temp Pulse Resp BP Pulse Ox
98 F 64 20 151/61 95
09/23/24 20:52 09/24/24 00:26 09/23/24 23:41 09/24/24 00:26 09/23/24 23:49
MDM/Problems Addressed
Differential Diagnosis Includes:
Patient with 5.5 kg weight gain over the last 4 days. Significant lower extremity edema. All consistent with CHF. Balancing this with his renal function.
*Radiology
Radiology exam reviewed: preliminary read by ED provider (Unchanged. CHF.)
*Pulse Oximetry
Patient hypoxic: no
*EKG
Interpreted by ED Provider?: Yes
Interpretation: abnormal
Comparison EKG: no changes
Heart Rate: 70
Rate: normal
Rhythm: a-fib
Mo[place]: left axis deviation
Interval: normal interval
QRS Pattern: normal QRS
Ischemia: non-specific ST changes
*Social Work Manager Interpretation
Rate: normal
Interpretation: abnormal
Heart Rate: 74
Rhythm: a-fib
*Critical Care Note
Total Time (30-74mins, 75-104mins- exclusive of procedures): Not Applicable
Data Reviewed
Review of Other/Old Records Reveals: Labs, Records, Radiology Studies, Testing and Discharge Summary
ED Attending Note
-
Portions of this chart may have been created with voice recognition software.� Occasional wrong word or��sound alike� substitutions may have occurred due to the inherent limitations of voice recognition software.
Discharge Plan
Departure
Patient Disposition: Admit
Date of Disposition: 09/24/24
Time of Disposition: 00:45
Presentation/result/management discussed w/ accepting MD/DO: Hospitalist
Discharge Problem:
CHF
Prescriptions:
No Action
atorvastatin 40 MG tablet
40 mg PO QPM
dabigatran etexilate [Pradaxa] 150 MG capsule
150 mg PO BID
tamsulosin 0.4 MG capsule
0.4 mg PO HS
finasteride 5 MG tablet
5 mg PO HS
metoprolol tartrate 25 MG tablet
25 mg PO BID
fluoxetine [Prozac] 40 MG capsule
40 mg PO HS
folic acid 1 mg Tablet
1 mg PO DAILY
hydralazine 25 mg Tablet
25 mg PO TID Qty: 1 0RF
umeclidinium-vilanterol [Anoro Ellipta] 62.5-25 mcg/actuation Blister With Device
1 inh INHALATION R DAILY
cyanocobalamin (vitamin B-12) 1,000 mcg tablet extended release
1,000 mcg PO DAILY
albuterol sulfate 2.5 mg /3 mL (0.083 %) solution for nebulization
2.5 mg inhalation R QIDPRN PRN (Reason: sob)
allopurinol 100 mg tablet
100 mg PO DAILY
potassium chloride 20 mEq tablet,ER particles/crystals
20 meq PO BID
dapagliflozin propanediol [Farxiga] 10 mg tablet
10 mg PO DAILY
albuterol sulfate [Ventolin HFA] 90 mcg/actuation Hfa Aerosol Inhaler
1 puff INHALATION R Q4HPRN PRN (Reason: wheeze/SOB)
clopidogrel [Plavix] 75 mg Tablet
75 mg PO DAILY
torsemide 20 mg Tablet
80 mg PO BID@0800,1600 Qty: 60 0RF
mirtazapine 15 mg Tablet
15 mg PO HS Qty: 30 0RF
Referrals:
Rajiv Pavon MD [Family Provider] -
Interventions
Interventions:
*Risk Screen - Suicide Last Done: 09/23/24 20:55
*General Assessment Last Done: 09/23/24 20:55
*Neglect/Abuse Screening Last Done: 09/23/24 20:55
*ED- Fall Risk Assessment Last Done: 09/23/24 23:53
*ED COVID-19 Vaccine History Last Done: 09/23/24 20:55
ED- Cardiac Assessment Last Done: 09/23/24 23:45
ED- Pulmonary Assessment Last Done: 09/23/24 23:49
Discharge Date and Time
Print Language: CITIZEN [place]
--- NOTE | 2024-09-24 02:15 | HPS.HSE ---
Family Physician
-
Family Physician: Rajiv Pavon
Chief Complaint
-
SOB/Wheezing
History of Present Illness
84yo M with PMH CAD s/p Stent, HTN/HLD, HFpEF (TTE 06/2024 wtih EF 60-65%, no WMA, Mild (AV Area 1.8 cm^2), PaSP 60-65 mmHg), Chronic Lymphedema, Atrial Fibrillation on Pradaxa, MARIXA (not no cpap), COPD (Former Tobacco abuse), Remote ETOH abuse,
Lumbar DDD, Gout who presetns to ER wtih SOB x Sunday Afternoon. Pt was at home. Initially mild severity but progressed with increased MELGOZA and conversational dyspnea. +mild wheezing. Pt has been taking torsemide 80mg BID uptitrated on last
admission without improvement. Also reports 14 lb weight gain. He denies cough/fever/chills/diaphoresis. Denies sick contacts, cp, palps, abd pain, n/v/d/c, dysuria, calf or leg pain.
ER course: Pt presents with BP 162/80 -> 151/65 other V.S.S. WBC 14.9K, Hgb 8.8 g/dL (at or above baseline), BUN/Cr 58/1.8 (Baseline Cr 1.4), LFts wnl, BNP 5810. CXR Left effusion vs infiltrate. Pulm Vascular congestion. official read pending. S/P
80mg IV lasix in ER.
Medical History
Past Medical History
Past Medical History: Reports Other (Past Medical History: Hypertension Chronic HFpEF COPD Permanent Atrial Fibrillation Lumbar DDD ASCVD Gout Morbid Obesity)
Past Surgical History: Reports Other (PTCA with Stent Lumbar laminectomy LINQ Implant)
Social History
Tobacco: Former Smoker
Alcohol: None
Drug: None
Family History
Family History: Not pertinent
Allergies / Home Medications
Allergies reflects when Allergies were last updated in [facility].
Home Medications with original date entered in [facility]
Allergy/Medication List:
Allergies
Allergy/AdvReac Type Severity Reaction Status Date / Time
No Known Allergies Allergy Verified 09/08/24 01:20
Home Medications
atorvastatin 40 mg tablet 40 mg PO QPM High cholesterol 01/19/20
dabigatran etexilate 150 mg capsule (Pradaxa) 150 mg PO BID Blood clot prevention/tx 01/19/20
finasteride 5 mg tablet 5 mg PO HS Urinary issue 04/07/20
metoprolol tartrate 25 mg tablet 25 mg PO BID Blood pressure 04/07/20
tamsulosin 0.4 mg capsule 0.4 mg PO HS Urinary issue 04/07/20
fluoxetine 40 mg capsule (Prozac) 40 mg PO HS depression/anxiety 11/02/21
folic acid 1 mg tablet 1 mg PO DAILY Supplement 06/19/23
hydralazine 25 mg tablet 25 mg PO TID #1 tab 06/25/23
umeclidinium 62.5 mcg-vilanterol 25 mcg/actuation powdr for inhalation (Anoro Ellipta) 1 inh inhalation R DAILY Lung/Breathing Issues 12/10/23
albuterol sulfate 2.5 mg/3 mL (0.083 %) solution for nebulization 2.5 mg inhalation R QIDPRN PRN sob 06/19/24
albuterol sulfate 90 mcg/actuation aerosol inhaler (Ventolin HFA) 1 puff inhalation R Q4HPRN PRN wheeze/SOB 06/19/24
allopurinol 100 mg tablet 100 mg PO DAILY gout prophylaxis 06/19/24
cyanocobalamin (vitamin B-12) 1,000 mcg tablet,extended release 1,000 mcg PO DAILY Supplement 06/19/24
dapagliflozin propanediol 10 mg tablet (Farxiga) 10 mg PO DAILY Heart Failure 06/19/24
potassium chloride 20 mEq tablet,extended release(part/cryst) 20 meq PO BID Electrolyte Repletion 06/19/24
clopidogrel 75 mg tablet (Plavix) 75 mg PO DAILY 09/08/24
mirtazapine 15 mg tablet 15 mg PO HS #30 tabs 09/19/24
torsemide 20 mg tablet 80 mg (4 x 20 mg) PO BID@0800,1600 #60 tabs 09/19/24
Review of Systems
-
A 12 point ROS was completed and negative except as noted: Yes
Physical Exam
Vital Signs
Vital Signs
Temp Pulse Resp BP Pulse Ox
98 F 64 20 151/61 95
09/23/24 20:52 09/24/24 00:26 09/23/24 23:41 09/24/24 00:26 09/23/24 23:49
Physical Exam
General: Appears Chronically Ill, Morbidly Obese and Other (Awake and following commands. Conversational dyspnea present. )
HEENT: Moist mucous membranes, PERRLA and Other (Large Neck Circumference)
Respiratory: Other (Few bibasilar rales. Diffuse expiratory wheezing.)
Cardiac: S1/S2, Irregular Rhythm and Murmur (2/6 VIMAL)
GI: Non Tender, Non Distended, Normal Bowel Sounds and Other (Obese.)
Musculoskeletal: No Clubbing, No Cyanosis and Other (4+ pitting edema b/l LEs. )
Skin: Warm and Dry; No Jaundice or Ulcers
Neuro: AO x 3
Hematologic/Lymphatic: No Lymphadenopathy
Psych: Calm
Laboratory Results
-
09/23/24 21:03
09/23/24 21:03
Laboratory Results
Total Bilirubin 0.7 mg/dl (0.2-1.3) 09/23/24 21:03
AST 22 U/L (17-59) 09/23/24 21:03
ALT 18 U/L (0-50) 09/23/24 21:03
Alkaline Phosphatase 66 U/L (38-126) 09/23/24 21:03
Data Reviewed
-
Diagnostic Radiology: Image Personally Visualized and interpreted
Medical Tests (Nuc Med, Echo, EKG etc): Image Personally Visualized and interpreted ( EKG: Atrial Fibrillation @ 70bpm, LAD, Q-waves V1-V3, QTC 442ms; no change from prior.)
Lab Data: Labs Reviewed by me
Old Records: Reviewed
Impression/Plan
-
Acute on Chronic HFpEF
- 4 day of MELGOZA/Conversational dyspnea with 14 lb wt gain
- Likely in setting of /Atrial Fibrillation (permanent)
- No Hypoxia on presentation
- CXR Left effusion vs infiltrate. Pulm Vascular congestion. official read pending.
- S/P 80 mg IV lasix in ER. Continue 80mg IV BID. Holding home torsemide
- Monitor I/Os, daily weights, etc.
- GDMT: Farxiga (monitor renal function), Metoprolol, Hydralazine
- Cardio consult.
Possible LLL PNA
- Afebrile. WBC 14.9K. Was on steroid taper last admission for COPD however LLL infiltrate possibly present on imaging.
- Pt did have CT chest in 06/2024 for similar presentation with imaging negative however WBC higher today
- Unable to add procal 2/2 renal dysfunction per hospital protocol
- Will start rocephin/azithromycin
- Obtain Sputum culture/COVID/Flu
- Prn Duonebs
ZA/CKD IIIa
- BUN/Cr 58/1.8. baseline Cr 1.4
- Trend with IV diuresis suspecting cardiorenal etiology
- Minimize nephrotoxics
- Trend I&O
Iron Deficiency Anemia
Colonic Angiodysplastic Lesions
- Hgb 8.8 g/dL. At or above prior baseline
- Previous iron studies indicated iron deficiency.
- Endoscopic examinations done in June included colonoscopy with multiple angiodysplastic lesions seen. No active bleeding at that time.
- Continue pradaxa
- Trend H&H for stability.
COPD
- Stable
- Continue inhale therapy and IS
- Duonebs PRN
Permanent Atrial Fibrillation
- Stable. Holding Pradaxa acutely as noted above.
- Continue metoprolol.
CAD s/p Stent / HTN / HLD
- Continue plavix/statin/BB/hydralazine/diuresis/
Benign Hypertension
- Stable. Continue usual home meds with holding parameters.
Gout
- Stable. Continue allopurinol.
BPH
- Stable. Continue current medications.
- Bladder scan protocol.
Morbid Obesity
- BMI 41.4. Class III Obesity
- Encourage healthy diet and increased activity with goal of weight loss.
Diet: Cardiac, 1200cc fluid restriction
DVT Ppx: Pradaxa
Code Status: DNR
[2024-09-24] MEDS: STERILE WATER FOR INJECTION 20 ML IV (02:37)
[2024-09-24] MEDS: ROCEPHIN 2000 MG IV (02:37)
[2024-09-24] MEDS: ZITHROMAX 500 MG PO ×2 (02:38→21:16)
[2024-09-24 04:04] LABS: COVID-19 Antigen Negative (Negative)
[2024-09-24 07:01] LABS: Blood Urea Nitrogen 54 mg/dl (9-20); Calcium 7.1 mg/dl (8.4-10.2); Carbon Dioxide 28 mmol/L (22-30); Chloride 109 mmol/L (98-107); Estimated Creatinine Clearance 46 ml/min; Glucose 102 mg/dl (70-99); Magnesium 2.5 mg/dl (1.6-2.3); Potassium 3.7 mmol/L (3.5-5.1); Sodium 144 mmol/L (135-145); eGFR 42.22
--- NOTE | 2024-09-24 07:16 | PTCARENOTE ---
Received pt from ED @ 0500. AAOx3. Tachypneic and on 2L NC, other VSS. Pt MELGOZA. Ambulated from stretcher to bed with assist x2. Requested two small cups of ice during admissions process. RN explained about fluid restriction, pt verbalizes
understanding, but reiterated thirst. Pt resting in bed and call corrigan within reach.
[2024-09-24 07:24] LABS: TSH Reflex To Free T4 0.82 uIU/ml (0.47-4.68)
[2024-09-24 07:25] LABS: Hematocrit 28.8 % (39.0-52.0); Hemoglobin 8.3 g/dL (13.0-18.0); Mean Corp Hgb Conc. 28.8 g/dL (33.0-37.0); Mean Corpuscular Hgb 23.9 pg (27.0-31.0); Mean Corpuscular Volume 82.8 fL (80.0-94.0); Mean Platelet Volume 9.5 fL (7.4-10.4); Platelet Count 260 10^3/uL (130-400); Red Blood Cell Count 3.48 10^6/uL (4.70-6.10); Red Cell Dist. Width 24.1 % (11.5-14.5); White Blood Cell Count 12.4 10^3/uL (4.8-10.8)
[2024-09-24] MEDS: SPIRIVA RESPIMAT 2.5 MCG 2 PUFF INH (07:36)
--- NOTE | 2024-09-24 08:05 | W.PN.HOSP.TC ---
Today's Communication/Plan
-
IV Diuresis
Assessment / Plan
Assessment / Plan
Physical exam:
General: Acutely ill
HEENT: Normocephalic, Atraumatic and Moist Mucous Membranes
Respiratory: Bilateral coarse crackles; Negative Rhonchi, some scattered wheezes
Cardiac: Regular Rhythm and S1/S2
GI: Soft, Nontender and Nondistended
Musculoskeletal: Bilateral lower extremity edema 3+. No Clubbing, No Cyanosis
Neuro: Awake, Alert and Oriented, no neurological deficit
Psych: Calm
A/P:
Acute hypoxic respiratory insufficiency:
Multifactorial etiology related to heart failure, pneumonia, obesity with probable MARIXA/OHS
On 2 L of oxygen today
Supplemental oxygen as needed and wean as able
Diuretics and antibiotics
Acute on Chronic HFpEF:
Continue IV Lasix 80 mg twice a day
Monitor ins and outs and daily weight
On GDMT---> beta-blockers, metoprolol tartrate 25 mg twice a day, Farxiga 10 mg p.o. daily, on hydralazine 25 mg p.o. 3 times daily.
Cardiology consult appreciated
Community-acquired LLL PNA:
Continue IV ceftriaxone and oral azithromycin.
WBC 14.9 down to--> 12.4
ZA/CKD IIIa
Likely cardiorenal component
Creatinine 1.6 today down from 1.8 yesterday
Avoid nephrotoxic
Continue to monitor renal function
Chronic iron Deficiency Anemia/history of colonic Angiodysplastic Lesions:
Hemoglobin stable
Today hemoglobin 8.3
On antiplatelet and anticoagulation
COPD
Stable
Continue inhalers
No need for systemic steroid at the moment
Permanent Atrial Fibrillation
Continue rate control, beta-keyana of metoprolol tartrate 25 mg twice a day
Continue anticoagulation, Pradaxa 150 mg p.o. twice a day
CAD:
Chest pain-free
Continue anti-ischemic regimen of dual antiplatelet therapy, beta-blockers, and statins.
Hypertension:
Continue usual medications
Hyperlipidemia:
Continue statin
Gout
Continue allopurinol.
BPH
Continue tamsulosin 0.4 mg p.o. nightly
Morbid Obesity
Encourage healthy diet and increased activity with goal of weight loss. Bariatric surgery could be considered as outpatient.
DVT prophylaxis:
Continue Pradaxa
Code Status:
DNR
Anticipated Discharge: > 48 hours
Subjective/Interval History
-
Date of Service: September 24, 2024
Patient still having shortness of breath and significant peripheral edema. Denies any chest pain. Afebrile.
Objective Data
-
Labs:
Laboratory Results
09/23/24 09/24/24
21:03 06:10
WBC 14.9 H 12.4 H
Hgb 8.8 L 8.3 L
Hct 30.0 L 28.8 L
Plt Count 273 D 260
Sodium 143 144
Potassium 4.2 3.7
Chloride 108 H 109 H
Carbon Dioxide 25 28
BUN 58 H 54 H
Creatinine 1.8 H 1.6 H
Glucose 102 H 102 H
Calcium 7.2 L 7.1 L
Total Bilirubin 0.7
AST 22
ALT 18
Alkaline Phosphatase 66
Vital Signs:
Vital Signs
Temp Pulse Resp BP Pulse Ox
97.8 F 63 22 134/92 96
09/24/24 07:43 09/24/24 07:41 09/24/24 07:43 09/24/24 05:16 09/24/24 07:43
I&O
09/23/24 09/24/24 09/25/24
06:59 06:59 06:59
Intake Total 360 / 360
Output Total 800 / 800 250 / 250
Balance -440 / -440 -250 / -250
[2024-09-24] MEDS: FOLVITE 1 MG PO (08:45)
[2024-09-24] MEDS: APRESOLINE 25 MG PO ×3 (08:45→21:15)
[2024-09-24] MEDS: ZYLOPRIM 100 MG PO (08:45)
[2024-09-24] MEDS: KCL 20 MEQ PO ×2 (08:45→21:14)
[2024-09-24] MEDS: LOPRESSOR 25 MG PO ×2 (08:45→21:14)
[2024-09-24] MEDS: FARXIGA 10 MG PO (08:45)
[2024-09-24] MEDS: PRADAXA 150 MG PO ×2 (08:45→21:14)
[2024-09-24] MEDS: PLAVIX 75 MG PO (08:47)
[2024-09-24] MEDS: VITAMIN B-12 1000 MCG PO (08:47)
--- NOTE | 2024-09-24 08:47 | CON.CAR ---
Addendum entered and electronically signed by Aldo Plasencia MD 09/24/24 12:02:
I saw and examined the patient.
The MIDDLE SCHOOL BASEBALL COACH's note was reviewed and I agree with the note.
84-year-old with HFpEF, coronary artery disease history of coronary stenting CKD lymphedema atrial fibrillation, chronic anticoagulation and history of orthostatic hypotension with recent hospitalization. Patient is developed increased edema
despite an increase in his diuretics at discharge. Patient also had some increased shortness of breath. This is has improved on nasal cannula oxygen. Patient has nebulizer at home but does not have chronic O2. Patient currently comfortable faint
end expiratory wheeze which may be some transmission of upper airway sounds. Bilateral lower extremity edema.
- Diuresis with IV Lasix. Patient responded last admission
- Monitor weights and renal function and potassium.
- Will need to reassess outpatient regimen. Could consider use of metolazone. Also can reassess use of low-dose spironolactone which had previously been stopped due to some orthostatic hypotension. Will get additional input from his primary
catalyst manufacturing operator Dr. Shin regarding plans for outpatient regimen
Original Note:
Consultation
Consultation Request
Date/Time Consultation Requested: 09/24/24 0508
Date/Time Consultation Performed: 09/24/24 0815
Requesting Provider: Dr. Smiley
Performing Provider: Anuradha UPTON for Dr. Plasencia
Reason for Consultation: CHF
Medical History
-
Chief Complaint: weight gain, edema, SOB
History of Present Illness:
84 y/o male (patient of Dr. Shin) with HFpEF, CAD with hx stenting, hypertension, CKD3, COPD, obesity, lymphedema, orthostatic hypotension, permanent AFIB on Pradaxa, anemia who was recently hospitalized with CHF exacerbation and was diurese
and send home on increased diuretic. He was d/c'd on 09/19 and came back on 09/23 since he gained 13 lbs and has increased LE edema, as well as periods of SOB. He reports following fluid and sodium restriction and taking his medications as prescribed.
He is urinating at home with diuretic. He is back for CHF exacerbation and is also being treated for possible PNA. He is in no distress at the time of my assessment.
Past Medical History
Past Medical History: Arrhythmias, CAD, CHF, COPD and HTN
Social History
Tobacco: Former Smoker
Family History
Family History: Reviewed & Not Pertinent
Allergies / Home Medications
Allergy/AdvReac Type Severity Reaction Status Date / Time
No Known Allergies Allergy Verified 09/08/24 01:20
�Medication �Instructions �Recorded �Confirmed �Type
atorvastatin 40 mg tablet 40 mg PO QPM High cholesterol 01/19/20 09/24/24 History
dabigatran etexilate 150 mg 150 mg PO BID Blood clot 01/19/20 09/24/24 History
capsule (Pradaxa) prevention/tx
finasteride 5 mg tablet 5 mg PO HS Urinary issue 04/07/20 09/24/24 History
metoprolol tartrate 25 mg tablet 25 mg PO BID Blood pressure 04/07/20 09/24/24 History
tamsulosin 0.4 mg capsule 0.4 mg PO HS Urinary issue 04/07/20 09/24/24 History
fluoxetine 40 mg capsule (Prozac) 40 mg PO HS depression/anxiety 11/02/21 09/24/24 History
folic acid 1 mg tablet 1 mg PO DAILY Supplement 06/19/23 09/24/24 History
hydralazine 25 mg tablet 25 mg PO TID #1 tab 06/25/23 09/24/24 Rx
umeclidinium 62.5 mcg-vilanterol 1 inh inhalation R DAILY 12/10/23 09/24/24 History
25 mcg/actuation powdr for Lung/Breathing Issues
inhalation (Anoro Ellipta)
albuterol sulfate 2.5 mg/3 mL 2.5 mg inhalation R QIDPRN PRN sob 06/19/24 09/24/24 History
(0.083 %) solution for nebulization
albuterol sulfate 90 mcg/actuation 1 puff inhalation R Q4HPRN PRN 06/19/24 09/24/24 History
aerosol inhaler (Ventolin HFA) wheeze/SOB
allopurinol 100 mg tablet 100 mg PO DAILY gout prophylaxis 06/19/24 09/24/24 History
cyanocobalamin (vitamin B-12) 1,000 mcg PO DAILY Supplement 06/19/24 09/24/24 History
1,000 mcg tablet,extended release
dapagliflozin propanediol 10 mg 10 mg PO DAILY Heart Failure 06/19/24 09/24/24 History
tablet (Farxiga)
potassium chloride 20 mEq 20 meq PO BID Electrolyte Repletion 06/19/24 09/24/24 History
tablet,extended release(part/cryst)
clopidogrel 75 mg tablet (Plavix) 75 mg PO DAILY 09/08/24 09/24/24 History
mirtazapine 15 mg tablet 15 mg PO HS #30 tabs 09/19/24 09/24/24 Rx
torsemide 20 mg tablet 80 mg (4 x 20 mg) PO BID@0800,1600 09/19/24 09/24/24 Rx
#60 tabs
Review of Systems
-
History Source: Patient
All other systems: Negative unless noted
Constitutional: Weight Gain
Respiratory: Trouble Breathing
Musculoskeletal: Edema
Physical Exam
Vital Signs
Temp Pulse Resp BP Pulse Ox
97.8 F 60 22 159/77 96
09/24/24 07:43 09/24/24 08:30 09/24/24 07:43 09/24/24 07:46 09/24/24 07:43
Lab Results
09/24/24 06:10
09/24/24 06:10
Ybr-H-Perxuxxvkck Pept 5810 pg/ml 09/23/24 21:03
Physical Exam
General: Well Developed, Well Nourished and No Apparent Distress
HEENT: Normocephalic and Anicteric
Respiratory: Crackles (b/l bases ) and Other (on O2 by NC)
Cardiac: Irregular Rhythm
Musculoskeletal: Edema (+3 BLE edema)
Skin: Warm and Dry
Neuro: AO x 3
Psych: Calm
Impression / Plan
-
Rwgkn-wv-avojltx HFpEF:
-agree with IV lasix, which requires intensive monitoring. OP diuretic dosing was torsemide 80 mg PO BID (increased from previous dosing after last admission). May need metolazone as well as OP. Continue Farxiga. MRA stopped for OH in recent
past/ACEI stopped in the past due to ZA.
-Echo 06/19/24: Left ventricular ejection fraction is 60-65%. Normal regional wall motion. Enlarged right ventricular size. Normal right ventricular systolic function. Aortic valve is poorly visualized. Likely mild aortic stenosis; peak/mean
gradients 13/8 mmHg, calculated BRIONNA 1.8 cm2. Mild tricuspid regurgitation. Estimated pulmonary artery pressure of 60-65 mmHg, assuming a right atrial pressure of 8 mmHg. Compared to previous echo on 12/11/2023, mild aortic stenosis is now noted and
the PASP has increased (previously 30 mmHg).
-Pulmonary hypertension noted, diuretic plan as above. Of note, patient does have chronic lymphedema, but edema much worse than usual per patient.
-CHF education/diet
Possible PNA:
-getting ABX
-management per primary
Permanent AFIB:
-stable, rate controlled
-continue metoprolol and Pradaxa
CAD:
-Cath 06/20/23: Codominant circulation with a long, 30% mid LAD lesion culminating in an occlusive 70% lesion (IFR = 0.65), status post successful PCI of the entire lesion (overlapping Xience Skypoint 3.0 x 28 JANETTE, 3.25 x 8 JANETTE, postdilated with a
3.0 NC balloon) with reduction in all stenoses to 0%, maintaining TOMY-3 flow. Severely elevated filling pressures (LVEDP = 24 mmHg, PCWP = 25 mmHg at 134.3 kg). Moderate pulmonary hypertension, WHO group 2.
-continue Pradaxa, statin, BB
CKD:
-monitor with diuresis
Anemia:
-follow
HTN:
-continue meds and monitor with diuresis
Mild aortic stenosis:
-monitor over time by echo
Data Reviewed
-
EKG: Tracing Personally Visualized and interpreted (AFIB, rate-controlled, stable)
Radiology: Image Personally Visualized and interpreted (official read pending, but evidence for excess volume)
Medical Tests (Nuc Med, Echo etc): Report Reviewed by me (echo and cath as noted)
Labs: Labs Reviewed by me
--- NOTE | 2024-09-24 10:40 | PTCARENOTE ---
Rec'd pt at handoff. AOX3. Tele- Afib. HR 50-80s. Pt dyspneic on exertion and at rest. Pt w/ +4 b/l LE pitting edema. 80mg IV Lasix administered as ordered. See JUL. Assessment completed as documented. Plan of care reviewed w/ pt and verbalizes
understanding. Heart failure education materials given and reviewed w/ pt and verbalizes understanding.
--- NOTE | 2024-09-24 13:09 | CM ---
spoke to pt in room, he is prev indep, lives alone in a 2 story home with 2 steps to enter. he has a walker, stair glide and nebulizer at home. dc plans uncertain at this time, cm following
[2024-09-24] MEDS: VENTOLIN NEBULES 2.5 MG INH (15:41)
[2024-09-24] MEDS: LIPITOR 40 MG PO (17:21)
[2024-09-24] MEDS: REMERON 15 MG PO (21:16)
[2024-09-24] MEDS: PROZAC 40 MG PO (21:16)
[2024-09-24] MEDS: PROSCAR 5 MG PO (21:16)
[2024-09-24] MEDS: FLOMAX 0.4 MG PO (21:16)
[2024-09-24] MEDS: TYLENOL 650 MG PO (23:43)
[2024-09-25] VITALS (8 sets, daily range): BP systolic 106–146; BP diastolic 48–74; BMI 40.7
[2024-09-25] MEDS: ROCEPHIN 2000 MG IV (03:25)
[2024-09-25] MEDS: STERILE WATER FOR INJECTION 20 ML IV (03:25)
[2024-09-25 04:21] LABS: Hematocrit 27.3 % (39.0-52.0); Hemoglobin 7.9 g/dL (13.0-18.0); Mean Corp Hgb Conc. 28.9 g/dL (33.0-37.0); Mean Corpuscular Hgb 24.4 pg (27.0-31.0); Mean Corpuscular Volume 84.3 fL (80.0-94.0); Mean Platelet Volume 9.6 fL (7.4-10.4); Platelet Count 246 10^3/uL (130-400); Red Blood Cell Count 3.24 10^6/uL (4.70-6.10); Red Cell Dist. Width 23.6 % (11.5-14.5); White Blood Cell Count 10.2 10^3/uL (4.8-10.8)
--- NOTE | 2024-09-25 04:27 | PTCARENOTE ---
Pt. remains MELGOZA with orthopnea when awake; B/L exp. wheezes present. RA pulse ox 88-91%; pt. much more comfortable with 2L O2 on, pulse ox increasing up to 97%. Voiding in urinal without difficulty. A-fib on the monitor. Pt. very pleasant.
Currently sleeping.
[2024-09-25 04:35] LABS: Blood Urea Nitrogen 50 mg/dl (9-20); Carbon Dioxide 27 mmol/L (22-30); Chloride 109 mmol/L (98-107); Estimated Creatinine Clearance 46 ml/min; Glucose 96 mg/dl (70-99); Potassium 3.8 mmol/L (3.5-5.1); Sodium 142 mmol/L (135-145); eGFR 42.22
[2024-09-25] MEDS: VENTOLIN NEBULES 2.5 MG INH (06:59)
[2024-09-25] MEDS: SPIRIVA RESPIMAT 2.5 MCG 2 PUFF INH (07:00)
--- NOTE | 2024-09-25 07:00 | PTCARENOTE ---
Pt. rang call corrigan at 0610 and complained of anterior chest pain, level 6 out of 10, sharp and intermittent, non-radiating. Also complaining of some increasing SOB. BP 130/59, HR 60's (A-fib). Expiratory wheezing and coarse breath sounds present
bilaterally, pulse ox 93% on 3L O2. EKG completed, hospitalist GROUNDS MAINTENANCE MANAGER Bety notified and troponin ordered and sent. RT notified to please administer PRN albuterol treatment. Pt. currently states pain currently down to level 1-2 and he feels less
SOB . Dr. Shin also notified, EKG TT'd; no new orders. Troponin still pending. [facility].
[2024-09-25 07:04] LABS: Troponin I 0.012 ng/ml
--- NOTE | 2024-09-25 07:51 | W.PN.CD ---
Today's Communication / Plan
-
adding a dose of metolazone prior to lasix today
continue intensive monitoring
iron studies consider iron infusion
eleuterio wraps
Impression / Plan
-
Wdmlw-dt-uhzblpz HFpEF:
-agree with IV lasix, which requires intensive monitoring. OP diuretic dosing was torsemide 80 mg PO BID (increased from previous dosing after last admission)-->no brisk response, will cautiously trial a dose of metolazone prior to torsemide.
- Continue Farxiga. MRA stopped for OH in recent past/ACEI stopped in the past due to ZA.
-Echo 06/19/24: Left ventricular ejection fraction is 60-65%. Normal regional wall motion. Enlarged right ventricular size. Normal right ventricular systolic function. Aortic valve is poorly visualized. Likely mild aortic stenosis; peak/mean
gradients 13/8 mmHg, calculated BRIONNA 1.8 cm2. Mild tricuspid regurgitation. Estimated pulmonary artery pressure of 60-65 mmHg, assuming a right atrial pressure of 8 mmHg. Compared to previous echo on 12/11/2023, mild aortic stenosis is now noted and
the PASP has increased (previously 30 mmHg).
-Pulmonary hypertension noted, diuretic plan as above. Of note, patient does have chronic lymphedema, but edema much worse than usual per patient.
-CHF education/diet--he is typically compliant
-maybe anemia contributing to exacerbation
Anemia:
-GI work up in 06/2024 with angiodysplastic lession --nonbleeding on colol
-concern for slows loss, he is not on clopidogrel, will stop
-will add iron studies
-follow for possible iron infusion
Possible PNA:
-getting ABX
-management per primary
Permanent AFIB:
-stable, rate controlled
-continue metoprolol and Pradaxa
CAD:
-Cath 06/20/23: Codominant circulation with a long, 30% mid LAD lesion culminating in an occlusive 70% lesion (IFR = 0.65), status post successful PCI of the entire lesion (overlapping Xience Skypoint 3.0 x 28 JANETTE, 3.25 x 8 JANETTE, postdilated with a
3.0 NC balloon) with reduction in all stenoses to 0%, maintaining TOMY-3 flow. Severely elevated filling pressures (LVEDP = 24 mmHg, PCWP = 25 mmHg at 134.3 kg). Moderate pulmonary hypertension, WHO group 2.
-continue Pradaxa, statin, BB
CKD:
-monitor with diuresis
-slightly up, but will allow for some azotemia to acheive acceptable volume status
HTN:
-continue meds and monitor with diuresis
Mild aortic stenosis:
-monitor over time by echo
Lymphedema:
-add eleuterio wraps
Subj:
no complaints of cp, +sob +increase edema
Physical Exam
Vital Signs/Labs
Vital Signs
Temp Pulse Resp BP Pulse Ox
98.1 F 58 20 130/59 96
09/25/24 07:42 09/25/24 07:02 09/25/24 07:42 09/25/24 06:10 09/25/24 07:42
09/24/24 09/25/24 09/26/24
06:59 06:59 06:59
Actual Weight 284 lb 2.813 oz 283 lb 15.286 oz
09/25/24 02:58
09/25/24 02:58
Magnesium 2.5 mg/dl (1.6-2.3) H 09/24/24 06:10
09/23/24
21:03
Eqv-L-Egekkjmgkdl Pept 5810
LAB Results
09/25/24
06:25
Troponin I 0.012
Physical Exam
Constitutional: No acute distress
Cardiovascular: Rhythm/rate is irregular and Pedal edema present (2+ up through the thighs)
Respiratory: Wheeze Present and Other (dsyspneic with conversation)
Neuro/Psych: AO x 3
Data Reviewed
-
Date of Service: September 25, 2024
Medical Decision Making: Review of Case with other Provider (medicine team adding metolazone, iron studies, eleuterio wraps also discussed with IVU nurse Danay)
EKG: Tracing Personally Visualized and interpreted (ECG shows atrial fib with no ischemic changes) and Other (fib)
[2024-09-25] MEDS: ZAROXOLYN 2.5 MG PO (08:35)
--- NOTE | 2024-09-25 08:51 | W.PN.HOSP.TC ---
Today's Communication/Plan
-
IV diuretics. Colchicine.
Assessment / Plan
Assessment / Plan
Physical exam:
General: Acutely ill
HEENT: Normocephalic, Atraumatic and Moist Mucous Membranes
Respiratory: Bilateral coarse crackles; Negative Rhonchi, some scattered wheezes
Cardiac: Regular Rhythm and S1/S2
GI: Soft, Nontender and Nondistended
Musculoskeletal: Bilateral lower extremity edema 3+. Right ankle tender. No Clubbing, No Cyanosis
Neuro: Awake, Alert and Oriented, no neurological deficit
Psych: Calm
A/P:
Acute hypoxic respiratory insufficiency:
Multifactorial etiology related to heart failure, pneumonia, obesity with probable MARIXA/OHS
On 2 L of oxygen today
Supplemental oxygen as needed and wean as able
Diuretics and antibiotics
Acute on Chronic HFpEF:
Continue IV Lasix 80 mg twice a day
Cardiology considering metolazone
Monitor ins and outs and daily weight
On GDMT---> beta-blockers, metoprolol tartrate 25 mg twice a day, Farxiga 10 mg p.o. daily, on hydralazine 25 mg p.o. 3 times daily.
Cardiology consult appreciated
Community-acquired LLL PNA:
Continue IV ceftriaxone and oral azithromycin.
WBC 14.9 down to--> 10.2
Gout--> acute flare likely due to current diuresis
We will start colchicine today
Can consider steroids if unable to do colchicine or not improvement with above in light of his CKD
Continue allopurinol since he was on it.
ZA/CKD IIIa
Likely cardiorenal component
Creatinine 1.6 today down from 1.8 yesterday
Avoid nephrotoxic
Continue to monitor renal function
Chronic iron Deficiency Anemia/history of colonic Angiodysplastic Lesions:
Hemoglobin stable
Today hemoglobin 7.9
On antiplatelet and anticoagulation
COPD
Stable
Continue inhalers
No need for systemic steroid at the moment
Permanent Atrial Fibrillation
Continue rate control, beta-keyana of metoprolol tartrate 25 mg twice a day
Continue anticoagulation, Pradaxa 150 mg p.o. twice a day
CAD:
Chest pain-free
Continue anti-ischemic regimen of dual antiplatelet therapy, beta-blockers, and statins.
Hypertension:
Continue usual medications
Hyperlipidemia:
Continue statin
BPH
Continue tamsulosin 0.4 mg p.o. nightly
Morbid Obesity
Encourage healthy diet and increased activity with goal of weight loss. Bariatric surgery could be considered as outpatient.
DVT prophylaxis:
Continue Pradaxa
Code Status:
DNR
Total time spent on today's encounter was 52 minutes which included time spent in counseling the patient/family regarding diagnosis and treatment plan as listed above, goals of care, and symptom management. Case was discussed with nursing staff,
specialists, and care coordinators/case management. All labs and imaging personally reviewed by me. Remainder the time spent in detailed review of previous records, lab data, imaging, and other medical provider documentation.
Anticipated Discharge: > 48 hours
Subjective/Interval History
-
Date of Service: September 25, 2024
Patient still short of breath although slight improvement. Complains of ankle pain from gout. Afebrile
Objective Data
-
Labs:
Laboratory Results
09/25/24
02:58
WBC 10.2
Hgb 7.9 L
Hct 27.3 L
Plt Count 246
Sodium 142
Potassium 3.8
Chloride 109 H
Carbon Dioxide 27
BUN 50 H
Creatinine 1.6 H
Glucose 96
Calcium 7.0 L
Vital Signs:
Vital Signs
Temp Pulse Resp BP Pulse Ox
98.1 F 67 20 106/50 97
09/25/24 07:42 09/25/24 07:44 09/25/24 07:42 09/25/24 07:44 09/25/24 07:44
I&O
09/24/24 09/25/24 09/26/24
06:59 06:59 06:59
Intake Total 360 / 360 500 / 500
Output Total 800 / 800 2049 / 2049
Balance -440 / -440 -1550 / -1550
[2024-09-25] MEDS: PLAVIX PO (09:21)
[2024-09-25] MEDS: LOPRESSOR 25 MG PO ×2 (09:24→20:54)
[2024-09-25] MEDS: ZYLOPRIM 100 MG PO (09:25)
[2024-09-25] MEDS: FARXIGA 10 MG PO (09:25)
[2024-09-25] MEDS: LASIX 80 MG IV ×2 (09:25→15:30)
[2024-09-25] MEDS: PRADAXA 150 MG PO ×2 (09:25→20:54)
[2024-09-25] MEDS: KCL 20 MEQ PO ×2 (09:25→20:53)
[2024-09-25] MEDS: APRESOLINE 25 MG PO ×3 (09:25→20:55)
[2024-09-25] MEDS: FOLVITE 1 MG PO (09:25)
[2024-09-25] MEDS: VITAMIN B-12 1000 MCG PO (09:27)
[2024-09-25 10:21] LABS: Iron 28 ug/dl (49-181)
[2024-09-25 10:30] LABS: Percent Saturation 9 % (20-50); Total Iron Binding Capacity 297 ug/dl (261-462)
[2024-09-25 10:56] LABS: Ferritin 38.8 ng/ml (17.9-464.0)
--- NOTE | 2024-09-25 11:22 | CM ---
Chart reviewed. Patient is independent of ADLS, lives alone in a [address], 2 [facility], ambulates with a walker and has a stair glide. Patient is current with [facility]. Patient will need a PT evaluation to assess patient's functional assessment. CM to
follow
[2024-09-25] MEDS: COLCHICINE 0.6 MG PO ×2 (12:02→20:53)
[2024-09-25] MEDS: FERRLECIT 110 MG IV (15:00)
[2024-09-25] MEDS: LIPITOR 40 MG PO (17:22)
[2024-09-25] MEDS: ZITHROMAX 500 MG PO (20:55)
[2024-09-25] MEDS: FLOMAX 0.4 MG PO (20:55)
[2024-09-25] MEDS: PROZAC 40 MG PO (20:55)
[2024-09-25] MEDS: REMERON 15 MG PO (20:55)
[2024-09-25] MEDS: PROSCAR 5 MG PO (20:56)
[2024-09-26] VITALS (8 sets, daily range): BP systolic 112–143; BP diastolic 38–65; BMI 40.1
[2024-09-26] MEDS: TYLENOL 650 MG PO ×2 (01:49→06:23)
[2024-09-26] MEDS: ROCEPHIN 2000 MG IV (01:49)
[2024-09-26] MEDS: STERILE WATER FOR INJECTION 20 ML IV (01:50)
[2024-09-26 02:58] LABS: Hematocrit 29.3 % (39.0-52.0); Hemoglobin 8.7 g/dL (13.0-18.0)
[2024-09-26 03:19] LABS: Blood Urea Nitrogen 51 mg/dl (9-20); Calcium 7.5 mg/dl (8.4-10.2); Carbon Dioxide 28 mmol/L (22-30); Estimated Creatinine Clearance 43 ml/min; Glucose 112 mg/dl (70-99); Potassium 3.3 mmol/L (3.5-5.1); Sodium 141 mmol/L (135-145); eGFR 39.26
[2024-09-26 03:25] LABS: Chloride 104 mmol/L (98-107)
[2024-09-26] MEDS: KCL 40 MEQ PO (06:23)
[2024-09-26] MEDS: SPIRIVA RESPIMAT 2.5 MCG 2 PUFF INH (07:29)
--- NOTE | 2024-09-26 08:18 | W.PN.CD ---
Today's Communication / Plan
-
main complaint is ankle pain which is consistent with prior gout. Tx per primary team
Stll with edema. Continue diuresis and monitor labs and renal function . he received metolzaone. may therese additonal dosing but will need to replace potassium
Impression / Plan
-
Gtuki-yu-kcznkvw HFpEF:
-agree with IV lasix, which requires intensive monitoring. OP diuretic dosing was torsemide 80 mg PO BID (increased from previous dosing after last admission)-->recieved metolazone 09/25 with diuresis
- Continue Farxiga. MRA stopped for OH in recent past/ACEI stopped in the past due to [place].
-Echo 06/19/24: Left ventricular ejection fraction is 60-65%. Normal regional wall motion. Enlarged right ventricular size. Normal right ventricular systolic function. Aortic valve is poorly visualized. Likely mild aortic stenosis; peak/mean
gradients 13/8 mmHg, calculated BRIONNA 1.8 cm2. Mild tricuspid regurgitation. Estimated pulmonary artery pressure of 60-65 mmHg, assuming a right atrial pressure of 8 mmHg. Compared to previous echo on 12/11/2023, mild aortic stenosis is now noted and
the PASP has increased (previously 30 mmHg).
-Pulmonary hypertension noted, diuretic plan as above. Of note, patient does have chronic lymphedema, but edema much worse than usual per patient.
-CHF education/diet--he is typically compliant
-maybe anemia contributing to exacerbation
.
NSVT - 6 beats in setting of hypokalemia
- asymptomatic
- replace potassium
Anemia:
-GI work up in 06/2024 with angiodysplastic lession --nonbleeding on colol
-concern for slows loss, he is not on clopidogrel, will stop
-will add iron studies
-follow for possible iron infusion
Possible PNA:
-getting ABX
-management per primary
Permanent AFIB:
-stable, rate controlled
-continue metoprolol and Pradaxa
CAD:
-Cath 06/20/23: Codominant circulation with a long, 30% mid LAD lesion culminating in an occlusive 70% lesion (IFR = 0.65), status post successful PCI of the entire lesion (overlapping Xience Skypoint 3.0 x 28 JANETTE, 3.25 x 8 JANETTE, postdilated with a
3.0 NC balloon) with reduction in all stenoses to 0%, maintaining TOMY-3 flow. Severely elevated filling pressures (LVEDP = 24 mmHg, PCWP = 25 mmHg at 134.3 kg). Moderate pulmonary hypertension, WHO group 2.
-continue Pradaxa, statin, BB
.
ankle pain e feels is gout- txper primaryteam
CKD:
-monitor with diuresis
-slightly up, but will allow for some azotemia to acheive acceptable volume status
HTN:
-continue meds and monitor with diuresis
Mild aortic stenosis:
-monitor over time by echo
Lymphedema:
-add eleuterio wraps
Subj:
no complaints of cp, +sob +increase edema
Physical Exam
Vital Signs/Labs
Vital Signs
Temp Pulse Resp BP Pulse Ox
98.7 F 66 20 140/65 94
09/26/24 08:12 09/26/24 07:30 09/26/24 08:12 09/26/24 01:59 09/26/24 08:12
09/25/24 09/26/24 09/27/24
06:59 06:59 06:59
Actual Weight 128.8 kg 126.7 kg
09/26/24 02:32
09/26/24 02:32
Magnesium 2.5 mg/dl (1.6-2.3) H 09/24/24 06:10
09/23/24
21:03
Uto-A-Tblpnjlyzrm Pept 5810
LAB Results
09/25/24
06:25
Troponin I 0.012
Physical Exam
Constitutional: No acute distress
Cardiovascular: Rhythm & rate is regular
Respiratory: Wheeze Absent and Rhonchi Absent
GI: Soft and Normal bowel sounds
Neuro/Psych: Alert and Other (bilat edema. right ankle pain with palpation)
Data Reviewed
-
Date of Service: September 26, 2024
Medical Decision Making: Reviewed Test Results
Echo: Report Reviewed by me
X-Ray/CT/US/MRI/NUC/PET: Report Reviewed by me
Medical Tests (PFT, Pathology etc): Report Reviewed by me
Labs: Labs Ordered by me
[2024-09-26] MEDS: LOPRESSOR 25 MG PO ×2 (08:47→21:40)
[2024-09-26] MEDS: APRESOLINE 25 MG PO ×3 (08:47→21:39)
[2024-09-26] MEDS: FOLVITE 1 MG PO (08:47)
[2024-09-26] MEDS: ZYLOPRIM 100 MG PO (08:47)
[2024-09-26] MEDS: PRADAXA 150 MG PO ×2 (08:48→21:39)
[2024-09-26] MEDS: VITAMIN B-12 1000 MCG PO (08:48)
[2024-09-26] MEDS: COLCHICINE 0.6 MG PO (08:48)
[2024-09-26] MEDS: FARXIGA 10 MG PO (08:48)
[2024-09-26] MEDS: KCL 20 MEQ PO ×2 (08:48→21:40)
[2024-09-26] MEDS: LASIX 80 MG IV ×2 (08:49→15:10)
[2024-09-26] MEDS: DELTASONE 30 MG PO ×2 (09:05→21:39)
--- NOTE | 2024-09-26 11:30 | CM ---
Chart reviewed. Patient is independent of ADLS, lives alone in a [address], 2 [place], ambulates with a RW and also has a stairglide. Patient is current with [facility]. PT evaluation pending 06/08 patient increased SOB with activity . Plan is for the
patient to return home with VN vs SNF based on functional assessment. CM to follow
--- NOTE | 2024-09-26 13:48 | W.PN.HOSP.TC ---
Today's Communication/Plan
-
IV diuretics. Steroids.
Assessment / Plan
Assessment / Plan
Physical exam:
General: Acutely ill
HEENT: Normocephalic, Atraumatic and Moist Mucous Membranes
Respiratory: Bilateral coarse crackles; Negative Rhonchi, some scattered wheezes
Cardiac: Regular Rhythm and S1/S2
GI: Soft, Nontender and Nondistended
Musculoskeletal: Bilateral lower extremity edema 3+. Right ankle tender. No Clubbing, No Cyanosis
Neuro: Awake, Alert and Oriented, no neurological deficit
Psych: Calm
A/P:
Acute hypoxic respiratory insufficiency:
Multifactorial etiology related to heart failure, pneumonia, obesity with probable MARIXA/OHS
On 3 L of oxygen today
Supplemental oxygen as needed and wean as able
Diuretics and antibiotics
Transfer out of IVU today
Acute on Chronic HFpEF:
Continue IV Lasix 80 mg twice a day
Cardiology dosing metolazone as needed
Monitor ins and outs and daily weight
On GDMT---> beta-blockers, metoprolol tartrate 25 mg twice a day, Farxiga 10 mg p.o. daily, on hydralazine 25 mg p.o. 3 times daily.
Cardiology consult appreciated
Community-acquired LLL PNA:
Continue IV ceftriaxone and oral azithromycin.
WBC 14.9 down to--> 10.2
Gout--> acute flare likely due to current diuresis
He has been on colchicine and not much improvement.
Will start steroids today
Continue allopurinol since he was on it.
ZA/CKD IIIa
Likely cardiorenal component
Avoid nephrotoxic
Continue to monitor renal function
Chronic iron Deficiency Anemia/history of colonic Angiodysplastic Lesions:
Hemoglobin stable
Today hemoglobin 8.7
On antiplatelet and anticoagulation
COPD
Stable
Continue inhalers
No need for systemic steroid at the moment
Permanent Atrial Fibrillation
Continue rate control, beta-keyana of metoprolol tartrate 25 mg twice a day
Continue anticoagulation, Pradaxa 150 mg p.o. twice a day
CAD:
Chest pain-free
Continue anti-ischemic regimen of dual antiplatelet therapy, beta-blockers, and statins.
Hypertension:
Continue usual medications
Hyperlipidemia:
Continue statin
BPH
Continue tamsulosin 0.4 mg p.o. nightly
Morbid Obesity
Encourage healthy diet and increased activity with goal of weight loss. Bariatric surgery could be considered as outpatient.
DVT prophylaxis:
Continue Pradaxa
Code Status:
DNR
Total time spent on today's encounter was 52 minutes which included time spent in counseling the patient/family regarding diagnosis and treatment plan as listed above, goals of care, and symptom management. Case was discussed with nursing staff,
specialists, and care coordinators/case management. All labs and imaging personally reviewed by me. Remainder the time spent in detailed review of previous records, lab data, imaging, and other medical provider documentation.
Anticipated Discharge: > 48 hours
Subjective/Interval History
-
Date of Service: September 26, 2024
Patient is still short of breath but less. Still complain of right ankle pain. No chest pain. Afebrile
Objective Data
-
Labs:
Laboratory Results
09/26/24
02:32
Hgb 8.7 L
Hct 29.3 L
Sodium 141
Potassium 3.3 L
Chloride 104
Carbon Dioxide 28
BUN 51 H
Creatinine 1.7 H
Glucose 112 H
Calcium 7.5 L
Vital Signs:
Vital Signs
Temp Pulse Resp BP Pulse Ox
98.6 F 60 20 118/61 95
09/26/24 12:05 09/26/24 13:00 09/26/24 12:05 09/26/24 12:05 09/26/24 12:05
I&O
09/25/24 09/26/24 09/27/24
06:59 06:59 06:59
Intake Total 500 / 500 1230 / 1230
Output Total 2049 3850 / 3850 800 / 800
Balance -1550 / -1550 -2620 / -2620 -800 / -800
[2024-09-26] MEDS: FERRLECIT 110 MG IV (15:10)
[2024-09-26] MEDS: LIPITOR 40 MG PO (17:36)
[2024-09-26] MEDS: ZITHROMAX 500 MG PO (21:39)
[2024-09-26] MEDS: FLOMAX 0.4 MG PO (21:40)
[2024-09-26] MEDS: PROSCAR 5 MG PO (21:40)
[2024-09-26] MEDS: PROZAC 40 MG PO (21:40)
[2024-09-26] MEDS: REMERON 15 MG PO (21:40)
[2024-09-27] VITALS (7 sets, daily range): BP systolic 116–139; BP diastolic 48–61; PULSE 64–67; BMI 39.7
[2024-09-27] MEDS: ROCEPHIN 2000 MG IV (02:52)
[2024-09-27] MEDS: STERILE WATER FOR INJECTION 20 ML IV (02:53)
[2024-09-27 06:07] LABS: Hematocrit 25.8 % (39.0-52.0); Hemoglobin 7.8 g/dL (13.0-18.0)
[2024-09-27 06:33] LABS: Blood Urea Nitrogen 51 mg/dl (9-20); Calcium 7.2 mg/dl (8.4-10.2); Carbon Dioxide 30 mmol/L (22-30); Chloride 103 mmol/L (98-107); Estimated Creatinine Clearance 49 ml/min; Glucose 134 mg/dl (70-99); Magnesium 2.6 mg/dl (1.6-2.3); Potassium 3.4 mmol/L (3.5-5.1); Sodium 140 mmol/L (135-145); eGFR 45.62
[2024-09-27] MEDS: SPIRIVA RESPIMAT 2.5 MCG 2 PUFF INH (07:27)
[2024-09-27] MEDS: LASIX 80 MG IV ×2 (07:44→15:15)
[2024-09-27] MEDS: PRADAXA 150 MG PO ×2 (07:45→21:08)
[2024-09-27] MEDS: FARXIGA 10 MG PO (07:45)
[2024-09-27] MEDS: APRESOLINE 25 MG PO ×3 (07:46→21:07)
[2024-09-27] MEDS: COLCHICINE 0.6 MG PO (07:46)
[2024-09-27] MEDS: VITAMIN B-12 1000 MCG PO (07:46)
[2024-09-27] MEDS: LOPRESSOR 25 MG PO ×2 (07:46→21:08)
[2024-09-27] MEDS: DELTASONE 30 MG PO ×2 (07:46→21:09)
[2024-09-27] MEDS: KCL 20 MEQ PO ×2 (07:46→21:08)
[2024-09-27] MEDS: FOLVITE 1 MG PO (07:47)
[2024-09-27] MEDS: ZYLOPRIM 100 MG PO (07:47)
[2024-09-27] MEDS: KCL 40 MEQ PO (08:44)
--- NOTE | 2024-09-27 11:58 | W.PN.HOSP.TC ---
Today's Communication/Plan
-
IV diuretics. Oral steroids.
Assessment / Plan
Assessment / Plan
Physical exam:
General: Acutely ill
HEENT: Normocephalic, Atraumatic and Moist Mucous Membranes
Respiratory: Bilateral coarse crackles; Negative Rhonchi, and wheezes
Cardiac: Regular Rhythm and S1/S2
GI: Soft, Nontender and Nondistended
Musculoskeletal: Bilateral lower extremity edema 3+ but decreasing and wrapped up today. Right ankle tender much improved. No Clubbing, No Cyanosis
Neuro: Awake, Alert and Oriented, no neurological deficit
Psych: Calm
A/P:
Acute hypoxic respiratory insufficiency:
Multifactorial etiology related to heart failure, pneumonia, obesity with probable MARIXA/OHS
On supplemental oxygen today--> titrate as able
Supplemental oxygen as needed and wean as able
Diuretics and antibiotics
Acute on Chronic HFpEF:
Continue IV Lasix 80 mg twice a day
Cardiology dosing metolazone as needed
Monitor ins and outs and daily weight
On GDMT---> beta-blockers, metoprolol tartrate 25 mg twice a day, Farxiga 10 mg p.o. daily, on hydralazine 25 mg p.o. 3 times daily.
Cardiology consult appreciated
Community-acquired LLL PNA:
Continue IV ceftriaxone and oral azithromycin.
WBC 14.9 down to--> 10.2
Gout--> acute flare likely due to current diuresis
Responding to steroids--> continue tapering course
Continue low-dose colchicine
Continue allopurinol since he was on it.
Hypokalemia:
Replete and trend
ZA/CKD IIIa:
Likely cardiorenal component
Creatinine improving at 1.5 today
Avoid nephrotoxic
Continue to monitor renal function
Chronic iron Deficiency Anemia/history of colonic Angiodysplastic Lesions:
Continue IV iron infusion
Today hemoglobin 7.8
On antiplatelet and anticoagulation
COPD
Stable
Continue inhalers
No need for systemic steroid at the moment
Permanent Atrial Fibrillation
Continue rate control, beta-keyana of metoprolol tartrate 25 mg twice a day
Continue anticoagulation, Pradaxa 150 mg p.o. twice a day
CAD:
Chest pain-free
Continue anti-ischemic regimen of dual antiplatelet therapy, beta-blockers, and statins.
Hypertension:
Continue usual medications
Hyperlipidemia:
Continue statin
BPH
Continue tamsulosin 0.4 mg p.o. nightly
Morbid Obesity
Encourage healthy diet and increased activity with goal of weight loss. Bariatric surgery could be considered as outpatient.
DVT prophylaxis:
Continue Pradaxa
Code Status:
DNR
Total time spent on today's encounter was 52 minutes which included time spent in counseling the patient/family regarding diagnosis and treatment plan as listed above, goals of care, and symptom management. Case was discussed with nursing staff,
specialists, and care coordinators/case management. All labs and imaging personally reviewed by me. Remainder the time spent in detailed review of previous records, lab data, imaging, and other medical provider documentation.
Anticipated Discharge: > 48 hours
Subjective/Interval History
-
Date of Service: September 27, 2024
Patient feels better overall. Less shortness of breath. Less ankle pain. Patient able to move okay to bathroom and hallway today. Remains on oxygen. Afebrile
Objective Data
-
Labs:
Laboratory Results
09/27/24
05:24
Hgb 7.8 L
Hct 25.8 L
Sodium 140
Potassium 3.4 L
Chloride 103
Carbon Dioxide 30
BUN 51 H
Creatinine 1.5 H
Glucose 134 H
Calcium 7.2 L
Vital Signs:
Vital Signs
Temp Pulse Resp BP Pulse Ox
97.9 F 62 18 123/58 95
09/27/24 11:31 09/27/24 11:31 09/27/24 11:31 09/27/24 11:31 09/27/24 11:31
I&O
09/26/24 09/27/24 09/28/24
06:59 06:59 06:59
Intake Total 1230 / 1230 120 / 120
Output Total 3850 / 3850 3300 / 3300
Balance -2620 / -2620 -3180 / -3180
--- NOTE | 2024-09-27 12:18 | W.PN.CD ---
Addendum entered and electronically signed by Aldo Plasencia MD 09/27/24 13:10:
I saw and examined the patient.
The MOLD INJECTOR's note was reviewed and I agree with the note.
resp status stable. Remains on O2 . (not on O2 at home). Still with edema. Cr down to 1.5. Weight trending down an BP stable
- Continue diuresis
- monitor weight and I/O
- monitor renal function
- monitor orhtostatics
Original Note:
Today's Communication / Plan
-
Patient feeling much improved overall. Still with rales to right base and remains on O2. Wean O2 as tolerated. Replace potassium (already underway), continue IV diuresis.
Impression / Plan
-
Ihxke-tq-lzwippy HFpEF: improving
-Continue IV diuresis, which requires intensive monitoring. OP diuretic dosing was torsemide 80 mg PO BID (increased from previous dosing after last admission)->received metolazone 09/25 with diuresis
-Continue Farxiga. MRA stopped for OH in recent past/ACEI stopped in the past due to ZA.
-Echo 06/19/24: Left ventricular ejection fraction is 60-65%. Normal regional wall motion. Enlarged right ventricular size. Normal right ventricular systolic function. Aortic valve is poorly visualized. Likely mild aortic stenosis; peak/mean
gradients 13/8 mmHg, calculated BRIONNA 1.8 cm2. Mild tricuspid regurgitation. Estimated pulmonary artery pressure of 60-65 mmHg, assuming a right atrial pressure of 8 mmHg. Compared to previous echo on 12/11/2023, mild aortic stenosis is now noted and
the PASP has increased (previously 30 mmHg).
-Pulmonary hypertension noted, diuretic plan as above. Of note, patient does have chronic lymphedema.
-CHF education/diet-he is typically compliant
-maybe anemia contributing to exacerbation
.
NSVT:
-none seen on tele review overnight
Anemia:
-GI work up in 06/2024 with angiodysplastic lesion --nonbleeding on colol
-iron studies ordered- management per primary
Possible PNA:
-getting ABX
-management per primary
Permanent AFIB:
-stable, rate controlled
-continue metoprolol and Pradaxa
CAD:
-Cath 06/20/23: Codominant circulation with a long, 30% mid LAD lesion culminating in an occlusive 70% lesion (IFR = 0.65), status post successful PCI of the entire lesion (overlapping Xience Skypoint 3.0 x 28 JANETTE, 3.25 x 8 JANETTE, postdilated with a
3.0 NC balloon) with reduction in all stenoses to 0%, maintaining TOMY-3 flow. Severely elevated filling pressures (LVEDP = 24 mmHg, PCWP = 25 mmHg at 134.3 kg). Moderate pulmonary hypertension, WHO group 2.
-continue Pradaxa, statin, BB
Gout:
-improved with tx
CKD:
-monitor with diuresis
HTN:
-continue meds and monitor with diuresis
Mild aortic stenosis:
-monitor over time by echo
Lymphedema:
-eleuterio wraps
Physical Exam
Vital Signs/Labs
Vital Signs
Temp Pulse Resp BP Pulse Ox
97.9 F 62 18 123/58 95
09/27/24 11:31 09/27/24 11:31 09/27/24 11:31 09/27/24 11:31 09/27/24 11:31
09/26/24 09/27/24 09/28/24
06:59 06:59 06:59
Actual Weight 126.7 kg 125.418 kg
09/27/24 05:24
09/27/24 05:24
Magnesium 2.6 mg/dl (1.6-2.3) H 09/27/24 05:24
09/23/24
21:03
Fhz-W-Coiqfvkiifa Pept 5810
LAB Results
09/25/24
06:25
Troponin I 0.012
Physical Exam
Constitutional: No acute distress
EENT: Anicteric
Cardiovascular: Rhythm/rate is irregular
Respiratory: Crackles Present (right base)
Neuro/Psych: AO x 3
Data Reviewed
-
Date of Service: September 27, 2024
EKG: Other (AFIB)
Labs: Labs Reviewed by me
[2024-09-27] MEDS: FERRLECIT 110 MG IV (13:01)
[2024-09-27] MEDS: LIPITOR 40 MG PO (17:19)
[2024-09-27] MEDS: REMERON 15 MG PO (21:08)
[2024-09-27] MEDS: PROSCAR 5 MG PO (21:08)
[2024-09-27] MEDS: PROZAC 40 MG PO (21:08)
[2024-09-27] MEDS: FLOMAX 0.4 MG PO (21:08)
[2024-09-27] MEDS: ZITHROMAX 500 MG PO (21:09)
[2024-09-28] MEDS: ROCEPHIN 2000 MG IV (03:20)
[2024-09-28] MEDS: STERILE WATER FOR INJECTION 20 ML IV (03:21)
[2024-09-28 03:30] VITALS: BP 107/58
[2024-09-28 06:00] VITALS: BMI 39.4
[2024-09-28 06:48] LABS: Hemoglobin 8.2 g/dL (13.0-18.0)
[2024-09-28 07:21] LABS: Blood Urea Nitrogen 54 mg/dl (9-20); Calcium 7.9 mg/dl (8.4-10.2); Carbon Dioxide 32 mmol/L (22-30); Chloride 104 mmol/L (98-107); Estimated Creatinine Clearance 49 ml/min; Glucose 127 mg/dl (70-99); Potassium 3.9 mmol/L (3.5-5.1); Sodium 141 mmol/L (135-145); eGFR 45.62
[2024-09-28] MEDS: SPIRIVA RESPIMAT 2.5 MCG 2 PUFF INH (07:23)
[2024-09-28] MEDS: LASIX 80 MG IV ×2 (07:34→15:41)
[2024-09-28] MEDS: FARXIGA 10 MG PO (07:35)
[2024-09-28] MEDS: LOPRESSOR 25 MG PO ×2 (07:35→19:45)
[2024-09-28] MEDS: PRADAXA 150 MG PO ×2 (07:35→19:45)
[2024-09-28] MEDS: ZYLOPRIM 100 MG PO (07:35)
[2024-09-28] MEDS: DELTASONE 40 MG PO (07:35)
[2024-09-28] MEDS: KCL 20 MEQ PO ×2 (07:36→19:48)
[2024-09-28] MEDS: COLCHICINE 0.6 MG PO (07:36)
[2024-09-28] MEDS: VITAMIN B-12 1000 MCG PO (07:36)
[2024-09-28] MEDS: FOLVITE 1 MG PO (07:36)
[2024-09-28] MEDS: APRESOLINE 25 MG PO ×3 (07:36→21:06)
[2024-09-28 07:55] VITALS: BP 154/68
--- NOTE | 2024-09-28 10:56 | W.PN.HOSP.TC ---
Today's Communication/Plan
-
IV Lasix. Oral steroids tapering. Oral antibiotics.
Assessment / Plan
Assessment / Plan
Physical exam:
General: Acute on chronically ill. No distress
HEENT: Normocephalic, Atraumatic and Moist Mucous Membranes
Respiratory: No crackles; Negative Rhonchi, and wheezes
Cardiac: Regular Rhythm and S1/S2
GI: Soft, Nontender and Nondistended
Musculoskeletal: Bilateral lower extremity edema decreasing and wrapped up. Right ankle tenderness much improved. No Clubbing, No Cyanosis
Neuro: Awake, Alert and Oriented, no neurological deficit
Psych: Calm
A/P:
Acute hypoxic respiratory insufficiency:
Multifactorial etiology related to heart failure, pneumonia, obesity with probable MARIXA/OHS
On supplemental oxygen today--> titrate as able
Will assess for home oxygen need
Diuretics and antibiotics
Acute on Chronic HFpEF:
Improving
Continue IV Lasix 80 mg twice a day
Cardiology dosing metolazone as needed
Continue negative balance
Monitor ins and outs and daily weight
On GDMT---> beta-blockers, metoprolol tartrate 25 mg twice a day, Farxiga 10 mg p.o. daily, on hydralazine 25 mg p.o. 3 times daily.
Cardiology consult appreciated
Community-acquired LLL PNA:
Change IV ceftriaxone to Omnicef
To complete oral azithromycin today
WBC 14.9 down to--> 10.2
Gout--> acute flare likely due to current diuresis but improving
Responding to steroids--> continue tapering course and will decrease from 40 to 30 mg of prednisone
Continue low-dose colchicine
Continue allopurinol since he was on it.
Hypokalemia:
Stable today
Continue potassium supplement while on diuretics
ZA/CKD IIIa:
Likely cardiorenal component
Creatinine improving at 1.5 today
Avoid nephrotoxic
Continue to monitor renal function
Chronic iron Deficiency Anemia/history of colonic Angiodysplastic Lesions:
Complete course of IV iron infusion
Today hemoglobin stable at 8.2
On antiplatelet and anticoagulation
COPD
Stable
Continue inhalers
No need for systemic steroid from copd since there is no evidence of exacerbation but on steroids for gout.
Assess for home oxygen needs
Permanent Atrial Fibrillation
Continue rate control, beta-keyana of metoprolol tartrate 25 mg twice a day
Continue anticoagulation, Pradaxa 150 mg p.o. twice a day
CAD:
Chest pain-free
Continue anti-ischemic regimen of dual antiplatelet therapy, beta-blockers, and statins.
Hypertension:
Continue usual medications
Hyperlipidemia:
Continue statin
BPH
Continue tamsulosin 0.4 mg p.o. nightly and finasteride 5 mg p.o. every evening
Morbid Obesity
Encourage healthy diet and increased activity with goal of weight loss. Bariatric surgery could be considered as outpatient.
DVT prophylaxis:
Continue Pradaxa
Code Status:
DNR
Total time spent on today's encounter was 52 minutes which included time spent in counseling the patient/family regarding diagnosis and treatment plan as listed above, goals of care, and symptom management. Case was discussed with nursing staff,
specialists, and care coordinators/case management. All labs and imaging personally reviewed by me. Remainder the time spent in detailed review of previous records, lab data, imaging, and other medical provider documentation.
Anticipated Discharge: 24 - 48 hours
Subjective/Interval History
-
Date of Service: September 28, 2024
Patient feels better overall, less shortness of breath. Minimal ankle pain today. Less peripheral edema. Still on supplemental oxygen.
Objective Data
-
Labs:
Laboratory Results
09/28/24
06:13
Hgb 8.2 L
Hct 28.0 L
Sodium 141
Potassium 3.9
Chloride 104
Carbon Dioxide 32 H
BUN 54 H
Creatinine 1.5 H
Glucose 127 H
Calcium 7.9 L
Vital Signs:
Vital Signs
Temp Pulse Resp BP Pulse Ox
97.6 F 61 20 154/68 95
09/28/24 07:55 09/28/24 07:55 09/28/24 07:55 09/28/24 07:55 09/28/24 07:55
I&O
09/27/24 09/28/24 09/29/24
06:59 06:59 06:59
Intake Total 120 / 120 960 / 960
Output Total 3300 / 3300 2950 / 2950
Balance -3180 / -318 -1989 /
[2024-09-28 11:19] VITALS: BP 145/70
--- NOTE | 2024-09-28 12:14 | W.PN.CD ---
Today's Communication / Plan
-
- Overall patient says he is feeling quite well. Down approximately 7 kg. 124 kg( 275 lbs) He is currently 1 kg below his weight on 09/19/2024 at time of last discharge. Patient hoping to be discharged in the next 24 hours. He does remain on O2
and is not on oxygen at home. Would try and wean O2. If respiratory status is stable and he is able to be off O2 challenge will be to keep volume off in outpatient setting. He was discharged on torsemide 80 mg twice daily in the past.He did
receive 1 dose of metolazone 2.5 mg this hospitalization which he tolerated at that point his weight was 128 to 129 kg. May consider using metolazone 2.5 mg if he gains > 4 ( 179lb) pounds at home
.
Patient will be reassessed tomorrow.
Possible discharge in 24 to 48 hours
Impression / Plan
-
Ihubn-os-ipwkkga HFpEF: improving
-Continue IV diuresis, which requires intensive monitoring. OP diuretic dosing was torsemide 80 mg PO BID (increased from previous dosing after last admission)->received metolazone 09/25 with diuresis
-Continue Farxiga. MRA stopped for OH in recent past/ACEI stopped in the past due to ZA.
-Echo 06/19/24: Left ventricular ejection fraction is 60-65%. Normal regional wall motion. Enlarged right ventricular size. Normal right ventricular systolic function. Aortic valve is poorly visualized. Likely mild aortic stenosis; peak/mean
gradients 13/8 mmHg, calculated BRIONNA 1.8 cm2. Mild tricuspid regurgitation. Estimated pulmonary artery pressure of 60-65 mmHg, assuming a right atrial pressure of 8 mmHg. Compared to previous echo on 12/11/2023, mild aortic stenosis is now noted and
the PASP has increased (previously 30 mmHg).
-Pulmonary hypertension noted, diuretic plan as above. Of note, patient does have chronic lymphedema.
-CHF education/diet-he is typically compliant
- Treatment of anemia as directed by primary team
- Overall patient says he is feeling quite well. Down approximately 7 kg. 124 kg( 275 lbs) He is currently 1 kg below his weight on 09/19/2024 at time of last discharge. Patient hoping to be discharged in the next 24 hours. He does remain on
O2 and is not on oxygen at home. Would try and wean O2. If respiratory status is stable and he is able to be off O2 challenge will be to keep volume off in outpatient setting. He was discharged on torsemide 80 mg twice daily in the past.He did
receive 1 dose of metolazone 2.5 mg this hospitalization which he tolerated at that point his weight was 128 to 129 kg. May consider using metolazone 2.5 mg if he gains > 4 ( 179lb) pounds at home
.
NSVT:
-none seen on tele review overnight
Anemia:
-GI work up in 06/2024 with angiodysplastic lesion --nonbleeding on colol
-iron studies ordered- management per primary
Possible PNA:
-getting ABX
-management per primary
Permanent AFIB:
-stable, rate controlled
-continue metoprolol and Pradaxa
CAD:
-Cath 06/20/23: Codominant circulation with a long, 30% mid LAD lesion culminating in an occlusive 70% lesion (IFR = 0.65), status post successful PCI of the entire lesion (overlapping Xience Skypoint 3.0 x 28 JANETTE, 3.25 x 8 JANETTE, postdilated with a
3.0 NC balloon) with reduction in all stenoses to 0%, maintaining TOMY-3 flow. Severely elevated filling pressures (LVEDP = 24 mmHg, PCWP = 25 mmHg at 134.3 kg). Moderate pulmonary hypertension, WHO group 2.
-continue Pradaxa, statin, BB
Gout:
-improved with tx
CKD:
-monitor with diuresis
HTN:
-continue meds and monitor with diuresis
Mild aortic stenosis:
-monitor over time by echo
Lymphedema:
-eleuterio wraps
Physical Exam
Vital Signs/Labs
Vital Signs
Temp Pulse Resp BP Pulse Ox
97.8 F 53 20 145/70 98
09/28/24 11:19 09/28/24 11:19 09/28/24 11:19 09/28/24 11:19 09/28/24 11:19
09/27/24 09/28/24 09/29/24
06:59 06:59 06:59
Actual Weight 125.418 kg 124.539 kg
09/28/24 06:13
09/28/24 06:13
Magnesium 2.6 mg/dl (1.6-2.3) H 09/27/24 05:24
09/23/24
21:03
Org-J-Rwrcuztrbno Pept 5810
Physical Exam
Constitutional: No acute distress
Cardiovascular: Rhythm & rate is regular
Respiratory: Respiratory effort normal
GI: Non tender, Normal bowel sounds and Abdomen is tender
Neuro/Psych: Alert, Oriented and AO x 3
Data Reviewed
-
Date of Service: September 28, 2024
Medical Decision Making: Reviewed Test Results
X-Ray/CT/US/MRI/NUC/PET: Report Reviewed by me
Medical Tests (PFT, Pathology etc): Report Reviewed by me
Labs: Labs Reviewed by me
[2024-09-28] MEDS: OMNICEF 300 MG PO ×2 (12:21→19:44)
[2024-09-28] MEDS: FERRLECIT 110 MG IV (14:19)
[2024-09-28 15:55] VITALS: BP 163/71
[2024-09-28] MEDS: LIPITOR 40 MG PO (18:27)
[2024-09-28 19:27] VITALS: BP 143/73
[2024-09-28] MEDS: PROSCAR 5 MG PO (19:49)
[2024-09-28] MEDS: FLOMAX 0.4 MG PO (19:49)
[2024-09-28] MEDS: REMERON 15 MG PO (19:54)
[2024-09-28] MEDS: ZITHROMAX 500 MG PO (19:55)
[2024-09-28] MEDS: PROZAC 40 MG PO (19:56)
[2024-09-28 23:35] VITALS: BP 143/59
[2024-09-29 03:00] VITALS: BP 136/61
[2024-09-29 06:00] VITALS: BMI 39.3
--- NOTE | 2024-09-29 06:28 | W.PN.HOSP.TC ---
Addendum entered and electronically signed by Alana Viveros MD 09/29/24 15:27:
Correction to documentation
CAD:
Chest pain-free
Continue Pradaxa [not dual antiplatelet as noted below], beta-blockers, and statins.
Original Note:
Today's Communication/Plan
-
discharge
Assessment / Plan
Assessment / Plan
Physical exam:
General: No acute distress. Appears comfortable at this time.
HEENT: Normocephalic, Atraumatic and Moist Mucous Membranes
Respiratory: No crackles; Negative Rhonchi, and wheezes
Cardiac: Regular Rhythm and S1/S2
GI: Soft, Nontender and Nondistended
Musculoskeletal: Bilateral lower extremity MEGAN wrapped clean dry intact. No Clubbing, No Cyanosis
Neuro: AOx3 conversant coherent
Psych: Calm
A/P:84M Morbid Obesity CAD stent HTN HLD HFpEF Chronic Lymphedema Afib Pradaxa MARIXA COPD Gout here for pneumonia and CHF exacerbation
Acute hypoxic respiratory insufficiency (resolved)
Multifactorial etiology related to heart failure, pneumonia, obesity with probable MARIXA/OHS
weaned off oxygen
Home oxygen assessment 09/28/24 appreciated no needs.
Diuretics and antibiotics
Acute on Chronic HFpEF:
Significantly Improved
IV Lasix 80 mg twice a day transitioned back to home Torsemide regimen as per Cardio
Cardiology eval appreciated stable for discharge
some asymptomatic bradycardia overnight noted ok to cont metoprolol and no need for pacemaker as per Cardio
On GDMT---> beta-blockers, metoprolol tartrate 25 mg twice a day, Farxiga 10 mg p.o. daily, on hydralazine 25 mg p.o. 3 times daily.
Community-acquired LLL PNA:
Change IV ceftriaxone to Omnicef
completed oral azithromycin today
Leukocytosis resolved
planned for total 7 days abx (09/30/24 last day for abx)
Gout--> acute flare likely due to current diuresis but improving
Responded well to steroids--> continue prednisone taper
Continue low-dose colchicine
Continue home allopurinol
Hypokalemia resolved
Continue potassium supplement while on diuretics
ZA/CKD IIIa:
Likely cardiorenal component
Creatinine improved from initial 1.8 to 1.5
consistently stable since improvement
Chronic iron Deficiency Anemia/history of colonic Angiodysplastic Lesions:
Completed course of IV iron infusion
Hgb consistently stable
On antiplatelet and anticoagulation
COPD
Stable respiratory status on room air, weaned off oxygen supplementation as above
Continue home inhalers
no bronchospasm noted
Permanent Atrial Fibrillation
Continue rate control, metoprolol tartrate 25 mg twice a day
Continue anticoagulation, Pradaxa 150 mg p.o. twice a day
CAD:
Chest pain-free
Continue anti-ischemic regimen of dual antiplatelet therapy, beta-blockers, and statins.
Hypertension:
Continue usual medications
Hyperlipidemia:
Continue statin
BPH
Continue tamsulosin 0.4 mg p.o. nightly and finasteride 5 mg p.o. every evening
Morbid Obesity
Encourage healthy diet and increased activity with goal of weight loss. Bariatric surgery could be considered as outpatient.
DVT prophylaxis:
Continue Pradaxa
Code Status:
DNR
Home oxygen assessment appreciated no needs. Endorses no concerns with regards to ambulation, uses walker at baseline, was able to ambulate w walker 180 ft during home oxygen assessment without significant issues. Agreeable to Home VN services for
further evaluation/treatment PT/OT needs.
Medically stable for discharge home with home services and outpatient follow up recommendations.
Total Time Preparing Discharge __45 minutes including examination of the patient, summary of the hospital stay, instructions for continuing care to all relevant caregivers; and preparation of discharge records, prescriptions, and referral
forms if necessary.
Anticipated Discharge: Today
Subjective/Interval History
-
Date of Service: September 29, 2024
no acute distress, sitting up comfortably in bed. Reports overall feeling well, significantly improved since admission. Stable respiratory status on room air. Denies new acute issues. Eager to go home.
Objective Data
-
Labs:
Laboratory Results
09/29/24
06:13
Sodium Pending
Potassium Pending
Chloride Pending
Carbon Dioxide Pending
BUN Pending
Creatinine Pending
Glucose Pending
Calcium Pending
Vital Signs:
Vital Signs
Temp Pulse Resp BP Pulse Ox
97.4 F 60 19 136/61 92
09/29/24 03:00 09/29/24 03:00 09/29/24 03:00 09/29/24 03:00 09/29/24 03:00
I&O
09/27/24 09/28/24 09/29/24
06:59 06:59 06:59
Intake Total 120 / 120 960 / 960 1320 / 1320
Output Total 3300 / 3300 2950 / 2950 1620 / 1620
Balance -3180 / -3180 -1989 / -1989 -300 / -300
[2024-09-29] MEDS: TYLENOL 650 MG PO (06:38)
[2024-09-29] MEDS: SPIRIVA RESPIMAT 2.5 MCG 2 PUFF INH (07:12)
[2024-09-29 07:20] VITALS: BP 155/79
[2024-09-29 07:48] LABS: Blood Urea Nitrogen 61 mg/dl (9-20); Calcium 8.2 mg/dl (8.4-10.2); Carbon Dioxide 37 mmol/L (22-30); Chloride 104 mmol/L (98-107); Estimated Creatinine Clearance 49 ml/min; Glucose 92 mg/dl (70-99); Potassium 3.6 mmol/L (3.5-5.1); Sodium 144 mmol/L (135-145); eGFR 45.62
--- NOTE | 2024-09-29 08:15 | W.PN.CD ---
Today's Communication / Plan
-
- Stable for discharge
- OP diuretic dosing - torsemide 80 mg PO BID and as needed metolazone
Impression / Plan
-
Veyxz-vw-wgnhstc HFpEF: improving
- Status post IV diuresis, which requires intensive monitoring. OP diuretic dosing - torsemide 80 mg PO BID and as needed metolazone
-Continue Farxiga. MRA stopped for OH in recent past/ACEI stopped in the past due to ZA.
-Echo 06/19/24: Left ventricular ejection fraction is 60-65%. Normal regional wall motion. Enlarged right ventricular size. Normal right ventricular systolic function. Aortic valve is poorly visualized. Likely mild aortic stenosis; peak/mean
gradients 13/8 mmHg, calculated BRIONNA 1.8 cm2. Mild tricuspid regurgitation. Estimated pulmonary artery pressure of 60-65 mmHg, assuming a right atrial pressure of 8 mmHg. Compared to previous echo on 12/11/2023, mild aortic stenosis is now noted and
the PASP has increased (previously 30 mmHg).
-Pulmonary hypertension noted, diuretic plan as above. Of note, patient does have chronic lymphedema.
-CHF education/diet-he is typically compliant
- Treatment of anemia as directed by primary team
- Overall patient says he is feeling quite well. Down approximately 7 kg. 124 kg( 275 lbs) He is currently 1 kg below his weight on 09/19/2024 at time of last discharge. Patient hoping to be discharged in the next 24 hours. He does remain on
O2 and is not on oxygen at home. Would try and wean O2. If respiratory status is stable and he is able to be off O2 challenge will be to keep volume off in outpatient setting. He was discharged on torsemide 80 mg twice daily in the past.He did
receive 1 dose of metolazone 2.5 mg this hospitalization which he tolerated at that point his weight was 128 to 129 kg. May consider using metolazone 2.5 mg if he gains > 4 ( 179lb) pounds at home
.
Bradycardia:
- Asymptomatic bradycardia -heart rate did go down to 40s overnight but remained asymptomatic.
- Longest pause was 2.1 seconds.
- Permanent A-fib with slow ventricular response. Completely asymptomatic. Tolerating it well.
- Unless patient starts having symptoms, we will not pursue pacemaker at this time.
NSVT:
-none seen on tele review overnight
Anemia:
-GI work up in 06/2024 with angiodysplastic lesion --nonbleeding on colol
-iron studies ordered- management per primary
Possible PNA:
-getting ABX
-management per primary
Permanent AFIB:
-stable, rate controlled
-continue metoprolol and Pradaxa
CAD:
-Cath 06/20/23: Codominant circulation with a long, 30% mid LAD lesion culminating in an occlusive 70% lesion (IFR = 0.65), status post successful PCI of the entire lesion (overlapping Xience Skypoint 3.0 x 28 JANETTE, 3.25 x 8 JANETTE, postdilated with a
3.0 NC balloon) with reduction in all stenoses to 0%, maintaining TOMY-3 flow. Severely elevated filling pressures (LVEDP = 24 mmHg, PCWP = 25 mmHg at 134.3 kg). Moderate pulmonary hypertension, WHO group 2.
-continue Pradaxa, statin, BB
Gout:
-improved with tx
CKD:
-monitor with diuresis
HTN:
-continue meds and monitor with diuresis
Mild aortic stenosis:
-monitor over time by echo
Lymphedema:
-eleuterio wraps
Physical Exam
Vital Signs/Labs
Vital Signs
Temp Pulse Resp BP Pulse Ox
97.4 F 62 16 136/61 92
09/29/24 03:00 09/29/24 07:14 09/29/24 07:14 09/29/24 03:00 09/29/24 03:00
09/28/24 09/29/24 09/30/24
06:59 06:59 06:59
Actual Weight 124.539 kg 124.369 kg
09/28/24 06:13
09/29/24 06:13
Magnesium 2.6 mg/dl (1.6-2.3) H 09/27/24 05:24
09/23/24
21:03
Pra-Y-Fjgbonbzzyg Pept 5810
Physical Exam
Constitutional: No acute distress and Comfortable
EENT: Anicteric and Moist mucous membranes
Cardiovascular: Pedal edema is absent, Rhythm/rate is irregular and JVD present
Respiratory: Respiratory effort normal and Lungs clear to auscul.
GI: Soft, Non tender and Normal bowel sounds
Neuro/Psych: Alert, Oriented and AO x 3
Data Reviewed
-
Date of Service: September 29, 2024
Medical Decision Making: Reviewed Test Results, Test Interpretation and Review of Case with other Provider
EKG: Tracing Personally Visualized and interpreted
Echo: Report Reviewed by me
Labs: Labs Reviewed by me
Old Records: Reviewed
[2024-09-29] MEDS: PRADAXA 150 MG PO (08:25)
[2024-09-29] MEDS: DELTASONE 30 MG PO (08:26)
[2024-09-29] MEDS: LOPRESSOR 25 MG PO (08:26)
[2024-09-29] MEDS: ZYLOPRIM 100 MG PO (08:27)
[2024-09-29] MEDS: FARXIGA 10 MG PO (08:27)
[2024-09-29] MEDS: APRESOLINE 25 MG PO (08:27)
[2024-09-29] MEDS: DEMADEX 80 MG PO (08:27)
[2024-09-29] MEDS: COLCHICINE 0.6 MG PO (08:27)
[2024-09-29] MEDS: KCL 20 MEQ PO (08:27)
[2024-09-29] MEDS: VITAMIN B-12 1000 MCG PO (08:28)
[2024-09-29] MEDS: FOLVITE 1 MG PO (08:28)
[2024-09-29] MEDS: OMNICEF 300 MG PO ×2 (08:28→16:14)
[2024-09-29 11:33] VITALS: BP 143/70
[2024-09-29] MEDS: FERRLECIT 110 MG IV (13:53)
--- NOTE | 2024-09-29 14:35 | CM ---
Chart reviewed and plan is for patient to return to home with [facility] visiting nurses.
[facility]
[phone]

Plan; Home with [facility] visiting nurses.
[2024-09-29 15:00] VITALS: BP 145/75
--- NOTE | 2024-09-29 15:26 | W.DCSUMMARY ---
Discharge Summary
Discharge Data
Date of Admission: 09/24/24
Date of Discharge: 09/29/24
-
Pending Results: No
Hospital Course
84M Morbid Obesity CAD stent HTN HLD HFpEF Chronic Lymphedema Afib Pradaxa MARIXA COPD Gout here for pneumonia and CHF exacerbation. Acute hypoxic respiratory insufficiency resolved (multifactorial etiology related to heart failure, pneumonia, obesity
with probable MARIXA/OHS), weaned off oxygen supplementation. Subsequent Home oxygen assessment appreciated no needs. Acute on Chronic HFpEF, patient improved significantly with IV Lasix 80 mg twice a day- eventually transitioned back to home
Torsemide regimen as per Cardio. Some asymptomatic bradycardia was noted overnight. Ok to cont metoprolol and no need for pacemaker as per Cardio. Continued metoprolol tartrate 25 mg twice a day, Farxiga 10 mg p.o. daily, and hydralazine 25 mg
p.o. 3 times daily. Community-acquired LLL PNA, patient was treated with IV ceftriaxone, eventually de-escalated to Omnicef with clinical improvement. Completed course of oral azithromycin. Leukocytosis resolved. Planned for total 7 days abx
treatment (09/30/24 last day for abx). Acute gout flare likely due to diuresis, pt responded well to steroids, continued prednisone taper on discharge. ZA on CKD III,
likely cardiorenal, kidney function improved with diuresis. Chronic iron Deficiency Anemia/history of colonic Angiodysplastic Lesions, patient completed a course of IV iron infusion during stay. Medically stable, patient was discharged home with
home services and outpatient follow up recommendations.
Discharge Plan
-
Patient Disposition: Home with Home Care
Discharge Diagnosis/Procedures: Acute hypoxic respiratory insufficiency (resolved)
Acute on Chronic Heart Failure with Preserved Ejection Fraction
Pneumonia
Gout Flare
Acute on Chronic Kidney disease stage III
Chronic iron Deficiency Anemia/history of colonic Angiodysplastic Lesions
COPD
Permanent Atrial Fibrillation
Coronary Artery Disease
Hypertension
Hyperlipidemia
BPH
Morbid Obesity
Condition: Fair
Diet: Low Cholesterol, 2 Gram Sodium and Restrict fluids to 48 oz
Activity: As tolerated and With Walker
Driving Restrictions: Not until seen by your Dr
Bathing Restrictions: None
Blood Work: Repeat CBC and BMP with primary care provider in 1 week of discharge
Others Tests: repeat Chest X-ray with primary care provider in 1 month of discharge.
Other Services: PT and OT
Specialty Instructions: Weigh Daily- Call MD for wt gain/loss 3 lbs overnight/5 lbs in 1 week
Activity Restrictions/Additional Instructions:
Follow up with primary care provider in 1 week of discharge and Cardiology in 2-4 weeks of discharge.
Cefdinir prescribed for pneumonia. 09/30/24 last day for antibiotics
Prednisone taper prescribed for gout flare:
30 mg daily x 3 days, 20 mg daily x 3 days, then 10 mg daily x 3 days, then stop
Torsemide 80 mg twice a day prescribed for heart failure. Metolazone as needed prescribed for weight gain >4 lbs in a day.
Plavix discontinued, no longer necessary at this time. Please follow up with Cardiology or primary care provider before considering to resume.
Please take medications as prescribed/recommended and follow up with primary care provider, machine set up, and/or other healthcare provider involved in your care for refills and/of further adjustment to your medication regimen as necessary.
Instructions: *CBC Heart Failure Instructions
Referrals:
[facility] [Outside] (FAX [phone])
Rajiv Pavon MD [Family Provider] - in one week
Marc Shin MD [Active] - in two to four weeks
Prescriptions:
New
cefdinir 300 mg Capsule
300 mg PO Q12 Qty: 3 0RF
Rx Instructions:
09/30/24 last day for antibiotics
torsemide 40 mg tablet
80 mg PO BID Qty: 120 0RF
prednisone 10 mg Tablet
See Rx Instructions .ROUTE .COMPLEX Qty: 18 0RF
Rx Instructions:
Take By Mouth:
30 mg daily x3 days, 20 mg daily x3 days,
10 mg daily x3 days, then stop
metolazone 2.5 mg tablet
2.5 mg PO Q OTHER DAY PRN (Reason: weight gain >4 lbs) Qty: 14 0RF
Rx Instructions:
weight gain >4 lbs in a day
Continued
atorvastatin 40 MG tablet
40 mg PO QPM
dabigatran etexilate [Pradaxa] 150 MG capsule
150 mg PO BID
tamsulosin 0.4 MG capsule
0.4 mg PO HS
finasteride 5 MG tablet
5 mg PO HS
metoprolol tartrate 25 MG tablet
25 mg PO BID
fluoxetine [Prozac] 40 MG capsule
40 mg PO HS
folic acid 1 mg Tablet
1 mg PO DAILY
hydralazine 25 mg Tablet
25 mg PO TID Qty: 1 0RF
umeclidinium-vilanterol [Anoro Ellipta] 62.5-25 mcg/actuation Blister With Device
1 inh INHALATION R DAILY
cyanocobalamin (vitamin B-12) 1,000 mcg tablet extended release
1,000 mcg PO DAILY
albuterol sulfate 2.5 mg /3 mL (0.083 %) solution for nebulization
2.5 mg inhalation R QIDPRN PRN (Reason: sob)
allopurinol 100 mg tablet
100 mg PO DAILY
potassium chloride 20 mEq tablet,ER particles/crystals
20 meq PO BID
dapagliflozin propanediol [Farxiga] 10 mg tablet
10 mg PO DAILY
albuterol sulfate [Ventolin HFA] 90 mcg/actuation Hfa Aerosol Inhaler
1 puff INHALATION R Q4HPRN PRN (Reason: wheeze/SOB)
mirtazapine 15 mg Tablet
15 mg PO HS Qty: 30 0RF
Discontinued
clopidogrel [Plavix] 75 mg Tablet
75 mg PO DAILY
torsemide 20 mg Tablet
80 mg PO BID@0800,1600 Qty: 60 0RF
Discharge Orders:
Discharge Patient (As Directed); Ordered 09/29/24
Ordered By: Alana Viveros
Care Plan Goals
Care Plan Goals:
Problem: Readiness for enhanced knowledge related to diagnosis and treatment plan
Goal: Understand your diagnosis and treatment plan needs, including medications if applicable.
Instructions: Know your diagnosis, underlying causes and treatment plan options, including medications if applicable. Consult with your health care team to learn about your diagnosis and treatment plan, including medications if applicable.
Discharge Date and Time
Discharge Date/Time: 09/29/24 16:41
Print Language: POLISH
--- NOTE | 2024-09-29 15:29 | PTOTSP ---
Chart reviewed. Spoke to RN. RN noted that patient is going to go home today. Spoke to patient. Patient notes that he has been getting into/out of his home fine. He has a stair glide to the 2nd floor. [place] on . Has a aide 3days a wk for 4
hrs each day for laundry, shopping, and cleaning. He also notes that he has MOW 3 days a week that he pays for. He has 1 RW on each level of the home. Patient was educated on role of PT in the acute care setting. patient does not believe that he
has any skilled PT needs at this time. He also doesn't feel that he needs home PT. Patient encouraged to continue to get up and mobilize to the bathroom while he is here. At this time, there is no skilled needs for PT and will sign off.
== END 2024-09-29 16:41 | disposition home health service (06) | DRG 193 ==
LOC: 4 EAST ACU 02:57
PROVIDERS: Hospitalist; Nurse Practitioner; Student in an Organized Health Care Education/Training Program; ADMITTING PHYSICIAN Internal Medicine; ATTENDING PHYSICIAN Internal Medicine; EMERGENCY PHYSICIAN Emergency Medicine; FAMILY PHYSICIAN Internal Medicine; OTHER PHYSICIAN Internal Medicine Cardiovascular Disease
DX: J18.9 Pneumonia, unspecified organism (principal); I50.33 Acute on chronic diastolic (congestive) heart failure; I48.21 Permanent atrial fibrillation; J44.0 Chronic obstructive pulmonary disease with (acute) lower respiratory infection; Z68.41 Body mass index [BMI] 40.0-44.9, adult; Z87.891 Personal history of nicotine dependence; I25.10 Atherosclerotic heart disease of native coronary artery without angina pectoris; N18.31 Chronic kidney disease, stage 3a; D64.9 Anemia, unspecified; R06.89 Other abnormalities of breathing; R09.02 Hypoxemia; D50.9 Iron deficiency anemia, unspecified; K55.20 Angiodysplasia of colon without hemorrhage; E78.00 Pure hypercholesterolemia, unspecified; M10.9 Gout, unspecified; E66.813 Obesity, class 3; Z66 Do not resuscitate; E87.6 Hypokalemia; Z11.52 Encounter for screening for COVID-19
CPT/HCPCS: 71045; 80048; 80053; 82728; 83540; 83550; 83735; 83880; 84443; 84484; 85014; 85018; 85025; 85027; 87070; 87502; 87811; 93005; 94640; 96374; 99285; J2916

== ENCOUNTER 2025-01-05 21:27 | Inpatient (IN) | payer MEDICARE, SELFPAY ==
[2025-01-05] VITALS (7 sets, daily range): BP systolic 119–159; BP diastolic 39–86; BMI 37.2
[2025-01-05 17:25] LABS: Glucose - Point of Care 119 mg/dl (70-99)
--- NOTE | 2025-01-05 17:39 | ED.GENMED ---
History of Present Illness
General
Chief Complaint: Fall
Source: patient
Time Seen by Provider: 01/05/25 17:26
History of Present Illness
History of Present Illness:
This patient is an 85-year-old male presents emergency department after suffering a fall late Sunday evening/early Sunday morning. He was using his walker to go to the restroom and on his way back towards the bed flipped and fell. Since that
time, he has had pain in his left knee radiating down distally to the superior aspect of his ankle. This is particularly worse when he moves a certain way. He was able to maneuver himself back into bed, but notes severe pain in this area when he
tries to stand, walk, or move. He describes it as a 'shooting' pain. He denies pain in his back, neck, hip. Since this event, he has been essentially isolated to the bed. He has been able to maneuver to the bathroom a few times, otherwise has
been unable to get out of bed in order to feed himself, drink, take his medications, etc. He feels overall fatigued and slightly lightheaded and is very thirsty. He denies nausea, vomiting, head injury, loss of consciousness, neck pain, numbness,
tingling, chest pain, palpitations, abdominal pain, urinary symptoms. Patient was noted to be hypoxic here in ED, denies cough/st/rhinorrhea/sob.
Past History
Past History
ED Past Medical History: Arrthythmia (Paroxysmal atrial fibrillation), CAD, CHF, COPD, CVA, HTN, Hypercholesterolemia and Other (CKD)
ED Past Surgical History: Cardiac and Orthopedic (Resection of a thoracic spine lesion and spinal fusion)
Social History
Tobacco: Former smoker
Alcohol: None
Drug: None
Personal:
Living: alone
Employment: Retired
Family History
Family History: Other (Noncontributory)
Phy Exam
Physical Exam
Physical Exam:
GENERAL: Alert , in no apparent distress, very very pleasant, telling stories to me, in no acute distress
EYE: pupils equal and reactive, no photophobia
NECK: Supple, no significant adenopathy, no tenderness to palpation.
ENT: o/p clr, mm very dry, speech clear, no signs of head or facial injury, no nava, no raccoon.
CARDIAC: Regular rate and rhythm .
LUNGS: Clear breath sounds bilaterally, no acute respiratory distress, no wheezes/rales/rhonchi
ABDOMEN: Soft, without focal tenderness, no r/g, no cvat
NEUROLOGICAL: Alert and oriented, no focal neuro deficits
SKIN: Warm and dry, skin intact.
MUSCULOSKELETAL: bilat 1+ le edema, well perfused. There is ttp noted throughuot L knee and super tib/fib area, no deformity, limtied ROM due to pain. No ttp noted at femur/hip/ankle. No break in skin.
PSYCH: Normal and appropriate interaction.
Course
Orders/Labs/Results
Orders:
Orders
01/05/25 Dinner
Cholesterol Lowering
At Your Request: Full Participation
Does patient need a safe tray?: No
Cholesterol Lowering: Sodium, 2 Gram
01/05/25 17:38
Electrocardiogram (*1) Stat
Reason for Study: Abdominal Pain
Cardiac Monitoring- Treatment ONCE
EKG- Treatment ONCE
0.9% Sodium Chloride 500 ml [Nss] 500 ml IV BOLUS
Knee, Left 4 or More Views [CR Knee - Left 4 Or More View*] Urgent
Comment:
Reason For Exam: injury
Tib/Fib, Left 2 View [CR Leg Tibia/fibula Left 2 Vw] Urgent
Comment:
Reason For Exam: injury
Pulse Ox/cont/shift [RESP] Stat
Quantity: 1
01/05/25 17:39
CPK [Creatine Phosphokinase] Urgent
Complete Blood Count/With Diff Urgent
Comprehensive Metabolic Panel Urgent
Ferritin Urgent
Comment: ADD ON
Folate Urgent
Comment: ADD ON
Iron Urgent
Comment: ADD ON
Magnesium Urgent
Comment: ADD ON
PT/INR [Prothrombin Time] Urgent
PTT Urgent
Total Iron Binding Urgent
Comment: ADD ON
Vitamin B12 Urgent
Comment: ADD ON
01/05/25 17:46
CR Chest - 2 Views Urgent
Comment:
Reason For Exam: hypoxia
01/05/25 17:49
NT-proBNP Urgent
Troponin I Urgent
01/05/25 18:13
* Blood Bank Products Urgent
Blood Bank Products: *Packed RBC Leuko(PRBC's)
Quantity: 1
Transfuse Today: Yes
Reason: Anemia
IV Insert/Care/Rem.- Treatment PRN
01/05/25 18:18
Potassium Chloride [KCl] 40 meq 0.9% Sodium Chloride 250 ml [Nss] 250 ml IV NOW
01/05/25 18:30
Type+Screen Urgent
01/05/25 19:36
Urinalysis Reflex To Culture Urgent
Date Specimen was Collected: 01/05/25
Time Specimen was Collected: 19:16
Urine Microscopic Reflex Cult Urgent
01/05/25 20:23
Add On- LAB Urgent
Tests Added?: magnesium
01/05/25 20:33
Add On- LAB Urgent
Tests Added?: iron ferritin tibc folate b12
01/05/25 20:55
Oxycodone/Acetaminophen [Percocet 5/325] 1 tablet PO NOW STA
Potassium Chloride [KCl] 20 meq PO NOW STA
01/05/25 20:58
Stool for occult blood [Hemetest Stools] As Directed
01/05/25 21:12
Splint [Braces/Immobilizers] As Directed
Type of Brace/Immobilizer: Splint
Other brace/immobilizer: posterior long ocl splint
Location for Brace/Immobilizer: left leg ankle
01/05/25 21:13
Admit/Transfer Patient As Directed
Co-Sign Provider:
Level of Care: Inpatient admission
Assign to:: IMU- Intermediate Care
Physician / Group: stevie bennett
Diagnosis: symp anemia, mechan fall, hypoK, lonnie, L ankle/knee sprain, volume deple
Reason for Hospitalization: symp anemia, mechan fall, hypoK, lonnie, L ankle/knee sprain, volume deple
Expected length of stay greater than two midnights?: Yes
ELOS- Estimated Length of Stay in days: 4
I certify the patient meets the requirements for IP care: Yes
Code Status As Directed
Resuscitation Status: Do not resuscitate
Reached after discussion with pt or family/Healthcare POA: Yes
Based on pt advanced directive or healthcare POA form: Yes
Decision communicated with: per pt
DNR Bracelet Application ONCE
01/05/25 21:18
PRN Pain Medication Management As Directed
May give lesser potent ordered pain med per pt: Yes
preference::
Protocol:: Medication orders for pain may be administered in a
manner that supports deferring to patient preference
when the pt is:
- Requesting an ordered lesser potent pain medication.
Least to most potent pain medications are defined
as: acetaminophen < NSAID < tramadol < opioids
(morphine, oxycodone, hydromorphone).
- Requesting a lesser dose of the same medication IF
ORDERED.
- Requesting a less intrusive route of administration
if both routes are prescribed by the provider (PO <
IV).
01/05/25 21:25
ORTHOPEDIC CONSULT Routine
Consulting Provider: Kerwin Betancourt
Was physician already notified: Yes
Reason for consult: fall L lateral mallelous pain/ left fibular pain/ strain amb dys
01/05/25 21:42
Acetaminophen [Tylenol] 650 mg PO Q4HPRN PRN
Albuterol Nebs [Ventolin Nebules] 2.5 mg INH R QIDPRN PRN sob
Albuterol [ProAIR HFA INHALER] 1 puff INH R Q4HPRN PRN wheeze/SOB
Ondansetron Injectable [Zofran] 4 mg IV Q6HPRN PRN
Oxycodone [Roxicodone] 5 mg PO Q4HPRN PRN
01/05/25 21:42
VTE Contraindication Routine
VTE Mechanical Device Contraindication: Medical Contraindication
Pharmocologic Contraindication: Medical Contraindication
Comment: anemia
Activity As Directed
Activity Level: With Assistance
Intake/ Output As Directed
Frequency: Per unit guidelines
Vital Signs As Directed
Frequency: Per unit guidelines
Weight As Directed
Frequency: Daily
Ot Eval And Treat Routine
Pt Eval And Treat Routine
Activity Level: With Assistance
01/05/25 22:00
Mirtazapine [Remeron] 15 mg PO HS
01/06/25 06:00
Complete Blood Count/With Diff IN AM
Comprehensive Metabolic Panel IN AM
01/06/25 08:00
Allopurinol [Zyloprim] 100 mg PO DAILY
Dapagliflozin [Farxiga] 10 mg PO DAILY
FOLic ACID [Folvite] 1 mg PO DAILY
Finasteride [Proscar] 5 mg PO DAILY
HydrALAZINE [Apresoline] 25 mg PO TID@0800,1200,1600
Metoprolol [Lopressor] 25 mg PO BID
cyanocobalamin (vitamin B-12) 1,000 mcg PO DAILY
umeclidinium-vilanterol [Anoro Ellipta] 1 inh INH R DAILY
01/06/25 18:00
Atorvastatin [Lipitor] 40 mg PO QPM
Tamsulosin [Flomax] 0.4 mg PO QPM
fluoxetine 40 mg PO QPM
01/07/25 06:00
Complete Blood Count/With Diff IN AM
Comprehensive Metabolic Panel IN AM
01/08/25 06:00
Complete Blood Count/With Diff IN AM
Comprehensive Metabolic Panel IN AM
01/09/25 06:00
Complete Blood Count/With Diff IN AM
Comprehensive Metabolic Panel IN AM
Abnormal Lab Results
01/05/25 01/05/25 01/05/25
17:23 17:39 18:30
WBC 11.3 H 10^3/uL
(4.8-10.8)
RBC 2.77 L 10^6/uL
(4.70-6.10)
Hgb 6.8 L* g/dL
(13.0-18.0)
Hct 22.2 L %
(39.0-52.0)
MCH 24.5 L pg
(27.0-31.0)
MCHC 30.6 L g/dL
(33.0-37.0)
RDW 20.1 H %
(11.5-14.5)
Abs Immat Gran (auto) 0.1 H 10^3/uL
(0-0.05)
Absolute Neuts (auto) 9.6 H 10^3/uL
(1.4-6.5)
Absolute Lymphs (auto) 0.6 L 10^3/uL
(1.2-3.4)
Absolute Monos (auto) 1.0 H 10^3/uL
(0.1-0.6)
Immature Gran % 0.6 H %
(0-0.5)
Neutrophils % 84.4 H %
(42.2-75.2)
Lymphocytes % 5.6 L %
(20.5-51.1)
PT 24.5 H Sec
(11.4-14.6)
APTT 74.9 H Sec
(23.4-35.0)
Potassium 2.6 L* mmol/L
(3.5-5.1)
Chloride 94 L mmol/L
(98-107)
Carbon Dioxide 32 H mmol/L
(22-30)
BUN 67 H mg/dl
(9-20)
Creatinine 2.0 H mg/dL
(0.7-1.3)
Glucose 100 H mg/dl
(70-99)
Calcium 7.1 L mg/dl
(8.4-10.2)
Iron 31 L ug/dl
(49-181)
% Saturation 8 L %
(20-50)
Ferritin 9.0 L ng/ml
(17.9-464.0)
Urine Bacteria (Reflex)
Urine Albumin (Reflex)
POC Glucose 119 H mg/dl
(70-99)
Crossmatch IS Only See Detail
01/05/25
19:36
WBC
RBC
Hgb
Hct
MCH
MCHC
RDW
Abs Immat Gran (auto)
Absolute Neuts (auto)
Absolute Lymphs (auto)
Absolute Monos (auto)
Immature Gran %
Neutrophils %
Lymphocytes %
PT
APTT
Potassium
Chloride
Carbon Dioxide
BUN
Creatinine
Glucose
Calcium
Iron
% Saturation
Ferritin
Urine Bacteria (Reflex) Few A
(Negative)
Urine Albumin (Reflex) 1+ A
(Neg - Trace)
POC Glucose
Crossmatch IS Only
01/05/25 17:39
01/05/25 17:39
Vital Signs
Initial and Last Documented VS:
Initial Vital Signs
BP
124/74
01/05/25 17:01
Last Documented Vital Signs
Temp Pulse Resp BP Pulse Ox
98.2 F 72 18 159/68 99
01/05/25 21:07 01/05/25 21:30 01/05/25 21:30 01/05/25 21:07 01/05/25 21:30
*Pulse Oximetry
SaO2: 88
Nasal Cannula flow liters per minute: 2
Oxygen Mode of Delivery: Room air
Patient hypoxic: yes
*Critical Care Note
Total Time (30-74mins, 75-104mins- exclusive of procedures): 31
Update Note
Update Note:
Patient presents to the Emergency Department with left knee pain after fall with poor p.o. intake
Number and Complexity of Problems Addressed at the Encounter
� Chronic conditions affecting care:
� Acute Exacerbation and/or Progression of Chronic Illness:
� Differential Diagnosis includes: But not limited to dehydration, rhabdomyolysis, knee fracture, pneumonia, etc. etc.
Amount and/or Complexity of Data to be Reviewed and Analyzed
� I performed an independent evaluation of and my interpretation is:
EKG: Read by me, atrial flutter, normal rate, LAD, no acute ischemia noted
CT:
Xrays: Read by me knee tib fib no specific fracture noted. Chest x-ray
Laboratory Studies: Worsening anemia at 6.8., New hypokalemia, prerenal azotemia suggesting dehydration given patient's poor p.o. intake. Troponin unremarkable,
Other:
� Review of other/old records reveals:
� Clinical information was obtained by an independent historian:
� Prescriptions/Medications Considered but not given:
� Further testing considered but not performed:
Risk of Complications and/or Morbidity or Mortality of Patient Management
� Social determinants of health affecting care:
� Discussion with other providers (PCP, Hospitalists, Consultants, etc):
� Escalation of care including admission/observation vs risk of discharge considered: PE consideration given patient is hypoxic here and obese however he is fully anticoagulated making this diagnosis far less likely.
Worsening anemia noted, patient is on a DOAC. He denies active bleeding or black stools now but did state that a few weeks ago he had 4 to 5 days of black stool which is fully resolved. Consent signed for recommended transfusion given patient's
symptoms of lightheadedness and noted hypoxia here which may be related to his anemia.
Patient remains awake alert and relatively comfortable. He will be admitted for the various findings here. Awaiting final report for x-ray reads may need a CT to further define extent of injury in the knee tib-fib area. He does not have any pain
in the pelvic hip area and his extremity is not externally rotated making hip injury far less likely. Case discussed with hospitalist for admission.
ED Attending Note
-
Portions of this chart may have been created with voice recognition software.� Occasional wrong word or��sound alike� substitutions may have occurred due to the inherent limitations of voice recognition software.
Discharge Plan
Departure
Patient Disposition: Admit
Date of Disposition: 01/05/25
Time of Disposition: 20:07
Presentation/result/management discussed w/ accepting MD/DO: Hospitalist
Condition: Good
Discharge Problem:
Acute hypokalemia, Anemia, Dehydration
Interventions
Interventions:
*Risk Screen - Suicide Last Done: 01/05/25 17:12
*General Assessment Last Done: 01/05/25 17:12
*Neglect/Abuse Screening Last Done: 01/05/25 17:12
*ED COVID-19 Vaccine History Last Done: 01/05/25 17:12
ED-Musculoskeletal Assessment Last Done: 01/05/25 18:10
ED- Neurological Assessment Last Done: 01/05/25 18:10
ED-Skin Assessment Last Done: 01/05/25 18:10
[2025-01-05 17:59] LABS: INR 2.19; PT 24.5 Sec (11.4-14.6)
[2025-01-05 18:01] LABS: APTT 74.9 Sec (23.4-35.0)
[2025-01-05 18:10] LABS: Hematocrit 22.2 % (39.0-52.0); Hemoglobin 6.8 g/dL (13.0-18.0); Mean Corp Hgb Conc. 30.6 g/dL (33.0-37.0); Mean Corpuscular Volume 80.1 fL (80.0-94.0); Nucleated Red Blood Cells % 0.2 % (-); Platelet Count 311 10^3/uL (130-400); Red Cell Dist. Width 20.1 % (11.5-14.5)
[2025-01-05 18:13] LABS: ALT (SGPT) 12 U/L (0-50); AST (SGOT) 19 U/L (17-59); Albumin 3.7 g/dl (3.5-5.0); Alkaline Phosphatase 74 U/L (38-126); Blood Urea Nitrogen 67 mg/dl (9-20); Calcium 7.1 mg/dl (8.4-10.2); Carbon Dioxide 32 mmol/L (22-30); Chloride 94 mmol/L (98-107); Estimated Creatinine Clearance 35 ml/min; Glucose 100 mg/dl (70-99); Potassium 2.6 mmol/L (3.5-5.1); Sodium 137 mmol/L (135-145); Total Protein 6.4 g/dl (6.3-8.2); eGFR 32.10
[2025-01-05 18:22] LABS: Troponin I 0.014 ng/ml
[2025-01-05] MEDS: KCL 270 MEQ IV (18:36)
[2025-01-05] MEDS: NSS 500 IV (18:37)
[2025-01-05 19:47] LABS: Urine Character Clear (Clear)
[2025-01-05 20:23] LABS: Urine Squamous Cell 16-20 /LPF (Few)
[2025-01-05 20:24] LABS: Urine Red Blood Cell 0-2 /HPF (0-2)
--- NOTE | 2025-01-05 20:32 | W.PN.UPDATE ---
Update Note
Progress Note Update
This note serves as an addendum to the H&P by metal tank builder Archana Jackson
�
HPI�
85M with class II Obesity, chr HFpEF, Chronic Lymphedema, Perm AF, Chr Pradaxa, HX MARIXA, COPD Gout, CAD stent HTN HLD HFpEF, chr ambulatory dysfunction, use walker seen at ER:
- HX suggestive of mechanical fall late Sunday evening/early Sunday morning
- since then , report L knee pain radiating down distally to the superior aspect of his ankle worse when he moves
- was able to maneuver himself back into bed, but notes severe pain in this area when he tries to stand, walk, or move.
- denies pain in his back, neck, hip.
- since this event, he has been essentially isolated to the bed
- has been able to maneuver to the bathroom a few times,
- otherwise has been unable to get out of bed in order to feed himself, drink, take his medications, etc.
- overall fatigued and slightly lightheaded and is very thirsty.
- patient was noted to be hypoxic here in ED, denies cough/st/rhinorrhea/sob.
ROS
denies nausea, vomiting, head injury, loss of consciousness, neck pain, numbness, tingling, chest pain, palpitations, abdominal pain, urinary symptoms.
Wt.
09/28/24
09/29/24
01/05/25
Actual Weight 124.539 kg 124.369 kg 117.6 kg
Relevant VS
Temp Pulse Resp BP Pulse Ox
98.2 F 73 16 159/68 96
01/05/25 21:07 01/05/25 21:01/05/25 21:01/05/25 21:07 01/05/25 21:00
PE
Pleasant
Gen: NAD
HEENT:
Neck: Non tender cx spine
Lungs: CTA
Cor: RRR S1 S2
Abdomen:�Soft, without focal tenderness
PULLEY MAN: AAO3
MS:
B/L 1+ le edema, well perfused
TTP noted throughout L knee and super tib/fib area
No deformity
limited ROM due to pain.
No TTP noted at femur/hip/ankle. No break in skin.
Psych: Normal and appropriate interaction.
Relevant Data
09/28/24 01/05/25
WBC 11.3 H
Hgb 8.2 L 6.8 L*
MCV 80.1
Plt Count 311
09/29/24 01/05/25
Potassium 3.6
Carbon Dioxide 37 H 32 H
Creatinine 1.5 H 2.0 H
eGFR 45.62 32.10
09/23/24 01/05/25
Troponin I 0.014
[id number] Pept [id number]
EKG
ATRIAL FLUTTER WITH VARIABLE A-V BLOCK
INCOMPLETE LEFT BUNDLE BLOCK
NONSPECIFIC ST AND T WAVE ABNORMALITY
ABNORMAL ECG
WHEN COMPARED WITH ECG OF 25-Sep-2024 06:16,
ATRIAL FLUTTER HAS REPLACED ATRIAL FIBRILLATION
INCOMPLETE LEFT BUNDLE BLOCK IS NOW PRESENT
QT HAS SHORTENED
CXR:
- Minimal mid left lung atelectasis versus scarring.
- Moderate cardiomegaly. Stable.
- Moderate elevation of the right hemidiaphragm. Stabl
02/04/25 L [place] Tib - Fib XR
- Moderate soft tissue swelling about the medial malleolus
- No evidence of acute fracture of the imaged osseous structures.
- Mild tibiotalar osteoarthritis.
06/19/24 TTE
- LVEF 60-65%.
- Normal regional wall motion.
- Enlarged right ventricular size. Normal right ventricular systolic function.
- Likely mild aortic stenosis; peak/mean gradients 13/8 mmHg, calculated BRIONNA 1.8 cm2.
- Mild tricuspid regurgitation.
- Estimated pulmonary artery pressure of 60-65 mmHg, assuming a right atrial pressure of 8 mmHg.
- Compared to previous echo on 12/11/2023, mild aortic stenosis is now noted and the PASP has increased (previously 30 mmHg).
06/20/23 cardiac cath:
- Codominant circulation
- long, 30% mid LAD lesion culminating in an occlusive 70% lesion (IFR = 0.65)
- s/p post successful PCI of the entire lesion with JANETTE stent
- overlapping Xience Skypoint 3.0 x 28 JANETTE, 3.25 x 8 JANETTE, postdilated with a 3.0 NC balloon with reduction in all stenoses to 0%, maintaining TOMY-3 flow.
Last hospitalist admission: Date of Admission: 09/24/24 - Date of Discharge: 09/29/24
DC Dx: Acute hypoxic respiratory insufficiency , Acute on Chronic HFpEF
ASSESSMENT & PLAN
Fall complicated by L proximal fibula and Lt lateral malleolar pain ? Sprained ankle with deep tissue injury
Acute on chr gait dysfunction
- No XR evidence of Tib/Fib XR to r/o Fx
- PRN PO and IV narcotic Analgesia
- Immobilization with post OCL
- Ortho consulted
Acute anemia - DDX - ACBLA
Anemia of chronic dz - baseline Hgb low 8s
- GI work up in 06/2024 with angiodysplastic lesion --nonbleeding on colol
- T & S and Blood consent
- agree with 1 PRBCs - f/u post PRBC Hgb
- Hold Pradaxa for now
- check HoB stool
- check Ferritin
- GI consult
Hypokalemic - s/p IV KCL Darci 40 + PO 20 at ER
ZA with Cr 2 due to dehydration - bed ridden for last few daysd and decresed PO intake
HX CKD 3a/b - baseline : Cr mid 1s, eGFR low 30s
- Hold Torsemide
- Trend Cr and K in AM
HX Chronic HFpEF:
Loss 6.9 kg/ 15.2 lbs ( 09/05/24 124.539 kg --> 02/04/25 117.6 kg )
- Hold home Torsemide for now and observe Cr
- on GDMT--> metoprolol tartrate 25 mg BID, Farxiga 10 mg daily
- On CLINICAL RESEARCH SPECIALIST hydralazine 25 mg tid
- Daily Wt and IOs
Bradycardia HX
HX Permanent AF with slow ventricular response.
HX NSVT
- on Metoprolol tartrate 25 mg BID - hold if HR less tahn 55
- Hold CLINICAL RESEARCH SPECIALIST Pradaxa due to severe anemia
CAD HX
06/20/23 cardiac cath: long, 30% mid LAD lesion culminating in an occlusive 70% lesion
- S/p post successful PCI of the entire lesion with JANETTE stent --> reduction in all stenoses to 0%, maintaining TOMY-3 flow.
- Severely elevated filling pressures (LVEDP = 24 mmHg, PCWP = 25 mmHg at 134.3 kg).
- Moderate PHT
- continue statin, BB
Known Conditions CLINICAL RESEARCH SPECIALIST
Gout:
HTN:
Mild aortic stenosis
Chr b/l Forest Lymphedema ACEI wraps
DVT Px: Pradaxa
DNR
IMU
--- NOTE | 2025-01-05 20:33 | HPS.HSE ---
Family Physician
-
Family Physician: Rajiv Pavon
Chief Complaint
-
fall , bed bound 3 days unabl e to eat drink take meds, ankle knee pain left
History of Present Illness
85-year-old male from home where he lives alone but receives [facility] help 3 days a week Sunday 6 hours a day. He states that on early Sunday morning he got up to go to the bathroom using his walker while walking back from the bathroom
he let go of the walker to turn to get into bed and fell onto his left knee and ankle. He reports he was able to get himself back up into bed but by Sunday morning he had increased swelling in the lateral malleolus of the ankle along with pain in
the ankle and the lateral proximal fibula. He reports he was unable to bear weight he was able to void at bedside but was unable to get food, drinks, medication. Patient denies head injury, fever, chills, chest pain, palpitations, cough, shortness
of breath, abdominal pain, nausea, vomiting, diarrhea, urinary symptoms.
He has past medical history morbid obesity, CAD status post stent 06/26/2024, HTN, HLD, heart failure preserved EF, chronic lymphedema, permanent A-fib on Pradaxa, CKD 3B, chronic iron deficiency anemia, history of colonic angiodysplastic lesions
nonbleeding, BPH MARIXA, COPD, gout
Medical History
Past Medical History
Past Medical History: Reports Other (Past Medical History: Hypertension Chronic HFpEF COPD Permanent Atrial Fibrillation Lumbar DDD ASCVD Gout Morbid Obesity)
Additional Past Medical History:
morbid obesity
CAD status post stent 06/26/2024
HTN
HLD
heart failure preserved EF
chronic lymphedema
Permanent A-fib on Pradaxa
CKD 3B
chronic iron deficiency anemia
history of colonic angiodysplastic lesions nonbleeding
BPH
MARIXA
COPD
gout
Past Surgical History: Reports Other (PTCA with Stent Lumbar laminectomy LINQ Implant)
Social History
Tobacco: Former Smoker
Alcohol: None
Drug: None
Personal: Single
Living: Alone
Employment: Retired
Family History
Family History: Not pertinent
Allergies / Home Medications
Allergies reflects when Allergies were last updated in [employer].
Home Medications with original date entered in [employer]
Allergy/Medication List:
Allergies
Allergy/AdvReac Type Severity Reaction Status Date / Time
No Known Allergies Allergy Verified 01/05/25 17:12
Home Medications
atorvastatin 40 mg tablet 40 mg PO QPM High cholesterol 01/19/20
dabigatran etexilate 150 mg capsule (Pradaxa) 150 mg PO BID Blood clot prevention/tx 01/19/20
finasteride 5 mg tablet 5 mg PO DAILY Urinary issue 04/07/20
metoprolol tartrate 25 mg tablet 25 mg PO BID Blood pressure 04/07/20
tamsulosin 0.4 mg capsule 0.4 mg PO QPM Urinary issue 04/07/20
folic acid 1 mg tablet 1 mg PO DAILY Supplement 06/19/23
umeclidinium 62.5 mcg-vilanterol 25 mcg/actuation powdr for inhalation (Anoro Ellipta) 1 inh inhalation R DAILY Lung/Breathing Issues 12/10/23
albuterol sulfate 2.5 mg/3 mL (0.083 %) solution for nebulization 2.5 mg inhalation R QIDPRN PRN sob 06/19/24
albuterol sulfate 90 mcg/actuation aerosol inhaler (Ventolin HFA) 1 puff inhalation R Q4HPRN PRN wheeze/SOB 06/19/24
allopurinol 100 mg tablet 100 mg PO DAILY gout prophylaxis 06/19/24
cyanocobalamin (vitamin B-12) 1,000 mcg tablet,extended release 1,000 mcg PO DAILY Supplement 06/19/24
dapagliflozin propanediol 10 mg tablet (Farxiga) 10 mg PO DAILY Heart Failure 06/19/24
potassium chloride 20 mEq tablet,extended release(part/cryst) 20 meq PO BID Electrolyte Repletion 06/19/24
mirtazapine 15 mg tablet 15 mg PO HS #30 tabs 09/19/24
fluoxetine 40 mg capsule 40 mg PO QPM 01/05/25
hydralazine 25 mg tablet 25 mg PO TID@0800,1200,1600 01/05/25
torsemide 20 mg tablet 80 mg PO BID 01/05/25
Review of Systems
-
History Source: Patient
A 12 point ROS was completed and negative except as noted: Yes
Constitutional: Reports Weight Loss (6.9 kg in the past 3 months patient states he gets Meals on Wheels 3 days a week); Denies Chills
EENT: Denies Sore Throat or Runny Nose
Respiratory: Denies Cough or Trouble Breathing
Cardiac: Denies Chest Pain, Diaphoresis, Palpitations or Syncope
Abdomen/GI: Denies Abdominal Pain, Nausea, Vomiting, Diarrhea, Constipated or Bloody Stools
: Denies Dysuria, Frequency, Flank Pain, Incontinence, Difficulty Voiding or Urgency
Musculoskeletal: Reports Joint Pain (Left lateral malleolus, left proximal fibula), Edema (Chronic bilateral leg lymphedema) and Other (No joint effusion in knee)
Skin: Denies Itching or Rash
Neurological: Denies Dizzy or Headache
Endocrine: Reports No Symptoms
Hematologic/Lymphatic: Reports No Symptoms
Psych: Reports Calm
Physical Exam
Vital Signs
Vital Signs
Temp Pulse Resp BP Pulse Ox
98.5 F 81 25 142/86 97
01/05/25 17:10 01/05/25 20:15 01/05/25 20:00 01/05/25 18:00 01/05/25 20:00
Physical Exam
General: Conversant, Pain and Morbidly Obese; No Fever or Chills
HEENT: NormoCephalic, Anicteric, Atraumatic, PERRLA, [place] Conjunctivae, No Ptosis and Other (Dry oral mucosa)
Respiratory: Clear; No Wheezes or Rales
Cardiac: S1/S2, Irregular Rhythm (A flutter), Murmur (2/6 systolic) and Peripheral Edema (Chronic bilateral leg lymphedema); No Rub or Gallop
Breast: Deferred by me
GI: Soft, Non Tender, Non Distended, Normal Bowel Sounds and No Hepatosplenomegaly
Rectal: Deferred by Provider
Genito-urinary: Deferred by me
Musculoskeletal: No Clubbing, No Cyanosis, Edema, Left Lower Extremity (Chronic leg lymphedema), Edema, Right Lower Extremity (Chronic leg lymphedema) and Other (Left lateral malleolus, left proximal fibula); No Edema, Left Upper Extremity or Edema,
Right Upper Extremity
Skin: Warm and Dry; No Rash or Jaundice
Neuro: AO x 3, Cranial Nerves Intact and No Sensory Deficits; No Slurred Speech, Facial Droop, Tremors or Sedated
Psych: Calm
Laboratory Results
-
01/05/25 17:39
01/05/25 17:39
Laboratory Results
PT 24.5 Sec (11.4-14.6) H 01/05/25 17:39
INR 2.19 01/05/25 17:39
APTT 74.9 Sec (23.4-35.0) H 01/05/25 17:39
Total Bilirubin 1.0 mg/dl (0.2-1.3) 01/05/25 17:39
AST 19 U/L (17-59) 01/05/25 17:39
ALT 12 U/L (0-50) 01/05/25 17:39
Alkaline Phosphatase 74 U/L (38-126) 01/05/25 17:39
Troponin I 0.014 ng/ml 01/05/25 17:49
Impression/Plan
-
Impression/plan:
Admit to IMU
#Symptomatic anemia with fall
#History of angiodysplastic lesion nonbleeding on colonoscopy June 2024
#History chronic iron deficiency anemia
Hgb 6.8, MCV 80
-Check iron panel, B12, folate
-Type and screen, obtain blood consent
-Transfuse 2 units PRBCs
Follow CBC
- Consult GI
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
Creatinine 2 prior baseline 1.5�1.7 in September 2024
-IV NSS to 50 cc bolus given in ER
--Hold torsemide 80 mg twice daily given ZA
#Acute hypokalemia
K2.6
KCl 20 mEq now, K rider 40 mEq
Follow BMP
-Check magnesium
#Mechanical fall with left lateral malleolus pain, left proximal fibula pain/small suprapatellar joint effusion concern for possible underlying fracture
-Would placed long posterior splint
-Consult Ortho
Consult PT/OT
Tylenol as needed, Percocet as needed pain
#Elevated INR on Pradaxa
INR 2.19 prior 1.7 in October 2021
#Permanent A-fib
#Bradycardia
#History NSVT September 2024
- Metoprolol, hold Pradaxa
#Chronic heart failure preserved EF
#Chronic lymphedema
-Weight loss of 6.9 kg in the last 3 months September 2024 124 kg> 117.6 kg current today
Patient on Farxiga 10 mg daily
-Hold torsemide 80 mg twice daily given ZA
Echo 06/19/2024 EF 60 to 65%, no wall abnormality, enlarged right ventricular size, normal right ventricular systolic function, mild aortic stenosis mild TR, PASP 60-65 mmHg
#Mild aortic stenosis
#Pulm HTN
PASP 60-65 mmHg
#HTN�benign
BP 142/86
-Continue metoprolol tartrate 25 mg twice daily, hydralazine 25 mg 3 times daily
#CAD status post cath 06/20/2023
- Continue statin, beta-keyana
Hold Pradaxa given anemia
Cardiac cath 06/20/2023
Codominant circulation with a long, 30% mid LAD lesion culminating in an occlusive 70% lesion (IFR = 0.65), status post successful PCI of the entire lesion (overlapping Xience Skypoint 3.0 x 28 JANETTE, 3.25 x 8 JANETTE,
postdilated with a 3.0 NC balloon) with reduction in all stenoses to 0%, maintaining TOMY-3 flow. Severely elevated filling pressures (LVEDP = 24 mmHg, PCWP = 25 mmHg at 134.3 kg).
Moderate pulmonary hypertension
#Gout
-Hold allopurinol given ZA
#BPH
- Continue finasteride 5 mg daily, tamsulosin 0.4 mg every afternoon
#Depression
Continue fluoxetine 40 mg every afternoon
#Class II obesity�BMI 37.2
Affects all aspects of care weight loss recommended
DVT prophylaxis
SCDs given severe anemia
DNR
[2025-01-05 21:04] LABS: Iron 31 ug/dl (49-181); Magnesium 2.1 mg/dl (1.6-2.3)
[2025-01-05 21:09] LABS: Total Iron Binding Capacity 369 ug/dl (261-462)
[2025-01-05] MEDS: KCL 20 MEQ PO (21:13)
[2025-01-05] MEDS: PERCOCET 5/325 1 TABLET PO (21:13)
[2025-01-05 21:32] LABS: Ferritin 9.0 ng/ml (17.9-464.0)
[2025-01-05 22:04] LABS: Folate > 20.0 ng/ml (2.76-20); Vitamin B12 885 pg/ml (239-931)
[2025-01-05] MEDS: REMERON 15 MG PO (22:52)
[2025-01-06] VITALS (17 sets, daily range): BP systolic 112–157; BP diastolic 45–101; PULSE 78; BMI 37.7
--- NOTE | 2025-01-06 00:30 | PTCARENOTE ---
Received pt. from ED. Oriented pt. to unit. Pt. awake, alert, and oriented. Denies pain/discomfort. Afebrile. Heart rhythm sinus. Blood pressure normotensive. Lower extremity edema noted. Currently on room air. Lungs sound clear. Abdomen round,
obese. Voiding in urinal. Skin as documented. Vital signs stable at this time.
[2025-01-06] MEDS: TYLENOL 650 MG PO (02:27)
[2025-01-06] MEDS: ROXICODONE 5 MG PO ×5 (02:27→23:57)
[2025-01-06 03:54] LABS: Hematocrit 22.8 % (39.0-52.0); Hemoglobin 6.9 g/dL (13.0-18.0); Mean Corp Hgb Conc. 30.3 g/dL (33.0-37.0); Mean Corpuscular Volume 82.0 fL (80.0-94.0); Nucleated Red Blood Cells % 0.3 % (-); Platelet Count 258 10^3/uL (130-400); Red Cell Dist. Width 19.6 % (11.5-14.5)
[2025-01-06 04:25] LABS: ALT (SGPT) < 10 U/L (0-50); AST (SGOT) 16 U/L (17-59); Albumin 3.3 g/dl (3.5-5.0); Alkaline Phosphatase 71 U/L (38-126); Blood Urea Nitrogen 60 mg/dl (9-20); Calcium 6.6 mg/dl (8.4-10.2); Carbon Dioxide 34 mmol/L (22-30); Chloride 99 mmol/L (98-107); Estimated Creatinine Clearance 41 ml/min; Glucose 108 mg/dl (70-99); Potassium 2.5 mmol/L (3.5-5.1); Sodium 139 mmol/L (135-145); Total Protein 5.8 g/dl (6.3-8.2); eGFR 39.02
--- NOTE | 2025-01-06 04:36 | W.PN.UPDATE ---
Update Note
Progress Note Update
Morning am,
-Hemoglobin 6.9----> one unit of blood ordered,
-Potassium 2.5, and calcium 6.6, corrected calcium 7.2---->calcium and potassium repleted.
[2025-01-06] MEDS: KCL 20 MEQ PO ×2 (04:59→21:09)
[2025-01-06] MEDS: CALCIUM GLUCONATE 100 IV (04:59)
--- NOTE | 2025-01-06 05:00 | PTCARENOTE ---
AM labs drawn. Hemoglobin <7. Contacted house provider, 2nd unit PRBC ordered. Electrolyte repletion also ordered. Vital signs stable at this time.
[2025-01-06] MEDS: KCL 270 MEQ IV (05:18)
--- NOTE | 2025-01-06 06:47 | CON.GI ---
Addendum entered and electronically signed by Justina Dang MD 01/06/25 12:55:
The patient was seen and examined by me independently in collaboration with the nurse practitioner.
Past medical history/social history/medications/allergies/family history reviewed.
Lab data and imaging data reviewed.
85-year-old male past medical history of COPD, CAD with stenting last year, A-fib on Pradaxa, mild , CKD presenting with fall. Orthopedics has evaluated him and recommends CT scan. He was found incidentally to have hemoglobin of 6.8 with iron
deficiency anemia. Of note, he recently underwent an upper endoscopy and colonoscopy in June with Dr. Gilbert for iron deficiency at that time as well. 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 Also incidentally found to have Kat.
Suspect having slow occult GI bleeding from AVMs. Plan for capsule endoscopy as outpatient if no other signs of overt bleeding or drop in hemoglobin during this admission. Continue to trend hemoglobin. May benefit from hematology evaluation
outpatient as well. Agree with below we will add Protonix daily and IV iron. No role to repeat Diflucan unclear if patient took it and currently asymptomatic and EGD was 5 months ago.
Original Note:
Consultation
-
Date/Time Consultation Requested: 01/05/252229
Date/Time Consultation Performed: 01/06/25 0645
Requesting Provider: ALEXSANDRA Hurd
Performing Provider: ALEXSANDRA Prescott, Gloria Dang MD
Reason for Consultation: anemia
Medical History
Chief Complaint / HPI
Chief Complaint: anemia
History of Present Illness:
Pt is a 85yo with hx COPD, CAD with prior stenting in 2023, , CHF, A-fib on Pradaxa, mild , HTN, CKD, chronic lymphedema, gout, BPH, obesity, prior PNA, presents with fall Sunday PM with complaints of left knee to ankle pain with difficulty
ambulating. Pt has been seen by ortho with possible fracture with plan for further imaging. On admission noted with WBC 11,300 with normalization, hbg 6.8 with iron deficient indices, INR 2.19 (with hx Pradaxa use), K 2.6, BUN 67, creat 2, and
normal LFT's. In review of chart pt was admitted in June with iron deficiency anemia at that time. EGD with whitish nummular lesions in esophageal mucosa + ROBBIE, erythema in antrum, 2 cm HH, focal intestinal metaplasia, mild chronic
inflammation-- pt was recommended Diflucan and PPI but unable to reach pt for results and letter sent. colonoscopy with cecal and descending colon angiodysplastic lesions s/p APC, diverticulosis and retained polyp with no bx taken . Pt was
scheduled twice in follow up but appt cancelled and pt admits to some non compliance with follow up.
In review with patient he denies any GI issues. He denies odynophagia, dysphagia, GERD, nausea, vomiting, abdominal pain, diarrhea, constipation, blood or black in stools. No NSAID use. Last Pradaxa was Sunday prior to admission.
Past Medical History
Past Medical History: Arrhythmias (PAF), CAD, CHF, COPD, HTN, Renal Failure (CKD), Valvular Disease (mild ), Psychiatric (depression) and Other (chronic lymphedema, pulm HTN, gout, BPH, obesity, PNA )
Past Surgical History: Cardiac (prior stenting 2023) and Other (stent, lumbar laminectomy, LINQ implant)
Social History
Tobacco: Former Smoker (quit 25 years ago )
Alcohol: Former (quit s)
Drug: Former User (many years ago in teens- 20's)
Living: Alone
Employment: Retired
Family History
Family History: Other (no family hx colon CA or GI issues )
Allergies / Home Medications
Allergy/AdvReac Type Severity Reaction Status Date / Time
No Known Allergies Allergy Verified 01/05/25 17:12
�Medication �Instructions �Recorded
atorvastatin 40 mg tablet 40 mg PO QPM High cholesterol 01/19/20
dabigatran etexilate 150 mg 150 mg PO BID Blood clot 01/19/20
capsule (Pradaxa) prevention/tx
finasteride 5 mg tablet 5 mg PO DAILY Urinary issue 04/07/20
metoprolol tartrate 25 mg tablet 25 mg PO BID Blood pressure 04/07/20
tamsulosin 0.4 mg capsule 0.4 mg PO QPM Urinary issue 04/07/20
folic acid 1 mg tablet 1 mg PO DAILY Supplement 06/19/23
umeclidinium 62.5 mcg-vilanterol 1 inh inhalation R DAILY 12/10/23
25 mcg/actuation powdr for Lung/Breathing Issues
inhalation (Anoro Ellipta)
albuterol sulfate 2.5 mg/3 mL 2.5 mg inhalation R QIDPRN PRN sob 06/19/24
(0.083 %) solution for nebulization
albuterol sulfate 90 mcg/actuation 1 puff inhalation R Q4HPRN PRN 06/19/24
aerosol inhaler (Ventolin HFA) wheeze/SOB
allopurinol 100 mg tablet 100 mg PO DAILY gout prophylaxis 06/19/24
cyanocobalamin (vitamin B-12) 1,000 mcg PO DAILY Supplement 06/19/24
1,000 mcg tablet,extended release
dapagliflozin propanediol 10 mg 10 mg PO DAILY Heart Failure 06/19/24
tablet (Farxiga)
potassium chloride 20 mEq 20 meq PO BID Electrolyte Repletion 06/19/24
tablet,extended release(part/cryst)
mirtazapine 15 mg tablet 15 mg PO HS #30 tabs 09/19/24
fluoxetine 40 mg capsule 40 mg PO QPM 01/05/25
hydralazine 25 mg tablet 25 mg PO TID@0800,1200,1600 01/05/25
torsemide 20 mg tablet 80 mg PO BID 01/05/25
Review of Systems
-
History Source: Patient
Constitutional: Reports No Symptoms
EENT: Reports No Symptoms
Respiratory: Reports No Symptoms
Cardiac: Reports No Symptoms
Abdomen/GI: Reports No Symptoms
: Reports No Symptoms
Musculoskeletal: Reports Other (severe left knee to ankle pain)
Neurological: Reports Weakness
Endocrine: Reports No Symptoms
Hematologic/Lymphatic: Reports No Symptoms
Vital Signs
Temp Pulse Resp BP Pulse Ox
98.7 F 70 18 145/78 94
01/06/25 06:00 01/06/25 06:30 01/06/25 06:30 01/06/25 06:01 01/06/25 06:30
Physical Exam
Exam
General: Other (some distress with left knee pain )
HEENT: Normocephalic and Anicteric
Respiratory: Clear
Cardiac: Regular Rhythm
GI: Soft, Non Tender and Non Distended
Rectal: Other (deferred with severe knee pain and difficulty to turn, heme neg per nursing staff )
Musculoskeletal: No Clubbing and No Cyanosis
Skin: Warm and Dry
Neuro: Awake, Alert and AO x 3
Psych: Calm
Results
WBC 9.4 10^3/uL (4.8-10.8) 01/06/25 03:19
Hgb 6.9 g/dL (13.0-18.0) L* 01/06/25 03:19
Hct 22.8 % (39.0-52.0) L 01/06/25 03:19
MCV 82.0 fL (80.0-94.0) 01/06/25 03:19
Plt Count 258 10^3/uL (130-400) 01/06/25 03:19
Absolute Neuts (auto) 7.1 10^3/uL (1.4-6.5) H 01/06/25 03:19
PT 24.5 Sec (11.4-14.6) H 01/05/25 17:39
INR 2.19 01/05/25 17:39
APTT 74.9 Sec (23.4-35.0) H 01/05/25 17:39
Sodium 139 mmol/L (135-145) 01/06/25 03:19
Potassium 2.5 mmol/L (3.5-5.1) L* 01/06/25 03:19
Chloride 99 mmol/L (98-107) 01/06/25 03:19
Carbon Dioxide 34 mmol/L (22-30) H 01/06/25 03:19
BUN 60 mg/dl (9-20) H 01/06/25 03:19
Creatinine 1.7 mg/dL (0.7-1.3) H 01/06/25 03:19
Calcium 6.6 mg/dl (8.4-10.2) L* 01/06/25 03:19
Total Bilirubin 0.8 mg/dl (0.2-1.3) 01/06/25 03:19
AST 16 U/L (17-59) L 01/06/25 03:19
ALT < 10 U/L (0-50) 01/06/25 03:19
Alkaline Phosphatase 71 U/L (38-126) 01/06/25 03:19
Diagnostic Image Results:
01/05/25 CR Leg Tibia/fibula Left 2 Vw
Moderate soft tissue swelling about the medial malleolus
No evidence of acute fracture of the imaged osseous structures.
Mild tibiotalar osteoarthritis.
Prior GI Procedures:
06/26/24- [facility] Do, EGD- White nummular lesions in esophageal mucosa. Brushings performed - Erythematous mucosa in the antrum. Biopsied - 2 cm hiatal hernia - Normal examined duodenum. Biopsied with stomach with focal intestinal metaplasia,
mild chronic inflammation H pylori neg, ROBBIE +
06/26/24- [facility] Do colonoscopy non bleeding internal hemorrhoids, multiple non bleeding colonic angiodysplastic lesions in cecum s/p APC, single non bleeding angiodysplastic lesion in descending colon s/p APC, diverticulosis, 8 mm polyp in cecum
resection not attempted and no bx completed
Assessment / Plan
-
Pt is a 85yo with hx COPD, CAD with prior stenting in 2023, CHF, A-fib on Pradaxa, mild , HTN, CKD, chronic lymphedema, gout, BPH, obesity, prior PNA, presents with fall Sunday PM with complaints of ankle pain with difficulty ambulating. On
admission noted with WBC 11,300 with normalization, hbg 6.8 with iron deficient indices, INR 2.19 (with hx Pradaxa use), K 2.6, BUN 67, creat 2, and normal LFT's. In review of chart pt was admitted in June with iron deficiency anemia at that
time. EGD with whitish nummular lesions in esophageal mucosa + ROBBIE, erythema in antrum, 2 cm HH, focal intestinal metaplasia, mild chronic inflammation-- pt was recommended Diflucan and PPI but unable to reach pt for results and letter sent.
colonoscopy with cecal and descending colon angiodysplastic lesions s/p APC, diverticulosis and retained polyp with no bx taken . Pt was scheduled twice in follow up but appt cancelled.
-acute on chronic iron deficiency anemia
-knee/ankle pain s/p fall
-hx esophageal candidiasis-- pt unsure if took Diflucan as recommended
-hx colonic AVM's
-afib on Pradaxa
-hypokalemia
other med problems:
-COPD
- CAD with prior stenting in 2023
-CHF
-mild
- HTN
-CKD
-chronic lymphedema
- gout
- BPH
- obesity
-prior PNA
PLAN:
Etiology of AGUSTIN related to prior noted angioectasia, esophagitis vs other also some concurrent CKD which may also be adding to chronic anemia
hbg 6.9 s/p 2 units PRBC's for repeat hbg at 10 AM today then cont to trend
+ stool 01/05 with heme neg testing
will add IV iron with iron deficiency
will add Protonix daily
will review with Dr. Dang as pt unsure of took Diflucan last June
reviewed with patient with recent EGD/colon in June option of repeat Scope vs proceed with capsule next for anemia
currently patient with increased pain in knee and agrees would be difficulty to prep and wishes to focus on knee issue
if hbg remains stable next step would be OP capsule endoscopy vs if signs of aggressive bleeding consider repeat EGD and if needed colonoscopy
t/c OP heme eval with hx AVM's for close monitoring of hbg and iron as needed
cont to replete K per hospitalist team
await ortho follow up for continued knee pain on exam
pt will need OP follow up-- he admits to hx noncompliance with follow up in past
-
-
Thank you for consultation and allowing me to participate in the patient's care. Please call the director environmental GI physician during the after hours with any questions or concerns.
[2025-01-06] MEDS: STRIVERDI RESPIMAT 2 PUFF INH (07:20)
[2025-01-06] MEDS: SPIRIVA RESPIMAT 2.5 MCG 2 PUFF INH (07:21)
--- NOTE | 2025-01-06 08:07 | W.PN.UPDATE ---
Update Note
Progress Note Update
85-year-old male with mechanical fall and pain about the left lateral aspect of the knee radiating to left ankle. Independent review of x-ray shows possible depressed segment for a lateral tibial plateau fracture. Recommend CT scan of the left
knee to include ankle to wear pain is referred to help in determining weightbearing status. Will be recommended likely for nonoperative management.
Nonweightbearing to left lower extremity, pending CT scan. Order placed
[2025-01-06 08:40] LABS: Glucose - Point of Care 123 mg/dl (70-99)
[2025-01-06] MEDS: FOLVITE 1 MG PO (09:11)
[2025-01-06] MEDS: FARXIGA 10 MG PO (09:11)
[2025-01-06] MEDS: LOPRESSOR 25 MG PO ×2 (09:12→19:51)
[2025-01-06] MEDS: ZYLOPRIM 100 MG PO (09:12)
[2025-01-06] MEDS: VITAMIN B-12 1000 MCG PO (09:13)
[2025-01-06] MEDS: APRESOLINE 25 MG PO ×3 (09:13→16:45)
[2025-01-06] MEDS: PROSCAR 5 MG PO (09:20)
--- NOTE | 2025-01-06 09:20 | PTCARENOTE ---
Rec'd pt at 0730 awake alert and oriented resting in bed. Overall states is ok other than the fact that he has still 9/10 L knee pain- states the pain eases then shoots back in his knee. Remedicated at 0918 with Roxicodone 5 mg po after
repositioning pt. Speech is clear. Denies dizziness or headache but did admit when first assessed early this am that he had hallucinated that he saw a dog in his room earlier. Realized it wasn't so and currently is not seeing any animals or
hallucinations of any kind. AVENDAÑO but limited movement of the legs bilaterally moreso the L leg. R leg with +3 edema. L leg with +4 edema. L LE sl pink in the lower leg. Respirs are unlabored on 2L nc although does get winded when laid flat or exerts
himself. BS are sl decreased at the bases otherwise clear. O2 on at 2l nc with sats of 95%. Monitor AFib appearing. Denies chest pain. + pulses. DP pulses with the doppler. VS as documented. Abd is obese with + BS. Pt states he hasn't eaten in a few
days and is hungry. Denies nausea. Breakfast ordered. Voiding yellow urine in the urinal. #2 unit PRBC's finished infusing at 0800 via R ac IV site. KCL rider infusing via L hand IV site. Pt repositioned. Skin care given. Plan of care reviewed with
pt- call corrigan in reach.
--- NOTE | 2025-01-06 10:15 | PTCARENOTE ---
KAY izaguirre completed.
--- NOTE | 2025-01-06 10:40 | PTCARENOTE ---
HH sent as ordered. Pt taken via bed for CT of the L leg. Pt still c/o L leg discomfort. States earlier Oxycodone really did not help all that much. At times when he doesn't move he said its tolerable but then will get a wave of intense pain.
[2025-01-06 11:13] LABS: Hematocrit 26.7 % (39.0-52.0); Hemoglobin 8.3 g/dL (13.0-18.0)
--- NOTE | 2025-01-06 11:20 | PTCARENOTE ---
Returned from CT scan. Tolerated test. Complete CHG bath given. Repositioned. Tried pt on RA and mostly sats have been around 88-92%- was running about 86% returning from CT scan so O2 placed back on at 2l with sats up to 95%. Does get winded with
some audible wheezing with turning and lying flat.
--- NOTE | 2025-01-06 12:52 | CM ---
Initial assessment completed with patient who lives alone in a 2 story home plus basement with B/B on 2nd and 1/2 bath on 1st, 2 steps to enter. 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 He no longer drives. He has a RW, stair
glide and nebulizer. He has a CLINICAL INVESTIGATOR through [facility] for 3 days a week, 4-5 hours a day. She assists with legal practice manager and meals. He does have a HC-POA. No psychiatric hospitalizations. Was in the [employer] and does have [employer] benefits. PCP is Dr. Rajiv Adam
[place]. Pharmacy is [facility]. Discharge POC: TBD.
[2025-01-06] MEDS: PROTONIX 40 MG PO (12:53)
--- NOTE | 2025-01-06 13:00 | PTCARENOTE ---
Dozing at intervals. Assessment is otherwise unchanged. Vs as documented.
--- NOTE | 2025-01-06 14:15 | W.PN.HOSP.TC ---
Today's Communication/Plan
-
f/u K level
hold diuretics
CT LLE normal
hold diuretics
Assessment / Plan
Assessment / Plan
Tibia/fibula xr
Moderate soft tissue swelling about the medial malleolus
No evidence of acute fracture of the imaged osseous structures.
Mild tibiotalar osteoarthritis.
CT LLE
No findings to suggest recent cortical fracture.
Degenerative changes.
Small suprapatellar effusion.

#Symptomatic anemia with fall
#History of angiodysplastic lesion nonbleeding on colonoscopy June 2024
#History chronic iron deficiency anemia
- 2 units of PRBC ordered for hemoglobin of 6.8. follow-up hemoglobin of 8.3 post transfusion.
- Ferritin of 9, iron saturation of 8%, SI 31
- GI evaluated recommended for capsule endoscopy. Recent EGD/colonoscopy in June was nonrevealing except colonic AVM
- Hold Pradaxa
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
- prior baseline 1.5�1.7 in September 2024
- Hold torsemide 80 mg twice daily given ZA and hypokalemia
- Cr down to 1.7 today
#Acute hypokalemia
- Potassium 2 point 5 in the morning, replaced
- Recheck potassium in the afternoon
- Mag WNL
#Mechanical fall
Left proximal fibula pain/small suprapatellar joint effusion
- Concern for possible fracture left knee, ruled out with CT of left leg
- Ortho help appreciated
- Pain control and PT OT after Ortho clearance
#Elevated INR on Pradaxa
- monitor
#Permanent A-fib
#Bradycardia
#History NSVT September 2024
- Metoprolol, hold Pradaxa
#Chronic heart failure preserved EF
#Chronic lymphedema
- Echo 06/19/2024 EF 60 to 65%, no wall abnormality, enlarged right ventricular size, normal right ventricular systolic function, mild aortic stenosis mild TR, PASP 60-65 mmHg
- weight lower then normal dry weight
- Hold torsemide 80 mg twice daily given ZA
#Mild aortic stenosis
#Pulm HTN
#Essential HTN
#CAD status post cath 06/20/2023
#Gout
#BPH
#Depression
#Class II obesity�BMI 37.2
DVT prophylaxis- SCDs given severe anemia
DNR
Total time spent : 53 mins
Anticipated Discharge: > 48 hours
Subjective/Interval History
-
Date of Service: January 06, 2025
No reported black stool/blood in stool
having left knee pain
afebrile
Objective Data
-
Labs:
Laboratory Results
01/06/25 01/06/25 01/06/25
03:19 10:38 14:00
WBC 9.4
Hgb 6.9 L* 8.3 L D
Hct 22.8 L 26.7 L
Plt Count 258
Sodium 139 Pending
Potassium 2.5 L* Pending
Chloride 99 Pending
Carbon Dioxide 34 H Pending
BUN 60 H Pending
Creatinine 1.7 H Pending
Glucose 108 H Pending
Calcium 6.6 L* Pending
Total Bilirubin 0.8
AST 16 L
ALT < 10
Alkaline Phosphatase 71
Vital Signs:
Vital Signs
Temp Pulse Resp BP Pulse Ox
98.9 F 78 22 157/69 93
01/06/25 11:30 01/06/25 12:53 01/06/25 12:00 01/06/25 12:53 01/06/25 12:00
I&O
01/05/25 01/06/25 01/07/25
06:59 06:59 06:59
Intake Total 970 / 1037.5 1220.0 / 1220.0
Output Total 950 / 950 695 / 695
Balance 20 / 87.5 525.0 / 525.0
Review of Systems
-
Respiratory: Reports No Symptoms
Cardiac: Reports No Symptoms
Abdomen/GI: Reports No Symptoms
Physical Exam
-
General: No Apparent Distress and Comfortable
HEENT: Negative Oxygen
Respiratory: Clear to Auscultation
Cardiac: Regular Rhythm and S1/S2; Negative Murmur or Rub
GI: Soft, Nontender, Nondistended and Normal Bowel Sounds
Musculoskeletal: Edema, Right Lower Extrem and Edema, Left Lower Extrem
Neuro: Awake, Alert, Oriented, No Motor Deficits and Nonfocal/Grossly Intact
Psych: Calm
--- NOTE | 2025-01-06 14:35 | PTCARENOTE ---
Remedicated with Roxicodone 5 mg po for 9/10 L knee pain. PT/OT in to see pt and sat pt on the side of the bed for several minutes. No other changes in assessment. Call corrigan in reach.
[2025-01-06] MEDS: FLUSH (NSS) 2 FLUSH IV (14:52)
[2025-01-06] MEDS: FERRLECIT 110 MG IV (14:52)
[2025-01-06 15:11] LABS: Blood Urea Nitrogen 47 mg/dl (9-20); Calcium 7.3 mg/dl (8.4-10.2); Carbon Dioxide 33 mmol/L (22-30); Chloride 97 mmol/L (98-107); Estimated Creatinine Clearance 41 ml/min; Glucose 156 mg/dl (70-99); Potassium 3.0 mmol/L (3.5-5.1); Sodium 137 mmol/L (135-145); eGFR 39.02
[2025-01-06] MEDS: KCL 40 MEQ PO (16:45)
--- NOTE | 2025-01-06 17:15 | PTCARENOTE ---
Assessment is unchanged. Dozed at intervals this afternoon. L knee is still sore but per pt tolerable. Does try to help with repositioning. Remains on 2L. Tends to void frequently about 100 ml/hr which is what he says he does at home. VS as
documented. Watched some teaching videos. Call corrigan in reach.
[2025-01-06] MEDS: FLUSH (NSS) 1 FLUSH IV (17:51)
[2025-01-06] MEDS: LIPITOR 40 MG PO (17:55)
[2025-01-06] MEDS: FLOMAX 0.4 MG PO (17:55)
[2025-01-06] MEDS: PROZAC 40 MG PO (17:55)
--- NOTE | 2025-01-06 18:00 | PTCARENOTE ---
Remains resting- No changes in assessment. He tends to want to always lay on his L side as he said he is most comfortable that way since his back surgery years ago. Call shekhar in reach.
[2025-01-06] MEDS: REMERON 15 MG PO (21:09)
--- NOTE | 2025-01-06 21:58 | CON.ORTHO ---
Consultation
-
Date/Time Consultation Requested: 01/05/20252124
Date/Time Consultation Performed: 01/06/2025 0745
Requesting Provider: ALEXSANDRA Jackson
Performing Provider: PATRICIA Pablo, Dr. Kerwin Betancourt
Reason for Consultation: Left knee pain
Consultation - Orthopedics
History
85M admitted at [facility] after sustaining a mechanical type fall and impacting his left lower extremity. He denies any significant prodromal pain or symptomatic arthritis of the knee or ankle historically. He reports after the fall he has had
difficulty with any weight bearing which promted EMS/admission. Typically ambulates hort distances with a walker.
Allergies / Home Medications
Allergy/AdvReac Type Severity Reaction Status Date / Time
No Known Allergies Allergy Verified 01/05/25 17:12
�Medication �Instructions �Recorded
atorvastatin 40 mg tablet 40 mg PO QPM High cholesterol 01/19/20
dabigatran etexilate 150 mg 150 mg PO BID Blood clot 01/19/20
capsule (Pradaxa) prevention/tx
finasteride 5 mg tablet 5 mg PO DAILY Urinary issue 04/07/20
metoprolol tartrate 25 mg tablet 25 mg PO BID Blood pressure 04/07/20
tamsulosin 0.4 mg capsule 0.4 mg PO QPM Urinary issue 04/07/20
folic acid 1 mg tablet 1 mg PO DAILY Supplement 06/19/23
umeclidinium 62.5 mcg-vilanterol 1 inh inhalation R DAILY 12/10/23
25 mcg/actuation powdr for Lung/Breathing Issues
inhalation (Anoro Ellipta)
albuterol sulfate 2.5 mg/3 mL 2.5 mg inhalation R QIDPRN PRN sob 06/19/24
(0.083 %) solution for nebulization
albuterol sulfate 90 mcg/actuation 1 puff inhalation R Q4HPRN PRN 06/19/24
aerosol inhaler (Ventolin HFA) wheeze/SOB
allopurinol 100 mg tablet 100 mg PO DAILY gout prophylaxis 06/19/24
cyanocobalamin (vitamin B-12) 1,000 mcg PO DAILY Supplement 06/19/24
1,000 mcg tablet,extended release
dapagliflozin propanediol 10 mg 10 mg PO DAILY Heart Failure 06/19/24
tablet (Farxiga)
potassium chloride 20 mEq 20 meq PO BID Electrolyte Repletion 06/19/24
tablet,extended release(part/cryst)
mirtazapine 15 mg tablet 15 mg PO HS #30 tabs 09/19/24
fluoxetine 40 mg capsule 40 mg PO QPM Mental Health/Anxiety 01/05/25
hydralazine 25 mg tablet 25 mg PO TID@0800,1200,1600 Blood 01/05/25
Pressure
torsemide 20 mg tablet 80 mg PO BID Fluid 01/05/25
Retention/Swelling
Past Medical History
Past Medical History: Reports Other (Past Medical History: Hypertension Chronic HFpEF COPD Permanent Atrial Fibrillation Lumbar DDD ASCVD Gout Morbid Obesity)
Additional Past Medical History:
morbid obesity
CAD status post stent 06/26/2024
HTN
HLD
heart failure preserved EF
chronic lymphedema
Permanent A-fib on Pradaxa
CKD 3B
chronic iron deficiency anemia
history of colonic angiodysplastic lesions nonbleeding
BPH
MARIXA
COPD
gout
Past Surgical History: Reports Other (PTCA with Stent Lumbar laminectomy LINQ Implant)
Social History
Tobacco: Former Smoker
Alcohol: None
Drug: None
Personal: Single
Living: Alone
Employment: Retired
Family History
Family History: Not pertinent
Vital Signs / Lab Results
Temp Pulse Resp BP Pulse Ox
98.4 F 69 25 143/67 94
01/06/25 19:37 01/06/25 21:30 01/06/25 21:30 01/06/25 20:00 01/06/25 21:44
01/06/25 10:38
01/06/25 14:28
IMAGING: Xrays os the left knee and left tib/fib show mild to moderate arthrosis of the left knee medial compartment. Possible subtle depression fracture of the lateral tibial plateau vs projectional. No other acute osseous abnormalities
PHYSICAL EXAM: Exam of the left leg and knee show skin is intact. Chronic edema of the left lower extremity. Focal tenderness about the lateral aspect of the left knee about the joint line. NVI to baseline with motor demonstrated L5-S1. Pain further
limited exam of the left knee
Assessment / Plan
85M with a mechanical fall and difficulty bearing weight of the left knee primarily with possible depressed lateral tibial plateau fracture
-recommend CT scan to more definitively rule out an acute fracture which would affect his weight bearing status
-pending results and repeat exam as pain allows, likely transition to WBAT with PT/OT with assistive devices. His ankle seemed grossly unremarkable but was issued CAM boot by the ED; pending trial to ambulate can consider applcation of CAM boot but
pain seemed more focal to the left knee at time of evaluation
-DVT ppx per primary
-Ortho surgery will continue to follow pending CT scan and clinical reevaluation for defintivie recommendations.
[2025-01-07] VITALS (12 sets, daily range): BP systolic 116–139; BP diastolic 48–92; BMI 37.7; BMI 37.6
--- NOTE | 2025-01-07 01:39 | PTCARENOTE ---
Pt received start of shift, HR SR w/ PACs/PVCs. Pt AAO, slightly hard of hearing. 2L NC. Pt voiding small amounts frequently into urinal by self. PRN Mitzy for pain in knee - see JUL. Pt states knee has a baseline pain but exacerbates significantly
when moved. Updated pt on plan of care, pt states understanding.
[2025-01-07] MEDS: ROXICODONE 5 MG PO ×2 (03:59→08:45)
[2025-01-07] MEDS: TYLENOL 650 MG PO ×2 (04:00→19:35)
[2025-01-07 04:53] LABS: Hematocrit 25.1 % (39.0-52.0); Hemoglobin 8.0 g/dL (13.0-18.0); Mean Corp Hgb Conc. 31.9 g/dL (33.0-37.0); Mean Corpuscular Volume 78.9 fL (80.0-94.0); Nucleated Red Blood Cells % 0.2 % (-); Platelet Count 236 10^3/uL (130-400); Red Cell Dist. Width 19.6 % (11.5-14.5)
[2025-01-07 05:15] LABS: ALT (SGPT) 10 U/L (0-50); AST (SGOT) 21 U/L (17-59); Albumin 3.3 g/dl (3.5-5.0); Alkaline Phosphatase 71 U/L (38-126); Blood Urea Nitrogen 46 mg/dl (9-20); Calcium 7.7 mg/dl (8.4-10.2); Carbon Dioxide 31 mmol/L (22-30); Chloride 99 mmol/L (98-107); Estimated Creatinine Clearance 44 ml/min; Glucose 112 mg/dl (70-99); Potassium 3.7 mmol/L (3.5-5.1); Sodium 136 mmol/L (135-145); Total Protein 6.0 g/dl (6.3-8.2); eGFR 41.96
--- NOTE | 2025-01-07 07:13 | W.PN.UPDATE ---
Update Note
Progress Note Update
The patient was seen and examined by Orthopedic Surgery on rounds this morning. He endorses slight improvement in symptoms since evaluation yesterday, although still experiences pretty significant discomfort localized to the lateral aspect of his
left knee radiating distally to his ankle with movement. He denies any hip/groin pain or back pain. He denies any pain at rest. He denies any paresthesias.
CT lower Ext W/o Iv Cont LT was performed on 01/06/2025 and was made available for my review. Findings: degenerative changes are noted about the left knee, most prominently hypertrophic. There are no findings to confirm recent cortical fracture about
the left knee or suggest focal bony destructive process. Subcortical microfracture/bone bruise cannot be excluded on the basis of this imaging modality. There is a small suprapatellar effusion. Tiny sclerotic density within the lateral femoral
condyle, image 43 series 201 is likely benign such as a bony island. There are no findings to suggest recent cortical fracture about the left ankle with some osseous degenerative changes noted, including degenerative plantar calcaneal enthesophyte.
Evaluation of the soft tissues of the left lower extremity limited without intravenous contrast, without gross findings to suggest abnormal focal fluid collection. Impression: no findings to suggest recent cortical fracture. Degenerative changes.
Small suprapatellar effusion.
On exam, diffuse tenderness to palpation over the lateral knee and joint line. Significant pain with attempted range of motion. He is unable to demonstrate an intact extensor mechanism. He is able to dorsiflex and plantarflex his left ankle.
Based upon the patient's complaints, clinical exam, and radiographs/CT findings, recommended obtaining MRI of the left knee w/o contrast to rule-out internal derangement and disruption of extensor mechanism; order placed. Pain control per primary
team. Ice therapy and elevation for edema control. Orthopedic Surgery will continue to follow along and provide further recommendations upon completion of the MRI.
[2025-01-07] MEDS: SPIRIVA RESPIMAT 2.5 MCG 2 PUFF INH (07:39)
[2025-01-07] MEDS: STRIVERDI RESPIMAT 2 PUFF INH (07:39)
[2025-01-07] MEDS: PROTONIX 40 MG PO (08:44)
[2025-01-07] MEDS: FARXIGA 10 MG PO (08:44)
[2025-01-07] MEDS: FOLVITE 1 MG PO (08:44)
[2025-01-07] MEDS: VITAMIN B-12 1000 MCG PO (08:44)
[2025-01-07] MEDS: ZYLOPRIM 100 MG PO (08:44)
[2025-01-07] MEDS: LOPRESSOR 25 MG PO ×2 (08:45→19:36)
[2025-01-07] MEDS: APRESOLINE 25 MG PO ×3 (08:45→15:50)
[2025-01-07] MEDS: PROSCAR 5 MG PO (08:45)
--- NOTE | 2025-01-07 10:25 | W.PN.GI.CBS2 ---
Addendum entered and electronically signed by Justina Dang MD 01/07/25 15:41:
The NIGHT ORDER SELECTOR or PA's note was reviewed and I agree with the note.
Comment: 85-year-old male past medical history of COPD, CAD with stenting last year, A-fib on Pradaxa, mild , CKD presenting with fall. Orthopedics has evaluated him and recommends CT scan. He was found incidentally to have hemoglobin of 6.8
with iron deficiency anemia. Of note, he recently underwent an upper endoscopy and colonoscopy in June with Dr. Gilbert for iron deficiency at that time as well. 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 Also incidentally found to have Kat.
Suspect having slow occult GI bleeding from AVMs. Plan for capsule endoscopy as outpatient if no other signs of overt bleeding or drop in hemoglobin during this admission. Kaylee Morton APN sent message to coordinate care. Continue to trend
hemoglobin. May benefit from hematology evaluation outpatient as well. Hb stable today no si/sx of bleeding. GI will sign off pls call with ?s.
Original Note:
Today's Communication / Plan
-
Etiology of AGUSTIN related to prior noted angioectasia, esophagitis vs other also some concurrent CKD which may also be adding to chronic anemia
hbg 6.9 s/p 2 units PRBC's with hbg up to 8 today
+ stool / with heme neg testing no further stools
cont IV iron with iron deficiency
cont Protonix daily
will add miralax daily and dulcolax PRN for bowel regiment with immobility and narcotic use
reviewed with patient with stable hbg and continued severe knee pain would like to hold on repeat EGD and agreeable to OP follow up for capsule next
I sent message to gi office to arrange and follow up visit
will sign off call if any signs of aggressive bleeding or drop in hbg
for MRI knee-- ortho following for knee pain
Assessment / Plan
-
Pt is a 85yo with hx COPD, CAD with prior stenting in 2023, CHF, A-fib on Pradaxa, mild , HTN, CKD, chronic lymphedema, gout, BPH, obesity, prior PNA, presents with fall Sunday PM with complaints of ankle pain with difficulty ambulating. On
admission noted with WBC 11,300 with normalization, hbg 6.8 with iron deficient indices, INR 2.19 (with hx Pradaxa use), K 2.6, BUN 67, creat 2, and normal LFT's. In review of chart pt was admitted in June with iron deficiency anemia at that
time. EGD with whitish nummular lesions in esophageal mucosa + ROBBIE, erythema in antrum, 2 cm HH, focal intestinal metaplasia, mild chronic inflammation-- pt was recommended Diflucan and PPI but unable to reach pt for results and letter sent.
colonoscopy with cecal and descending colon angiodysplastic lesions s/p APC, diverticulosis and retained polyp with no bx taken . Pt was scheduled twice in follow up but appt cancelled.
-acute on chronic iron deficiency anemia
-knee/ankle pain s/p fall
-hx esophageal candidiasis-- pt unsure if took Diflucan as recommended
-hx colonic AVM's
-afib on Pradaxa
-hypokalemia
other med problems:
-COPD
- CAD with prior stenting in 2023
-CHF
-mild
- HTN
-CKD
-chronic lymphedema
- gout
- BPH
- obesity
-prior PNA
-admitted non compliance with follow up in past
PLAN:
Etiology of AGUSTIN related to prior noted angioectasia, esophagitis vs other also some concurrent CKD which may also be adding to chronic anemia
hbg 6.9 s/p 2 units PRBC's with hbg up to 8 today
+ stool 01/05 with heme neg testing no further stools
cont IV iron with iron deficiency
cont Protonix daily
will add miralax daily and dulcolax PRN for bowel regiment with immobility and narcotic use
reviewed with patient with stable hbg and continued severe knee pain would like to hold on repeat EGD and agreeable to OP follow up for capsule next
I sent message to gi office to arrange and follow up visit
will sign off call if any signs of aggressive bleeding or drop in hbg
for MRI knee-- ortho following for knee pain
Subjective
Subjective
Date of Service: January 07, 2025
still with complaints of knee pain. 01/05 stool and no further stools overnight, cholesterol lowering diet
Objective
Data Reviewed
Laboratory Data:
Laboratory Results
01/07/25 04:36
01/07/25 04:36
Laboratory Results
PT 24.5 Sec (11.4-14.6) H 01/05/25 17:39
INR 2.19 01/05/25 17:39
APTT 74.9 Sec (23.4-35.0) H 01/05/25 17:39
Magnesium 2.1 mg/dl (1.6-2.3) 01/05/25 17:39
Total Bilirubin 0.9 mg/dl (0.2-1.3) 01/07/25 04:36
AST 21 U/L (17-59) 01/07/25 04:36
ALT 10 U/L (0-50) 01/07/25 04:36
Alkaline Phosphatase 71 U/L (38-126) 01/07/25 04:36
Vital Signs and I&O:
Vital Signs
Temp Pulse Resp BP Pulse Ox
98.1 F 80 15 122/92 79
01/07/25 07:38 01/07/25 09:30 01/07/25 09:30 01/07/25 08:45 01/07/25 08:43
I&O
01/06/25 01/07/25 01/08/25
06:59 06:59 06:59
Intake Total 970 / 1037.5 2720.0 / 2720.0
Output Total 950 / 950 1525 / 1525
Balance 20 / 87.5 1195.0 / 1195.0
Physical Exam
Physical Exam
HEENT: Anicteric and Moist mucous membranes
Cardiology: Normal Sinus Rhythm
Pulmonary: Clear
GI: Soft, Non Distended and Non Tender
Extremities: Other (+knee pain with minimal palpation )
Neuro: Non Focal
[2025-01-07] MEDS: MIRALAX 17 GRAMS PO (12:52)
--- NOTE | 2025-01-07 13:29 | W.PN.HOSP.TC ---
Today's Communication/Plan
-
cxr clear
f/u hbg level
mr knee f/u
adjust pain meds
Assessment / Plan
Assessment / Plan
Tibia/fibula xr
Moderate soft tissue swelling about the medial malleolus
No evidence of acute fracture of the imaged osseous structures.
Mild tibiotalar osteoarthritis.
CT LLE
No findings to suggest recent cortical fracture.
Degenerative changes.
Small suprapatellar effusion.
MRI knee
1. Markedly motion degraded exam.
2. Suspect medial and lateral meniscal tears as described.
3. Probable acute on chronic MCL sprain.
4. 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
5. Large suprapatellar joint effusion and extensive subcutaneous edema about the knee.

#Symptomatic anemia with fall
#History of angiodysplastic lesion nonbleeding on colonoscopy June 2024
#History chronic iron deficiency anemia
- 2 units of PRBC ordered for hemoglobin of 6.8. f/u hbg level, currently ~ 8
- Ferritin of 9, iron saturation of 8%, SI 31 - started on IV iron
- GI evaluated recommended for capsule endoscopy. Recent EGD/colonoscopy in June was nonrevealing except colonic AVM
- Hold Pradaxa
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
- prior baseline 1.5�1.7 in September 2024
- Hold torsemide 80 mg twice daily given ZA and hypokalemia
- Cr down to 1.7 today
#Hypokalemia
- Low K 2.5 at admit, improved post replacement
- monitor levels
# Mild toxic encephalopathy
- Possibly from oxycodone. Trial to tramadol
#Mechanical fall
Left proximal fibula pain/small suprapatellar joint effusion
- Concern for possible fracture left knee, ruled out with CT of left leg
- Ortho help appreciated
- Pain control and PT OT after Ortho clearance
#Elevated INR on Pradaxa
- monitor
#Permanent A-fib
#Bradycardia
#History NSVT September 2024
- Metoprolol, hold Pradaxa
#Chronic heart failure preserved EF
#Chronic lymphedema
- Echo 06/19/2024 EF 60 to 65%, no wall abnormality, enlarged right ventricular size, normal right ventricular systolic function, mild aortic stenosis mild TR, PASP 60-65 mmHg
- weight lower then normal dry weight
- Hold torsemide 80 mg twice daily given ZA
#Mild aortic stenosis
#Pulm HTN
#Essential HTN
#CAD status post cath 06/20/2023
#Gout
#BPH
#Depression
#Class II obesity�BMI 37.2
DVT prophylaxis- SCDs given severe anemia
DNR
Total time spent : 53 mins
Anticipated Discharge: > 48 hours
Subjective/Interval History
-
Date of Service: January 07, 2025
Denies of any problems except having pain in the lower extremity
Some reported shortness of breath to RN
Remains on oxygen through nasal cannula
No acute issues reported otherwise
Objective Data
-
Labs:
Laboratory Results
01/07/25
04:36
WBC 14.9 H
Hgb 8.0 L
Hct 25.1 L
Plt Count 236
Sodium 136
Potassium 3.7
Chloride 99
Carbon Dioxide 31 H
BUN 46 H
Creatinine 1.6 H
Glucose 112 H
Calcium 7.7 L
Total Bilirubin 0.9
AST 21
ALT 10
Alkaline Phosphatase 71
Vital Signs:
Vital Signs
Temp Pulse Resp BP Pulse Ox
98.9 F 77 20 120/71 97
01/07/25 12:18 01/07/25 13:00 01/07/25 13:00 01/07/25 12:52 01/07/25 12:30
I&O
01/06/25 01/07/25 01/08/25
06:59 06:59 06:59
Intake Total 970 / 1037.5 2720.0 / 2720.0 480 / 480
Output Total 950 / 950 1525 / 1525 100 / 100
Balance 20 / 87.5 1195.0 / 1195.0 380 / 380
Review of Systems
-
Respiratory: Reports Trouble Breathing
Cardiac: Reports No Symptoms
Abdomen/GI: Reports No Symptoms
Physical Exam
-
General: No Apparent Distress and Comfortable
HEENT: Negative Oxygen
Respiratory: Clear to Auscultation
Cardiac: Regular Rhythm and S1/S2; Negative Murmur or Rub
GI: Soft, Nontender and Nondistended
Musculoskeletal: Edema, Right Lower Extrem and Edema, Left Lower Extrem
Neuro: Awake, Alert, Oriented, No Motor Deficits and Nonfocal/Grossly Intact
Psych: Calm
[2025-01-07] MEDS: FERRLECIT 110 MG IV (15:49)
[2025-01-07] MEDS: PROZAC 40 MG PO (16:55)
[2025-01-07] MEDS: FLOMAX 0.4 MG PO (16:56)
[2025-01-07] MEDS: ULTRAM 50 MG PO ×2 (16:56→22:57)
[2025-01-07] MEDS: LIPITOR 40 MG PO (16:56)
[2025-01-08] VITALS (10 sets, daily range): BP systolic 105–132; BP diastolic 45–56; BMI 39.3
[2025-01-08] MEDS: TYLENOL 650 MG PO ×2 (06:05→13:54)
[2025-01-08] MEDS: ULTRAM 50 MG PO ×2 (06:05→13:55)
[2025-01-08] MEDS: STRIVERDI RESPIMAT 2 PUFF INH (07:35)
[2025-01-08] MEDS: SPIRIVA RESPIMAT 2.5 MCG 2 PUFF INH (07:35)
[2025-01-08 08:12] LABS: Hematocrit 23.7 % (39.0-52.0); Hemoglobin 7.1 g/dL (13.0-18.0); Mean Corp Hgb Conc. 30.0 g/dL (33.0-37.0); Mean Corpuscular Volume 82.3 fL (80.0-94.0); Nucleated Red Blood Cells % 0 % (-); Platelet Count 227 10^3/uL (130-400); Red Cell Dist. Width 19.9 % (11.5-14.5)
--- NOTE | 2025-01-08 08:17 | W.PN.UPDATE ---
Update Note
Progress Note Update
Patient still endorses a lot of knee pain laterally which radiates down the lateral aspect of his leg. He denies low back pain, numbness, tingling or weakness. Generally he has pain throughout the bilateral lower extremities. His left leg has
moderate effusion. No warmth or erythema noted. Passive motion 0 to 70 degrees has generalized pain. There is diffuse pain over the lateral aspect of the knee. Tenderness diffusely throughout the left calf and Achilles. Generalized weakness
noted. Diffuse pain throughout the left ankle/foot. Diffuse pain when palpating the right lower extremity. His x-rays of the left knee and left tibia/fibula did not reveal obvious fracture. CT scan was able to rule out fracture. MRI of the left
knee confirmed extensor mechanism intact. He did have medial and lateral meniscal tears. Probable acute on chronic MCL sprain. Tricompartmental chondrosis noted. Moderate suprapatella effusion noted with extensive subcutaneous edema and
synovitis. Extensive edema about the knee and ankle without discrete fluid collection. Fortunately his multitude of studies have been able to rule out any significant fracture or internal derangement. He did have a fall which likely contused the
bilateral lower extremities and this was made worse with being on Eliquis. I believe that his lower extremity pains will improve in time. Recommend physical therapy with ambulation with walker as tolerated. Consider ice, elevation and potentially
course of oral steroids to decrease inflammation in the lower extremities, as well as pain. Orthopedics to continue to follow.
[2025-01-08] MEDS: ZYLOPRIM 100 MG PO (08:24)
[2025-01-08] MEDS: PROTONIX 40 MG PO (08:24)
[2025-01-08] MEDS: FARXIGA 10 MG PO (08:24)
[2025-01-08] MEDS: FOLVITE 1 MG PO (08:24)
[2025-01-08] MEDS: MIRALAX 17 GRAMS PO (08:24)
[2025-01-08] MEDS: VITAMIN B-12 1000 MCG PO (08:25)
[2025-01-08] MEDS: LOPRESSOR PO (08:26)
[2025-01-08] MEDS: PROSCAR 5 MG PO (08:26)
[2025-01-08 08:27] LABS: ALT (SGPT) < 10 U/L (0-50); AST (SGOT) 20 U/L (17-59); Albumin 2.9 g/dl (3.5-5.0); Alkaline Phosphatase 75 U/L (38-126); Blood Urea Nitrogen 43 mg/dl (9-20); Calcium 7.8 mg/dl (8.4-10.2); Carbon Dioxide 32 mmol/L (22-30); Chloride 97 mmol/L (98-107); Estimated Creatinine Clearance 42 ml/min; Glucose 112 mg/dl (70-99); Potassium 3.4 mmol/L (3.5-5.1); Sodium 133 mmol/L (135-145); Total Protein 5.5 g/dl (6.3-8.2); eGFR 39.02
[2025-01-08] MEDS: APRESOLINE PO (08:30)
[2025-01-08] MEDS: DELTASONE 20 MG PO (11:17)
[2025-01-08] MEDS: APRESOLINE 25 MG PO ×2 (11:17→16:52)
--- NOTE | 2025-01-08 12:09 | W.PN.HOSP.TC ---
Today's Communication/Plan
-
see note
Assessment / Plan
Assessment / Plan
Tibia/fibula xr
Moderate soft tissue swelling about the medial malleolus
No evidence of acute fracture of the imaged osseous structures.
Mild tibiotalar osteoarthritis.
CT LLE
No findings to suggest recent cortical fracture.
Degenerative changes.
Small suprapatellar effusion.
MRI knee
1. Markedly motion degraded exam.
2. Suspect medial and lateral meniscal tears as described.
3. Probable acute on chronic MCL sprain.
4. 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
5. Large suprapatellar joint effusion and extensive subcutaneous edema about the knee.

#Symptomatic anemia with fall
#History of angiodysplastic lesion nonbleeding on colonoscopy June 2024
#History chronic iron deficiency anemia
- 2 units of PRBC ordered for hemoglobin of 6.8. f/u hbg level, currently ~ 8
- Ferritin of 9, iron saturation of 8%, SI 31 - started on IV iron
- GI evaluated recommended for capsule endoscopy. Recent EGD/colonoscopy in June was nonrevealing except colonic AVM
- Hold Pradaxa
- 9/4 Hemoglobin down again to 7 today. Discussed with GI who recommended to continue to follow hbg level with capsule endoscopy plan OP
- repeat 1 u prbc ordered.
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
- prior baseline 1.5�1.7 in September 2024
- Hold torsemide 80 mg twice daily given ZA and hypokalemia
- Cr down to 1.7 today
#Hypokalemia
- Low K 2.5 at admit, improved post replacement
- low K 3.4 , replace with 20meq K
# Mild toxic encephalopathy
- Possibly from oxycodone. Trial to tramadol
#Mechanical fall
Left proximal fibula pain/small suprapatellar joint effusion
- CT left leg and MRI knee did not show any fracture. MRI showed both meniscal tears and large suprapatellar effusion.
- Ortho recommended pain control and therapy. WBAT.
- Topical NSAID added to regimen
#Elevated INR on Pradaxa
- monitor
#Permanent A-fib
#Bradycardia
#History NSVT September 2024
- maintain on Metoprolol, hold Pradaxa
#Chronic heart failure preserved EF
#Chronic lymphedema
- Echo 06/19/2024 EF 60 to 65%, no wall abnormality, enlarged right ventricular size, normal right ventricular systolic function, mild aortic stenosis mild TR, PASP 60-65 mmHg
- weight lower then normal dry weight
- Hold torsemide 80 mg twice daily given ZA
#Mild aortic stenosis
#Pulm HTN
#Essential HTN
#CAD status post cath 06/20/2023
#Gout
#BPH
#Depression
#Class II obesity�BMI 37.2
DVT prophylaxis- SCDs given severe anemia
DNR
Anticipated Discharge: 24 - 48 hours
Subjective/Interval History
-
Date of Service: January 08, 2025
Denies of having any black stool/blood in stool
Continues to have significant left lower extremity pain
Objective Data
-
Labs:
Laboratory Results
01/08/25
07:35
WBC 14.0 H
Hgb 7.1 L
Hct 23.7 L
Plt Count 227
Sodium 133 L
Potassium 3.4 L
Chloride 97 L
Carbon Dioxide 32 H
BUN 43 H
Creatinine 1.7 H
Glucose 112 H
Calcium 7.8 L
Total Bilirubin 0.9
AST 20
ALT < 10
Alkaline Phosphatase 75
Vital Signs:
Vital Signs
Temp Pulse Resp BP Pulse Ox
98.0 F 75 16 132/53 95
01/08/25 11:10 01/08/25 11:10 01/08/25 11:10 01/08/25 11:10 01/08/25 11:11
I&O
01/07/25 01/08/25 01/09/25
06:59 06:59 06:59
Intake Total 2720.0 / 2720.0 1440 / 1440 0 / 0
Output Total 1525 / 1525 900 / 900
Balance 1195.0 / 1195.0 540 / 540 0 / 0
Review of Systems
-
Respiratory: Reports No Symptoms
Cardiac: Reports No Symptoms
Abdomen/GI: Reports No Symptoms
Physical Exam
-
General: No Apparent Distress and Comfortable
HEENT: Negative Oxygen
Respiratory: Clear to Auscultation
Cardiac: Regular Rhythm and S1/S2; Negative Murmur or Rub
GI: Soft, Nontender and Nondistended
Musculoskeletal: Edema, Right Lower Extrem and Edema, Left Lower Extrem
Neuro: Awake, Alert, Oriented, No Motor Deficits and Nonfocal/Grossly Intact
Psych: Calm
[2025-01-08] MEDS: KCL 20 MEQ PO (13:55)
[2025-01-08] MEDS: FERRLECIT 110 MG IV (14:28)
--- NOTE | 2025-01-08 15:47 | CM ---
CM reviewed chart, per therapy, patient in severe pain with minimal mobility, patient now WBAT. Will continue to follow for therapy recommendations when patient able for discharge recommendations.
Plan; TBD for therapy recommendations, patient likely will need SNF
[2025-01-08] MEDS: FLOMAX 0.4 MG PO (16:52)
[2025-01-08] MEDS: PROZAC 40 MG PO (16:52)
[2025-01-08] MEDS: LIPITOR 40 MG PO (16:52)
[2025-01-08] MEDS: BenGay-Like 1 APPLIC TOPICAL ×2 (17:07→22:54)
[2025-01-08] MEDS: LOPRESSOR 25 MG PO (19:56)
[2025-01-09] VITALS (11 sets, daily range): BP systolic 110–156; BP diastolic 43–66; PULSE 58; O2SAT 92; BMI 39.1
[2025-01-09] MEDS: TYLENOL 650 MG PO ×2 (03:03→13:56)
[2025-01-09] MEDS: ULTRAM 50 MG PO ×2 (03:15→13:55)
[2025-01-09] MEDS: SPIRIVA RESPIMAT 2.5 MCG 2 PUFF INH (07:32)
[2025-01-09] MEDS: STRIVERDI RESPIMAT 2 PUFF INH (07:32)
[2025-01-09] MEDS: FOLVITE 1 MG PO (08:18)
[2025-01-09] MEDS: ZYLOPRIM 100 MG PO (08:18)
[2025-01-09] MEDS: MIRALAX 17 GRAMS PO (08:18)
[2025-01-09] MEDS: PROSCAR 5 MG PO (08:18)
[2025-01-09] MEDS: LOPRESSOR 25 MG PO ×2 (08:18→20:25)
[2025-01-09] MEDS: VITAMIN B-12 1000 MCG PO (08:19)
[2025-01-09] MEDS: DELTASONE 20 MG PO (08:19)
[2025-01-09] MEDS: FARXIGA 10 MG PO (08:19)
[2025-01-09] MEDS: PROTONIX 40 MG PO (08:19)
[2025-01-09] MEDS: APRESOLINE 25 MG PO ×3 (08:19→17:04)
[2025-01-09] MEDS: BenGay-Like 1 APPLIC TOPICAL ×3 (08:23→20:25)
--- NOTE | 2025-01-09 08:29 | W.PN.UPDATE ---
Update Note
Progress Note Update
Patient was seen and examined this morning. He reports improvement of his left lower extremity pain and reports continued more focal about the left knee. Record history review does show that he has historic gout of his bilateral knees/documented
in February 2024. CT is negative for acute osseous abnormality and MRI showing chronic degenerative changes. Differential at this time is acute exacerbation of chronic arthrosis versus possible acute on chronic trauma induced inflammatory
arthropathy.
Patient reports feeling improved this morning. Limited exam secondary to pain and attempted range of motion. Recommend trial with physical therapy when medically safe and if he is still unable to bear significant weight or does work with PT can
consider aspiration of left knee for diagnostic purposes potential focal treatment for crystal arthropathy
[2025-01-09 08:59] LABS: Hematocrit 24.9 % (39.0-52.0); Hemoglobin 7.5 g/dL (13.0-18.0); Mean Corp Hgb Conc. 30.1 g/dL (33.0-37.0); Mean Corpuscular Volume 82.7 fL (80.0-94.0); Nucleated Red Blood Cells % 0 % (-); Platelet Count 242 10^3/uL (130-400); Red Cell Dist. Width 19.3 % (11.5-14.5)
[2025-01-09 09:08] LABS: ALT (SGPT) 11 U/L (0-50); AST (SGOT) 19 U/L (17-59); Albumin 2.8 g/dl (3.5-5.0); Alkaline Phosphatase 88 U/L (38-126); Blood Urea Nitrogen 46 mg/dl (9-20); Calcium 8.0 mg/dl (8.4-10.2); Carbon Dioxide 31 mmol/L (22-30); Chloride 98 mmol/L (98-107); Estimated Creatinine Clearance 42 ml/min; Glucose 102 mg/dl (70-99); Potassium 3.7 mmol/L (3.5-5.1); Sodium 135 mmol/L (135-145); Total Protein 5.5 g/dl (6.3-8.2); eGFR 39.02
--- NOTE | 2025-01-09 11:39 | CM ---
Addendum entered by Ruma Mahoney 01/09/25 16:55:
[facility] called to say they have declined the patient due to previous financial billing issue. [facility]OR [facility]rix shared this with the patient who said it was paid. THOR Hendrix said that the message that he paid will be sent to [facility] by [facility], but
it might not change anything. [facility]OR Hendrix provided a list of SNF's and he is willing to pick more.
Addendum entered by Ruma Mahoney 01/09/25 16:39:
PT/OT evaluated the patient and referral made to [facility].
Original Note:
Following up on patient. [facility]OR [facility]rix read previous notes and aware that pain likely will need SNF, but is participation is difficult with his pain.
PT/OT is planning to see the patient today. [facility] met with the patient who is agreeable for SNF, but only wants [facility]. THOR [facility]rix attempted to obtain second option, but he refused to provide one. Patient stated that [facility] is will NEVER
be an option for him. Patient then went on to explain that he stayed at [facility] about 2 years ago and got a bill likely due to his staying beyond 21 days, he has no secondary insurance.
[facility] is unaware of any discharge this weekend, likely next week.
PLAN: Once PT/OT is in, referral will be made to [facility] SNF.
[2025-01-09] MEDS: LASIX 40 MG IV (12:06)
[2025-01-09] MEDS: DULCOLAX 10 MG PO (12:22)
--- NOTE | 2025-01-09 14:50 | W.PN.HOSP.TC ---
Today's Communication/Plan
-
see note
monitor hbg
4u prbc today
maintain on steroids
resume back diuretics
Assessment / Plan
Assessment / Plan
Tibia/fibula xr
Moderate soft tissue swelling about the medial malleolus
No evidence of acute fracture of the imaged osseous structures.
Mild tibiotalar osteoarthritis.
CT LLE
No findings to suggest recent cortical fracture.
Degenerative changes.
Small suprapatellar effusion.
MRI knee
1. Markedly motion degraded exam.
2. Suspect medial and lateral meniscal tears as described.
3. Probable acute on chronic MCL sprain.
4. 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
5. Large suprapatellar joint effusion and extensive subcutaneous edema about the knee.

#Symptomatic anemia with fall
#History of angiodysplastic lesion nonbleeding on colonoscopy June 2024
#History chronic iron deficiency anemia
- 2 units of PRBC ordered for hemoglobin of 6.8. f/u hbg level, currently ~ 8
- Ferritin of 9, iron saturation of 8%, SI 31 - started on IV iron
- GI evaluated recommended for capsule endoscopy. Recent EGD/colonoscopy in June was nonrevealing except colonic AVM
- Hold Pradaxa
- 9/4 Hemoglobin 7 - 3rd unit ordered. Discussed with GI and continue with plan for OP capsule endoscopy
- 9/5 Hbg still 7.5 - 4ht unit PRBC ordered.
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
- prior baseline 1.5�1.7 in September 2024
- Hold torsemide 80 mg twice daily given ZA and hypokalemia
- Cr down to 1.7 today
#Hypokalemia
- Low K 2.5 at admit, improved post replacement
- low K 3.4 , replace with 20meq K
# Mild toxic encephalopathy
- Possibly from oxycodone. Trial to tramadol
#Mechanical fall
Left proximal fibula pain/small suprapatellar joint effusion
- CT left leg and MRI knee did not show any fracture. MRI showed both meniscal tears and large suprapatellar effusion.
- Ortho recommended pain control and therapy. WBAT.
- Topical NSAID added to regimen
# Right knee pain
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
- On oral prednisone 20 mg daily continue
#Elevated INR on Pradaxa
- monitor
#Permanent A-fib
#Bradycardia
#History NSVT September 2024
- maintain on Metoprolol, hold Pradaxa
#Chronic heart failure preserved EF
#Chronic lymphedema
- Echo 06/19/2024 EF 60 to 65%, no wall abnormality, enlarged right ventricular size, normal right ventricular systolic function, mild aortic stenosis mild TR, PASP 60-65 mmHg
- weight lower then normal dry weight
- Resume back torsemide 80 mg twice daily. weight up 3kg.
Mild aortic stenosis
Pulm HTN
Essential HTN
CAD status post cath 06/20/2023
Gout
BPH
Depression
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
DVT prophylaxis- SCDs given severe anemia
DNR
Anticipated Discharge: > 48 hours
Subjective/Interval History
-
Date of Service: January 09, 2025
Complaining of some right knee pain today
No reported bowel movements overnight
No other issues
Objective Data
-
Labs:
Laboratory Results
01/09/25
07:57
WBC 13.0 H
Hgb 7.5 L
Hct 24.9 L
Plt Count 242
Sodium 135
Potassium 3.7
Chloride 98
Carbon Dioxide 31 H
BUN 46 H
Creatinine 1.7 H
Glucose 102 H
Calcium 8.0 L
Total Bilirubin 0.7
AST 19
ALT 11
Alkaline Phosphatase 88
Vital Signs:
Vital Signs
Temp Pulse Resp BP Pulse Ox
97.0 F 80 18 110/61 94
01/09/25 14:31 01/09/25 14:31 01/09/25 11:13 01/09/25 14:31 01/09/25 11:13
I&O
01/08/25 01/09/25 01/10/25
06:59 06:59 06:59
Intake Total 1440 / 1440 1570 / 1570 0 / 0
Output Total 900 / 900 700 / 700
Balance 540 / 540 870 / 870 0 / 0
Review of Systems
-
Respiratory: Reports No Symptoms
Cardiac: Reports No Symptoms
Abdomen/GI: Reports No Symptoms
Physical Exam
-
General: No Apparent Distress and Comfortable
HEENT: Negative Oxygen
Respiratory: Clear to Auscultation
Cardiac: Regular Rhythm and S1/S2; Negative Murmur or Rub
GI: Soft, Nontender and Nondistended
Musculoskeletal: Edema, Right Lower Extrem and Edema, Left Lower Extrem
Neuro: Awake, Alert, Oriented, No Motor Deficits and Nonfocal/Grossly Intact
Psych: Calm
[2025-01-09] MEDS: LIPITOR 40 MG PO (16:53)
[2025-01-09] MEDS: PROZAC 40 MG PO (16:53)
[2025-01-09] MEDS: FLOMAX 0.4 MG PO (16:54)
[2025-01-09] MEDS: DEMADEX 80 MG PO (17:03)
[2025-01-10] MEDS: TYLENOL 650 MG PO (02:34)
[2025-01-10] MEDS: ULTRAM 50 MG PO ×2 (02:34→21:09)
[2025-01-10 03:50] VITALS: BP 130/52
[2025-01-10 06:00] VITALS: BMI 39.5
[2025-01-10 07:12] VITALS: BP 125/62
[2025-01-10] MEDS: VITAMIN B-12 1000 MCG PO (07:28)
[2025-01-10] MEDS: DEMADEX 80 MG PO ×2 (07:28→16:18)
[2025-01-10] MEDS: ZYLOPRIM 100 MG PO (07:29)
[2025-01-10] MEDS: PROSCAR 5 MG PO (07:29)
[2025-01-10] MEDS: LOPRESSOR 25 MG PO (07:29)
[2025-01-10] MEDS: PROTONIX 40 MG PO (07:29)
[2025-01-10] MEDS: FOLVITE 1 MG PO (07:29)
[2025-01-10] MEDS: APRESOLINE 25 MG PO ×3 (07:29→16:19)
[2025-01-10] MEDS: DELTASONE 20 MG PO (07:30)
[2025-01-10] MEDS: BenGay-Like 1 APPLIC TOPICAL ×2 (07:30→16:21)
[2025-01-10] MEDS: MIRALAX 17 GRAMS PO (07:30)
[2025-01-10] MEDS: FARXIGA 10 MG PO (07:30)
[2025-01-10] MEDS: STRIVERDI RESPIMAT 2 PUFF INH (08:08)
[2025-01-10] MEDS: SPIRIVA RESPIMAT 2.5 MCG 2 PUFF INH (08:08)
--- NOTE | 2025-01-10 08:23 | W.PN.UPDATE ---
Update Note
Progress Note Update
Patient reports that he is doing much better than when I saw him 48 hours ago. He was started on prednisone and swelling and pain in the lower extremities seems to be improving. He reports bilateral leg pain improved dramatically but it has been
difficult for him to participate in physical therapy. Multitude of x-rays, CT scan and MRI did not show anything which requires any further orthopedic attention. In questioning patient it sounds like he was minimal ambulator before his fall. From
his fall and being on Pradaxa it likely resulted in bruising in the bilateral legs and his pain. He does have osteoarthritis about the knee has history of gout. This morning vital signs are stable, hemoglobin stable and WBC trending down. Left
knee exam shows moderate effusion without warmth or erythema. No significant pain about the knee. Range of motion 0-75 degrees without instability or significant pain. Edema noted throughout the lower extremities. Diffuse pain throughout the
bilateral lower extremities improved dramatically. Distal neurovascular did appear intact. I suspect he will continue to improve with conservative treatment modalities and a course of formal physical therapy. For now orthopedics to sign off.
Please reengage if any additional concerns arise.
[2025-01-10 11:05] VITALS: BP 141/65
[2025-01-10 11:26] LABS: Hematocrit 29.6 % (39.0-52.0); Hemoglobin 9.4 g/dL (13.0-18.0); Mean Corp Hgb Conc. 31.8 g/dL (33.0-37.0); Mean Corpuscular Volume 82.0 fL (80.0-94.0); Platelet Count 270 10^3/uL (130-400); Red Cell Dist. Width 19.5 % (11.5-14.5)
[2025-01-10 11:45] LABS: Blood Urea Nitrogen 60 mg/dl (9-20); Calcium 8.2 mg/dl (8.4-10.2); Carbon Dioxide 31 mmol/L (22-30); Chloride 97 mmol/L (98-107); Estimated Creatinine Clearance 45 ml/min; Glucose 136 mg/dl (70-99); Potassium 3.9 mmol/L (3.5-5.1); Sodium 135 mmol/L (135-145); eGFR 41.96
--- NOTE | 2025-01-10 14:16 | W.PN.HOSP.TC ---
Today's Communication/Plan
-
f/u hbg
laxatives for BM
continue diuretics
continue steroids
Assessment / Plan
Assessment / Plan
Tibia/fibula xr
Moderate soft tissue swelling about the medial malleolus
No evidence of acute fracture of the imaged osseous structures.
Mild tibiotalar osteoarthritis.
CT LLE
No findings to suggest recent cortical fracture.
Degenerative changes.
Small suprapatellar effusion.
MRI knee
1. Markedly motion degraded exam.
2. Suspect medial and lateral meniscal tears as described.
3. Probable acute on chronic MCL sprain.
4. 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
5. Large suprapatellar joint effusion and extensive subcutaneous edema about the knee.

#Symptomatic anemia with fall
#History of angiodysplastic lesion nonbleeding on colonoscopy June 2024
#History chronic iron deficiency anemia
- 2 units of PRBC ordered for hemoglobin of 6.8. f/u hbg level, currently ~ 8
- Ferritin of 9, iron saturation of 8%, SI 31 - started on IV iron
- GI evaluated recommended for capsule endoscopy. Recent EGD/colonoscopy in June was nonrevealing except colonic AVM
- Hold Pradaxa
- 9/4 Hemoglobin 7 - 3rd unit ordered. Discussed with GI and continue with plan for OP capsule endoscopy
- 9/5 Hbg still 7.5 - 4ht unit PRBC ordered.
- 9/6 hbg 9.5, monitor.
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
- prior baseline 1.5�1.7 in September 2024
- Resumed back on torsemide. cr close to baseline.
#Hypokalemia
- replace as needed
# Mild toxic encephalopathy - resolved
- Possibly from oxycodone. Trial to tramadol
#Mechanical fall
Left proximal fibula pain/small suprapatellar joint effusion
- CT left leg and MRI knee did not show any fracture. MRI showed both meniscal tears and large suprapatellar effusion.
- Ortho recommended pain control and therapy. WBAT.
- Topical NSAID added to regimen
# Right knee pain - Improving
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
- On oral prednisone 20 mg daily continue
#Elevated INR on Pradaxa
- monitor
#Permanent A-fib
#Bradycardia
#History NSVT September 2024
- maintain on Metoprolol, hold Pradaxa
#Chronic heart failure preserved EF
#Chronic lymphedema
- Echo 06/19/2024 EF 60 to 65%, no wall abnormality, enlarged right ventricular size, normal right ventricular systolic function, mild aortic stenosis mild TR, PASP 60-65 mmHg
- Resume back torsemide 80 mg twice. f/u weight trend.
Mild aortic stenosis
Pulm HTN
Essential HTN
CAD status post cath 06/20/2023
Gout
BPH
Depression
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
DVT prophylaxis- SCDs given severe anemia
DNR
Anticipated Discharge: 24 - 48 hours
Subjective/Interval History
-
Date of Service: January 10, 2025
no new issues overnight
right knee pain is better
Objective Data
-
Labs:
Laboratory Results
01/10/25
11:04
WBC 12.6 H
Hgb 9.4 L D
Hct 29.6 L
Plt Count 270
Sodium 135
Potassium 3.9
Chloride 97 L
Carbon Dioxide 31 H
BUN 60 H
Creatinine 1.6 H
Glucose 136 H
Calcium 8.2 L
Vital Signs:
Vital Signs
Temp Pulse Resp BP Pulse Ox
97.5 F 68 18 141/65 96
01/10/25 11:05 01/10/25 11:55 01/10/25 11:05 01/10/25 11:55 01/10/25 11:05
I&O
01/09/25 01/10/25 01/11/25
06:59 06:59 06:59
Intake Total 1570 / 1570 1690 / 1690
Output Total 700 / 700 1575 / 1575
Balance 870 / 870 115 / 115
Review of Systems
-
Respiratory: Reports No Symptoms
Cardiac: Reports No Symptoms
Abdomen/GI: Reports No Symptoms
Physical Exam
-
General: No Apparent Distress and Comfortable
HEENT: Negative Oxygen
Respiratory: Clear to Auscultation
Cardiac: Regular Rhythm and S1/S2; Negative Murmur or Rub
GI: Soft, Nontender and Nondistended
Musculoskeletal: Edema, Right Lower Extrem and Edema, Left Lower Extrem
Neuro: Awake, Alert, Oriented, No Motor Deficits and Nonfocal/Grossly Intact
Psych: Calm
[2025-01-10 15:33] VITALS: BP 140/65
[2025-01-10] MEDS: FLOMAX 0.4 MG PO (16:21)
[2025-01-10] MEDS: PROZAC 40 MG PO (16:21)
[2025-01-10] MEDS: LIPITOR 40 MG PO (16:21)
[2025-01-10] MEDS: LOPRESSOR PO (21:08)
[2025-01-10] MEDS: BenGay-Like TOPICAL (21:09)
[2025-01-10 22:35] VITALS: BP 128/73
[2025-01-11 03:40] VITALS: BP 145/54
[2025-01-11] MEDS: ULTRAM 50 MG PO ×3 (03:45→20:51)
[2025-01-11 05:26] VITALS: BMI 38.5
[2025-01-11] MEDS: TYLENOL 650 MG PO (07:06)
[2025-01-11] MEDS: STRIVERDI RESPIMAT 2 PUFF INH (07:10)
[2025-01-11] MEDS: SPIRIVA RESPIMAT 2.5 MCG 2 PUFF INH (07:10)
[2025-01-11 07:37] VITALS: BP 150/60
[2025-01-11] MEDS: BenGay-Like 1 APPLIC TOPICAL (07:39)
[2025-01-11] MEDS: ZYLOPRIM 100 MG PO (07:40)
[2025-01-11] MEDS: PROTONIX 40 MG PO (07:40)
[2025-01-11] MEDS: MIRALAX 17 GRAMS PO (07:40)
[2025-01-11] MEDS: VITAMIN B-12 1000 MCG PO (07:40)
[2025-01-11] MEDS: PROSCAR 5 MG PO (07:40)
[2025-01-11] MEDS: FARXIGA 10 MG PO (07:41)
[2025-01-11] MEDS: DELTASONE 20 MG PO (07:41)
[2025-01-11] MEDS: FOLVITE 1 MG PO (07:41)
[2025-01-11 07:56] LABS: Hematocrit 28.8 % (39.0-52.0); Hemoglobin 9.4 g/dL (13.0-18.0); Mean Corp Hgb Conc. 32.6 g/dL (33.0-37.0); Mean Corpuscular Volume 80.2 fL (80.0-94.0); Platelet Count 249 10^3/uL (130-400); Red Cell Dist. Width 19.5 % (11.5-14.5)
[2025-01-11] MEDS: LOPRESSOR 25 MG PO ×2 (07:57→20:52)
[2025-01-11] MEDS: DEMADEX 80 MG PO ×2 (07:58→15:26)
[2025-01-11] MEDS: APRESOLINE 25 MG PO ×3 (07:58→15:25)
[2025-01-11 08:52] LABS: Blood Urea Nitrogen 67 mg/dl (9-20); Calcium 8.0 mg/dl (8.4-10.2); Carbon Dioxide 31 mmol/L (22-30); Chloride 99 mmol/L (98-107); Estimated Creatinine Clearance 47 ml/min; Glucose 71 mg/dl (70-99); Potassium 3.8 mmol/L (3.5-5.1); Sodium 136 mmol/L (135-145); eGFR 45.34
[2025-01-11] MEDS: PRADAXA 150 MG PO ×2 (12:13→20:59)
--- NOTE | 2025-01-11 13:01 | W.PN.HOSP.TC ---
Today's Communication/Plan
-
resume Pradaxa from AM today
f/u hbg level
discharge planning for snf rehab
Assessment / Plan
Assessment / Plan
Tibia/fibula xr
Moderate soft tissue swelling about the medial malleolus
No evidence of acute fracture of the imaged osseous structures.
Mild tibiotalar osteoarthritis.
CT LLE
No findings to suggest recent cortical fracture.
Degenerative changes.
Small suprapatellar effusion.
MRI knee
1. Markedly motion degraded exam.
2. Suspect medial and lateral meniscal tears as described.
3. Probable acute on chronic MCL sprain.
4. 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
5. Large suprapatellar joint effusion and extensive subcutaneous edema about the knee.

#Symptomatic anemia with fall
#History of angiodysplastic lesion nonbleeding on colonoscopy June 2024
#History chronic iron deficiency anemia
- 2 units of PRBC ordered for hemoglobin of 6.8. f/u hbg level, currently ~ 8
- Ferritin of 9, iron saturation of 8%, SI 31 - started on IV iron
- GI evaluated recommended for capsule endoscopy. Recent EGD/colonoscopy in June was nonrevealing except colonic AVM
- Hold Pradaxa
- 9/4 Hemoglobin 7 - 3rd unit ordered. Discussed with GI and continue with plan for OP capsule endoscopy
- 9/5 Hbg still 7.5 - 4th unit of PRBC ordered.
- 9/7. had good bowel movement yesterday. Brown. Hemoglobin 9.4 today. Resuming Pradaxa monitor for any drop in hemoglobin.
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
- prior baseline 1.5�1.7 in September 2024
- Resumed back on torsemide. cr close to baseline.
#Hypokalemia
- replace as needed
# Mild toxic encephalopathy - resolved
- Possibly from oxycodone. Trial to tramadol
#Mechanical fall
Left proximal fibula pain/small suprapatellar joint effusion
- CT left leg and MRI knee did not show any fracture. MRI showed both meniscal tears and large suprapatellar effusion.
- Ortho recommended pain control and therapy. WBAT.
- Topical NSAID added to regimen
# Right knee pain - Improving
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
- On oral prednisone 20 mg daily continue
#Elevated INR on Pradaxa
- monitor
#Permanent A-fib
#Bradycardia
#History NSVT September 2024
- maintain on Metoprolol, hold Pradaxa
#Chronic heart failure preserved EF
#Chronic lymphedema
- Echo 06/19/2024 EF 60 to 65%, no wall abnormality, enlarged right ventricular size, normal right ventricular systolic function, mild aortic stenosis mild TR, PASP 60-65 mmHg
- Resume back torsemide 80 mg twice. f/u weight trend.
Mild aortic stenosis
Pulm HTN
Essential HTN
CAD status post cath 06/20/2023
Gout
BPH
Depression
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
DVT prophylaxis- SCDs given severe anemia
DNR
Anticipated Discharge: 24 - 48 hours
Subjective/Interval History
-
Date of Service: January 11, 2025
Right knee pain better
No new complaints
Objective Data
-
Labs:
Laboratory Results
01/11/25
06:35
WBC 9.1
Hgb 9.4 L
Hct 28.8 L
Plt Count 249
Sodium 136
Potassium 3.8
Chloride 99
Carbon Dioxide 31 H
BUN 67 H
Creatinine 1.5 H
Glucose 71
Calcium 8.0 L
Vital Signs:
Vital Signs
Temp Pulse Resp BP Pulse Ox
97.7 F 53 18 129/67 95
01/11/25 07:37 01/11/25 11:27 01/11/25 07:37 01/11/25 11:27 01/11/25 08:30
I&O
01/10/25 01/11/25 01/12/25
06:59 06:59 06:59
Intake Total 1690 / 1690 1060 / 1060
Output Total 1575 / 1575 3395 / 3395
Balance 115 / 115 -2335 / -2335
Review of Systems
-
Respiratory: Reports No Symptoms
Cardiac: Reports No Symptoms
Abdomen/GI: Reports No Symptoms
Physical Exam
-
General: No Apparent Distress and Comfortable
HEENT: Negative Oxygen
Respiratory: Clear to Auscultation
Cardiac: Regular Rhythm and S1/S2; Negative Murmur or Rub
GI: Soft, Nontender and Nondistended
Musculoskeletal: Edema, Right Lower Extrem and Edema, Left Lower Extrem
Neuro: Awake, Alert, Oriented, No Motor Deficits and Nonfocal/Grossly Intact
Psych: Calm
--- NOTE | 2025-01-11 14:08 | CM ---
Addendum entered by Joycelyn Dan 01/11/25 14:21:
Patient reported that if the billing issue is cleared up when his friend goes there tomorrow and they have a bed, [facility] is his first SNF preference
Original Note:
Met w/ patient at bedside to obtain alternate SNF site preferences; he identified [facility] and [facility]; [facility] referral updated
Primary Contact: Stephan Gilmore, Friend,
[2025-01-11 15:01] VITALS: BP 140/64
[2025-01-11] MEDS: BenGay-Like TOPICAL ×2 (15:25→23:09)
[2025-01-11] MEDS: LIPITOR 40 MG PO (17:01)
[2025-01-11] MEDS: FLOMAX 0.4 MG PO (17:01)
[2025-01-11] MEDS: PROZAC 40 MG PO (17:02)
[2025-01-11 23:00] VITALS: BP 131/52
[2025-01-12 06:00] VITALS: BMI 39.3
[2025-01-12] MEDS: ULTRAM 50 MG PO (06:48)
[2025-01-12 07:10] VITALS: BP 141/52
[2025-01-12] MEDS: STRIVERDI RESPIMAT 2 PUFF INH (07:29)
[2025-01-12] MEDS: SPIRIVA RESPIMAT 2.5 MCG 2 PUFF INH (07:29)
[2025-01-12] MEDS: PROSCAR 5 MG PO (09:00)
[2025-01-12] MEDS: PRADAXA 150 MG PO (09:00)
[2025-01-12] MEDS: PROTONIX 40 MG PO (09:00)
[2025-01-12 09:01] LABS: Hematocrit 33.0 % (39.0-52.0); Hemoglobin 10.1 g/dL (13.0-18.0); Mean Corp Hgb Conc. 30.6 g/dL (33.0-37.0); Mean Corpuscular Volume 84.2 fL (80.0-94.0); Platelet Count 309 10^3/uL (130-400); Red Cell Dist. Width 20.0 % (11.5-14.5)
[2025-01-12] MEDS: ZYLOPRIM 100 MG PO (09:01)
[2025-01-12] MEDS: DELTASONE 20 MG PO (09:01)
[2025-01-12] MEDS: VITAMIN B-12 1000 MCG PO (09:01)
[2025-01-12] MEDS: FOLVITE 1 MG PO (09:01)
[2025-01-12] MEDS: BenGay-Like 1 APPLIC TOPICAL ×2 (09:02→15:23)
[2025-01-12] MEDS: APRESOLINE 25 MG PO ×3 (09:03→15:23)
[2025-01-12] MEDS: FARXIGA 10 MG PO (09:03)
[2025-01-12] MEDS: MIRALAX 17 GRAMS PO (09:03)
[2025-01-12 09:05] LABS: Blood Urea Nitrogen 58 mg/dl (9-20); Calcium 7.9 mg/dl (8.4-10.2); Carbon Dioxide 37 mmol/L (22-30); Chloride 95 mmol/L (98-107); Estimated Creatinine Clearance 48 ml/min; Glucose 117 mg/dl (70-99); Potassium 3.5 mmol/L (3.5-5.1); Sodium 140 mmol/L (135-145); eGFR 45.34
[2025-01-12] MEDS: LOPRESSOR 25 MG PO (09:11)
[2025-01-12] MEDS: DEMADEX 80 MG PO ×2 (09:44→15:22)
[2025-01-12] MEDS: TYLENOL 650 MG PO (10:13)
[2025-01-12 12:30] VITALS: BP 125/55; PULSE 55; O2SAT 94
[2025-01-12 12:33] VITALS: BP 125/55; PULSE 55; O2SAT 94
--- NOTE | 2025-01-12 12:44 | W.PN.HOSP.TC ---
Today's Communication/Plan
-
Hemoglobin stable
DC to SNF
Assessment / Plan
Assessment / Plan
Tibia/fibula xr
Moderate soft tissue swelling about the medial malleolus
No evidence of acute fracture of the imaged osseous structures.
Mild tibiotalar osteoarthritis.
CT LLE
No findings to suggest recent cortical fracture.
Degenerative changes.
Small suprapatellar effusion.
MRI knee
1. Markedly motion degraded exam.
2. Suspect medial and lateral meniscal tears as described.
3. Probable acute on chronic MCL sprain.
4. 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
5. Large suprapatellar joint effusion and extensive subcutaneous edema about the knee.

#Symptomatic anemia with fall
#History of angiodysplastic lesion nonbleeding on colonoscopy June 2024
#History chronic iron deficiency anemia
- 2 units of PRBC ordered for hemoglobin of 6.8. f/u hbg level, currently ~ 8
- Ferritin of 9, iron saturation of 8%, SI 31 - started on IV iron
- GI evaluated recommended for capsule endoscopy. Recent EGD/colonoscopy in June was nonrevealing except colonic AVM
- Hold Pradaxa
- 9/4 Hemoglobin 7 - 3rd unit ordered. Discussed with GI and continue with plan for OP capsule endoscopy
- 9/5 Hbg still 7.5 - 4th unit of PRBC ordered.
- 9/7. had good bowel movement yesterday. Rishi. Hemoglobin 9.4 today. Resuming Pradaxa monitor for any drop in hemoglobin.
-9/8- Hgb remains stable at 10.1.
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
- prior baseline 1.5�1.7 in September 2024
- Resumed back on torsemide. cr close to baseline.
#Hypokalemia
- replace as needed
# Mild toxic encephalopathy - resolved
- Possibly from oxycodone.
#Mechanical fall
Left proximal fibula pain/small suprapatellar joint effusion
- CT left leg and MRI knee did not show any fracture. MRI showed both meniscal tears and large suprapatellar effusion.
- Ortho recommended pain control and therapy. WBAT.
- Topical NSAID added to regimen
# Right knee pain - Improved
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
- On oral prednisone 20 mg daily continue and complete finite course
#Elevated INR on Pradaxa
- monitor
#Permanent A-fib
#Bradycardia
#History NSVT September 2024
- maintain on Metoprolol, and Pradaxa
#Chronic heart failure preserved EF
#Chronic lymphedema
- Echo 06/19/2024 EF 60 to 65%, no wall abnormality, enlarged right ventricular size, normal right ventricular systolic function, mild aortic stenosis mild TR, PASP 60-65 mmHg
- Resume back torsemide 80 mg twice. f/u weight trend.
Mild aortic stenosis
Pulm HTN
Essential HTN
CAD status post cath 06/20/2023
Gout
BPH
Depression
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
DVT prophylaxis- SCDs given severe anemia
DNR
More than 30 minutes spent in discharge including
Final examination of the patient
Summarizing hospital stay
Instructions for continuing care to all relevant caregivers
Preparation of discharge records, prescriptions, and referral forms
Total time spent (in minutes): 52
Anticipated Discharge: Today
Subjective/Interval History
-
Date of Service: January 12, 2025
denies knee pain today
Objective Data
-
Labs:
Laboratory Results
01/12/25
08:17
WBC 8.8
Hgb 10.1 L
Hct 33.0 L
Plt Count 309 D
Sodium 140
Potassium 3.5
Chloride 95 L
Carbon Dioxide 37 H
BUN 58 H
Creatinine 1.5 H
Glucose 117 H
Calcium 7.9 L
Vital Signs:
Vital Signs
Temp Pulse Resp BP Pulse Ox
97.8 F 61 16 125/55 96
01/12/25 07:10 01/12/25 12:38 01/12/25 07:32 01/12/25 12:38 01/12/25 07:32
I&O
01/11/25 01/12/25 01/13/25
06:59 06:59 06:59
Intake Total 1060 / 1060 960 / 960
Output Total 3395 / 3395 4350 / 4350
Balance -2335 / -2335 -3390 / -3390
Physical Exam
-
General: No Apparent Distress and Comfortable
HEENT: Negative Oxygen
Respiratory: Clear to Auscultation
Cardiac: Regular Rhythm and S1/S2; Negative Murmur or Rub
GI: Soft, Nontender and Nondistended
Musculoskeletal: Edema, Right Lower Extrem and Edema, Left Lower Extrem
Neuro: Awake, Alert, Oriented, No Motor Deficits and Nonfocal/Grossly Intact
Psych: Calm
--- NOTE | 2025-01-12 12:51 | W.DCSUMMARY ---
Discharge Summary
Discharge Data
Date of Admission: 01/05/25
Date of Discharge: 01/12/25
-
Pending Results: No
Hospital Course
85-year-old male past medical history of A-fib, NSVT, chronic HFpEF, chronic lymphedema, pulmonary hypertension, primary hypertension CAD gout depression BPH is presenting to the hospital after mechanical fall. Patient was evaluated during
hospitalization by orthopedic and gastroenterology. Patient underwent extensive imaging of the lower extremity. It showed soft tissue swelling around the medial malleolus left-sided. Patient further underwent MRI of the knee which showed medial
and lateral meniscal tear. Ortho recommended pain control and therapy. Weightbearing as tolerated. Patient also with anemia. Patient was eval by gastroenterology who stated having slow occult GI bleeding from AVMs. Patient will need to
follow-up outpatient for capsule endoscopy. Patient hemoglobin stabilized. Pradaxa was restarted. Patient also elevated creatinine which downtrended. Diuretics were restarted. Patient was worked by PT and OT and will be discharged to skilled
nursing facility.
Discharge Plan
-
Patient Disposition: Intermediate/SNF
Discharge Diagnosis/Procedures: Symptomatic anemia
Hypokalemia
Mild toxic encephalopathy
Mechanical fall
Left proximal fibula pain/small suprapatellar joint effusion
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
Elevated INR
Acute kidney injury on chronic kidney disease
Diet: Low Cholesterol
Activity: As tolerated
Driving Restrictions: Not until seen by your Dr
Blood Work: cbc and BMP and INR 1 week after discharge via primary doctor
Referrals:
Cynthia Gilbert MD [Active, Gastroenterology]
Referral Note: call to arrange capsule endoscopy with [facility] in GI office. Will then need GI follow up with Dr. Gilbert or Ken after completed.
Rajiv Pavon MD [Family Provider] - in less than 1 week
Prescriptions:
New
prednisone 20 mg Tablet
20 mg PO DAILY 5 Days Qty: 5 0RF
Analgesic [place] (m.salic-menth) 15-10 % Cream
1 applic topical BID Qty: 28 0RF
Rx Instructions:
apply to left knee
acetaminophen 325 mg Tablet
650 mg PO Q4HPRN PRN (Reason: mild pain/PAULINO ) Qty: 14 0RF
pantoprazole 40 mg Tablet,Delayed Release (Dr/Ec)
40 mg PO DAILY 30 Days Qty: 30 0RF
tramadol 50 mg Tablet
50 mg PO Q6HPRN PRN (Reason: sev pain) Qty: 12 0RF
Continued
atorvastatin 40 MG tablet
40 mg PO QPM
dabigatran etexilate [Pradaxa] 150 MG capsule
150 mg PO BID
tamsulosin 0.4 MG capsule
0.4 mg PO QPM
finasteride 5 MG tablet
5 mg PO DAILY
metoprolol tartrate 25 MG tablet
25 mg PO BID
folic acid 1 mg Tablet
1 mg PO DAILY
umeclidinium-vilanterol [Anoro Ellipta] 62.5-25 mcg/actuation Blister With Device
1 inh INHALATION R DAILY
cyanocobalamin (vitamin B-12) 1,000 mcg tablet extended release
1,000 mcg PO DAILY
albuterol sulfate 2.5 mg /3 mL (0.083 %) solution for nebulization
2.5 mg inhalation R QIDPRN PRN (Reason: sob)
allopurinol 100 mg tablet
100 mg PO DAILY
potassium chloride 20 mEq tablet,ER particles/crystals
20 meq PO BID
dapagliflozin propanediol [Farxiga] 10 mg tablet
10 mg PO DAILY
albuterol sulfate [Ventolin HFA] 90 mcg/actuation Hfa Aerosol Inhaler
1 puff INHALATION R Q4HPRN PRN (Reason: wheeze/SOB)
fluoxetine 40 mg capsule
40 mg PO QPM
torsemide 20 mg tablet
80 mg PO BID
hydralazine 25 mg tablet
25 mg PO TID@0800,1200,1600
Discontinued
mirtazapine 15 mg Tablet
15 mg PO HS Qty: 30 0RF
Discharge Orders:
Discharge Patient (As Directed); Ordered 01/12/25
Ordered By: Fly Mcdonough
Discharge Date and Time
Print Language: VENEZUELAN
--- NOTE | 2025-01-12 13:10 | CM ---
Addendum entered by Dennise Peguero 01/12/25 14:13:
rehab director occupational therapist time is 17:00. Primary contact , Stephan, left message on voicemail.
[facility]
Report # [phone]

Original Note:
REviewed chart. Met with pt at bedside. IMM given and placed on chart. [facility] accepted pt for DC today. Transportation by ambulance set up. Friend, Stephan notified re discharge.
Plan: D/C to [facility]
[2025-01-12 15:18] VITALS: BP 135/72
== END 2025-01-12 17:30 | DRG 377 ==
LOC: 4 EAST ACU 21:27
PROVIDERS: Clinical Nurse Specialist Family Health; Hospitalist; Nurse Practitioner Adult Health; ADMITTING PHYSICIAN Internal Medicine; ATTENDING PHYSICIAN Hospitalist; CONSULT PHYSICIAN Orthopaedic Surgery; EMERGENCY PHYSICIAN Emergency Medicine; FAMILY PHYSICIAN Internal Medicine; OTHER PHYSICIAN Internal Medicine Gastroenterology
PROC: 30233N1 Transfusion of Nonautologous Red Blood Cells into Peripheral Vein, Percutaneous Approach (ICD-10-PCS; 2025-01-05)
DX: K55.21 Angiodysplasia of colon with hemorrhage (principal); G92.9 Unspecified toxic encephalopathy; I50.32 Chronic diastolic (congestive) heart failure; I13.0 Hypertensive heart and chronic kidney disease with heart failure and stage 1 through stage 4 chronic kidney disease, or unspecified chronic kidney disease; J44.0 Chronic obstructive pulmonary disease with (acute) lower respiratory infection; I48.21 Permanent atrial fibrillation; N17.9 Acute kidney failure, unspecified; M25.562 Pain in left knee; E78.00 Pure hypercholesterolemia, unspecified; N18.32 Chronic kidney disease, stage 3b; I25.10 Atherosclerotic heart disease of native coronary artery without angina pectoris; R09.02 Hypoxemia; E66.01 Morbid (severe) obesity due to excess calories; D50.9 Iron deficiency anemia, unspecified; I89.0 Lymphedema, not elsewhere classified; N40.0 Benign prostatic hyperplasia without lower urinary tract symptoms; G47.33 Obstructive sleep apnea (adult) (pediatric); M10.9 Gout, unspecified; R79.1 Abnormal coagulation profile; E66.812 Obesity, class 2; F32.A Depression, unspecified; I35.0 Nonrheumatic aortic (valve) stenosis; D63.1 Anemia in chronic kidney disease; M25.462 Effusion, left knee; D50.0 Iron deficiency anemia secondary to blood loss (chronic); I27.20 Pulmonary hypertension, unspecified; E87.6 Hypokalemia; M11.862 Other specified crystal arthropathies, left knee; E86.0 Dehydration; W01.0XXA Fall on same level from slipping, tripping and stumbling without subsequent striking against object, initial encounter; Y93.01 Activity, walking, marching and hiking; Y92.003 Bedroom of unspecified non-institutional (private) residence as the place of occurrence of the external cause; Z66 Do not resuscitate; Z60.2 Problems related to living alone; Z74.01 Bed confinement status; Z86.73 Personal history of transient ischemic attack (TIA), and cerebral infarction without residual deficits; Z87.891 Personal history of nicotine dependence; Z98.1 Arthrodesis status; Z68.39 Body mass index [BMI] 39.0-39.9, adult; Z95.5 Presence of coronary angioplasty implant and graft; Z68.37 Body mass index [BMI] 37.0-37.9, adult; Z87.01 Personal history of pneumonia (recurrent); Z91.199 Patient's noncompliance with other medical treatment and regimen due to unspecified reason; Z79.84 Long term (current) use of oral hypoglycemic drugs
CPT/HCPCS: 36430; 71045; 71046; 73564; 73590; 73700; 73721; 80048; 80053; 81003; 81015; 82550; 82607; 82728; 82746; 82962; 83540; 83550; 83735; 83880; 84484; 85014; 85018; 85025; 85027; 85610; 85730; 86850; 86900; 86901; 86920; 93005; 94640; 96361; 96374; 97110; 97163; 97167; 97530; 97535; 99291; J2916; P9016

== ENCOUNTER → 2025-01-19 11:56 | Outpatient (REF) | payer OTHER, MEDICARE, SELFPAY ==
[2025-01-19 12:39] LABS: Hematocrit 36.9 % (39.0-52.0); Hemoglobin 11.1 g/dL (13.0-18.0); Mean Corp Hgb Conc. 30.1 g/dL (33.0-37.0); Mean Corpuscular Volume 87.2 fL (80.0-94.0); Platelet Count 360 10^3/uL (130-400); Red Cell Dist. Width 21.0 % (11.5-14.5)
[2025-01-19 13:13] LABS: Blood Urea Nitrogen 39 mg/dl (9-20); Calcium 7.7 mg/dl (8.4-10.2); Carbon Dioxide 32 mmol/L (22-30); Chloride 100 mmol/L (98-107); Glucose 89 mg/dl (70-99); Potassium 4.0 mmol/L (3.5-5.1); Sodium 137 mmol/L (135-145); eGFR 49.25
== END ==
LOC: OLABN 11:56
PROVIDERS: ATTENDING PHYSICIAN Student in an Organized Health Care Education/Training Program
DX: R60.9 Edema, unspecified (principal); D50.8 Other iron deficiency anemias; Z79.899 Other long term (current) drug therapy
CPT/HCPCS: 36415; 80048; 85027

== ENCOUNTER → 2025-01-26 11:29 | Outpatient (REF) | payer OTHER, MEDICARE, SELFPAY ==
[2025-01-26 12:23] LABS: Hematocrit 36.0 % (39.0-52.0); Hemoglobin 10.7 g/dL (13.0-18.0); Mean Corp Hgb Conc. 29.7 g/dL (33.0-37.0); Mean Corpuscular Volume 85.7 fL (80.0-94.0); Nucleated Red Blood Cells % 0 % (-); Platelet Count 334 10^3/uL (130-400); Red Cell Dist. Width 20.9 % (11.5-14.5)
== END ==
LOC: OLABN 11:29
PROVIDERS: ATTENDING PHYSICIAN Student in an Organized Health Care Education/Training Program
DX: I10 Essential (primary) hypertension (principal)
CPT/HCPCS: 36415; 85025

== ENCOUNTER → 2025-02-04 12:19 | Outpatient (REF) | payer OTHER, MEDICARE, SELFPAY ==
[2025-02-04 14:35] LABS: Uric Acid 6.7 mg/dl (3.5-8.5)
== END ==
LOC: OLABN 12:19
PROVIDERS: ATTENDING PHYSICIAN Student in an Organized Health Care Education/Training Program
DX: R52 Pain, unspecified (principal); M10.9 Gout, unspecified
CPT/HCPCS: 36415; 84550

== ENCOUNTER → 2025-02-17 09:56 | Outpatient (REF) | payer OTHER, MEDICARE, SELFPAY ==
[2025-02-17 10:49] LABS: Hematocrit 32.2 % (39.0-52.0); Hemoglobin 9.7 g/dL (13.0-18.0); Mean Corp Hgb Conc. 30.1 g/dL (33.0-37.0); Mean Corpuscular Volume 85.9 fL (80.0-94.0); Platelet Count 227 10^3/uL (130-400); Red Cell Dist. Width 21.2 % (11.5-14.5)
[2025-02-17 11:06] LABS: Blood Urea Nitrogen 25 mg/dl (9-20); Calcium 8.1 mg/dl (8.4-10.2); Carbon Dioxide 33 mmol/L (22-30); Chloride 100 mmol/L (98-107); Glucose 104 mg/dl (70-99); Potassium 3.4 mmol/L (3.5-5.1); Sodium 138 mmol/L (135-145); eGFR 59.26
== END ==
LOC: OLABN 09:56
PROVIDERS: ATTENDING PHYSICIAN Student in an Organized Health Care Education/Training Program
DX: I10 Essential (primary) hypertension (principal); R60.9 Edema, unspecified
CPT/HCPCS: 36415; 80048; 85027

== ENCOUNTER 2025-03-24 07:06 | Emergency (ER) | payer MEDICARE, SELFPAY ==
[2025-03-24 07:11] VITALS: BP 127/65
[2025-03-24 07:17] VITALS: BMI 37.8
[2025-03-24 07:44] LABS: Hematocrit 33.2 % (39.0-52.0); Hemoglobin 10.2 g/dL (13.0-18.0); Mean Corp Hgb Conc. 30.7 g/dL (33.0-37.0); Mean Corpuscular Volume 89.2 fL (80.0-94.0); Nucleated Red Blood Cells % 0 % (-); Platelet Count 224 10^3/uL (130-400); Red Cell Dist. Width 19.9 % (11.5-14.5)
[2025-03-24 07:58] LABS: ALT (SGPT) 12 U/L (0-50); AST (SGOT) 14 U/L (17-59); Albumin 3.2 g/dl (3.5-5.0); Alkaline Phosphatase 86 U/L (38-126); Blood Urea Nitrogen 27 mg/dl (9-20); Calcium 8.5 mg/dl (8.4-10.2); Carbon Dioxide 36 mmol/L (22-30); Chloride 96 mmol/L (98-107); Estimated Creatinine Clearance 54 ml/min; Glucose 109 mg/dl (70-99); Potassium 3.5 mmol/L (3.5-5.1); Sodium 135 mmol/L (135-145); Total Protein 6.0 g/dl (6.3-8.2); eGFR 53.84
[2025-03-24 08:00] VITALS: BP 112/65
[2025-03-24 08:02] LABS: Troponin I 0.018 ng/ml
--- NOTE | 2025-03-24 08:04 | ED.GENMED ---
History of Present Illness
General
Chief Complaint: Chest Pain
Source: patient
Exam Limitations: none
Time Seen by Provider: 03/24/25 07:14
History of Present Illness
History of Present Illness:
Patient is an 85-year-old male,With past medical history of persistent atrial fibrillation (on metoprolol 25 mg and Pradaxa), chronic heart failure with preserved ejection fraction, chronic lymphedema, pulmonary hypertension, essential hypertension,
coronary artery disease with history of 2 stents, gout, depression and was recently discharged from the hospital with discharge diagnosis of symptomatic anemia, hypokalemia and meniscal tears.
As per the patient, he was in his usual state of health, he lives at [place], around 5 AM this morning, he was talking to his aid when he had a sudden severe onset of pain on the left side of the chest. He denies any other associated
symptoms and describes the pain as intermittent coming in waves. The chest pain was fine when he lay down flat but as soon as he moved his pain was triggered again. Due to his extensive cardiac history EMS services were called, patient received a
dose of aspirin 325 mg prior to coming to the ER and was on 2 L of oxygen on arrival.
Initial evaluation, showed patient is vitally stable except for mild bradycardia. EKG done in the ER consistent with bradycardia and atrial fibrillation. His chest pain is reproducible.
He also said that he has been having cough from last 3 to 5 days and is expectorating brownish colored sputum.
Denies any fever, chills, palpitations, syncopal episode, sweating, shortness of breath.
Past History
Past History
ED Past Medical History: Arrthythmia (Paroxysmal atrial fibrillation), CAD, CHF, COPD, CVA, HTN, Hypercholesterolemia and Other (CKD)
ED Past Surgical History: Cardiac and Orthopedic (Resection of a thoracic spine lesion and spinal fusion)
Social History
Tobacco: Former smoker
Alcohol: None
Drug: None
Personal:
Living: alone
Employment: Retired
Family History
Family History: Other (Noncontributory)
Review of Systems
Review of Systems
All Other Systems: ROS reviewed and negative except as documented in HPI and ROS
Phy Exam
General Physical Exam
General Presentation: mild distress (Due to chest pain with changing position)
Cardiovascular Exam
Cardiovascular Exam: bradycardia and irregularly irregular
Pulmonary Exam
Pulmonary Exam: lungs clear, no rales, no rhonchi and no wheezing
Oxygen Status: oxygen 2 liters via NC
Cough: productive cough
Gastrointestinal Exam
Gastrointestinal Exam: normal bowel sounds, non tender and soft
Neurological Exam
Neurological Exam: alert, oriented x3 and no motor deficits
Musculoskeletal Exam
Musculoskeletal Exam: edema (Bilateral pedal edema extending up to the knees)
Scores
Heart Score for Chest Pain Patients
STEMI patient?: No
History: Moderately Suspicious
ECG: Normal
Age: >/= 65 years
Risk Factors: >/= 3 Risk Factors or History of CAD
Troponin: </= Normal Limit
Heart Score for Chest Pain Patients: 5
Heart Score Risk: 20.3% MACE over next 6 weeks
Course
Orders/Labs/Results
Orders:
Orders
03/24/25 07:10
Electrocardiogram (*1) Urgent
Reason for Study: Chest Pain
EKG- Treatment ONCE
03/24/25 07:28
Complete Blood Count/With Diff Urgent
Comprehensive Metabolic Panel Urgent
NT-proBNP Urgent
Comment: ADD ON
Troponin I Urgent
03/24/25 08:17
Add On- LAB Stat
Tests Added?: Pro-BNP
Portable Chest Xray [CR Chest Portable - 1 View] Stat
Comment:
Reason For Exam: Pneumonia
Reason Study Needs to be Portable: Patient Unstable
Abnormal Lab Results
03/24/25
07:28
RBC 3.72 L 10^6/uL
(4.70-6.10)
Hgb 10.2 L g/dL
(13.0-18.0)
Hct 33.2 L %
(39.0-52.0)
MCHC 30.7 L g/dL
(33.0-37.0)
RDW 19.9 H %
(11.5-14.5)
Abs Immat Gran (auto) 0.1 H 10^3/uL
(0-0.05)
Absolute Neuts (auto) 8.0 H 10^3/uL
(1.4-6.5)
Absolute Monos (auto) 0.7 H 10^3/uL
(0.1-0.6)
Lymphocytes % 12.1 L %
(20.5-51.1)
Chloride 96 L mmol/L
(98-107)
Carbon Dioxide 36 H mmol/L
(22-30)
BUN 27 H mg/dl
(9-20)
Glucose 109 H mg/dl
(70-99)
AST 14 L U/L
(17-59)
Total Protein 6.0 L g/dl
(6.3-8.2)
Albumin 3.2 L g/dl
(3.5-5.0)
03/24/25 07:28
03/24/25 07:28
Vital Signs
Initial and Last Documented VS:
Initial Vital Signs
Pulse Resp Pulse Ox
53 19 96
03/24/25 07:09 03/24/25 07:09 03/24/25 07:09
Last Documented Vital Signs
Temp Pulse Resp BP Pulse Ox
97.7 F 60 19 112/65 94
03/24/25 07:11 03/24/25 08:00 03/24/25 08:00 03/24/25 08:00 03/24/25 08:05
MDM/Problems Addressed
Differential Diagnosis Includes:
Acute coronary syndrome
Pleurisy due to pulmonary embolism
Pneumonia
MDM/Problems Addressed:
EKG consistent with persistent atrial fibrillation and bradycardia-check troponin levels And proBNP levels
Check a chest x-ray to look for pneumonia
*Pulse Oximetry
SaO2: 94
Nasal Cannula flow liters per minute: 2
Patient hypoxic: no
*Critical Care Note
Total Time (30-74mins, 75-104mins- exclusive of procedures): Not Applicable
ED Attending Note
-
Portions of this chart may have been created with voice recognition software.� Occasional wrong word or��sound alike� substitutions may have occurred due to the inherent limitations of voice recognition software.
Discharge Plan
Departure
Prescriptions:
No Action
atorvastatin 40 MG tablet
40 mg PO QPM
tamsulosin 0.4 MG capsule
0.4 mg PO QPM
finasteride 5 MG tablet
5 mg PO DAILY
metoprolol tartrate 25 MG tablet
25 mg PO BID
folic acid 1 mg Tablet
1 mg PO DAILY
allopurinol 100 mg tablet
100 mg PO DAILY
potassium chloride 20 mEq tablet,ER particles/crystals
20 meq PO BID
albuterol sulfate [Ventolin HFA] 90 mcg/actuation Hfa Aerosol Inhaler
1 puff INHALATION R Q4HPRN PRN (Reason: wheeze/SOB)
torsemide 20 mg tablet
80 mg PO BID
hydralazine 25 mg tablet
25 mg PO TID@0800,1200,1600
trazodone 50 mg Tablet
50 mg PO HS
cyanocobalamin (vitamin B-12) 1,000 mcg Tablet
1,000 mcg PO DAILY
magnesium hydroxide [Milk of Magnesia] 400 mg/5 mL Suspension
2,400 mg PO [id number] PRN (Reason: if no bm by 3rd day)
benzonatate [Tessalon Perles] 100 mg Capsule
100 mg PO TID
bisacodyl [Dulcolax (bisacodyl)] 10 mg Suppository
10 mg MS DAILYPRN PRN (Reason: if no bm aftr mom)
duloxetine [Cymbalta] 20 mg Capsule,Delayed Release(Dr/Ec)
40 mg PO HS
Eliquis 5 mg Tablet
5 mg PO BID
umeclidinium-vilanterol [Anoro Ellipta] 62.5-25 mcg/actuation Blister With Device
1 inh INHALATION R DAILY
Senna Plus 8.6-50 mg Capsule
2 tab-cap PO HS
acetaminophen 325 mg tablet
650 mg PO Q6HPRN PRN (Reason: mild pain/PAULINO )
tramadol 50 mg tablet
50 mg PO Q6HPRN PRN (Reason: severe pain)
pantoprazole 40 mg tablet,delayed release (DR/EC)
40 mg PO DAILY
Referrals:
Scott Corona MD [Family Provider]
Interventions
Interventions:
*Risk Screen - Suicide Last Done: 03/24/25 07:17
*General Assessment Last Done: 03/24/25 07:17
*Neglect/Abuse Screening Last Done: 03/24/25 07:17
ED- Cardiac Assessment Last Done: 03/24/25 07:45
Discharge Date and Time
Print Language: INDONESIAN
[2025-03-24 09:00] VITALS: BP 111/61
[2025-03-24 10:43] VITALS: BP 123/61
[2025-03-24 11:00] VITALS: BP 130/58
[2025-03-24 11:19] LABS: Troponin I < 0.012 ng/ml
[2025-03-24 13:00] VITALS: BP 119/71
== END 2025-03-24 13:14 ==
LOC: EMR 07:06
PROVIDERS: EMERGENCY PHYSICIAN Emergency Medicine; FAMILY PHYSICIAN Internal Medicine
DX: R07.89 Other chest pain (principal); I48.19 Other persistent atrial fibrillation; I25.10 Atherosclerotic heart disease of native coronary artery without angina pectoris; I13.0 Hypertensive heart and chronic kidney disease with heart failure and stage 1 through stage 4 chronic kidney disease, or unspecified chronic kidney disease; I50.32 Chronic diastolic (congestive) heart failure; N18.9 Chronic kidney disease, unspecified; I27.20 Pulmonary hypertension, unspecified; E78.00 Pure hypercholesterolemia, unspecified; J44.9 Chronic obstructive pulmonary disease, unspecified; I89.0 Lymphedema, not elsewhere classified; F32.A Depression, unspecified; M10.9 Gout, unspecified; Z86.73 Personal history of transient ischemic attack (TIA), and cerebral infarction without residual deficits; Z95.5 Presence of coronary angioplasty implant and graft; Z87.891 Personal history of nicotine dependence
CPT/HCPCS: 99284; 71045; 80053; 83880; 84484; 85025; 93005